=== PATIENT | male | born 1935 | race Caucasian/White ===

== ENCOUNTER 2024-02-18 15:05 | Emergency (ER) | payer MEDICARE, OTHER, SELFPAY ==
[2024-02-18 15:09] VITALS: BP 120/60
[2024-02-18 15:48] LABS: % Immature Granulocytes 0.8 % (0-0.5); % Lymphocytes 8.1 % (20.5-51.1); % Monocytes 5.3 % (1.7-9.3); % Neutrophils 85.8 % (42.2-75.2); Absolute Immature Granulocytes 0.1 10^3/uL (0-0.05); Absolute Lymphocytes 0.8 10^3/uL (1.2-3.4); Absolute Monocytes 0.6 10^3/uL (0.1-0.6); Absolute Neutrophils 8.9 10^3/uL (1.4-6.5); Hematocrit 31.7 % (39.0-52.0); Hemoglobin 9.5 g/dL (13.0-18.0); Mean Corpuscular Hgb 30.4 pg (27.0-31.0); Mean Corpuscular Volume 101.6 fL (80.0-94.0); Mean Platelet Volume 9.5 fL (7.4-10.4); Nucleated Red Blood Cells % 0 % (-); Platelet Count 214 10^3/uL (130-400); Red Blood Cell Count 3.12 10^6/uL (4.70-6.10); Red Cell Dist. Width 17.3 % (11.5-14.5); White Blood Cell Count 10.4 10^3/uL (4.8-10.8)
[2024-02-18 16:04] LABS: ALT (SGPT) 22 U/L (0-50); AST (SGOT) 26 U/L (17-59); Albumin 3.7 g/dl (3.5-5.0); Alkaline Phosphatase 70 U/L (38-126); Blood Urea Nitrogen 28 mg/dl (9-20); Carbon Dioxide 25 mmol/L (22-30); Chloride 102 mmol/L (98-107); Glucose 328 mg/dl (70-99); Potassium 4.4 mmol/L (3.5-5.1); Sodium 136 mmol/L (135-145); Total Bilirubin 0.3 mg/dl (0.2-1.3); Total Protein 6.1 g/dl (6.3-8.2); eGFR > 60.00
[2024-02-18 16:13] LABS: NT-proBNP 722 pg/ml; Troponin I 0.017 ng/ml
[2024-02-18 17:45] VITALS: BP 140/75; BMI 29.8
[2024-02-18 18:51] VITALS: BP 129/65
--- NOTE | 2024-02-18 19:00 | ED.GENMED ---
History of Present Illness
General
Chief Complaint: Breathing Problem
Source: patient
Exam Limitations: none
Time Seen by Provider: 02/18/24 17:01
Nursing documentation reviewed up to this point in time: agreed with
History of Present Illness
History of Present Illness:
Patient to ED with complaint of increasing SOB x 24 hours. Reports 2lb weight gain. Hx of CHF. Brought to ED by son for eval. Pulse ox 96% RA on arrival.
Past History
Past History
ED Past Medical History: CHF and HTN
Social History
Tobacco: Non-smoker
Alcohol: None
Drug: None
Review of Systems
Review of Systems
Allergies reviewed?: Yes
All Other Systems: ROS reviewed and negative except as documented in HPI and ROS
Constitutional: Reports no symptoms
EENT: Reports no symptoms
Respiratory: Reports trouble breathing
Cardiac: Reports no symptoms
ABD/GI: Reports no symptoms
: Reports no symptoms
Musculoskeletal: Reports no symptoms
Skin: Reports no symptoms
Neurological: Reports no symptoms
Psychiatric: Reports no symptoms
Phy Exam
General Physical Exam
General Presentation: well appearing and no apparent distress
General age: appears stated age
General Skin: warm and dry
General Habitus: normal
General Mental: alert
Cardiovascular Exam
Cardiovascular Exam: regular rate/rhythm
Pulmonary Exam
Pulmonary Exam: lungs clear, no respiratory distress and chest non tender
Musculoskeletal Exam
Musculoskeletal Exam: full ROM and neuro vasc intact
Skin Exam
Skin Exam: normal color, warm/dry and no rash
Psychiatric Exam
Psychiatric Exam: normal mood/affect
Scores
Heart Failure Risk
Heart Failure Risk Score: Yes
History of Stroke or TIA: No
History of intubation for respiratory distress: No
Heart rate on ED arrival >/= 110: No
SaO2 <90% on arrival on room air: No
HR >/=110 during 3min walk test (or too ill to perform test): No
ECG has acute ischemic changes: No
Urea >/=12mmol/L (BUN 33.6mg/dL): No
Serum CO2>/=35mmol/L: No
Troponin I or T elevated to VT Level (0.4mg/dL): No
NT-proBNP >/=5,000ng/L (5,000pg/ml): No
HF Risk Score: 0
Admission Status: LOW RISK 2.8% Consider discharge to home with f/u visit to PCP/Park Manager
Course
Orders/Labs/Results
Orders:
Orders
02/18/24 15:13
Electrocardiogram (*1) Urgent
Reason for Study: Shortness of Breath
EKG- Treatment ONCE
02/18/24 15:32
Complete Blood Count/With Diff Urgent
Comprehensive Metabolic Panel Urgent
NT-proBNP Urgent
Troponin I Urgent
02/18/24 17:12
CR Chest - 2 Views Urgent
Comment:
Reason For Exam: SOB
02/18/24 19:13
Furosemide [Lasix] 40 mg PO NOW STA
Abnormal Lab Results
02/18/24
15:32
RBC 3.12 L 10^6/uL
(4.70-6.10)
Hgb 9.5 L g/dL
(13.0-18.0)
Hct 31.7 L %
(39.0-52.0)
MCV 101.6 H fL
(80.0-94.0)
MCHC 30.0 L g/dL
(33.0-37.0)
RDW 17.3 H %
(11.5-14.5)
Abs Immat Gran (auto) 0.1 H 10^3/uL
(0-0.05)
Absolute Neuts (auto) 8.9 H 10^3/uL
(1.4-6.5)
Absolute Lymphs (auto) 0.8 L 10^3/uL
(1.2-3.4)
Immature Gran % 0.8 H %
(0-0.5)
Neutrophils % 85.8 H %
(42.2-75.2)
Lymphocytes % 8.1 L %
(20.5-51.1)
BUN 28 H mg/dl
(9-20)
Glucose 328 H mg/dl
(70-99)
Total Protein 6.1 L g/dl
(6.3-8.2)
02/18/24 15:32
02/18/24 15:32
Vital Signs
Initial and Last Documented VS:
Initial Vital Signs
Temp Pulse Resp BP Pulse Ox
97.5 F 74 20 120/60 95
02/18/24 15:09 02/18/24 15:09 02/18/24 15:09 02/18/24 15:09 02/18/24 15:09
Last Documented Vital Signs
Temp Pulse Resp BP Pulse Ox
97.5 F 64 18 133/67 100
02/18/24 15:09 02/18/24 20:00 02/18/24 20:00 02/18/24 20:00 02/18/24 20:00
*Radiology
Radiology exam reviewed: radiology read reviewed
*Pulse Oximetry
Patient hypoxic: no
*Critical Care Note
Total Time (30-74mins, 75-104mins- exclusive of procedures): Not Applicable
Update Note
Update Note:
CXR mild CHF. No hypoxemia in dept. Offered admissin but he would prefer to go home. Will double lasix x 3 days. Close follow up with PCP. Given instructions on s/s to return to ED and he is agreeable to plan.
ED Attending Note
-
Portions of this chart may have been created with voice recognition software.� Occasional wrong word or��sound alike� substitutions may have occurred due to the inherent limitations of voice recognition software.
Discharge Plan
Departure
Patient Disposition: Home (Routine Discharge)
Date of Disposition: 02/18/24
Time of Disposition: 19:14
Patient with high blood pressure during this ER visit?: No
Condition: Good
Covid-19: Not Applicable
Discharge Problem:
Mild congestive heart failure
Instructions: Heart Failure ED
Referrals:
Van John MD [Family Provider] -
Activity Restrictions/Additional Instructions:
Continue Lasix 80mg for the next 2 days. Return to the emergency department immediately for any changes in/worsening of your symptoms. Follow up with your family doctor. Your blood chemistry should be repeated in the nex 5-7 days
Interventions
Interventions:
*Risk Screen - Suicide Last Done: 02/18/24 17:45
*General Assessment Last Done: 02/18/24 17:45
*Neglect/Abuse Screening Last Done: 02/18/24 17:45
ED- Fall Risk Assessment Last Done: 02/18/24 17:45
*ED COVID-19 Vaccine History Last Done: 02/18/24 17:45
*Nursing Disposition Last Done: 02/18/24 20:07
ED- Cardiac Assessment Last Done: 02/18/24 17:45
ED- Pulmonary Assessment Last Done: 02/18/24 17:45
Discharge Date and Time
Discharge Date/Time: 02/18/24 20:07
Print Language: GEORGIAN
[2024-02-18] MEDS: LASIX 40 MG PO (19:52)
[2024-02-18 20:00] VITALS: BP 133/67
== END 2024-02-18 20:07 | disposition home or self-care (01) ==
LOC: EMR 15:05
PROVIDERS: EMERGENCY PHYSICIAN Emergency Medicine; FAMILY PHYSICIAN Family Medicine
DX: I50.9 Heart failure, unspecified (principal); I11.0 Hypertensive heart disease with heart failure
CPT/HCPCS: 99283; 71046; 80053; 83880; 84484; 85025; 93005

== ENCOUNTER 2024-02-22 15:16 | Emergency (ER) | payer MEDICARE, OTHER, SELFPAY ==
[2024-02-22 15:22] VITALS: BP 127/59
--- NOTE | 2024-02-22 16:48 | ED.GENMED ---
History of Present Illness
<Tonie London PA-C - Last Filed: 02/22/24 18:49>
General
Chief Complaint: Breathing Problem
Source: patient
Exam Limitations: none
Time Seen by Provider: 02/22/24 16:17
Nursing documentation reviewed up to this point in time: agreed with
History of Present Illness
History of Present Illness:
pt i a 88 y/o M from [facility]
h/o afib, chf, htn, hld, gerd
poor historian, hard of hearing
from [place] but has been here for about 2 month, [facility]
waiting to see cards and get established pcp
has had some shortness of breath, more than basleine the past few days
was here 02/17 and reported 2 pound weight gain so he had w.u
bnp normal
cxr showed maybe mildchf
his lasix 40 mg once a day was bumped to 80mg for 3 days
despite this, he granger still gained another 3 pounds
he feels it in his abdomen
he also has chronic GERD s ymptoms, not having them now but has had heart burn today
no cp, pleuritic pain, cough, leg swelling, vomiting, diarrhea, black stools
Past History
<Tonie London PA-C - Last Filed: 02/22/24 18:49>
Past History
ED Past Medical History: CHF and HTN
Social History
Tobacco: Non-smoker
Alcohol: None
Drug: None
Review of Systems
<Tonie London PA-C - Last Filed: 02/22/24 18:49>
Review of Systems
Allergies reviewed?: Yes
All Other Systems: Not applicable
Phy Exam
<Tonie London PA-C - Last Filed: 02/22/24 18:49>
Physical Exam
Physical Exam:
GENERAL: Alert , in no apparent distress
EYE: pupils equal and reactive
NECK: Supple
ENT: o/p clr, mmm.
CARDIAC: Regular rate and rhythm .
LUNGS: Clear breath sounds bilaterally, no acute respiratory distress, no wheezes/rales/rhonchi
ABDOMEN: Soft, obese, ? fluid wave, without focal tenderness, no r/g, no cvat, normal bowel sounds
NEUROLOGICAL: Alert and oriented, no focal neuro deficits
SKIN: Warm and dry, skin intact.
MUSCULOSKELETAL: No peripheral edema, well perfused. neg faisal's sign
PSYCH: Normal and appropriate interaction.
Course
<Tonie London PA-C - Last Filed: 02/22/24 18:49>
Orders/Labs/Results
Orders:
Orders
02/22/24 15:25
ECG [Electrocardiogram (*1)] Urgent
Reason for Study: Shortness of Breath
EKG- Treatment ONCE
02/22/24 16:40
Cardiac Monitoring- Treatment ONCE
CR Chest - 2 Views Urgent
Comment:
Reason For Exam: chf
02/22/24 17:17
Complete Blood Count/With Diff Urgent
Comprehensive Metabolic Panel Urgent
Magnesium Urgent
NT-proBNP Urgent
Troponin I Urgent
Abnormal Lab Results
02/22/24
17:17
RBC 3.20 L 10^6/uL
(4.70-6.10)
Hgb 9.8 L g/dL
(13.0-18.0)
Hct 31.7 L %
(39.0-52.0)
MCV 99.1 H fL
(80.0-94.0)
MCHC 30.9 L g/dL
(33.0-37.0)
RDW 16.9 H %
(11.5-14.5)
Abs Immat Gran (auto) 0.1 H 10^3/uL
(0-0.05)
Absolute Neuts (auto) 9.0 H 10^3/uL
(1.4-6.5)
Absolute Lymphs (auto) 0.9 L 10^3/uL
(1.2-3.4)
Immature Gran % 0.7 H %
(0-0.5)
Neutrophils % 84.5 H %
(42.2-75.2)
Lymphocytes % 8.9 L %
(20.5-51.1)
BUN 31 H mg/dl
(9-20)
Glucose 301 H mg/dl
(70-99)
Magnesium 2.4 H mg/dl
(1.6-2.3)
Total Protein 6.2 L g/dl
(6.3-8.2)
02/22/24 17:17
02/22/24 17:17
Vital Signs
Initial and Last Documented VS:
Initial Vital Signs
Temp Pulse Resp BP Pulse Ox
98.6 F 68 20 127/59 96
02/22/24 15:22 02/22/24 15:22 02/22/24 15:22 02/22/24 15:22 02/22/24 15:22
Last Documented Vital Signs
Temp Pulse Resp BP Pulse Ox
98.6 F 70 17 127/59 100
02/22/24 15:22 02/22/24 17:30 02/22/24 17:30 02/22/24 15:22 02/22/24 17:30
Libertylt;Storm Garcia, DO - Last Filed: 02/22/24 18:40>
Orders/Labs/Results
Orders:
Orders
02/22/24 15:25
ECG [Electrocardiogram (*1)] Urgent
Reason for Study: Shortness of Breath
EKG- Treatment ONCE
02/22/24 16:40
Cardiac Monitoring- Treatment ONCE
CR Chest - 2 Views Urgent
Comment:
Reason For Exam: chf
02/22/24 17:17
Complete Blood Count/With Diff Urgent
Comprehensive Metabolic Panel Urgent
Magnesium Urgent
NT-proBNP Urgent
Troponin I Urgent
Abnormal Lab Results
02/22/24
17:17
RBC 3.20 L 10^6/uL
(4.70-6.10)
Hgb 9.8 L g/dL
(13.0-18.0)
Hct 31.7 L %
(39.0-52.0)
MCV 99.1 H fL
(80.0-94.0)
MCHC 30.9 L g/dL
(33.0-37.0)
RDW 16.9 H %
(11.5-14.5)
Abs Immat Gran (auto) 0.1 H 10^3/uL
(0-0.05)
Absolute Neuts (auto) 9.0 H 10^3/uL
(1.4-6.5)
Absolute Lymphs (auto) 0.9 L 10^3/uL
(1.2-3.4)
Immature Gran % 0.7 H %
(0-0.5)
Neutrophils % 84.5 H %
(42.2-75.2)
Lymphocytes % 8.9 L %
(20.5-51.1)
BUN 31 H mg/dl
(9-20)
Glucose 301 H mg/dl
(70-99)
Magnesium 2.4 H mg/dl
(1.6-2.3)
Total Protein 6.2 L g/dl
(6.3-8.2)
02/22/24 17:17
02/22/24 17:17
Vital Signs
Initial and Last Documented VS:
Initial Vital Signs
Temp Pulse Resp BP Pulse Ox
98.6 F 68 20 127/59 96
02/22/24 15:22 02/22/24 15:22 02/22/24 15:22 02/22/24 15:22 02/22/24 15:22
Last Documented Vital Signs
Temp Pulse Resp BP Pulse Ox
98.6 F 70 17 127/59 100
02/22/24 15:22 02/22/24 17:30 02/22/24 17:30 02/22/24 15:22 02/22/24 17:30
ED Attending Note
<Tonie London PA-C - Last Filed: 02/22/24 18:49>
-
Portions of this chart may have been created with voice recognition software.� Occasional wrong word or��sound alike� substitutions may have occurred due to the inherent limitations of voice recognition software.
<Storm Garcia DO - Last Filed: 02/22/24 18:40>
ED Attending Note
Patient seen and examined by attending physician: Yes
I performed the substantive portion of visit, reviewed & personally made and approve the management plan that is documented in note by myself or NORAH.: Yes
Discharge Plan
Departure
Referrals:
Van John MD [Family Provider] -
Interventions
Interventions:
*Risk Screen - Suicide Last Done: 02/22/24 15:22
*General Assessment Last Done: 02/22/24 15:22
*Neglect/Abuse Screening Last Done: 02/22/24 15:22
ED- Fall Risk Assessment Last Done: 02/22/24 17:16
*ED COVID-19 Vaccine History Last Done: 02/22/24 17:16
ED- Cardiac Assessment Last Done: 02/22/24 17:16
ED- Pulmonary Assessment Last Done: 02/22/24 17:16
Discharge Date and Time
Print Language: ALBANIAN
[2024-02-22 17:16] VITALS: BMI 31.0
[2024-02-22 17:36] LABS: % Basophils 0.1 % (0-2); % Immature Granulocytes 0.7 % (0-0.5); % Lymphocytes 8.9 % (20.5-51.1); % Monocytes 5.8 % (1.7-9.3); % Neutrophils 84.5 % (42.2-75.2); Absolute Immature Granulocytes 0.1 10^3/uL (0-0.05); Absolute Lymphocytes 0.9 10^3/uL (1.2-3.4); Absolute Monocytes 0.6 10^3/uL (0.1-0.6); Hematocrit 31.7 % (39.0-52.0); Hemoglobin 9.8 g/dL (13.0-18.0); Mean Corp Hgb Conc. 30.9 g/dL (33.0-37.0); Mean Corpuscular Hgb 30.6 pg (27.0-31.0); Mean Corpuscular Volume 99.1 fL (80.0-94.0); Mean Platelet Volume 9.5 fL (7.4-10.4); Nucleated Red Blood Cells % 0 % (-); Platelet Count 206 10^3/uL (130-400); Red Cell Dist. Width 16.9 % (11.5-14.5); White Blood Cell Count 10.6 10^3/uL (4.8-10.8)
[2024-02-22 17:55] LABS: ALT (SGPT) 22 U/L (0-50); AST (SGOT) 32 U/L (17-59); Albumin 3.7 g/dl (3.5-5.0); Alkaline Phosphatase 61 U/L (38-126); Blood Urea Nitrogen 31 mg/dl (9-20); Calcium 9.2 mg/dl (8.4-10.2); Carbon Dioxide 27 mmol/L (22-30); Chloride 102 mmol/L (98-107); Estimated Creatinine Clearance 50 ml/min; Glucose 301 mg/dl (70-99); Magnesium 2.4 mg/dl (1.6-2.3); Potassium 4.7 mmol/L (3.5-5.1); Sodium 136 mmol/L (135-145); Total Bilirubin 0.5 mg/dl (0.2-1.3); Total Protein 6.2 g/dl (6.3-8.2); eGFR 58.89
[2024-02-22 17:59] LABS: NT-proBNP 417 pg/ml; Troponin I < 0.012 ng/ml
[2024-02-22 18:00] VITALS: BP 117/66
[2024-02-22 19:00] VITALS: BP 119/68
[2024-02-22 19:11] LABS: Glucose - Point of Care 252 mg/dl (70-99)
== END 2024-02-22 19:45 | disposition home or self-care (01) ==
LOC: EMR 15:16
PROVIDERS: Physician Assistant; EMERGENCY PHYSICIAN Emergency Medicine; FAMILY PHYSICIAN Family Medicine
DX: R06.02 Shortness of breath (principal); R12 Heartburn; I48.91 Unspecified atrial fibrillation; I11.0 Hypertensive heart disease with heart failure; I50.9 Heart failure, unspecified; E78.5 Hyperlipidemia, unspecified; K21.9 Gastro-esophageal reflux disease without esophagitis; I71.40 Abdominal aortic aneurysm, without rupture, unspecified; J84.9 Interstitial pulmonary disease, unspecified; E11.9 Type 2 diabetes mellitus without complications; F41.9 Anxiety disorder, unspecified; H91.90 Unspecified hearing loss, unspecified ear; E03.9 Hypothyroidism, unspecified; Z96.651 Presence of right artificial knee joint; Z86.73 Personal history of transient ischemic attack (TIA), and cerebral infarction without residual deficits; Z79.84 Long term (current) use of oral hypoglycemic drugs
CPT/HCPCS: 99283; 71046; 80053; 82962; 83735; 83880; 84484; 85025; 93005

== ENCOUNTER 2024-03-03 07:49 | Outpatient (RCR) | payer MEDICARE, OTHER, SELFPAY ==
[2024-03-03 08:07] VITALS: BP 126/65
[2024-03-03] MEDS: SODIUM BICARBONATE 1150 MEQ IV (08:19)
== END 2024-03-26 23:59 | disposition home or self-care (01) ==
LOC: OID 07:49
PROVIDERS: ATTENDING PHYSICIAN Surgery Vascular Surgery; FAMILY PHYSICIAN Family Medicine
DX: I71.40 Abdominal aortic aneurysm, without rupture, unspecified (principal); I65.29 Occlusion and stenosis of unspecified carotid artery; I73.9 Peripheral vascular disease, unspecified
CPT/HCPCS: 74174; 96365; 96366; Q9967

== ENCOUNTER → 2024-03-03 08:41 | Outpatient (REF) | payer MEDICARE, OTHER, SELFPAY | LOC: RAD 08:41 | PROVIDERS: ATTENDING PHYSICIAN Surgery Vascular Surgery; FAMILY PHYSICIAN Family Medicine | DX: I71.40 Abdominal aortic aneurysm, without rupture, unspecified (principal) | CPT/HCPCS: 74174; Q9967 ==

== ENCOUNTER 2024-03-04 16:10 | Inpatient (IN) | payer MEDICARE, OTHER, SELFPAY ==
[2024-03-04] VITALS (31 sets, daily range): BP systolic 76–121; BP diastolic 45–101; BMI 29.8
--- NOTE | 2024-03-04 11:50 | ED.GENMED ---
History of Present Illness
<Aimee Lechuga PA-C - Last Filed: 03/04/24 16:20>
General
Chief Complaint: Breathing Problem
Source: patient
Exam Limitations: none
Time Seen by Provider: 03/04/24 11:49
Nursing documentation reviewed up to this point in time: agreed with
History of Present Illness
History of Present Illness:
This is an 88-year-old male with a history of CVA, A-fib not anticoagulated, diabetes, interstitial lung disease on chronic antibiotics, chronic osteomyelitis, AAA, hypertension, hyperlipidemia presenting to emergency department today with concerns
of respiratory distress. When asked, patient states he is not sure why he is here. Patient denies any shortness of breath but does report that he has been coughing the past 2 weeks its gotten a lot worse. Patient also admits to an episode of
nausea and vomiting today. Patient denies any fevers or chills. Patient denies any chest pain. Patient denies any jaw pain or pain in his arm. Spoke to staff from assisted who reports that patient was grunting and moaning a lot today which
is not his baseline, he was satting 86 to 88% on 2 L at the assisted and appeared to look ashy and his respirations were increased. [facility] also reports that patient has had a decreased appetite recently. Patient is extremely hard of
hearing. Patient has no history of dementia per assisted staff. Patient denies any abdominal pain, back pain. Of note, patient had office appointment last night with Dr. Berumen to get a screening CT scan to assess the status of his AAA. EMS
reports that patient had a UTI recently and was put on antibiotic, however there is no evidence of this in our records.
Past History
<Aimee Lechuga PA-C - Last Filed: 03/04/24 16:20>
Past History
ED Past Medical History: CHF and HTN
Social History
Tobacco: Non-smoker
Alcohol: None
Drug: None
Review of Systems
<Aimee Lechuga PA-C - Last Filed: 03/04/24 16:20>
Review of Systems
All Other Systems: ROS reviewed and negative except as documented in HPI and ROS
Phy Exam
<Aimee Lechuga PA-C - Last Filed: 03/04/24 16:20>
Physical Exam
Physical Exam:
General: Patient is chronically ill appearing, but non-toxic
Skin: Warm and dry, no rashes or lesions
Head: Normocephalic, atraumatic
Eyes: Sclera non-icteric. EOMs intact. PERRLA.
Cardiac: Regular rate and rhythm, no murmurs
Peripheral Vascular: No lower extremity swelling or edema
Pulm: Patient is grunting, moaning with exhale, has increased respiratory rate; no crackles, no rhonchi
Abdomen: No abdominal tenderness to palpation
Neuro: CN II-XII intact, no focal neurologic deficits.
Psychiatric: Appropriate mood and affect.
Scores
<Aimee Lechuga PA-C - Last Filed: 03/04/24 16:20>
Heart Failure Risk
Heart Failure Risk Score: Yes
History of Stroke or TIA: Yes
History of intubation for respiratory distress: No (unknown)
Heart rate on ED arrival >/= 110: No
SaO2 <90% on arrival on room air: Yes
HR >/=110 during 3min walk test (or too ill to perform test): No
ECG has acute ischemic changes: No
Urea >/=12mmol/L (BUN 33.6mg/dL): No
Serum CO2>/=35mmol/L: No
Troponin I or T elevated to CO Level (0.4mg/dL): No
NT-proBNP >/=5,000ng/L (5,000pg/ml): No
HF Risk Score: 2
Admission Status: MEDIUM RISK 9.2% Consider observation or discharge to home with homecare & f/u visit to PCP/[facility], or SNF for treatment
PE Wells Score
Symptoms of DVT: No
No alternative diagnosis better explains the illness: No
Tachycardia with pulse > 100: Yes
Immobilization (>=3 days) or surgery within previous 4 weeks: No
Prior history of DVT or pulmonary embolism: No
Presence of hemoptysis: No
Presence of malignancy: No
Pulmonary Embolism Risk Score: 1.5
Probability of PE: Pt is low risk
Course
<Aimee Lechuga PA-C - Last Filed: 03/04/24 16:20>
Orders/Labs/Results
Orders:
Orders
03/04/24 11:55
Electrocardiogram (*1) Urgent
Reason for Study: Other
Other Reason for Exam: Respiratory Distress
Cardiac Monitoring- Treatment ONCE
EKG- Treatment ONCE
IV Insert/Care/Rem.- Treatment PRN
CR Chest - 2 Views Urgent
Comment:
Reason For Exam: respiratory distress
O2 Therapy [RESP] Urgent
Titrate/Wean O2 to maintain O2 sat greater than (%): 93
Special Instructions: TO MAINTAIN CONTINUOUS O2 SATS >/= 93%
Pulse Ox/cont/shift [RESP] Urgent
Quantity: 1
Special Instructions: continuous pulse ox
03/04/24 12:03
Complete Blood Count/With Diff Urgent
Comprehensive Metabolic Panel Urgent
NT-proBNP Urgent
Troponin I Urgent
03/04/24 12:25
Electrocardiogram (*1) Urgent
Reason for Study: Tachycardia
EKG- Treatment ONCE
03/04/24 12:29
Acetaminophen [Tylenol] 1,000 mg PO NOW STA
03/04/24 12:30
Acetaminophen [Tylenol] 1,000 mg .ROUTE .STK-MED ONE
03/04/24 12:42
0.9% Sodium Chloride 500 ml [Nss] 500 ml IV BOLUS
03/04/24 12:45
Diltiazem 125 mg/125 ml Nss [Cardizem] 125 mg in 125 ml IV NOW
Initial dose in mg/hr, then titrate:: 5
Titrate to keep:: Heart rate 80-100 bpm
Titrate by mg/hr:: 5 mg/hr
Frequency of titrations (minutes):: 15
Maximum dose in mg/hr:: 15
Diltiazem HCl [Cardizem] 10 mg IV NOW STA
03/04/24 15:11
Troponin I Q8H
03/04/24 15:28
Admit/Transfer Patient As Directed
Co-Sign Provider:
Level of Care: Inpatient admission
Assign to:: Telemetry
Physician / Group: hospitalist
Diagnosis: Shortness of breath
Reason for Telemetry: Arrhythmia
Date to Stop Telemetry: 03/07/24
Time to Stop Telemetry: 11:00
Reason for Hospitalization: Shortness of breath
Expected length of stay greater than two midnights?: Yes
ELOS- Estimated Length of Stay in days: 4
I certify the patient meets the requirements for IP care: Yes
03/04/24 15:35
Code Status As Directed
Resuscitation Status: Do not resuscitate
Reached after discussion with pt or family/Healthcare POA: Yes
DNR Bracelet Application ONCE
03/04/24 15:46
Furosemide [Lasix] 80 mg IV NOW STA
03/04/24 23:00
Troponin I Q8H
03/05/24 07:00
Troponin I Q8H
03/07/24 11:00
DC Protocol for Telemetry ONCE
Abnormal Lab Results
03/04/24
12:03
RBC 3.63 L 10^6/uL
(4.70-6.10)
Hgb 10.9 L g/dL
(13.0-18.0)
Hct 35.2 L %
(39.0-52.0)
MCV 97.0 H fL
(80.0-94.0)
MCHC 31.0 L g/dL
(33.0-37.0)
RDW 16.5 H %
(11.5-14.5)
Abs Immat Gran (auto) 0.1 H 10^3/uL
(0-0.05)
Absolute Neuts (auto) 8.9 H 10^3/uL
(1.4-6.5)
Absolute Lymphs (auto) 0.9 L 10^3/uL
(1.2-3.4)
Neutrophils % 84.4 H %
(42.2-75.2)
Lymphocytes % 8.2 L %
(20.5-51.1)
BUN 22 H mg/dl
(9-20)
Glucose 161 H mg/dl
(70-99)
Troponin I 0.037 H* ng/ml
Total Protein 5.9 L g/dl
(6.3-8.2)
03/04/24 12:03
03/04/24 12:03
Vital Signs
Initial and Last Documented VS:
Initial Vital Signs
Temp Pulse Resp BP Pulse Ox
98.9 F 84 25 110/74 94
03/04/24 11:56 03/04/24 11:56 03/04/24 11:56 03/04/24 11:56 03/04/24 11:56
Last Documented Vital Signs
Temp Pulse Resp BP Pulse Ox
100.4 F H 115 21 94/63 97
03/04/24 12:18 03/04/24 16:05 03/04/24 16:05 03/04/24 16:00 03/04/24 16:05
<Stanford Ames Erick, DO - Last Filed: 03/04/24 13:56>
Orders/Labs/Results
Orders:
Orders
03/04/24 11:55
Electrocardiogram (*1) Urgent
Reason for Study: Other
Other Reason for Exam: Respiratory Distress
Cardiac Monitoring- Treatment ONCE
EKG- Treatment ONCE
IV Insert/Care/Rem.- Treatment PRN
CR Chest - 2 Views Urgent
Comment:
Reason For Exam: respiratory distress
O2 Therapy [RESP] Urgent
Titrate/Wean O2 to maintain O2 sat greater than (%): 93
Special Instructions: TO MAINTAIN CONTINUOUS O2 SATS >/= 93%
Pulse Ox/cont/shift [RESP] Urgent
Quantity: 1
Special Instructions: continuous pulse ox
03/04/24 12:03
Complete Blood Count/With Diff Urgent
Comprehensive Metabolic Panel Urgent
NT-proBNP Urgent
Troponin I Urgent
03/04/24 12:25
Electrocardiogram (*1) Urgent
Reason for Study: Tachycardia
EKG- Treatment ONCE
03/04/24 12:29
Acetaminophen [Tylenol] 1,000 mg PO NOW STA
03/04/24 12:30
Acetaminophen [Tylenol] 1,000 mg .ROUTE .STK-MED ONE
03/04/24 12:42
0.9% Sodium Chloride 500 ml [Nss] 500 ml IV BOLUS
03/04/24 12:45
Diltiazem 125 mg/125 ml Nss [Cardizem] 125 mg in 125 ml IV NOW
Initial dose in mg/hr, then titrate:: 5
Titrate to keep:: Heart rate 80-100 bpm
Titrate by mg/hr:: 5 mg/hr
Frequency of titrations (minutes):: 15
Maximum dose in mg/hr:: 15
Diltiazem HCl [Cardizem] 10 mg IV NOW STA
03/04/24 15:11
Troponin I Q8H
03/04/24 15:28
Admit/Transfer Patient As Directed
Co-Sign Provider:
Level of Care: Inpatient admission
Assign to:: Telemetry
Physician / Group: hospitalist
Diagnosis: Shortness of breath
Reason for Telemetry: Arrhythmia
Date to Stop Telemetry: 03/07/24
Time to Stop Telemetry: 11:00
Reason for Hospitalization: Shortness of breath
Expected length of stay greater than two midnights?: Yes
ELOS- Estimated Length of Stay in days: 4
I certify the patient meets the requirements for IP care: Yes
03/04/24 15:35
Code Status As Directed
Resuscitation Status: Do not resuscitate
Reached after discussion with pt or family/Healthcare POA: Yes
DNR Bracelet Application ONCE
03/04/24 15:46
Furosemide [Lasix] 80 mg IV NOW STA
03/04/24 23:00
Troponin I Q8H
03/05/24 07:00
Troponin I Q8H
03/07/24 11:00
DC Protocol for Telemetry ONCE
Abnormal Lab Results
03/04/24
12:03
RBC 3.63 L 10^6/uL
(4.70-6.10)
Hgb 10.9 L g/dL
(13.0-18.0)
Hct 35.2 L %
(39.0-52.0)
MCV 97.0 H fL
(80.0-94.0)
MCHC 31.0 L g/dL
(33.0-37.0)
RDW 16.5 H %
(11.5-14.5)
Abs Immat Gran (auto) 0.1 H 10^3/uL
(0-0.05)
Absolute Neuts (auto) 8.9 H 10^3/uL
(1.4-6.5)
Absolute Lymphs (auto) 0.9 L 10^3/uL
(1.2-3.4)
Neutrophils % 84.4 H %
(42.2-75.2)
Lymphocytes % 8.2 L %
(20.5-51.1)
BUN 22 H mg/dl
(9-20)
Glucose 161 H mg/dl
(70-99)
Troponin I 0.037 H* ng/ml
Total Protein 5.9 L g/dl
(6.3-8.2)
03/04/24 12:03
03/04/24 12:03
Vital Signs
Initial and Last Documented VS:
Initial Vital Signs
Temp Pulse Resp BP Pulse Ox
98.9 F 84 25 110/74 94
03/04/24 11:56 03/04/24 11:56 03/04/24 11:56 03/04/24 11:56 03/04/24 11:56
Last Documented Vital Signs
Temp Pulse Resp BP Pulse Ox
100.4 F H 115 21 94/63 97
03/04/24 12:18 03/04/24 16:05 03/04/24 16:05 03/04/24 16:00 03/04/24 16:05
[facility];Aimee Lechuga PA-C - Last Filed: 03/04/24 16:20>
MDM/Problems Addressed
Differential Diagnosis Includes:
ddx include pneumonia, acute bronchitis, pleural effusion, heart failure exacerbation, ACS,
MDM/Problems Addressed:
Shortness of breath:
This is an 88-year-old male with a history of CVA, A-fib not anticoagulated, diabetes, interstitial lung disease on chronic antibiotics, chronic osteomyelitis, AAA, hypertension, hyperlipidemia presenting to emergency department today with concerns
of respiratory distress. Patient denies any shortness of breath but does report that he has been coughing the past 2 weeks its gotten a lot worse. Patient also admits to an episode of nausea and vomiting today. Patient denies any fevers or chills.
Patient denies any chest pain. Patient denies any jaw pain or pain in his arm. Spoke to staff from assisted who reports that patient was grunting and moaning a lot today which is not his baseline, he was satting 86 to 88% on 2 L at the
assisted and appeared to look ashy and his respirations were increased. While here in the emergency department, patient went into rapid A-fib with RVR, and developed a fever. Diltiazem drip was started. Chest x-ray looks like there is a
increased interstitial markings may be consistent with pulmonary edema, no clear pneumonia, etiology of fever unclear at this time. Rate did come down, case discussed with Dr. Suarez, patient referred for admission.
Chronic conditions affecting care:
AAA, HTN, CHF,
<Aimee Lechuga PA-C - Last Filed: 03/04/24 16:20>
*Pulse Oximetry
Patient hypoxic: yes
*Fuel Injection Servicer Interpretation
Rate: tachycardiac
Interpretation: abnormal
Heart Rate: 120
Rhythm: a-fib
*Critical Care Note
Total Time (30-74mins, 75-104mins- exclusive of procedures): Not Applicable (see critical care note )
comment:
Critical care statement: A total of 30 minutes of critical care time was provided for this patient. This includes management of unstable vital signs, evaluation of the patient at bedside, frequent reassessment, discussion with
consultants/hospitalist, and review of pertinent medical records. This time was separate from time utilized to perform any aforementioned documented procedures.
<Aimee Lechuga PA-C - Last Filed: 03/04/24 16:20>
Patient Management
Discussion with other providers: Hospitalist
Escalation/DeEscalation of care consider admission/obs:
Admission indicated.
<Aimee Lechuga PA-C - Last Filed: 03/04/24 16:20>
Update Note
Update Note:
12:25 pm: Patient initially satting 95 and above on room air here in the emergency department, while upon reviewing the monitor, patient sat decreased in the mid to high 80s and patient was put on 2 L. He also was noted to be tachycardic at that
time with his rate in the 120s to 130s and it appeared that he went in A-fib. EKG was repeated which demonstrated A-fib with RVR. Patient reports that he was diagnosed with A-fib years and years ago, and is not able to tell when he goes into
A-fib. He does not feel any palpitations currently. He denies chest pain. He is also noted to now have a fever of 100.4. Due to his blood pressure being soft, his tachycardia, diltiazem drip was started and a 500 ml bolus was started. My
attending Dr. Mcgarry made aware. Tylenol given to treat his fever.
ED Attending Note
<Aimee Lechuga PA-C - Last Filed: 03/04/24 16:20>
-
Portions of this chart may have been created with voice recognition software.� Occasional wrong word or��sound alike� substitutions may have occurred due to the inherent limitations of voice recognition software.
<Stanford Suarez DO - Last Filed: 03/04/24 13:56>
ED Attending Note
Patient seen and examined by attending physician: Yes
I performed the substantive portion of visit, reviewed & personally made and approve the management plan that is documented in note by myself or NORAH.: Yes
I performed a history and physical exam of patient and discussed management with resident, I reviewed resident's note and agree with documented findings and plan of care.: Yes
ED Attending Note:
I evaluated patient at bedside. The patient is chronically ill in appearance. He is borderline hypotensive and tachycardic here in rapid A-fib. He was placed on Cardizem bolus and drip we also gave an IV fluid bolus. He does have a history of
heart failure. He has a history of interstitial lung disease. Chest x-ray does show some degree of worsening but is unclear if this is related to pulmonary edema versus worsening interstitial lung disease. Troponin borderline.
Discharge Plan
Departure
Patient Disposition: Admit
Date of Disposition: 03/04/24
Time of Disposition: 14:07
Admit to: Telemetry
Presentation/result/management discussed w/ accepting MD/DO: Hospitalist
Condition: Fair
Discharge Problem:
Atrial fibrillation with rapid ventricular response, Hypoxia
Interventions
Interventions:
*Risk Screen - Suicide Last Done: 03/04/24 12:00
*General Assessment Last Done: 03/04/24 12:00
*Neglect/Abuse Screening Last Done: 03/04/24 12:00
ED- Fall Risk Assessment Last Done: 03/04/24 12:00
*ED COVID-19 Vaccine History Last Done: 03/04/24 12:00
ED- Cardiac Assessment Last Done: 03/04/24 12:00
ED- Pulmonary Assessment Last Done: 03/04/24 13:11
[2024-03-04 12:12] LABS: % Basophils 0.2 % (0-2); % Eosinophils 0.7 % (0-6); % Immature Granulocytes 0.5 % (0-0.5); % Lymphocytes 8.2 % (20.5-51.1); % Neutrophils 84.4 % (42.2-75.2); Absolute Eosinophils 0.1 10^3/uL (0-0.7); Absolute Immature Granulocytes 0.1 10^3/uL (0-0.05); Absolute Lymphocytes 0.9 10^3/uL (1.2-3.4); Absolute Monocytes 0.6 10^3/uL (0.1-0.6); Absolute Neutrophils 8.9 10^3/uL (1.4-6.5); Hematocrit 35.2 % (39.0-52.0); Hemoglobin 10.9 g/dL (13.0-18.0); Mean Platelet Volume 9.5 fL (7.4-10.4); Nucleated Red Blood Cells % 0 % (-); Platelet Count 210 10^3/uL (130-400); Red Blood Cell Count 3.63 10^6/uL (4.70-6.10); Red Cell Dist. Width 16.5 % (11.5-14.5); White Blood Cell Count 10.6 10^3/uL (4.8-10.8)
[2024-03-04 12:30] LABS: ALT (SGPT) 17 U/L (0-50); AST (SGOT) 23 U/L (17-59); Albumin 3.5 g/dl (3.5-5.0); Alkaline Phosphatase 73 U/L (38-126); Blood Urea Nitrogen 22 mg/dl (9-20); Calcium 8.7 mg/dl (8.4-10.2); Carbon Dioxide 28 mmol/L (22-30); Chloride 102 mmol/L (98-107); Estimated Creatinine Clearance 48 ml/min; Glucose 161 mg/dl (70-99); Sodium 137 mmol/L (135-145); Total Bilirubin 0.8 mg/dl (0.2-1.3); Total Protein 5.9 g/dl (6.3-8.2); eGFR > 60.00
[2024-03-04 12:42] LABS: NT-proBNP 1060 pg/ml; Troponin I 0.037 ng/ml
--- NOTE | 2024-03-04 12:55 | PHANOTE ---
med rec note- called [facility] for missing page 2 of patient medication list
[2024-03-04] MEDS: CARDIZEM 10 MG IV (13:03)
[2024-03-04] MEDS: NSS 500 IV (13:04)
[2024-03-04] MEDS: TYLENOL 1000 MG PO (13:04)
[2024-03-04] MEDS: CARDIZEM 125 IV (13:05)
--- NOTE | 2024-03-04 14:43 | HPS.HSE ---
Addendum entered and electronically signed by Pancho Lawrence MD 03/05/24 08:26:
5. AAA
-CT A/p 03/03 showing infrarenal abdominal aortic aneurysm of 6.8 cm continual thrombus.
-Initial test was ordered by Dr. Berumen as patient is known to have AAA and patient has moved locally in the area and needs follow-up with vascular surgeon
-CT abdomen pelvis images reviewed. Vascular surgeon have been consulted for further opinion.
Addendum entered and electronically signed by Pancho Lawrence MD 03/04/24 18:36:
I personally performed a history and physical exam of the patient and discussed management with the resident. I reviewed the resident's note and agree with the documented findings and plan of care HPI/CC.
Patient is 88-year-old male with past medical history of heart failure type unknown, A-fib type unknown not on anticoagulation due to history of severe epistaxis, abdominal aortic aneurysm came to ER with new onset of shortness of breath. Patient
noted to be hypoxic in ER. Patient also have A-fib with RVR. Of note patient had a CT abdomen pelvis by Dr. Berumen to evaluate known abdominal aortic aneurysm which showed a large 6.8 cm abdominal aortic aneurysm with intramural thrombus.
1. Acute hypoxic resp insuff
-Chest x-ray showing some chronic changes of known interstitial lung disease
-CT abdomen pelvis lower lung section showing some peripheral pulmonary scarring in my opinion as well
-No overt volume overload but likely pulmonary congestion with A-fib RVR/heart failure exacerbation contributing to patient hypoxia
-Treat underlying causes as mentioned below, wean off oxygen as possible
2. A-fib with RVR
-Presumed paroxysmal in nature
-Patient not been on anticoagulation due to recurrent epistaxis.
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
-Maintain patient on IV Cardizem drip
-Cardio evaluation
3. Heart failure with unknown variety
-Baseline weight of 205 to 210 pound per son
-No significant lower extremity edema. proBNP marginally elevated to 1060
-Patient on Lasix 40 g daily at home
-Maintain on Lasix 40 g twice daily while in hospital
-Follow-up weight and creatinine
-Follow-up echocardiogram
4. Fever of unknown origin
-No leukocytosis.
-Check blood cultures/UA/COVID
-If repeat fever of greater than 100.5 Fahrenheit will need to start on Zosyn versus Rocephin/Doxy
DNR/DNI
Original Note:
Family Physician
-
Family Physician: Van John
Chief Complaint
-
Hypoxia
History of Present Illness
88-year-old male with a past medical history of chronic osteomyelitis interstitial lung disease A-fib not on anticoagulation AAA and diabetes presents from [facility] for concerns of respiratory distress. Overnight patient's son said that
he started having worsening shortness of breath and increased fatigue. Today his nursing team reported that he was having some grunting and desatted to 88% on 2 L. Patient denies being short of breath, chest pain but does endorse a cough, chronic.
In the ED patient was satting well on 2 L and then went into rapid A-fib, he was asymptomatic and was also found to have a fever of 100.4. In the ED patient was given 500 L bolus of normal saline as well as started on 15 mg/h of diltiazem for his
A-fib. Chest x-ray was done in the ED.
Medical History
Past Medical History
Past Medical History: Reports Arrhythmia, CHF, GERD, HTN, Hypercholesterolemia, IDDM and Valvular Disease
Past Surgical History: Reports Other
Additional Past Surgical History:
Carotid artery endarterectomy, kyphoplasty
Social History
Tobacco: Smoker
Alcohol: None
Drug: None
Living: Assisted Living
Employment: Retired
Family History
Family History: Not pertinent
Allergies / Home Medications
Allergies reflects when Allergies were last updated in [facility].
Home Medications with original date entered in [facility]
Allergy/Medication List:
Alogliptin 25 mg p.o. alprazolam 0.5 mg p.o. daily as needed cefdinir 300 mg p.o. 3 times daily cephalexin 500 mg p.o. 3 times daily docusate sodium 200 mg p.o. twice daily furosemide 40 mg p.o. daily Osteo Bi-Flex 5 naloxone 1 tab levothyroxine 100
mcg p.o. lisinopril 2.5 mg metoprolol succinate 25 mg p.o. mycophenolate mofetil 1000 mg p.o. twice daily nitroglycerin 0.4 mg sublingual every 5 as needed prednisone 20 mg p.o. daily pregabalin 50 mg p.o. 3 times daily rosuvastatin 20 mg p.o.
sertraline 25 mg p.o. TMP-SMX 1 tab p.o. wound gel and senna
Allergies include codeine
Review of Systems
-
History Source: Family
Constitutional: Reports Fatigue
EENT: Reports No Symptoms
Respiratory: Reports Cough and Trouble Breathing
Cardiac: Reports Palpitations
Abdomen/GI: Reports No Symptoms
: Reports No Symptoms
Skin: Reports No Symptoms
Neurological: Reports No Symptoms
Physical Exam
Vital Signs
Vital Signs
Temp Pulse Resp BP Pulse Ox
100.4 F H 107 19 90/74 97
03/04/24 12:18 03/04/24 14:40 03/04/24 14:40 03/04/24 14:30 03/04/24 14:40
Physical Exam
General: Well Developed, Well Nourished, Comfortable and Obese
Cardiac: S1/S2, Irregular Rhythm and Tachycardia
GI: Soft, Normal Bowel Sounds and Distended
Genito-urinary: Deferred by me
Skin: Warm and Dry
Laboratory Results
-
03/04/24 12:03
03/04/24 12:03
Laboratory Results
Total Bilirubin 0.8 mg/dl (0.2-1.3) 03/04/24 12:03
AST 23 U/L (17-59) 03/04/24 12:03
ALT 17 U/L (0-50) 03/04/24 12:03
Alkaline Phosphatase 73 U/L (38-126) 03/04/24 12:03
Troponin I 0.037 ng/ml H* 03/04/24 12:03
Data Reviewed
-
Diagnostic Radiology: Image Personally Visualized and interpreted, Report Reviewed by me and Discussed with Physician
Medical Tests (Nuc Med, Echo, EKG etc): Image Personally Visualized and interpreted and Report Reviewed by me
Lab Data: Labs Reviewed by me and Discussed with Physician
Impression/Plan
-
IMPRESSION:
88-year-old male presents for worsening shortness of breath and hypoxia. History obtained from son as patient continuously falls asleep while trying to interview
PLAN:
#Hypoxic respiratory insufficiency
-Reported 1 day worsening of shortness of breath, as well as 1 week of chronic cough which has been worsening
-Chest x-ray in ED demonstrated no acute disease of chest, mild cardiomegaly
-Likely multifactorial
-At baseline patient uses 2 to 2-1/2 L of oxygen at night
-Currently requires 3 L and is satting 97%
-40 mg IV Lasix initiated in ED
-40 mg IV twice daily will be initiated tomorrow
#A-fib with RVR
-Past medical history of paroxysmal A-fib,
-[id number] score of 8
-Not anticoagulated due to chronic epistaxis
-Cardiology consulted
-Anticoagulation decision will be deferred to cardiology
-Patient does not have a hand rug cleaner established in [place] as he just moved here from [place]
-Patient started on diltiazem 10 mg given IV, as well as continuous 125 mg/125 mL solution
#Acute on chronic heart failure, type unknown
Reports a history of heart failure etiology, unknown
-Echocardiogram ordered
-Cardiology consulted
#Interstitial fibrosis
-Patient is a [id number] history of smoking
-Patient son reports agent orange exposure in [place], unknown if contributing factor
-CT abdomen pelvis on 03/03/2024 demonstrated mild reticular interstitial thickening at the lung bases suggestive of mild interstitial fibrosis
-Follows Dr. Elder
1800-calorie diabetic diet
DVT prophylaxis: Lovenox 40 mg subcu
DNR/DNI
[2024-03-04 15:58] LABS: Troponin I 0.031 ng/ml
[2024-03-04 17:38] LABS: INR 1.23; PT 15.3 Sec (11.4-14.6)
--- NOTE | 2024-03-04 17:57 | PTCARENOTE ---
received patient from ER, placed on monitor, Afib with a HR 89, IV Cardizem gtt. on at 10ml/hr, BP 87/60, decreased gtt. to 5ml/hr. repeated BP in 30 min. 88/59, Dr. Haile in room, turned IV Cardizem drip off. also will not give IV Lasix due to
BP, MD aware. o2 sat on 2LNC, 96%, lung aponte diminished, shallow breathing. patient able to sit and stand at bedside for a very short time to void then fell back on bed, assist x 2.patient is very [place], son at bedside. patient lives at the [facility].
patiernt oriented to room and call [place] system, demonstrated how to call nurse by pressing red button.
[2024-03-04] MEDS: LYRICA 50 MG PO ×2 (18:49→22:51)
[2024-03-04] MEDS: LOVENOX 40 MG SC (18:49)
--- NOTE | 2024-03-04 19:35 | CON.CAR ---
Consultation
Consultation Request
Date/Time Consultation Requested: March 04, 2024 5:10 PM
Date/Time Consultation Performed: March 04, 2024 7:30 PM
Requesting Provider: Hospitalist
Performing Provider: Geoff Haile
Reason for Consultation: AF RVR
Medical History
-
Chief Complaint: hypoxia
History of Present Illness:
88-year-old male with history of A-fib paroxysmal not on anticoagulation given recurrent epistaxis and fall risk, interstitial lung disease on chronic oxygen at night, multiple mini strokes, AAA 6.4 cm, chronic osteomyelitis, hyperlipidemia,
hypertension, rheumatoid arthritis? Who was brought in for concerns of respiratory distress. Majority of the interview is obtained from patient's son, Law, as patient is unable to provide accurate history. According to Law he had decreased
appetite that started on Sunday. He then progressed to having confusion on Sunday and then today was noted to be hypoxic. He was potentially being treated for a UTI after a Berumen was removed. For this he was brought to the emergency room. In the
emergency room he was found to be febrile at 100.4 degrees and in A-fib with RVR. He was started on dilt drip, however, he then developed hypotension. The dilt drip was then stopped.
Past Medical History
Past Medical History: Other ( A-fib paroxysmal not on anticoagulation given recurrent epistaxis and fall risk, AAA 6.4 cm, chronic osteomyelitis, hyperlipidemia, hypertension, rheumatoid arthritis?)
Past Surgical History: Other (Unable to obtain)
Social History
Tobacco: Smoker
Alcohol: None
Drug: None
Personal: Single
Living: Assisted Living
Employment: Retired
Family History
Family History: Reviewed & Not Pertinent
Allergies / Home Medications
Allergy/AdvReac Type Severity Reaction Status Date / Time
codeine Allergy Unknown Verified 03/03/24 08:27
�Medication �Instructions �Recorded �Confirmed �Type
alogliptin 25 mg tablet 25 mg PO DAILY 03/03/24 03/04/24 History
alprazolam 0.5 mg tablet 0.5 mg PO DAILYPRN PRN anxiety 03/03/24 03/04/24 History
cephalexin 500 mg tablet 500 mg PO TID 03/03/24 03/04/24 History
docusate sodium 100 mg tablet 200 mg PO BID 03/03/24 03/04/24 History
furosemide 40 mg tablet 40 mg PO DAILY 03/03/24 03/04/24 History
glucosamine WPr-V0-Faorxuttl 1 tab PO DAILY 03/03/24 03/04/24 History
rigoberto 1,500 mg-400 unit-100 mg
tablet (Osteo Bi-Flex (5-Loxin))
levothyroxine 100 mcg capsule 100 mcg PO DAILY 03/03/24 03/04/24 History
lisinopril 2.5 mg tablet 2.5 mg PO DAILY 03/03/24 03/04/24 History
metoprolol succinate 25 mg 25 mg PO DAILY 03/03/24 03/04/24 History
tablet,extended release 24 hr
zacimnof-ksw-vpmsg 200 mcg-lycop 1 tab PO DAILY 03/03/24 03/04/24 History
175 mcg-lutei 250 mcg-herb 178
tablet (Del Multivitamin For Men)
mycophenolate mofetil 500 mg tablet 1,000 mg PO BID 03/03/24 03/04/24 History
nitroglycerin 0.4 mg sublingual 0.4 mg sublingual Q5M PRN angina 03/03/24 03/04/24 History
tablet
prednisone 20 mg tablet 20 mg PO DAILY 03/03/24 03/04/24 History
pregabalin 50 mg capsule 50 mg PO TID 03/03/24 03/04/24 History
rosuvastatin 20 mg tablet 20 mg PO HS 03/03/24 03/04/24 History
sennosides 8.6 mg tablet (senna) 8.6 mg PO DAILY 03/03/24 03/04/24 History
sertraline 25 mg tablet 25 mg PO HS 03/03/24 03/04/24 History
sulfamethoxazole 800 1 tab PO MOWEFR 03/03/24 03/04/24 History
mg-trimethoprim 160 mg tablet
Triad Hydrophilic Wound Gel 1 applic topical BID buttock 03/04/24 03/04/24 History
Triad Hydrophilic Wound Gel 1 applic topical DAILYPRN PRN 03/04/24 03/04/24 History
buttocks
cefdinir 300 mg capsule 300 mg PO BID 03/04/24 03/04/24 History
Review of Systems
-
All other systems: Negative unless noted
Physical Exam
Vital Signs
Temp Pulse Resp BP Pulse Ox
97.9 F 100 17 86/57 100
03/04/24 19:30 03/04/24 18:37 03/04/24 19:30 03/04/24 18:37 03/04/24 19:30
Lab Results
03/04/24 12:03
03/04/24 12:03
Troponin I 0.031 ng/ml 03/04/24 15:11
Lcg-M-Jwzvrbahevu Pept 1060 pg/ml 03/04/24 12:03
Physical Exam
General: Well Developed, Well Nourished and No Apparent Distress
HEENT: Normocephalic
Respiratory: Other (Nonlabored respirations with slight crackles at the base)
Cardiac: Other (Tachycardic irregular rhythm no murmurs rubs or gallops distant heart sounds)
GI: Soft
Musculoskeletal: No Clubbing and No Cyanosis
Skin: Warm and Dry
Neuro: Other (Alert and oriented to person)
Psych: Calm
Impression / Plan
-
88-year-old male with history of A-fib paroxysmal not on anticoagulation given recurrent epistaxis and fall risk, interstitial lung disease on chronic oxygen at night, AAA 6.4 cm, chronic osteomyelitis, hyperlipidemia, hypertension, rheumatoid
arthritis? Who was brought in for concerns of respiratory distress. We are consulted for A-fib with RVR. However, his heart rates are currently controlled and I am concerned about possible sepsis given his decreased appetite, confusion, and fever.
Paroxysmal A-fib now with RVR
-Allow for some tachycardia in the setting of possible sepsis
-Given hypotension would hold metoprolol and dilt drip
-If heart rates are sustained greater than 120 would then initiate amiodarone
-Discussed anticoagulation with boone Foy and deemed not a good candidate given recurrent epistaxis and recurrent falls
Hypertension
-Hold lisinopril
Heart failure unknown ejection fraction
-Hold Lasix for now update echocardiogram
-Goal-directed medical therapy once results of echocardiogram
Fever possible sepsis
-Workup per primary
Data Reviewed
-
EKG: Tracing Personally Visualized and interpreted (af rvr)
Radiology: Report Reviewed by me
Labs: Labs Reviewed by me
[2024-03-04] MEDS: COLACE 200 MG PO (20:37)
[2024-03-04] MEDS: ZOLOFT 25 MG PO (20:37)
[2024-03-04] MEDS: CELLCEPT 1000 MG PO (20:37)
[2024-03-04] MEDS: CRESTOR 20 MG PO (20:37)
[2024-03-04 23:17] LABS: Troponin I 0.026 ng/ml
[2024-03-05] VITALS (9 sets, daily range): BP systolic 94–116; BP diastolic 54–72; PULSE 113–115; O2SAT 99; BMI 29.5
--- NOTE | 2024-03-05 01:35 | PTCARENOTE ---
Pt. remains in A-fib, rate 80's up to 120's (nonsustained); SBP 90's-102 so far this shift (Cardizem remains off, hospitalist and cardiology aware). Pt. has no complaints of chest pain or SOB, pulse ox on 2L O2 95%. Voided at beginning of shift
and has been mostly sleeping (will collect UA when able). Afebrile.
[2024-03-05 04:08] LABS: % Basophils 0.1 % (0-2); % Eosinophils 0.4 % (0-6); % Immature Granulocytes 0.4 % (0-0.5); % Monocytes 7.1 % (1.7-9.3); Absolute Monocytes 0.6 10^3/uL (0.1-0.6); Absolute Neutrophils 6.4 10^3/uL (1.4-6.5); Hematocrit 31.8 % (39.0-52.0); Hemoglobin 10.1 g/dL (13.0-18.0); Mean Corp Hgb Conc. 31.8 g/dL (33.0-37.0); Mean Corpuscular Hgb 30.9 pg (27.0-31.0); Mean Corpuscular Volume 97.2 fL (80.0-94.0); Mean Platelet Volume 9.5 fL (7.4-10.4); Nucleated Red Blood Cells % 0 % (-); Platelet Count 196 10^3/uL (130-400); Red Blood Cell Count 3.27 10^6/uL (4.70-6.10); Red Cell Dist. Width 16.2 % (11.5-14.5); White Blood Cell Count 7.9 10^3/uL (4.8-10.8)
[2024-03-05 04:22] LABS: Urine Albumin Trace (Neg - Trace); Urine Bilirubin Negative (Negative); Urine Character Clear (Clear); Urine Color Yellow; Urine Glucose Negative (Negative); Urine Ketone Negative (Negative); Urine Leukocyte 2+ (Negative); Urine Nitrite Positive (Negative); Urine Occult Blood 2+ (Negative); Urine Specific Gravity 1.015 (<1.030); Urine Urobilinogen Negative (Neg - 1+)
[2024-03-05 04:31] LABS: Blood Urea Nitrogen 26 mg/dl (9-20); Calcium 8.6 mg/dl (8.4-10.2); Carbon Dioxide 24 mmol/L (22-30); Chloride 105 mmol/L (98-107); Estimated Creatinine Clearance 41 ml/min; Glucose 117 mg/dl (70-99); Potassium 4.1 mmol/L (3.5-5.1); Sodium 137 mmol/L (135-145)
[2024-03-05 04:32] LABS: Troponin I 0.028 ng/ml
[2024-03-05] MEDS: SYNTHROID 100 MCG PO (06:23)
[2024-03-05 07:03] LABS: Urine Amorphous Seen; Urine Bacteria Many (Negative); Urine Mucus Moderate; Urine Squamous Cell >30 /LPF (Few); Urine White Cell >100 /HPF (0-5)
[2024-03-05 07:03] LABS: Glucose - Point of Care 134 mg/dl (70-99)
--- NOTE | 2024-03-05 07:41 | W.PN.UPDATE ---
Update Note
Progress Note Update
Seen and examined with COMMUNICATION ASSISTANT's. Full consultation to follow. Patient recently seen in our vascular office ([facility]) for initial office visit. He has known about this aneurysm and from what he says was initially scheduled to be fixed in [place] where
he lived prior. The surgeon had planned on fixing it, but at that time he was admitted for repair, he was noted to have some spinal or vertebral fractures which ended up getting repaired first. Now he followed up here as he moved to this area and
transition care appear. He underwent CT scan with hydration as ordered. Following that he 'crashed.' Slept heavily over the next day or so. He denies any pain or shortness of breath or chest pain or other symptoms. However due to his lethargy,
he was referred to the hospital. He is being evaluated for CHF.
Specifically he denies any abdominal pain or back pain. He feels good right now.
On exam/she is in no acute distress. He is awake and alert. Breathing is unlabored. Abdomen is soft, nondistended, nontender. No tenderness to deep palpation. Lower extremity with 2+ femoral pulses palpable bilaterally. Right side 2+ DP and PT
palpable. Left side 2+ PT palpable. Feet are both warm and pink and well-perfused.
CT scan dated 03/03/2024 reviewed. He has a saccular infrarenal abdominal aortic aneurysm with saccular protrusion posteriorly. Rather irregular morphology. Maximal transverse dimension is about 6.1 or 6.2 cm to my measurement. There are some
peripheral calcifications that can be seen in the outer posterior wall. Suggests chronicity here.
Plan/ Saccular greater than 6 cm infrarenal abdominal aortic aneurysm. Asymptomatic. Given the morphology of this aneurysm with posterior saccular outpouching and irregular sac shape, would recommend repair relatively soon. He is asymptomatic
and, and no evidence of rupture, therefore no indication for immediate repair. However, we will move up his office follow-up such that he follows up next week in the office to discuss and schedule elective repair.
--- NOTE | 2024-03-05 07:52 | CON.VAS ---
Consultation
Consultation Request
Date/Time Consultation Performed: 03/05/24 0800
Requesting Provider: Hospitalist
Performing Provider: Sara Bhatti, SALES CLERK-C for Juanito Contreras MD
Reason for Consultation: Abdominal aortic aneurysm
Medical History
-
Chief Complaint: Shortness of breath/febrile
History of Present Illness:
This is an 88-year-old male patient with significant past medical history for atrial fibrillation, heart failure, COPD, GERD, hypertension, hypothyroidism, diabetes, abdominal aortic aneurysm, hyperlipidemia, and interstitial lung disease who was
brought in by senior care for reports of confusion and shortness of breath. Currently patient offers no complaints, and feels he is at his baseline health. Patient has a known abdominal aortic aneurysm prompting vascular surgical consultation.
Patient was recently seen in our vascular office (dr. Berumen) for initial office visit. He has known about this aneurysm and from what he says was initially scheduled to be fixed in [place] where he lived prior. The surgeon had planned on fixing
it, but at that time he was admitted for repair, he was noted to have some spinal or vertebral fractures which ended up getting repaired first. Following his spinal surgery he moved to our surrounding area and began transitioning care with his
first initial evaluation in January with our vascular surgery office. He underwent CT scan with hydration as ordered, he reports following CT scan that he 'crashed,' and slept heavily over the next day or so. He then reports that senior care staff
felt he needed additional evaluation and brought him to the emergency department. He denies any pain or shortness of breath or chest pain or other symptoms. However due to his lethargy, he was referred to the hospital. He is being evaluated for
CHF. Specifically he denies any abdominal pain or back pain. He feels good right now.
Past Medical History
Past Medical History: Arrhythmias (A-fib paroxysmal not on anticoagulation given recurrent epistaxis and fall risk), CHF, COPD, GERD, HTN, Hypothyroidism, NIDDM and Other (Aortic abdominal aneurysm, chronic osteomyelitis, hyperlipidemia, rheumatoid
arthritis, interstitial lung disease, hard of hearing)
Past Surgical History: Other (Carotid artery endarterectomy, kyphoplasty)
Social History
Tobacco: Former Smoker
Alcohol: None
Drug: None
Living: Assisted Living
Employment: Retired
Allergies / Home Medications
Allergy/AdvReac Type Severity Reaction Status Date / Time
codeine Allergy Unknown Verified 03/03/24 08:27
�Medication �Instructions �Recorded �Confirmed �Type
alogliptin 25 mg tablet 25 mg PO DAILY Diabetes 03/03/24 03/04/24 History
alprazolam 0.5 mg tablet 0.5 mg PO DAILYPRN PRN anxiety 03/03/24 03/04/24 History
cephalexin 500 mg tablet 500 mg PO TID Infection 03/03/24 03/04/24 History
docusate sodium 100 mg tablet 200 mg PO BID Constipation 03/03/24 03/04/24 History
furosemide 40 mg tablet 40 mg PO DAILY Fluid 03/03/24 03/04/24 History
Retention/Swelling
glucosamine SCl-B7-Bacxvkezz 1 tab PO DAILY Supplement 03/03/24 03/04/24 History
rigoberto 1,500 mg-400 unit-100 mg
tablet (Osteo Bi-Flex (5-Loxin))
levothyroxine 100 mcg capsule 100 mcg PO DAILY Thyroid 03/03/24 03/04/24 History
lisinopril 2.5 mg tablet 2.5 mg PO DAILY Blood Pressure 03/03/24 03/04/24 History
metoprolol succinate 25 mg 25 mg PO DAILY Heart 03/03/24 03/04/24 History
tablet,extended release 24 hr Disease/Condition
nijjwgqm-oht-fqdyo 200 mcg-lycop 1 tab PO DAILY Supplement 03/03/24 03/04/24 History
175 mcg-lutei 250 mcg-herb 178
tablet (Del Multivitamin For Men)
mycophenolate mofetil 500 mg tablet 1,000 mg PO BID IMMUNOSUPRESSANT 03/03/24 03/04/24 History
nitroglycerin 0.4 mg sublingual 0.4 mg sublingual Q5M PRN angina 03/03/24 03/04/24 History
tablet
prednisone 20 mg tablet 20 mg PO DAILY Anti-Inflammatory 03/03/24 03/04/24 History
pregabalin 50 mg capsule 50 mg PO TID Neurological Condition 03/03/24 03/04/24 History
rosuvastatin 20 mg tablet 20 mg PO HS High Cholesterol 03/03/24 03/04/24 History
sennosides 8.6 mg tablet (senna) 8.6 mg PO DAILY Constipation 03/03/24 03/04/24 History
sertraline 25 mg tablet 25 mg PO HS Depression 03/03/24 03/04/24 History
sulfamethoxazole 800 1 tab PO MOWEFR Infection 03/03/24 03/04/24 History
mg-trimethoprim 160 mg tablet
Triad Hydrophilic Wound Gel 1 applic topical BID buttock 03/04/24 03/04/24 History
Triad Hydrophilic Wound Gel 1 applic topical DAILYPRN PRN 03/04/24 03/04/24 History
buttocks
cefdinir 300 mg capsule 300 mg PO BID Infection 03/04/24 03/04/24 History
Review of Systems
-
History Source: Patient
Constitutional: Reports No Symptoms
EENT: Reports No Symptoms
Respiratory: Reports No Symptoms
Cardiac: Reports No Symptoms
Abdomen/GI: Reports No Symptoms
: Reports No Symptoms
Musculoskeletal: Reports No Symptoms
Skin: Reports No Symptoms
Neurological: Reports No Symptoms
Physical Exam
Vital Signs
Temp Pulse Resp BP Pulse Ox
98.8 F 95 20 94/68 97
03/05/24 06:57 03/05/24 03:21 03/05/24 06:57 03/05/24 03:21 03/05/24 06:57
Lab Results
03/05/24 03:41
03/05/24 03:41
Troponin I 0.028 ng/ml 03/05/24 03:41
Ylk-A-Iycoulbwlsa Pept 1060 pg/ml 03/04/24 12:03
Physical Exam
General: No Apparent Distress and Comfortable
HEENT: Normocephalic, Anicteric, Atraumatic and Other (Hard of hearing)
Respiratory: Non Labored Respirations (On supplemental oxygen via nasal cannula)
Cardiac: Negative JVD
GI: Soft, Non Tender and Non Distended
Musculoskeletal: No Edema
Skin: Warm and Dry
Neuro: AO x 3
Pulses: Bilateral Femoral: +2, Bilateral Dorsalis Pedis: +2 and Left Posterior Tibial: +2
Assessment / Plan
-
Assessment: 88-year-old male admitted for acute hypoxic respiratory insufficiency and atrial fibrillation, who has known history of abdominal aortic aneurysm that was being worked up in the outpatient setting by vascular surgeon Dr. Zachariah Berumen III
Plan:
Outpatient CT scan dated 03/03/[address] Juanito Contreras. He has a saccular infrarenal abdominal aortic aneurysm with saccular protrusion posteriorly and irregular morphology. Maximal transverse dimension is about 6.1 or 6.2 cm.
Given the morphology of this aneurysm with posterior saccular outpouching and irregular sac shape, would recommend repair relatively soon. However, he is asymptomatic and, and no evidence of rupture, therefore no indication for immediate repair.
He was scheduled for follow-up in the outpatient setting on 03/17/[address] Berumen; we will move up his office follow-up such that he follows up next week in the office to discuss and schedule elective repair.
Patient also had follow-up orders to obtain carotid ultrasound and arterial duplex with [facility], we will obtain these studies in the inpatient setting so that he has a complete workup for his follow-up appointment that has been moved up to next
week.
Follow-up appointment left in discharge instructions
Please call with questions or concerns
I performed this shared service with the attending. I evaluated the patient [id number] and have entered clinical documentation as shown in the encounter note. I performed the following component(s): history and physical exam. Note that medical
decision making is not final until attested by vascular attending.
Data Reviewed
-
CT Scan: Report Reviewed by me, Discussed with Physician and Discussed with Patient
Labs: Labs Reviewed by me and Discussed with Physician
[2024-03-05] MEDS: NOVOLOG FLEXPEN-LOW RESISTANCE SC (08:41)
[2024-03-05] MEDS: DELTASONE 20 MG PO (08:45)
[2024-03-05] MEDS: COLACE 200 MG PO ×2 (08:45→20:16)
[2024-03-05] MEDS: TOPROL XL 25 MG PO ×2 (08:46→20:16)
[2024-03-05] MEDS: ZESTRIL 2.5 MG PO (08:46)
[2024-03-05] MEDS: LYRICA 50 MG PO ×3 (08:47→22:30)
[2024-03-05] MEDS: THERAGRAN 1 TABLET PO (08:47)
[2024-03-05] MEDS: CELLCEPT 1000 MG PO ×2 (08:47→20:16)
[2024-03-05] MEDS: SENOKOT 8.6 MG PO (08:47)
--- NOTE | 2024-03-05 08:49 | W.PN.CD ---
Today's Communication / Plan
-
Increase metoprolol to 25 mg bid
Plan GAYATHRI DCCV tomorrow
Impression / Plan
-
88-year-old male with history of paroxysmal AF, interstitial lung disease on chronic oxygen at night, AAA 6.4 cm, chronic osteomyelitis, hyperlipidemia, hypertension, rheumatoid arthritis? Who was brought in for concerns of respiratory distress.
We are consulted for A-fib with RVR. His HRs are better controlled now and he is less confused. We discussed AC and he is willing to take it.
Paroxysmal A-fib controlled
-Increase metop to 25 mg XL bid
- start Eliquis 5 mg bid
- GAYATHRI DCCV likely tomorrow
Hypertension
-Hold lisinopril while BP is low
Heart failure unknown ejection fraction
-GDMT when echo is done
- would recommend dose of IV lasix today
Fever possible sepsis
-Workup per primary
Physical Exam
Vital Signs/Labs
Vital Signs
Temp Pulse Resp BP Pulse Ox
98.8 F 107 20 95/70 97
03/05/24 06:57 03/05/24 08:46 03/05/24 06:57 03/05/24 08:46 03/05/24 06:57
03/04/24 03/05/24 03/06/24
06:59 06:59 06:59
Actual Weight 199 lb 4.766 oz
03/05/24 03:41
03/05/24 03:41
PT 15.3 Sec (11.4-14.6) H 03/04/24 17:08
INR 1.23 03/04/24 17:08
03/04/24
12:03
Pdb-T-Xsxewqyjfeq Pept 1060
LAB Results
03/04/24 03/04/24 03/04/24
12:03 15:11 22:44
Troponin I 0.037 H* 0.031 0.026
03/05/24
03:41
Troponin I 0.028
Physical Exam
Constitutional: No acute distress
EENT: Anicteric
Cardiovascular: Rhythm/rate is irregular
Respiratory: Respiratory effort normal and Lungs clear to auscul.
GI: Soft
Neuro/Psych: AO x 3
Data Reviewed
-
Date of Service: March 05, 2024
EKG: Tracing Personally Visualized and interpreted (af)
Labs: Labs Reviewed by me
--- NOTE | 2024-03-05 09:39 | CM ---
Reviewed chart. Met with Mr. Enriquez to review discharge plans. He states prior to admission he resides with his spouse in a one story home with five steps to enter. He states prior to admission he ambulates with a rolling walker. He states he has a
rolling walker and single point cane at home. He states he does not have any VNA services in the home. He states he has a prescription plan and uses [facility]. Medical work-up in progress. The discharge plan is to return home with his spouse
and VNA Services if indicated.
[2024-03-05] MEDS: LASIX 20 MG IV (10:13)
--- NOTE | 2024-03-05 10:43 | CM ---
Reviewed chart. Met with Mr. Enriquez and his son to review discharge plans. His son states prior to admission he resides at the [facility]. He has been there since December. He states prior to admission he ambulates with a walker.
Sometimes he can ambulate independently. He states he has a walker, single point cane and scooter at home. He states he has a prescription plan with . Will need to see his current fumctional level to see if he will have any skilled care
needs. Medical work-up in progress. The discharge plan is to return to the [facility] when medically stable.
[2024-03-05 12:03] LABS: Glucose - Point of Care 168 mg/dl (70-99)
[2024-03-05] MEDS: NOVOLOG FLEXPEN-LOW RESISTANCE 1 UNITS SC (12:33)
[2024-03-05] MEDS: ROCEPHIN 1000 MG IV (14:19)
[2024-03-05] MEDS: STERILE WATER FOR INJECTION 10 ML IV ×2 (14:19→18:29)
--- NOTE | 2024-03-05 15:12 | W.PN.HOSP.TC ---
Addendum entered and electronically signed by Pancho Lawrence MD 03/05/24 16:27:
I saw and evaluated the patient. I reviewed the resident�s note and agree with findings and plan as documented in the resident�s note.
Patient heart rate better controlled. Cardiology planning for possible DCCV. Started on Eliquis today.
Continue monitoring on telemetry
Currently on oral metoprolol
Patient hypoxia much improved with improvement of A-fib.
Got IV Lasix to be given the morning, follow weight and creatinine
Follow-up echocardiogram report
Suspected ureteric infection, UA showing significant pyuria bacteria
patient was borderline febrile in ER
Patient already was on antibiotic before coming to hospital
We will try to get records from assisted regarding any urine culture collected in assisted
Provide 3 dose of Rocephin for now.
Original Note:
Today's Communication/Plan
-
Follow cardiology recommendations, echocardiogram, start patient on Eliquis in preparation for GAYATHRI
Assessment / Plan
Assessment / Plan
Impression:
88-year-old male with history of paroxysmal AF, interstitial lung disease on chronic oxygen at night, AAA 6.6 cm, chronic osteomyelitis, hyperlipidemia, hypertension, rheumatoid arthritis? Who was brought in for concerns of respiratory distress
Plan:
1. Acute hypoxic resp insuff
-Chest x-ray showing some chronic changes of known interstitial lung disease
-CT abdomen pelvis lower lung section showing some peripheral pulmonary scarring
-Patient euvolemic on exam but likely pulmonary congestion exacerbated by his A-fib with RVR, likely contributing to hypoxia
-Treat underlying causes, wean off oxygen as possible
2. A-fib with RVR
-Presumed paroxysmal in nature
-Patient not been on anticoagulation due to recurrent epistaxis.
-[id number] score 8
-Conversation with cardiology and patient, it was decided to place the patient on Eliquis to 5 mg twice daily
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
-Cardizem drip was discontinued, per recommendation by cardiology
-Cardiology following patient
-GAYATHRI planned for tomorrow
-Cardioversion tentatively planned, after atrial appendical thrombus has been ruled out, patient has not been on anticoagulation before today
3. Heart failure with unknown variety
-Baseline weight of 205 to 210 pound per son
-No significant lower extremity edema. proBNP marginally elevated to 1060
-Patient on Lasix 40 g daily at home
-Patient was given 20 mg IV Lasix given today once per cardiology recommendation
-Follow-up weight and creatinine
-Follow-up echocardiogram
4. Fever of unknown origin
-Temperature 99.3 today
-Patient's urine had greater than 100 leukocytes, as well as positive for leukocyte esterase and nitrites
-Patient has no urinary symptoms at this time
-Patient was empirically started on 1000 mg ceftriaxone IV for UTI
-No leukocytosis.
-COVID test pending
N.p.o.
DVT: Lovenox 40 mg subcu
DNR/DNI
Anticipated Discharge: > 48 hours
Subjective/Interval History
-
Date of Service: March 05, 2024
Objective Data
-
Labs:
Laboratory Results
03/05/24
03:41
WBC 7.9
Hgb 10.1 L
Hct 31.8 L
Plt Count 196
Sodium 137
Potassium 4.1
Chloride 105
Carbon Dioxide 24
BUN 26 H
Creatinine 1.3
Glucose 117 H
Calcium 8.6
Vital Signs:
Vital Signs
Temp Pulse Resp BP Pulse Ox
99.3 F 83 20 101/54 93
03/05/24 11:49 03/05/24 11:00 03/05/24 11:49 03/05/24 09:21 03/05/24 11:49
I&O
03/04/24 03/05/24 03/06/24
06:59 06:59 06:59
Intake Total 245 / 245
Output Total 650 / 650
Balance -405 / -405
[2024-03-05 16:56] LABS: Glucose - Point of Care 229 mg/dl (70-99)
[2024-03-05 17:08] LABS: COVID-19 Antigen Negative (Negative)
[2024-03-05] MEDS: MAXIPIME 1000 MG IV (18:29)
[2024-03-05] MEDS: NOVOLOG FLEXPEN-LOW RESISTANCE 2 UNITS SC (18:40)
[2024-03-05 18:41] LABS: Glucose - Point of Care 220 mg/dl (70-99)
[2024-03-05] MEDS: ELIQUIS 5 MG PO (20:15)
[2024-03-05 22:13] LABS: Glucose - Point of Care 288 mg/dl (70-99)
[2024-03-05] MEDS: ZOLOFT 25 MG PO (22:36)
[2024-03-05] MEDS: CRESTOR 20 MG PO (22:36)
[2024-03-05] MEDS: TYLENOL 650 MG PO (23:17)
[2024-03-06] VITALS (7 sets, daily range): BP systolic 107–127; BP diastolic 56–73; BMI 29.7
[2024-03-06] MEDS: MAXIPIME 1000 MG IV (02:55)
[2024-03-06] MEDS: STERILE WATER FOR INJECTION 10 ML IV (02:56)
[2024-03-06 03:50] LABS: Blood Urea Nitrogen 37 mg/dl (9-20); Calcium 8.5 mg/dl (8.4-10.2); Carbon Dioxide 26 mmol/L (22-30); Chloride 102 mmol/L (98-107); Estimated Creatinine Clearance 44 ml/min; Glucose 168 mg/dl (70-99); Potassium 3.9 mmol/L (3.5-5.1); Sodium 134 mmol/L (135-145); eGFR 58.89
--- NOTE | 2024-03-06 05:06 | PTCARENOTE ---
Received patient at change of shift. VSS. NSR/Sinus Arrythmia on monitor. Patient remains NPO since midnight for the chance that patient still requires GAYATHRI/Cardioversion as planned in AM. Patient ambulating with x1 assist and a rolling walker to
bathroom. Patient instructed to ring call [facility] for assistance and verbalizes understanding. Plan of care discussed with patient. Call [facility] within reach.
[2024-03-06 06:52] LABS: Glucose - Point of Care 140 mg/dl (70-99)
[2024-03-06] MEDS: SYNTHROID 100 MCG PO (06:54)
[2024-03-06] MEDS: NOVOLOG FLEXPEN-LOW RESISTANCE SC (06:54)
--- NOTE | 2024-03-06 08:02 | W.PN.CD ---
Addendum entered and electronically signed by Geoff Haile MD 03/06/24 08:53:
Discussed with son we will have him NPO after midnight and proceed with coronary angiography tomorrow.
Original Note:
Today's Communication / Plan
-
Pricing of SGLT2i and Entresto
Resume home lasix 40 mg
DC likely today, he has scheduled f/u with Dr Marks next week
Likely outpt stress test for ischemic eval given EF 35-40%
Cont Metop XL 25 bid
Impression / Plan
-
88-year-old male with history of paroxysmal AF, interstitial lung disease on chronic oxygen at night, AAA 6.4 cm, chronic osteomyelitis, hyperlipidemia, hypertension, rheumatoid arthritis? Who was brought in for concerns of respiratory distress.
We are consulted for A-fib with RVR. His HRs are better controlled now and he is less confused. We discussed AC and he is willing to take it.
Paroxysmal A-fib controlled
-Cont Eliquis 25 mg bid
- spont CV to SR
- Cont metop 25 XL
Hypertension
-Hold lisinopril until Entresto and SGLT2i are priced
Chronic HFrEF
-pricing of SGLT2i and Entresto
- on Metoprolol
- holding off on MRA for now
- resume lasix 40 mg daily
Fever possible sepsis
-Workup per primary
Physical Exam
Vital Signs/Labs
Vital Signs
Temp Pulse Resp BP Pulse Ox
98.8 F 63 20 116/73 97
03/06/24 07:31 03/06/24 07:33 03/06/24 07:31 03/06/24 07:33 03/06/24 07:31
03/05/24 03/06/24 03/07/24
06:59 06:59 06:59
Actual Weight 199 lb 4.766 oz
PT 15.3 Sec (11.4-14.6) H 03/04/24 17:08
INR 1.23 03/04/24 17:08
03/04/24
12:03
Lbu-M-Mauwnoiihhc Pept 1060
LAB Results
03/04/24 03/04/24 03/04/24
12:03 15:11 22:44
Troponin I 0.037 H* 0.031 0.026
03/05/24
03:41
Troponin I 0.028
Physical Exam
Constitutional: No acute distress and Comfortable
EENT: Anicteric
Cardiovascular: Rhythm & rate is regular and Pedal edema is absent
Respiratory: Respiratory effort normal and Lungs clear to auscul.
GI: Soft
Neuro/Psych: AO x 3
Data Reviewed
-
Date of Service: March 06, 2024
EKG: Tracing Personally Visualized and interpreted (sr)
Echo: Report Reviewed by me
Labs: Labs Reviewed by me
[2024-03-06] MEDS: THERAGRAN 1 TABLET PO (08:25)
[2024-03-06] MEDS: ZESTRIL 2.5 MG PO (08:25)
[2024-03-06] MEDS: CELLCEPT 1000 MG PO ×2 (08:25→20:47)
[2024-03-06] MEDS: LASIX 40 MG PO (08:25)
[2024-03-06] MEDS: DELTASONE 20 MG PO (08:25)
[2024-03-06] MEDS: TOPROL XL 25 MG PO ×2 (08:25→20:48)
[2024-03-06] MEDS: ELIQUIS 5 MG PO ×2 (08:25→20:47)
[2024-03-06] MEDS: LYRICA 50 MG PO ×3 (08:25→22:38)
[2024-03-06] MEDS: SENOKOT 8.6 MG PO (08:25)
[2024-03-06] MEDS: COLACE 200 MG PO ×2 (08:25→20:47)
--- NOTE | 2024-03-06 08:42 | CM ---
Addendum entered by Alvina Adkins 03/06/24 09:43:
Met with Mr. Enriquez and his son to review discharge plans. Reviewed co-pays for the medications and he is agreeable to the co-pay. Telephone call to the [facility] to review returning to them. Left message. Son states he is current with
[facility] and is agreeable to continuing with their services. Telephone call to [facility] to make the referral. Sent the referral. Medical work-up in progress. The discharge plan is to return to the [facility]
with [facility] when medically stable.
Original Note:
Reviewed chart. Telephone call to [employer], ([phone]) to check on co-pays for medications. Eliquis 2.5 mg po bid has a $38.00 co-pay for 90 days. Entresto 24/26 mcg bid has a co-pay of $38.00 for a 90 day supply,Jardiance 10
mg po daily has a co-pay of $38.00 for a 90 day supply and Farxiga 10 mg po daily co-pay is $76.00 for a ninety day supply. He can use the one month free coupon for Eliquis, Entresto, and Jardiance. Placed the coupon in his red discharge folder.
[2024-03-06 09:07] LABS: Glucose - Point of Care 122 mg/dl (70-99)
[2024-03-06 10:27] LABS: % Basophils 0.1 % (0-2); % Eosinophils 0.8 % (0-6); % Immature Granulocytes 0.4 % (0-0.5); % Lymphocytes 10.1 % (20.5-51.1); % Monocytes 7.8 % (1.7-9.3); % Neutrophils 80.8 % (42.2-75.2); Absolute Eosinophils 0.1 10^3/uL (0-0.7); Absolute Lymphocytes 0.9 10^3/uL (1.2-3.4); Absolute Monocytes 0.7 10^3/uL (0.1-0.6); Absolute Neutrophils 7.4 10^3/uL (1.4-6.5); Hematocrit 30.4 % (39.0-52.0); Hemoglobin 9.5 g/dL (13.0-18.0); Mean Corp Hgb Conc. 31.3 g/dL (33.0-37.0); Mean Corpuscular Hgb 30.4 pg (27.0-31.0); Mean Corpuscular Volume 97.1 fL (80.0-94.0); Mean Platelet Volume 9.2 fL (7.4-10.4); Nucleated Red Blood Cells % 0 % (-); Platelet Count 194 10^3/uL (130-400); Red Blood Cell Count 3.13 10^6/uL (4.70-6.10); White Blood Cell Count 9.1 10^3/uL (4.8-10.8)
[2024-03-06] MEDS: STERILE WATER FOR INJECTION IV (10:41)
[2024-03-06] MEDS: MAXIPIME IV (10:41)
[2024-03-06 10:44] LABS: Blood Urea Nitrogen 33 mg/dl (9-20); Calcium 8.7 mg/dl (8.4-10.2); Carbon Dioxide 27 mmol/L (22-30); Chloride 102 mmol/L (98-107); Estimated Creatinine Clearance 44 ml/min; Glucose 161 mg/dl (70-99); Potassium 3.7 mmol/L (3.5-5.1); Sodium 135 mmol/L (135-145); eGFR 58.89
[2024-03-06] MEDS: MAXIPIME 2000 MG IV ×2 (11:02→17:18)
--- NOTE | 2024-03-06 11:02 | W.PN.HOSP.TC ---
Addendum entered and electronically signed by Pancho Lawrence MD 03/07/24 08:10:
I saw and evaluated the patient. I reviewed the resident�s note and agree with findings and plan as documented in the resident�s note.
Please see update note from today for further comments.
Original Note:
Today's Communication/Plan
-
Monitor rythm and pressures. NPO after midnight
Assessment / Plan
Assessment / Plan
Impression:
88-year-old male with history of paroxysmal AF, interstitial lung disease on chronic oxygen at night, AAA 6.6 cm, chronic osteomyelitis, hyperlipidemia, hypertension, rheumatoid arthritis? Who was brought in for concerns of respiratory distress
Plan:
1. Acute hypoxic resp insuff
-Chest x-ray showing some chronic changes of known interstitial lung disease
-CT abdomen pelvis lower lung section showing some peripheral pulmonary scarring
-Patient euvolemic on exam but likely pulmonary congestion exacerbated by his A-fib with RVR, likely contributing to hypoxia
-Treat underlying causes, wean off oxygen as possible
-Local magnesia and Afrin no spray were ordered for patient as needed
2. A-fib with RVR
-Presumed paroxysmal in nature
-Patient not been on anticoagulation due to recurrent epistaxis.
-[id number] score 8
-Conversation with cardiology and patient, it was decided to place the patient on Eliquis to 5 mg twice daily
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
-Cardizem drip was discontinued, per recommendation by cardiology
-Cardiology following patient
-Pt autoconverted out of Afib overnight
-Cardiac cath is planned for tomorrow 03/07/24 to evaluate for CAD
-N.p.o. after midnight
-Pt will follow up with cardiology outpatient regarding his heart failure, cath results and anticoagulation
3. HfrEF
-Baseline weight of 205 to 210 pound per son
-No significant lower extremity edema. proBNP marginally elevated to 1060
-Patient on Lasix 40 g daily at home
-Echo resulted with EF of 35-40%
-Follow-up weight and creatinine
-Follow-up cath tomorrow 03/07/24
4. UTI
-Temperature 98.8 today
-Urine culture resulted with pseudomonas
-urine culture results from [facility] was also collected and resulted in pseudomonas
-Patient's urine had greater than 100 leukocytes, as well as positive for leukocyte esterase and nitrites
-Patient has no urinary symptoms at this time
-Patient was empirically started on 2000 mg ceftriaxone IV q* hours for UTI
-Will consider P.O abx for pseudomonas on discharge
-No leukocytosis.
-COVID test negative
N.p.o.
DVT: Lovenox 40 mg subcu
DNR/DNI
Anticipated Discharge: 24 - 48 hours
Subjective/Interval History
-
Date of Service: March 06, 2024
Pt converted himself into sinus rhythm overnight
Objective Data
-
Labs:
Laboratory Results
03/06/24 03/06/24
03:05 10:15
WBC 9.1
Hgb 9.5 L
Hct 30.4 L
Plt Count 194
Sodium 134 L 135
Potassium 3.9 3.7
Chloride 102 102
Carbon Dioxide 26 27
BUN 37 H 33 H
Creatinine 1.2 1.2
Glucose 168 H 161 H
Calcium 8.5 8.7
Vital Signs:
Vital Signs
Temp Pulse Resp BP Pulse Ox
98.8 F 75 20 116/73 97
03/06/24 07:31 03/06/24 08:25 03/06/24 07:31 03/06/24 08:25 03/06/24 07:31
I&O
03/05/24 03/06/24 03/07/24
06:59 06:59 06:59
Intake Total 245 / 245 240 / 240
Output Total 650 / 650 700 / 700
Balance -405 / -405 -460 / -460
Review of Systems
-
History Source: Patient and Family
Constitutional: Reports No Symptoms
EENT: Reports Bloody Nose
Respiratory: Reports No Symptoms
Cardiac: Reports Orthopnea; Denies Chest Pain, Diaphoresis or Palpitations
Abdomen/GI: Reports No Symptoms; Denies Abdominal Pain, Nausea, Vomiting or Diarrhea
Genitourinary: Reports No Symptoms
Skin: Reports No Symptoms
Neuro: Reports No Symptoms
Physical Exam
-
General: Well Developed, No Apparent Distress and Comfortable
Respiratory: Clear to Auscultation; Negative Wheezes or Rales
Cardiac: Regular Rhythm, S1/S2 and JVD; Negative Irregular Rhythm, Murmur, Tachycardic or Bradycardic
GI: Soft, Nontender, Nondistended and Normal Bowel Sounds
Musculoskeletal: No Edema
Skin: Warm and Dry
Neuro: Awake, Alert, Oriented and AO x 3
Psych: Calm and Intact Judgement/Insight
Data Reviewed
-
Ultrasound: Report Reviewed by me and Discussed with Physician
Labs: Labs Reviewed by me and Discussed with Physician
[2024-03-06 12:51] LABS: Glucose - Point of Care 246 mg/dl (70-99)
[2024-03-06] MEDS: NOVOLOG FLEXPEN-LOW RESISTANCE 2 UNITS SC (12:51)
--- NOTE | 2024-03-06 13:08 | PTCARENOTE ---
Pt AOx3, no complaints of pain or discomfort. VSS, NSR on tele monitor. Blood sugars monitored. Educated on NPO status at midnight for cardiac cath tomorrow. Son at bedside. Call calhoun within reach.
--- NOTE | 2024-03-06 16:00 | W.PN.UPDATE ---
Update Note
Progress Note Update
I saw and evaluated the patient. I reviewed the resident�s note and agree with findings and plan as documented in the resident�s note.
1. Acute hypoxic resp insufficiency - resolved
-Chest x-ray showing some chronic changes of known interstitial lung disease
-CT abdomen pelvis lower lung section showing some peripheral pulmonary scarring in my opinion as well
-No overt volume overload but likely pulmonary congestion with A-fib RVR/heart failure exacerbation contributing to patient hypoxia
2. A-fib with RVR - resolved
-Presumed paroxysmal in nature
-Patient not been on anticoagulation due to recurrent epistaxis.
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
-Patient converted to normal sinus rhythm, was planned to have GAYATHRI/DCCV otherwise.
3. Acute systolic HF
-Baseline weight of 205 to 210 pound per son
-No significant lower extremity edema. proBNP marginally elevated to 1060
-TTE showing EF of 35 to 40%. Cardiology planning to do left heart catheterization tomorrow
4. Pseudomonas UTI
-urine culture growing Pseudomonas, [facility] and was on antibiotic
-Maintain on empiric cefepime until susceptibility cleared
5. AAA
-CT A/p 03/03 showing infrarenal abdominal aortic aneurysm of 6.8 cm continual thrombus.
-Initial test was ordered by Dr. Berumen as patient is known to have AAA and patient has moved locally in the area and needs follow-up with vascular surgeon
-Vascular surgery evaluated and will follow-up expeditely in office next week post discharge
--- NOTE | 2024-03-06 16:19 | PTCARENOTE ---
Assumed care of patient. Report received from [facility]. Agree with previous assessment. Call light in reach. VSS.
[2024-03-06 17:18] LABS: Glucose - Point of Care 250 mg/dl (70-99)
[2024-03-06] MEDS: NOVOLOG FLEXPEN-LOW RESISTANCE 3 UNITS SC (17:18)
[2024-03-06] MEDS: MILK OF MAGNESIA 30 ML PO (17:58)
[2024-03-06] MEDS: AFRIN NASAL SPRAY 1 SPRAYS NASAL (20:48)
[2024-03-06] MEDS: TYLENOL 650 MG PO (21:18)
[2024-03-06 21:29] LABS: Glucose - Point of Care 247 mg/dl (70-99)
[2024-03-06] MEDS: CRESTOR 20 MG PO (22:38)
[2024-03-06] MEDS: ZOLOFT 25 MG PO (22:38)
[2024-03-07] VITALS (18 sets, daily range): BP systolic 85–136; BP diastolic 52–94; PULSE 58; BMI 29.9
[2024-03-07] MEDS: MAXIPIME 2000 MG IV ×3 (02:51→18:01)
[2024-03-07] MEDS: STERILE WATER FOR INJECTION 10 ML IV ×3 (02:53→18:01)
[2024-03-07 03:59] LABS: Blood Urea Nitrogen 36 mg/dl (9-20); Calcium 8.8 mg/dl (8.4-10.2); Carbon Dioxide 25 mmol/L (22-30); Chloride 104 mmol/L (98-107); Estimated Creatinine Clearance 48 ml/min; Glucose 132 mg/dl (70-99); Sodium 138 mmol/L (135-145); eGFR > 60.00
[2024-03-07 05:45] LABS: Glucose - Point of Care 130 mg/dl (70-99)
[2024-03-07] MEDS: SYNTHROID PO ×2 (05:58→09:31)
[2024-03-07] MEDS: NOVOLOG FLEXPEN-LOW RESISTANCE SC (05:58)
--- NOTE | 2024-03-07 06:31 | PTCARENOTE ---
Patient remains NSR on monitor. VSS. Ambulates in room with rolling walker and x1 assist. Rings appropriately. Patient NPO since midnight for cardiac cath in AM. Call calhoun within reach.
[2024-03-07 07:20] LABS: Glucose - Point of Care 141 mg/dl (70-99)
--- NOTE | 2024-03-07 08:21 | PN.CDI ---
CDI
- -
CDI:
Physician Documentation Request
Admit Date: 03/04/24 16:10
Dear Doctor Howard/Dr. Guerrero,
Clinical Indicators:
Patient admitted with acute hypoxic respiratory insufficiency and AF with RVR.
03/04 Cardiology consult,'...Allow for some tachycardia in the setting of possible sepsis'
03/06, PN, 'Pseudomonas UTI -urine culture growing Pseudomonas, patient was diagnosed of Pseudomonas UTI [facility] and was on antibiotic'
Temp on admission:
03/04/24
12:18
Temp 100.4 F H
HR/RR trend on admission:
03/04/24
11:56 03/04/24
12:20 03/04/24
13:00
Pulse 126 121
Resp Rate 25 21 24
03/04/24
14:10 03/04/24
15:00 03/04/24
16:05
Pulse 118 103 115
Resp Rate 30 25 21
03/04/24
17:05
Pulse 111
Resp Rate 23
Please clarify which of the following most accurately describes the status of the patient's infection:
Sepsis, POA
- Systemic manifestations of infection, with 2 or more SIRS criteria which include:
- Fever >100.4 degrees F or hypothermia < 96.8 degrees F
- Leukocytosis - WBC > 12,000 or leukopenia - WBC < 4,000 or > 10% bands
- Tachycardia > 90 beats per minute
- Tachypnea - RR > 20 breaths per minute or PaCO2 , 32mmHg
Source: Merck Manual 2013
Pseudomonas UTI Only, Without Systemic Illness
Other, please specify
Use of terms such as suspected, likely, concern for, or probable (associated with a specific diagnosis that is being evaluated, monitored, or treated as if it exists) are acceptable and can be coded in the inpatient setting, when documented at the
time of discharge.
Thank you,
Kenisha Pickard RN BSN
CDI Specialist
available via tiger text
Please use your independent medical judgment in providing your response.
[2024-03-07 08:41] LABS: % Basophils 0.1 % (0-2); % Eosinophils 0.6 % (0-6); % Immature Granulocytes 0.6 % (0-0.5); % Lymphocytes 15.8 % (20.5-51.1); % Monocytes 10.3 % (1.7-9.3); % Neutrophils 72.6 % (42.2-75.2); Absolute Eosinophils 0.1 10^3/uL (0-0.7); Absolute Immature Granulocytes 0.1 10^3/uL (0-0.05); Absolute Lymphocytes 1.3 10^3/uL (1.2-3.4); Absolute Monocytes 0.8 10^3/uL (0.1-0.6); Hematocrit 29.2 % (39.0-52.0); Hemoglobin 9.3 g/dL (13.0-18.0); Mean Corp Hgb Conc. 31.8 g/dL (33.0-37.0); Mean Corpuscular Hgb 30.2 pg (27.0-31.0); Mean Corpuscular Volume 94.8 fL (80.0-94.0); Mean Platelet Volume 9.1 fL (7.4-10.4); Nucleated Red Blood Cells % 0 % (-); Platelet Count 183 10^3/uL (130-400); Red Blood Cell Count 3.08 10^6/uL (4.70-6.10); Red Cell Dist. Width 15.9 % (11.5-14.5); White Blood Cell Count 8.2 10^3/uL (4.8-10.8)
--- NOTE | 2024-03-07 09:12 | W.PN.HOSP.TC ---
Addendum entered and electronically signed by Pancho Lawrence MD 03/08/24 08:02:
Add on dx:
Sepsis POA - from UTI - improved
Addendum entered and electronically signed by Pancho Lawrence MD 03/07/24 19:13:
I saw and evaluated the patient. I reviewed the resident�s note and agree with findings and plan as documented in the resident�s note.
Pseudomonas UTI -follow-up urine culture susceptibility report. Maintain on cefepime
Acute systolic congestive heart failure -currently off of oxygen. Maintained on Lasix per cardiology. Heart cath showing diffuse CAD, not amenable to bypass and medical management recommended.
Possible discharge tomorrow morning
Original Note:
Today's Communication/Plan
-
Cardiac catheterization
Assessment / Plan
Assessment / Plan
Impression:
88-year-old male with history of paroxysmal AF, interstitial lung disease on chronic oxygen at night, AAA 6.6 cm, chronic osteomyelitis, hyperlipidemia, hypertension, rheumatoid arthritis? Who was brought in for concerns of respiratory distress
Plan:
1. Acute hypoxic resp insuff
-Resolved, likely secondary to A-fib causing fluid backup in the pulmonary circulation
-Chest x-ray showing some chronic changes of known interstitial lung disease
-CT abdomen pelvis lower lung section showing some peripheral pulmonary scarring
-Patient euvolemic on exam
-Treat underlying causes, wean off oxygen as possible
-Milk of magnesia and Afrin no spray were ordered for patient as needed
2. A-fib with RVR
-Presumed paroxysmal in nature
-Patient not been on anticoagulation due to recurrent epistaxis.
-[id number] score 8
-Conversation with cardiology and patient, it was decided to place the patient on Eliquis to 5 mg twice daily
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
-Cardizem drip was discontinued, per recommendation by cardiology
-Cardiology following patient
-Pt autoconverted out of Afib
-Status postcardiac catheterization, results discussed with vascular surgery
-Resume cholesterol-lowering diet
-Pt will follow up with cardiology outpatient regarding his heart failure, cath results and anticoagulation
3. HfrEF
-Baseline weight of 205 to 210 pound per son
-No significant lower extremity edema. proBNP marginally elevated to 1060
-Patient on Lasix 40 g daily at home
-Echo resulted with EF of 35-40%
-Follow-up weight and creatinine
4. Pseudomonas UTI, without systemic illness
-Temperature 98.8 today
-Urine culture resulted with pseudomonas
-urine culture results from [facility] was also collected and resulted in pseudomonas
-Patient's urine had greater than 100 leukocytes, as well as positive for leukocyte esterase and nitrites
-Patient has no urinary symptoms at this time
-Patient was empirically started on 2000 mg ceftriaxone IV q8 hours for UTI
-Will consider P.O abx for pseudomonas on discharge
-No leukocytosis.
-COVID test negative
Cholesterol-lowering diet
DVT: Lovenox 40 mg subcu
DNR/DNI
Anticipated Discharge: Within 24 hours
Subjective/Interval History
-
Date of Service: March 07, 2024
Cardiac cath planned for today, patient n.p.o. after midnight
Objective Data
-
Labs:
Laboratory Results
03/07/24 03/07/24 03/07/24
03:03 07:34 08:28
WBC 8.2
Hgb 9.3 L
Hct 29.2 L
Plt Count 183
Sodium 138 Cancelled
Potassium 4.0 Cancelled
Chloride 104 Cancelled
Carbon Dioxide 25 Cancelled
BUN 36 H Cancelled
Creatinine 1.1 Cancelled
Glucose 132 H Cancelled
Calcium 8.8 Cancelled
Vital Signs:
Vital Signs
Temp Pulse Resp BP Pulse Ox
98.8 F 57 18 116/74 94
03/07/24 07:30 03/07/24 08:00 03/07/24 07:30 03/07/24 07:11 03/07/24 07:30
I&O
03/06/24 03/07/24 03/08/24
06:59 06:59 06:59
Intake Total 240 / 240
Output Total 700 / 700 1450 / 1450
Balance -460 / -460 -1450 / -1450
Review of Systems
-
History Source: Patient
Constitutional: Reports No Symptoms
Respiratory: Reports No Symptoms
Cardiac: Reports No Symptoms
Abdomen/GI: Reports No Symptoms
Physical Exam
-
General: Well Developed, Well Nourished, No Apparent Distress and Comfortable
Respiratory: Clear to Auscultation
Cardiac: Regular Rhythm, S1/S2 and JVD; Negative Irregular Rhythm or Murmur
GI: Soft, Nontender, Nondistended and Normal Bowel Sounds
Musculoskeletal: No Edema
Skin: Warm and Dry
Neuro: Awake, Alert, Oriented and AO x 3
Psych: Calm and Intact Judgement/Insight
Data Reviewed
-
Labs: Labs Reviewed by me and Discussed with Physician
[2024-03-07] MEDS: ELIQUIS PO (09:27)
[2024-03-07] MEDS: AFRIN NASAL SPRAY 1 SPRAYS NASAL ×2 (09:27→20:01)
[2024-03-07] MEDS: LOW STRENGTH ASPIRIN 324 MG PO (09:28)
[2024-03-07] MEDS: COLACE 200 MG PO ×2 (09:28→20:00)
[2024-03-07] MEDS: CELLCEPT 1000 MG PO ×2 (09:28→20:00)
[2024-03-07] MEDS: SENOKOT 8.6 MG PO (09:30)
[2024-03-07] MEDS: LYRICA 50 MG PO ×3 (09:30→21:42)
[2024-03-07] MEDS: LASIX 40 MG PO (09:30)
[2024-03-07] MEDS: DELTASONE 20 MG PO (09:30)
[2024-03-07] MEDS: THERAGRAN 1 TABLET PO (09:30)
[2024-03-07] MEDS: TOPROL XL 25 MG PO ×2 (09:30→20:00)
[2024-03-07] MEDS: ZESTRIL 2.5 MG PO (09:30)
[2024-03-07] MEDS: FLUSH (NSS) 2 FLUSH IV ×2 (09:31→10:59)
--- NOTE | 2024-03-07 10:56 | CM ---
Addendum entered by Alvina Adkins 03/07/24 14:41:
Will also need to fax the new scripts to the [facility] -
Original Note:
Reviewed chart. Telephone call to [facility] to review the possibility of returning over the weekend. Spoke with Rizwan who is requesting physical therapy note. Faxed physical therapy notes to them. He will need new
scripts for any new medications to go with him. His son will provide transportation back to [facility]. The nurses will need to call report to ([phone]) and the fax number for discharge instructions is
([phone]). Medical work-up in progress. The discharge plan is to return to [facility] with resumption of [facility] when medically stable.
--- NOTE | 2024-03-07 11:19 | PTCARENOTE ---
Received patient this morning resting in bed. Procedure to be done this afternoon. Tt rosalio Tejada MAIL MACHINE OPERATOR and patient permitted a light breakfast, meds given with sip of water, eliquis held as ordered. NPO now, son at the bedside.
[2024-03-07 13:16] LABS: Glucose - Point of Care 285 mg/dl (70-99)
[2024-03-07] MEDS: NOVOLOG FLEXPEN-LOW RESISTANCE 3 UNITS SC (13:29)
[2024-03-07] MEDS: SYNTHROID 100 MCG PO (13:53)
--- NOTE | 2024-03-07 15:16 | PTCARENOTE ---
Patient taken to the director labor standards, his son is waiting in the room.
--- NOTE | 2024-03-07 16:09 | ITS.CL.CATH ---
[facility] [facility] - Catheterization
Cardiac Catheterization
Procedure Report:
CARDIAC CATHETERIZATION REPORT
Date of Procedure: 03/07/2024
Referring: Geoff Haile MD
Indication: A-fib/RVR with mildly elevated troponins and moderate left ventricular dysfunction
HEMODYNAMIC DATA
AO: 121/68
LV: 121/15
LEFT VENTRICULOGRAPHY: Anterolateral and inferior hypokinesis with EF 39%
CORONARY ANGIOGRAPHY
Dominance: Right
Left Main: Normal
LAD: 60-70% proximal LAD stenosis spanning the takeoff of the large D1. There is a second area of disease in the mid LAD distal to the takeoff of the second septal cigar packer and shader and spanning the origin of the moderate-sized second diagonal branch
which is totally occluded. This short diseased LAD segment is approximately 60% stenosed and is associated with a bilobar saccular aneurysm. The remainder of the mid and the distal LAD have trivial luminal disease. The occluded second diagonal
branch faintly fills retrograde via left to left collaterals.
Circumflex: The circumflex gives rise to a tiny OM1, a small OM 2, and a large OM 3 before continuing in the AV groove to supply several small posterolateral branches. There is diffuse noncritical disease of the circumflex system.
RCA: There is total proximal occlusion of the RCA. This is a 25 mm length occlusion with bridging collateral filling from a small RV branch reconstituting the mid RCA with sluggish flow to a severely diseased distal RCA territory. There is faint
[id number] filling as well of the PDA and posterolateral branch.
Closure Device: None-the procedure was performed via the right radial artery. The Delvin's test was normal prior to the procedure.
Radiation (mGy): 373
DAP (cm2.Gy): 36.6
Fluoroscopy time: 2.1 minutes
CONCLUSIONS
1: Anterolateral and inferior hypokinesis with EF 39%
2: Severe multivessel CAD as described
3. Recommend medical therapy for CAD. CABG is not a viable option given his age and comorbidities. The RCA disease is untreatable and I have a difficult time believing that PCI of the LAD disease to include treating the segment associated with a
saccular aneurysm would improve his symptoms or longevity.
4. Recommend vascular surgical follow-up as planned for treatment of 6.4 cm AAA
Copy to: Geoff Haile MD, Van John MD, Zachariah Berumen MD
Jamaal Marks MD, [facility], [facility]
--- NOTE | 2024-03-07 16:38 | PTCARENOTE ---
Received patient from the laborer [facility] [employer] after LHC via right radial artery. Reviewed post cath restrictions with the patient and his son. Radial band is dry and intact with strong radial pulse and pulse ox of 93% on the right hand. Monitoring VS as
ordered, call calhoun within reach. Dr. Marks in to speak with the patient's son earlier.
[2024-03-07 17:25] LABS: Glucose - Point of Care 196 mg/dl (70-99)
[2024-03-07] MEDS: NOVOLOG FLEXPEN-LOW RESISTANCE 1 UNITS SC (17:36)
[2024-03-07] MEDS: FLUSH (NSS) 1 FLUSH IV (18:02)
--- NOTE | 2024-03-07 18:33 | PTCARENOTE ---
Patient under the impression he was leaving tonight after cardiac cath without intervention. Spoke with Dr. Lawrence, patient to remain overnight until medical management for cardiac disease determined and plan for antibiotic for UTI determined.
Explained this to the patient and his son.
--- NOTE | 2024-03-07 19:00 | PTCARENOTE ---
report received from previous RN. pt resting in bed, AAOX3. hard of hearing, bilateral hearing aids. pt denies pain. SB/SR on telemetry heart rate 50-60s. pt on room air, sat 93% on room air. lung sounds diminished. active bowel sounds. voiding in
bathroom without difficulty. right radial cath site CDI, pulse easily palpable. pt ambulated with standby assist. pt updated on plan of care. see worklist for full nursing assessment
[2024-03-07 21:30] LABS: Glucose - Point of Care 173 mg/dl (70-99)
[2024-03-07] MEDS: CRESTOR 20 MG PO (21:42)
[2024-03-07] MEDS: TYLENOL 650 MG PO (21:42)
[2024-03-07] MEDS: ZOLOFT 25 MG PO (21:42)
[2024-03-08] MEDS: MAXIPIME 2000 MG IV ×2 (02:41→09:53)
[2024-03-08] MEDS: STERILE WATER FOR INJECTION 10 ML IV ×2 (02:41→09:53)
[2024-03-08 02:52] VITALS: BP 109/50
[2024-03-08 03:11] LABS: Hematocrit 27.2 % (39.0-52.0); Hemoglobin 8.6 g/dL (13.0-18.0); Mean Corp Hgb Conc. 31.6 g/dL (33.0-37.0); Mean Corpuscular Hgb 29.8 pg (27.0-31.0); Mean Corpuscular Volume 94.1 fL (80.0-94.0); Mean Platelet Volume 9.1 fL (7.4-10.4); Platelet Count 210 10^3/uL (130-400); Red Blood Cell Count 2.89 10^6/uL (4.70-6.10); Red Cell Dist. Width 15.9 % (11.5-14.5); White Blood Cell Count 7.6 10^3/uL (4.8-10.8)
[2024-03-08] MEDS: TUMS EX (EXTRA STRENGTH) CHEWABLE 1 TABLET PO (03:26)
[2024-03-08 03:28] LABS: Blood Urea Nitrogen 38 mg/dl (9-20); Calcium 8.2 mg/dl (8.4-10.2); Carbon Dioxide 26 mmol/L (22-30); Chloride 104 mmol/L (98-107); Estimated Creatinine Clearance 48 ml/min; Glucose 197 mg/dl (70-99); Potassium 3.8 mmol/L (3.5-5.1); Sodium 135 mmol/L (135-145); eGFR > 60.00
[2024-03-08 06:00] VITALS: BMI 29.9
[2024-03-08] MEDS: SYNTHROID 100 MCG PO (06:23)
[2024-03-08 07:45] VITALS: BP 127/62
[2024-03-08 08:17] LABS: Glucose - Point of Care 109 mg/dl (70-99)
[2024-03-08] MEDS: NOVOLOG FLEXPEN-LOW RESISTANCE SC (08:17)
--- NOTE | 2024-03-08 08:18 | PTCARENOTE ---
Pt received from outgoing RN, pt aaox4, in bed, no c/o pain, vss, oob with standby assist, NSR, RA. Pt will possibly be dced later this afternoon.
[2024-03-08] MEDS: LYRICA 50 MG PO (09:01)
[2024-03-08] MEDS: ZESTRIL 2.5 MG PO (09:01)
[2024-03-08] MEDS: SENOKOT 8.6 MG PO (09:01)
[2024-03-08] MEDS: LASIX 40 MG PO (09:01)
[2024-03-08] MEDS: TOPROL XL 25 MG PO (09:01)
[2024-03-08] MEDS: DELTASONE 20 MG PO (09:01)
[2024-03-08] MEDS: CELLCEPT 1000 MG PO (09:01)
[2024-03-08] MEDS: COLACE 200 MG PO (09:01)
[2024-03-08] MEDS: AFRIN NASAL SPRAY 2 SPRAYS NASAL (09:02)
[2024-03-08] MEDS: ELIQUIS 5 MG PO (09:02)
[2024-03-08] MEDS: THERAGRAN 1 TABLET PO (09:02)
--- NOTE | 2024-03-08 10:23 | W.PN.CD ---
Addendum entered and electronically signed by Souleymane Lema MD 03/08/24 11:49:
Patient seen and examined in collaboration with [employer]; agree with below.
-Patient with multivessel coronary disease; medical management recommended.
-Continue current cardiac medication regimen.
-Stable for discharge to home today; patient scheduled to follow-up with Cardiology on Sunday.
Original Note:
Today's Communication / Plan
-
Cardiac catheterization yesterday via right radial artery. Site is clean, dry, & intact without hematoma.
Impression / Plan
-
BACKGROUND: 88Mwith history of paroxysmal atrial fibrillation, interstitial lung disease on nocturnal oxygen, AAA 6.4 cm, chronic osteomyelitis, hyperlipidemia, hypertension, & rheumatoid arthritis who was brought in for concerns of respiratory
distress. Cardiology was consulted for atrial fibrillation with rapid ventricular response
Paroxysmal atrial fibrillation
-In sinus, continue metoprolol succinate, this was increased from daily dosing to twice daily dosing this hospitalization
-Oral Anticoagulation: Apixaban 5 mg twice daily, he was off this in the past due to epistaxis
-[id number]: Score at least 6 (Heart failure, HTN, age 75 or more, Diabetes Mellitus, Vascular disease)
CAD
-Cardiac catheterization yesterday demonstrated severe multivessel CAD
-The plan is for medical therapy for his CAD as CABG is not a viable option given his age and comorbidities and the RCA appears untreatable
-Continue beta-eugene, apixaban (for PAF), and rosuvastatin
HFrEF, ischemic cardiomyopathy (LVEF 35-40%), chronic
-Appears euvolemic on exam
-GDMT as tolerated
-ACEI/ARB: Lisinopril 2.5 mg daily
-Beta-eugene: Metoprolol succinate 25 mg twice daily
-MRA: Can consider in the outpatient setting
-SGLT2: Affordable but he has a UTI this admission
-We discussed daily weight and low-sodium diet
Hypertension, BP stable on current medical therapy
Pseudomonas UTI, per primary
Hypothyroidism on levothyroxine
AAA, 6.4 cm, following Dr. Berumen in the outpatient setting
Subjective:
He denies shortness of breath and chest pain.
Physical Exam
Vital Signs/Labs
Vital Signs
Temp Pulse Resp BP Pulse Ox
98 F 62 18 127/62 97
03/08/24 07:45 03/08/24 07:45 03/08/24 07:45 03/08/24 07:45 03/08/24 08:01
03/07/24 03/08/24 03/09/24
06:59 06:59 06:59
Actual Weight 91.9 kg 91.9 kg
03/08/24 02:48
03/08/24 02:48
PT 15.3 Sec (11.4-14.6) H 03/04/24 17:08
INR 1.23 03/04/24 17:08
03/04/24
12:03
Fmz-D-Karnhfenqya Pept 1060
Physical Exam
Constitutional: No acute distress and Comfortable
EENT: Anicteric and Moist mucous membranes
Cardiovascular: Rhythm & rate is regular and Pedal edema is absent
Respiratory: Respiratory effort normal and Lungs clear to auscul.
GI: Soft, Distention absent, Flat, Non tender and Normal bowel sounds
Neuro/Psych: AO x 3
Other: Skin (Warm and dry) and Cath Site (Right radial site C/D/I)
Data Reviewed
-
Date of Service: March 08, 2024
Medical Tests (PFT, Pathology etc): Report Reviewed by me (Cardiac catheterization)
Labs: Labs Reviewed by me
Old Records: Reviewed
--- NOTE | 2024-03-08 10:25 | W.PN.HOSP.TC ---
Today's Communication/Plan
-
d/c AL post cardio recommendation for med
Assessment / Plan
Assessment / Plan
1. Acute hypoxic resp insufficiency - resolved
-Chest x-ray showing some chronic changes of known interstitial lung disease
-CT abdomen pelvis lower lung section showing some peripheral pulmonary scarring in my opinion as well
-No overt volume overload but likely pulmonary congestion with A-fib RVR/heart failure exacerbation contributing to patient hypoxia
2. A-fib with RVR - resolved
-Presumed paroxysmal in nature
-Patient not been on anticoagulation due to recurrent epistaxis.
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
-Patient converted to normal sinus rhythm, was planned to have GAYATHRI/DCCV otherwise.
3. Acute systolic HF
Ischemic cardiomyopathy
CAD
-Baseline weight of 205 to 210 pound per son
-No significant lower extremity edema. proBNP marginally elevated to 1060
-TTE showing EF of 35 to 40%.
-LHC showing multivessel CAD not amenable to bypass. medical managment recommended by cardiology
4. Pseudomonas UTI
-urine culture growing Pseudomonas, patient was diagnosed of Pseudomonas UTI in [facility] and was on antibiotic
-susceptibility reviewed, change to Levaquin 2 more days at discharge
5. AAA
-CT A/p 03/03 showing infrarenal abdominal aortic aneurysm of 6.8 cm continual thrombus.
-Initial test was ordered by Dr. Berumen as patient is known to have AAA and patient has moved locally in the area and needs follow-up with vascular surgeon
-Vascular surgery evaluated and will follow-up expeditely in office next week post discharge
Eliquis
Full code
More than 30 minutes spent in discharge including
Final examination of the patient
Summarizing hospital stay
Instructions for continuing care to all relevant caregivers
Preparation of discharge records, prescriptions, and referral forms
Total time spent (in minutes): 40 mins
Anticipated Discharge: Today
Subjective/Interval History
-
Date of Service: March 08, 2024
denies of having any issues overnight
Objective Data
-
Labs:
Laboratory Results
03/08/24
02:48
WBC 7.6
Hgb 8.6 L
Hct 27.2 L
Plt Count 210
Sodium 135
Potassium 3.8
Chloride 104
Carbon Dioxide 26
BUN 38 H
Creatinine 1.1
Glucose 197 H
Calcium 8.2 L
Vital Signs:
Vital Signs
Temp Pulse Resp BP Pulse Ox
98 F 62 18 127/62 97
03/08/24 07:45 03/08/24 07:45 03/08/24 07:45 03/08/24 07:45 03/08/24 08:01
I&O
03/07/24 03/08/24 03/09/24
06:59 06:59 06:59
Intake Total 760 / 760
Output Total 1450 / 1450 1950 / 1950 500 / 500
Balance -1450 / -1450 -1190 / -1190 -500 / -500
Review of Systems
-
Respiratory: Reports No Symptoms
Cardiac: Reports No Symptoms
Abdomen/GI: Reports No Symptoms
Physical Exam
-
General: Well Developed, Well Nourished, No Apparent Distress and Comfortable
Respiratory: Clear to Auscultation
Cardiac: Regular Rhythm, S1/S2 and JVD; Negative Irregular Rhythm or Murmur
GI: Soft, Nontender, Nondistended and Normal Bowel Sounds
Musculoskeletal: No Edema
Skin: Warm and Dry
Neuro: Awake, Alert, Oriented and AO x 3
Psych: Calm and Intact Judgement/Insight
[2024-03-08 11:00] VITALS: BP 132/80
--- NOTE | 2024-03-09 15:03 | W.DCSUMMARY ---
Discharge Summary
Discharge Data
Date of Admission: 03/04/24
Date of Discharge: 03/08/24
-
Pending Results: No
Hospital Course
Discharging Physician : Dr Pancho Lawrence
Disposition : Assisted living
Primary care physician : Dr Van John
Principal Discharge diagnosis :
Acute hypoxic respiratory insufficiency
Multivessel coronary disease
Acute systolic heart failure
Ischemic cardiomyopathy
Pseudomonas urinary tract infection
Large Abdominal aortic aneurysm
Chronic Discharge diagnosis :
Benign prostatic hyperplasia
Anxiety
Hypothyroidism
Essential hypertension
Rheumatoid arthritis on chronic steroid therapy and associated Bactrim prophylactic therapy
Interstitial lung disease/pulmonary fibrosis
Gastroesophageal reflux disease
Hyperlipidemia
Hospital Course :
Patient is an 88-year-old male with above-mentioned past medical history came to ER with new onset of shortness of breath, patient was found to be hypoxic in ER. Patient was also noted to be having tachycardia.
Patient requiring minimal oxygen support through nasal cannula in the ER. Chest x-ray was showing chronic changes with known history of some interstitial lung disease/fibrosis. Patient had ongoing A-fib and was presumed to having mild pulmonary
congestion. Patient was provided few days of IV Lasix for suspected heart failure. An echocardiogram was done which showed patient EF of 35 to 40%. Cardiology after discussion took patient to left heart cath showing multivessel coronary disease
which was not amenable to bypass due to surgical risk. Cardiology recommended medical management of diffuse CAD.
Patient have history of paroxysmal A-fib and was not on blood thinners in the past due to history of severe epistaxis. Due to new findings of CAD/systolic heart failure this was already discussed and patient was discharged on Eliquis for
thromboembolism prevention. Patient was maintained on beta-eugene therapy. GAYATHRI/DCCV was considered although patient converted to sinus rhythm without it.
Patient also was being treated for a pseudomonal UTI in halfway although was on cefdinir therapy. Patient was started on IV cefepime and urine culture grew Pseudomonas based on susceptibility patient was discharged on a finishing course of
levofloxacin.
Patient also had history of AAA, and outpatient CT abdomen pelvis done day before ER visit was showing a large abdominal aortic aneurysm of 6.8 cm size with small thrombus in the aneurysm. Vascular surgery was involved in care who recommended an
expedited follow-up in office postdischarge.
Important imaging findings :
None
Procedure findings :
None
Discharge Plan
-
Patient Disposition: Assisted Living
Discharge Diagnosis/Procedures: CAD, systolic HF, Pseudomonas UTI
Condition: Fair
Diet: Low Cholesterol, Low Sodium and 2 Gram Sodium
Activity: With assistance
Driving Restrictions: As prior to admission
Bathing Restrictions: OK to Shower
Referrals:
[facility] [Other] (Fax number is [phone])
Zachariah Berumen III, MD [Active] - 03/13/24 9:30 am (Vascular follow up)
Jamaal Marks MD [Active] - 03/10/24 11:20 am
Van John MD [Family Provider] - in one week
Prescriptions:
New
Eliquis 5 mg tablet
5 mg PO BID Qty: 60 2RF
levofloxacin 750 mg tablet
750 mg PO DAILY Qty: 4 0RF
Continued
furosemide 40 mg Tablet
40 mg PO DAILY
sennosides [senna] 8.6 mg Tablet
8.6 mg PO DAILY
prednisone 20 mg Tablet
20 mg PO DAILY
sulfamethoxazole-trimethoprim 800-160 mg Tablet
1 tab PO MOWEFR
mycophenolate mofetil 500 mg Tablet
1,000 mg PO BID
alprazolam 0.5 mg Tablet
0.5 mg PO DAILYPRN PRN (Reason: anxiety)
nitroglycerin 0.4 mg Tablet, Sublingual
0.4 mg SUBLINGUAL Q5M PRN (Reason: angina)
sertraline 25 mg Tablet
25 mg PO HS
metoprolol succinate 25 mg Tablet Extended Release 24 Hr
25 mg PO DAILY
lisinopril 2.5 mg Tablet
2.5 mg PO DAILY
docusate sodium 100 mg Tablet
200 mg PO BID
rosuvastatin 20 mg Tablet
20 mg PO HS
pregabalin 50 mg Capsule
50 mg PO TID
levothyroxine 100 mcg Capsule
100 mcg PO DAILY
Del Multivitamin For Men 200-175-250 mcg Tablet
1 tab PO DAILY
[id number]-Rijddthvm serr [Osteo Bi-Flex (5-Loxin)] 1,500-400-100 mg-unit-mg Tablet
1 tab PO DAILY
alogliptin 25 mg Tablet
25 mg PO DAILY
Triad Hydrophilic Wound Gel gel
1 applic topical BID
Triad Hydrophilic Wound Gel gel
1 applic topical DAILYPRN PRN (Reason: buttocks)
Discontinued
cephalexin 500 mg Tablet
500 mg PO TID
cefdinir 300 mg Capsule
300 mg PO BID
Rx Instructions:
for 10 days
Discharge Orders:
Discharge Patient (As Directed); Ordered 03/08/24
Ordered By: Pancho Lawrence
Care Plan Goals
Care Plan Goals:
Problem: Readiness for enhanced knowledge related to diagnosis and treatment plan
Goal: Understand your diagnosis and treatment plan needs, including medications if applicable.
Instructions: Know your diagnosis, underlying causes and treatment plan options, including medications if applicable. Consult with your health care team to learn about your diagnosis and treatment plan, including medications if applicable.
Problem: Readiness for enhanced knowledge related to diagnosis and treatment plan
Goal: Understand your diagnosis and treatment plan needs, including medications if applicable.
Instructions: Know your diagnosis, underlying causes and treatment plan options, including medications if applicable. Consult with your health care team to learn about your diagnosis and treatment plan, including medications if applicable.
Discharge Date and Time
Discharge Date/Time: 03/08/24 12:09
Print Language: LAO
== END 2024-03-08 12:09 | disposition home health service (06) | DRG 286 ==
LOC: IVU 16:10
PROVIDERS: Internal Medicine Cardiovascular Disease; Nurse Practitioner; Physician Assistant; Student in an Organized Health Care Education/Training Program; ADMITTING PHYSICIAN Hospitalist; EMERGENCY PHYSICIAN Emergency Medicine; FAMILY PHYSICIAN Family Medicine; OTHER PHYSICIAN Internal Medicine Cardiovascular Disease
PROC: B215YZZ Fluoroscopy of Left Heart using Other Contrast (ICD-10-PCS; 2024-03-07)
PROC: B211YZZ Fluoroscopy of Multiple Coronary Arteries using Other Contrast (ICD-10-PCS; 2024-03-07)
PROC: 4A023N7 Measurement of Cardiac Sampling and Pressure, Left Heart, Percutaneous Approach (ICD-10-PCS; 2024-03-07)
DX: I11.0 Hypertensive heart disease with heart failure (principal); A41.52 Sepsis due to Pseudomonas; I50.23 Acute on chronic systolic (congestive) heart failure; N39.0 Urinary tract infection, site not specified; I48.0 Paroxysmal atrial fibrillation; E11.9 Type 2 diabetes mellitus without complications; Z66 Do not resuscitate; E78.00 Pure hypercholesterolemia, unspecified; J84.10 Pulmonary fibrosis, unspecified; F17.290 Nicotine dependence, other tobacco product, uncomplicated; I95.2 Hypotension due to drugs; T46.1X5A Adverse effect of calcium-channel blockers, initial encounter; E03.9 Hypothyroidism, unspecified; I25.5 Ischemic cardiomyopathy; I71.43 Infrarenal abdominal aortic aneurysm, without rupture; I25.10 Atherosclerotic heart disease of native coronary artery without angina pectoris; R06.89 Other abnormalities of breathing; R09.02 Hypoxemia; N40.0 Benign prostatic hyperplasia without lower urinary tract symptoms; F41.9 Anxiety disorder, unspecified; K21.9 Gastro-esophageal reflux disease without esophagitis; M06.9 Rheumatoid arthritis, unspecified; Z79.899 Other long term (current) drug therapy; Z99.81 Dependence on supplemental oxygen; Z86.73 Personal history of transient ischemic attack (TIA), and cerebral infarction without residual deficits; Z79.890 Hormone replacement therapy; Z79.52 Long term (current) use of systemic steroids
CPT/HCPCS: 71046; 74174; 80048; 80053; 81003; 81015; 82962; 83880; 84484; 85025; 85027; 85610; 87040; 87070; 87077; 87086; 87186; 87811; 93005; 93306; 93458; 93880; 93922; 93925; 96361; 96365; 96366; 96374; 96375; 97116; 97161; 97166; 99291; C1894; Q9967

== ENCOUNTER 2024-04-19 18:14 | Inpatient (IN) | payer MEDICARE, OTHER, SELFPAY ==
[2024-04-19 15:27] VITALS: BP 128/70
[2024-04-19 15:47] LABS: Urine Albumin Negative (Neg - Trace); Urine Bilirubin Negative (Negative); Urine Character Clear (Clear); Urine Color Straw; Urine Glucose Negative (Negative); Urine Ketone Negative (Negative); Urine Leukocyte 1+ (Negative); Urine Nitrite Negative (Negative); Urine Occult Blood Negative (Negative); Urine Specific Gravity 1.015 (<1.030); Urine Urobilinogen Negative (Neg - 1+)
[2024-04-19 15:56] LABS: Urine Bacteria Few (Negative); Urine Red Blood Cell 0-2 /HPF (0-2); Urine White Cell 21-25 /HPF (0-5)
[2024-04-19 15:57] LABS: Urine Mucus Moderate
[2024-04-19 16:00] VITALS: BP 124/76
[2024-04-19] MEDS: MAXIPIME 2000 MG IV (17:25)
[2024-04-19 17:27] LABS: % Basophils 0.1 % (0-2); % Immature Granulocytes 0.5 % (0-0.5); % Lymphocytes 7.6 % (20.5-51.1); % Monocytes 6.3 % (1.7-9.3); % Neutrophils 85.5 % (42.2-75.2); Absolute Lymphocytes 0.6 10^3/uL (1.2-3.4); Absolute Monocytes 0.5 10^3/uL (0.1-0.6); Absolute Neutrophils 7.2 10^3/uL (1.4-6.5); Hematocrit 31.7 % (39.0-52.0); Mean Corp Hgb Conc. 31.5 g/dL (33.0-37.0); Mean Corpuscular Hgb 29.6 pg (27.0-31.0); Mean Corpuscular Volume 93.8 fL (80.0-94.0); Mean Platelet Volume 9.5 fL (7.4-10.4); Nucleated Red Blood Cells % 0 % (-); Platelet Count 180 10^3/uL (130-400); Red Blood Cell Count 3.38 10^6/uL (4.70-6.10); Red Cell Dist. Width 16.6 % (11.5-14.5); White Blood Cell Count 8.5 10^3/uL (4.8-10.8)
[2024-04-19 17:36] LABS: INR 1.16; PT 14.7 Sec (11.4-14.6)
[2024-04-19 17:37] LABS: APTT 32.7 Sec (23.4-35.0)
--- NOTE | 2024-04-19 17:48 | ED.GENMED ---
History of Present Illness
General
Chief Complaint: Male Genito-Urinary Symptoms
Time Seen by Provider: 04/19/24 16:08
History of Present Illness
History of Present Illness:
89-year-old male with history of CAD, diabetes, hyper tension, known AAA, A-fib on Eliquis presenting for concern of urinary tract infection. Patient arrives with son, notes history of UTI in the past. Past few days has had lower abdominal
discomfort and pressure with urination. He had urine checked outpatient that was positive for UTI. He talked to his vascular surgeon, Dr. Berumen, who is to repair his AAA on 04/21. He was subsequently told to come to the hospital for IV antibiotics
and admission. He denies any fever. He denies chest pain or difficulty breathing. He denies additional acute medical complaints.
Past History
Past History
ED Past Medical History: CHF and HTN
Social History
Tobacco: Non-smoker
Alcohol: None
Drug: None
Phy Exam
Physical Exam
Physical Exam:
General: Well-appearing, no clinical signs of dehydration, nontoxic and in no acute distress
HEENT: protecting airway
Neck: appears supple
CV: Normal heart rate, regular rhythm, no evidence of cyanosis
Resp: No accessory muscle use, no increased work of breathing, lungs clear to auscultation bilaterally
Abd: Soft and non-distended, mild tenderness to the suprapubic region, no rebound or guarding
Extremities: No deformities, no swelling, no erythema
Neuro: alert, no focal neurologic deficit
: deferred
Rectal: deferred
Psych: Normal affect
Skin: Intact
Course
Orders/Labs/Results
Orders:
Orders
04/19/24 15:36
Urinalysis Reflex To Culture Urgent
Date Specimen was Collected: 04/19/24
Time Specimen was Collected: 15:30
Urine Microscopic Reflex Cult Urgent
Urine Culture Urgent
KIKA Source: U
Specimen Description:
Obtained by: Random
Date Specimen was Collected: 04/19/24
Time Specimen was Collected: 15:30
04/19/24 17:13
Cefepime HCl [Maxipime] 2,000 mg IV NOW STA
04/19/24 17:14
Complete Blood Count/With Diff Urgent
Comprehensive Metabolic Panel Urgent
PTT Urgent
Prothrombin Time Urgent
Abnormal Lab Results
04/19/24 04/19/24
15:36 17:14
RBC 3.38 L 10^6/uL
(4.70-6.10)
Hgb 10.0 L g/dL
(13.0-18.0)
Hct 31.7 L %
(39.0-52.0)
MCHC 31.5 L g/dL
(33.0-37.0)
RDW 16.6 H %
(11.5-14.5)
Absolute Neuts (auto) 7.2 H 10^3/uL
(1.4-6.5)
Absolute Lymphs (auto) 0.6 L 10^3/uL
(1.2-3.4)
Neutrophils % 85.5 H %
(42.2-75.2)
Lymphocytes % 7.6 L %
(20.5-51.1)
BUN 33 H mg/dl
(9-20)
Glucose 235 H mg/dl
(70-99)
Total Protein 6.1 L g/dl
(6.3-8.2)
Leukocyte Esterase Rfl 1+ A
(Negative)
Urine WBC (Reflex) 21-25 A /HPF
(0-5)
Urine Bacteria (Reflex) Few A
(Negative)
04/19/24 17:14
04/19/24 17:14
Vital Signs
Initial and Last Documented VS:
Initial Vital Signs
Temp Pulse Resp BP Pulse Ox
98.1 F 75 16 128/70 96
04/19/24 15:27 04/19/24 15:27 04/19/24 15:27 04/19/24 15:27 04/19/24 15:27
Last Documented Vital Signs
Temp Pulse Resp BP Pulse Ox
98.1 F 75 16 128/70 96
04/19/24 15:27 04/19/24 15:27 04/19/24 15:27 04/19/24 15:27 04/19/24 15:27
MDM/Problems Addressed
MDM/Problems Addressed:
89-year-old male with known history of AAA presenting to the emergency department with concern for urinary tract infection. Vital signs within normal limits.
On exam, patient well-appearing, no acute distress or discomfort. He is afebrile, nontoxic, alert and oriented. Patient had outpatient urinalysis, consistent with UTI. Urine sent and repeated upon arrival, also positive for UTI. Patient with no
history of UTI. Patient is scheduled for AAA repair in 2 days. In discussion with his vascular surgeon, advised to come to the hospital for IV antibiotics and admission to get control of his infection prior to surgery. Did touch base Dr. Berumen.
Will start antibiotics. On review of prior urine cultures, pansensitive. Will start on cefepime. Patient otherwise hemodynamically stable.
*Critical Care Note
Total Time (30-74mins, 75-104mins- exclusive of procedures): Not Applicable
ED Attending Note
-
Portions of this chart may have been created with voice recognition software.� Occasional wrong word or��sound alike� substitutions may have occurred due to the inherent limitations of voice recognition software.
Discharge Plan
Departure
Prescriptions:
No Action
furosemide 40 mg Tablet
40 mg PO DAILY
sennosides [senna] 8.6 mg Tablet
8.6 mg PO DAILY
prednisone 20 mg Tablet
20 mg PO DAILY
sulfamethoxazole-trimethoprim 800-160 mg Tablet
1 tab PO MOWEFR
mycophenolate mofetil 500 mg Tablet
1,000 mg PO BID
alprazolam 0.5 mg Tablet
0.5 mg PO PRN PRN (Reason: anxiety)
nitroglycerin 0.4 mg Tablet, Sublingual
0.4 mg SUBLINGUAL [id number] PRN (Reason: angina)
sertraline 25 mg Tablet
25 mg PO HS
metoprolol succinate 25 mg Tablet Extended Release 24 Hr
25 mg PO DAILY
docusate sodium 100 mg Tablet
200 mg PO BID
rosuvastatin 20 mg Tablet
20 mg PO HS
pregabalin 50 mg Capsule
50 mg PO TID
levothyroxine 100 mcg Capsule
100 mcg PO DAILY
alogliptin 25 mg Tablet
25 mg PO DAILY
cephalexin [Keflex] 500 mg Capsule
500 mg PO TID
lisinopril 5 mg Tablet
5 mg PO DAILY
[place] Protect (zinc oxide) 12 % Cream
1 applic TOPICAL BID
[place] Protect (zinc oxide) 12 % Cream
1 applic TOPICAL PRN PRN (Reason: Buttock wound)
Osteo Bi-Flex Triple Strength 750 mg-644 mg- 30 mg-1 mg Tablet
1 tab PO DAILY
Del Menstrual 50 Plus
1 tab PO DAILY
Eliquis 5 mg tablet
5 mg PO .SEE BELOW
Patient Comments:
04/19/2024: on hold due to AAA surgery scheduled for 04/21/24
Referrals:
NONE,* [Family Provider] -
Discharge Date and Time
Print Language: BRAZILIAN
[2024-04-19 17:49] LABS: ALT (SGPT) 21 U/L (0-50); AST (SGOT) 24 U/L (17-59); Albumin 3.6 g/dl (3.5-5.0); Alkaline Phosphatase 64 U/L (38-126); Blood Urea Nitrogen 33 mg/dl (9-20); Carbon Dioxide 29 mmol/L (22-30); Chloride 103 mmol/L (98-107); Glucose 235 mg/dl (70-99); Potassium 4.8 mmol/L (3.5-5.1); Sodium 142 mmol/L (135-145); Total Bilirubin 0.4 mg/dl (0.2-1.3); Total Protein 6.1 g/dl (6.3-8.2); eGFR > 60.00
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
[2024-04-19 20:29] VITALS: BP 139/70
[2024-04-19 21:02] VITALS: BP 144/66; BMI 29.1
[2024-04-19] MEDS: COLACE 200 MG PO (21:59)
[2024-04-19] MEDS: CRESTOR 20 MG PO (21:59)
[2024-04-19] MEDS: CELLCEPT 1000 MG PO (21:59)
[2024-04-19] MEDS: ZOLOFT 25 MG PO (21:59)
[2024-04-19] MEDS: LYRICA 50 MG PO (22:00)
[2024-04-19] MEDS: TYLENOL 650 MG PO (22:58)
[2024-04-19 23:04] LABS: Glucose - Point of Care 130 mg/dl (70-99)
[2024-04-19 23:23] VITALS: BP 110/68
[2024-04-20] MEDS: MAXIPIME 1000 MG IV ×3 (02:17→17:32)
[2024-04-20] MEDS: STERILE WATER FOR INJECTION 10 ML IV ×3 (02:17→17:32)
[2024-04-20 03:38] VITALS: BP 112/45
[2024-04-20] MEDS: SYNTHROID 100 MCG PO (06:11)
[2024-04-20 07:22] VITALS: BP 115/65
[2024-04-20 07:53] LABS: Glucose - Point of Care 128 mg/dl (70-99)
--- NOTE | 2024-04-20 08:10 | W.PN.VS ---
Today's Communication / Plan
-
gentle ivf today
npo post midnight
hold anticoagulation
antbx
Assessment/Plan
-
UTI and AAA
- reports he feels fine
- no complaints
- Gentle iv hydration for contrast ankit in or
- hold anticoagulation
- antbx
- hopeful to be able to proceed ankit
Subjective Data
-
Date of Service: April 20, 2024
Patient admitted with uti
on schedule for aaa repair ankit
Objective Data
-
Vital Signs
Temp Pulse Resp BP Pulse Ox
98.0 F 58 18 115/65 99
04/20/24 07:22 04/20/24 07:22 04/20/24 07:22 04/20/24 07:22 04/20/24 07:22
Lab Results
04/19/24 17:14
04/19/24 17:14
Calcium 9.0 mg/dl (8.4-10.2) 04/19/24 17:14
Total Bilirubin 0.4 mg/dl (0.2-1.3) 04/19/24 17:14
AST 24 U/L (17-59) 04/19/24 17:14
ALT 21 U/L (0-50) 04/19/24 17:14
Alkaline Phosphatase 64 U/L (38-126) 04/19/24 17:14
Total Protein 6.1 g/dl (6.3-8.2) L 04/19/24 17:14
Albumin 3.6 g/dl (3.5-5.0) 04/19/24 17:14
Physical Exam
-
rrr
ctab
nt,nd,soft
[2024-04-20] MEDS: NOVOLOG FLEXPEN-LOW RESISTANCE SC (09:53)
[2024-04-20] MEDS: LYRICA 50 MG PO ×3 (09:54→22:01)
[2024-04-20] MEDS: SENOKOT 8.6 MG PO (09:54)
[2024-04-20] MEDS: CELLCEPT 1000 MG PO ×2 (09:55→20:02)
[2024-04-20] MEDS: TOPROL XL 25 MG PO (09:55)
[2024-04-20] MEDS: DELTASONE 20 MG PO (09:55)
[2024-04-20] MEDS: LASIX 40 MG PO (09:55)
[2024-04-20] MEDS: COLACE 200 MG PO ×2 (09:55→20:02)
[2024-04-20] MEDS: ZESTRIL 5 MG PO (09:55)
--- NOTE | 2024-04-20 10:08 | W.PN.HOSP.TC ---
Today's Communication/Plan
-
Continue with IV cefepime.
Check bladder residuals.
N.p.o. past midnight. IV fluids while NPO.
Hold XOCHILT inhibitor's preop.
Switch to stress dose of IV hydrocortisone preop
Assessment / Plan
Assessment / Plan
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 Admitted to hospital for IV antibiotics. Consulted ID. Check bladder scan for any residuals.
AAA-for repair on Sunday. Vascular surgery input noted. NPO past midnight . Slow IV hydration pre procedure per Vascular . Continue to hold his Eliquis.
Multivessel JVF-kpzcekudgblc-uwbhocje with his home medication
Chronic heart failure with reduced EF and ischemic craytiuqpoldmr-fyhbaapnowa-uwumurkc with his medication. Hold ACEI preop.CW lasix.
Paroxysmal atrial fibrillation-hold Eliquis and follow on telemetry.
Interstitial lung disease-pulmonary fibrosis-not hypoxic on room air at rest. He uses oxygen at chest which we will continue.
Rheumatoid arthritis on chronic steroid and associated Bactrim prophylaxis treatments which would continue.Switch to stress dose steroids preop.
DW RN
DW ID
Total time spent on today's encounter was 52 minutes which included time spent in counseling the patient regarding diagnosis and treatment plan as listed above, goals of care, and symptom management. Case was discussed with nursing staff,
specialists . All labs and imaging personally reviewed by me. Remainder the time spent in detailed review of previous records, lab data, imaging, and other medical provider documentation.
Full code
Anticipated Discharge: > 48 hours
Subjective/Interval History
-
Date of Service: April 20, 2024
Slept ok and he didnt have to wake up to urinate which he has to do normally at home.
Denies fever or chills.
Objective Data
-
Vital Signs:
Vital Signs
Temp Pulse Resp BP Pulse Ox
98.0 F 58 18 115/65 99
08/25/24 07:22 04/20/24 07:22 04/20/24 07:22 04/20/24 07:22 04/20/24 07:22
Review of Systems
-
Constitutional: Denies Fever
Respiratory: Denies Trouble Breathing
Cardiac: Denies Chest Pain
Abdomen/GI: Denies Abdominal Pain, Nausea or Vomiting
Neuro: Denies Dizzy
Physical Exam
-
General: Comfortable and Other (hard of hearing)
Respiratory: Clear to Auscultation
Cardiac: Regular Rhythm and S1/S2
GI: Soft and Nontender
Neuro: AO x 3
Psych: Calm; Negative Confused
Data Reviewed
-
Labs: Labs Reviewed by me
[2024-04-20 10:20] VITALS: BMI 29.1
[2024-04-20 11:05] VITALS: BP 107/56
[2024-04-20 11:12] LABS: Glycohemoglobin (HgbA1c) 7.6 % (4.0-5.6)
--- NOTE | 2024-04-20 11:38 | CM ---
Patient seen at bedside, nurse present. Patient [place], CM will return to complete assessment. Per Chart review patient previously lived at [facility] and had [facility] in February. CM will call to facility to confirm level of care prior to
admission. CM will continue to follow for discharge planning needs.
Plan; return to personal care with [facility] vs SNF
--- NOTE | 2024-04-20 11:39 | CON.ID ---
Consultation
-
Date/Time Consultation Requested: 04/19/20242041
Date/Time Consultation Performed: 04/20/2024 1112
Requesting Provider: Dr. Moody
Performing Provider: Dr. Blackwood
Reason for Consultation: Urinary tract infection
Chief Complaint / Past History
History of Present Illness
Spencer Enriquez is an 89-year-old man being evaluated at the request of Dr. Moody in regards to a complicated urinary tract infection. History is obtained from chart review, along with patient interview.
The patient has a significant past medical history of (reported) rheumatoid arthritis, and is maintained on mycophenolate and steroids, along with prophylactic Bactrim. He reports he has been living in [place], although this moved up to the local
area recently to be closer to his son. He notes that approximately 5 months ago he was admitted to the hospital in [place]. Once he was discharged to rehab, he was found to have urinary retention and had a catheter for approximately 1 months time.
He reports in the interim he has been doing well, but approximately 1 week ago he began to have urinary urgency and pressure. He spoke to the assisted living where he is residing and a urinalysis was obtained. Ultimately, he was found to have
Pseudomonas, and was admitted to the hospital for further care. His case is currently complicated by the fact that he has an infrarenal AAA, and is slated to have surgery and its treatment.
At this point in time he denies any fevers or chills. He denies any hematuria and overall his dysuria is characterized as 'mild'.
Past History
Additional Past Medical History:
RA (on mycophenolate, prednisone and prophylactic Bactrim)
CAD
DM
AAA
A-fib
CHF
HTN
Additional Past Surgical History:
Left CEA
Hemorrhoidectomy
Right TKA
Allergy History:
codeine Allergy (Verified 04/19/24 15:29)
Vomiting
Medications Reviewed: Yes
Current Antibiotics:
Cefepime 1 g IV every 8 hours
Bactrim 3 times a week
Social History
Tobacco: Non-Smoker
Alcohol: None
Drug: None
Living: Assisted Living
Employment: Retired
Family History
Family History: Not Pertinent
Review of Systems
Vital Signs
Temp Pulse Resp BP Pulse Ox
97.9 F 65 18 107/56 98
04/20/24 11:05 04/20/24 11:05 04/20/24 11:05 04/20/24 11:05 04/20/24 11:05
Physical Exam
Physical Exam
Constitutional: No Acute Distress, Comfortable and Non-toxic
Eyes: No Conjunctival Hemorrhage and Sclera Anicteric
Oral: No Thrush and No Ulcers
Cardiovascular: Regular Rate and S1/S2; Negative S3/S4 or Murmur
Pulmonary: Clear; Negative Wheezes, Rales or Rhonchi
Gastrointestinal: Soft, Non Tender, Distended, Normal Bowel Sounds, No Rebound and No Guarding
Genito-Urinary: Negative Berumen
Extremities: Negative Edema, Cyanosis or Erythema
Neurological: Awake and Alert
Psychological: Calm
.
Lab / Diagnostic Study Results
04/19/24 17:14
04/19/24 17:14
Abs Immat Gran (auto) 0.0 10^3/uL (0-0.05) 04/19/24 17:14
Absolute Neuts (auto) 7.2 10^3/uL (1.4-6.5) H 04/19/24 17:14
Absolute Lymphs (auto) 0.6 10^3/uL (1.2-3.4) L 04/19/24 17:14
Absolute Monos (auto) 0.5 10^3/uL (0.1-0.6) 04/19/24 17:14
Absolute Basos (auto) 0.0 10^3/uL (0-0.2) 04/19/24 17:14
Immature Gran % 0.5 % (0-0.5) 04/19/24 17:14
Neutrophils % 85.5 % (42.2-75.2) H 04/19/24 17:14
Lymphocytes % 7.6 % (20.5-51.1) L 04/19/24 17:14
Monocytes % 6.3 % (1.7-9.3) 04/19/24 17:14
Eosinophils % 0.0 % (0-6) 04/19/24 17:14
Basophils % 0.1 % (0-2) 04/19/24 17:14
PT 14.7 Sec (11.4-14.6) H 04/19/24 17:14
INR 1.16 04/19/24 17:14
Ur Squamous Epith Cells 3-5 /LPF (Few) 04/19/24 15:36
Microbiology Results
Micro:
04/19/24 15:36 Urine Culture - Pending
Urine
Imaging:
03/03/2024 CT abdomen/pelvis: 1. 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 2. Infrarenal neck measures 2.5 cm in length. No significant angulation of the
infrarenal neck, however there is ulcerated plaque within the infrarenal neck. 3. 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 4. Mild reticular interstitial thickening at the lung bases,
suggestive of mild interstitial fibrosis. 5. Cholelithiasis without evidence of acute cholecystitis.
Assessment / Plan
Complicated urinary tract infection secondary to Pseudomonas
AAA
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
RA (on mycophenolate, prednisone and prophylactic Bactrim)
CAD
DM
A-fib
CHF
HTN
Recommendations:
Continue with cefepime for today based upon cultures from mid-February.
Urine culture is currently pending. Would also attempt to get outpatient urine culture results.
Follow urinary symptomatology.
Monitor white count and temperature curve.
Care Review
Plan reviewed with: Physician (Hospitalist)
[2024-04-20 11:45] LABS: Glucose - Point of Care 211 mg/dl (70-99)
[2024-04-20] MEDS: NOVOLOG FLEXPEN-LOW RESISTANCE 2 UNITS SC ×2 (14:00→17:32)
[2024-04-20 15:18] VITALS: BP 124/70
--- NOTE | 2024-04-20 15:32 | PTCARENOTE ---
Patient pleasant, very [place]. Patient was tearful today thinking about his 's passing. Emotional support given. Patient ambulating in room with a steady gait. Patient was c/o urinary frequency, bladder scanned patient for 117 ml. Patient made
oaware of no eating or drinking after midnight. Patient verbalized understanding. Patient's son Law at the bedside.
[2024-04-20 17:05] LABS: Glucose - Point of Care 249 mg/dl (70-99)
[2024-04-20 19:20] VITALS: BP 111/56
[2024-04-20 21:16] LABS: Glucose - Point of Care 265 mg/dl (70-99)
[2024-04-20] MEDS: ZOLOFT 25 MG PO (21:57)
[2024-04-20] MEDS: CRESTOR 20 MG PO (21:57)
[2024-04-20] MEDS: TYLENOL 650 MG PO (22:04)
[2024-04-20 23:05] VITALS: BP 127/70
[2024-04-21] VITALS (10 sets, daily range): BP systolic 100–150; BP diastolic 53–72; BMI 28.7
[2024-04-21] MEDS: 0.45%NACL 1000 IV ×2 (00:56→17:20)
[2024-04-21] MEDS: STERILE WATER FOR INJECTION 10 ML IV ×3 (01:05→17:20)
[2024-04-21] MEDS: MAXIPIME 1000 MG IV ×3 (01:05→17:19)
--- NOTE | 2024-04-21 04:36 | PTCARENOTE ---
Patient received a complete bed bath; CHG wipes; and complete linen change. Patient has been NPO since midnight.
[2024-04-21 06:12] LABS: Glucose - Point of Care 99 mg/dl (70-99)
[2024-04-21] MEDS: NOVOLOG FLEXPEN-LOW RESISTANCE SC ×2 (06:14→12:00)
[2024-04-21] MEDS: SYNTHROID 100 MCG PO (06:19)
[2024-04-21] MEDS: SOLU-CORTEF 50 MG IV ×2 (06:19→20:56)
[2024-04-21] MEDS: COLACE 200 MG PO ×2 (07:52→20:55)
[2024-04-21] MEDS: LASIX 40 MG PO (07:52)
[2024-04-21] MEDS: LYRICA 50 MG PO ×3 (07:52→20:56)
[2024-04-21] MEDS: JANUVIA 100 MG PO (07:52)
[2024-04-21] MEDS: CELLCEPT 1000 MG PO ×2 (07:52→20:55)
[2024-04-21] MEDS: SENOKOT 8.6 MG PO (07:52)
[2024-04-21] MEDS: TOPROL XL 25 MG PO (07:53)
--- NOTE | 2024-04-21 08:00 | W.PN.HOSP.TC ---
Today's Communication/Plan
-
For AAA repair today
Assessment / Plan
Assessment / Plan
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 ID following, continue cefepime.
AAA-appreciate vascular surgery input, for endovascular repair today. Slow IV hydration pre procedure per Vascular . Continue to hold Eliquis.
Multivessel [id number] with his home medication
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
Paroxysmal atrial fibrillation-hold Eliquis and follow on telemetry.
Interstitial lung disease-pulmonary fibrosis-not hypoxic on room air at rest.
Rheumatoid arthritis on chronic steroid and associated Bactrim prophylaxis treatments which would continue. Switch to stress dose steroids preop.
Hypothyroidism-continue Synthroid
DVT ppx - SCDs
Full code
Total time spent to see the patient on the floor, examine the patient, review data and lab results, discuss treatment plan with patient, nursing staff around 40 minutes.
Physical Exam
General: No acute distress
HEENT: Normocephalic, Atraumatic, EOMI, MMM
Respiratory: Clear to Auscultation bilaterally
Cardiac: Normal S1/S2, Regular Rate and Rhythm
GI: Soft, Nontender, Nondistended, Normal Bowel Sounds
Extremities: No Clubbing, Cyanosis, or Edema
Neuro: Nonfocal/Grossly Intact
Psych: Calm, Cooperative
Derm: No Visible lesions
Anticipated Discharge: 24 - 48 hours
Subjective/Interval History
-
Date of Service: April 21, 2024
Patient reports irritation with initial void. Denies dysuria. No nausea, no vomiting. No fever.
Objective Data
-
Labs:
Laboratory Results
04/21/24
07:35
WBC Pending
Hgb Pending
Hct Pending
Plt Count Pending
Sodium Pending
Potassium Pending
Chloride Pending
Carbon Dioxide Pending
BUN Pending
Creatinine Pending
Glucose Pending
Calcium Pending
Vital Signs:
Vital Signs
Temp Pulse Resp BP Pulse Ox
98.1 F 58 17 124/71 100
04/21/24 07:50 04/21/24 07:50 04/21/24 07:50 04/21/24 07:50 04/21/24 07:50
I&O
04/20/24 04/21/24 04/22/24
06:59 06:59 06:59
Intake Total 830 / 830
Balance 830 / 830
[2024-04-21] MEDS: PERIDEX 0.12% ORAL RINSE 15 ML PO (08:02)
[2024-04-21] MEDS: BACTROBAN NASAL 1 GRAM NASAL (08:02)
[2024-04-21 08:03] LABS: Hematocrit 32.1 % (39.0-52.0); Hemoglobin 10.2 g/dL (13.0-18.0); Mean Corp Hgb Conc. 31.8 g/dL (33.0-37.0); Mean Corpuscular Hgb 30.2 pg (27.0-31.0); Mean Platelet Volume 9.8 fL (7.4-10.4); Platelet Count 155 10^3/uL (130-400); Red Blood Cell Count 3.38 10^6/uL (4.70-6.10); Red Cell Dist. Width 16.5 % (11.5-14.5); White Blood Cell Count 10.1 10^3/uL (4.8-10.8)
[2024-04-21] MEDS: BACTRIM DS 800 MG/160 MG 1 TABLET PO (08:06)
[2024-04-21 08:42] LABS: Blood Urea Nitrogen 26 mg/dl (9-20); Calcium 8.8 mg/dl (8.4-10.2); Carbon Dioxide 28 mmol/L (22-30); Chloride 104 mmol/L (98-107); Estimated Creatinine Clearance 55 ml/min; Glucose 110 mg/dl (70-99); Potassium 3.5 mmol/L (3.5-5.1); Sodium 141 mmol/L (135-145); eGFR > 60.00
--- NOTE | 2024-04-21 08:46 | CON.VAS ---
Consultation
Consultation Request
Date/Time Consultation Performed: 04/21/24 0830
Requesting Provider: Hospitalist
Performing Provider: Sara Bhatti, MARKETING AND PUBLIC RELATIONS MANAGER-C for Zachariah Berumen III
Reason for Consultation: AAA
Medical History
-
Chief Complaint: Dysuria
History of Present Illness:
This is an 89 year old male patient known to our service for AAA, with planned OR for EVAR originally on 04/18/24; however, patient's intermediate facility did not hold his oral anticoagulation causing cancellation of procedure and rescheduling for
today (04/21/24). Patient presented to ED on 04/19/24 with reports of dysuria, urinary frequency, and recent history of UTI, he was admitted for medical management. Currently, he offers no complaints and denies fever, chills, nausea, vomiting, fever,
and chills.
Past Medical History
Past Medical History: Arrhythmias, CAD, CHF, COPD, GERD, HTN, Hypercholesterolemia, IDDM, Valvular Disease and Other (AAA, RA (on mycophenolate, prednisone and prophylactic Bactrim), hearing loss)
Past Surgical History: Other (Carotid artery endarterectomy, kyphoplasty, Hemorrhoidectomy, Right TKA)
Social History
Tobacco: Former Smoker
Alcohol: None
Drug: None
Living: Assisted Living
Allergies / Home Medications
Allergy/AdvReac Type Severity Reaction Status Date / Time
codeine Allergy Vomiting Verified 04/19/24 15:29
�Medication �Instructions �Recorded �Confirmed �Type
alogliptin 25 mg tablet 25 mg PO DAILY Diabetes 03/03/24 04/19/24 History
alprazolam 0.5 mg tablet 0.5 mg PO PRN PRN anxiety 03/03/24 04/19/24 History
docusate sodium 100 mg tablet 200 mg PO BID Constipation 03/03/24 04/19/24 History
furosemide 40 mg tablet 40 mg PO DAILY Fluid 03/03/24 04/19/24 History
Retention/Swelling
levothyroxine 100 mcg capsule 100 mcg PO DAILY Thyroid 03/03/24 04/19/24 History
metoprolol succinate 25 mg 25 mg PO DAILY Heart 03/03/24 04/19/24 History
tablet,extended release 24 hr Disease/Condition
mycophenolate mofetil 500 mg tablet 1,000 mg PO BID IMMUNOSUPRESSANT 03/03/24 04/19/24 History
nitroglycerin 0.4 mg sublingual 0.4 mg sublingual [id number] PRN 03/03/24 04/19/24 History
tablet angina
prednisone 20 mg tablet 20 mg PO DAILY Anti-Inflammatory 03/03/24 04/19/24 History
pregabalin 50 mg capsule 50 mg PO TID Neurological Condition 03/03/24 04/19/24 History
rosuvastatin 20 mg tablet 20 mg PO HS High Cholesterol 03/03/24 04/19/24 History
sennosides 8.6 mg tablet (senna) 8.6 mg PO DAILY Constipation 03/03/24 04/19/24 History
sertraline 25 mg tablet 25 mg PO HS Depression 03/03/24 04/19/24 History
sulfamethoxazole 800 1 tab PO MOWEFR Infection 03/03/24 04/19/24 History
mg-trimethoprim 160 mg tablet
Del Menstrual 50 Plus 1 tab PO DAILY Supplement 04/10/24 04/19/24 History
cephalexin 500 mg capsule 500 mg PO TID Infection 04/10/24 04/19/24 History
glucosamine 750 dn-zrmkxfrlzhe-tad 1 tab PO DAILY Supplement 04/10/24 04/19/24 History
no1 644 mg-C 30 mg-nissa 1 mg
tablet (Osteo Bi-Flex Triple
Strength)
lisinopril 5 mg tablet 5 mg PO DAILY Blood Pressure 04/10/24 04/19/24 History
zinc oxide 12 % topical cream 1 applic topical BID Buttock wound 04/10/24 04/19/24 History
([place] Protect (zinc oxide))
zinc oxide 12 % topical cream 1 applic topical PRN PRN Buttock 04/10/24 04/19/24 History
([place] Protect (zinc oxide)) wound
apixaban 5 mg tablet (Eliquis) 5 mg PO .SEE BELOW AFib 04/19/24 04/19/24 History
Review of Systems
-
History Source: Patient
Constitutional: Reports No Symptoms
EENT: Reports No Symptoms
Respiratory: Reports No Symptoms
Cardiac: Reports No Symptoms
Abdomen/GI: Reports No Symptoms
: Reports Dysuria, Frequency and Urgency
Musculoskeletal: Reports No Symptoms
Skin: Reports No Symptoms
Neurological: Reports No Symptoms
Endocrine: Reports No Symptoms
Physical Exam
Vital Signs
Temp Pulse Resp BP Pulse Ox
98.1 F 60 17 124/71 100
04/21/24 07:50 04/21/24 07:52 04/21/24 07:50 04/21/24 07:52 04/21/24 07:50
Lab Results
04/21/24 07:35
04/21/24 07:35
Physical Exam
General: No Apparent Distress
HEENT: Normocephalic, Anicteric and Atraumatic
Respiratory: Non Labored Respirations
Cardiac: Negative JVD
GI: Soft, Non Tender and Non Distended
Musculoskeletal: No Edema
Skin: Warm and Dry
Neuro: AO x 3
Assessment / Plan
-
Assessment: 89 year old male admitted with UTI with AAA and planned for EAVR
Plan:
Will proceed with planned EVAR today per order of Dr. Zachariah Berumen III
NPO
Continue antibiotics
--- NOTE | 2024-04-21 09:52 | W.PN.ID1 ---
Date of Service
Date of Service: April 21, 2024
Today's Communication
Continue abx.
Assessment / Plan
Complicated urinary tract infection secondary to Pseudomonas
AAA
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
RA (on mycophenolate, prednisone and prophylactic Bactrim)
CAD
DM
A-fib
CHF
HTN
Recommendations:
Continue with cefepime for today based upon cultures from mid-February.
Urine culture is currently pending. Would also attempt to get outpatient urine culture results.
Follow urinary symptomatology.
Monitor white count and temperature curve.
Chief Complaint
-: UTI
Subjective / Review of Systems
Review of Systems: No Fever, No Chills and No Dysuria
Vital Signs / Physical Exam
Vital Signs
Vital Signs
Temp Pulse Resp BP Pulse Ox
98.1 F 60 17 124/71 100
04/21/24 07:50 04/21/24 07:52 04/21/24 07:50 04/21/24 07:52 04/21/24 07:50
Physical Exam
Constitutional: No Acute Distress, Comfortable and Non-toxic
Eyes: Sclera Anicteric
Cardiovascular: S1/S2; Negative S3/S4
Pulmonary: Non Labored
Gastrointestinal: Soft, Non Tender and Non Distended
Neurological: Awake, Alert and Other (Hard of hearing)
Psychological: Calm
Objective Data
Lab Data
Lab Results
04/21/24 07:35
04/21/24 07:35
PT 14.7 Sec (11.4-14.6) H 04/19/24 17:14
INR 1.16 04/19/24 17:14
APTT 32.7 Sec (23.4-35.0) 04/19/24 17:14
Estimated Creat Clear 55 ml/min 04/21/24 07:35
Total Bilirubin 0.4 mg/dl (0.2-1.3) 04/19/24 17:14
AST 24 U/L (17-59) 04/19/24 17:14
ALT 21 U/L (0-50) 04/19/24 17:14
Alkaline Phosphatase 64 U/L (38-126) 04/19/24 17:14
Most recent labs reviewed.
Micro Results:
04/19/24 15:36 Urine Culture - Pending
Urine
Outpatient Urine culture - 04/16/2024
Pseudomonas aeruginosa
Amikacin S
Cefepime S
Ceftazidime S
Gentamicin S
Imipenem I
Levofloxacin R
Meropenem I
Piperacillin S
Imaging:
03/03/2024 CT abdomen/pelvis: 1. 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 2. Infrarenal neck measures 2.5 cm in length. No significant angulation of the
infrarenal neck, however there is ulcerated plaque within the infrarenal neck. 3. 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 4. Mild reticular interstitial thickening at the lung bases,
suggestive of mild interstitial fibrosis. 5. Cholelithiasis without evidence of acute cholecystitis.
--- NOTE | 2024-04-21 10:30 | W.SUR.PREOP ---
Pre-Operative Surgical Note
-
I have examined this patient prior to the performance of the scheduled procedure.
The patient's condition is unchanged from the time of the current History and
Physical and the patient is able to undergo the scheduled procedure.
--- NOTE | 2024-04-21 10:35 | W.PN.UPDATE ---
Update Note
Progress Note Update
Patient doing well. Receiving intravenous antibiotics. Infectious disease following.
He has no complaints this morning
Nontoxic
Afebrile
Normal white count
Will plan to proceed with endovascular aortic aneurysm repair today. He has no clinical signs of systemic illness. Will treat urinary tract infection aggressively with infectious disease input.
Patient agrees to proceed with this plan.
Zachariah Berumen III, MD
[facility] Vascular Surgery
[phone] (exya)
[2024-04-21] MEDS: SOLU-CORTEF IV (11:37)
[2024-04-21 12:03] LABS: ACT-LR - POC 327 Seconds (116-155)
[2024-04-21 12:35] LABS: ACT-LR - POC 326 Seconds (116-155)
--- NOTE | 2024-04-21 13:15 | CON.INTV ---
Consultation
Consultation Request
Date/Time Consultation Requested: 04/21/2024
Date/Time Consultation Performed: 04/21/2024
Requesting Provider: Dr. Berumen
Performing Provider: Dr. Mateus Perez
Reason for Consultation: Postoperative ICU care status post EVAR
Medical History
-
History of Present Illness:
89-year-old man with history of known abdominal aortic aneurysm, originally had planned surgery for 04/18/2024. Patient also has history of rheumatoid arthritis on prednisone, MMF and prophylactic Bactrim. He got postponed due to not holding
anticoagulation. Procedure was scheduled for 04/21/2024. In the interim, on 04/19/2024 patient developed UTI symptoms. Culture positive with Pseudomonas. Started on antibiotics per infectious disease.
Surgery underwent on 04/21/[address] Berumen.
Patient in the critical care unit. Alert and cooperative. Following commands. Appears nontoxic.
Denies any right groin pain.
Denies nausea or vomiting
Tolerated dinner
Past Medical History
Past Medical History: Other (See assessment and plan section)
Social History
Tobacco: Smoker
Alcohol: None
Drug: None
Living: Assisted Living
Employment: Retired
Family History
Family History: Reviewed & Not Pertinent
Allergies / Home Medications
Allergies
Allergy/AdvReac Type Severity Reaction Status Date / Time
codeine Allergy Vomiting Verified 04/19/24 15:29
Home Medications
�Medication �Instructions �Recorded �Confirmed �Last Taken �Type
alogliptin 25 mg tablet 25 mg PO DAILY Diabetes 03/03/24 04/19/24 04/17/24 08:20 History
alprazolam 0.5 mg tablet 0.5 mg PO PRN PRN anxiety 03/03/24 04/19/24 Unknown History
docusate sodium 100 mg tablet 200 mg PO BID Constipation 03/03/24 04/19/24 04/17/24 16:45 History
furosemide 40 mg tablet 40 mg PO DAILY Fluid 03/03/24 04/19/24 04/17/24 08:20 History
Retention/Swelling
levothyroxine 100 mcg capsule 100 mcg PO DAILY Thyroid 03/03/24 04/19/24 04/18/24 05:00 History
metoprolol succinate 25 mg 25 mg PO DAILY Heart 03/03/24 04/19/24 04/17/24 08:20 History
tablet,extended release 24 hr Disease/Condition
mycophenolate mofetil 500 mg tablet 1,000 mg PO BID IMMUNOSUPRESSANT 03/03/24 04/19/24 04/17/24 16:45 History
nitroglycerin 0.4 mg sublingual 0.4 mg sublingual [id number] PRN 03/03/24 04/19/24 Unknown History
tablet angina
prednisone 20 mg tablet 20 mg PO DAILY Anti-Inflammatory 03/03/24 04/19/24 04/17/24 08:20 History
pregabalin 50 mg capsule 50 mg PO TID Neurological Condition 03/03/24 04/19/24 04/17/24 16:45 History
rosuvastatin 20 mg tablet 20 mg PO HS High Cholesterol 03/03/24 04/19/24 04/17/24 16:45 History
sennosides 8.6 mg tablet (senna) 8.6 mg PO DAILY Constipation 03/03/24 04/19/24 04/17/24 08:20 History
sertraline 25 mg tablet 25 mg PO HS Depression 03/03/24 04/19/24 04/17/24 16:45 History
sulfamethoxazole 800 1 tab PO MOWEFR Infection 03/03/24 04/19/24 04/16/24 12:00 History
mg-trimethoprim 160 mg tablet
Del Menstrual 50 Plus 1 tab PO DAILY Supplement 04/10/24 04/19/24 04/17/24 08:20 History
cephalexin 500 mg capsule 500 mg PO TID Infection 04/10/24 04/19/24 04/17/24 16:45 History
glucosamine 750 ic-bwnlwlfbqig-iac 1 tab PO DAILY Supplement 04/10/24 04/19/24 04/17/24 08:20 History
no1 644 mg-C 30 mg-nissa 1 mg
tablet (Osteo Bi-Flex Triple
Strength)
lisinopril 5 mg tablet 5 mg PO DAILY Blood Pressure 04/10/24 04/19/24 04/17/24 08:20 History
zinc oxide 12 % topical cream 1 applic topical BID Buttock wound 04/10/24 04/19/24 Unknown History
([place] Protect (zinc oxide))
zinc oxide 12 % topical cream 1 applic topical PRN PRN Buttock 04/10/24 04/19/24 Unknown History
([place] Protect (zinc oxide)) wound
apixaban 5 mg tablet (Eliquis) 5 mg PO .SEE BELOW AFib 04/19/24 04/19/24 Unknown History
Review of Systems
-
History Source: Patient
All other systems: Negative unless noted
Vitals / Labs / Diagnostic Testing
Vital Signs
Temp Pulse Resp BP Pulse Ox
97.9 F 63 22 102/65 96
04/21/24 10:05 04/21/24 10:05 04/21/24 10:05 04/21/24 10:05 04/21/24 10:05
Microbiology
04/19/24 15:36 Urine Urine Culture - Preliminary
Pseudomonas aeruginosa
Diagnostic Testing:
Physical Exam
-
HEENT: Normocephalic
Cardiovascular: S1/S2
Respiratory: Rales and Non-Labored Respirations
GI: Soft and Non Distended
Neurology: Awake, Alert and No Motor Deficits
Skin: Warm
General: Comfortable
Assessment
-
Abdominal aortic aneurysm status post EVAR 04/21/2024
Complicated UTI-Pseudomonas urine culture
Conditions present prior admission:
Abdominal aortic aneurysm
Rheumatoid arthritis on MMF/prednisone and prophylactic Bactrim.
Coronary artery disease-multivessel
Type 2 diabetes
Atrial fibrillation-on anticoagulation
Interstitial lung disease/pulmonary fibrosis-no details available on as needed oxygen supplementation
Hypertension
Heart failure
Echocardiogram 03/05/2024: Report reviewed showed ejection fraction 35-40%. Diastolic function indeterminate. Normal right ventricular size and function. No significant valve abnormality. Mild to severe pulmonary hypertension.
History of urinary retention
Assessment and plan:
Postoperative surgical intensive care unit monitoring
Supplemental oxygen as needed
Incentive spirometry
Aspiration precautions
Chest x-ray: Bilateral increased interstitial markings lower lobe predominant.
Stress dose of steroids started, can discontinue in 24 to 48 hours if hemodynamically stable.
Restart outpatient medications.
Right groin hematoma. Soft. Monitor closely.
Analgesia with narcotics: Monitor respiratory status closely.
Neuro and vascular checks per protocol
Vascular surgery following-correspondence and operative notes reviewed
Monitor blood pressure
Follow hemoglobin
Continue IV antibiotics for Pseudomonas in urine. Complicated UTI
Infectious disease following patient
Interstitial lung disease: No details available-used to follow-up in [place]. Patient does have oxygen at home
Appears to be at baseline
Patient is on immunosuppression for rheumatoid arthritis. Cannot rule out connective tissue disease associated ILD.
Chronically on MMF/prednisone--now on stress dose of steroids hydrocortisone postoperatively.
Follow-up with Dr. Elder 01/2024. Workup is ongoing. Records were requested in the outpatient setting from [place].
Continue oxygen limitation as necessary.
Hemoglobin stable: Chronic anemia noted.
Repeat H&H in the morning.
Follow blood sugars-Target blood sugars 140-180.
Insulin supplementation as needed
DVT prophylaxis
-
Early nutrition-advance diet as tolerated. Gentle IV hydration for now.
-
Early mobilization
-
[2024-04-21] MEDS: MORPHINE SULFATE 1 MG IV (14:35)
[2024-04-21 14:51] LABS: Hematocrit 30.3 % (39.0-52.0); Hemoglobin 9.6 g/dL (13.0-18.0); Mean Corp Hgb Conc. 31.7 g/dL (33.0-37.0); Mean Corpuscular Hgb 30.2 pg (27.0-31.0); Mean Corpuscular Volume 95.3 fL (80.0-94.0); Mean Platelet Volume 10.4 fL (7.4-10.4); Platelet Count 172 10^3/uL (130-400); Red Blood Cell Count 3.18 10^6/uL (4.70-6.10); Red Cell Dist. Width 16.4 % (11.5-14.5); White Blood Cell Count 11.1 10^3/uL (4.8-10.8)
--- NOTE | 2024-04-21 14:56 | CM ---
CM following re: discharge planning.
Reviewed pt's chart, met with pt this morning.
Pt is an 89 year old male, admitted with primary dx of Abdominal aortic aneurysm, s/p EVAR today.
Pt reports, prior to admission he resides at the [facility]. He has been there since December. He states prior to admission he ambulates with a walker. Sometimes he can ambulate independently. He states he has a walker, single
point cane and scooter at home. Pt is known to [facility] and [facility] home rehab.
He states he has a prescription plan with . Medical work-up in progress.
PT and OT will evaluate the pt to determine a level of care at discharge.
D/C plan: return back to [facility] with [facility] and [facility] at home. PT/OT to confirm level of care.
CM will follow with discharge plan updates as hospitalization progresses
[2024-04-21 15:04] LABS: Blood Urea Nitrogen 24 mg/dl (9-20); Calcium 8.1 mg/dl (8.4-10.2); Carbon Dioxide 22 mmol/L (22-30); Chloride 105 mmol/L (98-107); Estimated Creatinine Clearance 50 ml/min; Glucose 208 mg/dl (70-99); Potassium 3.7 mmol/L (3.5-5.1); Sodium 138 mmol/L (135-145); eGFR > 60.00
[2024-04-21] MEDS: NSS 1000 IV (15:38)
--- NOTE | 2024-04-21 16:49 | PTCARENOTE ---
[facility] Follow up right groin site, doppler checks and Lanie dressing. Continue neurovascular checks and follow up teaching needs with patient and son. Hearing aides in and lapel padder present. Will update diet when awake.
Follow up medications via [place]. Follow up assessment trends.
[2024-04-21] MEDS: OFIRMEV 100 IV (17:20)
--- NOTE | 2024-04-21 18:08 | PTCARENOTE ---
Patient AAOx3 cooperative and pleasant. Hard of hearing. Hearing aids charged and in with some improvement. Patient josie has new ones that his son [facility] going to get [facility] on Sunday. Doppler checks unchanged.. Feet remain cool with good
sensation. Right groin site with edema, soft and with some shadowing and tenderness. Denies pain at rest in either groin. Pain in lower back improving post medication. 50ml/hrly urine output since return from PACU. Continue neurovascular follow up.
Dinner at bedside patient request to eat later tonight. Tolerates sips of clears at this assessment. Continue with teaching and hourly rounds.
[2024-04-21] MEDS: MIRALAX 17 GRAMS PO (18:20)
[2024-04-21] MEDS: NOVOLOG FLEXPEN-LOW RESISTANCE 1 UNITS SC (18:20)
--- NOTE | 2024-04-21 18:29 | PTCARENOTE ---
Update and assessment review at bedside with Ui Ux Developer team. Continue follow up groin checks, neurovascular checks. Relief with medications for meds. Patient verbalizes satisfaction of cares and understanding of teaching. Continue ongoing vital
sign trends, MAP remains inside of parameters, IVF as ordered.
[2024-04-21 18:30] LABS: Glucose - Point of Care 174 mg/dl (70-99)
[2024-04-21] MEDS: NSS (PRESERVATIVE FREE) 8 ML IV (19:28)
[2024-04-21] MEDS: PEPCID 20 MG IV (19:28)
[2024-04-21] MEDS: DILAUDID 0.25 MG IV (19:33)
--- NOTE | 2024-04-21 20:00 | PTCARENOTE ---
Patient received in bed, AAOX3, SENECA-CAYUGA, pleasant. Complains of pain in right groin, prn dilaudid given with good relief. Sinus [place] on monitor, blood pressure as documented. Bilateral PTs and DPs present by doppler. Lungs diminished, pulse ox 98%
on 2L. Abdomen round with hypoactive bowel sounds. Berumen catheter draining yellow urine. Left groin incision intact. Right groin SHREYA with scant drainage. #20 g in RFA flushed and patent. #18 g in left wrist with IVF infusing as ordered. Left
radial [place] transduced and zeroed. Plan of care discussed, call calhoun within reach
[2024-04-21] MEDS: ZOLOFT 25 MG PO (20:55)
[2024-04-21] MEDS: CRESTOR 20 MG PO (20:56)
--- NOTE | 2024-04-21 21:23 | OR.RPT ---
Operative Report
Operative Report
Date of Operation: 04/21/2024
Pre Op Diagnosis: Large infrarenal abdominal aortic aneurysm
Post Op Diagnosis: Large infrarenal abdominal aortic aneurysm
Procedure:
1.) Percutaneous endovascular aortic aneurysm repair using Endologix AFX device:
AFX 28-90/16-30
AFX 34-100 suprarenal extension
2.) Cutdown and exposure of right common femoral artery with primary repair following endovascular procedure
3.) Introduce wires/catheters into thoracic aorta BILATERALLY from femoral artery access
4.) Ultrasound-guided percutaneous access to the bilateral common femoral arteries
5.) ProGlide closure of left common femoral artery access
Surgeon: Zachariah Berumen III, MD
Order Picker/Assembler: Cameron Arriaga MD PhD PGY-6
Anesthesia: General
Complications: None
Estimated Blood Loss: 100 cc
History and Indications for Procedure: 89-year-old male with large infrarenal abdominal aortic aneurysm.
Procedure in Detail: Spencer Enriquez was correctly identified and placed supine on the operating table. After adequate induction of anesthesia the abdomen, pelvis and bilateral groins were positioned, prepped and draped in the usual sterile fashion.
Preoperative antibiotics were administered. A timeout procedure was performed with the nursing and anesthesia staff confirming the patients identity as well as the nature and laterality of the procedure.
Under ultrasound guidance, bilateral femoral artery sheath access was obtained. The arteries were patent. We attempted to perform a preclose technique using offset Pro-glide closure devices from the right femoral artery access. Despite multiple
attempts we unfortunately could not successfully fire any of the Pro-glide closure devices due to arterial calcification. We made the decision to abandon this approach and cutdown on the artery at the end of the case. Over the wire an 8 Fr sheath
was placed into the right femoral access. A 7 Fr sheath was placed into the left femoral access. The patient was systemically heparinized.
From the right femoral access a KMP catheter and Bentson wire were advanced to the proximal descending thoracic aorta. The wire was exchanged out through the KMP catheter for a Lunderquist wire. Over the Lunderquist wire in the right femoral access
I placed the AFX introducer sheath and advanced the radio-opaque sheath tip to the abdominal aorta. An En-Snare catheter was placed over a Bentson wire from the left femoral access and advanced to the aortic bifurcation. The En-Snare was then
advanced through to the catheter tip.
The contralateral limb wire of the AFX2 main body was introduced through the introducer sheath and advanced to the aortic bifurcation. The 28-90/16-30 AFX2 bifurcated main body was then loaded onto the Lunderquist wire and advanced through the
introducer sheath. The wire was snared from the contralateral side and pulled out the left femoral access and the AFX2 main body was advanced until the limbs were above the aortic bifurcation. The entire system was then pulled down onto the aortic
bifurcation. The main body was then deployed by pulling the control cord.
The contralateral limb was then deployed by pulling the yellow limb cover. Once this was completed I advanced a pigtail catheter over the contralateral limb wire until the tip was in contact with the wire lock. The contralateral limb was then pulled
as I advanced the pigtail up to release it from the wire lock. The wire was removed and the formed pigtail catheter was then advanced proximally.
The ipsilateral limb was deployed by pinning the inner core and retracting the AFX introducer sheath.
The inner dilator was then withdrawn over the Lunderquist wire and with the introducer sheath. The introducer sheath and dilator were carefully readvanced over the Lunderquist wire through the main body and into the more proximal abdominal
aorta under fluoroscopic guidance. Through the introducer sheath I advanced a 34�100 supra renal endograft extension and performed an aortogram to clearly visualize the renal arteries. The stent was positioned appropriately below the renal arteries
and deployed under roadmap guidance in the desired location.
The delivery system was removed. A Coda balloon was introduced on the right and used to profile the proximal and distal seal zones as well as all areas of overlap. A 12 mm angioplasty balloon was used to profile the left iliac limb. Following this
the Coda balloon and angioplasty balloon were advanced to the proximal ends of the aortic stent graft. Stiff wires were removed.
A completion aortogram demonstrated an excellent technical result. The aneurysm was excluded. No endoleaks were identified. There was brisk flow through the stent and iliac limbs. The renal arteries were widely patent bilaterally. The iliac
bifurcations were preserved bilaterally.
We then focused our attention on repairing the right femoral artery access. A Mobilitie wire was reinserted through the Coda balloon. The Coda balloon was removed over the wire. A vertical incision was made in the right groin centered on the skin
access site. Electrocautery and sharp dissection were used to dissect out the common femoral artery. Proximal and distal control was obtained with vessel loops on the common femoral artery. The distal common femoral artery was calcified which was
likely why the initial Pro-glide closure devices failed to capture. The 17 Icelandic introducer sheath was removed over the wire. The vessel loops were secured proximally and distally. The arteriotomy was repaired primarily using interrupted 5-0
Prolene sutures. Following the repair the proximal and distal vessel loops were released. The suture line was closely inspected and was hemostatic. There was a palpable pulse proximal and distal to the suture line repair. The groin was irrigated
with warm saline solution. The wound was closed in multiple layers. A SHREYA dressing was applied.
A single Pro-glide closure device was used to close the left femoral artery access. Protamine was administered. Additional pressure was applied to the left puncture site. Hemostasis was achieved. Skin glue was applied to the puncture site.
The patient tolerated the procedure well and was taken to the PACU in stable condition.
Attestation: I was present and responsible for the entire procedure
Signed:
Zachariah Berumen III, MD
[facility] Surgery
[phone] (cell)
[2024-04-21 22:15] LABS: Glucose - Point of Care 115 mg/dl (70-99)
[2024-04-21] MEDS: NOVOLOG FLEXPEN-MODERATE RESISTANCE SC (22:15)
[2024-04-22] VITALS (15 sets, daily range): BP systolic 104–126; BP diastolic 50–88; PULSE 62–65; O2SAT 98; BMI 28.6
--- NOTE | 2024-04-22 00:18 | PTCARENOTE ---
Patient reassessed, sleeping when not disturbed, bilateral groin sites unchanged, bilateral distal pulses remain present by doppler. No other changes in assessment
[2024-04-22] MEDS: TYLENOL 650 MG PO ×3 (01:18→16:26)
[2024-04-22] MEDS: MAXIPIME 1000 MG IV ×3 (02:50→18:23)
[2024-04-22] MEDS: STERILE WATER FOR INJECTION 10 ML IV ×3 (02:50→18:23)
[2024-04-22 04:59] LABS: Hematocrit 26.1 % (39.0-52.0); Hemoglobin 8.3 g/dL (13.0-18.0); Mean Corp Hgb Conc. 31.8 g/dL (33.0-37.0); Mean Corpuscular Hgb 29.1 pg (27.0-31.0); Mean Corpuscular Volume 91.6 fL (80.0-94.0); Mean Platelet Volume 9.8 fL (7.4-10.4); Platelet Count 141 10^3/uL (130-400); Red Blood Cell Count 2.85 10^6/uL (4.70-6.10); Red Cell Dist. Width 16.4 % (11.5-14.5); White Blood Cell Count 11.4 10^3/uL (4.8-10.8)
[2024-04-22 05:20] LABS: INR 1.22; PT 15.2 Sec (11.4-14.6)
[2024-04-22 05:21] LABS: APTT 36.4 Sec (23.4-35.0)
[2024-04-22 05:22] LABS: Blood Urea Nitrogen 27 mg/dl (9-20); Calcium 7.7 mg/dl (8.4-10.2); Carbon Dioxide 23 mmol/L (22-30); Chloride 103 mmol/L (98-107); Estimated Creatinine Clearance 46 ml/min; Glucose 148 mg/dl (70-99); Magnesium 2.2 mg/dl (1.6-2.3); Sodium 137 mmol/L (135-145); eGFR 58.53
[2024-04-22] MEDS: SYNTHROID 100 MCG PO (05:46)
[2024-04-22] MEDS: SOLU-CORTEF 50 MG IV (05:46)
[2024-04-22 07:27] LABS: Glucose - Point of Care 95 mg/dl (70-99)
[2024-04-22] MEDS: NOVOLOG FLEXPEN-MODERATE RESISTANCE SC ×2 (07:34→16:33)
[2024-04-22] MEDS: CELLCEPT 1000 MG PO ×2 (08:23→22:01)
[2024-04-22] MEDS: LASIX 40 MG PO (08:24)
[2024-04-22] MEDS: COLACE 200 MG PO ×2 (08:24→22:01)
[2024-04-22] MEDS: JANUVIA 100 MG PO (08:24)
[2024-04-22] MEDS: TOPROL XL 25 MG PO (08:25)
[2024-04-22] MEDS: FLOMAX 0.4 MG PO (08:25)
[2024-04-22] MEDS: LYRICA 50 MG PO ×3 (08:25→22:02)
[2024-04-22] MEDS: SENOKOT 8.6 MG PO (08:25)
[2024-04-22] MEDS: ROXICODONE 5 MG PO (08:25)
[2024-04-22] MEDS: PROTONIX 40 MG PO (08:25)
--- NOTE | 2024-04-22 09:14 | W.PN.HOSP.TC ---
Today's Communication/Plan
-
see bold
Assessment / Plan
Assessment / Plan
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 ID following, continue cefepime.
AAA-appreciate vascular surgery input, s/p endovascular repair 04/[address] Berumen. Resume eliquis when cleared by vascular surg.
Multivessel [id number] with his home medication
Chronic heart failure with reduced EF and ischemic cardiomyopathy-compensated- Hold ACEI. CW lasix.
Paroxysmal atrial fibrillation-hold Eliquis and follow on telemetry.
Interstitial lung disease-pulmonary fibrosis-not hypoxic on room air at rest.
Rheumatoid arthritis on chronic steroid and associated Bactrim prophylaxis treatments which would continue. On stress dose steroids.
Hypothyroidism-continue Synthroid
DVT ppx - SCDs
Full code
Total time spent to see the patient on the floor, examine the patient, review data and lab results, discuss treatment plan with patient, nursing staff around 41 minutes.
Physical Exam
General: No acute distress
HEENT: Normocephalic, Atraumatic, EOMI, MMM
Respiratory: Clear to Auscultation bilaterally
Cardiac: Normal S1/S2, Regular Rate and Rhythm
GI: Soft, Nontender, Nondistended, Normal Bowel Sounds
Extremities: No Clubbing, Cyanosis, or Edema
Neuro: Nonfocal/Grossly Intact
Psych: Calm, Cooperative
Anticipated Discharge: 24 - 48 hours
Subjective/Interval History
-
Date of Service: April 22, 2024
Reports right groin pain. No CP/SOB, no fever, no N/V.
Objective Data
-
Labs:
Laboratory Results
04/22/24
04:44
WBC 11.4 H
Hgb 8.3 L
Hct 26.1 L
Plt Count 141
PT 15.2 H
INR 1.22
APTT 36.4 H
Sodium 137
Potassium 4.0
Chloride 103
Carbon Dioxide 23
BUN 27 H
Creatinine 1.2
Glucose 148 H
Calcium 7.7 L
Vital Signs:
Vital Signs
Temp Pulse Resp BP Pulse Ox
98.7 F 61 2 115/67 98
04/22/24 08:03 04/22/24 07:42 04/22/24 07:42 04/22/24 07:42 04/22/24 07:50
I&O
04/21/24 04/22/24 04/23/24
06:59 06:59 06:59
Intake Total 830 / 830 1810 / 2110 300 / 300
Output Total 1735 / 1785 50 / 50
Balance 830 / 830 75 / 325 250 / 250
[2024-04-22] MEDS: 0.45%NACL IV (10:26)
--- NOTE | 2024-04-22 10:49 | W.PN.INTV ---
Today's Communication / Plan
Recommendations
Discontinue arterial line
Increase activity as able
Holding anticoagulation for now, until cleared by vascular
Analgesia
Discontinue IV corticosteroids
Continue prednisone 20 mg daily baseline dose
Continue usual outpatient medications
Hopefully can transfer out of the ICU later today
Assessment
-
Abdominal aortic aneurysm status post EVAR 04/21/2024
Complicated UTI-Pseudomonas urine culture
Conditions present prior admission:
Abdominal aortic aneurysm
Rheumatoid arthritis on MMF/prednisone and prophylactic Bactrim.
Coronary artery disease-multivessel
Type 2 diabetes
Atrial fibrillation-on anticoagulation
Interstitial lung disease/pulmonary fibrosis-no details available on as needed oxygen supplementation
Hypertension
Heart failure
Echocardiogram 03/05/2024: Report reviewed showed ejection fraction 35-40%. Diastolic function indeterminate. Normal right ventricular size and function. No significant valve abnormality. Mild to severe pulmonary hypertension.
History of urinary retention
Assessment and plan:
Doing well postoperative day 1
Pain is controlled
No new complaints, uneventful night.
Incentive spirometry encouraged
Physical therapy/Occupational Therapy as able
Aspiration precautions
Chest x-ray: Bilateral increased interstitial markings lower lobe predominant.
Discontinue IV corticosteroids stress doses. Transition to equivalent of 20 mg of prednisone.
Continue outpatient medication
Right groin hematoma. Soft. Monitor closely. Stable 04/22/2024. Not significantly tender.
-
Analgesia with narcotics: Monitor respiratory status closely.
Neuro and vascular checks per protocol
Vascular surgery following-correspondence and operative notes reviewed
Monitor blood pressure
Follow hemoglobin
Continue IV antibiotics for Pseudomonas in urine. Complicated UTI
Infectious disease following patient
Interstitial lung disease: No details available-used to follow-up in [place]. Patient does have oxygen at home
Appears to be at baseline
Patient is on immunosuppression for rheumatoid arthritis. Cannot rule out connective tissue disease associated ILD.
Chronically on MMF/prednisone--now on stress dose of steroids hydrocortisone postoperatively.
Follow-up with Dr. Elder 01/2024. Workup is ongoing. Records were requested in the outpatient setting from [place].
Continue oxygen supplementation PRN
Hemoglobin stable: Chronic anemia noted. Trending lower, no evidence for bleeding. Hemoglobin 8.3.
Repeat H&H in the morning.
Follow blood sugars-Target blood sugars 140-180.
Insulin supplementation as needed
Systolic cardiomyopathy/atrial fibrillation: Rate controlled.
Appears euvolemic.
Continue cardiac regimen
DVT prophylaxis-eventually to restart anticoagulation when cleared by vascular surgery. Patient is on Eliquis for atrial fibrillation.
-
Discontinue IV fluids
Diet as tolerated
-
Physical therapy/Occupational Therapy as able to
-
Subjective Dataa
Subjective Data
Date of Service:
Date of Service: April 22, 2024
Chief Complaint: Flight Coordinator Follow Up (Status post EVAR)
Subjective:
Offers no new complaints
Denies abdominal pain nausea or vomiting.
Denies shortness of breath
Review of Systems
General: Fever (n)
Cardiopulmonary: Dyspnea (n)
GI: Abdominal Pain (n), Nausea and Vomiting (n)
Neuro: Headache (n)
Objective Data
Data Reviewed
Vital Signs / I&O / Oxygen:
Vital Signs
Temp Pulse Resp BP Pulse Ox
98.7 F 64 15 122/50 98
04/22/24 08:03 04/22/24 10:15 04/22/24 10:15 04/22/24 08:00 04/22/24 07:50
Intake and Output
04/21/24 04/22/24 04/23/24
06:59 06:59 06:59
Intake Total 830 / 830 1810 / 2110 670 / 670
Output Total 1735 / 1785 200 / 200
Balance 830 / 830 75 / 325 470 / 470
SaO2 98
Nasal Cannula flow liters per 2
minute
Physical Exam
General: Comfortable
HEENT: Normocephalic
Cardiovascular: S1-S2
Respiratory: Non-Labored Respirations
GI: Soft and Non Distended
Neurology: Awake, Alert, AO x 3 and No Motor Deficits
Skin: Warm
Labs/Micro/Reports
Lab Data
04/22/24 04:44
04/22/24 04:44
Laboratory Results
04/22/24
04:44
PT 15.2 H
INR 1.22
APTT 36.4 H
Microbiology
04/19/24 15:36 Urine Urine Culture - Preliminary
Pseudomonas aeruginosa
[2024-04-22 12:17] LABS: Glucose - Point of Care 215 mg/dl (70-99)
--- NOTE | 2024-04-22 12:49 | W.PN.VS ---
Addendum entered and electronically signed by Zachariah Berumen III, MD 04/22/24 17:01:
This patient was seen and examined with TOM Jesus. I agree with the history and physical exam as well as the assessment and plan.
Signed:
Zachariah Berumen III, MD
[facility] V[facility] Surgery
[phone] (amvp)
Original Note:
Today's Communication / Plan
-
See below.
Assessment/Plan
-
Assessment: UTI and AAA, POD #1 EVAR
Plan:
OOB to chair with progression ambulation as tolerated
Will keep Berumen additional day given active UTI
Discontinued fluids
Discontinue arterial line
Subjective Data
-
Date of Service: April 22, 2024
Patient seen and examined at bedside, offers no complaints. Tolerating p.o. diet. Denies nausea, vomiting, fever, and chills.
Objective Data
-
Vital Signs
Temp Pulse Resp BP Pulse Ox
98.6 F 64 15 122/50 98
04/22/24 11:15 04/22/24 10:15 04/22/24 10:15 04/22/24 08:00 04/22/24 07:50
Intake and Output
04/21/24 04/22/24 04/23/24
06:59 06:59 06:59
Intake Total 830 / 830 1810 / 2110 670 / 670
Output Total 1735 / 1785 200 / 200
Balance 830 / 830 75 / 325 470 / 470
Intake:
Oral fluids 830 / 830 390 / 630 600 / 600
IV fluids (Total) 1320 / 1380 60 / 60
0.45%NaCl 1,000 ml @ 60 mls/hr 840 / 900 60 / 60
IV .[id number] [facility] Rx#:[id number]
NSS 400 / 400
Nss 1,000 ml @ 80 mls/hr IV . 80 / 80
[id number] [facility] Rx#:[id number]
IV piggybacks 100 / 100 10 / 10
Output:
Urine, Berumen 1035 / 1085 200 / 200
Urine, Voided 700 / 700
Other:
Number of approximated MODERATE 1
amounts of urine
Number of unmeasured liquid
stools
Rectum 1
Lab Results
04/22/24 04:44
04/22/24 04:44
Calcium 7.7 mg/dl (8.4-10.2) L 04/22/24 04:44
Magnesium 2.2 mg/dl (1.6-2.3) 04/22/24 04:44
Total Bilirubin 0.4 mg/dl (0.2-1.3) 04/19/24 17:14
AST 24 U/L (17-59) 04/19/24 17:14
ALT 21 U/L (0-50) 04/19/24 17:14
Alkaline Phosphatase 64 U/L (38-126) 04/19/24 17:14
Total Protein 6.1 g/dl (6.3-8.2) L 04/19/24 17:14
Albumin 3.6 g/dl (3.5-5.0) 04/19/24 17:14
Physical Exam
-
AAOx3, no apparent distress
No tachycardia
No dyspnea
ABD rotund, nondistended, nontender
Right groin dressing CDI, no evidence of edema or hematoma, left groin puncture site CDI Exofin glue intact
Bilateral DP pulses +1 palpable
[2024-04-22] MEDS: NOVOLOG FLEXPEN-MODERATE RESISTANCE 3 UNITS SC (12:59)
--- NOTE | 2024-04-22 13:25 | PN.CDI ---
CDI
- -
CDI:
Physician Documentation Request
Admit Date: 04/19/24 18:14
Dear TOM Clemens,
Please review the following and provide your response in the progress notes.
Clinical Indicators:
Date of Operation: 04/21/2024
#Post Op Diagnosis: Large infrarenal abdominal aortic aneurysm
#Procedure:
#...1.) Percutaneous endovascular aortic aneurysm repair using Endologix AFX device:
#Estimated Blood Loss: 100 cc
PN, 04/22
#Assessment: UTI and AAA, POD #1 EVAR
Laboratory Tests
04/19/24 04/21/24 04/21/24
17:14 07:35 14:33
Hgb 10.0 L 10.2 L 9.6 L
04/22/24
04:44
Hgb 8.3 L
Based on the above and your clinical assessment, please clarify the likely condition/diagnosis evaluated, monitored and/or treated?
Acute blood loss anemia
Acute blood loss anemia with baseline chronic anemia (Specify type)
Other(please specify)
Use of terms such as suspected, likely, concern for, or probable (associated with a specific diagnosis that is being evaluated, monitored, or treated as if it exists) are acceptable and can be coded in the inpatient setting, when documented at the
time of discharge.
Thank you,
June Navarro RN BSN CCDS
CDI Specialist
please contact via tiger text
Please use your independent medical judgment in providing your response.
--- NOTE | 2024-04-22 13:29 | W.PN.ID1 ---
Date of Service
Date of Service: April 22, 2024
Today's Communication
Continue antibiotics.
Assessment / Plan
Complicated urinary tract infection secondary to Pseudomonas
AAA
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
RA (on mycophenolate, prednisone and prophylactic Bactrim)
CAD
DM
A-fib
CHF
HTN
Recommendations:
Continue with cefepime.
Urine culture is currently pending.
Follow urinary symptomatology.
Monitor white count and temperature curve.
����������������������������������������������������������
Chief Complaint
-: UTI
Subjective / Review of Systems
Patient seen and examined. Underwent percutaneous endovascular aortic aneurysm repair yesterday. Overall feels well today. No specific complaints.
Review of Systems: No Fever and No Chills
Vital Signs / Physical Exam
Vital Signs
Vital Signs
Temp Pulse Resp BP Pulse Ox
98.6 F 61 14 110/53 98
04/22/24 11:15 04/22/24 13:00 04/22/24 13:00 04/22/24 12:00 04/22/24 07:50
Physical Exam
Constitutional: No Acute Distress, Comfortable and Non-toxic
Eyes: Sclera Anicteric
Cardiovascular: S1/S2; Negative S3/S4
Pulmonary: Non Labored
Gastrointestinal: Soft, Non Tender and Non Distended
Wound: Other (Inguinal wounds intact.)
Neurological: Awake, Alert and Other (Hard of hearing)
Psychological: Calm
Objective Data
Lab Data
Lab Results
04/22/24 04:44
04/22/24 04:44
PT 15.2 Sec (11.4-14.6) H 04/22/24 04:44
INR 1.22 04/22/24 04:44
APTT 36.4 Sec (23.4-35.0) H 04/22/24 04:44
Estimated Creat Clear 46 ml/min 04/22/24 04:44
Total Bilirubin 0.4 mg/dl (0.2-1.3) 04/19/24 17:14
AST 24 U/L (17-59) 04/19/24 17:14
ALT 21 U/L (0-50) 04/19/24 17:14
Alkaline Phosphatase 64 U/L (38-126) 04/19/24 17:14
Most recent labs reviewed.
Micro Results:
04/19/24 15:36 Urine Culture - Preliminary
Urine Pseudomonas aeruginosa
Outpatient Urine culture - 04/16/2024
Pseudomonas aeruginosa
Amikacin S
Cefepime S
Ceftazidime S
Gentamicin S
Imipenem I
Levofloxacin R
Meropenem I
Piperacillin S
Imaging:
03/03/2024 CT abdomen/pelvis: 1. 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 2. Infrarenal neck measures 2.5 cm in length. No significant angulation of the
infrarenal neck, however there is ulcerated plaque within the infrarenal neck. 3. 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 4. Mild reticular interstitial thickening at the lung bases,
suggestive of mild interstitial fibrosis. 5. Cholelithiasis without evidence of acute cholecystitis.
--- NOTE | 2024-04-22 13:48 | CM ---
CM following re: discharge planning.
Discussed in Rounds, reviewed pt's chart, met with pt.
Pt is POD #1 EVAR. pt is aware that Berumen catheter will be for one additional day and pt expressed his desire to return back to [facility]. Pt is very THREE AFFILIATED and reads lips. Pt stated he is 23 year of service , 100% 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
away in May of last year. Emotional support offered and provided.
Pt reports his son will transport back to [facility] at discharge. Pt is known to [facility]. Pt stated he was in acute rehab in [place] last year, was not able to tolerate 3 hours of PT/OT per day and
was discharged back home within 5 days.
Pt referred to [facility] at home.
D/C plan: return back to [facility] with [facility], [facility] PT/OT, staff and family support. Son to transport at discharge.
CM will follow with discharge plan updates as hospitalization progresses
[2024-04-22 16:28] LABS: Hematocrit 27.6 % (39.0-52.0); Hemoglobin 8.7 g/dL (13.0-18.0)
--- NOTE | 2024-04-22 16:33 | PTCARENOTE ---
Follow assessment thru day. Patient with ongoing improvement in mobility, appetite and vs trends. Out of bed to chair for 2.5 hours today. Ambulate room with rolling walker and one person assist. Repeat H/H as noted will follow with vascular team.
Hospitalist, Spice Room Worker, PT/OT and vascular team in several times thru day. Continue with POD#1 teaching and follow up cares. Update with patient and son thru day. Family verbalizes satisfaction of cares continue supportive cares and teaching.
[2024-04-22 16:40] LABS: Glucose - Point of Care 99 mg/dl (70-99)
[2024-04-22] MEDS: MIRALAX PO (18:23)
--- NOTE | 2024-04-22 21:30 | PTCARENOTE ---
Resumed care of pt this evening. Received pt to be A&Ox3, can make needs known, and can move all 4 extremities. Neurovascular checks unchanged from previous shift assessment. Pt is in NSR on tele monitor, has trace edema on rt lower extremity, and
DP/PT pulses are present bilaterally via doppler. Pt on RA satting at 95% pulse ox. On auscultation pt lungs sound diminished at the bases bilaterally. Pt's abdomen is round, obese, and has hypoactive BS. Berumen cath in place draining china colored
urine. Right groin surgical dressing w/ SHREYA drain C/D/I. Left groin surgical dressing also C/D/I. Pt denies pain.
[2024-04-22 21:45] LABS: Glucose - Point of Care 172 mg/dl (70-99)
[2024-04-22] MEDS: NOVOLOG FLEXPEN-MODERATE RESISTANCE 1 UNITS SC (22:02)
[2024-04-22] MEDS: CRESTOR 20 MG PO (22:02)
[2024-04-22] MEDS: ZOLOFT 25 MG PO (22:03)
[2024-04-23] VITALS (16 sets, daily range): BP systolic 101–138; BP diastolic 46–76; BMI 29.3
--- NOTE | 2024-04-23 00:25 | PTCARENOTE ---
Neurovascular checks remained unchanged. Pt resting comforably at this time.
[2024-04-23] MEDS: MAXIPIME 1000 MG IV ×2 (02:11→10:35)
[2024-04-23] MEDS: STERILE WATER FOR INJECTION 10 ML IV ×2 (02:11→10:35)
--- NOTE | 2024-04-23 04:24 | PTCARENOTE ---
Pt tolerating 2L of O2 satting at 97% pulse ox. Pt denies any pain.
[2024-04-23 05:34] LABS: Hematocrit 26.5 % (39.0-52.0); Hemoglobin 8.4 g/dL (13.0-18.0); Mean Corp Hgb Conc. 31.7 g/dL (33.0-37.0); Mean Corpuscular Hgb 29.4 pg (27.0-31.0); Mean Corpuscular Volume 92.7 fL (80.0-94.0); Mean Platelet Volume 9.6 fL (7.4-10.4); Platelet Count 128 10^3/uL (130-400); Red Blood Cell Count 2.86 10^6/uL (4.70-6.10); Red Cell Dist. Width 16.5 % (11.5-14.5); White Blood Cell Count 9.5 10^3/uL (4.8-10.8)
[2024-04-23] MEDS: SYNTHROID 100 MCG PO (06:15)
[2024-04-23 06:23] LABS: Blood Urea Nitrogen 30 mg/dl (9-20); Calcium 8.1 mg/dl (8.4-10.2); Carbon Dioxide 25 mmol/L (22-30); Chloride 105 mmol/L (98-107); Estimated Creatinine Clearance 40 ml/min; Glucose 124 mg/dl (70-99); Potassium 3.6 mmol/L (3.5-5.1); Sodium 137 mmol/L (135-145); eGFR 48.65
--- NOTE | 2024-04-23 09:18 | W.PN.HOSP.TC ---
Today's Communication/Plan
-
see bold
Assessment / Plan
Assessment / Plan
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 ID following, currently on cefepime. Patient seems lethargic, will change to Zosyn.
AAA-appreciate vascular surgery input, s/p endovascular repair 04/[address] Berumen. Eliquis resumed, continue statin
Multivessel TOG-gwxiilcqynyn-ewclwjdr Eliquis, statin, Toprol XL
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
Acute kidney injury�hold lisinopril, trend creatinine
Paroxysmal atrial fibrillation-continue Eliquis, metoprolol succinate
Interstitial lung disease-pulmonary fibrosis-not hypoxic on room air at rest.
Rheumatoid arthritis on chronic steroid and associated Bactrim prophylaxis treatments which would continue. Status post stress dose steroids, back on home prednisone dose
Hypothyroidism-continue Synthroid
Insomnia�would hold sleep medications for now due to patient's lethargy
DVT ppx - eliquis
Full code
Dispo - PT rec HH
Total time spent to see the patient on the floor, examine the patient, review data and lab results, discuss treatment plan with patient, nursing staff around 51 minutes.
Physical Exam
General: No acute distress
HEENT: Normocephalic, Atraumatic, EOMI, MMM
Respiratory: Clear to Auscultation bilaterally
Cardiac: Normal S1/S2, Regular Rate and Rhythm
GI: Soft, Nontender, Nondistended, Normal Bowel Sounds
Extremities: No Clubbing, Cyanosis, or Edema
Neuro: Nonfocal/Grossly Intact
Psych: Calm, Cooperative
Anticipated Discharge: 24 - 48 hours
Subjective/Interval History
-
Date of Service: April 22, 2024
Patient sleepy this morning. He did not sleep well the last few nights. No fever, no vomiting.
Objective Data
-
Labs:
Laboratory Results
04/22/24
04:44
WBC 11.4 H
Hgb 8.3 L
Hct 26.1 L
Plt Count 141
PT 15.2 H
INR 1.22
APTT 36.4 H
Sodium 137
Potassium 4.0
Chloride 103
Carbon Dioxide 23
BUN 27 H
Creatinine 1.2
Glucose 148 H
Calcium 7.7 L
Vital Signs:
Vital Signs
Temp Pulse Resp BP Pulse Ox
98.6 F 61 14 110/53 98
04/22/24 11:15 04/22/24 13:00 04/22/24 13:00 04/22/24 12:00 04/22/24 07:50
I&O
04/21/24 04/22/24 04/23/24
06:59 06:59 06:59
Intake Total 830 / 830 1810 / 2110 1030 / 1030
Output Total 1735 / 1785 425 / 425
Balance 830 / 830 75 / 325 605 / 605
--- NOTE | 2024-04-23 09:22 | W.PN.VS ---
Addendum entered and electronically signed by Zachariah Berumen III, MD 04/23/24 14:40:
This patient was seen and examined with TOM Armas. I agree with the history and physical exam as well as the assessment and plan. I have the following additions:
Doing well overall
Lanie dressing intact
remove Berumen
Follow-up on antibiotic plan from infectious disease
Resume anticoagulation
Physical therapy follow-up
Signed:
Zachariah Berumen III, MD
[facility] Vascular Surgery
[phone] (cell)
Original Note:
Today's Communication / Plan
-
Seen and assessed with Dr Berumen
Assessment/Plan
-
Assessment: UTI and AAA, POD #2 EVAR
Plan:
Will need aggressive antibiotic plan for UTI with new graft placement
Ambulate
DC ethan
Restart eliquis today
OK for DC from vasc standpoint
Subjective Data
-
Date of Service: April 23, 2024
Pt seen at bedside this am with Dr Berumen. Pt offers no complaints at this time. No events overnight.
Objective Data
-
Vital Signs
Temp Pulse Resp BP Pulse Ox
99.6 F 74 18 128/56 100
04/23/24 03:44 04/23/24 06:00 04/23/24 06:00 04/23/24 06:00 04/22/24 23:45
Intake and Output
04/22/24 04/23/24 04/24/24
06:59 06:59 06:59
Intake Total 1810 / 2110 1510 / 1510
Output Total 1735 / 1785 1582 / 1582
Balance 75 / 325 -72 / -72
Intake:
Oral fluids 390 / 630 1440 / 1440
IV fluids (Total) 1320 / 1380 60 / 60
0.45%NaCl 1,000 ml @ 60 mls/hr 840 / 900 60 / 60
IV .[id number] LESLEY Rx#:[id number]
NSS 400 / 400
Nss 1,000 ml @ 80 mls/hr IV . 80 / 80
[id number] LESLEY Rx#:[id number]
IV piggybacks 100 / 100 10 / 10
Output:
Urine, Berumen 1035 / 1085 1172 / 1172
Urine, Voided 700 / 700 410 / 410
Lab Results
04/23/24 05:27
04/23/24 05:27
Calcium 8.1 mg/dl (8.4-10.2) L 04/23/24 05:27
Magnesium 2.2 mg/dl (1.6-2.3) 04/22/24 04:44
Total Bilirubin 0.4 mg/dl (0.2-1.3) 04/19/24 17:14
AST 24 U/L (17-59) 04/19/24 17:14
ALT 21 U/L (0-50) 04/19/24 17:14
Alkaline Phosphatase 64 U/L (38-126) 04/19/24 17:14
Total Protein 6.1 g/dl (6.3-8.2) L 04/19/24 17:14
Albumin 3.6 g/dl (3.5-5.0) 04/19/24 17:14
Physical Exam
-
AAOx3, no apparent distress
No tachycardia
No dyspnea
ABD rotund, nondistended, nontender
Right groin dressing CDI, no evidence of edema or hematoma, left groin puncture site CDI Exofin glue intact
Bilateral DP pulses +1 palpable
[2024-04-23] MEDS: PROTONIX 40 MG PO (09:38)
[2024-04-23] MEDS: FLOMAX 0.4 MG PO (09:38)
[2024-04-23] MEDS: CELLCEPT 1000 MG PO ×2 (09:38→21:35)
[2024-04-23] MEDS: COLACE 200 MG PO (09:38)
[2024-04-23] MEDS: DELTASONE 20 MG PO (09:38)
[2024-04-23] MEDS: TOPROL XL 25 MG PO (09:39)
[2024-04-23] MEDS: JANUVIA 100 MG PO (09:39)
[2024-04-23] MEDS: LASIX PO (09:39)
[2024-04-23] MEDS: LYRICA 50 MG PO (09:39)
[2024-04-23] MEDS: SENOKOT 8.6 MG PO (09:39)
[2024-04-23] MEDS: BACTRIM DS 800 MG/160 MG PO (09:40)
[2024-04-23] MEDS: NOVOLOG FLEXPEN-MODERATE RESISTANCE SC (09:41)
[2024-04-23] MEDS: NOVOLOG FLEXPEN-MODERATE RESISTANCE 1 UNITS SC (11:35)
[2024-04-23 11:46] LABS: Glucose - Point of Care 160 mg/dl (70-99)
--- NOTE | 2024-04-23 11:54 | W.PN.INTV ---
Today's Communication / Plan
Recommendations
Continue postoperative care
Follow H&H
Analgesia with narcotics, monitor respiratory status closely
Continue prednisone and MMF
Outpatient pulmonary follow-up with Dr. Elder
Assessment
-
Abdominal aortic aneurysm status post EVAR 04/21/2024
Complicated UTI-Pseudomonas urine culture
Conditions present prior admission:
Abdominal aortic aneurysm
Rheumatoid arthritis on MMF/prednisone and prophylactic Bactrim.
Coronary artery disease-multivessel
Type 2 diabetes
Atrial fibrillation-on anticoagulation
Interstitial lung disease/pulmonary fibrosis-no details available on as needed oxygen supplementation
Hypertension
Heart failure
Echocardiogram 03/05/2024: Report reviewed showed ejection fraction 35-40%. Diastolic function indeterminate. Normal right ventricular size and function. No significant valve abnormality. Mild to severe pulmonary hypertension.
History of urinary retention
Assessment and plan:
Doing well postoperative day 2
Pain is controlled
uneventful night.
Incentive spirometry encouraged
Contimue Physical therapy/Occupational Therapy.
Aspiration precautions
Chest x-ray: Bilateral increased interstitial markings lower lobe predominant.
Continue baseline 20 mg of prednisone.
Continue outpatient medication
Right groin hematoma. Soft. Monitor closely. Stable 04/23/2024. Not significantly tender.
Hb stable.
-
Analgesia with narcotics: Monitor respiratory status closely.
Neuro and vascular checks per protocol
Vascular surgery following-correspondence and operative notes reviewed
Continue IV antibiotics for Pseudomonas in urine. Complicated UTI
Infectious disease following patient
Interstitial lung disease: No details available-used to follow-up in [place]. Patient does have oxygen at home
Appears to be at baseline
Patient is on immunosuppression for rheumatoid arthritis. Cannot rule out connective tissue disease associated ILD.
Chronically on MMF/prednisone--now on stress dose of steroids hydrocortisone postoperatively.
Follow-up with Dr. Elder 01/2024. Workup is ongoing. Records were requested in the outpatient setting from [place].
Continue oxygen supplementation PRN
Hemoglobin stable: Chronic anemia noted. Trending lower, no evidence for bleeding.
Stable hemoglobin
Follow blood sugars-Target blood sugars 140-180.
Insulin supplementation as needed
Systolic cardiomyopathy/atrial fibrillation: Rate controlled.
Appears euvolemic.
Continue cardiac regimen
DVT prophylaxis-eventually to restart anticoagulation when cleared by vascular surgery. Patient is on Eliquis for atrial fibrillation.
-
Diet as tolerated
-
Transfer to telemetry. Critical care team will sign off.
Please call pulmonary if any respiratory issues arise per
Follow up with Dr. Elder after discharge.
Subjective Dataa
Subjective Data
Date of Service:
Date of Service: April 23, 2024
Chief Complaint: Gas Pumper Follow Up (Status post EVAR)
Subjective:
No new complaints.
Stable hemodynamically overnight.
Pain is controlled.
Review of Systems
Cardiopulmonary: Dyspnea (n)
GI: Abdominal Pain (n)
Neuro: Headache (n)
Objective Data
Data Reviewed
Vital Signs / I&O / Oxygen:
Vital Signs
Temp Pulse Resp BP Pulse Ox
98.2 F 80 19 120/55 96
04/23/24 10:00 04/23/24 10:45 04/23/24 10:45 04/23/24 10:00 04/23/24 10:48
Intake and Output
04/22/24 04/23/24 04/24/24
06:59 06:59 06:59
Intake Total 1810 / 2110 1510 / 1570 180 / 180
Output Total 1735 / 1785 1582 / 1632 350 / 350
Balance 75 / 325 -72 / -62 -170 / -170
SaO2 96
Nasal Cannula flow liters per 2
minute
Physical Exam
General: Comfortable
HEENT: Normocephalic
Cardiovascular: S1-S2
Respiratory: Non-Labored Respirations
GI: Soft and Non Distended
Neurology: Awake, Alert, AO x 3 and No Motor Deficits
Skin: Warm
Labs/Micro/Reports
Lab Data
04/23/24 05:27
04/23/24 05:27
Microbiology
04/19/24 15:36 Urine Urine Culture - Final
Pseudomonas aeruginosa
--- NOTE | 2024-04-23 12:32 | PTCARENOTE ---
Continue with assessment and ongoing vital sign trends. Patient chief complaint of exhaustion. States hasn't slept well in three days. Pain well managed relief with tylenol and out of bed positional changes. Patient had coffee and muffin only for
breakfast. Accu checks ongoing with coverage as ordered. Ata tubbs. Antibiotic review with infectious disease team and hospitalist at bedside. Continue follow up assessment and checks.
--- NOTE | 2024-04-23 12:53 | CM ---
Addendum entered by Jonny Berry 04/23/24 13:39:
CM left a message to FARIBA Pineda at [facility].
Pt's clinical faxed to [facility] at [phone] for a review.
Discharge instructions need to be faxed to following:
- [facility]: - [phone]
- [facility]: - [phone]
- [facility]: - [phone].
Original Note:
CM following re: discharge planning.
Discussed in Rounds, reviewed pt's chart, met with pt.
Pt is POD #1 EVAR.
Pt expressed his desire to return back to [facility]. Pt is very [place] and reads lips. Pt stated he is 23 year of service , 100% connected with [facility], used to live with in [place], still has a house in [place] but son lives in
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 Emotional support offered and provided.
Pt reports his son will transport back to [facility] at discharge. Pt is known to [facility] and [facility].
IMM reviewed, placed on chart, pt has a copy.
PT and OT evaluations noted - home PT/OT recommended.
Pt referred to [facility] and [facility] at home.
Please fax discharge instructions to [facility] [phone] and [facility] [phone]
D/C plan: return back to [facility] with [facility], [facility], staff and family support. Son to transport at discharge.
CM will follow with discharge plan updates as hospitalization progresses
--- NOTE | 2024-04-23 13:41 | W.PN.ID1 ---
Date of Service
Date of Service: April 23, 2024
Today's Communication
Continue cefepime.
Assessment / Plan
Complicated urinary tract infection secondary to Pseudomonas
AAA
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
RA (on mycophenolate, prednisone and prophylactic Bactrim)
CAD
DM
A-fib
CHF
HTN
Recommendations:
Continue with cefepime (d#5) to complete a 10 day course.
Follow for any additional urinary symptomatology.
Monitor white count and temperature curve.
����������������������������������������������������������
Chief Complaint
-: UTI
Subjective / Review of Systems
Review of Systems: No Fever and No Chills
Vital Signs / Physical Exam
Vital Signs
Vital Signs
Temp Pulse Resp BP Pulse Ox
98.8 F 74 18 124/53 96
04/23/24 12:31 04/23/24 12:31 04/23/24 12:31 04/23/24 12:31 04/23/24 12:31
Physical Exam
Constitutional: No Acute Distress, Comfortable and Non-toxic
Eyes: Sclera Anicteric
Cardiovascular: S1/S2; Negative S3/S4
Pulmonary: Non Labored
Gastrointestinal: Soft, Non Tender and Non Distended
Extremities: Negative Edema
Wound: Other (Inguinal wounds intact.)
Neurological: Awake, Alert and Other (Hard of hearing)
Psychological: Calm
Objective Data
Lab Data
Lab Results
04/23/24 05:27
04/23/24 05:27
PT 15.2 Sec (11.4-14.6) H 04/22/24 04:44
INR 1.22 04/22/24 04:44
APTT 36.4 Sec (23.4-35.0) H 04/22/24 04:44
Estimated Creat Clear 40 ml/min 04/23/24 05:27
Total Bilirubin 0.4 mg/dl (0.2-1.3) 04/19/24 17:14
AST 24 U/L (17-59) 04/19/24 17:14
ALT 21 U/L (0-50) 04/19/24 17:14
Alkaline Phosphatase 64 U/L (38-126) 04/19/24 17:14
Most recent labs reviewed.
Micro Results:
04/19/24 15:36 Urine Culture - Final
Urine Pseudomonas aeruginosa
CC: Greater than 100,000 CFU/ML Pseudomonas aeruginosa
Organism 1 Pseudomonas aeruginosa
M.I.C. RX
--------- ---
Aztreonam 8 S
Cefepime <=2 S
Ceftazidime 4 S
Ciprofloxacin 2 R
Meropenem 4 I
Piperacillin/Tazobactam <=8 S
Tobramycin <=2 S
Outpatient Urine culture - 04/16/2024
Pseudomonas aeruginosa
Amikacin S
Cefepime S
Ceftazidime S
Gentamicin S
Imipenem I
Levofloxacin R
Meropenem I
Piperacillin S
Imaging:
03/03/2024 CT abdomen/pelvis: 1. 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 2. Infrarenal neck measures 2.5 cm in length. No significant angulation of the
infrarenal neck, however there is ulcerated plaque within the infrarenal neck. 3. 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 4. Mild reticular interstitial thickening at the lung bases,
suggestive of mild interstitial fibrosis. 5. Cholelithiasis without evidence of acute cholecystitis.
--- NOTE | 2024-04-23 13:56 | W.PN.UPDATE ---
Update Note
Progress Note Update
This afternoon, before transferring to the second floor. Patient appears to be slightly confused. He is following commands. He is protecting airway. He is afebrile.
He feels extremely weak.
Denies abdominal pain nausea or vomiting.
Hemodynamically stable
Laboratories from this morning unremarkable other than slight increase in creatinine.
Will keep a few hours in the ICU for observation, no current ICU needs.
Will repeat laboratory CBC and BMP.
Hold any sedatives for now.
[2024-04-23 14:26] LABS: % Basophils 0.2 % (0-2); % Eosinophils 0.3 % (0-6); % Immature Granulocytes 0.8 % (0-0.5); % Lymphocytes 8.8 % (20.5-51.1); % Monocytes 8.4 % (1.7-9.3); % Neutrophils 81.5 % (42.2-75.2); Absolute Immature Granulocytes 0.1 10^3/uL (0-0.05); Absolute Lymphocytes 1.1 10^3/uL (1.2-3.4); Absolute Neutrophils 9.8 10^3/uL (1.4-6.5); Hematocrit 26.7 % (39.0-52.0); Hemoglobin 8.6 g/dL (13.0-18.0); Mean Corp Hgb Conc. 32.2 g/dL (33.0-37.0); Mean Corpuscular Hgb 30.4 pg (27.0-31.0); Mean Corpuscular Volume 94.3 fL (80.0-94.0); Mean Platelet Volume 9.9 fL (7.4-10.4); Nucleated Red Blood Cells % 0 % (-); Platelet Count 129 10^3/uL (130-400); Red Blood Cell Count 2.83 10^6/uL (4.70-6.10); Red Cell Dist. Width 16.5 % (11.5-14.5)
[2024-04-23 14:47] LABS: Blood Urea Nitrogen 26 mg/dl (9-20); Carbon Dioxide 25 mmol/L (22-30); Chloride 104 mmol/L (98-107); Estimated Creatinine Clearance 46 ml/min; Glucose 140 mg/dl (70-99); Potassium 3.6 mmol/L (3.5-5.1); Sodium 138 mmol/L (135-145); eGFR 58.53
[2024-04-23] MEDS: ZOSYN 50 IV ×2 (15:48→21:37)
[2024-04-23] MEDS: LYRICA PO ×2 (15:48→21:39)
--- NOTE | 2024-04-23 17:20 | PTCARENOTE ---
Update with Hospitalist. Manager Membership at bedside with patient during assessment. Update with Vascular team and review assessment changes. Follow up bladder scans and labs. Hold in ICU. Follow up events and review with son at bedside. He reports,
patient has these emotional episodes once a month, with episodes of sleep and not wanting to open eyes and all he does is sleep, so much so that eating and drinking can become an issue. Said that they have been better since move from [place].
Continue follow up assessments. Son assisting in Meds and attempts to eat, will continue to follow and update Manager Membership team. Medication adjust as per Hospitalist team and pharmacy.
[2024-04-23 17:33] LABS: Glucose - Point of Care 168 mg/dl (70-99)
[2024-04-23] MEDS: MIRALAX PO (18:10)
[2024-04-23] MEDS: NOVOLOG FLEXPEN-MODERATE RESISTANCE 2 UNITS SC (18:22)
--- NOTE | 2024-04-23 20:00 | PTCARENOTE ---
rec`d pt at 1900. pt wanting to continue to sleep. arousable. pt can be tearful at times. SR on monitor. afebrile. doppler pulses. 2L NC 96%. pt calls to help with urinal. frequent urination of 150cc. foul smelling urine. rt leg wound site, minimal
drainage. SHREYA dressing. 16 left FA and 20Rt W. pt`s hearing aids in charging box. safe environment maintained. call [facility]houn in reach.
[2024-04-23] MEDS: CRESTOR PO (21:30)
[2024-04-23] MEDS: COLACE PO (21:30)
[2024-04-23] MEDS: ELIQUIS 5 MG PO (21:34)
[2024-04-23 22:34] LABS: Glucose - Point of Care 157 mg/dl (70-99)
[2024-04-24] VITALS (16 sets, daily range): BP systolic 94–163; BP diastolic 50–82; PULSE 77–79; O2SAT 100; BMI 28.9
--- NOTE | 2024-04-24 | PTCARENOTE ---
pt reassessed. +pulses via doppler. safe environment maintained. call calhoun in reach.
[2024-04-24] MEDS: ZOLOFT PO (00:18)
[2024-04-24] MEDS: NOVOLOG FLEXPEN-MODERATE RESISTANCE 1 UNITS SC ×2 (00:22→23:00)
[2024-04-24] MEDS: DILAUDID 0.25 MG IV ×2 (02:25→07:40)
[2024-04-24] MEDS: ZOSYN 50 IV ×4 (04:38→20:30)
[2024-04-24 05:06] LABS: Hematocrit 24.7 % (39.0-52.0); Hemoglobin 7.9 g/dL (13.0-18.0); Mean Corpuscular Hgb 29.4 pg (27.0-31.0); Mean Corpuscular Volume 91.8 fL (80.0-94.0); Mean Platelet Volume 10.6 fL (7.4-10.4); Platelet Count 133 10^3/uL (130-400); Red Blood Cell Count 2.69 10^6/uL (4.70-6.10); Red Cell Dist. Width 16.8 % (11.5-14.5); White Blood Cell Count 11.6 10^3/uL (4.8-10.8)
[2024-04-24 05:13] LABS: Blood Urea Nitrogen 25 mg/dl (9-20); Calcium 8.1 mg/dl (8.4-10.2); Carbon Dioxide 23 mmol/L (22-30); Chloride 105 mmol/L (98-107); Estimated Creatinine Clearance 46 ml/min; Glucose 135 mg/dl (70-99); Potassium 3.5 mmol/L (3.5-5.1); Sodium 137 mmol/L (135-145); eGFR 58.53
[2024-04-24] MEDS: SYNTHROID PO (05:55)
[2024-04-24] MEDS: KCL 160 MEQ IV (06:24)
[2024-04-24] MEDS: NOVOLOG FLEXPEN-MODERATE RESISTANCE SC ×2 (07:36→12:00)
[2024-04-24] MEDS: CELLCEPT 1000 MG PO ×2 (07:39→20:30)
[2024-04-24] MEDS: LYRICA 50 MG PO ×3 (07:39→20:34)
[2024-04-24] MEDS: TOPROL XL 25 MG PO (07:39)
[2024-04-24] MEDS: DELTASONE 20 MG PO (07:39)
[2024-04-24] MEDS: FLOMAX 0.4 MG PO (07:40)
[2024-04-24] MEDS: XANAX 0.5 MG PO (07:40)
[2024-04-24] MEDS: JANUVIA 100 MG PO (07:40)
--- NOTE | 2024-04-24 07:52 | W.PN.UPDATE ---
Update Note
Progress Note Update
Seen and evaluated with team. Informed by nursing about patient having some mental status type changes and discomfort. Patient slightly confused this morning. Not completely oriented to place. Notes discomfort in abdomen and feeling like he
wants to have a urinary catheter placed. His abdomen is very soft. But he does respond to deep palpation with grimacing and discomfort. There are no peritoneal signs actively. He does not feel full to the suprapubic region specifically. His
groins are flat bilaterally. Dressing/incision is clean dry and intact bilaterally. Feet are warm with palpable pedal pulses easily.
Labs reviewed.
Plan/ Postop day #2 status post EVAR.
�Unclear exactly etiology of his discomfort and if he is having true abdominal pain. His exam is much less impressive (no peritoneal signs or guarding), but he does respond with tenderness. In between pressing, he does not seem very uncomfortable.
Therefore I do not know that this is pain out of proportion specifically. Regardless given that he had an EVAR, raises some concern for colonic or bowel ischemia especially given that he is on immunosuppressive medications (CellCept and
prednisone). Therefore we will obtain urgent CT angiogram of the abdomen/pelvis to assess for any acute findings in terms of vascular occlusions, and/or bowel issues. In addition we will send lactate level. We did BladderScan at the bedside, and
no significant postvoid residuals currently (about 100 to 200 cc at most).
[2024-04-24 08:02] LABS: Lactic Acid 1.1 mmol/L (0.7-2.0)
--- NOTE | 2024-04-24 08:15 | W.PN.HOSP.TC ---
Today's Communication/Plan
-
see bold
Assessment / Plan
Assessment / Plan
AAA-appreciate vascular surgery input, s/p endovascular repair 04/[address] Berumen. Eliquis resumed, continue statin
Acute toxic metabolic encephalopathy�suspect [facility] delirium, continue supportive care
Acute blood loss anemia-from surgery, monitor hemoglobin. CTA abdomen/pelvis negative for bleed
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 ID following, status post cefepime, currently on Zosyn.
Acute urinary retention -bladder scan protocol
Multivessel ZWL-ivbpwlqkbxww-rnyijscp Eliquis, statin, Toprol XL
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
Acute kidney injury�resolved, hold lisinopril, trend creatinine
Paroxysmal atrial fibrillation-continue Eliquis, metoprolol succinate
Interstitial lung disease-pulmonary fibrosis-not hypoxic on room air at rest.
Rheumatoid arthritis on chronic steroid and associated Bactrim prophylaxis treatments which would continue. Status post stress dose steroids, back on home prednisone dose
Hypothyroidism-continue Synthroid
Insomnia�would hold sleep medications for now due to patient's lethargy
DVT ppx - eliquis
Full code
Dispo - PT rec HH
Total time spent to see the patient on the floor, examine the patient, review data and lab results, discuss treatment plan with patient, nursing staff around 55 minutes.
Physical Exam
General: No acute distress
HEENT: Normocephalic, Atraumatic, EOMI, MMM
Respiratory: Clear to Auscultation bilaterally
Cardiac: Normal S1/S2, Regular Rate and Rhythm
GI: Soft, Nontender, Nondistended, Normal Bowel Sounds
Extremities: No Clubbing, Cyanosis, or Edema
Psych: Intermittently agitated
Anticipated Discharge: > 48 hours
Subjective/Interval History
-
Date of Service: April 24, 2024
Objective Data
-
Labs:
Laboratory Results
04/24/24
04:34
WBC 11.6 H
Hgb 7.9 L
Hct 24.7 L
Plt Count 133
Sodium 137
Potassium 3.5
Chloride 105
Carbon Dioxide 23
BUN 25 H
Creatinine 1.2
Glucose 135 H
Calcium 8.1 L
Vital Signs:
Vital Signs
Temp Pulse Resp BP Pulse Ox
98.6 F 81 22 116/69 96
04/24/24 03:37 04/24/24 07:39 04/24/24 06:15 04/24/24 07:39 04/23/24 20:00
I&O
04/23/24 04/24/24 04/25/24
06:59 06:59 06:59
Intake Total 1510 / 1570 540 / 540
Output Total 1582 / 1632 800 / 800
Balance -72 / -62 -260 / -260
[2024-04-24 08:29] LABS: Glucose - Point of Care 124 mg/dl (70-99)
[2024-04-24] MEDS: SENOKOT PO (08:37)
[2024-04-24] MEDS: COLACE PO (08:37)
[2024-04-24] MEDS: PROTONIX 40 MG PO (08:38)
[2024-04-24] MEDS: ELIQUIS 5 MG PO ×2 (08:39→20:30)
[2024-04-24] MEDS: LASIX 40 MG PO (08:41)
--- NOTE | 2024-04-24 09:01 | PTCARENOTE ---
recd pt 0720 agitated, calling out, crying, complaining, yelling, and accusatory at staff. VS noted. Flatly refusing oxygen, unable to obtain good pulse ox, refusing that as well. Vascular in room, updated, reviewing plan, labs obtained per MD
order. c/o severe back pain, med with dilaudid as ordered. Groin sites as noted, soft hematoma unchanged R groin, L puncture glue intact. For CT scan, took am meds and xanax for agitation, anxiety, and CT tolerance. Images obtained, pt was
restless and crying out in department. Back to ICU 0800, slightly calmer moshe. when undisturbed. pulse ox 84-85%, agreed to wear oxygen mask 4l, placed, sats now 100% when he keeps it on. refusing breakfast. 'If I don't eat, I'll , and that's
what I want.' Support offered and encouragement but pt very determined and refusing meds.
--- NOTE | 2024-04-24 09:26 | W.PN.UPDATE ---
Update Note
Progress Note Update
CT scan images reviewed. Aortic endograft appears well-positioned. I do not see any definitive evidence of endoleak. The celiac, SMA and both renal arteries appear to opacify nicely. There does not appear to be any evidence of occlusive issues
in the visceral vessels. The SUMI does appear to fill likely retrograde. I do not see any definitive colonic thickening to suggest any acute intra-abdominal process or otherwise. However will defer to radiologist regarding the interpretation of
the bowel findings. The bladder is moderately distended. He may benefit from a long urinary cathter.
--- NOTE | 2024-04-24 10:08 | PN.CDI ---
CDI
- -
CDI:
Physician Documentation Request
Admit Date: 04/19/24 18:14
Dear Doctor Do,
Please review the following and provide your response in the progress notes.
Clinical Indicators:
Date of Operation: 04/21/2024
#Post Op Diagnosis: Large infrarenal abdominal aortic aneurysm
#Procedure:
#...1.) Percutaneous endovascular aortic aneurysm repair using Endologix AFX device:
#Estimated Blood Loss: 100 cc
PN, 04/22
#Assessment: UTI and AAA, POD #1 EVAR
Laboratory Tests
04/19/24 04/21/24 04/21/24
17:14 07:35 14:33
Hgb 10.0 L 10.2 L 9.6 L
04/22/24
04:44
Hgb 8.3 L
Laboratory Tests
04/22/24 04/23/24 04/23/24
16:17 05:27 14:13
Hgb 8.7 L 8.4 L 8.6 L
04/24/24
04:34
Hgb 7.9 L
Based on the above and your clinical assessment, please clarify the likely condition/diagnosis evaluated, monitored and/or treated?
Acute blood loss anemia
Acute blood loss anemia with baseline chronic anemia (Specify type)
Other(please specify)
Use of terms such as suspected, likely, concern for, or probable (associated with a specific diagnosis that is being evaluated, monitored, or treated as if it exists) are acceptable and can be coded in the inpatient setting, when documented at the
time of discharge.
Thank you,
June Navarro RN BSN CCDS
CDI Specialist
please contact via tiger text
Please use your independent medical judgment in providing your response.
--- NOTE | 2024-04-24 10:12 | PN.CDI ---
CDI
- -
CDI:
Physician Documentation Request
Admit Date: 04/19/24 18:14
Dear Doctor Do,
Please review the following and provide your response in the progress notes.
Clinical Indicators:
Chris HECTOR, 04/23
#This afternoon, before transferring to the second floor.
#Patient appears to be slightly confused.
#...He is following commands. He is protecting airway. He is afebrile.
#He feels extremely weak.
#Laboratories from this morning unremarkable other than slight increase in creatinine.
#Will keep a few hours in the ICU for observation, no current ICU needs.
04/24/24 09:01 - Patient Care Note
#...recd pt 0720 agitated, calling out, crying, complaining, yelling, and accusatory at staff. #...VS noted.
#Flatly refusing oxygen, unable to obtain good pulse ox, refusing that as well.
#...Vascular in room, updated, reviewing plan, labs obtained per MD order.
#...c/o severe back pain, med with dilaudid as ordered.
#...Groin sites as noted, soft hematoma unchanged R groin, L puncture glue intact.
#For CT scan, took am meds and xanax for agitation, anxiety, and CT tolerance.
#...pt was restless and crying out in department.
#Back to ICU 0800, slightly calmer moshe. when undisturbed.
#...pulse ox 84-85%, agreed to wear oxygen mask 4l, placed, sats now 100%
#...when he keeps it on.
#...refusing breakfast. 'If I don't eat, I'll , and that's what I want.'
#Support offered and encouragement but pt very determined and refusing meds.
Laboratory Tests
04/19/24 04/21/24 04/21/24
17:14 07:35 14:33
Creatinine 1.1 1.0 1.1
04/22/24 04/23/24 04/23/24
04:44 05:27 14:13
Creatinine 1.2 1.4 H 1.2
04/24/24
04:34
Creatinine 1.2
Based on the above and your clinical assessment, please clarify in the Progress Notes and Discharge Summary which, if any of the following, is the most likely etiology of the confusion/altered mental status.
Multifactorial Encephalopathy - such as metabolic derangements, toxic, septic, alcoholic, anoxic, hypertensive etc. due to a specific condition such as UTI, CVA, hyponatremia etc.
Acute Delirium - indicate known or suspected etiology such as postoperative, due to opioids or other drugs etc. Can also indicate unknown or mixed etiologies.
Baseline Dementia - indicate type, such as Alzheimer's, senile, vascular, Lewy body etc., and any associated behavioral disturbances (aggressive, combative or violent behavior) if present
Other (please specify)
Use of terms such as suspected, likely, concern for, or probable (associated with a specific diagnosis that is being evaluated, monitored, or treated as if it exists) are acceptable and can be coded in the inpatient setting, when documented at the
time of discharge.
Thank you,
June Navarro RN BSN CCDS
CDI Specialist
please contact via tiger text
Please use your independent medical judgment in providing your response.
--- NOTE | 2024-04-24 10:50 | W.PN.ID1 ---
Date of Service
Date of Service: April 24, 2024
Today's Communication
Continue antibiotics.
Assessment / Plan
Complicated urinary tract infection secondary to Pseudomonas aeruginosa
AAA
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
RA (on mycophenolate, prednisone and prophylactic Bactrim)
CAD
DM
A-fib
CHF
HTN
Recommendations:
Continue Zosyn (d#6 abx) to complete a 10 day course.
Follow for any additional urinary symptomatology. Patient previously reporting some difficulty with urination. May ultimately require a Berumen catheter, especially if residuals increase.
Monitor white count and temperature curve.
Monitor for ongoing confusion.
����������������������������������������������������������
Chief Complaint
-: UTI
Subjective / Review of Systems
Patient seen and examined. Chart reviewed and events noted. Patient with some increasing confusion yesterday p.m. cefepime discontinued, and patient transition to Zosyn. Nursing notes some ongoing confusion today.
Vital Signs / Physical Exam
Vital Signs
Vital Signs
Temp Pulse Resp BP Pulse Ox
99.8 F 80 17 100/82 77
04/24/24 08:23 04/24/24 09:00 04/24/24 09:00 04/24/24 08:41 04/24/24 08:45
Physical Exam
Constitutional: No Acute Distress, Comfortable and Non-toxic
Eyes: Sclera Anicteric
Cardiovascular: S1/S2; Negative S3/S4
Pulmonary: Non Labored
Gastrointestinal: Soft, Non Tender and Non Distended
Extremities: Negative Edema
Wound: Other (Inguinal wounds intact.)
Psychological: Calm
Objective Data
Lab Data
Lab Results
04/24/24 04:34
04/24/24 04:34
PT 15.2 Sec (11.4-14.6) H 04/22/24 04:44
INR 1.22 04/22/24 04:44
APTT 36.4 Sec (23.4-35.0) H 04/22/24 04:44
Estimated Creat Clear 46 ml/min 04/24/24 04:34
Lactic Acid 1.1 mmol/L (0.7-2.0) 04/24/24 07:37
Total Bilirubin 0.4 mg/dl (0.2-1.3) 04/19/24 17:14
AST 24 U/L (17-59) 04/19/24 17:14
ALT 21 U/L (0-50) 04/19/24 17:14
Alkaline Phosphatase 64 U/L (38-126) 04/19/24 17:14
Most recent labs reviewed.
Micro Results:
04/24/24 07:37 Blood Culture - Pending
Blood/Venous
04/19/24 15:36 Urine Culture - Final
Urine Pseudomonas aeruginosa
Outpatient Urine culture - 04/16/2024
Pseudomonas aeruginosa
Amikacin S
Cefepime S
Ceftazidime S
Gentamicin S
Imipenem I
Levofloxacin R
Meropenem I
Piperacillin S
Imaging:
03/03/2024 CT abdomen/pelvis: 1. 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 2. Infrarenal neck measures 2.5 cm in length. No significant angulation of the
infrarenal neck, however there is ulcerated plaque within the infrarenal neck. 3. 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 4. Mild reticular interstitial thickening at the lung bases,
suggestive of mild interstitial fibrosis. 5. Cholelithiasis without evidence of acute cholecystitis.
[2024-04-24] MEDS: ROXICODONE 5 MG PO (11:40)
--- NOTE | 2024-04-24 11:40 | W.PN.INTV ---
Today's Communication / Plan
Recommendations
Start Risperdal twice a day
Avoid narcotics if possible
Avoid benzodiazepine if possible
Avoid other sedative medications
Will give 1 dose of hydrocortisone 50 mg IV. Continue with prednisone 20 mg otherwise.
Fall precautions
Will continue to redirect
Will consider transfer to telemetry with one-to-one observation later today if stable.
Assessment
-
89-year-old man who came to the emergency room 04/21/2020 for post EVAR. Initially progressed well and on 04/23/2024 developed confusion and delirium. Workup so far has been negative.
Acute delirium: Toxic metabolic since 04/23/2024
Abdominal aortic aneurysm status post EVAR 04/21/2024
Complicated UTI-Pseudomonas urine culture
Conditions present prior admission:
Abdominal aortic aneurysm
Rheumatoid arthritis on MMF/prednisone and prophylactic Bactrim.
Coronary artery disease-multivessel
Type 2 diabetes
Atrial fibrillation-on anticoagulation
Interstitial lung disease/pulmonary fibrosis-no details available on as needed oxygen supplementation
Hypertension
Heart failure
Echocardiogram 03/05/2024: Report reviewed showed ejection fraction 35-40%. Diastolic function indeterminate. Normal right ventricular size and function. No significant valve abnormality. Mild to severe pulmonary hypertension.
History of urinary retention
Assessment and plan:
Doing well postoperative day 3
Unfortunately has developed delirium since 04/23/2020 4 in the afternoon.
Held in the ICU until workup finalized.
-
Laboratories unremarkable.
Renal function improved compared to yesterday.
Afebrile
CT head: Prior CVA noted. No acute abnormalities. Significant atrophy age-appropriate.
CT abdomen pelvis: Preliminarily, no issues with his graft. Official report pending. Abdominal exam is benign.
-
Suspect delirium is multifactorial: Medications(benzodiazepines/narcotics etc.)/hospital delirium/lack of sleep etc.
Will start Risperdal twice a day
Obtain EKG
Supportive care.
Try to avoid sedative and narcotics
Incentive spirometry encouraged
Contimue Physical therapy/Occupational Therapy. As able.
Aspiration precautions
-
Chest x-ray: Bilateral increased interstitial markings lower lobe predominant.Which is chronic.
Continue oxygen to maintain pulse ox above 88%. Patient is chronically on oxygen at home.
Continue baseline 20 mg of prednisone. Will give additional 50 mg of hydrocortisone as a trial.
Continue MMF
Right groin hematoma. Soft. Monitor closely. Stable 04/23/2024. Not significantly tender.
Hb stable.
-
Analgesia with narcotics: Monitor respiratory status closely. Try to minimize as able.
Vascular surgery following-correspondence and operative notes reviewed
Correspondence reviewed, CT abdomen pelvis from 04/24/2024 without acute abnormalities. Graft are patent.
Continue IV antibiotics for Pseudomonas in urine. Complicated UTI
Cefepime transition to Zosyn due to delirium.
Infectious disease following patient
Interstitial lung disease: No details available-used to follow-up in [place]. Patient does have oxygen at home
Appears to be at baseline
Patient is on immunosuppression for rheumatoid arthritis. Cannot rule out connective tissue disease associated ILD.
Chronically on MMF/prednisone
Follow-up with Dr. Elder 01/2024. Workup is ongoing. Records were requested in the outpatient setting from [place].
Continue oxygen supplementation PRN
Hemoglobin stable: Chronic anemia noted. Trending lower, no evidence for bleeding.
Stable hemoglobin
Follow blood sugars-Target blood sugars 140-180.
Insulin supplementation as needed
Systolic cardiomyopathy/atrial fibrillation: Rate controlled.
Appears euvolemic.
Continue cardiac regimen
DVT prophylaxis-eventually to restart anticoagulation when cleared by vascular surgery. Patient is on Eliquis for atrial fibrillation.
-
Diet as tolerated
-
If remains stable later, will consider transition back to telemetry status. Later today per
-
Follow up with Dr. Elder after discharge.
-
Critical care statement: A total of 31 minutes of critical care time was provided for this patient today. This includes management of unstable vital signs, evaluation of the patient at bedside, reviewing the patient's pertinent medical records
including ventilator settings, arterial blood gases, radiographs, microbiology, laboratory evaluations and discussion with primary team, critical care nursing, and respiratory therapy.
Subjective Dataa
Subjective Data
Date of Service:
Date of Service: April 24, 2024
Chief Complaint: [facility] Follow Up (Status post EVAR/delirium)
Subjective:
Unfortunately, delirious since p.m. 04/23/2024.
Confused, restless.
Occasionally following commands.
Review of Systems
General: Other (Unable to obtain due to delirium)
Objective Data
Data Reviewed
Vital Signs / I&O / Oxygen:
Vital Signs
Temp Pulse Resp BP Pulse Ox
99.2 F 80 17 100/82 77
04/24/24 11:20 04/24/24 09:00 04/24/24 09:00 04/24/24 08:41 04/24/24 08:45
Intake and Output
04/23/24 04/24/24 04/25/24
06:59 06:59 06:59
Intake Total 1510 / 1570 540 / 540 310 / 310
Output Total 1582 / 1632 800 / 800 200 / 200
Balance -72 / -62 -260 / -260 110 / 110
SaO2 77
Nasal Cannula flow liters per 2
minute
Physical Exam
General: Comfortable
HEENT: Normocephalic
Cardiovascular: S1-S2
Respiratory: Non-Labored Respirations
GI: Soft, Non Distended and Non Tender
Neurology: Awake, Alert and Other (Confused, intermittently agitated.)
Skin: Warm
Labs/Micro/Reports
Lab Data
04/24/24 04:34
04/24/24 04:34
Microbiology
04/19/24 15:36 Urine Urine Culture - Final
Pseudomonas aeruginosa
[2024-04-24 11:52] LABS: Glucose - Point of Care 142 mg/dl (70-99)
--- NOTE | 2024-04-24 11:56 | W.PN.UPDATE ---
Update Note
Progress Note Update
I personally updated the son at the bedside regarding clinical situation.
He completely understands patient's delirium. Apparently in [place] had similar situation after spinal surgery. It lasted for about 2 to 3 days.
Continue with supportive care for now.
--- NOTE | 2024-04-24 12:45 | PTCARENOTE ---
Several attempts at urinal, bladder scanned as noted, notified, when returned with straight cath, pt able to void 375. worked reluctantly with PT and son assisting, sat on side of bed with much resistance, did not weight bear or get OOB.
returned to bed, demanding urinal and pain pill. no additional void, med with oxy as ordered for back pain. son remains bedside.
--- NOTE | 2024-04-24 14:28 | CM ---
CM following re: discharge planning.
Discussed in Rounds, reviewed pt's chart, met with pt and pt's son Law at bedside.
Per Rounds meeting, pt has developed delirium yesterday in the afternoon, continue supportive care.
Pt's son stated that pt had similar episode in [place] in the past and was able to recover in a few days. pt's son feels that his father will be able to return back to [facility]. Pt's son is notified that pt will be re-evaluated by
PT and OT to confirm a level of care at discharge. Per son, pt was in an acute rehab in [place] and pt had an awful experience.
Awaiting for PT/OT re-evaluation.
D/C plan: return back to [facility] with [facility], staff and family support. PT/OT to confirm.
CM will follow with discharge plan updates as hospitalization progresses
--- NOTE | 2024-04-24 16:12 | W.PN.UPDATE ---
Update Note
Progress Note Update
Continues to be intermittently confused but redirectable.
Afebrile
Hemodynamically stable
Moving 4 extremities
Continue with close observation, fall precautions. Likely patient has hospital/drug-induced delirium.
Will transfer to intermediate care unit.
Oxygen requirements at baseline. Underlying interstitial lung disease stable.
Critical care team will sign off.
Please call pulmonary if any acute respiratory issues arise.
[2024-04-24] MEDS: RISPERDAL 0.25 MG PO (16:58)
[2024-04-24] MEDS: MIRALAX PO (16:59)
[2024-04-24 17:02] LABS: Glucose - Point of Care 233 mg/dl (70-99)
[2024-04-24] MEDS: NOVOLOG FLEXPEN-MODERATE RESISTANCE 3 UNITS SC (17:51)
--- NOTE | 2024-04-24 19:12 | PTCARENOTE ---
ate only fruit cup for dinner but did feed self. turned, repositioned.
--- NOTE | 2024-04-24 20:00 | PTCARENOTE ---
rec`d pt at 1900. pt awake talking to son. pt becomes agitated quickly but able to reorient and becomes thankful for care. SR on monitor. afebrile hr in the 70s. RA 92-94%. pt refuses 2L NC which he wears at baseline at nighttime at home. pt`s son
brought in food for pt since he is a 'picky eater'. pt still denied food. no BM. pt uses urinal- will call out or ring the [facility] for when he needs to urinate. doppler pulses. rt upper groin puncture site eccymotic, no changes from previous shift. 16
left FA and 20 rt W flushed and patent. call [facility] in reach. safe environment maintained. son at bedside.
[2024-04-24] MEDS: CRESTOR 20 MG PO (20:33)
[2024-04-24] MEDS: ZOLOFT 25 MG PO (20:34)
[2024-04-24] MEDS: COLACE 200 MG PO (20:34)
[2024-04-24 21:35] LABS: Glucose - Point of Care 199 mg/dl (70-99)
[2024-04-25] VITALS (19 sets, daily range): BP systolic 86–133; BP diastolic 49–83; PULSE 73; O2SAT 93–97; BMI 28.8
--- NOTE | 2024-04-25 | PTCARENOTE ---
pt reassessed. no changes in pt assessment. call [facility] in reach.
[2024-04-25] MEDS: ZOSYN 50 IV ×4 (03:29→21:33)
--- NOTE | 2024-04-25 04:00 | PTCARENOTE ---
pt`s hearing aids back in, requested by the pt. pt reassessed. no changes in pt assessment. call [facility] in reach.
[2024-04-25] MEDS: SYNTHROID 100 MCG PO (05:21)
[2024-04-25] MEDS: TYLENOL 650 MG PO ×2 (05:21→12:02)
[2024-04-25 05:44] LABS: Hematocrit 23.5 % (39.0-52.0); Hemoglobin 7.6 g/dL (13.0-18.0); Mean Corp Hgb Conc. 32.3 g/dL (33.0-37.0); Mean Corpuscular Hgb 30.6 pg (27.0-31.0); Mean Corpuscular Volume 94.8 fL (80.0-94.0); Mean Platelet Volume 10.1 fL (7.4-10.4); Platelet Count 134 10^3/uL (130-400); Red Blood Cell Count 2.48 10^6/uL (4.70-6.10); Red Cell Dist. Width 16.3 % (11.5-14.5); White Blood Cell Count 11.2 10^3/uL (4.8-10.8)
[2024-04-25 05:50] LABS: Blood Urea Nitrogen 29 mg/dl (9-20); Carbon Dioxide 23 mmol/L (22-30); Chloride 102 mmol/L (98-107); Estimated Creatinine Clearance 37 ml/min; Glucose 130 mg/dl (70-99); Potassium 3.3 mmol/L (3.5-5.1); Sodium 137 mmol/L (135-145); eGFR 44.78
[2024-04-25] MEDS: NOVOLOG FLEXPEN-MODERATE RESISTANCE SC (07:49)
[2024-04-25 07:55] LABS: Glucose - Point of Care 146 mg/dl (70-99)
[2024-04-25] MEDS: RISPERDAL 0.25 MG PO ×2 (08:35→21:32)
[2024-04-25] MEDS: JANUVIA 100 MG PO (08:35)
[2024-04-25] MEDS: ELIQUIS 5 MG PO ×2 (08:35→20:12)
[2024-04-25] MEDS: TOPROL XL 25 MG PO (08:35)
[2024-04-25] MEDS: SENOKOT 8.6 MG PO (08:35)
[2024-04-25] MEDS: PROTONIX 40 MG PO (08:35)
[2024-04-25] MEDS: CELLCEPT 1000 MG PO ×2 (08:36→20:12)
[2024-04-25] MEDS: COLACE 200 MG PO ×2 (08:36→20:12)
[2024-04-25] MEDS: DELTASONE 20 MG PO (08:36)
[2024-04-25] MEDS: FLOMAX 0.4 MG PO (08:36)
[2024-04-25] MEDS: LASIX 40 MG PO (08:36)
[2024-04-25] MEDS: LYRICA 50 MG PO ×3 (08:36→21:32)
[2024-04-25] MEDS: BACTRIM DS 800 MG/160 MG 1 TABLET PO (08:39)
--- NOTE | 2024-04-25 08:43 | W.PN.HOSP.TC ---
Today's Communication/Plan
-
see bold
Assessment / Plan
Assessment / Plan
AAA-appreciate vascular surgery input, s/p endovascular repair 04/[address] Berumen. Eliquis resumed, continue statin
Acute toxic metabolic encephalopathy�suspect [facility] delirium, improved, continue supportive care
Acute blood loss anemia-likely from surgery, Hgb 7.6 today. Check iron studies, B12/folate. For blood transfusion 04/15. CTA abdomen/pelvis negative for bleed
Multivessel CAD
Chest pain
-Check troponins, check EKG
-Appreciate cardiology input, recommend blood transfusion for hemoglobin 7.6 today
-Continue Eliquis, statin, Toprol XL
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 ID following, status post cefepime, currently on Zosyn to complete a 10 day course through 04/28/24.
Acute urinary retention -requiring straight cath, bladder scan protocol, started on Flomax
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
Acute kidney injury�hold lisinopril/bactrim/lasix, trend creatinine. Cr likely will improve with blood transfusion
Hypokalemia�replete
Paroxysmal atrial fibrillation-continue Eliquis, metoprolol succinate
Interstitial lung disease-pulmonary fibrosis-not hypoxic on room air at rest.
Rheumatoid arthritis on chronic steroid and associated Bactrim prophylaxis treatments which would continue. Status post stress dose steroids, back on home prednisone dose
Hypothyroidism-continue Synthroid
Insomnia�would hold sleep medications for now due to patient's lethargy
DVT ppx - eliquis
Full code
Dispo - PT rec HH
Total time spent to see the patient on the floor, examine the patient, review data and lab results, discuss treatment plan with patient, nursing staff around 59 minutes.
Physical Exam
General: No acute distress
HEENT: Normocephalic, Atraumatic, EOMI, MMM
Respiratory: Clear to Auscultation bilaterally
Cardiac: Normal S1/S2, Regular Rate and Rhythm
GI: Soft, Nontender, Nondistended, Normal Bowel Sounds
Extremities: No Clubbing, Cyanosis, or Edema
Psych: Intermittently agitated
Anticipated Discharge: 24 - 48 hours
Subjective/Interval History
-
Date of Service: April 25, 2024
Patient more alert and awake. He complains of chest pain since 4 AM. No fever, no vomiting.
Objective Data
-
Labs:
Laboratory Results
04/25/24
05:15
WBC 11.2 H
Hgb 7.6 L
Hct 23.5 L
Plt Count 134
Sodium 137
Potassium 3.3 L
Chloride 102
Carbon Dioxide 23
BUN 29 H
Creatinine 1.5 H
Glucose 130 H
Calcium 8.0 L
Vital Signs:
Vital Signs
Temp Pulse Resp BP Pulse Ox
98.6 F 74 14 130/73 91
04/25/24 03:23 04/25/24 02:00 04/25/24 02:00 04/25/24 02:00 04/25/24 02:00
I&O
04/24/24 04/25/24 04/26/24
06:59 06:59 06:59
Intake Total 540 / 540 875 / 875
Output Total 800 / 800 2625 / 2625
Balance -260 / -260 -1750 / -1750
--- NOTE | 2024-04-25 09:15 | W.PN.VS ---
Addendum entered and electronically signed by Zachariah Berumen III, MD 04/25/24 19:59:
This patient was seen and examined with TOM Armas. I agree with the history and physical exam as well as the assessment and plan.
Signed:
Zachariah Berumen III, MD
[facility] Vascular Surgery
[phone] (lgce)
Original Note:
Today's Communication / Plan
-
Seen and assessed with Dr. Berumen
Assessment/Plan
-
Assessment: UTI and AAA, POD #3 EVAR, delirium
Plan:
Will need aggressive antibiotic plan for UTI with new graft placement
Ambulate with PT
I will return to replace kaylah today
Discharge planning-will likely require SNF at this time
OK for DC from vasc standpoint
Subjective Data
-
Date of Service: April 25, 2024
Patient seen at bedside this a.m. with Dr. Berumen. No events overnight. Patient much more clear this a.m.
Objective Data
-
Vital Signs
Temp Pulse Resp BP Pulse Ox
98.5 F 73 14 108/63 91
04/25/24 07:30 04/25/24 08:36 04/25/24 02:00 04/25/24 08:36 04/25/24 02:00
Intake and Output
04/24/24 04/25/24 04/26/24
06:59 06:59 06:59
Intake Total 540 / 540 875 / 875
Output Total 800 / 800 2625 / 2625
Balance -260 / -260 -1750 / -1750
Intake:
Oral fluids 390 / 390 665 / 665
IV piggybacks 150 / 150 210 / 210
Output:
Urine, Berumen 350 / 350
Urine, Voided 450 / 450 1850 / 1850
Straight cath output 775 / 775
Lab Results
04/25/24 05:15
04/25/24 05:15
Calcium 8.0 mg/dl (8.4-10.2) L 04/25/24 05:15
Magnesium 2.2 mg/dl (1.6-2.3) 04/22/24 04:44
Total Bilirubin 0.4 mg/dl (0.2-1.3) 04/19/24 17:14
AST 24 U/L (17-59) 04/19/24 17:14
ALT 21 U/L (0-50) 04/19/24 17:14
Alkaline Phosphatase 64 U/L (38-126) 04/19/24 17:14
Total Protein 6.1 g/dl (6.3-8.2) L 04/19/24 17:14
Albumin 3.6 g/dl (3.5-5.0) 04/19/24 17:14
Physical Exam
-
AAOx3, no apparent distress
No tachycardia
No dyspnea
ABD rotund, nondistended, nontender
Right groin dressing CDI, no evidence of edema or hematoma, left groin puncture site CDI Exofin glue intact
Bilateral DP pulses +1 palpable
[2024-04-25] MEDS: KCL 20 MEQ PO (09:16)
--- NOTE | 2024-04-25 09:28 | PTCARENOTE ---
recd 0715 asleep, awakens easily, remains very [place], hearing aids in. bright and interactive. seen by vascular team, L groin site cleaned and redressed by Dr. Berumen. reviewing plan with pt. refusing oxygen at present, sats noted, took pills
easily whole with water. presently sitting upright in bed eating breakfast.
--- NOTE | 2024-04-25 09:37 | W.PN.ID1 ---
Date of Service
Date of Service: April 25, 2024
Today's Communication
Continue Zosyn.
Assessment / Plan
Complicated urinary tract infection secondary to Pseudomonas aeruginosa
AAA
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
RA (on mycophenolate, prednisone and prophylactic Bactrim)
CAD
DM
A-fib
CHF
HTN
Recommendations:
Continue Zosyn (d#7 abx) to complete a 10 day course through 04/28/24.
Urinary retention, straight cath 775 cc this am. May need long.
Monitor white count and temperature curve.
Monitor for ongoing confusion.
Hospitalist made aware of chest pain. Do evaluating pt.
����������������������������������������������������������
Chief Complaint
-: UTI
Subjective / Review of Systems
c/o mid chest pain since this am after straight cath for urine.
No radiation.
Vital Signs / Physical Exam
Vital Signs
Vital Signs
Temp Pulse Resp BP Pulse Ox
98.5 F 70 13 108/63 91
04/25/24 07:30 04/25/24 09:15 04/25/24 09:15 04/25/24 08:36 04/25/24 09:00
Physical Exam
Constitutional: No Acute Distress and Comfortable
Eyes: No Conjunctival Hemorrhage and Sclera Anicteric
Cardiovascular: Regular Rate and S1/S2
Gastrointestinal: Soft, Non Tender and Non Distended
Genito-Urinary: Negative Long
Extremities: Negative Edema
Neurological: Awake and Alert
Objective Data
Lab Data
Lab Results
04/25/24 05:15
04/25/24 05:15
PT 15.2 Sec (11.4-14.6) H 04/22/24 04:44
INR 1.22 04/22/24 04:44
APTT 36.4 Sec (23.4-35.0) H 04/22/24 04:44
Estimated Creat Clear 37 ml/min 04/25/24 05:15
Lactic Acid 1.1 mmol/L (0.7-2.0) 04/24/24 07:37
Total Bilirubin 0.4 mg/dl (0.2-1.3) 04/19/24 17:14
AST 24 U/L (17-59) 04/19/24 17:14
ALT 21 U/L (0-50) 04/19/24 17:14
Alkaline Phosphatase 64 U/L (38-126) 04/19/24 17:14
Most recent labs reviewed.
Micro Results:
04/25/24 05:15 Blood Culture - Pending
Blood/Venous
04/24/24 07:37 Blood Culture - Preliminary
Blood/Venous No Growth in 24 hours- Final report to follow
04/19/24 15:36 Urine Culture - Final
Urine Pseudomonas aeruginosa
Outpatient Urine culture - 04/16/2024
Pseudomonas aeruginosa
Amikacin S
Cefepime S
Ceftazidime S
Gentamicin S
Imipenem I
Levofloxacin R
Meropenem I
Piperacillin S
Imaging:
03/03/2024 CT abdomen/pelvis: 1. 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 2. Infrarenal neck measures 2.5 cm in length. No significant angulation of the
infrarenal neck, however there is ulcerated plaque within the infrarenal neck. 3. 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 4. Mild reticular interstitial thickening at the lung bases,
suggestive of mild interstitial fibrosis. 5. Cholelithiasis without evidence of acute cholecystitis.
Care Review
Plan reviewed with: Physician (Dr. Tereso Hodges)
[2024-04-25 12:23] LABS: Fibrinogen 704 MG/DL (199-459)
[2024-04-25 12:26] LABS: Glucose - Point of Care 242 mg/dl (70-99)
[2024-04-25 12:30] LABS: Iron 28 ug/dl (49-181); LDH 173 U/L (120-246)
[2024-04-25 12:35] LABS: Troponin I 0.032 ng/ml
[2024-04-25] MEDS: NOVOLOG FLEXPEN-MODERATE RESISTANCE 3 UNITS SC ×2 (12:51→22:24)
--- NOTE | 2024-04-25 13:06 | CON.CAR ---
Addendum entered and electronically signed by George Parker MD 04/25/24 15:12:
I saw and examined the patient.
The MEDICATION ASSISTANT's note was reviewed and I agree with the note.
89-year-old male with a history of multivessel coronary artery disease, ischemic cardiomyopathy with ejection fraction 35 to 40%, paroxysmal atrial fibrillation who underwent treatment of AAA. Status post EVAR 04/21/[address] Berumen. Consult
requested for some chest discomfort. He states he has had symptoms for hours and they started about 4 AM when I went to see him he was actually sleeping and quite comfortable he states if he takes a deep breath he has some discomfort down by the
lower portion of the sternum towards the epigastrium. Pain is clearly worse with inspiration he also has some discomfort with palpation of the epigastrium but no pain with palpation of the sternum. Symptoms worsening with respiration would be
atypical for coronary ischemia. He does have some epigastric discomfort symptoms which may contribute to some of these chest symptoms as well. However patient does have underlying CAD and does have potential for angina. Limited room for titrating
meds due to his blood pressure.
Of note patient has significant anemia with a hemoglobin of 7.6.
-Follow serial troponins
-Continue beta-eugene and aspirin
-Would recommend additional treatment of anemia which may decrease the likelihood of angina. Transfusion with PRBCs recommended. Reviewed with primary team and vascular.
-Defer to primary team and vascular regarding epigastric discomfort.
Original Note:
Consultation
Consultation Request
Date/Time Consultation Requested: 04/25/24 11:30a
Date/Time Consultation Performed: 04/25/24 12:15p
Requesting Provider: Dr. Hodges
Performing Provider: TOM Qureshi for Dr. Parker
Reason for Consultation: chest pain
Medical History
-
Chief Complaint: urinary frequency and dysuria
History of Present Illness:
Mr. Enriquez is an 89 yo male with paroxysmal atrial fibrillation on Eliquis, interstitial lung disease on nocturnal oxygen, AAA 6.4 cm s/p EVAR 04/21/[address] Berumen, chronic osteomyelitis, HLD, HTN, RA, ICM EF 35-40% and CAD (severe multivessel disease
with medical therapy), who presented to the ER 04/19/24 with dysuria. He is admitted to the hospitalist service for UTI. He underwent EVAR for AAA on 04/21/[address] Berumen. Cardiology was consulted for chest pain today. He c/o midsternal chest pain
that began today while lying in bed, it is occurs with inspiration, worse with deep inspiration. There are no associated symptoms.
Past Medical History
Past Medical History: Other (as above)
Past Surgical History: Other (as above)
Social History
Tobacco: Former Smoker
Alcohol: None
Living: Assisted Living
Employment: Retired
Family History
Family History: Reviewed & Not Pertinent
Allergies / Home Medications
Allergy/AdvReac Type Severity Reaction Status Date / Time
codeine Allergy Vomiting Verified 04/19/24 15:29
�Medication �Instructions �Recorded �Confirmed �Type
alogliptin 25 mg tablet 25 mg PO DAILY Diabetes 03/03/24 04/19/24 History
alprazolam 0.5 mg tablet 0.5 mg PO PRN PRN anxiety 03/03/24 04/19/24 History
docusate sodium 100 mg tablet 200 mg PO BID Constipation 03/03/24 04/19/24 History
furosemide 40 mg tablet 40 mg PO DAILY Fluid 03/03/24 04/19/24 History
Retention/Swelling
levothyroxine 100 mcg capsule 100 mcg PO DAILY Thyroid 03/03/24 04/19/24 History
metoprolol succinate 25 mg 25 mg PO DAILY Heart 03/03/24 04/19/24 History
tablet,extended release 24 hr Disease/Condition
mycophenolate mofetil 500 mg tablet 1,000 mg PO BID IMMUNOSUPRESSANT 03/03/24 04/19/24 History
nitroglycerin 0.4 mg sublingual 0.4 mg sublingual [id number] PRN 03/03/24 04/19/24 History
tablet angina
prednisone 20 mg tablet 20 mg PO DAILY Anti-Inflammatory 03/03/24 04/19/24 History
pregabalin 50 mg capsule 50 mg PO TID Neurological Condition 03/03/24 04/19/24 History
rosuvastatin 20 mg tablet 20 mg PO HS High Cholesterol 03/03/24 04/19/24 History
sennosides 8.6 mg tablet (senna) 8.6 mg PO DAILY Constipation 03/03/24 04/19/24 History
sertraline 25 mg tablet 25 mg PO HS Depression 03/03/24 04/19/24 History
sulfamethoxazole 800 1 tab PO MOWEFR Infection 03/03/24 04/19/24 History
mg-trimethoprim 160 mg tablet
Del Menstrual 50 Plus 1 tab PO DAILY Supplement 04/10/24 04/19/24 History
cephalexin 500 mg capsule 500 mg PO TID Infection 04/10/24 04/19/24 History
glucosamine 750 gr-icdovtplqil-ypd 1 tab PO DAILY Supplement 04/10/24 04/19/24 History
no1 644 mg-C 30 mg-nissa 1 mg
tablet (Osteo Bi-Flex Triple
Strength)
lisinopril 5 mg tablet 5 mg PO DAILY Blood Pressure 04/10/24 04/19/24 History
zinc oxide 12 % topical cream 1 applic topical BID Buttock wound 04/10/24 04/19/24 History
([place] Protect (zinc oxide))
zinc oxide 12 % topical cream 1 applic topical PRN PRN Buttock 04/10/24 04/19/24 History
([place] Protect (zinc oxide)) wound
apixaban 5 mg tablet (Eliquis) 5 mg PO .SEE BELOW AFib 04/19/24 04/19/24 History
Review of Systems
-
History Source: Patient
All other systems: Negative unless noted
Physical Exam
Vital Signs
Temp Pulse Resp BP Pulse Ox
98.5 F 75 18 103/51 77
04/25/24 11:52 04/25/24 10:00 04/25/24 10:00 04/25/24 10:00 04/25/24 09:44
Lab Results
04/25/24 05:15
04/25/24 05:15
Troponin I 0.032 ng/ml 04/25/24 11:54
Physical Exam
General: Well Developed and No Apparent Distress
HEENT: Normocephalic, Anicteric and Other (extremely hard of hearing)
Respiratory: Clear and Non Labored Respirations
Cardiac: S1/S2 and Regular Rhythm
Breast: Deferred by me
GI: Soft, Non Tender, Non Distended and Normal Bowel Sounds
Rectal: Deferred by Provider
Genito-urinary: No Costovertebral Tender
Musculoskeletal: No Clubbing and No Cyanosis
Skin: Warm and Dry
Neuro: AO x 3
Psych: Calm
Impression / Plan
-
Chest pain - likely musculoskeletal as it occurs with deep inspiration.
- troponin 0.032, EKG w/o ischemia.
- he has known severe multivessel disease on cath 03/07/24, medical management.
- titration of medical therapy is limited by baseline hypotension.
CAD - severe known CAD on cath 03/07/24.
- medical therapy for his CAD as CABG is not a viable option given his age and comorbidities and the RCA appears untreatable.
- Toprol, Eliquis for PAF and Crestor.
Anemia - acute post-op.
- hgb down to 7.6 today.
- consider transfusion.
Paroxysmal atrial fibrillation - stable in NSR.
- continue metoprolol succinate.
- oral anticoagulation: Apixaban 5 mg twice daily, but now creatinine is 1.5 and therefore dose should be 2.5mg BID.
- [id number]: Score at least 6 (Heart failure, HTN, age 75 or more, Diabetes Mellitus, Vascular disease).
HFrEF - chronic.
- ischemic cardiomyopathy (LVEF 35-40%).
- euvolemic, continue GDMT as tolerated.
- Lisinopril on hold given hypotension, consider MRA as an outpatient, SGLT2 is affordable but he has a UTI this admission so holding off.
PAD - AAA 6.4 cm.
- s/p EVAR 04/21/[address] Berumen.
Pseudomonas UTI - per primary.
Hypothyroidism - stable on levothyroxine.
Data Reviewed
-
EKG: Tracing Personally Visualized and interpreted (NSR 74 bpm)
Medical Tests (Nuc Med, Echo etc): Report Reviewed by me (cath 03/07/24 as above)
Labs: Labs Reviewed by me
Old Records: Reviewed
[2024-04-25 14:00] LABS: Folate > 20.0 ng/ml (2.76-20); Vitamin B12 723 pg/ml (239-931)
--- NOTE | 2024-04-25 15:15 | TRANSFER ---
SHREYA drain changed by vascular team. blood infusing. report given to next RN, taken by wc by RN to new room, settled. pink transfusion record in progress, handed off. pt in good spirits.
--- NOTE | 2024-04-25 15:30 | PTCARENOTE ---
Received pt to 2N telemetry, 1 unit PRBC infusing, VSS, pt ambulated from stretcher, resting comfortably in bed with call calhoun and son at bedside.
--- NOTE | 2024-04-25 15:41 | W.PN.UPDATE ---
Update Note
Progress Note Update
Lanie dressing changed at bedside patient tolerated well, educated patient on how to remove when he is discharged. Instructions added to chart. [place] well-approximated with no drainage
--- NOTE | 2024-04-25 17:24 | PTCARENOTE ---
1 unit of PRBC finished infusing. Pt transferred to during infusion so PRODUCTION MACHINE OPERATOR used pink sheet for documentation. Copy sent to lab, unit finished infusing at 1651. VSS as follows: 97.8 oral/67 HR/17 resp/124/58 right upper arm/ 94% spo2 on room
air. Second unit of PRBC ordered, see TAR.
[2024-04-25 17:32] LABS: Glucose - Point of Care 322 mg/dl (70-99)
[2024-04-25] MEDS: MIRALAX 17 GRAMS PO (17:34)
[2024-04-25] MEDS: NOVOLOG FLEXPEN-MODERATE RESISTANCE 7 UNITS SC (17:36)
--- NOTE | 2024-04-25 18:35 | PTCARENOTE ---
Pt needed to be bladder scanned per protocol at 1800, pt scanned for 514, this RN attempted to straight cath with no success, just a trickle of blood came out on the tubing when pulled out. made aware, advised to administer PRN xanax and
reattempt afterwards. No new orders at this time.
[2024-04-25] MEDS: XANAX 0.5 MG PO (18:40)
--- NOTE | 2024-04-25 19:14 | CM ---
patient is sp aaa repair pod#3,cont iv zosyn for uti,has kaylah dressing,sating 97% on ra,seen by therapy who rec snf.spoke with son westley who wants patient to return to the [facility].he is not ready to give choices for snf loc at this time.plan
return to [facility] with [facility] care vn vs snf placeement.
[2024-04-25] MEDS: CRESTOR 20 MG PO (21:32)
[2024-04-25] MEDS: ZOLOFT 25 MG PO (21:33)
[2024-04-25 22:01] LABS: Glucose - Point of Care 217 mg/dl (70-99)
--- NOTE | 2024-04-25 22:44 | PTCARENOTE ---
patient to receive another unit of PRBC. consent checked and noted to be dated 03/13/24, Lilia Hobson notified to obtain new consent
[2024-04-26 01:40] VITALS: BP 115/50
[2024-04-26] MEDS: ZOSYN 50 IV ×4 (03:09→21:20)
[2024-04-26 03:21] VITALS: BP 129/55
[2024-04-26] MEDS: SYNTHROID 100 MCG PO (05:14)
[2024-04-26 05:35] VITALS: BMI 29.4
[2024-04-26 07:10] VITALS: BP 130/56
[2024-04-26 07:58] LABS: Glucose - Point of Care 128 mg/dl (70-99)
--- NOTE | 2024-04-26 08:04 | W.PN.HOSP.TC ---
Today's Communication/Plan
-
see bold
Assessment / Plan
Assessment / Plan
AAA-appreciate vascular surgery input, s/p endovascular repair 04/[address] Berumen. Eliquis resumed, continue statin. Follow-up with Dr. Berumen in the office.
Acute toxic metabolic encephalopathy�suspect hospital delirium, improved, continue supportive care
Acute blood loss anemia-likely from surgery. Hemoglobin 9.1 status post 2 units packed red blood cells 04/25 for Hgb 7.6 today. CTA abdomen/pelvis negative for bleed
Multivessel CAD
Chest pain
-Appreciate cardiology input, recommend maintaining hemoglobin greater than 8
-Continue Eliquis, statin, Toprol XL
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 ID following, status post cefepime, currently on Zosyn to complete a 10 day course through 04/28/24.
Acute urinary retention -requiring straight cath, bladder scan protocol, started on Flomax
Chronic heart failure with reduced EF and ischemic elluzmffhvdhlk-hobalxlives-wqsn lisinopril, continue Lasix
Acute kidney injury�hold lisinopril/bactrim/lasix, trend creatinine.
Hypokalemia�replete
Paroxysmal atrial fibrillation-continue Eliquis, metoprolol succinate
Interstitial lung disease-pulmonary fibrosis-not hypoxic on room air at rest.
Rheumatoid arthritis on chronic steroid and associated Bactrim prophylaxis treatments which would continue. Status post stress dose steroids, back on home prednisone dose
Hypothyroidism-continue Synthroid
Insomnia�would hold sleep medications for now due to patient's lethargy
DVT ppx - eliquis
Full code
Dispo - PT rec SNF, pt wishes to go back to assisted living
Total time spent to see the patient on the floor, examine the patient, review data and lab results, discuss treatment plan with patient, nursing staff around 52 minutes.
Physical Exam
General: No acute distress
HEENT: Normocephalic, Atraumatic, EOMI, MMM
Respiratory: Clear to Auscultation bilaterally
Cardiac: Normal S1/S2, Regular Rate and Rhythm
GI: Soft, Nontender, Nondistended, Normal Bowel Sounds
Extremities: No Clubbing, Cyanosis, or Edema
Psych: Intermittently agitated
Anticipated Discharge: > 48 hours
Subjective/Interval History
-
Date of Service: April 26, 2024
Patient feels better today. States he was able to void. Chest pain resolved. He is more awake and alert. No fever, no vomiting.
Objective Data
-
Labs:
Laboratory Results
04/26/24
06:00
WBC Pending
Hgb Pending
Hct Pending
Plt Count Pending
Sodium Pending
Potassium Pending
Chloride Pending
Carbon Dioxide Pending
BUN Pending
Creatinine Pending
Glucose Pending
Calcium Pending
Total Bilirubin Pending
AST Pending
ALT Pending
Alkaline Phosphatase Pending
Vital Signs:
Vital Signs
Temp Pulse Resp BP Pulse Ox
97.7 F 65 16 129/55 98
04/26/24 03:21 04/26/24 03:21 04/26/24 03:21 04/26/24 03:21 04/26/24 03:21
I&O
04/25/24 04/26/24 04/27/24
06:59 06:59 06:59
Intake Total 875 / 875 1930 / 1930
Output Total 2625 / 2625 1800 / 1800
Balance -1750 / -1750 130 / 130
[2024-04-26] MEDS: NOVOLOG FLEXPEN-MODERATE RESISTANCE SC (08:38)
[2024-04-26] MEDS: CELLCEPT 1000 MG PO ×2 (08:39→19:51)
[2024-04-26] MEDS: RISPERDAL 0.25 MG PO ×2 (08:40→19:49)
[2024-04-26] MEDS: ELIQUIS 5 MG PO ×2 (08:40→19:50)
[2024-04-26] MEDS: DELTASONE 20 MG PO (08:40)
[2024-04-26] MEDS: JANUVIA 100 MG PO (08:40)
[2024-04-26] MEDS: PROTONIX 40 MG PO (08:40)
[2024-04-26] MEDS: FLOMAX 0.4 MG PO (08:41)
[2024-04-26] MEDS: SENOKOT 8.6 MG PO (08:41)
[2024-04-26] MEDS: COLACE 200 MG PO ×2 (08:41→19:50)
[2024-04-26] MEDS: TOPROL XL 25 MG PO (08:41)
[2024-04-26] MEDS: LYRICA 50 MG PO ×3 (08:41→21:19)
--- NOTE | 2024-04-26 09:02 | W.PN.VS ---
Today's Communication / Plan
-
.
Assessment/Plan
-
Assessment: POD #5 EVAR
Plan:
Bowel regimen
ABX
Cardiology f/u
D/C planning. F/U with me in the office 2 weeks post DC
Subjective Data
-
Date of Service: April 26, 2024
Sitting up in bed
Comfortable
Eating b'fast
No abd pain
No chest pain
Some urinary retention
Wants to have a BM. Asking for laxative
Objective Data
-
Vital Signs
Temp Pulse Resp BP Pulse Ox
97.8 F 66 17 130/56 97
04/26/24 07:10 04/26/24 08:41 04/26/24 07:10 04/26/24 08:41 04/26/24 07:10
Intake and Output
04/25/24 04/26/24 04/27/24
06:59 06:59 06:59
Intake Total 875 / 875 1930 / 1930
Output Total 2625 / 2625 1800 / 1800
Balance -1750 / -1750 130 / 130
Intake:
Oral fluids 665 / 665 1080 / 1080
IV piggybacks 210 / 210 100 / 100
Blood products 500 / 500
Blood Product Amount Infused ( 250 / 250
mL)
Packed Rbc Leukoreduced Unit 250 / 250
[id number]
Output:
Urine, Berumen 800 / 800
Urine, Voided 1850 / 1850 200 / 200
Straight cath output 775 / 775 800 / 800
Calcium 8.0 mg/dl (8.4-10.2) L 04/25/24 05:15
Magnesium 2.2 mg/dl (1.6-2.3) 04/22/24 04:44
Total Bilirubin 0.4 mg/dl (0.2-1.3) 04/19/24 17:14
AST 24 U/L (17-59) 04/19/24 17:14
ALT 21 U/L (0-50) 04/19/24 17:14
Alkaline Phosphatase 64 U/L (38-126) 04/19/24 17:14
Total Protein 6.1 g/dl (6.3-8.2) L 04/19/24 17:14
Albumin 3.6 g/dl (3.5-5.0) 04/19/24 17:14
Physical Exam
-
Comfortable
Alert/oriented
No distress
Non labored breathing
Abd soft
Incision clean/dry right groin
[2024-04-26] MEDS: CITROMA 300 ML PO (09:34)
[2024-04-26 09:49] LABS: ALT (SGPT) 17 U/L (0-50); AST (SGOT) 33 U/L (17-59); Alkaline Phosphatase 65 U/L (38-126); Blood Urea Nitrogen 31 mg/dl (9-20); Calcium 8.1 mg/dl (8.4-10.2); Carbon Dioxide 24 mmol/L (22-30); Chloride 102 mmol/L (98-107); Direct Bilirubin 0.3 mg/dl (0.0-0.4); Estimated Creatinine Clearance 35 ml/min; Glucose 115 mg/dl (70-99); Magnesium 2.6 mg/dl (1.6-2.3); Potassium 3.2 mmol/L (3.5-5.1); Sodium 137 mmol/L (135-145); Total Bilirubin 0.7 mg/dl (0.2-1.3); Total Protein 5.6 g/dl (6.3-8.2); eGFR 41.44
[2024-04-26 11:05] VITALS: BP 149/77
--- NOTE | 2024-04-26 11:12 | W.PN.ID1 ---
Date of Service
Date of Service: April 26, 2024
Today's Communication
Continue Zosyn through 04/28.
Assessment / Plan
Complicated urinary tract infection secondary to Pseudomonas aeruginosa
AAA
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
RA (on mycophenolate, prednisone and prophylactic Bactrim)
CAD
DM
A-fib
CHF
HTN
Recommendations:
Confusion resolved off cefepime.
Continue Zosyn (d#8 abx) to complete a 10 day course through 04/28/24.
Explained to son at bedside that there is no oral abx option. He needs to stay and complete Zosyn through 04/28/24 for complicated UTI.
No discharge until 04/29/24. Son agreed; he will persuade patient to stay in hospital until completion of abx.
Follow PVR
Monitor white count
����������������������������������������������������������
Chief Complaint
-: UTI
Subjective / Review of Systems
Pt sleeping.
Son at bedside.
Per hospitalist, pt insisting on going home.
Vital Signs / Physical Exam
Vital Signs
Vital Signs
Temp Pulse Resp BP Pulse Ox
97.8 F 66 17 130/56 97
04/26/24 07:10 04/26/24 08:41 04/26/24 07:10 04/26/24 08:41 04/26/24 07:10
Physical Exam
Constitutional: No Acute Distress
Pulmonary: Clear (anteriorly)
Genito-Urinary: Negative Berumen or CVA Tenderness
Objective Data
Lab Data
Lab Results
04/26/24 08:20
PT 15.2 Sec (11.4-14.6) H 04/22/24 04:44
INR 1.22 04/22/24 04:44
APTT 36.4 Sec (23.4-35.0) H 04/22/24 04:44
Estimated Creat Clear 35 ml/min 04/26/24 08:20
Lactic Acid 1.1 mmol/L (0.7-2.0) 04/24/24 07:37
Total Bilirubin 0.7 mg/dl (0.2-1.3) 04/26/24 08:20
AST 33 U/L (17-59) 04/26/24 08:20
ALT 17 U/L (0-50) 04/26/24 08:20
Alkaline Phosphatase 65 U/L (38-126) 04/26/24 08:20
Most recent labs reviewed.
Micro Results:
04/24/24 07:37 Blood Culture - Preliminary
Blood/Venous No Growth in 48 hours- Final report to follow
04/25/24 05:15 Blood Culture - Preliminary
Blood/Venous No Growth in 24 hours- Final report to follow
04/19/24 15:36 Urine Culture - Final
Urine Pseudomonas aeruginosa
Outpatient Urine culture - 04/16/2024
Pseudomonas aeruginosa
Amikacin S
Cefepime S
Ceftazidime S
Gentamicin S
Imipenem I
Levofloxacin R
Meropenem I
Piperacillin S
Imaging:
03/03/2024 CT abdomen/pelvis: 1. 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 2. Infrarenal neck measures 2.5 cm in length. No significant angulation of the
infrarenal neck, however there is ulcerated plaque within the infrarenal neck. 3. 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 4. Mild reticular interstitial thickening at the lung bases,
suggestive of mild interstitial fibrosis. 5. Cholelithiasis without evidence of acute cholecystitis.
Care Review
Plan reviewed with: Physician (Dr. Tereso Hodges)
[2024-04-26 12:01] LABS: Glucose - Point of Care 225 mg/dl (70-99)
[2024-04-26 12:12] LABS: Hematocrit 27.7 % (39.0-52.0); Hemoglobin 9.1 g/dL (13.0-18.0); Mean Corp Hgb Conc. 32.9 g/dL (33.0-37.0); Mean Corpuscular Hgb 28.9 pg (27.0-31.0); Mean Corpuscular Volume 87.9 fL (80.0-94.0); Mean Platelet Volume 10.1 fL (7.4-10.4); Platelet Count 145 10^3/uL (130-400); Red Blood Cell Count 3.15 10^6/uL (4.70-6.10); Red Cell Dist. Width 16.1 % (11.5-14.5); White Blood Cell Count 9.5 10^3/uL (4.8-10.8)
[2024-04-26] MEDS: NOVOLOG FLEXPEN-MODERATE RESISTANCE 3 UNITS SC (13:53)
[2024-04-26] MEDS: KCL 40 MEQ PO (13:55)
[2024-04-26 15:15] VITALS: BP 143/75
[2024-04-26 16:41] LABS: Glucose - Point of Care 191 mg/dl (70-99)
[2024-04-26] MEDS: NOVOLOG FLEXPEN-MODERATE RESISTANCE 1 UNITS SC (17:27)
[2024-04-26] MEDS: SENOKOT 17.2 MG PO (19:49)
[2024-04-26] MEDS: MIRALAX PO ×2 (19:52→20:02)
[2024-04-26] MEDS: TYLENOL 650 MG PO (21:19)
[2024-04-26] MEDS: ZOLOFT 25 MG PO (21:19)
[2024-04-26] MEDS: CRESTOR 20 MG PO (21:19)
[2024-04-26 21:26] LABS: Glucose - Point of Care 322 mg/dl (70-99)
[2024-04-26] MEDS: NOVOLOG FLEXPEN-MODERATE RESISTANCE 7 UNITS SC (21:27)
[2024-04-26 23:01] VITALS: BP 142/66
[2024-04-27] MEDS: ZOSYN 50 IV ×4 (03:18→22:04)
[2024-04-27] MEDS: SYNTHROID 100 MCG PO (05:29)
[2024-04-27 06:00] VITALS: BMI 29.6
[2024-04-27 06:39] LABS: Hematocrit 28.3 % (39.0-52.0); Hemoglobin 9.3 g/dL (13.0-18.0); Mean Corp Hgb Conc. 32.9 g/dL (33.0-37.0); Mean Corpuscular Hgb 30.1 pg (27.0-31.0); Mean Corpuscular Volume 91.6 fL (80.0-94.0); Mean Platelet Volume 9.7 fL (7.4-10.4); Platelet Count 130 10^3/uL (130-400); Red Blood Cell Count 3.09 10^6/uL (4.70-6.10); Red Cell Dist. Width 15.9 % (11.5-14.5); White Blood Cell Count 6.6 10^3/uL (4.8-10.8)
[2024-04-27 06:59] LABS: Blood Urea Nitrogen 29 mg/dl (9-20); Calcium 8.5 mg/dl (8.4-10.2); Carbon Dioxide 26 mmol/L (22-30); Chloride 104 mmol/L (98-107); Estimated Creatinine Clearance 43 ml/min; Glucose 154 mg/dl (70-99); Potassium 3.7 mmol/L (3.5-5.1); Sodium 141 mmol/L (135-145); eGFR 53.17
--- NOTE | 2024-04-27 07:07 | W.PN.HOSP.TC ---
Today's Communication/Plan
-
see bold
Assessment / Plan
Assessment / Plan
AAA-appreciate vascular surgery input, s/p endovascular repair 04/[address] Berumen. Eliquis resumed, continue statin. Follow-up with Dr. Berumen in the office
Acute toxic metabolic encephalopathy�suspect hospital delirium, improved, continue supportive care
Acute blood loss anemia-likely from surgery. Hemoglobin 9.3 today, was 9.1 status post 2 units packed red blood cells 04/25 for Hgb 7.6 today. CTA abdomen/pelvis negative for bleed
Multivessel CAD
Chest pain
-Appreciate cardiology input, recommend maintaining hemoglobin greater than 8
-Continue Eliquis, statin, Toprol XL
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 ID following, status post cefepime, currently on Zosyn to complete a 10 day course through 04/28/24.
Acute urinary retention -requiring straight cath, bladder scan protocol, started on Flomax. Now voiding
Chronic heart failure with reduced EF and ischemic voujvruivxktyu-kyzflvlebdl-zqgr lisinopril, continue Lasix
Acute kidney injury�hold lisinopril, trend creatinine.
Hypokalemia�repleted and resolved
Paroxysmal atrial fibrillation-continue Eliquis, metoprolol succinate
Interstitial lung disease-pulmonary fibrosis-not hypoxic on room air at rest.
Type 2 diabetes with hyperglycemia�continue Januvia, carb controlled diet, sliding scale insulin. Add NovoLog 3 units AC 3 times daily for hyperglycemia from steroids
Rheumatoid arthritis on chronic steroid and associated Bactrim prophylaxis treatments which would continue. Status post stress dose steroids, back on home prednisone dose
Hypothyroidism-continue Synthroid
Insomnia�would hold sleep medications for now due to patient's lethargy
DVT ppx - eliquis
Full code
Dispo - PT rec SNF, pt wishes to go back to assisted living
Total time spent to see the patient on the floor, examine the patient, review data and lab results, discuss treatment plan with patient, nursing staff around 50 minutes.
Physical Exam
General: No acute distress
HEENT: Normocephalic, Atraumatic, EOMI, MMM
Respiratory: Clear to Auscultation bilaterally
Cardiac: Normal S1/S2, Regular Rate and Rhythm
GI: Soft, Nontender, Nondistended, Normal Bowel Sounds
Extremities: No Clubbing, Cyanosis, or Edema
Psych: Intermittently agitated
Anticipated Discharge: 24 - 48 hours
Subjective/Interval History
-
Date of Service: April 27, 2024
Patient reports being able to void. No chest pain, no shortness of breath. No fever, no vomiting.
Objective Data
-
Labs:
Laboratory Results
04/27/24
06:05
WBC 6.6
Hgb 9.3 L
Hct 28.3 L
Plt Count 130
Sodium 141
Potassium 3.7
Chloride 104
Carbon Dioxide 26
BUN 29 H
Creatinine 1.3
Glucose 154 H
Calcium 8.5
Vital Signs:
Vital Signs
Temp Pulse Resp BP Pulse Ox
98.0 F 65 16 142/66 95
04/26/24 23:01 04/26/24 23:01 04/26/24 23:01 04/26/24 23:01 04/26/24 23:01
I&O
04/26/24 04/27/24 04/28/24
06:59 06:59 06:59
Intake Total 1930 / 1930 1370 / 1370
Output Total 1800 / 1800 1225 / 1225
Balance 130 / 130 145 / 145
[2024-04-27 07:10] VITALS: BP 152/73
[2024-04-27 07:26] LABS: Glucose - Point of Care 147 mg/dl (70-99)
[2024-04-27] MEDS: NOVOLOG FLEXPEN-MODERATE RESISTANCE SC (08:19)
[2024-04-27] MEDS: NOVOLOG FLEXPEN 3 UNITS SC ×3 (08:19→17:04)
[2024-04-27] MEDS: DELTASONE 20 MG PO (08:20)
[2024-04-27] MEDS: MIRALAX 17 GRAMS PO (08:20)
[2024-04-27] MEDS: CELLCEPT 1000 MG PO ×2 (08:20→20:26)
[2024-04-27] MEDS: FLOMAX 0.4 MG PO (08:20)
[2024-04-27] MEDS: COLACE 200 MG PO ×2 (08:20→20:27)
[2024-04-27] MEDS: PROTONIX 40 MG PO (08:20)
[2024-04-27] MEDS: TOPROL XL 25 MG PO (08:20)
[2024-04-27] MEDS: ELIQUIS 5 MG PO ×2 (08:20→20:26)
[2024-04-27] MEDS: RISPERDAL 0.25 MG PO ×2 (08:21→20:26)
[2024-04-27] MEDS: JANUVIA 100 MG PO (08:21)
[2024-04-27] MEDS: SENOKOT 17.2 MG PO (08:21)
[2024-04-27] MEDS: LYRICA 50 MG PO ×3 (08:21→22:03)
[2024-04-27 11:49] LABS: Glucose - Point of Care 229 mg/dl (70-99)
--- NOTE | 2024-04-27 12:12 | W.PN.CD ---
Today's Communication / Plan
-
Patient initially seen in consultation because of some atypical chest discomfort that was worse with inspiration. Not felt to be related to coronary ischemia. Patient has remained pain-free since then feels fine with no complaints of chest pain no
longer has epigastric discomfort that he had previously.
Continue with medical therapy for coronary artery disease
Continue current management of atrial fibrillation
Monitor volume status for any signs of decompensated heart failure.
Overall condition appears to be stable on current therapy.
Cardiology will sign off at this time. Call if additional assistance required
Impression / Plan
-
Chest pain - likely musculoskeletal as it occurs with deep inspiration. Now resolved without recurrence currently asymptomatic.
- troponin 0.032,. Non-UT troponin. EKG w/o ischemia.
- he has known severe multivessel disease on cath 03/07/24, medical management.
- titration of medical therapy is limited by baseline hypotension.
-No additional changes in medical therapy required unless he has a significant change in symptoms.
CAD - severe known CAD on cath 03/07/24.
- medical therapy for his CAD as CABG is not a viable option given his age and comorbidities and the RCA appears untreatable.
- Toprol, Eliquis for PAF and Crestor.
-Treat anemia.
Anemia - acute post-op.
- hgb down to 7.6 today on initial evaluation. Now improved. Management as directed by primary team.
Paroxysmal atrial fibrillation - stable in NSR.
- continue metoprolol succinate.
- oral anticoagulation: Apixaban 5 mg twice daily, but now creatinine is 1.5 and therefore dose should be 2.5mg BID.
- [id number]: Score at least 6 (Heart failure, HTN, age 75 or more, Diabetes Mellitus, Vascular disease).
HFrEF - chronic.
- ischemic cardiomyopathy (LVEF 35-40%).
- euvolemic, continue GDMT as tolerated.
- Lisinopril on hold given hypotension, consider MRA as an outpatient, SGLT2 is affordable but he has a UTI this admission so holding off.
PAD - AAA 6.4 cm.
- s/p EVAR 04/21/[address] Berumen.
Pseudomonas UTI - per primary.
Hypothyroidism - stable on levothyroxine.
Physical Exam
Vital Signs/Labs
Vital Signs
Temp Pulse Resp BP Pulse Ox
97.8 F 52 16 152/73 94
04/27/24 07:10 04/27/24 08:20 04/27/24 07:10 04/27/24 08:20 04/27/24 07:10
04/26/24 04/27/24 04/28/24
06:59 06:59 06:59
Actual Weight 95.436 kg 96.162 kg
04/27/24 06:05
04/27/24 06:05
PT 15.2 Sec (11.4-14.6) H 04/22/24 04:44
INR 1.22 04/22/24 04:44
APTT 36.4 Sec (23.4-35.0) H 04/22/24 04:44
Magnesium 2.6 mg/dl (1.6-2.3) H 04/26/24 08:20
LAB Results
04/25/24
11:54
Troponin I 0.032
Physical Exam
Constitutional: No acute distress and Other (Hard of hearing)
Cardiovascular: Rhythm & rate is regular
Respiratory: Wheeze Absent and Rhonchi Absent
GI: Soft, Non tender and Other (No reproducible epigastric pain)
Neuro/Psych: Alert
Data Reviewed
-
Date of Service: April 27, 2024
Medical Decision Making: Reviewed Test Results
Medical Tests (PFT, Pathology etc): Report Reviewed by me
Labs: Labs Reviewed by me
[2024-04-27] MEDS: NOVOLOG FLEXPEN-MODERATE RESISTANCE 3 UNITS SC (12:28)
[2024-04-27 15:10] VITALS: BP 157/70
[2024-04-27 16:55] LABS: Glucose - Point of Care 309 mg/dl (70-99)
[2024-04-27] MEDS: NOVOLOG FLEXPEN-MODERATE RESISTANCE 7 UNITS SC (17:04)
[2024-04-27] MEDS: SENOKOT PO ×2 (20:27→20:32)
[2024-04-27] MEDS: MIRALAX PO (20:31)
[2024-04-27 21:50] LABS: Glucose - Point of Care 183 mg/dl (70-99)
[2024-04-27] MEDS: CRESTOR 20 MG PO (22:03)
[2024-04-27] MEDS: ZOLOFT 25 MG PO (22:03)
[2024-04-27] MEDS: NOVOLOG FLEXPEN-MODERATE RESISTANCE 1 UNITS SC (22:04)
[2024-04-27 23:32] VITALS: BP 158/73
[2024-04-28] MEDS: ZOSYN 50 IV ×4 (03:07→21:47)
[2024-04-28] MEDS: SYNTHROID 100 MCG PO (05:22)
[2024-04-28 05:45] VITALS: BMI 29.4
[2024-04-28] MEDS: TYLENOL 650 MG PO ×2 (05:52→20:20)
[2024-04-28 06:32] LABS: Hematocrit 28.8 % (39.0-52.0); Hemoglobin 9.3 g/dL (13.0-18.0); Mean Corp Hgb Conc. 32.3 g/dL (33.0-37.0); Mean Corpuscular Hgb 29.2 pg (27.0-31.0); Mean Corpuscular Volume 90.3 fL (80.0-94.0); Mean Platelet Volume 10.4 fL (7.4-10.4); Platelet Count 147 10^3/uL (130-400); Red Blood Cell Count 3.19 10^6/uL (4.70-6.10); Red Cell Dist. Width 15.8 % (11.5-14.5); White Blood Cell Count 7.2 10^3/uL (4.8-10.8)
[2024-04-28 06:58] LABS: Blood Urea Nitrogen 27 mg/dl (9-20); Carbon Dioxide 26 mmol/L (22-30); Chloride 106 mmol/L (98-107); Estimated Creatinine Clearance 43 ml/min; Glucose 120 mg/dl (70-99); Sodium 141 mmol/L (135-145); eGFR 53.17
[2024-04-28 07:05] VITALS: BP 167/77
[2024-04-28] MEDS: ELIQUIS 5 MG PO ×2 (07:38→20:13)
[2024-04-28] MEDS: RISPERDAL 0.25 MG PO ×2 (07:38→20:12)
[2024-04-28] MEDS: LYRICA 50 MG PO ×3 (07:38→21:46)
[2024-04-28] MEDS: DELTASONE 20 MG PO (07:38)
[2024-04-28] MEDS: FLOMAX 0.4 MG PO (07:38)
[2024-04-28] MEDS: PROTONIX 40 MG PO (07:38)
[2024-04-28] MEDS: JANUVIA 100 MG PO (07:39)
[2024-04-28] MEDS: TOPROL XL 25 MG PO (07:39)
[2024-04-28] MEDS: CELLCEPT 1000 MG PO ×2 (07:40→20:13)
[2024-04-28] MEDS: BACTRIM DS 800 MG/160 MG 1 TABLET PO (07:43)
[2024-04-28] MEDS: LASIX PO (07:54)
[2024-04-28] MEDS: SENOKOT PO ×2 (07:55→20:12)
[2024-04-28] MEDS: COLACE PO ×2 (07:55→20:13)
[2024-04-28] MEDS: MIRALAX PO ×2 (07:55→20:13)
[2024-04-28 08:03] LABS: Glucose - Point of Care 108 mg/dl (70-99)
--- NOTE | 2024-04-28 08:15 | PTCARENOTE ---
This RN walked in to administer AM meds at 0750 to find pt getting dressed. Pt stated that he was put on a restrictive diet that he was not previously on and that he could not order anything good anymore and that he was going to leave AMA. Pt
raising his voice and clearly very angry at this change. This RN and second RN de-escalated, made aware. Diet adjusted to pt's desires, pt is expressing thankfulness to this RN for our help. No new orders at this time.
[2024-04-28] MEDS: NOVOLOG FLEXPEN-MODERATE RESISTANCE SC (10:09)
[2024-04-28] MEDS: NOVOLOG FLEXPEN 3 UNITS SC ×3 (10:10→18:31)
--- NOTE | 2024-04-28 10:58 | W.PN.HOSP.TC ---
Today's Communication/Plan
-
DC planning
Assessment / Plan
Assessment / Plan
AAA-appreciate vascular surgery input, s/p endovascular repair 04/[address] Berumen. Eliquis resumed, continue statin. Follow-up with Dr. Berumen in the office
Acute toxic metabolic encephalopathy�suspect hospital delirium, resolved
Acute blood loss anemia-likely from surgery. Hemoglobin 9.3 today, was 9.1 status post 2 units packed red blood cells 04/25 for Hgb 7.6 today. CTA abdomen/pelvis negative for bleed
Multivessel CAD
Chest pain
-Appreciate cardiology input, recommend maintaining hemoglobin greater than 8
-Continue Eliquis, statin, Toprol XL
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 ID following, status post cefepime, currently on Zosyn to complete a 10 day course through 04/28/24.
Acute urinary retention -requiring straight cath, bladder scan protocol, started on Flomax.
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
Acute kidney injury�hold lisinopril, trend creatinine- improved.
Hypokalemia�repleted and resolved
Paroxysmal atrial fibrillation-continue Eliquis, metoprolol succinate
Interstitial lung disease-pulmonary fibrosis-not hypoxic on room air at rest.
Type 2 diabetes with hyperglycemia�continue Januvia, sliding scale insulin. On alogliptin at home; HbA1c 7.6 on adx- will resume on his home regimen on DC
Rheumatoid arthritis on chronic steroid and associated Bactrim prophylaxis treatments which would continue. Status post stress dose steroids, back on home prednisone dose
Hypothyroidism-continue Synthroid
Insomnia�would hold sleep medications for now due to patient's lethargy
DVT ppx - eliquis
Full code
Dispo - PT rec SNF, pt wishes to go back to assisted living
DC in am if stable
Anticipated Discharge: Within 24 hours
Subjective/Interval History
-
Date of Service: April 28, 2024
Not happy with the dietary restrictions. He wants a regular diet.
He is voicing no specific complaints.
Denies any urinary frequency or dysuria.
Denies any abdominal pain.
Objective Data
-
Labs:
Laboratory Results
04/28/24
06:12
WBC 7.2
Hgb 9.3 L
Hct 28.8 L
Plt Count 147
Sodium 141
Potassium 4.0
Chloride 106
Carbon Dioxide 26
BUN 27 H
Creatinine 1.3
Glucose 120 H
Calcium 9.0
Vital Signs:
Vital Signs
Temp Pulse Resp BP Pulse Ox
97.9 F 59 16 167/77 94
04/28/24 07:05 04/28/24 07:39 04/28/24 07:05 04/28/24 07:39 04/28/24 09:57
I&O
04/27/24 04/28/24 04/29/24
06:59 06:59 06:59
Intake Total 1370 / 1370 1620 / 1620
Output Total 1225 / 1225 1550 / 1550
Balance 145 / 145 70 / 70
Review of Systems
-
Unable to obtain full review of systems at this time due to: Other (Very hard of hearing-uses lip reading)
Respiratory: Denies Trouble Breathing
Cardiac: Denies Chest Pain
Physical Exam
-
General: No Apparent Distress
HEENT: Moist Mucous Membranes
Respiratory: Clear to Auscultation
Cardiac: Regular Rhythm and S1/S2
GI: Soft and Nontender
Neuro: Awake, Alert and Oriented
Psych: Calm
Data Reviewed
-
Labs: Labs Reviewed by me
[2024-04-28 14:57] LABS: Glucose - Point of Care 228 mg/dl (70-99)
[2024-04-28] MEDS: NOVOLOG FLEXPEN-MODERATE RESISTANCE 3 UNITS SC ×3 (15:01→21:47)
[2024-04-28 15:10] VITALS: BP 122/61
--- NOTE | 2024-04-28 16:34 | W.PN.ID1 ---
Date of Service
Date of Service: April 28, 2024
Today's Communication
Completing Zosyn tomorrow am.
ID will sign off.
Assessment / Plan
Complicated urinary tract infection secondary to Pseudomonas aeruginosa
AAA
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
RA (on mycophenolate, prednisone and prophylactic Bactrim)
CAD
DM
A-fib
CHF
HTN
Recommendations:
Confusion resolved off cefepime.
To complete Zosyn tomorrow am (d#10 abx).
ID will sign off.
����������������������������������������������������������
Chief Complaint
-: UTI
Subjective / Review of Systems
Feels well.
Vital Signs / Physical Exam
Vital Signs
Vital Signs
Temp Pulse Resp BP Pulse Ox
97.6 F 67 14 122/61 96
04/28/24 15:10 04/28/24 15:10 04/28/24 15:10 04/28/24 15:10 04/28/24 15:10
Physical Exam
Constitutional: No Acute Distress
Gastrointestinal: Soft, Non Tender and Non Distended
Genito-Urinary: Negative Berumen or CVA Tenderness
Objective Data
Lab Data
Lab Results
04/28/24 06:12
04/28/24 06:12
PT 15.2 Sec (11.4-14.6) H 04/22/24 04:44
INR 1.22 04/22/24 04:44
APTT 36.4 Sec (23.4-35.0) H 04/22/24 04:44
Estimated Creat Clear 43 ml/min 04/28/24 06:12
Lactic Acid 1.1 mmol/L (0.7-2.0) 04/24/24 07:37
Total Bilirubin 0.7 mg/dl (0.2-1.3) 04/26/24 08:20
AST 33 U/L (17-59) 04/26/24 08:20
ALT 17 U/L (0-50) 04/26/24 08:20
Alkaline Phosphatase 65 U/L (38-126) 04/26/24 08:20
Most recent labs reviewed.
Micro Results:
04/24/24 07:37 Blood Culture - Preliminary
Blood/Venous No Growth in 4 days- Final report to follow
04/25/24 05:15 Blood Culture - Preliminary
Blood/Venous No Growth in 72 hours- Final report to follow
04/19/24 15:36 Urine Culture - Final
Urine Pseudomonas aeruginosa
Outpatient Urine culture - 04/16/2024
Pseudomonas aeruginosa
Amikacin S
Cefepime S
Ceftazidime S
Gentamicin S
Imipenem I
Levofloxacin R
Meropenem I
Piperacillin S
Imaging:
03/03/2024 CT abdomen/pelvis: 1. 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 2. Infrarenal neck measures 2.5 cm in length. No significant angulation of the
infrarenal neck, however there is ulcerated plaque within the infrarenal neck. 3. 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 4. Mild reticular interstitial thickening at the lung bases,
suggestive of mild interstitial fibrosis. 5. Cholelithiasis without evidence of acute cholecystitis.
[2024-04-28 17:17] LABS: Haptoglobin 422 mg/dL (30-200)
[2024-04-28 17:51] LABS: Glucose - Point of Care 235 mg/dl (70-99)
[2024-04-28 21:46] LABS: Glucose - Point of Care 245 mg/dl (70-99)
[2024-04-28] MEDS: ZOLOFT 25 MG PO (21:46)
[2024-04-28] MEDS: CRESTOR 20 MG PO (21:47)
[2024-04-28 23:09] VITALS: BP 154/64
[2024-04-29] MEDS: ZOSYN 50 IV ×2 (03:50→10:53)
[2024-04-29] MEDS: SYNTHROID 100 MCG PO (05:11)
[2024-04-29 07:15] LABS: Glucose - Point of Care 108 mg/dl (70-99)
[2024-04-29] MEDS: COLACE PO (07:26)
[2024-04-29] MEDS: NOVOLOG FLEXPEN-MODERATE RESISTANCE SC (07:26)
[2024-04-29] MEDS: MIRALAX PO (07:27)
[2024-04-29] MEDS: SENOKOT PO (07:27)
[2024-04-29] MEDS: FLOMAX 0.4 MG PO (07:53)
[2024-04-29 07:54] VITALS: BP 163/77
[2024-04-29] MEDS: JANUVIA 100 MG PO (07:54)
[2024-04-29] MEDS: LASIX 40 MG PO (07:54)
[2024-04-29] MEDS: TOPROL XL 25 MG PO (07:55)
[2024-04-29] MEDS: ELIQUIS 5 MG PO (07:55)
[2024-04-29] MEDS: RISPERDAL 0.25 MG PO (07:56)
[2024-04-29] MEDS: DELTASONE 20 MG PO (07:56)
[2024-04-29] MEDS: CELLCEPT 1000 MG PO (07:56)
[2024-04-29] MEDS: PROTONIX 40 MG PO (07:56)
[2024-04-29] MEDS: LYRICA 50 MG PO (07:56)
[2024-04-29] MEDS: NOVOLOG FLEXPEN 3 UNITS SC ×2 (07:57→13:29)
[2024-04-29 11:52] LABS: Glucose - Point of Care 176 mg/dl (70-99)
[2024-04-29] MEDS: NOVOLOG FLEXPEN-MODERATE RESISTANCE 1 UNITS SC (13:30)
--- NOTE | 2024-04-29 14:24 | W.PN.HOSP.TC ---
Today's Communication/Plan
-
DC
Assessment / Plan
Assessment / Plan
AAA-appreciate vascular surgery input, s/p endovascular repair 04/[address] Berumen. Eliquis resumed, continue statin. Follow-up with Dr. Berumen in the office
Acute toxic metabolic encephalopathy�suspect [facility] delirium, resolved
Acute blood loss anemia-likely from surgery. Hemoglobin 9.3 yesterday, was 9.1 status post 2 units packed red blood cells 04/25 for Hgb 7.6 . CTA abdomen/pelvis negative for bleed
Multivessel CAD
Chest pain
-Appreciate cardiology input, recommend maintaining hemoglobin greater than 8
-Continue Eliquis, statin, Toprol XL
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 ID following, status post cefepime, currently on Zosyn to complete a 10 day course through 04/28/24.
Acute urinary retention -requiring straight cath, bladder scan protocol, started on Flomax.
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
Acute kidney injury�resolved .resume lisinopril .
Paroxysmal atrial fibrillation-continue Eliquis, metoprolol succinate
Interstitial lung disease-pulmonary fibrosis-not hypoxic on room air at rest.
Type 2 diabetes with hyperglycemia� On alogliptin at home; HbA1c 7.6 on adx- will resume on his home regimen on DC
Rheumatoid arthritis on chronic steroid and associated Bactrim prophylaxis treatments which would continue. Status post stress dose steroids, back on home prednisone dose
Hypothyroidism-continue Synthroid
Insomnia�would hold sleep medications for now due to patient's lethargy
DVT ppx - eliquis
Full code
Dispo - PT rec SNF, pt wishes to go back to assisted living
PT to check on him today
Medically stable for DC
DW Son at bedside regarding the medical stability, medications and follow-up plans.
Total time of DC 32 MIN
Anticipated Discharge: Today
Subjective/Interval History
-
Date of Service: April 29, 2024
patient feeling good. Voices no specific complaints. Son at bedside who also sees improvement in general.
Patient hard of hearing. He uses lip reading. Denies any shortness of breath, chest pain or fevers. No abdominal pain.
Objective Data
-
Vital Signs:
Vital Signs
Temp Pulse Resp BP Pulse Ox
98 F 78 18 163/77 93
04/29/24 07:54 04/29/24 07:54 04/29/24 07:54 04/29/24 07:54 04/29/24 09:45
I&O
04/28/24 04/29/24 04/30/24
06:59 06:59 06:59
Intake Total 1620 / 1620 1300 / 1300
Output Total 1550 / 1550 1350 / 1350
Balance 70 / 70 -50 / -50
Review of Systems
-
Unable to obtain full review of systems at this time due to: Other (hard of hearing)
Physical Exam
-
General: No Apparent Distress
HEENT: Moist Mucous Membranes
Respiratory: Clear to Auscultation
Cardiac: Regular Rhythm and S1/S2
GI: Soft and Nontender
Neuro: Awake, Alert and Oriented
Psych: Calm
[2024-04-29 14:27] VITALS: BP 160/69; PULSE 66
[2024-04-29 14:31] VITALS: BP 160/69
--- NOTE | 2024-04-29 14:36 | W.DS.TRANS ---
DC Summary - [employer]
-
Discharge Instructions:
Sleep Apnea Risk Intermediate
Discharge Diagnosis/Procedures AAA- s/p endovascular repair 04/[address] Berumen;
Acute toxic metabolic encephalopathy�suspect
hospital delirium;Acute blood loss anemia-likely
from surgery S/P PRBC ;Recurrent symptomatic
UTI with Pseudomonas isolates;CAD;Chronic heart
failure with reduced EF and ischemic
cardiomyopathy
Diet 2 Gram Sodium,Diabetic, Carb Controlled
Activity As tolerated
Driving Restrictions No driving
Other Services PT
Specialty Instructions Weigh Daily
Instructions:
Stand-Alone Forms:
Changes to Home Medications: Yes
Discharge Medications:
DC Medications w/original date entered in Vetr
alogliptin 25 mg tablet 25 mg PO DAILY Diabetes 03/03/24
alprazolam 0.5 mg tablet 0.5 mg PO PRN PRN anxiety 03/03/24
docusate sodium 100 mg tablet 200 mg PO BID Constipation 03/03/24
furosemide 40 mg tablet 40 mg PO DAILY Fluid Retention/Swelling 03/03/24
levothyroxine 100 mcg capsule 100 mcg PO DAILY Thyroid 03/03/24
metoprolol succinate 25 mg tablet,extended release 24 hr 25 mg PO DAILY Heart Disease/Condition 03/03/24
mycophenolate mofetil 500 mg tablet 1,000 mg PO BID IMMUNOSUPRESSANT 03/03/24
nitroglycerin 0.4 mg sublingual tablet 0.4 mg sublingual [id number] PRN angina 03/03/24
prednisone 20 mg tablet 20 mg PO DAILY Anti-Inflammatory 03/03/24
pregabalin 50 mg capsule 50 mg PO TID Neurological Condition 03/03/24
rosuvastatin 20 mg tablet 20 mg PO HS High Cholesterol 03/03/24
sennosides 8.6 mg tablet (senna) 8.6 mg PO DAILY Constipation 03/03/24
sertraline 25 mg tablet 25 mg PO HS Depression 03/03/24
sulfamethoxazole 800 mg-trimethoprim 160 mg tablet 1 tab PO MOWEFR Infection 03/03/24
Del Menstrual 50 Plus 1 tab PO DAILY Supplement 04/10/24
glucosamine 750 ua-sgaipcjdjcv-ooa no1 644 mg-C 30 mg-nissa 1 mg tablet (Osteo Bi-Flex Triple Strength) 1 tab PO DAILY Supplement 04/10/24
lisinopril 5 mg tablet 5 mg PO DAILY Blood Pressure 04/10/24
apixaban 5 mg tablet (Eliquis) 5 mg PO .SEE BELOW AFib 04/19/24
acetaminophen 325 mg tablet 650 mg (2 x 325 mg) PO Q4HPRN PRN mild pain /fever >100.4 #1 tab 04/29/24
polyethylene glycol 3350 17 gram oral powder packet (HealthyLax) 17 g PO DAILY #30 ea 04/29/24
Home Medication Changes
New med - miralax
Pending Results: No
--- NOTE | 2024-04-29 15:11 | CM ---
Addendum entered by Akosua Gonzalez 04/29/24 15:29:
[facility] REPORT #: [phone]
[facility] Fax #: [phone]
Original Note:
Patient seen at bedside with son. IMM EXPLAINED & SIGNED. In chart
Patient discharged today back to the [facility]
Son to transport.
Spoke with Katelyn at the [facility] and notified of discharge.
PLAN: Discharge to the [facility] with [facility].
son to transport
[facility]
Report #: [phone] - ask for nursing
Fax #: [phone]
--- NOTE | 2024-04-29 15:31 | PTCARENOTE ---
Called report to Rizwan at [facility]. RN not needing report at this time, stated faxed information is good enough. Instructed with phone number and this RN's name to call back with questions if need be,.
== END 2024-04-29 16:29 | disposition home health service (06) | DRG 673 ==
LOC: 2 NORTH 18:14
PROVIDERS: Emergency Medicine; Family Medicine; Nurse Practitioner; Nurse Practitioner Acute Care; Surgery Vascular Surgery; ADMITTING PHYSICIAN Internal Medicine; CONSULT PHYSICIAN Internal Medicine Cardiovascular Disease; CONSULT PHYSICIAN Internal Medicine Critical Care Medicine; CONSULT PHYSICIAN Internal Medicine Infectious Disease; EMERGENCY PHYSICIAN Student in an Organized Health Care Education/Training Program; FAMILY PHYSICIAN Family Medicine
PROC: 04V03EZ Restriction of Abdominal Aorta with Branched or Fenestrated Intraluminal Device, One or Two Arteries, Percutaneous Approach (ICD-10-PCS; 2024-04-21)
PROC: 30233N1 Transfusion of Nonautologous Red Blood Cells into Peripheral Vein, Percutaneous Approach (ICD-10-PCS; 2024-04-25)
DX: N39.0 Urinary tract infection, site not specified (principal); G92.8 Other toxic encephalopathy; I50.22 Chronic systolic (congestive) heart failure; N17.9 Acute kidney failure, unspecified; D62 Acute posthemorrhagic anemia; L76.32 Postprocedural hematoma of skin and subcutaneous tissue following other procedure; I71.43 Infrarenal abdominal aortic aneurysm, without rupture; I11.0 Hypertensive heart disease with heart failure; I25.10 Atherosclerotic heart disease of native coronary artery without angina pectoris; J84.10 Pulmonary fibrosis, unspecified; I25.5 Ischemic cardiomyopathy; I48.0 Paroxysmal atrial fibrillation; K21.9 Gastro-esophageal reflux disease without esophagitis; J44.9 Chronic obstructive pulmonary disease, unspecified; M06.9 Rheumatoid arthritis, unspecified; B96.5 Pseudomonas (aeruginosa) (mallei) (pseudomallei) as the cause of diseases classified elsewhere; G47.00 Insomnia, unspecified; R33.9 Retention of urine, unspecified; Y83.8 Other surgical procedures as the cause of abnormal reaction of the patient, or of later complication, without mention of misadventure at the time of the procedure; E87.6 Hypokalemia; R07.89 Other chest pain; E78.00 Pure hypercholesterolemia, unspecified; K59.00 Constipation, unspecified; Z96.651 Presence of right artificial knee joint; Z87.891 Personal history of nicotine dependence; Z79.82 Long term (current) use of aspirin; Z79.01 Long term (current) use of anticoagulants; Z79.890 Hormone replacement therapy; Z88.5 Allergy status to narcotic agent; Z79.899 Other long term (current) drug therapy; Z79.624 Long term (current) use of inhibitors of nucleotide synthesis; Z79.52 Long term (current) use of systemic steroids
CPT/HCPCS: 34705; 34812; 36415; 70450; 74174; 76937; 80048; 80053; 81003; 81015; 82248; 82607; 82728; 82746; 82962; 83010; 83036; 83540; 83605; 83615; 83735; 84484; 85014; 85018; 85025; 85027; 85384; 85610; 85730; 86850; 86900; 86901; 86920; 87040; 87070; 87077; 87086; 87186; 93005; 96374; 97116; 97163; 97167; 97530; 97535; 99284; C1769; C1773; C1894; C2628; P9016; Q9967

== ENCOUNTER 2024-05-04 15:37 | Emergency (ER) | payer MEDICARE, OTHER, SELFPAY ==
[2024-05-04 15:44] VITALS: BP 126/63
[2024-05-04 16:12] LABS: Urine Albumin Trace (Neg - Trace); Urine Bilirubin Negative (Negative); Urine Character Clear (Clear); Urine Color Yellow; Urine Glucose 2+ (Negative); Urine Ketone Negative (Negative); Urine Leukocyte Negative (Negative); Urine Nitrite Negative (Negative); Urine Occult Blood Negative (Negative); Urine Urobilinogen Negative (Neg - 1+)
[2024-05-04 17:21] LABS: % Immature Granulocytes 1.2 % (0-0.5); % Lymphocytes 7.2 % (20.5-51.1); % Monocytes 6.4 % (1.7-9.3); % Neutrophils 85.2 % (42.2-75.2); Absolute Immature Granulocytes 0.1 10^3/uL (0-0.05); Absolute Lymphocytes 0.7 10^3/uL (1.2-3.4); Absolute Monocytes 0.6 10^3/uL (0.1-0.6); Absolute Neutrophils 8.4 10^3/uL (1.4-6.5); Hematocrit 27.3 % (39.0-52.0); Hemoglobin 8.7 g/dL (13.0-18.0); Mean Corp Hgb Conc. 31.9 g/dL (33.0-37.0); Mean Corpuscular Hgb 29.4 pg (27.0-31.0); Mean Corpuscular Volume 92.2 fL (80.0-94.0); Mean Platelet Volume 10.2 fL (7.4-10.4); Nucleated Red Blood Cells % 0 % (-); Platelet Count 239 10^3/uL (130-400); Red Blood Cell Count 2.96 10^6/uL (4.70-6.10); Red Cell Dist. Width 16.5 % (11.5-14.5); White Blood Cell Count 9.8 10^3/uL (4.8-10.8)
[2024-05-04 17:38] LABS: ALT (SGPT) 19 U/L (0-50); AST (SGOT) 23 U/L (17-59); Albumin 3.2 g/dl (3.5-5.0); Alkaline Phosphatase 64 U/L (38-126); Blood Urea Nitrogen 29 mg/dl (9-20); Calcium 8.5 mg/dl (8.4-10.2); Carbon Dioxide 24 mmol/L (22-30); Chloride 103 mmol/L (98-107); Glucose 261 mg/dl (70-99); Potassium 4.4 mmol/L (3.5-5.1); Sodium 139 mmol/L (135-145); Total Bilirubin 0.4 mg/dl (0.2-1.3); Total Protein 5.6 g/dl (6.3-8.2); eGFR > 60.00
--- NOTE | 2024-05-04 17:44 | ED.GENMED ---
History of Present Illness
General
Chief Complaint: Male Genito-Urinary Symptoms
Source: patient
Exam Limitations: none
Time Seen by Provider: 05/04/24 16:46
Nursing documentation reviewed up to this point in time: agreed with
History of Present Illness
History of Present Illness:
Patient to ED for eval of urinary frequency. Son states patient was recently inpatient here for UTI. Concerned for recurrence. Denies fever/chills. No other complaints.
Past History
Past History
ED Past Medical History: CHF and HTN
Social History
Tobacco: Non-smoker
Alcohol: None
Drug: None
Review of Systems
Review of Systems
Allergies reviewed?: Yes
All Other Systems: ROS reviewed and negative except as documented in HPI and ROS
Constitutional: Reports no symptoms
EENT: Reports no symptoms
Respiratory: Reports no symptoms
Cardiac: Reports no symptoms
ABD/GI: Reports no symptoms
: Reports frequency
Musculoskeletal: Reports no symptoms
Skin: Reports no symptoms
Neurological: Reports no symptoms
Psychiatric: Reports no symptoms
Phy Exam
General Physical Exam
General Presentation: well appearing and no apparent distress
General age: appears stated age
General Skin: warm and dry
General Habitus: normal
Cardiovascular Exam
Cardiovascular Exam: regular rate/rhythm and no edema
Pulmonary Exam
Pulmonary Exam: lungs clear, no respiratory distress and chest non tender
Gastrointestinal Exam
Gastrointestinal Exam: normal bowel sounds, non tender, soft and no organomegaly
Musculoskeletal Exam
Musculoskeletal Exam: full ROM and neuro vasc intact
Skin Exam
Skin Exam: normal color, warm/dry, no rash and other ([place] intact to ight groin incision, no s/s infection (AAA repair 2 weeks ago))
Psychiatric Exam
Psychiatric Exam: normal mood/affect
Course
Orders/Labs/Results
Orders:
Orders
05/04/24 16:02
Urinalysis Reflex To Culture Urgent
Date Specimen was Collected: 05/04/24
Time Specimen was Collected: 15:57
05/04/24 16:56
Bladder Scan- Treatment ONCE
05/04/24 17:15
Complete Blood Count/With Diff Urgent
Comprehensive Metabolic Panel Urgent
Abnormal Lab Results
05/04/24 05/04/24
16:02 17:15
RBC 2.96 L 10^6/uL
(4.70-6.10)
Hgb 8.7 L g/dL
(13.0-18.0)
Hct 27.3 L %
(39.0-52.0)
MCHC 31.9 L g/dL
(33.0-37.0)
RDW 16.5 H %
(11.5-14.5)
Abs Immat Gran (auto) 0.1 H 10^3/uL
(0-0.05)
Absolute Neuts (auto) 8.4 H 10^3/uL
(1.4-6.5)
Absolute Lymphs (auto) 0.7 L 10^3/uL
(1.2-3.4)
Immature Gran % 1.2 H %
(0-0.5)
Neutrophils % 85.2 H %
(42.2-75.2)
Lymphocytes % 7.2 L %
(20.5-51.1)
BUN 29 H mg/dl
(9-20)
Glucose 261 H mg/dl
(70-99)
Total Protein 5.6 L g/dl
(6.3-8.2)
Albumin 3.2 L g/dl
(3.5-5.0)
Urine Glucose 2+ A
(Negative)
05/04/24 17:15
05/04/24 17:15
Vital Signs
Initial and Last Documented VS:
Initial Vital Signs
Temp Pulse Resp BP Pulse Ox
98.1 F 71 16 126/63 92
05/04/24 15:44 05/04/24 15:44 05/04/24 15:44 05/04/24 15:44 05/04/24 15:44
Last Documented Vital Signs
Temp Pulse Resp BP Pulse Ox
98.1 F 71 16 126/63 92
05/04/24 15:44 05/04/24 15:44 05/04/24 15:44 05/04/24 15:44 05/04/24 15:44
*Pulse Oximetry
Patient hypoxic: no
*Critical Care Note
Total Time (30-74mins, 75-104mins- exclusive of procedures): Not Applicable
Update Note
Update Note:
Labs reviewed. UA without evidence of UTI. +3 glucose - hx NIDDM. WBC normal. Bladder scan without evidence of retention. Will discharge home, follow up with PCP this week. Given instructions on s/s to return to ED and he is agreeable to plan.
VSS, afebrile.
ED Attending Note
-
Portions of this chart may have been created with voice recognition software.� Occasional wrong word or��sound alike� substitutions may have occurred due to the inherent limitations of voice recognition software.
Discharge Plan
Departure
Patient Disposition: Home (Routine Discharge)
Date of Disposition: 05/04/24
Time of Disposition: 17:47
Patient with high blood pressure during this ER visit?: No
Condition: Good
Covid-19: Not Applicable
Discharge Problem:
Urinary frequency
Instructions: General
Prescriptions:
No Action
furosemide 40 mg Tablet
40 mg PO DAILY
sennosides [senna] 8.6 mg Tablet
8.6 mg PO DAILY
prednisone 20 mg Tablet
20 mg PO DAILY
sulfamethoxazole-trimethoprim 800-160 mg Tablet
1 tab PO MOWEFR
mycophenolate mofetil 500 mg Tablet
1,000 mg PO BID
alprazolam 0.5 mg Tablet
0.5 mg PO PRN PRN (Reason: anxiety)
nitroglycerin 0.4 mg Tablet, Sublingual
0.4 mg SUBLINGUAL [id number] PRN (Reason: angina)
sertraline 25 mg Tablet
25 mg PO HS
metoprolol succinate 25 mg Tablet Extended Release 24 Hr
25 mg PO DAILY
docusate sodium 100 mg Tablet
200 mg PO BID
rosuvastatin 20 mg Tablet
20 mg PO HS
pregabalin 50 mg Capsule
50 mg PO TID
levothyroxine 100 mcg Capsule
100 mcg PO DAILY
alogliptin 25 mg Tablet
25 mg PO DAILY
lisinopril 5 mg Tablet
5 mg PO DAILY
Osteo Bi-Flex Triple Strength 750 mg-644 mg- 30 mg-1 mg Tablet
1 tab PO DAILY
Del Menstrual 50 Plus
1 tab PO DAILY
Eliquis 5 mg tablet
5 mg PO .SEE BELOW
Patient Comments:
04/19/2024: on hold due to AAA surgery scheduled for 04/21/24
acetaminophen 325 mg Tablet
650 mg PO Q4HPRN PRN (Reason: mild pain /fever >100.4) Qty: 1 0RF
polyethylene glycol 3350 [HealthyLax] 17 gram Powder In Packet
17 g PO DAILY Qty: 30 0RF
Referrals:
Van John MD [Family Provider] - Tomorrow
Activity Restrictions/Additional Instructions:
Return to the emergency department immediately for any changes in/worsening of your symptoms
Interventions
Interventions:
*Risk Screen - Suicide Last Done: 05/04/24 17:30
*General Assessment Last Done: 05/04/24 17:30
*Neglect/Abuse Screening Last Done: 05/04/24 17:30
ED- Fall Risk Assessment Last Done: 05/04/24 18:14
*Nursing Disposition Last Done: 05/04/24 18:14
ED-Male Genitourinary Assessment Last Done: 05/04/24 17:30
Discharge Date and Time
Discharge Date/Time: 05/04/24 18:14
Print Language: ESTONIAN
== END 2024-05-04 18:14 | disposition home or self-care (01) ==
LOC: EMR 15:37
PROVIDERS: Nurse Practitioner; EMERGENCY PHYSICIAN Emergency Medicine; FAMILY PHYSICIAN Family Medicine
DX: R35.0 Frequency of micturition (principal); E11.9 Type 2 diabetes mellitus without complications
CPT/HCPCS: 99283; 51798; 80053; 81003; 85025

== ENCOUNTER → 2024-06-05 11:03 | Outpatient (REF) | payer MEDICARE, OTHER, SELFPAY | LOC: HWRAD 11:03 | PROVIDERS: ATTENDING PHYSICIAN Internal Medicine Critical Care Medicine; FAMILY PHYSICIAN Family Medicine | DX: J84.9 Interstitial pulmonary disease, unspecified (principal); J96.11 Chronic respiratory failure with hypoxia | CPT/HCPCS: 71250 ==

== ENCOUNTER 2024-06-08 13:11 | Inpatient (IN) | payer MEDICARE, OTHER, SELFPAY ==
[2024-06-08] VITALS (11 sets, daily range): BP systolic 113–155; BP diastolic 59–94; BMI 29.5; BMI 28.8
[2024-06-08] MEDS: MORPHINE SULFATE 4 MG IV (10:15)
--- NOTE | 2024-06-08 10:15 | ED.GENMED ---
History of Present Illness
<Scott Miller PA-C - Last Filed: 06/08/24 14:03>
General
Chief Complaint: Chest Pain
Source: patient, records and family
Time Seen by Provider: 06/08/24 10:03
History of Present Illness
History of Present Illness:
89-year-old male with past medical history of abdominal aortic aneurysm status postrepair past March, atrial fibrillation, CHF, hypertension, hyperlipidemia, interstitial lung disease, etc-[id number] diabetes presenting to the emergency
department for evaluation of midsternal chest pain that began around 4 AM, constant, gradually worsening and patient stating the pain is significantly worse with deep inspiration describing a tearing sensation as if his chest are being torn apart.
Patient notes no relief with different positions. Denies any fevers, chills, rigors. Son notes patient had a CAT scan done here 3 days ago for workup as part of his interstitial lung disease but they were unaware of these results. Family and
nursing notes that on arrival to the ER patient had 1 episode of nonbloody nonbilious emesis. Patient also does endorse little bit of epigastric abdominal pain
Past History
<Scott Miller PA-C - Last Filed: 06/08/24 14:03>
Past History
ED Past Medical History: CHF and HTN
Social History
Tobacco: Non-smoker
Alcohol: None
Drug: None
Phy Exam
<Scott Miller PA-C - Last Filed: 06/08/24 14:03>
Physical Exam
Physical Exam:
GENERAL: Alert , constantly moaning, appears in significant amount of pain
HEAD: NCAT
EYE: clear conjunctiva
NECK: Supple
ENT: o/p clr, mmm.
CARDIAC: Regular rate and rhythm, systolic murmur .
LUNGS: Clear breath sounds bilaterally, no acute respiratory distress, no wheezes/rales/rhonchi
ABDOMEN: Soft, mold ttp epigastrum, no r/g, no cvat
NEUROLOGICAL: Alert and oriented
SKIN: Warm and dry, skin intact.
MUSCULOSKELETAL: No edema, well perfused. intact and equal peripheral pulses
PSYCH: Normal and appropriate interaction.
Scores
<Scott Miller PA-C - Last Filed: 06/08/24 14:03>
Heart Failure Risk
Heart Failure Risk Score: Not Applicable
Heart Score for Chest Pain Patients
STEMI patient?: No
History: Moderately Suspicious
ECG: Normal
Age: >/= 65 years
Risk Factors: >/= 3 Risk Factors or History of CAD
Troponin: </= Normal Limit
Heart Score for Chest Pain Patients: 5
Heart Score Risk: 20.3% MACE over next 6 weeks
Withdrawal Assessment of Alcohol
Withdrawal Assessment Completed?: Not applicable
Course
<Scott Miller PA-C - Last Filed: 06/08/24 14:03>
Orders/Labs/Results
Orders:
Orders
06/08/24 09:28
Electrocardiogram (*1) Urgent
Reason for Study: Chest Pain
EKG- Treatment ONCE
06/08/24 10:07
IV Insert/Care/Rem.- Treatment PRN
06/08/24 10:08
Complete Blood Count/With Diff Urgent
Comprehensive Metabolic Panel Urgent
Lipase Urgent
Comment: LIPASE ADDED ON BY FLOOR 10:40AM 06-08-24
06/08/24 10:10
Morphine Sulfate 4 mg IV NOW STA
06/08/24 10:11
CT Chest/abd/pelvis Angio W/wo Urgent
Comment:
Reason For Exam: midsternal tearing chest pain
06/08/24 10:14
Type+Screen Urgent
NT-proBNP Urgent
PTT Urgent
Prothrombin Time Urgent
Troponin I Urgent
06/08/24 10:36
Electrocardiogram (*1) Urgent
Reason for Study: Chest Pain
EKG- Treatment ONCE
06/08/24 10:40
Add On- LAB Urgent
Tests Added?: lipase
06/08/24 10:41
HYDROmorphone [Dilaudid] 0.5 mg IV NOW STA
06/08/24 10:55
HYDROmorphone [Dilaudid] 0.5 mg IV NOW STA
Pantoprazole [Protonix IV] 40 mg IV NOW STA
06/08/24 11:10
Nitroglycerin Ointment [Nitro-Bid] 0.5 inch TOPICAL NOW STA
06/08/24 12:08
Metoprolol [Lopressor] 2.5 mg IV NOW STA
06/08/24 12:13
Bladder Scan As Directed
Follow Bladder Retention/Intermittent Cath Algorithm?: Yes
PRN if no void in __ hours: 6
Frequency: Per Retention Algorithm
If Bladder Scan Result >: 400
then:: Straight cath
06/08/24 12:14
Straight Cath As Directed
Frequency: Per Retention Algorithm
Additional Instructions: straight cath as needed per acute urinary retention algorithm for 24 hrs
Additional Instructions: for bladder scan greater than 400 mL
06/08/24 12:26
Lactic Acid Q4H
Comment: CANCEL 2nd LACTIC ACID IF 1st LACTIC ACID IS LESS THAN 2
UA Reflex to Culture [Urinalysis Reflex To Culture] Urgent
Date Specimen was Collected: 06/08/24
Time Specimen was Collected: 12:22
06/08/24 12:37
US Abdomen Complete/Upper Urgent
Reason For Exam: abdominal pain, mild gallbladder distention on CT
06/08/24 12:[address] Non Medication Order As Directed
Physician Order: notify MD when med rec done
06/08/24 12:39
Procalcitonin Urgent
PCT Algorithmm Indication: Respiratory
06/08/24 12:41
Admit/Transfer Patient As Directed
Co-Sign Provider:
Level of Care: Inpatient admission
Assign to:: IMU- Intermediate Care
Physician / Group: asuncion nichols
Diagnosis: Intractable chest pain/abdominal pain
Reason for Hospitalization: Intractable chest pain/abdominal pain
Expected length of stay greater than two midnights?: Yes
ELOS- Estimated Length of Stay in days: 3
I certify the patient meets the requirements for IP care: Yes
PRN Pain Medication Management As Directed
May give lesser potent ordered pain med per pt: Yes
preference::
Protocol:: Medication orders for pain may be administered in a
manner that supports deferring to patient preference
when the pt is:
- Requesting an ordered lesser potent pain medication.
Least to most potent pain medications are defined
as: acetaminophen < NSAID < tramadol < opioids
(morphine, oxycodone, hydromorphone).
- Requesting a lesser dose of the same medication IF
ORDERED.
- Requesting a less intrusive route of administration
if both routes are prescribed by the provider (PO <
IV).
06/08/24 12:42
Code Status As Directed
Resuscitation Status: Full Code
06/08/24 12:46
CARDIOLOGY CONSULT Urgent
Consulting Provider: George Parker
Was physician already notified: Yes
Vascular Surgery Consult Urgent
Consulting Provider: Zachariah Berumen III
Was physician already notified: Yes
06/08/24 12:48
Incentive Spirometry [Rx Incentive Spirometry] [RESP] Urgent
Frequency: q1h while awake
06/08/24 12:57
Nitroglycerin Sublingual [Nitrostat (Sublingual)] 0.4 mg SL [id number] PRN
06/08/24 13:07
Dextrose 50%-Water [Dextrose 50% Syringe] 12.5 grams IV [id number] PRN
Glucagon [GlucaGen] 1 mg IM PRN PRN
Bedside Glucose Monitoring As Directed
Frequency: AC&HS
Additional Instructions:: Change to q6h if pt on TPN, tube feeding or not eating
06/08/24 13:51
Zinc Oxide 20% [Zinc Oxide Ointment] See Dose Instructions TOPICAL DAILYPRN PRN
06/08/24 14:00
Piperacillin/Tazo 3.375 Gram [Zosyn] 3.375 gram in 50 ml IV Q6H
06/08/24 15:00
HYDROmorphone [Dilaudid] 0.5 mg IV Q4HPRN PRN
06/08/24 16:00
Lactic Acid Q4H
Comment: CANCEL 2nd LACTIC ACID IF 1st LACTIC ACID IS LESS THAN 2
06/08/24 16:30
Insulin Aspart Corrective Low [Novolog Flexpen-Low Resistance] See Protocol SC AC
06/08/24 18:00
Sennosides [Senokot] 8.6 mg PO QPM
Sertraline HCl [Zoloft] 25 mg PO QPM
06/08/24 20:00
Apixaban [Eliquis] 5 mg PO BID
Mycophenolate Mofetil 1,000 mg PO BID
06/08/24 22:00
Rosuvastatin Calcium [Crestor] 20 mg PO HS
06/09/24 06:00
Glycohemoglobin (HgbA1c) IN AM
Levothyroxine [Synthroid] 100 mcg PO DAILY @ 0600
06/09/24 08:00
0.9% Sodium Chloride [Nss (Preservative Free)] 10 ml IV DAILY
Furosemide [Lasix] 40 mg PO DAILY
Metoprolol Xl [Toprol Xl] 25 mg PO DAILY
Pantoprazole [Protonix IV] 40 mg IV DAILY
Polyethylene Glycol Powder [Miralax] 17 grams PO DAILY
Prednisone [Deltasone] 20 mg PO DAILY
azelastine 2 spray NASAL DAILY
Abnormal Lab Results
06/08/24 06/08/24 06/08/24
10:08 10:14 12:26
RBC 3.68 L 10^6/uL
(4.70-6.10)
Hgb 10.7 L g/dL
(13.0-18.0)
Hct 35.0 L %
(39.0-52.0)
MCV 95.1 H fL
(80.0-94.0)
MCHC 30.6 L g/dL
(33.0-37.0)
RDW 17.2 H %
(11.5-14.5)
Abs Immat Gran (auto) 0.1 H 10^3/uL
(0-0.05)
Absolute Neuts (auto) 7.4 H 10^3/uL
(1.4-6.5)
Immature Gran % 0.7 H %
(0-0.5)
Neutrophils % 75.8 H %
(42.2-75.2)
Lymphocytes % 16.7 L %
(20.5-51.1)
PT 16.6 H Sec
(11.4-14.6)
APTT 36.6 H Sec
(23.4-35.0)
BUN 33 H mg/dl
(9-20)
Creatinine 1.4 H mg/dL
(0.7-1.3)
Glucose 183 H mg/dl
(70-99)
Lactic Acid 3.4 H mmol/L
(0.7-2.0)
Urine Glucose Trace A
(Negative)
06/08/24 10:08
06/08/24 10:08
Vital Signs
Initial and Last Documented VS:
Initial Vital Signs
Temp Pulse Resp BP Pulse Ox
98.7 F 73 16 116/72 97
06/08/24 09:39 06/08/24 09:39 06/08/24 09:39 06/08/24 09:39 06/08/24 09:39
Last Documented Vital Signs
Temp Pulse Resp BP Pulse Ox
98.7 F 77 19 155/74 90
06/08/24 09:39 06/08/24 13:00 06/08/24 13:00 06/08/24 12:00 06/08/24 10:45
<Kylee Norton MD - Last Filed: 06/08/24 10:19>
Orders/Labs/Results
Orders:
Orders
06/08/24 09:28
Electrocardiogram (*1) Urgent
Reason for Study: Chest Pain
EKG- Treatment ONCE
06/08/24 10:07
IV Insert/Care/Rem.- Treatment PRN
06/08/24 10:08
Complete Blood Count/With Diff Urgent
Comprehensive Metabolic Panel Urgent
Lipase Urgent
Comment: LIPASE ADDED ON BY FLOOR 10:40AM 06-08-24
06/08/24 10:10
Morphine Sulfate 4 mg IV NOW STA
06/08/24 10:11
CT Chest/abd/pelvis Angio W/wo Urgent
Comment:
Reason For Exam: midsternal tearing chest pain
06/08/24 10:14
Type+Screen Urgent
NT-proBNP Urgent
PTT Urgent
Prothrombin Time Urgent
Troponin I Urgent
06/08/24 10:36
Electrocardiogram (*1) Urgent
Reason for Study: Chest Pain
EKG- Treatment ONCE
06/08/24 10:40
Add On- LAB Urgent
Tests Added?: lipase
06/08/24 10:41
HYDROmorphone [Dilaudid] 0.5 mg IV NOW STA
06/08/24 10:55
HYDROmorphone [Dilaudid] 0.5 mg IV NOW STA
Pantoprazole [Protonix IV] 40 mg IV NOW STA
06/08/24 11:10
Nitroglycerin Ointment [Nitro-Bid] 0.5 inch TOPICAL NOW STA
06/08/24 12:08
Metoprolol [Lopressor] 2.5 mg IV NOW STA
06/08/24 12:13
Bladder Scan As Directed
Follow Bladder Retention/Intermittent Cath Algorithm?: Yes
PRN if no void in __ hours: 6
Frequency: Per Retention Algorithm
If Bladder Scan Result >: 400
then:: Straight cath
06/08/24 12:14
Straight Cath As Directed
Frequency: Per Retention Algorithm
Additional Instructions: straight cath as needed per acute urinary retention algorithm for 24 hrs
Additional Instructions: for bladder scan greater than 400 mL
06/08/24 12:26
Lactic Acid Q4H
Comment: CANCEL 2nd LACTIC ACID IF 1st LACTIC ACID IS LESS THAN 2
UA Reflex to Culture [Urinalysis Reflex To Culture] Urgent
Date Specimen was Collected: 06/08/24
Time Specimen was Collected: 12:22
06/08/24 12:37
US Abdomen Complete/Upper Urgent
Reason For Exam: abdominal pain, mild gallbladder distention on CT
06/08/24 12:[address] Non Medication Order As Directed
Physician Order: notify MD when med rec done
06/08/24 12:39
Procalcitonin Urgent
PCT Algorithmm Indication: Respiratory
06/08/24 12:41
Admit/Transfer Patient As Directed
Co-Sign Provider:
Level of Care: Inpatient admission
Assign to:: IMU- Intermediate Care
Physician / Group: asuncion nichols
Diagnosis: Intractable chest pain/abdominal pain
Reason for Hospitalization: Intractable chest pain/abdominal pain
Expected length of stay greater than two midnights?: Yes
ELOS- Estimated Length of Stay in days: 3
I certify the patient meets the requirements for IP care: Yes
PRN Pain Medication Management As Directed
May give lesser potent ordered pain med per pt: Yes
preference::
Protocol:: Medication orders for pain may be administered in a
manner that supports deferring to patient preference
when the pt is:
- Requesting an ordered lesser potent pain medication.
Least to most potent pain medications are defined
as: acetaminophen < NSAID < tramadol < opioids
(morphine, oxycodone, hydromorphone).
- Requesting a lesser dose of the same medication IF
ORDERED.
- Requesting a less intrusive route of administration
if both routes are prescribed by the provider (PO <
IV).
06/08/24 12:42
Code Status As Directed
Resuscitation Status: Full Code
06/08/24 12:46
CARDIOLOGY CONSULT Urgent
Consulting Provider: George Parker
Was physician already notified: Yes
Vascular Surgery Consult Urgent
Consulting Provider: Zachariah Berumen III
Was physician already notified: Yes
06/08/24 12:48
Incentive Spirometry [Rx Incentive Spirometry] [RESP] Urgent
Frequency: q1h while awake
06/08/24 12:57
Nitroglycerin Sublingual [Nitrostat (Sublingual)] 0.4 mg SL [id number] PRN
06/08/24 13:07
Dextrose 50%-Water [Dextrose 50% Syringe] 12.5 grams IV [id number] PRN
Glucagon [GlucaGen] 1 mg IM PRN PRN
Bedside Glucose Monitoring As Directed
Frequency: AC&HS
Additional Instructions:: Change to q6h if pt on TPN, tube feeding or not eating
06/08/24 13:51
Zinc Oxide 20% [Zinc Oxide Ointment] See Dose Instructions TOPICAL DAILYPRN PRN
06/08/24 14:00
Piperacillin/Tazo 3.375 Gram [Zosyn] 3.375 gram in 50 ml IV Q6H
06/08/24 15:00
HYDROmorphone [Dilaudid] 0.5 mg IV Q4HPRN PRN
06/08/24 16:00
Lactic Acid Q4H
Comment: CANCEL 2nd LACTIC ACID IF 1st LACTIC ACID IS LESS THAN 2
06/08/24 16:30
Insulin Aspart Corrective Low [Novolog Flexpen-Low Resistance] See Protocol SC AC
06/08/24 18:00
Sennosides [Senokot] 8.6 mg PO QPM
Sertraline HCl [Zoloft] 25 mg PO QPM
06/08/24 20:00
Apixaban [Eliquis] 5 mg PO BID
Mycophenolate Mofetil 1,000 mg PO BID
06/08/24 22:00
Rosuvastatin Calcium [Crestor] 20 mg PO HS
06/09/24 06:00
Glycohemoglobin (HgbA1c) IN AM
Levothyroxine [Synthroid] 100 mcg PO DAILY @ 0600
06/09/24 08:00
0.9% Sodium Chloride [Nss (Preservative Free)] 10 ml IV DAILY
Furosemide [Lasix] 40 mg PO DAILY
Metoprolol Xl [Toprol Xl] 25 mg PO DAILY
Pantoprazole [Protonix IV] 40 mg IV DAILY
Polyethylene Glycol Powder [Miralax] 17 grams PO DAILY
Prednisone [Deltasone] 20 mg PO DAILY
azelastine 2 spray NASAL DAILY
Abnormal Lab Results
06/08/24 06/08/24 06/08/24
: 10:14 12:26
RBC 3.68 L 10^6/uL
(4.70-6.10)
Hgb 10.7 L g/dL
(13.0-18.0)
Hct 35.0 L %
(39.0-52.0)
MCV 95.1 H fL
(80.0-94.0)
MCHC 30.6 L g/dL
(33.0-37.0)
RDW 17.2 H %
(11.5-14.5)
Abs Immat Gran (auto) 0.1 H 10^3/uL
(0-0.05)
Absolute Neuts (auto) 7.4 H 10^3/uL
(1.4-6.5)
Immature Gran % 0.7 H %
(0-0.5)
Neutrophils % 75.8 H %
(42.2-75.2)
Lymphocytes % 16.7 L %
(20.5-51.1)
PT 16.6 H Sec
(11.4-14.6)
APTT 36.6 H Sec
(23.4-35.0)
BUN 33 H mg/dl
(9-20)
Creatinine 1.4 H mg/dL
(0.7-1.3)
Glucose 183 H mg/dl
(70-99)
Lactic Acid 3.4 H mmol/L
(0.7-2.0)
Urine Glucose Trace A
(Negative)
06/08/24 10:08
06/08/24 10:08
Vital Signs
Initial and Last Documented VS:
Initial Vital Signs
Temp Pulse Resp BP Pulse Ox
98.7 F 73 16 116/72 97
06/08/24 09:39 06/08/24 09:39 06/08/24 09:39 06/08/24 09:39 06/08/24 09:39
Last Documented Vital Signs
Temp Pulse Resp BP Pulse Ox
98.7 F 77 19 155/74 90
06/08/24 09:39 06/08/24 13:00 06/08/24 13:00 06/08/24 12:00 06/08/24 10:45
<Scott Miller PA-C - Last Filed: 06/08/24 14:03>
MDM/Problems Addressed
Differential Diagnosis Includes:
Aortic dissection, acute PR, complication from recent AAA surgery, PE thought to be less likely given anticoagulated on Eliquis, GERD/gastritis, cholecystitis, pancreatitis
MDM/Problems Addressed:
89-year-old male presenting the emergency department for evaluation of severe midsternal chest pain that woke him up at 4 AM described to be tearing, radiating towards his back. Known CAD and vascular complications given recent surgery. Patient is
yelling and moaning constantly, very difficult to get a history from and having a very difficult time sitting still. Given his history I have suspicion for aortic dissection or significant aortic complication. I contacted CAT scan and patient was
brought to the CT scanner immediately. Due to the nature of patient's presentation I also notified the cardiothoracic surgery and vascular surgery in case of abnormal findings. Morphine ordered for pain control. Disposition pending
Chronic conditions affecting care: CAD
Acute Exacerbation and/or Progression of Chronic Illness: CAD
<Scott Miller PA-C - Last Filed: 06/08/24 14:03>
*Radiology
Radiology exam reviewed: radiology read reviewed
*Pulse Oximetry
Patient hypoxic: no
*EKG
Interpreted by ED Provider?: Yes
Heart Rate: 77
Rate: normal
Rhythm: PAC's
[place]: normal axis
Ischemia: no ischemia
*Director Of Regional Sales Interpretation
Rate: normal
Rhythm: sinus
*Critical Care Note
Total Time (30-74mins, 75-104mins- exclusive of procedures): 30
comment:
Critical care statement: A total of 30 minutes of critical care time was provided for this patient. This includes management of unstable vital signs, evaluation of the patient at bedside, reviewing the patient's pertinent medical records, discussion
with consultants, review of old EKGs and review of pertinent medical records. This time with separate from time utilized to perform the aforementioned documented procedures
Data Reviewed
Review of Other/Old Records Reveals: Labs, Records, Radiology Studies, Operative Reports and Discharge Summary
Source: patient, records, family and physician
<Scott Miller PA-C - Last Filed: 06/08/24 14:03>
Patient Management
Discussion with other providers: Hospitalist and Flight Service Agent
Escalation/DeEscalation of care consider admission/obs:
Vascular surgery reviewed patient's CTA. There is a small NORA seen however vascular surgery does not feel that this would be the likely cause of patient's pain based off of what we are describing. Awaiting remaining labs. Patient with continued
pain despite morphine so an additional half milligram of Dilaudid ordered. Awaiting remaining labs. Patient will be admitted.
Hospitalist team is aware and accepts for continued evaluation and treatment. I also discussed case with cardiology who will consult on the patient as well. Patient was having continued pain even after the additional half milligram of Dilaudid so
an additional half milligram was ordered. We also placed Nitropaste and this did offer some relief however patient still intermittently screaming out in pain.
ED Attending Note
<Scott Miller PA-C - Last Filed: 06/08/24 14:03>
-
Portions of this chart may have been created with voice recognition software.� Occasional wrong word or��sound alike� substitutions may have occurred due to the inherent limitations of voice recognition software.
<Kylee Norton MD - Last Filed: 06/08/24 10:19>
ED Attending Note
Patient seen and examined by attending physician: Yes
I performed the substantive portion of visit, reviewed & personally made and approve the management plan that is documented in note by myself or NORAH.: Yes
ED Attending Note:
Patient is moaning in pain. Heart sounds regular. Lungs are clear. Patient complains of tearing chest pain in his center chest radiating down towards his epigastric area. He reports the pain started at 4 AM and has been constant. We are
certainly worried about aortic dissection. PE is less likely given that he is on Eliquis. Patient is emergently being sent down to CT
Discharge Plan
Departure
Patient Disposition: Admit
Date of Disposition: 06/08/24
Time of Disposition: :13
Presentation/result/management discussed w/ accepting MD/DO: Hospitalist
Discharge Problem:
Chest pain
Interventions
Interventions:
*Risk Screen - Suicide Last Done: 06/08/24 09:39
*Neglect/Abuse Screening Last Done: 06/08/24 09:39
*ED COVID-19 Vaccine History Last Done: 06/08/24 11:00
ED- Cardiac Assessment Last Done: 06/08/24 11:00
[2024-06-08 10:32] LABS: INR 1.36; PT 16.6 Sec (11.4-14.6)
[2024-06-08 10:33] LABS: APTT 36.6 Sec (23.4-35.0)
[2024-06-08 10:41] LABS: ALT (SGPT) 20 U/L (0-50); AST (SGOT) 22 U/L (17-59); Albumin 3.8 g/dl (3.5-5.0); Alkaline Phosphatase 71 U/L (38-126); Blood Urea Nitrogen 33 mg/dl (9-20); Calcium 9.7 mg/dl (8.4-10.2); Carbon Dioxide 26 mmol/L (22-30); Chloride 102 mmol/L (98-107); Glucose 183 mg/dl (70-99); Potassium 3.9 mmol/L (3.5-5.1); Sodium 143 mmol/L (135-145); Total Bilirubin 0.5 mg/dl (0.2-1.3); Total Protein 6.3 g/dl (6.3-8.2); eGFR 48.65
[2024-06-08] MEDS: DILAUDID 0.5 MG IV ×4 (10:45→18:08)
[2024-06-08 10:48] LABS: % Basophils 0.1 % (0-2); % Eosinophils 0.4 % (0-6); % Immature Granulocytes 0.7 % (0-0.5); % Lymphocytes 16.7 % (20.5-51.1); % Monocytes 6.3 % (1.7-9.3); % Neutrophils 75.8 % (42.2-75.2); Absolute Immature Granulocytes 0.1 10^3/uL (0-0.05); Absolute Lymphocytes 1.6 10^3/uL (1.2-3.4); Absolute Monocytes 0.6 10^3/uL (0.1-0.6); Absolute Neutrophils 7.4 10^3/uL (1.4-6.5); Hemoglobin 10.7 g/dL (13.0-18.0); Mean Corp Hgb Conc. 30.6 g/dL (33.0-37.0); Mean Corpuscular Hgb 29.1 pg (27.0-31.0); Mean Corpuscular Volume 95.1 fL (80.0-94.0); Nucleated Red Blood Cells % 0 % (-); Platelet Count 201 10^3/uL (130-400); Red Blood Cell Count 3.68 10^6/uL (4.70-6.10); Red Cell Dist. Width 17.2 % (11.5-14.5); White Blood Cell Count 9.8 10^3/uL (4.8-10.8)
[2024-06-08 10:53] LABS: NT-proBNP 370 pg/ml
[2024-06-08] MEDS: PROTONIX IV 40 MG IV ×2 (10:58→19:24)
[2024-06-08 11:04] LABS: Lipase 270 U/L (23-300)
[2024-06-08] MEDS: NITRO-BID 0.5 INCH TOPICAL (11:26)
--- NOTE | 2024-06-08 12:24 | PHANOTE ---
MED REC TECH NOTE- called robin at [facility] at [phone] for them to fax patient senior care med list over.
[2024-06-08] MEDS: LOPRESSOR 2.5 MG IV ×2 (12:40→19:24)
[2024-06-08 12:46] LABS: Urine Albumin Trace (Neg - Trace); Urine Bilirubin Negative (Negative); Urine Character Clear (Clear); Urine Color Yellow; Urine Glucose Trace (Negative); Urine Ketone Negative (Negative); Urine Leukocyte Negative (Negative); Urine Nitrite Negative (Negative); Urine Occult Blood Negative (Negative); Urine Urobilinogen Negative (Neg - 1+)
--- NOTE | 2024-06-08 12:49 | HPS.HSE ---
Addendum entered and electronically signed by Manas Gold MD 06/08/24 15:48:
Correction: Discussed with son, patient is DNR. Code status updated.
Original Note:
Family Physician
-
Family Physician: Van John
Chief Complaint
-
chest pain,abdominal pain
History of Present Illness
89-year-old male with past medical history of severe CAD, CHF with reduced EF, ischemic cardiomyopathy, PAD, AAA status post EVAR with Dr. Berumen, Pseudomonas UTI, hypothyroidism, paroxysmal atrial fibrillation, interstitial lung disease, type 2
diabetes mellitus, rheumatoid arthritis, insomnia came to the hospital with midsternal chest pain that began earlier this morning. Patient has been having increased amount of pain worse with deep inspiration describing as a tearing sensation. CT
scan was done in the ED which did not show any dissection. Vascular surgery and cardiology involved. Per patient denies fever/chills
Medical History
Past Medical History
Past Medical History: Reports Arrhythmia, CAD, CHF, HTN, Hypercholesterolemia, Hypothyroidism and NIDDM
Past Surgical History: Reports Other
Additional Past Surgical History:
vascular
Social History
Tobacco: Smoker
Alcohol: None
Family History
Family History: Not pertinent
Allergies / Home Medications
Allergies reflects when Allergies were last updated in [facility].
Home Medications with original date entered in [facility]
Allergy/Medication List:
Allergies
Allergy/AdvReac Type Severity Reaction Status Date / Time
codeine Allergy Vomiting Verified 04/19/24 15:29
Home Medications
alogliptin 25 mg tablet 25 mg PO DAILY Diabetes 03/03/24
docusate sodium 100 mg tablet 200 mg PO BID Constipation 03/03/24
furosemide 40 mg tablet 40 mg PO DAILY Fluid Retention/Swelling 03/03/24
levothyroxine 100 mcg capsule 100 mcg PO DAILY Thyroid 03/03/24
metoprolol succinate 25 mg tablet,extended release 24 hr 25 mg PO DAILY Heart Disease/Condition 03/03/24
mycophenolate mofetil 500 mg tablet 1,000 mg PO BID IMMUNOSUPRESSANT 03/03/24
prednisone 20 mg tablet 20 mg PO DAILY Anti-Inflammatory 03/03/24
rosuvastatin 20 mg tablet 20 mg PO HS High Cholesterol 03/03/24
sennosides 8.6 mg tablet (senna) 8.6 mg PO QPM Constipation 03/03/24
sertraline 25 mg tablet 25 mg PO QPM Depression 03/03/24
sulfamethoxazole 800 mg-trimethoprim 160 mg tablet 1 tab PO MOWEFR Infection 03/03/24
Del Menstrual 50 Plus 1 tab PO DAILY Supplement 04/10/24
glucosamine 750 [id number] no1 644 mg-C 30 mg-nissa 1 mg tablet (Osteo Bi-Flex Triple Strength) 1 tab PO BID Supplement 04/10/24
lisinopril 5 mg tablet 5 mg PO DAILY Blood Pressure 04/10/24
apixaban 5 mg tablet (Eliquis) 5 mg PO BID AFib 04/19/24
acetaminophen 325 mg tablet 650 mg (2 x 325 mg) PO Q4HPRN PRN mild pain /fever >100.4 #1 tab 04/29/24
polyethylene glycol 3350 17 gram oral powder packet (HealthyLax) 17 g PO DAILY #30 ea 04/29/24
azelastine 137 mcg (0.1 %) nasal spray 2 spray intranasal DAILY 06/08/24
gabapentin 300 mg capsule 300 mg PO BID 06/08/24
miconazole nitrate 2 % topical cream 1 applic topical BID rash 06/08/24
nitroglycerin 0.4 mg sublingual tablet (Nitrostat) 0.4 mg sublingual [id number] PRN chest pains 06/08/24
zinc oxide 12 % topical cream ([place] Protect (zinc oxide)) 1 applic topical BID buttock 06/08/24
zinc oxide 12 % topical cream ([place] Protect (zinc oxide)) 1 applic topical DAILYPRN PRN buttocks 06/08/24
Review of Systems
-
History Source: Patient and Family
A 12 point ROS was completed and negative except as noted: Yes
Cardiac: Reports Chest Pain
Abdomen/GI: Reports Abdominal Pain
Physical Exam
Vital Signs
Vital Signs
Temp Pulse Resp BP Pulse Ox
98.7 F 73 16 116/72 97
06/08/24 09:39 06/08/24 09:39 06/08/24 09:39 06/08/24 09:39 06/08/24 09:39
Physical Exam
General: No Apparent Distress and Comfortable
HEENT: Anicteric and Moist mucous membranes
Respiratory: Clear and Non Labored Respirations; No Wheezes
Cardiac: S1/S2 and Regular Rhythm
Breast: Deferred by me
GI: Soft, Non Tender and Non Distended
Genito-urinary: No Berumen
Musculoskeletal: No Edema
Neuro: Awake and Alert
Psych: Anxious
Laboratory Results
-
06/08/24 10:08
06/08/24 10:08
Laboratory Results
PT 16.6 Sec (11.4-14.6) H 06/08/24 10:14
INR 1.36 06/08/24 10:14
APTT 36.6 Sec (23.4-35.0) H 06/08/24 10:14
Total Bilirubin 0.5 mg/dl (0.2-1.3) 06/08/24 10:08
AST 22 U/L (17-59) 06/08/24 10:08
ALT 20 U/L (0-50) 06/08/24 10:08
Alkaline Phosphatase 71 U/L (38-126) 06/08/24 10:08
Troponin I 0.030 ng/ml 06/08/24 10:14
Lipase 270 U/L (23-300) 06/08/24 10:08
Data Reviewed
-
CT Scan: Report Reviewed by me, Discussed with Physician, Discussed with Patient and Discussed with Family
Impression/Plan
-
Intractable chest pain/epigastric pain, etiology unknown
Will trend troponin, has history of CAD which has been medically managed
Nitro as needed
Pain control
CT noted, cardiology already discussed with vascular surgery and does not appear to have any aortic dissection. Concern would still be high. Defer MRI to vascular. Vascular consulted
Recent AAA endovascular repair by Dr. Berumen
Will check ultrasound of the abdomen, mild gallbladder distention noted on CT however does have normal LFTs, bili
Check Pro-Berto, add Zosyn
AAA-s/p endovascular repair 04/[address] Berumen
monitor
Multivessel CAD
Cardiology following
On Eliquis, statin, Toprol
NIKO
Continue to monitor
UA
Bladder scan
Hold lisinopril
CHF with reduced EF and ischemic cardiomyopathy
Does not appear to be volume overloaded
Continue usual Lasix, hold lisinopril
Interstitial lung disease, pulmonary fibrosis
Monitor
Type 2 diabetes mellitus
A1c, sliding scale
History of rheumatoid arthritis on chronic steroid and associated Bactrim prophylaxis
Hold Bactrim
Hypothyroidism
Continue Synthroid
Insomnia
DVT prophylaxis
Eliquis
Full code
Discussed with son at bedside
I spent a total of 78 minutes with the patient or on the floor. More than 50% of this time involved counseling and coordination of care.
--- NOTE | 2024-06-08 12:56 | CON.CAR ---
Consultation
Consultation Request
Date/Time Consultation Requested: 06/08/2024
Date/Time Consultation Performed: 06/08/2024
Requesting Provider: Hospitalist
Performing Provider: Dr. Parker
Reason for Consultation: Chest pain
Medical History
-
History of Present Illness:
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
.
89-year-old male with a history of multivessel coronary artery disease, ischemic cardiomyopathy with ejection fraction 35 to 40%, paroxysmal atrial fibrillation, EVAR 04/21/[address] Berumen patient presented with chest pain. Most of the history
obtained in discussion with the son. Patient provide a limited history after pain meds
Patient apparently was in his usual state of health yesterday. He had visited the patient's son no complaints at that time including no chest pain or shortness of breath. This morning he called his son because he was having right shoulder pain
which he thought was just a shoulder problem but then developed chest discomfort in the mid chest down to the epigastrium. Patient continued have the symptoms in the ER ended. He could not get comfortable worse with deep inspiration. Pain
reportedly tends to come in waves. When I woke him up to do a physical exam he periodically would yell out because he was uncomfortable he said it was worse to take a deep breath but was able to roll over in bed without symptoms. Patient evaluated
by ER staff and had CT of the chest and abdomen. EVAR appeared to be stable. No evidence of aortic dissection. I reviewed the study with radiology and also discussed with vascular surgery. No evidence of dissection and study was felt to be good
quality.
No evidence of coronary ischemia first troponin negative.
Note patient had been seen by our group during a hospitalization for his EVAR we did did get consulted for chest discomfort which was in the lower portion of his sternum and epigastrium with inspiration which was felt to be atypical and not related
to coronary ischemia. Exact etiology at that time not determined. Symptoms today are more severe in intensity and appear to be higher up in the chest and what is previously described on last admission.
Past medical history
Paroxysmal atrial fibrillation
Multivessel coronary artery disease
Ischemic cardiomyopathy with an ejection fraction of 35 to 40%
EVAR 04/21/[address] Berumen
History of osteomyelitis
hypertension
hypercholesterolemia
rheumatoid arthritis
Interstitial lung disease
Past Medical History
Past Medical History: Other ( )
Social History
Tobacco: Former Smoker
Family History
Family History: Reviewed & Not Pertinent
Allergies / Home Medications
Allergy/AdvReac Type Severity Reaction Status Date / Time
codeine Allergy Vomiting Verified 04/19/24 15:29
�Medication �Instructions �Recorded �Confirmed �Type
alogliptin 25 mg tablet 25 mg PO DAILY Diabetes 03/03/24 06/08/24 History
docusate sodium 100 mg tablet 200 mg PO BID Constipation 03/03/24 06/08/24 History
furosemide 40 mg tablet 40 mg PO DAILY Fluid 03/03/24 06/08/24 History
Retention/Swelling
levothyroxine 100 mcg capsule 100 mcg PO DAILY Thyroid 03/03/24 06/08/24 History
metoprolol succinate 25 mg 25 mg PO DAILY Heart 03/03/24 06/08/24 History
tablet,extended release 24 hr Disease/Condition
mycophenolate mofetil 500 mg tablet 1,000 mg PO BID IMMUNOSUPRESSANT 03/03/24 06/08/24 History
nitroglycerin 0.4 mg sublingual 0.4 mg sublingual [id number] PRN 03/03/24 04/19/24 History
tablet angina
prednisone 20 mg tablet 20 mg PO DAILY Anti-Inflammatory 03/03/24 06/08/24 History
rosuvastatin 20 mg tablet 20 mg PO HS High Cholesterol 03/03/24 06/08/24 History
sennosides 8.6 mg tablet (senna) 8.6 mg PO QPM Constipation 03/03/24 06/08/24 History
sertraline 25 mg tablet 25 mg PO QPM Depression 03/03/24 06/08/24 History
sulfamethoxazole 800 1 tab PO MOWEFR Infection 03/03/24 06/08/24 History
mg-trimethoprim 160 mg tablet
Del Menstrual 50 Plus 1 tab PO DAILY Supplement 04/10/24 06/08/24 History
glucosamine 750 [id number] 1 tab PO BID Supplement 04/10/24 06/08/24 History
no1 644 mg-C 30 mg-nissa 1 mg
tablet (Osteo Bi-Flex Triple
Strength)
lisinopril 5 mg tablet 5 mg PO DAILY Blood Pressure 04/10/24 06/08/24 History
apixaban 5 mg tablet (Eliquis) 5 mg PO BID AFib 04/19/24 06/08/24 History
acetaminophen 325 mg tablet 650 mg (2 x 325 mg) PO Q4HPRN PRN 04/29/24 06/08/24 Rx
mild pain /fever >100.4 #1 tab
polyethylene glycol 3350 17 gram 17 g PO DAILY #30 ea 04/29/24 06/08/24 Rx
oral powder packet (HealthyLax)
azelastine 137 mcg (0.1 %) nasal 2 spray intranasal DAILY 06/08/24 06/08/24 History
spray
gabapentin 300 mg capsule 300 mg PO BID 06/08/24 06/08/24 History
miconazole nitrate 2 % topical 1 applic topical BID rash 06/08/24 06/08/24 History
cream
zinc oxide 12 % topical cream 1 applic topical BID buttock 06/08/24 06/08/24 History
([place] Protect (zinc oxide))
Review of Systems
-
All other systems: Negative unless noted (Negative in discussion with son. Patient providing limited information)
Physical Exam
Vital Signs
Temp Pulse Resp BP Pulse Ox
98.7 F 73 16 116/72 97
06/08/24 09:39 06/08/24 09:39 06/08/24 09:39 06/08/24 09:39 06/08/24 09:39
Lab Results
06/08/24 10:08
06/08/24 10:08
Troponin I 0.030 ng/ml 06/08/24 10:14
Pgx-B-Dyquoqsvved Pept 370 pg/ml 06/08/24 10:14
Physical Exam
General: Well Developed, Well Nourished and Other (Patient sleeping when I came in and had received pain medication but was arousable was able to answer some questions about pain.)
HEENT: Normocephalic, Anicteric and Other (External ear and oral exam unremarkable necks without adenopathy no JVD no carotid bruit)
Respiratory: Other (No wheezes rales or rhonchi. )
Cardiac: Regular Rhythm and Other (No murmur rub or gallop)
GI: Soft
Musculoskeletal: No Clubbing and No Cyanosis
Neuro: Oriented and Other (Mental status as above. Arousable but was sleepy. Had received pain meds)
Psych: Calm
Impression / Plan
-
.
Chest pain.
-Patient with significant chest pain worse with inspiration also has had shoulder pain exact etiology unclear. No clear evidence of coronary ischemia based on ECG and troponin. Also description of pain being worse with inspiration not consistent
with angina. With patient's prior vascular history as well as history of EVAR patient underwent CT scan of the chest and abdomen. Good quality study. No clear etiology noted. No dissection. Reviewed with radiology and vascular surgery.
-Pain control
-Management of blood pressure and heart rate
-Echo
-Vascular consultation
.
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
-Last catheterization 03/07/2024 left main normal, LAD 60 to 70% proximal LAD stenosis spanning takeoff of D1-D2 occluded left circumflex diffuse noncritical disease RCA total occlusion of RCA bridging collaterals with sluggish flow of disease distal
RCA faint [id number] collaterals
-ECG without ischemic changes
-Serial troponins
.
PAF. Stable. Currently in sinus
-Monitor on telemetry
.
History of EVAR 03/2024
-Followed by vascular
.
Hypercholesterolemia statin.
Data Reviewed
-
EKG: Report Reviewed by me and Discussed with Physician
Radiology: Report Reviewed by me and Discussed with Physician
Medical Tests (Nuc Med, Echo etc): Report Reviewed by me
Labs: Labs Reviewed by me
[2024-06-08 12:58] LABS: Lactic Acid 3.4 mmol/L (0.7-2.0)
[2024-06-08] MEDS: NSS 1000 IV (15:33)
[2024-06-08] MEDS: ZOSYN 50 IV ×2 (15:37→19:44)
[2024-06-08 16:11] LABS: Lactic Acid 1.9 mmol/L (0.7-2.0)
--- NOTE | 2024-06-08 16:25 | PTCARENOTE ---
Patient arrived to unit via stretcher, he is drowsy but arouses with a groan to verbal and tactile stimuli. with multiple verbal requests he will answer some questions with one or 2 word responses, he then doses off to sleep. Son westley is at bedside
and reports that pt is generally awake and active. he lives in an assisted living facility but has outings and spent the day with son yesterday, they had cheese steaks for dinner last night and pt had no complaints of abdominal or chest pain at that
time. Pt did c/o to son last evening of rt shoulder pain but nothing extreme. Pt arouses intermittently with a yell or cry out of pain. He is quite drowsy but will give verbal responses when prompted. He will follow simple commands such as lift arms
or open eyes. Bilateral dusky hand color which son reports as his normal. pulses are palpable but pulse ox moved to ear for improved readings. Abdomen is distended and slightly firm, Hypo active bowel tones. pt tells me that it is a bit more than
usual. It is reported that he had a BM in the Emergency Room this morning. No urine output upon arrival, will monitor. IVF initiated and IV abx given. Labs drawn, ECHO completed at bedside. Son reports that pt is a DNR, Dr. Gold notified.
[2024-06-08 16:31] LABS: Troponin I 0.039 ng/ml
[2024-06-08] MEDS: NOVOLOG FLEXPEN-LOW RESISTANCE SC (17:10)
[2024-06-08] MEDS: DEXTROSE 50% SYRINGE 12.5 GRAMS IV ×2 (17:13→17:37)
[2024-06-08 17:20] LABS: Glucose - Point of Care 62 mg/dl (70-99)
[2024-06-08] MEDS: NITROSTAT (SUBLINGUAL) 0.4 MG SL (17:43)
[2024-06-08 17:50] LABS: Glucose - Point of Care 63 mg/dl (70-99)
[2024-06-08 18:13] LABS: Glucose - Point of Care 204 mg/dl (70-99)
[2024-06-08] MEDS: SENOKOT PO (18:15)
[2024-06-08] MEDS: ZOLOFT PO (18:15)
[2024-06-08] MEDS: NSS (PRESERVATIVE FREE) 10 ML IV (19:25)
--- NOTE | 2024-06-08 19:30 | PTCARENOTE ---
Patient c/o severe chest pain rating it '34' and yells out with 'sharp ' pain in epigastric region. 1 nitro sublingual given, IV Dilaudid given and EKG completed. updated dr. Gold and Keith, orders obtained for Protonix and Lopressor. Dr. ruiz
to unit to review plan of care and no further changes at this time. Pt also had hypoglycemia treatment per protocol and Bladder scan with st cath per protocol. Pt appears more comfortable, dozing at intervals, resp appear more comfortable.Pt does
awaken and follow commands, he tends to keep eyes closed and needs cues to open them for assessment purposes. Son updated on current treatments and medications given.
[2024-06-08 20:01] LABS: Glucose - Point of Care 138 mg/dl (70-99)
[2024-06-08] MEDS: ELIQUIS 5 MG PO (21:30)
[2024-06-08] MEDS: CELLCEPT 1000 MG PO (21:31)
[2024-06-08] MEDS: LOPRESSOR 12.5 MG PO (21:31)
[2024-06-08] MEDS: NEURONTIN 300 MG PO (21:31)
[2024-06-08] MEDS: CRESTOR 20 MG PO (21:31)
[2024-06-08 22:09] LABS: Troponin I 0.053 ng/ml
[2024-06-08 23:56] LABS: Glucose - Point of Care 162 mg/dl (70-99)
[2024-06-09] VITALS (24 sets, daily range): BP systolic 84–150; BP diastolic 52–118; BMI 28.8
[2024-06-09] MEDS: ZOSYN 50 IV ×4 (01:41→20:40)
[2024-06-09] MEDS: DILAUDID 0.5 MG IV ×2 (04:05→08:01)
[2024-06-09] MEDS: SYNTHROID 100 MCG PO (04:19)
--- NOTE | 2024-06-09 04:29 | PTCARENOTE ---
Assumed care of Pt at shift change; Pt asleep in bed. Arouses to voice but becomes tearful and calls out when woken up or when providing care. AAO x 2; NSR with PAC's on monitor. Remains on 2L O2, SpO2 = 96%; VSS; Will continue to monitor and
assess.
[2024-06-09 04:48] LABS: % Basophils 0.1 % (0-2); % Eosinophils 0.5 % (0-6); % Immature Granulocytes 1.2 % (0-0.5); % Lymphocytes 10.3 % (20.5-51.1); % Neutrophils 81.9 % (42.2-75.2); Absolute Eosinophils 0.1 10^3/uL (0-0.7); Absolute Immature Granulocytes 0.1 10^3/uL (0-0.05); Absolute Lymphocytes 0.9 10^3/uL (1.2-3.4); Absolute Monocytes 0.6 10^3/uL (0.1-0.6); Absolute Neutrophils 7.5 10^3/uL (1.4-6.5); Hematocrit 33.4 % (39.0-52.0); Hemoglobin 10.6 g/dL (13.0-18.0); Mean Corp Hgb Conc. 31.7 g/dL (33.0-37.0); Mean Corpuscular Hgb 30.1 pg (27.0-31.0); Mean Corpuscular Volume 94.9 fL (80.0-94.0); Mean Platelet Volume 9.5 fL (7.4-10.4); Nucleated Red Blood Cells % 0 % (-); Platelet Count 176 10^3/uL (130-400); Red Blood Cell Count 3.52 10^6/uL (4.70-6.10); Red Cell Dist. Width 17.5 % (11.5-14.5); White Blood Cell Count 9.2 10^3/uL (4.8-10.8)
[2024-06-09 05:04] LABS: ALT (SGPT) 17 U/L (0-50); AST (SGOT) 19 U/L (17-59); Albumin 3.2 g/dl (3.5-5.0); Alkaline Phosphatase 61 U/L (38-126); Blood Urea Nitrogen 32 mg/dl (9-20); Calcium 8.7 mg/dl (8.4-10.2); Carbon Dioxide 24 mmol/L (22-30); Chloride 103 mmol/L (98-107); Estimated Creatinine Clearance 37 ml/min; Glucose 170 mg/dl (70-99); Potassium 4.5 mmol/L (3.5-5.1); Sodium 139 mmol/L (135-145); Total Bilirubin 0.8 mg/dl (0.2-1.3); Total Protein 5.6 g/dl (6.3-8.2); eGFR 44.78
[2024-06-09 05:15] LABS: Troponin I 0.059 ng/ml
[2024-06-09 05:50] LABS: Glucose - Point of Care 180 mg/dl (70-99)
[2024-06-09] MEDS: LOPRESSOR 2.5 MG IV (06:05)
--- NOTE | 2024-06-09 06:18 | PTCARENOTE ---
Pt became tachycardic while sleeping with rate ~ 120-140's. EKG done showing A-Fib with RVR. Pt reports mild chest pain, however states this has been constant since admission and that it has improved since yesterday. House provider notified and
received order for IV Lopressor 2.5mg. Will continue to monitor and assess.
[2024-06-09] MEDS: LOPRESSOR 12.5 MG PO ×2 (08:02→20:39)
[2024-06-09] MEDS: PROTONIX IV 40 MG IV ×2 (08:02→20:34)
[2024-06-09] MEDS: NSS (PRESERVATIVE FREE) 10 ML IV ×2 (08:02→20:35)
[2024-06-09] MEDS: LASIX 40 MG PO (08:02)
[2024-06-09] MEDS: ELIQUIS 5 MG PO (08:02)
[2024-06-09] MEDS: NEURONTIN 300 MG PO ×2 (08:03→20:39)
[2024-06-09] MEDS: MIRALAX 17 GRAMS PO (08:03)
[2024-06-09] MEDS: DELTASONE 20 MG PO (08:03)
[2024-06-09] MEDS: CELLCEPT 1000 MG PO ×2 (08:03→20:39)
--- NOTE | 2024-06-09 08:31 | PTCARENOTE ---
Received pt this am, AF 110s-140s on tele BP 146/93 crying moaning pain 8/10 non specific chest abdomen/ RR 34. Dilaudid given, am meds and bladder scanned and straight cath performed 375ml output. Still moaning and cursing at himself. Thankful
to staff. Dr. Parker present - awaiting orders.
--- NOTE | 2024-06-09 08:40 | W.PN.CD ---
Today's Communication / Plan
-
Pain improved but still with discomfort . Etiology unclear.
- in sinus on admit and converted to afib
- IV cardizme stat 06/09/24
on Eliquis but may hold as we assess what cause of symptoms are. May also changeto IV Heparin
await vascular reassessment
Continue PPI
Consider GI consult
Consider additional imaging can get vascular imput regrading timing and modality
Impression / Plan
-
.
Chest pain.
-Patient with significant chest pain worse with inspiration also has had shoulder pain exact etiology unclear. No clear evidence of coronary ischemia based on ECG and troponin. Also description of pain being worse with inspiration not consistent
with angina. With patient's prior vascular history as well as history of EVAR patient underwent CT scan of the chest and abdomen. Good quality study. No clear etiology noted. No dissection. Reviewed results with radiology and vascular surgery.
Patient still with discomfort whihc is less than yesterday.
-Pain control
-Management of blood pressure and heart rate
-Vascular consultation
.
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
-Last catheterization 03/07/2024 left main normal, LAD 60 to 70% proximal LAD stenosis spanning takeoff of D1-D2 occluded left circumflex diffuse noncritical disease RCA total occlusion of RCA bridging collaterals with sluggish flow of disease distal
RCA faint [id number]-va-qcwju collaterals
-ECG without ischemic changes
-Serial troponins
CM = previously with moderately reduce LVF. Echo yesterdayw ith EF approxiamtely 50% with no new wall motion abnormalities
- monitor volume status
.
PAF. Stable.
- in sinus on admit and converted to afib
- IV cardizme stat 06/09/24
-Monitor on telemetry
.
History of EVAR 03/2024
-Followed by vascular
.
Hypercholesterolemia statin.
Physical Exam
Vital Signs/Labs
Vital Signs
Temp Pulse Resp BP Pulse Ox
99.2 F 136 28 102/60 91
06/09/24 07:05 06/09/24 06:05 06/09/24 06:05 06/09/24 06:05 06/09/24 04:00
06/08/24 06/09/24 06/10/24
06:59 06:59 06:59
Actual Weight 93.6 kg
06/09/24 04:15
06/09/24 04:15
PT 16.6 Sec (11.4-14.6) H 06/08/24 10:14
INR 1.36 06/08/24 10:14
APTT 36.6 Sec (23.4-35.0) H 06/08/24 10:14
06/08/24
10:14
Nuc-X-Cicaunymhuf Pept 370
LAB Results
06/08/24 06/08/24 06/08/24
10:14 15:54 21:37
Troponin I 0.030 0.039 H* D 0.053 H* D
06/09/24
04:15
Troponin I 0.059 H*
Physical Exam
Constitutional: No acute distress
Cardiovascular: Rhythm/rate is irregular
Respiratory: Wheeze Absent, Rhonchi Absent and Other (few crackles at base)
GI: Soft, Non tender and Other (hsm)
Neuro/Psych: Alert, Oriented and AO x 3
Other: Skin and Cath Site
Data Reviewed
-
Date of Service: June 09, 2024
[2024-06-09 08:46] LABS: Glucose - Point of Care 112 mg/dl (70-99)
--- NOTE | 2024-06-09 09:06 | CON.VAS ---
Consultation
Consultation Request
Date/Time Consultation Performed: 06/09/24 0920
Requesting Provider: Hospitalist
Performing Provider: Sara Bhatti, VANE-C for Juanito Contreras MD
Reason for Consultation: Chest Pain
Medical History
-
Chief Complaint: Chest pain
History of Present Illness:
This is an 89-year-old male with past medical history for atrial fibrillation, CAD, CHF, GERD, hypertension, hypercholesterolemia, AAA, and rheumatoid arthritis known to our vascular surgical group as he recently underwent EVAR for repair of AAA on
04/21/[address] Zachariah Berumen III who presented to ED on 06/08/2024 with reports of mid chest/epigastrium pain with accompanying right shoulder pain. HPI attributed by patient and chart review as patient does endorse he feels confused, 'from all
the pills they have given me.'He does endorse that pain has greatly improved since receiving pain medications and would describe it as mild mid sternum pain. He does state breathing had initially made pain worse, but now he feels as though it is
mild and unchanged with breathing. Denies nausea, vomiting, fever, chills, abdominal pain, and dysuria. Does note urinary retention. Currently, he is in atrial fibrillation with a rapid heart rate in the 130s to 140s, spoke to Dr. Parker who is
already aware and medically managing.
Past Medical History
Past Medical History: Arrhythmias, CAD, CHF, GERD, HTN, Hypercholesterolemia, IDDM, Valvular Disease and Other (AAA, RA (on mycophenolate, prednisone and prophylactic Bactrim), hearing loss)
Past Surgical History: Other (Carotid artery endarterectomy, kyphoplasty, Hemorrhoidectomy, Right TKA, Percutaneous endovascular aortic aneurysm repair using Endologix AFX device (04/21/24))
Social History
Tobacco: Former Smoker
Alcohol: None
Drug: None
Living: Assisted Living
Allergies / Home Medications
Allergy/AdvReac Type Severity Reaction Status Date / Time
codeine Allergy Vomiting Verified 04/19/24 15:29
�Medication �Instructions �Recorded �Confirmed �Type
alogliptin 25 mg tablet 25 mg PO DAILY Diabetes 03/03/24 06/08/24 History
docusate sodium 100 mg tablet 200 mg PO BID Constipation 03/03/24 06/08/24 History
furosemide 40 mg tablet 40 mg PO DAILY Fluid 03/03/24 06/08/24 History
Retention/Swelling
levothyroxine 100 mcg capsule 100 mcg PO DAILY Thyroid 03/03/24 06/08/24 History
metoprolol succinate 25 mg 25 mg PO DAILY Heart 03/03/24 06/08/24 History
tablet,extended release 24 hr Disease/Condition
mycophenolate mofetil 500 mg tablet 1,000 mg PO BID IMMUNOSUPRESSANT 03/03/24 06/08/24 History
prednisone 20 mg tablet 20 mg PO DAILY Anti-Inflammatory 03/03/24 06/08/24 History
rosuvastatin 20 mg tablet 20 mg PO HS High Cholesterol 03/03/24 06/08/24 History
sennosides 8.6 mg tablet (senna) 8.6 mg PO QPM Constipation 03/03/24 06/08/24 History
sertraline 25 mg tablet 25 mg PO QPM Depression 03/03/24 06/08/24 History
sulfamethoxazole 800 1 tab PO MOWEFR Infection 03/03/24 06/08/24 History
mg-trimethoprim 160 mg tablet
Del Menstrual 50 Plus 1 tab PO DAILY Supplement 04/10/24 06/08/24 History
glucosamine 750 [id number] 1 tab PO BID Supplement 04/10/24 06/08/24 History
no1 644 mg-C 30 mg-nissa 1 mg
tablet (Osteo Bi-Flex Triple
Strength)
lisinopril 5 mg tablet 5 mg PO DAILY Blood Pressure 04/10/24 06/08/24 History
apixaban 5 mg tablet (Eliquis) 5 mg PO BID AFib 04/19/24 06/08/24 History
acetaminophen 325 mg tablet 650 mg (2 x 325 mg) PO Q4HPRN PRN 04/29/24 06/08/24 Rx
mild pain /fever >100.4 #1 tab
polyethylene glycol 3350 17 gram 17 g PO DAILY #30 ea 04/29/24 06/08/24 Rx
oral powder packet (HealthyLax)
azelastine 137 mcg (0.1 %) nasal 2 spray intranasal DAILY Congestion 06/08/24 06/08/24 History
spray
gabapentin 300 mg capsule 300 mg PO BID Pain 06/08/24 06/08/24 History
miconazole nitrate 2 % topical 1 applic topical BID rash 06/08/24 06/08/24 History
cream
nitroglycerin 0.4 mg sublingual 0.4 mg sublingual [id number] PRN 06/08/24 06/08/24 History
tablet (Nitrostat) chest pains
zinc oxide 12 % topical cream 1 applic topical BID buttock 06/08/24 06/08/24 History
(Modesot Protect (zinc oxide))
zinc oxide 12 % topical cream 1 applic topical DAILYPRN PRN 06/08/24 06/08/24 History
([place] Protect (zinc oxide)) buttocks
Review of Systems
-
History Source: Patient
Constitutional: Reports No Symptoms
EENT: Reports No Symptoms
Respiratory: Reports No Symptoms
Cardiac: Reports Chest Pain
Vascular: Denies Leg Pain / Claudication
Abdomen/GI: Reports No Symptoms
: Reports No Symptoms
Musculoskeletal: Reports No Symptoms
Skin: Reports No Symptoms
Neurological: Reports No Symptoms
Physical Exam
Vital Signs
Temp Pulse Resp BP Pulse Ox
99.2 F 136 28 102/60 91
06/09/24 07:05 06/09/24 06:05 06/09/24 06:05 06/09/24 06:05 06/09/24 04:00
Lab Results
06/09/24 04:15
06/09/24 04:15
Troponin I 0.059 ng/ml H* 06/09/24 04:15
[id number] Pept 370 pg/ml 06/08/24 10:14
Physical Exam
General: No Apparent Distress
HEENT: Normocephalic, Anicteric and Atraumatic
Respiratory: Non Labored Respirations
Cardiac: Irregular Rhythm; Negative JVD
GI: Soft, Non Tender and Non Distended
Musculoskeletal: No Edema
Skin: Warm and Dry
Neuro: Awake and Alert
Pulses: Bilateral Femoral: +2 and Bilateral Dorsalis Pedis: +2
Assessment / Plan
-
Assessment: 89-year-old male reported to [facility] on 06/08/2024 with reports of chest pain he is status post EVAR for AAA repair with Dr. Zachariah Berumen on 04/21/2024
Plan:
CT chest abdomen pelvis reviewed which demonstrates no endoleak of recent AAA repair, does note mild mixed atherosclerotic plaque of the thoracic aorta without significant stenosis may also consider small mural thrombus of arch, per review with my
attending Dr. Juanito Contreras. However, such small area would likely not drive patient's report of chest pain.
Recommend normotensive blood pressure management goals, pain management, close observation, and we can repeat scan in 24 to 48 hours to observe for worsening small mild mural thrombus along the lesser curve of the arch
Reviewed HPI, physical exam, and CT scan with attendings both Dr. Juanito Contreras and Dr. Zachariah Berumen III, who agree with above plan
[2024-06-09] MEDS: CARDIZEM 10 MG IV (09:34)
[2024-06-09] MEDS: CARDIZEM 125 IV (09:35)
[2024-06-09] MEDS: NOVOLOG FLEXPEN-LOW RESISTANCE SC ×2 (09:43→12:37)
--- NOTE | 2024-06-09 11:12 | CON.GI ---
Addendum entered and electronically signed by Bruce Earl MD 06/09/24 14:14:
I saw and examined the patient.
The PA's note was reviewed and I agree with the note.
Comment:
89 year old male with h/o pAfib on eliquis, PAD, ischemic cardiomyopathy with ejection fraction 35 to 40%, interstitial lung disease, RA on chronic prednisone and mycophenolate, CAD, HTN, DM, and AAA s/p endograft on 04/21/2024 who p/w right-sided
chest pain.
Impression / Rec:
1. Chest/abdominal pain - etiology is unclear. Sudden onset, about 7/10 in severity. Elicited by 'breathing'. Diffusely tender to palpation in abdomen, soft, no rebound. CTA was performed, no aortic dissection, no evidence of mesenteric
ischemia. Cardiology do not think this is cardiac. CT was reviewed by me, I do not see anything suggestive of fistula from endograft to bowel. Not sure if this is from GI etiology. Agree with PPI. Remains on eliquis. Agree with repeat CT if
pain worsens. Will defer endo for now.
Original Note:
Consultation
-
Date/Time Consultation Requested: 06/09/24 1043
Date/Time Consultation Performed: 06/09/24 1100
Requesting Provider: Dr. Gold
Performing Provider: Dr. Earl/TOM Lu
Reason for Consultation: abd pain
Medical History
Chief Complaint / HPI
Chief Complaint: right sided CP
History of Present Illness:
89-year-old male with past medical history of paroxysmal atrial fibrillation, PAD, ischemic cardiomyopathy with ejection fraction 35 to 40%, interstitial lung disease, rheumatoid arthritis on chronic prednisone and mycophenolate, CAD (severe
multivessel disease on medical therapy), GERD, hypertension, hypothyroidism, diabetes, abdominal aortic aneurysm status post endograft on 04/21/2024 who presents to the emergency room on Sunday morning with right-sided chest pain. Asked to evaluate
for epigastric abdominal discomfort. Patient's son is at bedside. Patient is hard of hearing. Son gives most of the history however patient is able to participate in presentation as well. The patient lives in assisted living. He went over his
son's house on Sunday evening and had dinner with his family including grandchildren. He went back home and called his son on Sunday morning complaining of right sided chest discomfort. He states that this was an 8 out of 10. He states this was
worse with taking a deep breath then. In the emergency room he had 1 episode of vomiting clear emesis. He did not have anything to eat or drink that morning. He vomited a second time in the emergency department. He did describe this pain as a
tearing sensation. He also states that he had coughing prior to this. He has had mild fevers since arrival. He also has chills. He denies any significant reflux-like symptoms. However on occasion he will have reflux. He has had none in some
time. He has never had endoscopy. Colonoscopy was many years ago. No family history of gastrointestinal malignancy or IBD. He does not utilize any NSAIDs. He is on Eliquis and continues to be on it at this time. He is on prednisone for history
of rheumatoid arthritis. He does have interstitial lung disease. He does not smoke. He does not drink any alcohol. He denies any melena, hematochezia, dysphagia or odynophagia. No early satiety or unintentional weight loss. He denies any
acholic stools or bilirubinuria. His LFTs are normal. At the present time the patient is still in discomfort. He states taking a deep breath and makes this worse. He points to his sternum. His last bowel movement was here yesterday.WBC 9.2,
hemoglobin 10.6, hematocrit 33.4, platelets 176. PT 16.6, INR 1.36, sodium 139, potassium 4.5, chloride 103, CO2 24, BUN 32, creatinine 1.5, glucose 170, hemoglobin A1c 7.0, lactic acid 1.9 down from 3.4. Total bilirubin 0.8, AST 19, ALT 17, alk
phos 61. Troponin initially 0.03 trending up to 0.039-> 0.053-> 0.05 9 repeat pending. Procalcitonin 0.30. UA negative. COVID pending.
Past Medical History
Past Medical History: Arrhythmias (Paroxysmal A-fib), CAD (PAD), CHF (Ischemic cardiomyopathy EF 35-40), COPD (Interstitial lung disease), GERD, HTN, Hypothyroidism and Other (Rheumatoid arthritis, abdominal aortic aneurysm status post endograft
(04/21/2024))
Past Surgical History: Cardiac (Endograft)
Social History
Tobacco: Non-Smoker
Alcohol: None
Drug: None
Personal: Single
Living: Assisted Living
Employment: Retired
Family History
Family History: Other (No family history of gastrointestinal malignancy or IBD)
Allergies / Home Medications
Allergy/AdvReac Type Severity Reaction Status Date / Time
codeine Allergy Vomiting Verified 04/19/24 15:29
�Medication �Instructions �Recorded
alogliptin 25 mg tablet 25 mg PO DAILY Diabetes 03/03/24
docusate sodium 100 mg tablet 200 mg PO BID Constipation 03/03/24
furosemide 40 mg tablet 40 mg PO DAILY Fluid 03/03/24
Retention/Swelling
levothyroxine 100 mcg capsule 100 mcg PO DAILY Thyroid 03/03/24
metoprolol succinate 25 mg 25 mg PO DAILY Heart 03/03/24
tablet,extended release 24 hr Disease/Condition
mycophenolate mofetil 500 mg tablet 1,000 mg PO BID IMMUNOSUPRESSANT 03/03/24
prednisone 20 mg tablet 20 mg PO DAILY Anti-Inflammatory 03/03/24
rosuvastatin 20 mg tablet 20 mg PO HS High Cholesterol 03/03/24
sennosides 8.6 mg tablet (senna) 8.6 mg PO QPM Constipation 03/03/24
sertraline 25 mg tablet 25 mg PO QPM Depression 03/03/24
sulfamethoxazole 800 1 tab PO MOWEFR Infection 03/03/24
mg-trimethoprim 160 mg tablet
Del Menstrual 50 Plus 1 tab PO DAILY Supplement 04/10/[id number] 1 tab PO BID Supplement 04/10/24
no1 644 mg-C 30 mg-nissa 1 mg
tablet (Osteo Bi-Flex Triple
Strength)
lisinopril 5 mg tablet 5 mg PO DAILY Blood Pressure 04/10/24
apixaban 5 mg tablet (Eliquis) 5 mg PO BID AFib 04/19/24
acetaminophen 325 mg tablet 650 mg (2 x 325 mg) PO Q4HPRN PRN 04/29/24
mild pain /fever >100.4 #1 tab
polyethylene glycol 3350 17 gram 17 g PO DAILY #30 ea 04/29/24
oral powder packet (HealthyLax)
azelastine 137 mcg (0.1 %) nasal 2 spray intranasal DAILY Congestion 06/08/24
spray
gabapentin 300 mg capsule 300 mg PO BID Pain 06/08/24
miconazole nitrate 2 % topical 1 applic topical BID rash 06/08/24
cream
nitroglycerin 0.4 mg sublingual 0.4 mg sublingual [id number] PRN 06/08/24
tablet (Nitrostat) chest pains
zinc oxide 12 % topical cream 1 applic topical BID buttock 06/08/24
([place] Protect (zinc oxide))
zinc oxide 12 % topical cream 1 applic topical DAILYPRN PRN 06/08/24
([place] Protect (zinc oxide)) buttocks
Review of Systems
-
All other systems: A 12 pt ROS was Negative except as stated above in HPI
Vital Signs
Temp Pulse Resp BP Pulse Ox
99.2 F 101 24 87/66 96
06/09/24 07:05 06/09/24 10:30 06/09/24 10:30 06/09/24 10:30 06/09/24 10:30
Physical Exam
Exam
General: Other (Appears uncomfortable at times, hard of hearing)
HEENT: Anicteric
Respiratory: Clear (Anterior)
Cardiac: Regular Rhythm (Tachycardic) and Murmur
GI: Soft, Non Distended, Normal Bowel Sounds and Tender (Mild diffuse tenderness)
Musculoskeletal: Edema (+1 bilateral lower extremity edema)
Skin: Warm and Dry
Neuro: AO x 3
Psych: Calm
Results
WBC 9.2 10^3/uL (4.8-10.8) 06/09/24 04:15
Hgb 10.6 g/dL (13.0-18.0) L 10 04:15
Hct 33.4 % (39.0-52.0) L 06/09/24 04:15
MCV 94.9 fL (80.0-94.0) H 06/09/24 04:15
Plt Count 176 10^3/uL (130-400) 06/09/24 04:15
Absolute Neuts (auto) 7.5 10^3/uL (1.4-6.5) H 06/09/24 04:15
PT 16.6 Sec (11.4-14.6) H 06/08/24 10:14
INR 1.36 06/08/24 10:14
APTT 36.6 Sec (23.4-35.0) H 06/08/24 10:14
Sodium 139 mmol/L (135-145) 06/09/24 04:15
Potassium 4.5 mmol/L (3.5-5.1) 06/09/24 04:15
Chloride 103 mmol/L (98-107) 06/09/24 04:15
Carbon Dioxide 24 mmol/L (22-30) 06/09/24 04:15
BUN 32 mg/dl (9-20) H 06/09/24 04:15
Creatinine 1.5 mg/dL (0.7-1.3) H 06/09/24 04:15
Calcium 8.7 mg/dl (8.4-10.2) 06/09/24 04:15
Total Bilirubin 0.8 mg/dl (0.2-1.3) 06/09/24 04:15
AST 19 U/L (17-59) 06/09/24 04:15
ALT 17 U/L (0-50) 06/09/24 04:15
Alkaline Phosphatase 61 U/L (38-126) 06/09/24 04:15
Lipase 270 U/L (23-300) 06/08/24 10:08
Diagnostic Image Results:
CT chest 06/05/2024:
1. Reticular interstitial thickening bilaterally, associated with bibasilar bronchiectasis and early honeycombing, UIP pattern.
2. Moderate coronary arterial calcification. Please correlate with symptoms of and risk factors for coronary artery disease, with further workup as clinically appropriate.
CT chest abdomen pelvis angio with and without 06/08/2024:
IMPRESSION:
1.No aortic dissection. Postoperative changes of aortobiiliac endograft with unchanged size of the excluded abdominal aortic aneurysm sac measuring 7.3 x 4.6 cm.
2. Similar appearance of the fibrotic lung changes with increased bibasilar groundglass opacities, possible atelectasis although infectious etiology could appear similar.
3. Mild distention of the gallbladder without findings suggestive of cholecystitis.
4. Prior L3 vertebroplasty with unchanged chronic compression deformity. Unchanged mild L4 compression deformity.
5. Mild colonic stool burden.
Electronically signed by De Stallworth MD, 06/08/2024 11:31 AM
Ultrasound abdomen 06/08/2024:
Normal appearance of the gallbladder with no evidence for biliary ductal dilation.
Mild hepatomegaly with no evidence for a focal hepatic lesion.
Significant shadowing from overlying bowel gas. Spleen, pancreas, upper abdominal IVC, and upper abdominal aorta are unable to be adequately visualized sonographically.
Prior GI Procedures:
EGD: Never
Colonoscopy: 'Many years ago'. Does not recall physicians.
Assessment / Plan
-
89-year-old male with past medical history of paroxysmal atrial fibrillation, PAD, ischemic cardiomyopathy with ejection fraction 35 to 40%, interstitial lung disease, rheumatoid arthritis on chronic prednisone and mycophenolate, CAD (severe
multivessel disease on medical therapy), GERD, hypertension, hypothyroidism, diabetes, abdominal aortic aneurysm status post endograft on 04/21/2024 who presents to the emergency room on Sunday morning with right-sided chest pain. Asked to evaluate
for epigastric abdominal discomfort.
Impression:
Chest pain/epigastric pain-> unknown etiology
Elevated troponin-> cardiology following
Interstitial lung disease
Rheumatoid arthritis on chronic prednisone and mycophenolate
History of endograft 04/21/2024-> vascular following
History of paroxysmal A-fib on Eliquis given this morning. Also on Cardizem with tachycardia.
CHF with reduced EF and ischemic cardiomyopathy
-- No signs of GI bleeding, no signs of gallstones, CT of the abdomen reviewed by Dr. Earl
Plan:
-Continue pantoprazole, will increase to twice daily
-Would not stop Eliquis
-If with worsening abdominal discomfort would rescan abdomen
-Further recommendations to be forthcoming
-
-
Thank you for consultation and allowing me to participate in the patient's care. Please call the sales and operations trainee GI physician during the after hours with any questions or concerns.
--- NOTE | 2024-06-09 11:39 | PTCARENOTE ---
IV Cardizem off - pt converted to NSR 85 EKG completed. Discussed with Emily Duque- will repeat Troponin. States his pain is much better.
[2024-06-09 12:35] LABS: Glucose - Point of Care 146 mg/dl (70-99)
[2024-06-09 13:18] LABS: COVID-19 Antigen Negative (Negative)
[2024-06-09 13:21] LABS: Troponin I 0.058 ng/ml
--- NOTE | 2024-06-09 13:25 | W.PN.HOSP.TC ---
Today's Communication/Plan
-
Monitor vital signs see plan
Vascular to see
Etiology of chest pain/epigastric pain unknown at this time
Continue with Cardizem drip, metoprolol
GI evaluation
Continue antibiotics for now
Monitor renal function
Assessment / Plan
Assessment / Plan
General: No Apparent Distress and Comfortable
HEENT: Anicteric and Moist mucous membranes
Respiratory: Clear and Non Labored Respirations; No Wheezes
Cardiac: S1/S2 and Regular Rhythm
GI: Soft, Non Tender and Non Distended
Genito-urinary: No Berumen
Musculoskeletal: No Edema
Neuro: Awake and Alert
Psych: Anxious
Intractable chest pain/epigastric pain, etiology unknown
Will trend troponin, has history of CAD which has been medically managed
Nitro as needed
Pain control
CT noted, cardiology already discussed with vascular surgery and does not appear to have any aortic dissection. Concern would still be high. Defer MRI to vascular. Vascular consulted
Recent AAA endovascular repair by Dr. Berumen
Ultrasound of the abdomen without cholecystitis
GI evaluation with possibility of this being GI etiology
cw Zosyn for now
CT chest with fibrotic lung with increased bibasilar groundglass opacity, could also have infectious etiology
Mild Pro-Berto elevation which could be falsely high in the setting of NIKO however given his symptoms we will treat with antibiotics for now
echo with pulm HTN; preserved EF
AAA-s/p endovascular repair 04/[address] Berumen
monitor
Elevated troponin, suspect non ischemic myocardial related injury
Multivessel CAD
Cardiology following
statin, Toprol
eliquis on hold per cardiology
Paroxysmal atrial fibrillation
Went into A-fib with RVR 06/09
Now on Cardizem drip
Metoprolol
Cardiology following
NIKO
Continue to monitor
UA
Bladder scan
Hold lisinopril
CHF with reduced EF and ischemic cardiomyopathy
Does not appear to be volume overloaded
Continue usual Lasix, hold lisinopril
Interstitial lung disease, pulmonary fibrosis
Monitor
Type 2 diabetes mellitus
A1c 7, sliding scale
History of rheumatoid arthritis on chronic steroid and associated Bactrim prophylaxis
Hold Bactrim since on zosyn
Hypothyroidism
Continue Synthroid
Insomnia
DVT prophylaxis
Eliquis
DNR
Discussed with son at bedside
I spent a total of 52 minutes with the patient or on the floor. More than 50% of this time involved counseling and coordination of care.
Anticipated Discharge: > 48 hours
Subjective/Interval History
-
Date of Service: June 09, 2024
still has pain
Objective Data
-
Labs:
Laboratory Results
06/09/24
04:15
WBC 9.2
Hgb 10.6 L
Hct 33.4 L
Plt Count 176
Sodium 139
Potassium 4.5
Chloride 103
Carbon Dioxide 24
BUN 32 H
Creatinine 1.5 H
Glucose 170 H
Calcium 8.7
Total Bilirubin 0.8
AST 19
ALT 17
Alkaline Phosphatase 61
Vital Signs:
Vital Signs
Temp Pulse Resp BP Pulse Ox
99.2 F 85 30 103/59 95
06/09/24 11:05 06/09/24 11:45 06/09/24 11:45 06/09/24 11:45 06/09/24 11:45
I&O
06/08/24 06/09/24 06/10/24
06:59 06:59 06:59
Intake Total 500 / 500
Output Total 600 / 600 375 / 375
Balance -100 / -100 -375 / -375
--- NOTE | 2024-06-09 15:42 | CM ---
Patient from [facility] with Dx Intractable chest pain/epigastric pain, Afib with RVR converted to NSR. O2 2L. Clear liquids. Receiving IV Protonix, Zosyn, IV Dilaudid prn.
Spoke with JOSE Zepeda [facility];
the patient resides alone and is A/O x3-4 and very PAIMIUT at baseline.
He has been independent in ADLs.
The patient ambulates short distances using his RW, uses his scooter for longer distances.
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
DME - RW, scooter, home O2
Current with [facility] for nurse
Pharmacy - [facility]
The son has contact with the patient & [facility].
The for report [phone], fax [phone].
CM continuing to follow.
Patient may benefit from PT Eval when closer to d/c.
CM continuing to follow for d/c needs.
Plan probable return to [facility] when medically ready.
[2024-06-09 17:32] LABS: Glucose - Point of Care 181 mg/dl (70-99)
[2024-06-09] MEDS: SENOKOT 8.6 MG PO (17:42)
[2024-06-09] MEDS: ZOLOFT 25 MG PO (17:42)
--- NOTE | 2024-06-09 18:20 | PTCARENOTE ---
Remains in NSR 70s-80, BP 90s-100s/60s. 2.5L NC LC diminished. Got up BSC this pm had +BM and voided, sat in recliner for an hour. Cherri soliman tramarcelo offered this pm. IVF capped. States pain is completely gone since he converted back to SR.
[2024-06-09] MEDS: NOVOLOG FLEXPEN-LOW RESISTANCE 1 UNITS SC (18:34)
[2024-06-09] MEDS: CRESTOR 20 MG PO (20:39)
[2024-06-09 21:45] LABS: Glucose - Point of Care 234 mg/dl (70-99)
[2024-06-10] VITALS (13 sets, daily range): BP systolic 94–147; BP diastolic 57–82; BMI 29.4
[2024-06-10] MEDS: ZOSYN 50 IV ×2 (01:37→08:56)
[2024-06-10] MEDS: SYNTHROID 100 MCG PO (04:48)
[2024-06-10 05:15] LABS: % Basophils 0.1 % (0-2); % Eosinophils 0.2 % (0-6); % Monocytes 7.1 % (1.7-9.3); % Neutrophils 82.6 % (42.2-75.2); Absolute Immature Granulocytes 0.1 10^3/uL (0-0.05); Absolute Lymphocytes 0.7 10^3/uL (1.2-3.4); Absolute Monocytes 0.6 10^3/uL (0.1-0.6); Absolute Neutrophils 6.6 10^3/uL (1.4-6.5); Hematocrit 27.3 % (39.0-52.0); Hemoglobin 8.7 g/dL (13.0-18.0); Mean Corp Hgb Conc. 31.9 g/dL (33.0-37.0); Mean Corpuscular Hgb 29.2 pg (27.0-31.0); Mean Corpuscular Volume 91.6 fL (80.0-94.0); Mean Platelet Volume 8.7 fL (7.4-10.4); Nucleated Red Blood Cells % 0 % (-); Platelet Count 161 10^3/uL (130-400); Red Blood Cell Count 2.98 10^6/uL (4.70-6.10); Red Cell Dist. Width 17.2 % (11.5-14.5)
[2024-06-10 05:35] LABS: ALT (SGPT) 14 U/L (0-50); AST (SGOT) 20 U/L (17-59); Alkaline Phosphatase 56 U/L (38-126); Blood Urea Nitrogen 35 mg/dl (9-20); Calcium 8.5 mg/dl (8.4-10.2); Carbon Dioxide 27 mmol/L (22-30); Chloride 100 mmol/L (98-107); Estimated Creatinine Clearance 29 ml/min; Glucose 144 mg/dl (70-99); Potassium 3.7 mmol/L (3.5-5.1); Sodium 137 mmol/L (135-145); Total Bilirubin 0.6 mg/dl (0.2-1.3); Total Protein 5.3 g/dl (6.3-8.2); eGFR 33.72
[2024-06-10] MEDS: NOVOLOG FLEXPEN-LOW RESISTANCE SC (08:32)
[2024-06-10 08:40] LABS: Glucose - Point of Care 121 mg/dl (70-99)
--- NOTE | 2024-06-10 08:51 | W.PN.CD ---
Today's Communication / Plan
-
hold lasix and lisinopril
reduce eliquis to 2.5mg bid
trend Cr
Impression / Plan
-
.
Chest pain.
-Patient with significant chest pain worse with inspiration also has had shoulder pain exact etiology unclear. No clear evidence of coronary ischemia based on ECG and troponin. Also description of pain being worse with inspiration not consistent
with angina. With patient's prior vascular history as well as history of EVAR patient underwent CT scan of the chest and abdomen. Good quality study. No clear etiology noted. No dissection. Reviewed results with radiology and vascular surgery.
-Pain is now gone; feels back to baseline, but weak
NIKO
-likely due to poor PO intake
-hold lasix; lisinopril also on hold
-reduce eliquis to 2.5mg bid while Cr 1.5 or higher
.
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
-Last catheterization 03/07/2024 left main normal, LAD 60 to 70% proximal LAD stenosis spanning takeoff of D1-D2 occluded left circumflex diffuse noncritical disease RCA total occlusion of RCA bridging collaterals with sluggish flow of disease distal
RCA faint mbys-rq-mamxv collaterals
-ECG without ischemic changes
-peak trop: 0.05-->acute non-ischemic myocardial injury
CM = previously with moderately reduced LVEF. Echo 06/08: EF 50%, with no new wall motion abnormalities
- monitor volume status
.
PAF. Stable.
- in sinus on admit and converted to afib; now back to sinus s/p diltiazem drip
-cont metoprolol
-Monitor on telemetry
-eliquis dose is 2.5mg bid as long as Cr 1.5 or higher
.
History of EVAR 03/2024
-Followed by vascular
.
Hypercholesterolemia: cont statin.
Physical Exam
Vital Signs/Labs
Vital Signs
Temp Pulse Resp BP Pulse Ox
98.6 F 78 17 106/64 100
06/10/24 07:50 06/10/24 02:00 06/10/24 02:00 06/10/24 02:00 06/10/24 02:00
06/09/24 06/10/24 06/11/24
06:59 06:59 06:59
Actual Weight 93.6 kg 95.6 kg
06/10/24 04:53
06/10/24 04:53
PT 16.6 Sec (11.4-14.6) H 06/08/24 10:14
INR 1.36 06/08/24 10:14
APTT 36.6 Sec (23.4-35.0) H 06/08/24 10:14
06/08/24
10:14
Gxc-K-Mlxztzswcyv Pept 370
LAB Results
06/08/24 06/08/24 06/08/24
10:14 15:54 21:37
Troponin I 0.030 0.039 H* D 0.053 H* D
06/09/24 06/09/24
04:15 12:41
Troponin I 0.059 H* 0.058 H*
Physical Exam
Constitutional: No acute distress and Comfortable
EENT: Moist mucous membranes
Cardiovascular: Rhythm & rate is regular, Pedal edema is absent, JVD pressure is normal and Systolic murmur absent
Respiratory: Respiratory effort normal and Lungs clear to auscul.
Neuro/Psych: AO x 3
Data Reviewed
-
Date of Service: June 10, 2024
EKG: Other (Tele: Afib-->NSR)
Echo: Report Reviewed by me
Labs: Labs Reviewed by me
[2024-06-10] MEDS: LOPRESSOR 12.5 MG PO (08:54)
[2024-06-10] MEDS: NEURONTIN 300 MG PO ×2 (08:54→20:18)
[2024-06-10] MEDS: LASIX PO (08:55)
[2024-06-10] MEDS: NSS (PRESERVATIVE FREE) 10 ML IV ×2 (08:55→20:20)
[2024-06-10] MEDS: DELTASONE 20 MG PO (08:55)
[2024-06-10] MEDS: PROTONIX IV 40 MG IV ×2 (08:55→20:19)
[2024-06-10] MEDS: ELIQUIS 2.5 MG PO ×2 (09:02→20:17)
[2024-06-10] MEDS: MIRALAX PO (09:02)
--- NOTE | 2024-06-10 09:24 | W.PN.GI.CBS2 ---
Today's Communication / Plan
-
Adv to regular diet
PPI daily senior care
OP GI FU with myself. At this juncture no new recs will sign off please call with questions
Assessment / Plan
-
89-year-old male with past medical history of paroxysmal atrial fibrillation, PAD, ischemic cardiomyopathy with ejection fraction 35 to 40%, interstitial lung disease, rheumatoid arthritis on chronic prednisone and mycophenolate, CAD (severe
multivessel disease on medical therapy), GERD, hypertension, hypothyroidism, diabetes, abdominal aortic aneurysm status post endograft on 04/21/2024 who presents to the emergency room on Sunday morning with right-sided chest pain. Asked to evaluate
for epigastric abdominal discomfort.
Impression:
Chest pain/epigastric pain-> unknown etiology
Elevated troponin-> cardiology following
Interstitial lung disease
Rheumatoid arthritis on chronic prednisone and mycophenolate
History of endograft 04/21/2024-> vascular following
History of paroxysmal A-fib on Eliquis given this morning. Also on Cardizem with tachycardia.
CHF with reduced EF and ischemic cardiomyopathy
Plan:
- CTA and Abd US reviewed
- Continue pantoprazole daily basis
- Given resolution of discomfort adv to regular diet
- C/w miralax and bowel regimen
At this juncture no further GI recs will sign off please call for questions
He can FU with myself outpatient basis
Subjective
Subjective
Date of Service: June 10, 2024
He reports small BM this AM. Denies any further chest or epigastric abd pain. Tolerating CLD without issues
Objective
Data Reviewed
Laboratory Data:
Laboratory Results
06/10/24 04:53
06/10/24 04:53
Laboratory Results
PT 16.6 Sec (11.4-14.6) H 06/08/24 10:14
INR 1.36 06/08/24 10:14
APTT 36.6 Sec (23.4-35.0) H 06/08/24 10:14
Total Bilirubin 0.6 mg/dl (0.2-1.3) 06/10/24 04:53
AST 20 U/L (17-59) 06/10/24 04:53
ALT 14 U/L (0-50) 06/10/24 04:53
Alkaline Phosphatase 56 U/L (38-126) 06/10/24 04:53
Lipase 270 U/L (23-300) 06/08/24 10:08
Vital Signs and I&O:
Vital Signs
Temp Pulse Resp BP Pulse Ox
98.6 F 75 17 124/60 100
06/10/24 07:50 06/10/24 08:54 06/10/24 02:00 06/10/24 08:54 06/10/24 02:00
I&O
06/09/24 06/10/24 06/11/24
06:59 06:59 06:59
Intake Total 500 / 500 700 / 700
Output Total 600 / 600 525 / 525
Balance -100 / -100 175 / 175
Physical Exam
Physical Exam
GEN: No acute distress, conversant, pleasant
HEENT: anicteric, extraocular movements intact, clear oropharynx without exudates, hard of hearing
GI: soft, mildly distended, not tender to palpation, normal active bowel sounds, no hepatosplenomegaly
EXT: warm, well perfused, trace edema bilaterally
NEURO: AAOx3, non-focal
--- NOTE | 2024-06-10 09:52 | W.PN.HOSP.TC ---
Today's Communication/Plan
-
regular diet
US renal
follow Cr
deescalate abx
Assessment / Plan
Assessment / Plan
89yo M with PMHx of AAA s/p EVAR on 04/21/24, RA on cronic steroids and Bactrim, CAD, DM, Afib on Eliquis, HFrEF, ILD on 2L home O2 (uses mostly at sleep) came with pleuritic chest pain, CTA showed no endoleak as reviewed by [facility]. GI evaluated 2/2
epigastric dyscomfort - no GI pathology suspected. Cardiology follows for Afib with RVR found on admission and later resolved. Pleuriotic chest pain resolved after admission as HR became more controlled. Developed NIKO
A/P:
#Chest pain with non-ischemic cardiac injury, most likely 2/2 Afib with RVR (paroxysmal)
#Chronic HFrEF wwithout exacerbation
#CAD, stable
Resolved
cont rate control, ELiquis (reduvced dose basd on Cr elevation)
Cardiology followed
#Small intramural thromb
#Recent EVAR of AAA
VascSx to monitor - might need repeated CT, however now with NIKO
#NIKO
follow Cr
hold diuretics and ACEi/ARB
concern for possible TONY
Urinary studies and US renal
If further worsening - nephrology consult
STart regular diet as agreed with GI, avoid IVF 2/2 Hx of CHF
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
most likely ground-glass opacities on CT 2/2 ILD
SInce patient on Prednisone and mycophenolate, so immunosuppressed -reasonable to cont Abx for 5 days total, deescalate to Ceftriaxone/DOxy
cont O2
#RA
#HLD
cont home meds
#Distended gall bladder on CT
no RUQ abd pain, no elevated ALk.phos - no concern for cholecystitis
DVT ppx on ELqiuis
DNR/DNI
I have spent at least 58min reviewing chart, test results, communication with consultants and direct patient care
Anticipated Discharge: 24 - 48 hours
Subjective/Interval History
-
Date of Service: June 10, 2024
Objective Data
-
Labs:
Laboratory Results
06/10/24
04:53
WBC 8.0
Hgb 8.7 L
Hct 27.3 L
Plt Count 161
Sodium 137
Potassium 3.7
Chloride 100
Carbon Dioxide 27
BUN 35 H
Creatinine 1.9 H
Glucose 144 H
Calcium 8.5
Total Bilirubin 0.6
AST 20
ALT 14
Alkaline Phosphatase 56
Vital Signs:
Vital Signs
Temp Pulse Resp BP Pulse Ox
98.6 F 75 17 124/60 100
06/10/24 07:50 06/10/24 08:54 06/10/24 02:00 06/10/24 08:54 06/10/24 02:00
I&O
06/09/24 06/10/24 06/11/24
06:59 06:59 06:59
Intake Total 500 / 500 700 / 700
Output Total 600 / 600 525 / 525
Balance -100 / -100 175 / 175
Review of Systems
-
History Source: Patient
All other systems: Reviewed and negative
Physical Exam
-
General: No Apparent Distress
HEENT: Normocephalic
Respiratory: Clear to Auscultation
Cardiac: Regular Rhythm
GI: Soft, Nontender and Nondistended
Musculoskeletal: No Clubbing, No Cyanosis and No Edema
Skin: Warm
Neuro: Awake, Alert, Oriented and AO x 3
Psych: Calm
[2024-06-10] MEDS: CELLCEPT 1000 MG PO ×2 (10:21→20:19)
[2024-06-10] MEDS: VIBRAMYCIN 100 MG PO ×2 (10:23→20:17)
[2024-06-10] MEDS: TYLENOL 650 MG PO ×2 (12:28→22:06)
[2024-06-10] MEDS: NOVOLOG FLEXPEN-LOW RESISTANCE 1 UNITS SC (12:29)
[2024-06-10 12:32] LABS: Glucose - Point of Care 180 mg/dl (70-99)
--- NOTE | 2024-06-10 12:34 | PTCARENOTE ---
Patient AAOx3, pleasant. C/o restless leg and chronic shoulder pain, tylenol given. VS. 2L NC, 96%. Patient expressed frequent indigestion lately. Education provided on ways to prevent heartburn and on protonix. Will closely monitor.
[2024-06-10 12:48] LABS: Urine Albumin Trace (Neg - Trace); Urine Bilirubin Negative (Negative); Urine Character Clear (Clear); Urine Color Yellow; Urine Glucose Negative (Negative); Urine Ketone Negative (Negative); Urine Leukocyte Trace (Negative); Urine Nitrite Negative (Negative); Urine Occult Blood Negative (Negative); Urine Urobilinogen Negative (Neg - 1+)
--- NOTE | 2024-06-10 12:52 | PN.CDI ---
Addendum entered and electronically signed by Fransico Verduzco MD 06/10/24 19:36:
Not describing particular episode, but general diagnosis - no change to PN to be done
Original Note:
CDI
- -
CDI:
Physician Documentation Request
Admit Date: 06/08/24 13:11
Dear Doctor Luba,
Please review the following and provide your response in the progress notes.
Clinical Indicators:
- 06/08 ER Physician 'midsternal chest pain that began around 4 AM'
- 06/10 Cardiology 'PAF. Stable...in sinus on admit and converted to afib; now back to sinus'
- 06/10 PN 'Chest pain with non-ischemic cardiac injury, most likely 2/2 Afib with RVR (paroxysmal)'
- 06/08 EKG NSR with PAC's
Please clarify the following:
_Afib with RVR__ was present on admission
_Afib with RVR__ was not present on admission
Unable to determine
Use of terms such as suspected, likely, concern for, or probable (associated with a specific diagnosis that is being evaluated, monitored, or treated as if it exists) are acceptable and can be coded in the inpatient setting, when documented at the
time of discharge.
Thank you,
Zeinab Barnes RN
CDI Specialist
Please use your independent medical judgment in providing your response.
[2024-06-10 14:06] LABS: Urine Red Blood Cell 0-2 /HPF (0-2)
[2024-06-10 14:07] LABS: Urine Bacteria Few (Negative); Urine Urothelial Cell 0-2 /LPF (FEW)
[2024-06-10 14:29] LABS: Urine Sodium 23 mmol/L (30-90)
--- NOTE | 2024-06-10 15:12 | W.PN.UPDATE ---
Update Note
Progress Note Update
Patient well-known to me following recent endovascular infrarenal aortic aneurysm repair.
I saw him in the office last week with his son and he was doing very well with no complaints
Postoperative CT angiogram from March demonstrated stent graft in good position with no endoleak
Admitted with severe chest pain over the weekend
Patient seen and examined this morning and pain has completely resolved
CT angiogram of the chest abdomen pelvis personally reviewed
No evidence of aortic dissection
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 There is no contrast extravasation, surrounding inflammation
or evidence of extravasation (see attached).
I do not get the sense that this was the etiology of his chest pain. Unfortunately there is no scan for comparison purposes.
Again on the abdominal and pelvic portion of the scan the aortic aneurysm is excluded and there is no endoleak. The stent graft is in good position.
Continue observation
Explore other etiologies for episodic chest pain
He is scheduled to follow-up with me in 1 year for surveillance aortic imaging of his infrarenal abdominal aortic aneurysm. However I would like to see him in 6 months with an updated CT angiogram of the chest to follow the new finding in his
distal arch.
Zachariah Berumen III, MD
[facility] Vascular Surgery
[phone] (utlp)
[2024-06-10] MEDS: STERILE WATER FOR INJECTION 10 ML IV (15:13)
[2024-06-10] MEDS: ROCEPHIN 1000 MG IV (15:13)
[2024-06-10] MEDS: COLCHICINE 0.3 MG PO (15:59)
[2024-06-10 18:14] LABS: Glucose - Point of Care 236 mg/dl (70-99)
[2024-06-10] MEDS: NOVOLOG FLEXPEN-LOW RESISTANCE 2 UNITS SC (18:27)
[2024-06-10] MEDS: SENOKOT 8.6 MG PO (18:28)
[2024-06-10] MEDS: ZOLOFT 25 MG PO (18:28)
--- NOTE | 2024-06-10 20:00 | PTCARENOTE ---
Received pt from previous shift; AAOx3, pleasant and making jokes with staff. VSS. SpO2 100% on 2L O2 NC, lungs diminished with crackles at the R base. Pt denies pain. Remainder of assessment as documented.
[2024-06-10] MEDS: LOPRESSOR 25 MG PO (20:18)
[2024-06-10] MEDS: CRESTOR 20 MG PO (20:19)
[2024-06-10 22:06] LABS: Glucose - Point of Care 259 mg/dl (70-99)
[2024-06-11] VITALS (16 sets, daily range): BP systolic 91–164; BP diastolic 56–112; PULSE 111–146; O2SAT 96; BMI 28.9
--- NOTE | 2024-06-11 00:44 | PTCARENOTE ---
Pt with rhythm change on the monitor NSR > Afib at a controlled rate 100's. Covering [employer] notified, order obtained for 5mg IV Lopressor PRN for a sustained HR of >120. Pt not within admin parameters at this time.
[2024-06-11] MEDS: SYNTHROID 100 MCG PO (03:57)
--- NOTE | 2024-06-11 04:10 | PTCARENOTE ---
Addendum entered by Miesha Michel RN 06/11/24 04:19:
Pt offered mouth care and refused at this time of night, 'Will brush in morning'.
Original Note:
Assumed care of Pt during down time. Pt is AAOx3 able to make needs known. Pt had no complaints at this time. Call calhoun within reach.
--- NOTE | 2024-06-11 04:11 | DOWNTIME ---
There was a [employer] Downtime on 06/11/2024 from 0100 to 06/11/2024 at 0355. Downtime documentation of patient's care, including medication administrations, has been reconciled in the electronic record per guidelines. Refer to the
patient's paper chart under the miscellaneous tab to see printed paper medication records and downtime forms.
[2024-06-11 04:21] LABS: % Eosinophils 0.3 % (0-6); % Immature Granulocytes 0.6 % (0-0.5); % Lymphocytes 10.6 % (20.5-51.1); % Monocytes 9.1 % (1.7-9.3); % Neutrophils 79.4 % (42.2-75.2); Absolute Immature Granulocytes 0.1 10^3/uL (0-0.05); Absolute Lymphocytes 0.8 10^3/uL (1.2-3.4); Absolute Monocytes 0.7 10^3/uL (0.1-0.6); Absolute Neutrophils 6.3 10^3/uL (1.4-6.5); Hematocrit 28.8 % (39.0-52.0); Hemoglobin 9.3 g/dL (13.0-18.0); Mean Corp Hgb Conc. 32.3 g/dL (33.0-37.0); Mean Corpuscular Hgb 30.5 pg (27.0-31.0); Mean Corpuscular Volume 94.4 fL (80.0-94.0); Mean Platelet Volume 8.9 fL (7.4-10.4); Nucleated Red Blood Cells % 0 % (-); Platelet Count 166 10^3/uL (130-400); Red Blood Cell Count 3.05 10^6/uL (4.70-6.10); Red Cell Dist. Width 16.7 % (11.5-14.5); White Blood Cell Count 7.9 10^3/uL (4.8-10.8)
[2024-06-11 04:29] LABS: ALT (SGPT) 22 U/L (0-50); AST (SGOT) 34 U/L (17-59); Albumin 3.2 g/dl (3.5-5.0); Alkaline Phosphatase 55 U/L (38-126); Blood Urea Nitrogen 32 mg/dl (9-20); Calcium 8.7 mg/dl (8.4-10.2); Carbon Dioxide 24 mmol/L (22-30); Chloride 103 mmol/L (98-107); Estimated Creatinine Clearance 35 ml/min; Glucose 156 mg/dl (70-99); Potassium 3.6 mmol/L (3.5-5.1); Sodium 141 mmol/L (135-145); Total Bilirubin 0.3 mg/dl (0.2-1.3); Total Protein 5.7 g/dl (6.3-8.2); eGFR 41.44
--- NOTE | 2024-06-11 07:29 | W.PN.CD ---
Today's Communication / Plan
-
continue metoprolol 25mg bid. IF rates are running high (>110 sustained) then will need to increase to 50mg bid
Eliquis 2.5mg bid (for Cr >1.5)
Impression / Plan
-
.
Chest pain.
-Patient with significant chest pain worse with inspiration also has had shoulder pain exact etiology unclear. No clear evidence of coronary ischemia- trops were slightly elevated. I again got a description of his pain- 'pressure with worsening
with deep breath in'. He does not describe having discomfort when ambulating at home. I reviewed angiogram from Mar 2024- the prox/mid LAD disease is long and very likely hemodynamically significant (no iFR done). I told him if he develops chest
pressure with ambulation we should consider PCI of LAD- this is technically feasible. Dr Berumen reviewed CT- unclear if there is penetrating aortic ulcer.
NIKO
-likely due to poor PO intake
-continue hold lasix; lisinopril also on hold
-reduce eliquis to 2.5mg bid while Cr 1.5 or higher
.
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
-Last catheterization 03/07/2024 left main normal, LAD 60 to 70% proximal LAD stenosis spanning takeoff of D1-D2 occluded left circumflex diffuse noncritical disease RCA total occlusion of RCA bridging collaterals with sluggish flow of disease distal
RCA faint ufey-ed-tzdqz collaterals
-ECG without ischemic changes
-peak trop: 0.14-->acute non-ischemic myocardial injury
CM = previously with moderately reduced LVEF. Echo 06/08: EF 50%, with no new wall motion abnormalities. Improved
- monitor volume status
.
PAF. Stable.
- in sinus on admit and converted to afib; then back in NSR and now back in AF this AM
-cont metoprolol at current dose of 25mg bid
-eliquis dose is 2.5mg bid as long as Cr 1.5 or higher
.
History of EVAR 03/2024
-Followed by vascular
.
Hypercholesterolemia: cont statin.
dispo: I think if he is able to ambulate without symptoms may be able to discharge with outpt medicine, cardiology and vascular followup. Would benefit from BMP in one week to see if Cr remains>1.5. IF it drops to <1.5 does of eliquis should be 5mg
bid
Physical Exam
Vital Signs/Labs
Vital Signs
Temp Pulse Resp BP Pulse Ox
97.8 F 92 12 109/68 95
06/11/24 03:07 06/11/24 06:00 06/11/24 06:00 06/11/24 06:00 06/11/24 06:00
06/10/24 06/11/24 06/12/24
06:59 06:59 06:59
Actual Weight 210 lb 12.191 oz 206 lb 12.697 oz
06/11/24 03:57
06/11/24 03:57
PT 16.6 Sec (11.4-14.6) H 06/08/24 10:14
INR 1.36 06/08/24 10:14
APTT 36.6 Sec (23.4-35.0) H 06/08/24 10:14
06/08/24
10:14
Mdm-L-Leyegpbpvln Pept 370
LAB Results
06/08/24 06/08/24 06/08/24
10:14 15:54 21:37
Troponin I 0.030 0.039 H* D 0.053 H* D
06/09/24 06/09/24 06/10/24
04:15 12:41 14:29
Troponin I 0.059 H* 0.058 H* 0.140 H*
06/10/24
17:03
Troponin I 0.120 H*
Physical Exam
Constitutional: No acute distress and Comfortable
Cardiovascular: Systolic murmur absent and Rhythm/rate is irregular
Respiratory: Respiratory effort normal and Wheeze Absent
GI: Non tender
Neuro/Psych: AO x 3 and Motor deficits absent
Data Reviewed
-
Date of Service: June 11, 2024
[2024-06-11] MEDS: VIBRAMYCIN 100 MG PO ×2 (08:30→21:21)
[2024-06-11] MEDS: NOVOLOG FLEXPEN-LOW RESISTANCE SC (08:30)
[2024-06-11] MEDS: DELTASONE 20 MG PO (08:30)
[2024-06-11] MEDS: MIRALAX PO (08:31)
[2024-06-11] MEDS: BACTRIM DS 800 MG/160 MG 1 TABLET PO (08:31)
[2024-06-11] MEDS: NEURONTIN 300 MG PO ×2 (08:31→21:20)
[2024-06-11] MEDS: ELIQUIS 2.5 MG PO ×2 (08:31→21:20)
[2024-06-11] MEDS: CELLCEPT 1000 MG PO ×2 (08:31→21:21)
[2024-06-11] MEDS: NSS (PRESERVATIVE FREE) 10 ML IV ×2 (08:32→21:20)
[2024-06-11] MEDS: PROTONIX IV 40 MG IV ×2 (08:32→21:20)
[2024-06-11 08:37] LABS: Glucose - Point of Care 116 mg/dl (70-99)
[2024-06-11] MEDS: MUCINEX 600 MG PO ×2 (08:45→21:20)
[2024-06-11] MEDS: LOPRESSOR PO (08:47)
--- NOTE | 2024-06-11 08:55 | W.PN.HOSP.TC ---
Today's Communication/Plan
-
Lopressor increased, follow HR
PT/OT
if remains asymptomatic - cardiology will follow as outpatient
Assessment / Plan
Assessment / Plan
89yo M with PMHx of AAA s/p EVAR on 04/21/24, RA on cronic steroids and Bactrim, CAD, DM, Afib on Eliquis, HFrEF, ILD on 2L home O2 (uses mostly at sleep) came with pleuritic chest pain, CTA showed no endoleak as reviewed by [email or web address]. GI evaluated 2/2
epigastric dyscomfort - no GI pathology suspected. Cardiology follows for Afib with poor control. Pleuritic chest pain resolved after admission as HR became more controlled. Developed NIKO
A/P:
#Chest pain with non-ischemic cardiac injury, most likely 2/2 Paroxysmal Afib with poor control
#Chronic HFrEF without exacerbation
#CAD, stable
Resolved chest discomfort
cont rate control, ELiquis (reduced dose based on Cr elevation)
Cardiology followed: increased
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
#Recent EVAR of AAA
VascSx to monitor - need repeated CTA in 6 months, will follow as outpatient
#NIKO
follow Cr
hold diuretics and ACEi/ARB
concern for possible TONY/prerenal since FeNa 0.3%
US renal without clinically significant findings
improved while withholding lisinopril and Lasix
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
most likely ground-glass opacities on CT 2/2 ILD
SInce patient on Prednisone and mycophenolate, so immunosuppressed -reasonable to cont Abx for 5 days total, deescalate to Ceftriaxone/DOxy
cont O2
#RA
#HLD
cont home meds
#Distended gall bladder on CT
no RUQ abd pain, no elevated ALk.phos - no concern for cholecystitis
DVT ppx on ELqiuis
DNR/DNI
I have spent at least 38min reviewing chart, test results, communication with consultants and direct patient care
Anticipated Discharge: Within 24 hours
Subjective/Interval History
-
Date of Service: June 11, 2024
Objective Data
-
Labs:
Laboratory Results
06/11/24
03:57
WBC 7.9
Hgb 9.3 L
Hct 28.8 L
Plt Count 166
Sodium 141
Potassium 3.6
Chloride 103
Carbon Dioxide 24
BUN 32 H
Creatinine 1.6 H
Glucose 156 H
Calcium 8.7
Total Bilirubin 0.3
AST 34
ALT 22
Alkaline Phosphatase 55
Vital Signs:
Vital Signs
Temp Pulse Resp BP Pulse Ox
98.4 F 92 12 109/68 95
06/11/24 08:16 06/11/24 06:00 06/11/24 06:00 06/11/24 06:00 06/11/24 06:00
I&O
06/10/24 06/11/24 06/12/24
06:59 06:59 06:59
Intake Total 700 / 700 180 / 180
Output Total 525 / 525 300 / 300
Balance 175 / 175 -120 / -120
Review of Systems
-
History Source: Patient
All other systems: Reviewed and negative
Physical Exam
-
General: No Apparent Distress
HEENT: Normocephalic
Respiratory: Clear to Auscultation
Cardiac: Irregular Rhythm and Tachycardic
GI: Soft, Nontender and Nondistended
[2024-06-11] MEDS: LOPRESSOR 25 MG PO ×2 (09:00→21:20)
[2024-06-11] MEDS: TYLENOL 650 MG PO ×2 (11:09→21:21)
[2024-06-11] MEDS: DILAUDID 0.5 MG IV (12:26)
--- NOTE | 2024-06-11 12:27 | CM ---
Chart reviewed. ADC: 24 hours if no changes occur
Per PT/OT, rec. HH
Pt current with [facility] for nurse. Resumption of care referral to be completed
YOLANDA TT hospitalist to enter resumption of care order prior to d/c
YOLANDA spoke w/ nurse Avelar/Aracely Gordon re anticipated d/c. Updated clinicals requested to be faxed
Valentino will inform DON of pt's ADC
Plan: Return to [facility] w/ [facility]
[2024-06-11 12:30] LABS: Glucose - Point of Care 172 mg/dl (70-99)
--- NOTE | 2024-06-11 13:05 | W.PN.UPDATE ---
Update Note
Progress Note Update
called bedside by RN for severe neck pain. On assessment - patient comfortable in the bed after pain meds, reported pain and stiffness in both sides of the neck without radiation to chest. This subsides when patient is laying down. Suspect
deconditioning and muscle strain - will montior
[2024-06-11] MEDS: NOVOLOG FLEXPEN-LOW RESISTANCE 1 UNITS SC (13:10)
--- NOTE | 2024-06-11 13:12 | PTCARENOTE ---
Addendum entered by María Jacobs RN 06/11/24 13:14:
Placecd back to bed and neck wrapped with warm blanket.
Original Note:
C/o bilateral neck pain aching 05/06 requested Tylenol- given and post assessment he is now in horrible 11.5 pain - PRN IV Dilaudid administered- relayed to Dr. Martines TT.
[2024-06-11] MEDS: STERILE WATER FOR INJECTION 10 ML IV (14:34)
[2024-06-11] MEDS: ROCEPHIN 1000 MG IV (14:34)
--- NOTE | 2024-06-11 14:42 | PTCARENOTE ---
NSR 72 has replaced AF 90s-110s on tele- strip placed on chart.
[2024-06-11] MEDS: ZOLOFT 25 MG PO (17:43)
[2024-06-11] MEDS: SENOKOT 8.6 MG PO (17:43)
[2024-06-11 18:06] LABS: Glucose - Point of Care 285 mg/dl (70-99)
[2024-06-11] MEDS: NOVOLOG FLEXPEN-LOW RESISTANCE 3 UNITS SC (19:11)
[2024-06-11] MEDS: CRESTOR 20 MG PO (21:20)
[2024-06-11 22:40] LABS: Glucose - Point of Care 242 mg/dl (70-99)
[2024-06-12] VITALS (7 sets, daily range): BP systolic 128–160; BP diastolic 68–88; BMI 29.0
[2024-06-12] MEDS: SYNTHROID 100 MCG PO (04:44)
[2024-06-12 05:01] LABS: % Eosinophils 0.2 % (0-6); % Immature Granulocytes 0.3 % (0-0.5); % Lymphocytes 11.5 % (20.5-51.1); % Monocytes 9.7 % (1.7-9.3); % Neutrophils 78.3 % (42.2-75.2); Absolute Lymphocytes 0.7 10^3/uL (1.2-3.4); Absolute Monocytes 0.6 10^3/uL (0.1-0.6); Absolute Neutrophils 4.5 10^3/uL (1.4-6.5); Hemoglobin 8.7 g/dL (13.0-18.0); Mean Corp Hgb Conc. 32.2 g/dL (33.0-37.0); Mean Corpuscular Hgb 30.3 pg (27.0-31.0); Mean Corpuscular Volume 94.1 fL (80.0-94.0); Mean Platelet Volume 9.1 fL (7.4-10.4); Nucleated Red Blood Cells % 0 % (-); Platelet Count 164 10^3/uL (130-400); Red Blood Cell Count 2.87 10^6/uL (4.70-6.10); Red Cell Dist. Width 16.4 % (11.5-14.5); White Blood Cell Count 5.8 10^3/uL (4.8-10.8)
[2024-06-12 05:26] LABS: Blood Urea Nitrogen 29 mg/dl (9-20); Calcium 8.4 mg/dl (8.4-10.2); Carbon Dioxide 24 mmol/L (22-30); Chloride 106 mmol/L (98-107); Estimated Creatinine Clearance 40 ml/min; Glucose 188 mg/dl (70-99); Sodium 142 mmol/L (135-145); eGFR 48.65
--- NOTE | 2024-06-12 06:43 | PTCARENOTE ---
No acute changes overnight pt able to sleep. Tele showing NSR. Tylenol provided per pt request for generalized pain/restless legs. Denies any pain in chest, abdomen or neck. One assist into the bathroom, steady gait. No gi/gu complaints. RA while
asleep, Sp02 WNL. Call calhoun and tray table within reach. Pt calls appropriately.
[2024-06-12 07:24] LABS: Glucose - Point of Care 185 mg/dl (70-99)
[2024-06-12] MEDS: NOVOLOG FLEXPEN-LOW RESISTANCE 1 UNITS SC ×2 (08:38→13:22)
[2024-06-12] MEDS: NEURONTIN 300 MG PO (08:38)
[2024-06-12] MEDS: DELTASONE 20 MG PO (08:39)
[2024-06-12] MEDS: PROTONIX IV 40 MG IV (08:39)
[2024-06-12] MEDS: LOPRESSOR PO ×2 (08:39→08:54)
[2024-06-12] MEDS: VIBRAMYCIN 100 MG PO (08:39)
[2024-06-12] MEDS: CELLCEPT 1000 MG PO (08:39)
[2024-06-12] MEDS: MIRALAX 17 GRAMS PO (08:39)
[2024-06-12] MEDS: MUCINEX 600 MG PO (08:39)
[2024-06-12] MEDS: NSS (PRESERVATIVE FREE) 10 ML IV (08:40)
[2024-06-12] MEDS: TOPROL XL 50 MG PO (08:48)
[2024-06-12] MEDS: ELIQUIS 5 MG PO (08:48)
--- NOTE | 2024-06-12 08:53 | W.PN.CD ---
Today's Communication / Plan
-
increase beta eugene: Toprol XL 50mg bid
Eliquis back to 5mg bid, now that Cr under 1.5
hold lasix; lisinopril also on hold
trend tele and Cr
Impression / Plan
-
Chest pain.
-Patient with significant chest pain worse with inspiration also has had shoulder pain exact etiology unclear.
-No clear evidence of coronary ischemia- trops were slightly elevated. I again got a description of his pain- 'pressure with worsening with deep breath in'.
-He does not describe having discomfort when ambulating at home.
-Interventional cards reviewed angiogram from Mar 2024- the prox/mid LAD disease is long and very likely hemodynamically significant (no iFR done). Interventional cards told him if he develops chest pressure with ambulation we should consider PCI of
LAD- this is technically feasible. Dr Berumen reviewed CT- unclear if there is penetrating aortic ulcer.
Paroyxsmal A fib
- with recurrent episodes this admission
-back in sinus
-increased beta eugene: Toprol XL 50mg bid
-CHADS2-VASC = 5. Eliquis back to 5mg bid, now that Cr under 1.5
NIKO: improving
-likely due to poor PO intake
-continue hold lasix; lisinopril also on hold
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
-Last catheterization 03/07/2024 left main normal, LAD 60 to 70% proximal LAD stenosis spanning takeoff of D1-D2 occluded left circumflex diffuse noncritical disease RCA total occlusion of RCA bridging collaterals with sluggish flow of disease distal
RCA faint ofcu-mo-vmdpi collaterals
-ECG without ischemic changes
-peak trop: 0.14-->acute non-ischemic myocardial injury
ICM. Previously with moderately reduced LVEF. Echo 06/08: EF 50%, with no new wall motion abnormalities. Improved.
- monitor volume status
-Toprol XL
History of EVAR 03/2024
-Followed by vascular
Hypercholesterolemia: cont statin.
Physical Exam
Vital Signs/Labs
Vital Signs
Temp Pulse Resp BP Pulse Ox
97.6 F 61 15 160/68 96
06/12/24 07:10 06/12/24 06:00 06/12/24 06:00 06/12/24 06:00 06/12/24 06:00
06/11/24 06/12/24 06/13/24
06:59 06:59 06:59
Actual Weight 93.8 kg 94.2 kg
06/12/24 04:43
06/12/24 04:43
PT 16.6 Sec (11.4-14.6) H 06/08/24 10:14
INR 1.36 06/08/24 10:14
APTT 36.6 Sec (23.4-35.0) H 06/08/24 10:14
06/08/24
10:14
Cmq-U-Efmftzasdlo Pept 370
LAB Results
06/09/24 06/10/24 06/10/24
12:41 14:29 17:03
Troponin I 0.058 H* 0.140 H* 0.120 H*
Physical Exam
Constitutional: No acute distress and Comfortable
EENT: Moist mucous membranes
Cardiovascular: Rhythm & rate is regular, Pedal edema is absent, JVD pressure is normal and Systolic murmur absent
Respiratory: Respiratory effort normal and Lungs clear to auscul.
Neuro/Psych: AO x 3
Data Reviewed
-
Date of Service: June 12, 2024
EKG: Other (Tele: A fib-->NSR 70s)
Labs: Labs Reviewed by me
[2024-06-12] MEDS: ELIQUIS PO (08:54)
[2024-06-12 12:23] LABS: Glucose - Point of Care 191 mg/dl (70-99)
--- NOTE | 2024-06-12 13:20 | W.PN.HOSP.TC ---
Today's Communication/Plan
-
dc
Assessment / Plan
Assessment / Plan
89yo M with PMHx of AAA s/p EVAR on 04/21/24, RA on cronic steroids and Bactrim, CAD, DM, Afib on Eliquis, HFrEF, ILD on 2L home O2 (uses mostly at sleep) came with pleuritic chest pain, CTA showed no endoleak as reviewed by Vesc[facility]. GI evaluated 2/2
epigastric dyscomfort - no GI pathology suspected. Cardiology follows for Afib with poor control. Pleuritic chest pain resolved after admission as HR became more controlled. Developed NIKO that was resolving while holding off Lasix and Lisinopril -
will cont to hold them upon d/c until seen by cardiology. Recommended to repeat BMP in 1 week upon d/c. Cardiology increased Toprol, resulted in better HR control. COmplete Abx 5 days on 06/12/24 for minimal concern for pneumonia. Medically stable
for d/c as no chest painor neck pain on the day of d/c
A/P:
#Chest pain with non-ischemic cardiac injury, most likely 2/2 Paroxysmal Afib with poor control
#Chronic HFrEF without exacerbation
#CAD, stable
Resolved chest discomfort
cont rate control, ELiquis (reduced dose based on Cr elevation)
Cardiology followed: increased
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
#Recent EVAR of AAA
VascSx to monitor - need repeated CTA in 6 months, will follow as outpatient
#NIKO
follow Cr
hold diuretics and ACEi/ARB
concern for possible TONY/prerenal since FeNa 0.3%
US renal without clinically significant findings
improved while withholding lisinopril and Lasix
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
most likely ground-glass opacities on CT 2/2 ILD
SInce patient on Prednisone and mycophenolate, so immunosuppressed -reasonable to cont Abx for 5 days total, deescalate to Ceftriaxone/DOxy
cont O2
#RA
#HLD
cont home meds
#Distended gall bladder on CT
no RUQ abd pain, no elevated ALk.phos - no concern for cholecystitis
DVT ppx on ELqiuis
DNR/DNI
I have spent at least 38min reviewing chart, test results, communication with consultants and direct patient care
Anticipated Discharge: Today
Subjective/Interval History
-
Date of Service: June 12, 2024
Objective Data
-
Labs:
Laboratory Results
06/12/24
04:43
WBC 5.8
Hgb 8.7 L
Hct 27.0 L
Plt Count 164
Sodium 142
Potassium 4.0
Chloride 106
Carbon Dioxide 24
BUN 29 H
Creatinine 1.4 H
Glucose 188 H
Calcium 8.4
Vital Signs:
Vital Signs
Temp Pulse Resp BP Pulse Ox
98.5 F 61 15 160/68 96
06/12/24 11:05 06/12/24 06:00 06/12/24 06:00 06/12/24 06:00 06/12/24 06:00
I&O
06/11/24 06/12/24 06/13/24
06:59 06:59 06:59
Intake Total 180 / 180 960 / 960
Output Total 300 / 300
Balance -120 / -120 960 / 960
Review of Systems
-
History Source: Patient and Family
All other systems: Reviewed and negative
Cardiac: Denies Chest Pain
Physical Exam
-
General: No Apparent Distress
HEENT: Normocephalic
Respiratory: Clear to Auscultation
Cardiac: Regular Rhythm
GI: Soft, Nontender and Nondistended
Skin: Warm
Neuro: Awake, Alert, Oriented and AO x 3
Psych: Calm
--- NOTE | 2024-06-12 13:25 | W.DCSUMMARY ---
Discharge Summary
Discharge Data
Date of Admission: 06/08/24
Date of Discharge: 06/12/24
-
Pending Results: No
Hospital Course
89yo M with PMHx of AAA s/p EVAR on 04/21/24, RA on cronic steroids and Bactrim, CAD, DM, Afib on Eliquis, HFrEF, ILD on 2L home O2 (uses mostly at sleep) came with pleuritic chest pain, CTA showed no endoleak as reviewed by VescSx. GI evaluated 2/2
epigastric discomfort - no GI pathology suspected. Cardiology follows for Afib with poor control. Pleuritic chest pain resolved after admission as HR became more controlled. Developed NIKO that was resolving while holding off Lasix and Lisinopril -
will cont to hold them upon d/c until seen by cardiology. Recommended to repeat BMP in 1 week upon d/c. Cardiology increased Toprol, resulted in better HR control. COmplete Abx 5 days on 06/12/24 for minimal concern for pneumonia. Medically stable
for d/c as no chest painor neck pain on the day of d/c
I have spent at least 39min preparing d/c
A/P:
#Chest pain with non-ischemic cardiac injury, most likely 2/2 Paroxysmal Afib with poor control
#Chronic HFrEF without exacerbation
#CAD, stable
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
#Recent EVAR of AAA
#NIKO
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
#RA
#HLD
#Distended gall bladder on CT
Discharge Plan
-
Patient Disposition: Assisted Living
Discharge Diagnosis/Procedures: chest pain
Diet: Low Sodium
Activity: As tolerated
Driving Restrictions: As prior to admission
Blood Work: BMP in 1 week
Others Tests: We have ordered a CT angiogram of the chest for 6 months from now, please call central scheduling at your earliest convenience to schedule this test
Other Services: PT and OT
Referrals:
Jessi Hodges MD [Active] - (6-[address] Hodges for GERD/epigastric pain)
Zachariah Berumen III, MD [Active] - 12/22/24 10:45 am
(Vascular surgery office follow-up
We have ordered a CTA of your chest to be completed before this follow-up appointment)
Jamaal Marks MD [Active] - in one to two weeks
Van John MD [Family Provider] -
Prescriptions:
New
metoprolol succinate 50 mg Tablet Extended Release 24 Hr
50 mg PO BID Qty: 60 0RF
guaifenesin 600 mg Tablet Extended Release 12hr
600 mg PO Q12 Qty: 60 0RF
Continued
sennosides [senna] 8.6 mg Tablet
8.6 mg PO QPM
prednisone 20 mg Tablet
20 mg PO DAILY
sulfamethoxazole-trimethoprim 800-160 mg Tablet
1 tab PO MOWEFR
mycophenolate mofetil 500 mg Tablet
1,000 mg PO BID
sertraline 25 mg Tablet
25 mg PO QPM
docusate sodium 100 mg Tablet
200 mg PO BID
rosuvastatin 20 mg Tablet
20 mg PO HS
levothyroxine 100 mcg Capsule
100 mcg PO DAILY
alogliptin 25 mg Tablet
25 mg PO DAILY
Osteo Bi-Flex Triple Strength 750 mg-644 mg- 30 mg-1 mg Tablet
1 tab PO BID
Eliquis 5 mg tablet
5 mg PO BID
acetaminophen 325 mg Tablet
650 mg PO Q4HPRN PRN (Reason: mild pain /fever >100.4) Qty: 1 0RF
polyethylene glycol 3350 [HealthyLax] 17 gram Powder In Packet
17 g PO DAILY Qty: 30 0RF
miconazole nitrate 2 % Cream
1 applic TOPICAL BID
gabapentin 300 mg Capsule
300 mg PO BID
azelastine 137 mcg (0.1 %) [place],Non-Aerosol
2 spray INTRANASAL DAILY
[place] Protect (zinc oxide) 12 % Cream
1 applic TOPICAL BID
nitroglycerin [Nitrostat] 0.4 mg Tablet, Sublingual
0.4 mg SUBLINGUAL [id number] PRN (Reason: chest pains)
[place] Protect (zinc oxide) 12 % Cream
1 applic TOPICAL DAILYPRN PRN (Reason: buttocks)
Held
furosemide 40 mg Tablet
40 mg PO DAILY
Hold Instructions: Physician Order: discuss with document coordinator when to restart
lisinopril 5 mg Tablet
5 mg PO DAILY
Hold Instructions: Physician Order discuss with document coordinator when to restart
Discontinued
metoprolol succinate 25 mg Tablet Extended Release 24 Hr
25 mg PO DAILY
Del Menstrual 50 Plus
1 tab PO DAILY
Discharge Orders:
Discharge Patient (As Directed); Ordered 06/12/24
Ordered By: Fransico Verduzco
Discharge Date and Time
Print Language: SAMI
[2024-06-12] MEDS: OMNICEF 300 MG PO (14:17)
--- NOTE | 2024-06-12 14:40 | PTCARENOTE ---
pt discharged to [facility]. report given to Leena. pt transported by his son. discharge packet given to son for drop off to nurse at [facility].
--- NOTE | 2024-06-12 17:17 | CM ---
Patient from [facility] with Dx Intractable chest pain/epigastric pain, Afib with RVR converted to NSR. Room air. PT & OT recommend HH.
Met with patient and son Gabriel; both agree to d/c home today to [facility] with [facility]. IMM completed. Son will provide transport home.
Spoke with Katelyn, DON [facility]; they are able to accept the patient back today. The for report [phone], fax [phone].
Message to [facility] [facility] (fax [phone]) via [facility] re; d/c today.
Plan return to [facility] today with [facility] [facility], by car.
== END 2024-06-12 14:22 | disposition home health service (06) | DRG 309 ==
LOC: IMU 13:11
PROVIDERS: Nurse Practitioner Gerontology; Physician Assistant Medical; ADMITTING PHYSICIAN Internal Medicine; ATTENDING PHYSICIAN Internal Medicine; CONSULT PHYSICIAN Internal Medicine Cardiovascular Disease; CONSULT PHYSICIAN Internal Medicine Gastroenterology; EMERGENCY PHYSICIAN Emergency Medicine; FAMILY PHYSICIAN Family Medicine; OTHER PHYSICIAN Surgery Vascular Surgery
DX: I48.0 Paroxysmal atrial fibrillation (principal); D84.9 Immunodeficiency, unspecified; I50.22 Chronic systolic (congestive) heart failure; J96.11 Chronic respiratory failure with hypoxia; N17.9 Acute kidney failure, unspecified; I5A Non-ischemic myocardial injury (non-traumatic); I11.0 Hypertensive heart disease with heart failure; F17.200 Nicotine dependence, unspecified, uncomplicated; J84.112 Idiopathic pulmonary fibrosis; E78.00 Pure hypercholesterolemia, unspecified; M06.9 Rheumatoid arthritis, unspecified; I51.3 Intracardiac thrombosis, not elsewhere classified; Z11.52 Encounter for screening for COVID-19
CPT/HCPCS: 93308; 71250; 71275; 74174; 76700; 76770; 80048; 80053; 81003; 81015; 82570; 82962; 83036; 83605; 83690; 83880; 84145; 84300; 84484; 85025; 85610; 85730; 86850; 86900; 86901; 87070; 87811; 93005; 93306; 96374; 96375; 96376; 97162; 97166; 99291; Q9967

== ENCOUNTER 2024-08-12 11:22 | Emergency (ER) | payer MEDICARE, OTHER, SELFPAY ==
[2024-08-12 11:41] VITALS: BP 104/62
[2024-08-12 12:15] LABS: % Basophils 0.2 % (0-2); % Eosinophils 0.1 % (0-6); % Immature Granulocytes 0.5 % (0-0.5); % Lymphocytes 7.4 % (20.5-51.1); % Neutrophils 87.8 % (42.2-75.2); Absolute Immature Granulocytes 0.1 10^3/uL (0-0.05); Absolute Lymphocytes 0.8 10^3/uL (1.2-3.4); Absolute Monocytes 0.4 10^3/uL (0.1-0.6); Absolute Neutrophils 9.7 10^3/uL (1.4-6.5); Hematocrit 33.1 % (39.0-52.0); Hemoglobin 10.1 g/dL (13.0-18.0); Mean Corp Hgb Conc. 30.5 g/dL (33.0-37.0); Mean Corpuscular Hgb 29.9 pg (27.0-31.0); Mean Corpuscular Volume 97.9 fL (80.0-94.0); Mean Platelet Volume 9.3 fL (7.4-10.4); Nucleated Red Blood Cells % 0 % (-); Platelet Count 178 10^3/uL (130-400); Red Blood Cell Count 3.38 10^6/uL (4.70-6.10); Red Cell Dist. Width 16.8 % (11.5-14.5); White Blood Cell Count 11.1 10^3/uL (4.8-10.8)
[2024-08-12 12:35] LABS: COVID-19 Antigen Negative (Negative)
[2024-08-12 12:42] LABS: NT-proBNP 348 pg/ml
[2024-08-12 13:40] VITALS: BP 133/62
[2024-08-12 15:17] VITALS: BP 119/87
[2024-08-12] MEDS: DUONEB 3 ML INH (15:31)
--- NOTE | 2024-08-12 15:37 | ED.GENMED ---
History of Present Illness
General
Chief Complaint: Breathing Problem
Source: patient and family (Son contributes to history)
Exam Limitations: none
Time Seen by Provider: 08/12/24 15:10
Nursing documentation reviewed up to this point in time: agreed with
History of Present Illness
History of Present Illness:
89 yo male presents to the Emergency Department c/o shortness of breath for the past 3 to 4 days. He has a history of CHF, interstitial lung disease and is on home oxygen as needed. He was seen by ANGEL, who stated he may have fluid in his lungs. He
was sent to the emergency department.
Past History
Past History
ED Past Medical History: CHF, HTN and Other (Interstitial lung disease)
ED Past Surgical History: Orthopedic (Right knee replacement, kyphoplasty) and Other (Left carotid endarterectomy, aortic aneurysm repair)
Social History
Tobacco: Non-smoker
Alcohol: None
Drug: None
Review of Systems
Review of Systems
Allergies reviewed?: Yes
All Other Systems: Not applicable
Constitutional: Reports no symptoms
EENT: Reports no symptoms
Respiratory: Reports cough and trouble breathing
Cardiac: Reports no symptoms
ABD/GI: Reports no symptoms
: Reports no symptoms
Musculoskeletal: Reports no symptoms
Skin: Reports no symptoms
Neurological: Reports no symptoms
Endocrine: Reports no symptoms
Hematologic/Lymphatic: Reports no symptoms
Psychiatric: Reports no symptoms
Phy Exam
Physical Exam
Physical Exam:
Physical Exam
General: Afebrile
Neck: supple. no meningeal signs. normal posterior pharynx
Heart: s1/s2 regular rate and rhythm, no murmur. equal radial
pulses.
HEENT: Pupils equal round reactive to light, EOMI
Lungs: mild respiratory distress. Wheezing at bases bilaterally
Abdomen: normal bowel sounds. not tender. no CVAT
Neuro: alert and oriented. no focal neurological deficits cranial nerves II through XII intact
Skin: no rash
Psychiatric: well kept. interactive and cooperative
Extremities: no edema. no calf tenderness. negative homans. good distal pulses
Scores
Heart Failure Risk
Heart Failure Risk Score: Not Applicable
Course
Orders/Labs/Results
Orders:
Orders
08/12/24 11:43
EKG [Electrocardiogram (*1)] Urgent
Reason for Study: Shortness of Breath
08/12/24 11:44
EKG- Treatment ONCE
08/12/24 11:56
NT-proBNP Urgent
08/12/24 11:57
COVID-19 Antigen Urgent
Source: Nasal Swab
Complete Blood Count/With Diff Urgent
Influenza A+B Rapid Molecular Urgent
KIKA Source: Nasal Swab
Specimen Description:
08/12/24 15:25
Ipratropium/Albuterol Sulfate [Duoneb] 3 ml INH R NOW STA
CR Chest - 2 Views Urgent
Comment:
Reason For Exam: short of breath
08/12/24 16:12
Comprehensive Metabolic Panel Urgent
Abnormal Lab Results
08/12/24 08/12/24
11:57 16:12
WBC 11.1 H 10^3/uL
(4.8-10.8)
RBC 3.38 L 10^6/uL
(4.70-6.10)
Hgb 10.1 L g/dL
(13.0-18.0)
Hct 33.1 L %
(39.0-52.0)
MCV 97.9 H fL
(80.0-94.0)
MCHC 30.5 L g/dL
(33.0-37.0)
RDW 16.8 H %
(11.5-14.5)
Abs Immat Gran (auto) 0.1 H 10^3/uL
(0-0.05)
Absolute Neuts (auto) 9.7 H 10^3/uL
(1.4-6.5)
Absolute Lymphs (auto) 0.8 L 10^3/uL
(1.2-3.4)
Neutrophils % 87.8 H %
(42.2-75.2)
Lymphocytes % 7.4 L %
(20.5-51.1)
BUN 41 H mg/dl
(9-20)
Creatinine 1.6 H mg/dL
(0.7-1.3)
Glucose 187 H mg/dl
(70-99)
08/12/24 11:57
08/12/24 16:12
Vital Signs
Initial and Last Documented VS:
Initial Vital Signs
Temp Pulse Resp BP Pulse Ox
98.2 F 72 18 104/62 94
08/12/24 11:41 08/12/24 11:41 08/12/24 11:41 08/12/24 11:41 08/12/24 11:41
Last Documented Vital Signs
Temp Pulse Resp BP Pulse Ox
98 F 69 15 121/62 94
08/12/24 13:40 08/12/24 17:00 08/12/24 17:00 08/12/24 17:05 08/12/24 17:00
MDM/Problems Addressed
Differential Diagnosis Includes:
CHF, pneumonia, interstitial lung disease exacerbation
MDM/Problems Addressed:
89-year-old male with interstitial lung disease exacerbation, no signs of pneumonia or CHF. Stable for discharge.
Chronic conditions affecting care: HTN, Cardiomyopathy, Arrhythmia and Other (Interstitial lung disease)
Acute Exacerbation and/or Progression of Chronic Illness: HTN, Cardiomyopathy, Arrhythmia and Other (Interstitial lung)
*Radiology
Radiology exam reviewed: radiology read reviewed (Chest x-ray no acute findings)
*Pulse Oximetry
Patient hypoxic: no
*EKG
Interpreted by ED Provider?: Yes
EKG Intrepretation Date: 08/12/24
EKG Intrepretation Time: 11:52
Interpretation: abnormal
Comparison EKG: no comparison EKG present
Heart Rate: 73
Rate: normal
Rhythm: sinus
[place]: normal axis
Interval: normal interval
QRS Pattern: left vent hypertrophy
Ischemia: no ischemia
*Clinical Pharmacy Technician Interpretation
Rate: normal
Interpretation: normal
Heart Rate: 75
Rhythm: sinus
*Critical Care Note
Total Time (30-74mins, 75-104mins- exclusive of procedures): Not Applicable
Data Reviewed
Review of Other/Old Records Reveals: Radiology Studies (Prior chest x-ray and CT scan with no acute findings, interstitial lung disease in the past)
Source: previous radiology exam
Further Testing Considered But Not Given:
CT chest not indicated
Patient Management
Social determinants of health affecting care: Living situation and Strong social support
Escalation/DeEscalation of care consider admission/obs:
Admit not indicated
ED Attending Note
-
Portions of this chart may have been created with voice recognition software.� Occasional wrong word or��sound alike� substitutions may have occurred due to the inherent limitations of voice recognition software.
Discharge Plan
Departure
Patient Disposition: Home (Routine Discharge)
Date of Disposition: 08/12/24
Time of Disposition: 17:41
Patient with high blood pressure during this ER visit?: Yes
Condition: Good
Discharge Problem:
Shortness of breath, Interstitial pulmonary fibrosis
Instructions: Shortness of Breath (Dyspnea) (DC), Interstitial lung disease
Prescriptions:
New
albuterol sulfate 90 mcg/actuation aerosol powdr breath activated
2 inh inhalation Q4H PRN (Reason: shortness of breath or wheezing) Qty: 1 0RF
No Action
furosemide 40 mg Tablet
40 mg PO DAILY
sennosides [senna] 8.6 mg Tablet
8.6 mg PO QPM
prednisone 20 mg Tablet
20 mg PO DAILY
sulfamethoxazole-trimethoprim 800-160 mg Tablet
1 tab PO MOWEFR
mycophenolate mofetil 500 mg Tablet
1,000 mg PO BID
sertraline 25 mg Tablet
25 mg PO QPM
rosuvastatin 20 mg Tablet
20 mg PO QPM
Osteo Bi-Flex Triple Strength 750 mg-644 mg- 30 mg-1 mg Tablet
1 tab PO BID
Eliquis 5 mg tablet
5 mg PO BID
polyethylene glycol 3350 [HealthyLax] 17 gram Powder In Packet
17 g PO DAILY Qty: 30 0RF
miconazole nitrate 2 % Cream
1 applic TOPICAL BID
gabapentin 300 mg Capsule
300 mg PO BID
nitroglycerin [Nitrostat] 0.4 mg Tablet, Sublingual
0.4 mg SUBLINGUAL [id number] PRN (Reason: chest pains)
metoprolol succinate 50 mg Tablet Extended Release 24 Hr
50 mg PO BID Qty: 60 0RF
acetaminophen 325 mg tablet
650 mg PO Q4HPRN PRN (Reason: mild pain)
guaifenesin 600 mg tablet extended release 12hr
600 mg PO Q12H
Referrals:
Valentino Elder MD [Active] - Call in 1-3 days for appt
Van John MD [Family Provider] - Call in 1-3 days for appt
Interventions
Interventions:
*Risk Screen - Suicide Last Done: 08/12/24 11:41
*General Assessment Last Done: 08/12/24 11:41
*Neglect/Abuse Screening Last Done: 08/12/24 11:41
*ED COVID-19 Vaccine History Last Done: 08/12/24 11:41
ED- Cardiac Assessment Last Done: 08/12/24 15:20
ED- Pulmonary Assessment Last Done: 08/12/24 15:20
Discharge Date and Time
Print Language: ITALIAN
[2024-08-12 16:37] LABS: ALT (SGPT) 21 U/L (0-50); AST (SGOT) 23 U/L (17-59); Albumin 4.1 g/dl (3.5-5.0); Alkaline Phosphatase 55 U/L (38-126); Blood Urea Nitrogen 41 mg/dl (9-20); Calcium 8.9 mg/dl (8.4-10.2); Carbon Dioxide 25 mmol/L (22-30); Chloride 102 mmol/L (98-107); Glucose 187 mg/dl (70-99); Potassium 4.3 mmol/L (3.5-5.1); Sodium 139 mmol/L (135-145); Total Bilirubin 0.5 mg/dl (0.2-1.3); Total Protein 6.5 g/dl (6.3-8.2); eGFR 41.44
[2024-08-12 17:05] VITALS: BP 121/62
== END 2024-08-12 17:54 | disposition home or self-care (01) ==
LOC: EMR 11:22
PROVIDERS: Emergency Medicine; EMERGENCY PHYSICIAN Emergency Medicine; FAMILY PHYSICIAN Family Medicine
DX: J84.10 Pulmonary fibrosis, unspecified (principal); R06.02 Shortness of breath; Z11.52 Encounter for screening for COVID-19; I42.9 Cardiomyopathy, unspecified; I11.0 Hypertensive heart disease with heart failure; I50.9 Heart failure, unspecified; I48.91 Unspecified atrial fibrillation; E78.5 Hyperlipidemia, unspecified; E11.9 Type 2 diabetes mellitus without complications; E03.9 Hypothyroidism, unspecified; F41.9 Anxiety disorder, unspecified; B02.9 Zoster without complications; Z99.81 Dependence on supplemental oxygen; Z96.651 Presence of right artificial knee joint; Z86.73 Personal history of transient ischemic attack (TIA), and cerebral infarction without residual deficits; Z79.01 Long term (current) use of anticoagulants; Z88.5 Allergy status to narcotic agent
CPT/HCPCS: 99283; 94640; 71046; 80053; 83880; 85025; 87502; 87811; 93005

== ENCOUNTER 2024-08-15 23:38 | Inpatient (IN) | payer MEDICARE, OTHER, SELFPAY ==
[2024-08-15] VITALS (8 sets, daily range): BP systolic 105–135; BP diastolic 57–75; BMI 29.3
[2024-08-15 17:20] LABS: COVID-19 Antigen Negative (Negative)
[2024-08-15 17:24] LABS: NT-proBNP 507 pg/ml
[2024-08-15 17:27] LABS: ALT (SGPT) 19 U/L (0-50); AST (SGOT) 35 U/L (17-59); Albumin 3.9 g/dl (3.5-5.0); Alkaline Phosphatase 48 U/L (38-126); Blood Urea Nitrogen 31 mg/dl (9-20); Carbon Dioxide 19 mmol/L (22-30); Chloride 103 mmol/L (98-107); Glucose 113 mg/dl (70-99); Potassium 4.5 mmol/L (3.5-5.1); Sodium 135 mmol/L (135-145); Total Bilirubin 0.7 mg/dl (0.2-1.3); Total Protein 6.7 g/dl (6.3-8.2); eGFR 53.17
--- NOTE | 2024-08-15 17:56 | ED.GENMED ---
History of Present Illness
General
Chief Complaint: Cold/Flu/URI Symptoms
Source: patient and family
Time Seen by Provider: 08/15/24 17:47
History of Present Illness
History of Present Illness:
89-year-old male presents to the emergency room complaining of worsening cough, shortness of breath. Patient has been feeling unwell for the past week. He was seen here in the emergency room on 121 and had a workup. No evidence of an unstable
process at that time so the patient was discharged home. However he is feeling worse today. Patient does have a history of interstitial lung disease. He uses oxygen on an as-needed basis. He has been using continuously for the past 48 hours.
Positive chills. No nausea or vomiting.
Past History
Past History
ED Past Medical History: CHF, HTN and Other (Interstitial lung disease)
ED Past Surgical History: Orthopedic (Right knee replacement, kyphoplasty) and Other (Left carotid endarterectomy, aortic aneurysm repair)
Social History
Tobacco: Non-smoker
Alcohol: None
Drug: None
Phy Exam
Physical Exam
Physical Exam:
General: Awake, Alert, Oriented X3. Appears stated age, mild increased work of breathing
Vitals: unremarkable
Head: Atraumatic
Eyes: Pupils equal, EOMI
Throat: Airway intact, no exudates
Neck: Trachea midline
Lungs: X-ray wheezing, mild increased work of breathing
Heart: Regular rate, no murmurs
Abd: Soft, Nontender, No pulsatile mass
Neuro: Cranial nerves intact, muscle strength equal bilaterally, cerebellar exam normal
Skin: Warm, dry, no rash
Extremities: pulses equal b/l, no edema
Course
Orders/Labs/Results
Orders:
Orders
08/15/24 16:30
ECG [Electrocardiogram (*1)] Urgent
Reason for Study: Shortness of Breath
Other Reason for Exam: upper back pain
EKG- Treatment ONCE
08/15/24 16:54
BNP [NT-proBNP] Urgent
COVID-19 Antigen Urgent
Source: Nasal Swab
Comprehensive Metabolic Panel Urgent
Influenza A+B Rapid Molecular Urgent
KIKA Source: Nasal Swab
Specimen Description:
08/15/24 17:54
Ipratropium/Albuterol Sulfate [Duoneb] 3 ml INH R NOW STA
08/15/24 17:55
Bladder Scan- Treatment ONCE
CR Chest - 2 Views Urgent
Comment:
Reason For Exam: cough, sob
08/15/24 18:26
Complete Blood Count/With Diff Urgent
08/15/24 20:04
Acetaminophen [Tylenol] 1,000 mg PO NOW STA
Azithromycin 500 mg/250 ml [Zithromax Infusion] 500 mg in 250 ml IV NOW
CefTRIAXone [Rocephin] 1,000 mg IV NOW STA
Ipratropium/Albuterol Sulfate [Duoneb] 3 ml INH R NOW STA
08/15/24 20:10
Cefepime HCl [Maxipime] 2,000 mg IV NOW STA
08/15/24 20:25
Sterile Water [Sterile Water For Injection] 10 ml .ROUTE .[facility]
08/15/24 20:29
Vancomycin [Vancocin] 2,000 mg 0.9% Sodium Chloride 500 ml [Nss] 500 ml IV NOW
Abnormal Lab Results
08/15/24 1224
16:54 18:26
RBC 3.31 L 10^6/uL
(4.70-6.10)
Hgb 9.9 L g/dL
(13.0-18.0)
Hct 32.1 L %
(39.0-52.0)
MCV 97.0 H fL
(80.0-94.0)
MCHC 30.8 L g/dL
(33.0-37.0)
RDW 16.5 H %
(11.5-14.5)
Abs Immat Gran (auto) 0.1 H 10^3/uL
(0-0.05)
Immature Gran % 0.7 H %
(0-0.5)
Lymphocytes % 20.3 L %
(20.5-51.1)
Carbon Dioxide 19 L mmol/L
(22-30)
BUN 31 H mg/dl
(9-20)
Glucose 113 H mg/dl
(70-99)
08/15/24 18:26
08/15/24 16:54
Vital Signs
Initial and Last Documented VS:
Initial Vital Signs
Temp Pulse Resp BP Pulse Ox
97.7 F 79 24 127/63 90
08/15/24 16:30 08/15/24 16:30 08/15/24 16:30 08/15/24 16:30 08/15/24 16:30
Last Documented Vital Signs
Temp Pulse Resp BP Pulse Ox
98.4 F 78 19 132/74 96
08/15/24 20:01 08/15/24 18:00 08/15/24 18:00 08/15/24 18:00 08/15/24 20:00
MDM/Problems Addressed
Differential Diagnosis Includes:
Pneumonia, influenza, COVID, exacerbation of interstitial lung disease
MDM/Problems Addressed:
Patient presents with very persistent cough, increased oxygen demands. He is afebrile here and his white count is normal however his chest x-ray is positive for right lower lobe infiltrate. Will cover with antibiotics. He will require broader
spectrum coverage given his interstitial lung disease and home oxygen use. DuoNebs provided to help with coughing and wheezing. Patient will require hospitalization given his comorbidities, level of illness
Chronic conditions affecting care: DM, HTN and Arrhythmia (Atrial fibrillation)
Acute Exacerbation and/or Progression of Chronic Illness: Other (Interstitial lung disease)
*Radiology
Radiology exam reviewed: preliminary read by ED provider (Noted right lower lobe infiltrate on my review of the patient's chest x-ray)
*Pulse Oximetry
Patient hypoxic: yes
*EKG
Interpreted by ED Provider?: Yes
Interpretation: normal
Heart Rate: 73
Rate: normal
Rhythm: sinus
[place]: normal axis
Interval: normal interval
QRS Pattern: normal QRS
Ischemia: no ischemia
*Head Start Teacher Interpretation
Rate: normal
Interpretation: normal
Rhythm: sinus
*Critical Care Note
Total Time (30-74mins, 75-104mins- exclusive of procedures): Not Applicable
ED Attending Note
-
Portions of this chart may have been created with voice recognition software.� Occasional wrong word or��sound alike� substitutions may have occurred due to the inherent limitations of voice recognition software.
Discharge Plan
Departure
Patient Disposition: Admit
Date of Disposition: 08/15/24
Time of Disposition: 20:07
Admit to: Med/Surg
Presentation/result/management discussed w/ accepting MD/DO: Hospitalist
Condition: Fair
Discharge Problem:
Pneumonia, Wheezing, Interstitial lung disease
Prescriptions:
No Action
furosemide 40 mg Tablet
40 mg PO DAILY
sennosides [senna] 8.6 mg Tablet
8.6 mg PO QPM
prednisone 20 mg Tablet
20 mg PO DAILY
sulfamethoxazole-trimethoprim 800-160 mg Tablet
1 tab PO MOWEFR
mycophenolate mofetil 500 mg Tablet
1,000 mg PO BID
sertraline 25 mg Tablet
25 mg PO QPM
rosuvastatin 20 mg Tablet
20 mg PO QPM
Osteo Bi-Flex Triple Strength 750 mg-644 mg- 30 mg-1 mg Tablet
1 tab PO BID
Eliquis 5 mg tablet
5 mg PO BID
polyethylene glycol 3350 [HealthyLax] 17 gram Powder In Packet
17 g PO DAILY Qty: 30 0RF
miconazole nitrate 2 % Cream
1 applic TOPICAL BID
gabapentin 300 mg Capsule
300 mg PO BID
nitroglycerin [Nitrostat] 0.4 mg Tablet, Sublingual
0.4 mg SUBLINGUAL [id number] PRN (Reason: chest pains)
metoprolol succinate 50 mg Tablet Extended Release 24 Hr
50 mg PO BID Qty: 60 0RF
acetaminophen 325 mg tablet
650 mg PO Q4HPRN PRN (Reason: mild pain)
guaifenesin 600 mg tablet extended release 12hr
600 mg PO Q12H
albuterol sulfate 90 mcg/actuation aerosol powdr breath activated
2 inh inhalation Q4H PRN (Reason: shortness of breath or wheezing) Qty: 1 0RF
Referrals:
Jaylin Holguin MD [Family Provider] -
Interventions
Interventions:
*Risk Screen - Suicide Last Done: 08/15/24 16:30
*General Assessment Last Done: 08/15/24 18:06
*Neglect/Abuse Screening Last Done: 08/15/24 16:30
ED- Fall Risk Assessment Last Done: 08/15/24 18:09
*ED COVID-19 Vaccine History Last Done: 08/15/24 18:06
ED- Pulmonary Assessment Last Done: 08/15/24 20:00
Discharge Date and Time
Print Language: [id number]
[2024-08-15] MEDS: DUONEB 3 ML INH ×2 (18:12→20:30)
[2024-08-15 18:32] LABS: % Basophils 0.1 % (0-2); % Eosinophils 0.5 % (0-6); % Immature Granulocytes 0.7 % (0-0.5); % Lymphocytes 20.3 % (20.5-51.1); % Monocytes 7.3 % (1.7-9.3); % Neutrophils 71.1 % (42.2-75.2); Absolute Immature Granulocytes 0.1 10^3/uL (0-0.05); Absolute Lymphocytes 1.8 10^3/uL (1.2-3.4); Absolute Monocytes 0.6 10^3/uL (0.1-0.6); Absolute Neutrophils 6.3 10^3/uL (1.4-6.5); Hematocrit 32.1 % (39.0-52.0); Hemoglobin 9.9 g/dL (13.0-18.0); Mean Corp Hgb Conc. 30.8 g/dL (33.0-37.0); Mean Corpuscular Hgb 29.9 pg (27.0-31.0); Mean Platelet Volume 9.3 fL (7.4-10.4); Nucleated Red Blood Cells % 0 % (-); Platelet Count 155 10^3/uL (130-400); Red Blood Cell Count 3.31 10^6/uL (4.70-6.10); Red Cell Dist. Width 16.5 % (11.5-14.5); White Blood Cell Count 8.8 10^3/uL (4.8-10.8)
[2024-08-15] MEDS: TYLENOL 1000 MG PO (20:28)
[2024-08-15] MEDS: MAXIPIME 2000 MG IV (20:30)
[2024-08-15] MEDS: VANCOCIN 540 MG IV (20:54)
--- NOTE | 2024-08-15 22:42 | HPS.HSE ---
Family Physician
-
Family Physician: Jaylin Holguin MD
Chief Complaint
-
Cough and shortness of breath
History of Present Illness
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
arthritis, CAD, proximal atrial fibrillation presenting to the emergency department with approximately 4 days of productive cough.
Patient was full seen in the emergency department about 3 days ago with cough. At the time he had negative x-ray, negative COVID and flu test. He was sent home on inhalers. Patient reported that he continued to have cough productive of mucus. He
denied fevers. He reported shortness of breath. He uses 2 L of oxygen at bedtime but he found that he had to use the 2 L throughout the day to maintain his oxygenation and improve his shortness of breath. No recent travels or sick contacts. He
denies any lower extremity edema.
In the emergency department today he was afebrile, blood blood pressure was 135/70 with pulse rate of 80. He was satting at 7% on 2 L. ECG showed normal sinus rhythm at a rate of [address] or T wave changes. Chest x-ray shows a
right lower lobe infiltrate consistent with pneumonia. He had a white count of 8.8 with a hemoglobin of 9.9. Platelet count was 155. Electrolytes BUN/creatinine were unremarkable and unchanged from prior.
Medical History
Past Medical History
Past Medical History: Reports CHF, COPD, GERD, HTN, Hypercholesterolemia and NIDDM
Additional Past Medical History:
Interstitial lung disease
Rheumatoid arthritis
Past Surgical History: Reports Other (Infrarenal aortic abdominal aneurysm s/p repair)
Social History
Tobacco: Former Smoker
Alcohol: None
Drug: None
Personal:
Living: With Family
Employment: Retired
Family History
Family History: Not pertinent
Allergies / Home Medications
Allergies reflects when Allergies were last updated in [facility].
Home Medications with original date entered in [facility]back
Allergy/Medication List:
Allergies
Allergy/AdvReac Type Severity Reaction Status Date / Time
codeine Allergy Vomiting Verified 08/15/24 16:29
Home Medications
furosemide 40 mg tablet 40 mg PO DAILY Fluid Retention/Swelling 03/03/24
mycophenolate mofetil 500 mg tablet 1,000 mg PO BID IMMUNOSUPRESSANT 03/03/24
prednisone 20 mg tablet 20 mg PO DAILY Anti-Inflammatory 03/03/24
rosuvastatin 20 mg tablet 20 mg PO QPM High Cholesterol 03/03/24
sennosides 8.6 mg tablet (senna) 8.6 mg PO QPM Constipation 03/03/24
sertraline 25 mg tablet 25 mg PO QPM Depression 03/03/24
sulfamethoxazole 800 mg-trimethoprim 160 mg tablet 1 tab PO MOWEFR Infection 03/03/24
glucosamine 750 [id number]-kus no1 644 mg-C 30 mg-nsisa 1 mg tablet (Osteo Bi-Flex Triple Strength) 1 tab PO BID Supplement 04/10/24
apixaban 5 mg tablet (Eliquis) 5 mg PO BID AFib 04/19/24
polyethylene glycol 3350 17 gram oral powder packet (HealthyLax) 17 g PO DAILY #30 ea 04/29/24
gabapentin 300 mg capsule 300 mg PO BID Pain 06/08/24
miconazole nitrate 2 % topical cream 1 applic topical BID groin rash 06/08/24
nitroglycerin 0.4 mg sublingual tablet (Nitrostat) 0.4 mg sublingual [id number] PRN chest pains 06/08/24
metoprolol succinate 50 mg tablet,extended release 24 hr 50 mg PO BID #60 tabs 06/12/24
acetaminophen 325 mg tablet 650 mg PO Q4HPRN PRN mild pain 08/12/24
guaifenesin 600 mg tablet, extended release 12 hr 600 mg PO Q12H 08/12/24
Review of Systems
-
History Source: Patient
Constitutional: Reports No Symptoms
EENT: Reports No Symptoms
Respiratory: Reports Cough and Trouble Breathing
Cardiac: Reports No Symptoms
Abdomen/GI: Reports Nausea
: Reports No Symptoms
Musculoskeletal: Reports No Symptoms
Skin: Reports No Symptoms
Neurological: Reports No Symptoms
Endocrine: Reports No Symptoms
Hematologic/Lymphatic: Reports No Symptoms
Psych: Reports No Symptoms
Physical Exam
Vital Signs
Vital Signs
Temp Pulse Resp BP Pulse Ox
98.4 F 80 22 135/72 97
08/15/24 20:01 08/15/24 20:30 08/15/24 20:30 08/15/24 20:01 08/15/24 20:15
Physical Exam
General: Well Developed, Respiratory Distress and Obese
HEENT: NormoCephalic, Anicteric, Moist mucous membranes, Atraumatic, PERRLA and Oxygen
Respiratory: Wheezes, Crackles and Non Labored Respirations
Cardiac: S1/S2 and Regular Rhythm
Breast: Deferred by me
GI: Soft, Normal Bowel Sounds and Distended
Rectal: Deferred by Provider
Genito-urinary: Deferred by me
Musculoskeletal: No Clubbing, No Cyanosis and No Edema
Skin: Warm
Neuro: AO x 3
Hematologic/Lymphatic: No Lymphadenopathy
Psych: Calm
Laboratory Results
-
08/15/24 18:26
08/15/24 16:54
Laboratory Results
Total Bilirubin 0.7 mg/dl (0.2-1.3) 08/15/24 16:54
AST 35 U/L (17-59) 08/15/24 16:54
ALT 19 U/L (0-50) 08/15/24 16:54
Alkaline Phosphatase 48 U/L (38-126) 08/15/24 16:54
Data Reviewed
-
Diagnostic Radiology: Image Personally Visualized and interpreted and Report Reviewed by me
Medical Tests (Nuc Med, Echo, EKG etc): Image Personally Visualized and interpreted
Lab Data: Labs Reviewed by me
Old Records: Reviewed
Impression/Plan
-
IMPRESSION:
89-year-old with multiple comorbidities including chronic immunosuppression in the setting of interstitial lung disease and rheumatoid arthritis who presents to the emergency department with 3 days of cough and shortness of breath found to have a
right lower lobe infiltrate consistent with pneumonia. He has slight increasing baseline oxygen requirement. Hemodynamically stable and afebrile. Negative COVID and influenza test.
PLAN:
1. Pneumonia - RLL infilftrate, cough, SOB. No fever or leukocytosis but immunocompromised.
- admit to med/surg
- sputum culture
- legionella ag
- mrsa screen
- continue vanc/ceftriaxone/azithromycin given immunosupression
- increase predisone to 40mg daily given persistent end expiratory wheeze
- NEBS prn wheezes
- ID consult
2. CHF - Does not apppear to be in volume overload at this time
- furosemide on hold, check daily weights and i/o
3. ILD - With focal infiltrate and productive cough, unlikely ILD flair
- abx as above, hold bactrim
- prednisone 40 daily and inhaled steroids
- continue cellcept
4. pAFIB
- continue metoprolol and eliquis
Code status - full code
[2024-08-15] MEDS: FLUSH (NSS) 1 FLUSH IV (23:09)
[2024-08-16 00:01] VITALS: BP 124/65
[2024-08-16 01:22] VITALS: BP 116/62; BMI 29.5
[2024-08-16] MEDS: TYLENOL 650 MG PO ×2 (02:09→06:08)
--- NOTE | 2024-08-16 03:42 | PTCARENOTE ---
Rec'd pt. into room 410-2 from ED AAOx3 but forgetful, VSS, pt. ambulates with assist x 1 - gait unsteady; fall precautions initiated. Lungs coarse with some exp. wheezing, pulse ox on 3L O2 92%, some GUADALUPE assessed as well as frequent harsh
nonproductive cough. Pt. oriented to room and plan of care, understanding verbalized. Bed alarm on as pt. states he may forget to ring to go to bathroom, says he can't void in a urinal . Currently sleeping.
[2024-08-16] MEDS: STERILE WATER FOR INJECTION 10 ML IV ×3 (05:08→20:23)
[2024-08-16] MEDS: MAXIPIME 1000 MG IV ×3 (05:08→20:23)
[2024-08-16] MEDS: TESSALON PERLES 100 MG PO (06:23)
[2024-08-16] MEDS: DUONEB 3 ML INH (06:37)
--- NOTE | 2024-08-16 06:38 | PTCARENOTE ---
Pt. whimpers/moans loudly due to chest/rib pain with coughing (cough is very harsh, non-productive, pulse ox 3L 94-95%). Tylenol only effective for 2-3 hours at a time. Hospitalist VANE Almaguer notified, orders for Tessalon & neb treatments obtained.
[2024-08-16 07:30] VITALS: BP 118/62
[2024-08-16 07:46] LABS: Hematocrit 30.3 % (39.0-52.0); Hemoglobin 9.2 g/dL (13.0-18.0); Mean Corp Hgb Conc. 30.4 g/dL (33.0-37.0); Mean Corpuscular Hgb 30.4 pg (27.0-31.0); Mean Platelet Volume 9.2 fL (7.4-10.4); Platelet Count 142 10^3/uL (130-400); Red Blood Cell Count 3.03 10^6/uL (4.70-6.10); Red Cell Dist. Width 16.7 % (11.5-14.5); White Blood Cell Count 7.4 10^3/uL (4.8-10.8)
[2024-08-16 07:57] LABS: Blood Urea Nitrogen 25 mg/dl (9-20); Calcium 8.4 mg/dl (8.4-10.2); Carbon Dioxide 24 mmol/L (22-30); Chloride 101 mmol/L (98-107); Estimated Creatinine Clearance 46 ml/min; Glucose 127 mg/dl (70-99); Potassium 4.1 mmol/L (3.5-5.1); Sodium 135 mmol/L (135-145); eGFR 58.53
--- NOTE | 2024-08-16 08:15 | PHA.VAN.IN ---
Assessment
- Assessment
Renal Function: Appears similar to baseline (baseline 1.0-1.2)
Maximum Temperature: 98.4
Concomitant Antimicrobials: cefepime, azithromycin
AUC Dosing Plan
- Dosing Variables
Dosing Weight (kg): 95.8
Dosing CrCl (ml/min): 46
Vd coefficient (L/kg): 0.7
- Empiric Dosing
Initial / Loading Dose: 2000mg 08/15 20:54 (20.9 mg/kg)
Maintenance Regimen: vanc 1500mg q24 h
Estimated AUC (mcg*h/mL): 542
Estimated Peak (mcg*h/mL): 34.9
Estimated Trough (mcg/ml): 13.4
Estimated Half Life (H): 16.3
- Monitoring
No levels ordered at this time: consider over the next few days
MRSA Screen: Ordered per protocol
Pharmacokinetics Vancomycin I
- -
Patient Age: 89
Patient Sex: Male
Vancomycin Day #: 1
Indication: Pulmonary/Respiratory
Requesting Provider: Dr Mendieta
Pertinent Antimicrobial Allergies:
no pertinent allergies
Height / Weight:
Height 5 ft 11 in
Actual Weight 95.85 kg
Pertinent Past Medical History: on prednisone and cellcept chronically - interstitial lung disease
- Vital Signs / Lab Results
Temp Pulse Resp BP Pulse Ox
98.2 F 88 16 116/62 94
08/16/24 06:14 08/16/24 06:40 08/16/24 06:40 08/16/24 01:22 08/16/24 06:40
Lab Results - Hematology
08/15/24 08/16/24
18:26 06:53
WBC 8.8 7.4
Lab Results - Chemistry
08/15/24 08/16/24
16:54 06:53
BUN 31 H 25 H
Creatinine 1.3 1.2
Estimated Creat Clear 46
Albumin 3.9
Microbiology Results
08/15/24 16:54 Influenza Types A & B (OUMAR) - Final
Nasal Swab Negative for Influenza A & B, NAAT
Negative results must be combined with clinical observations
and patient history.
Nucleic Acid Amplification test (NAAT)performed on the
[employer] platform.
[2024-08-16] MEDS: CELLCEPT 1000 MG PO (08:19)
[2024-08-16] MEDS: ZITHROMAX INFUSION 250 IV (08:19)
[2024-08-16] MEDS: MUCINEX 600 MG PO (08:23)
[2024-08-16] MEDS: NEURONTIN 300 MG PO (08:24)
[2024-08-16] MEDS: ELIQUIS 5 MG PO ×2 (08:24→20:18)
[2024-08-16] MEDS: DELTASONE 40 MG PO (08:24)
[2024-08-16] MEDS: TOPROL XL 50 MG PO ×2 (08:25→20:26)
[2024-08-16] MEDS: MIRALAX 17 GRAMS PO (08:25)
--- NOTE | 2024-08-16 08:55 | W.PN.HOSP.TC ---
Today's Communication/Plan
-
see bold
Assessment / Plan
Assessment / Plan
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
CAD, proximal atrial fibrillation presenting to the emergency department with approximately 4 days of productive cough.
Patient was full seen in the emergency department about 3 days ago with cough. At the time he had negative x-ray, negative COVID and flu test. He was sent home on inhalers. Patient reported that he continued to have cough productive of mucus. He
denied fevers. He reported shortness of breath. He uses 2 L of oxygen at bedtime but he found that he had to use the 2 L throughout the day to maintain his oxygenation and improve his shortness of breath. No recent travels or sick contacts. He
denies any lower extremity edema.
A/P:
1. Community-acquired pneumonia
Acute hypoxic respiratory insufficiency
- RLL infilftrate, cough, SOB. No fever or leukocytosis but immunocompromised.
- Flu/covid neg, f/u on urine legionella antigen, follow-up on sputum culture and Gram stain.
- Continue vanc/ceftriaxone/azithromycin given immunosupression
- Increase prednisone to 40mg daily given persistent end expiratory wheeze
- NEBS prn wheezes
- Cancel ID consult
-Currently requiring 3 L of oxygen, wean as tolerated
2. 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
- Does not apppear to be in volume overload at this time
- Furosemide on hold, check daily weights and i/o
3. ILD - With focal infiltrate and productive cough, unlikely ILD flair
- On prednisone and CellCept at home
- Holding Bactrim, resume when off of antibiotics for pneumonia
4. Paroxysmal atrial fibrillation
- continue metoprolol and eliquis
5. Rheumatoid arthritis
On prednisone and CellCept at home
Holding Bactrim, resume when off of antibiotics for pneumonia
Pain meds ordered
6. Type 2 diabetes
Carb controlled diet, sliding scale insulin, check hemoglobin A1c
7. AAA status post repair 04/21/2024
8. Hypothyroidism
Continue Synthroid
9. Depression
Continue SSRI
10. Hyperlipidemia
Continue statin
11. Severe hearing loss
DVT prophylaxis�Eliquis
Full code
Updated son at bedside 08/16
Total time spent to see the patient on the floor, examine the patient, review data and lab results, discuss treatment plan with patient, nursing staff around 51 minutes.
Physical Exam
General: No acute distress
HEENT: Normocephalic, Atraumatic, EOMI, MMM
Severe hearing loss noted
Respiratory: Bibasilar crackles with wheezing
Cardiac: Normal S1/S2, Regular Rate and Rhythm
GI: Soft, Nontender, Nondistended, Normal Bowel Sounds
Extremities: No Clubbing, Cyanosis, or Edema
Neuro: Nonfocal/Grossly Intact
Anticipated Discharge: > 48 hours
Subjective/Interval History
-
Date of Service: August 16, 2024
Patient is severely hard of hearing, and his hearing aids have run out of battery. He complains of severe pain. Continues to cough and be short of breath. No fever, no vomiting.
Objective Data
-
Labs:
Laboratory Results
08/16/24
06:53
WBC 7.4
Hgb 9.2 L
Hct 30.3 L
Plt Count 142
Sodium 135
Potassium 4.1
Chloride 101
Carbon Dioxide 24
BUN 25 H
Creatinine 1.2
Glucose 127 H
Calcium 8.4
Vital Signs:
Vital Signs
Temp Pulse Resp BP Pulse Ox
99.8 F 87 20 118/62 92
08/16/24 07:30 08/16/24 07:30 08/16/24 07:30 08/16/24 07:30 08/16/24 08:00
I&O
08/15/24 08/16/24 08/17/24
06:59 06:59 06:59
Intake Total 240 / 240
Output Total 250 / 250
Balance -10 / -10
[2024-08-16] MEDS: ULTRAM 50 MG PO (09:01)
[2024-08-16] MEDS: DILAUDID 0.5 MG IV (10:17)
--- NOTE | 2024-08-16 10:35 | PTCARENOTE ---
Patient attempted to climb out of bed setting bed alarm off. Med sitter put in place. Call calhoun within reach.
[2024-08-16] MEDS: LIDOCAINE 4% PATCH 1 PATCH TOPICAL (12:09)
[2024-08-16] MEDS: ROXICODONE 5 MG PO ×2 (13:47→20:18)
[2024-08-16 14:35] LABS: Glycohemoglobin (HgbA1c) 7.6 % (4.0-5.6)
[2024-08-16 15:30] VITALS: BP 124/61
[2024-08-16 16:39] LABS: Glucose - Point of Care 210 mg/dl (70-99)
--- NOTE | 2024-08-16 17:02 | PTCARENOTE ---
Patient with crying and moaning during shift complaining of pain to L sided rib cage. Dr. oTrrez. Pain medicine ordered see OCT. Private room pending.
[2024-08-16] MEDS: NOVOLOG FLEXPEN-MODERATE RESISTANCE 3 UNITS SC (17:07)
[2024-08-16] MEDS: SENOKOT 8.6 MG PO (17:08)
[2024-08-16] MEDS: ZOLOFT 25 MG PO (17:08)
[2024-08-16] MEDS: CRESTOR 20 MG PO (17:08)
--- NOTE | 2024-08-16 18:54 | W.PN.UPDATE ---
Update Note
Progress Note Update
Was notified by nursing her at 645pm that he wanted a suicide pill.
I evaluated him. He had no suicidal homicidal ideations. I do believe he is sundowning as he thought he was bleeding from his finger and then thought he was bleeding from his nose however this was not the case. One-to-one was present and
witnessed that he is not suicidal.
He denies being upset, depressed, tearful, changes in sleep pattern, he feels that he has self-worth.
He told me that he stepped on a landmine on his first tour in [place]. Has difficulty hearing.
Recommended to nursing to provide him with his Zoloft. He did admit that he felt nauseous. Therefore ordered Zofran, QTc 425. Zofran can interact with azithromycin and prolong QTc. EKG ordered for the morning. One-to-one ordered for tonight.
Primary team should reassess mental status in the a.m. if believed to be true intent of self-harm then at that point would consult psychiatry.
[2024-08-16] MEDS: ZOFRAN 4 MG IV (19:06)
--- NOTE | 2024-08-16 19:27 | PTCARENOTE ---
Pt arrived to unit as a transfer from [facility]. Pt crying and moaning and was the reason for the transfer as he was disruptive to roommate. When asked how I can help him he stated he wanted a 'suicide pill'. Pt says he is having nausea but seems to be
just coughing up yellow mucous. TT to cross coverage, Dr Jerardo Lawrence. He came to beside and patient denied suicidal thoughts. Pt on medsitter already. One to one ordered for the night. IV zofran given.
[2024-08-16] MEDS: MUCINEX PO ×2 (20:25→21:00)
[2024-08-16] MEDS: NEURONTIN PO ×2 (20:25→21:00)
[2024-08-16] MEDS: CELLCEPT PO ×2 (20:35→21:00)
--- NOTE | 2024-08-16 20:41 | PTCARENOTE ---
Pt still very upset even with one to one in room. Pt taking some medication then refusing others. Pt states his whole body hurts with no specifics. Oxy given. He spoke with EMIGDIO Bellamy and she will come to see him now. She told me that he has not
been 'well' mentally for awhile.
[2024-08-16 21:14] LABS: Glucose - Point of Care 183 mg/dl (70-99)
--- NOTE | 2024-08-16 23:30 | PTCARENOTE ---
Assumed care of patient at 2330.
[2024-08-16 23:46] VITALS: BP 136/68
[2024-08-17] MEDS: MAXIPIME 1000 MG IV ×3 (03:53→20:31)
[2024-08-17] MEDS: STERILE WATER FOR INJECTION 10 ML IV ×3 (03:54→20:32)
[2024-08-17] MEDS: VANCOCIN 530 MG IV (05:31)
[2024-08-17 06:00] VITALS: BMI 29.5
[2024-08-17 07:16] VITALS: BP 141/72
[2024-08-17 07:43] LABS: Hematocrit 28.9 % (39.0-52.0); Hemoglobin 9.1 g/dL (13.0-18.0); Mean Corp Hgb Conc. 31.5 g/dL (33.0-37.0); Mean Corpuscular Hgb 30.3 pg (27.0-31.0); Mean Corpuscular Volume 96.3 fL (80.0-94.0); Mean Platelet Volume 9.6 fL (7.4-10.4); Platelet Count 164 10^3/uL (130-400); Red Cell Dist. Width 16.4 % (11.5-14.5); White Blood Cell Count 6.9 10^3/uL (4.8-10.8)
[2024-08-17 08:02] LABS: Blood Urea Nitrogen 25 mg/dl (9-20); Calcium 8.4 mg/dl (8.4-10.2); Carbon Dioxide 23 mmol/L (22-30); Chloride 104 mmol/L (98-107); Estimated Creatinine Clearance 46 ml/min; Glucose 113 mg/dl (70-99); Magnesium 2.4 mg/dl (1.6-2.3); Potassium 4.3 mmol/L (3.5-5.1); Sodium 136 mmol/L (135-145); eGFR 58.53
[2024-08-17] MEDS: ROXICODONE 5 MG PO ×2 (08:10→18:01)
--- NOTE | 2024-08-17 08:26 | W.PN.HOSP.TC ---
Today's Communication/Plan
-
see bold
Assessment / Plan
Assessment / Plan
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
CAD, proximal atrial fibrillation presenting to the emergency department with approximately 4 days of productive cough.
Patient was full seen in the emergency department about 3 days ago with cough. At the time he had negative x-ray, negative COVID and flu test. He was sent home on inhalers. Patient reported that he continued to have cough productive of mucus. He
denied fevers. He reported shortness of breath. He uses 2 L of oxygen at bedtime but he found that he had to use the 2 L throughout the day to maintain his oxygenation and improve his shortness of breath. No recent travels or sick contacts. He
denies any lower extremity edema.
A/P:
1. Community-acquired pneumonia
Acute hypoxic respiratory insufficiency
- RLL infilftrate, cough, SOB. No fever or leukocytosis but immunocompromised.
- Flu/covid neg, f/u on urine legionella antigen, follow-up on sputum culture and Gram stain.
- Continue ceftriaxone/azithromycin D3 given immunosuppression, discontinue vancomycin as MRSA PCR is negative
- Increased prednisone to 40mg daily given persistent end expiratory wheeze (on prednisone 20 mg daily at home)
- NEBS prn wheezes. Canceled ID consult
- Currently requiring 2 L, down from 3 L of oxygen, wean as tolerated. Usually only wears 2 L at night at home.
- Consult PT, no matter what their recommendations are patient wishes to go home with home PT
2. 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
- Does not apppear to be in volume overload at this time
- Furosemide on hold, check daily weights and i/o
3. ILD - With focal infiltrate and productive cough, unlikely ILD flair
- On prednisone and CellCept at home
- Holding Bactrim, resume when off of antibiotics for pneumonia
4. Paroxysmal atrial fibrillation
- continue metoprolol and eliquis
5. Rheumatoid arthritis
On prednisone and CellCept at home
Holding Bactrim, resume when off of antibiotics for pneumonia
Pain meds ordered, add laxatives
6. Type 2 diabetes
Carb controlled diet, sliding scale insulin, hemoglobin A1c 7.6
7. AAA status post repair 04/21/2024
8. Hypothyroidism
Continue Synthroid
9. Depression
Patient reports that he was joking with the nurse on 08/16 about asking for a suicide pill
He is not suicidal, has no plans to harm himself, discontinue 1-1
Continue sertraline
10. Hyperlipidemia
Continue statin
11. Severe hearing loss
DVT prophylaxis�Eliquis
DNR confirmed by son/Law on phone 08/17
Updated son on phone 08/17
Total time spent to see the patient on the floor, examine the patient, review data and lab results, discuss treatment plan with patient, nursing staff around 50 minutes.
Physical Exam
General: No acute distress
HEENT: Normocephalic, Atraumatic, EOMI, MMM
Severe hearing loss noted
Respiratory: Bibasilar crackles, wheezing improved
Cardiac: Normal S1/S2, Regular Rate and Rhythm
GI: Soft, Nontender, Nondistended, Normal Bowel Sounds
Extremities: No Clubbing, Cyanosis, or Edema
Neuro: Nonfocal/Grossly Intact
Anticipated Discharge: 24 - 48 hours
Subjective/Interval History
-
Date of Service: August 17, 2024
Patient continues to cough, and is short of breath. No fever, no vomiting. He denies suicidal ideation. No chest pain.
Objective Data
-
Labs:
Laboratory Results
08/17/24
06:42
WBC 6.9
Hgb 9.1 L
Hct 28.9 L
Plt Count 164
Sodium 136
Potassium 4.3
Chloride 104
Carbon Dioxide 23
BUN 25 H
Creatinine 1.2
Glucose 113 H
Calcium 8.4
Vital Signs:
Vital Signs
Temp Pulse Resp BP Pulse Ox
97.8 F 72 16 141/72 98
08/17/24 07:16 08/17/24 07:16 08/17/24 07:16 08/17/24 07:16 08/17/24 07:16
I&O
08/16/24 08/17/24 08/18/24
06:59 06:59 06:59
Intake Total 240 / 240 360 / 360
Output Total 250 / 250 350 / 350
Balance -10 / -10 10 / 10
[2024-08-17 08:41] LABS: Glucose - Point of Care 100 mg/dl (70-99)
[2024-08-17] MEDS: LIDOCAINE 4% PATCH 1 PATCH TOPICAL (09:03)
[2024-08-17] MEDS: NEURONTIN 300 MG PO ×2 (09:04→20:30)
[2024-08-17] MEDS: MUCINEX 600 MG PO ×2 (09:05→20:30)
[2024-08-17] MEDS: TOPROL XL 50 MG PO ×2 (09:05→20:33)
[2024-08-17] MEDS: DELTASONE 40 MG PO (09:05)
[2024-08-17] MEDS: ELIQUIS 5 MG PO ×2 (09:05→20:30)
[2024-08-17] MEDS: CELLCEPT 1000 MG PO ×2 (09:07→20:30)
[2024-08-17] MEDS: MIRALAX 17 GRAMS PO (09:11)
[2024-08-17] MEDS: NOVOLOG FLEXPEN-MODERATE RESISTANCE SC ×2 (09:16→14:59)
[2024-08-17] MEDS: ZITHROMAX INFUSION 250 IV (09:17)
--- NOTE | 2024-08-17 09:27 | PHA.VAN.FU ---
Vancomycin Assessment / Plan
- Assessment
Renal Function: Stable
WBC's are: WNL
In the past 24 hrs, patient has been: Afebrile
Concomitant Antimicrobials: cefepime, azithromycin
- Dosing Plan
Continue: vanc 1500mg q24hr
- Monitoring Plan
No level(s) ordered at this time: consider in the upcoming days
- Follow Up
Pharmacy will continue to follow.
Vancomycin Follow UP
- -
Patient Age: 89
Patient Sex: Male
Vancomycin Day #: 2
Indication: Pulmonary/Respiratory
Requesting Provider: Dr Mendieta
Pertinent Antimicrobial Allergies:
no pertinent allergies
Height / Weight:
Height 5 ft 11 in
Actual Weight 95.85 kg
Pertinent Past Medical History: on prednisone and cellcept chronically - interstitial lung disease
- Vital Signs / Lab Results
Temp Pulse Resp BP Pulse Ox
97.8 F 72 16 141/72 98
08/17/24 07:16 08/17/24 07:16 08/17/24 07:16 08/17/24 07:16 08/17/24 07:16
Lab Results - Hematology
08/15/24 08/16/24 08/17/24
18:26 06:53 06:42
WBC 8.8 7.4 6.9
Lab Results - Chemistry
08/15/24 08/16/24 08/17/24
16:54 06:53 06:42
BUN 31 H 25 H 25 H
Creatinine 1.3 1.2 1.2
Estimated Creat Clear 46 46
Albumin 3.9
Microbiology Results
08/16/24 01:47 Nasal Screen MRSA (PCR) - Final
Nose MRSA not detected - performed by PCR methodology.
08/15/24 16:54 Influenza Types A & B (OUMAR) - Final
Nasal Swab Negative for Influenza A & B, NAAT
Negative results must be combined with clinical observations
and patient history.
Nucleic Acid Amplification test (NAAT)performed on the
[employer] platform.
--- NOTE | 2024-08-17 11:03 | W.PN.UPDATE ---
Update Note
Progress Note Update
Patient is not suicidal. Will discontinue one-to-one observation.
[2024-08-17] MEDS: FLUSH (NSS) 2 FLUSH IV (11:31)
[2024-08-17 12:16] LABS: Glucose - Point of Care 155 mg/dl (70-99)
[2024-08-17 12:30] VITALS: BP 137/61; PULSE 77; O2SAT 98
[2024-08-17 15:10] VITALS: BP 134/71
[2024-08-17 17:15] LABS: Glucose - Point of Care 177 mg/dl (70-99)
--- NOTE | 2024-08-17 17:27 | CARDSERVLU ---
Addendum entered by Maryam Levy 08/17/24 17:28:
This note was completed in error
Original Note:
Echocardiogram with Lumason completed after protocol screening completed. Allergies verified.
Patent IV site:
IV site flushed with 0.9% NaCl pre and post administration.
Diluted bolus method utilized to enhance visualization of ventricular smith.
Total volume given: ____ mL
Patient tolerated all procedures well without complications.
--- NOTE | 2024-08-17 17:28 | CM ---
Case managment reviewed chart. Patient is here for CAP. He is currently still utilizing 02. He lives at [facility]. He is independent with a scooter. Hw owns two walkers. He shared that he is independent to walk short distances, like the BR in his
hospital room, alone. He has a son who provides transportation for his appointments. He does not drive himself. 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 He lost his of cancer within the year. He said
he does struggle from depression because of this. Has an active PCP and pharmacy. No +SDOHs.
ANTICIPATED DISCHARGE PLAN: Discharge to home, when medically stable. Wean off 02.
[2024-08-17] MEDS: CRESTOR 20 MG PO (17:58)
[2024-08-17] MEDS: ZOLOFT 25 MG PO (17:58)
[2024-08-17] MEDS: TESSALON PERLES 100 MG PO (18:00)
[2024-08-17] MEDS: SENOKOT 8.6 MG PO (18:00)
[2024-08-17] MEDS: NOVOLOG FLEXPEN-MODERATE RESISTANCE 1 UNITS SC (18:01)
[2024-08-17] MEDS: SENOKOT-S 2 TABLET PO (20:30)
[2024-08-17 20:55] VITALS: BP 141/69
[2024-08-17 21:34] LABS: Glucose - Point of Care 128 mg/dl (70-99)
[2024-08-17 23:33] VITALS: BP 112/59
[2024-08-18] MEDS: STERILE WATER FOR INJECTION 10 ML IV ×2 (04:57→11:31)
[2024-08-18] MEDS: MAXIPIME 1000 MG IV ×2 (04:57→11:31)
[2024-08-18] MEDS: VANCOCIN 530 MG IV (05:15)
[2024-08-18 06:00] VITALS: BMI 29.2
[2024-08-18 07:44] LABS: Hematocrit 26.9 % (39.0-52.0); Hemoglobin 8.4 g/dL (13.0-18.0); Mean Corp Hgb Conc. 31.2 g/dL (33.0-37.0); Mean Corpuscular Hgb 29.8 pg (27.0-31.0); Mean Corpuscular Volume 95.4 fL (80.0-94.0); Mean Platelet Volume 9.2 fL (7.4-10.4); Platelet Count 140 10^3/uL (130-400); Red Blood Cell Count 2.82 10^6/uL (4.70-6.10); Red Cell Dist. Width 16.3 % (11.5-14.5); White Blood Cell Count 6.8 10^3/uL (4.8-10.8)
[2024-08-18 08:03] VITALS: BP 115/51
[2024-08-18 08:08] VITALS: BMI 29.2
[2024-08-18 08:11] LABS: Blood Urea Nitrogen 26 mg/dl (9-20); Calcium 7.9 mg/dl (8.4-10.2); Carbon Dioxide 24 mmol/L (22-30); Chloride 107 mmol/L (98-107); Estimated Creatinine Clearance 46 ml/min; Glucose 103 mg/dl (70-99); Potassium 4.2 mmol/L (3.5-5.1); Sodium 136 mmol/L (135-145); eGFR 58.53
[2024-08-18 08:45] LABS: Glucose - Point of Care 113 mg/dl (70-99)
[2024-08-18] MEDS: BACITRACIN OINTMENT 1 APPLIC TOPICAL ×3 (08:50→20:55)
[2024-08-18] MEDS: NOVOLOG FLEXPEN-MODERATE RESISTANCE SC (08:50)
[2024-08-18] MEDS: CELLCEPT 1000 MG PO ×2 (08:50→19:51)
[2024-08-18] MEDS: SENOKOT-S 2 TABLET PO ×2 (08:50→19:51)
[2024-08-18] MEDS: MUCINEX 600 MG PO ×2 (08:50→19:51)
[2024-08-18] MEDS: ELIQUIS 5 MG PO ×2 (08:51→19:51)
[2024-08-18] MEDS: NEURONTIN 300 MG PO ×2 (08:51→19:51)
[2024-08-18] MEDS: TOPROL XL 50 MG PO ×2 (08:51→19:54)
[2024-08-18] MEDS: DELTASONE 40 MG PO (08:51)
[2024-08-18] MEDS: MIRALAX 17 GRAMS PO (08:51)
[2024-08-18] MEDS: LIDOCAINE 4% PATCH 1 PATCH TOPICAL (08:52)
[2024-08-18] MEDS: ZITHROMAX INFUSION 250 IV (08:54)
--- NOTE | 2024-08-18 09:01 | W.PN.HOSP.TC ---
Addendum entered and electronically signed by Kim Crum MD 08/18/24 14:12:
confirmed with son, patient is now taking Lasix again at home
Addendum entered and electronically signed by Kim Crum MD 08/18/24 10:12:
*patient is on IV Cefepime, not Ceftriaxone
Original Note:
Today's Communication/Plan
-
home O2 testing- possible DC today based on results
Assessment / Plan
Assessment / Plan
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
CAD, proximal atrial fibrillation presenting to the emergency department with approximately 4 days of productive cough admitted for treatment of CAP and hypoxic resp insufficiency .
A/P:
1. Community-acquired pneumonia
Acute hypoxic respiratory insufficiency
- RLL infilftrate, cough, SOB. No fever or leukocytosis but immunocompromised.
- Flu/covid neg, f/u on urine legionella antigen, follow-up on sputum culture and Gram stain.
- Continue ceftriaxone/azithromycin D4; Vanc d/c'd
- Increased prednisone to 40mg daily given persistent end expiratory wheeze (on prednisone 20 mg daily at home)
- NEBS prn wheezes. Canceled ID consult
- Currently requiring 2 L, down from 3 L of oxygen, wean as tolerated. Usually only wears 2 L at night at home - home O2 testing today
- home PT ordered
2. 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
- Does not apppear to be in volume overload at this time
- Furosemide on hold, check daily weights and i/o
3. ILD - With focal infiltrate and productive cough, unlikely ILD flair
- On prednisone and CellCept at home
- resume Bactrim for PJP PPx
4. Paroxysmal atrial fibrillation
- continue metoprolol and eliquis
5. Rheumatoid arthritis
On prednisone and CellCept at home
Pain meds ordered, add laxatives
6. Type 2 diabetes
Carb controlled diet, sliding scale insulin, hemoglobin A1c 7.6
7. AAA status post repair 04/21/2024
8. Hypothyroidism
Continue Synthroid
9. Depression
Patient reports that he was joking with the nurse on 08/16 about asking for a suicide pill
He is not suicidal, has no plans to harm himself, discontinue 1-1
Continue sertraline
10. Hyperlipidemia
Continue statin
11. Severe hearing loss
DVT prophylaxis�Eliquis
DNR confirmed by son/Law on phone 08/17
Updated son on phone 08/17
Total time spent to see the patient on the floor, examine the patient, review data and lab results, discuss treatment plan with patient, nursing staff around 50 minutes.
Physical Exam
General: No acute distress
HEENT: Normocephalic, Atraumatic, EOMI, MMM
Severe hearing loss noted
Respiratory: Bibasilar crackles, wheezing improved
Cardiac: Normal S1/S2, Regular Rate and Rhythm
GI: Soft, Nontender, Nondistended, Normal Bowel Sounds
Extremities: No Clubbing, Cyanosis, or Edema
Neuro: Nonfocal/Grossly Intact
Anticipated Discharge: Within 24 hours
Subjective/Interval History
-
Date of Service: August 18, 2024
feeling better
has been up and walking around
Objective Data
-
Labs:
Laboratory Results
08/18/24
07:30
WBC 6.8
Hgb 8.4 L
Hct 26.9 L
Plt Count 140
Sodium 136
Potassium 4.2
Chloride 107
Carbon Dioxide 24
BUN 26 H
Creatinine 1.2
Glucose 103 H
Calcium 7.9 L
Vital Signs:
Vital Signs
Temp Pulse Resp BP Pulse Ox
98.2 F 55 18 115/51 98
08/18/24 08:03 08/18/24 08:03 08/18/24 08:03 08/18/24 08:03 08/18/24 08:03
I&O
08/17/24 08/18/24 08/19/24
06:59 06:59 06:59
Intake Total 360 / 360 1392.6 / 1392.6
Output Total 350 / 350
Balance 1392.6 / 1392.6
Review of Systems
-
History Source: Patient
All other systems: Reviewed and negative
Physical Exam
-
General: No Apparent Distress
HEENT: Normocephalic
Respiratory: Negative Wheezes
Cardiac: Regular Rhythm
GI: Soft, Nontender and Nondistended
Skin: Warm
Neuro: Awake, Alert, Oriented and AO x 3
Psych: Calm
Data Reviewed
-
Diagnostic Radiology: Report Reviewed by me
Labs: Labs Reviewed by me
[2024-08-18] MEDS: BACTRIM DS 800 MG/160 MG 1 TABLET PO (10:21)
[2024-08-18] MEDS: TESSALON PERLES 100 MG PO (11:31)
[2024-08-18 13:06] LABS: Glucose - Point of Care 177 mg/dl (70-99)
[2024-08-18] MEDS: NOVOLOG FLEXPEN-MODERATE RESISTANCE 1 UNITS SC ×2 (13:20→16:39)
--- NOTE | 2024-08-18 13:51 | CM ---
Received consult for VN. Met with patient who denied wanting them and stated that he does have access to nurses at his community.
Plan: Case management will continue to follow and assist with discharge planning. Home when stable.
[2024-08-18] MEDS: LASIX 40 MG IV (14:24)
[2024-08-18 16:37] LABS: Glucose - Point of Care 179 mg/dl (70-99)
[2024-08-18] MEDS: CRESTOR 20 MG PO (16:39)
[2024-08-18] MEDS: ZOLOFT 25 MG PO (16:39)
[2024-08-18] MEDS: SENOKOT 8.6 MG PO (16:39)
[2024-08-18 17:00] VITALS: BP 138/68
[2024-08-18] MEDS: AUGMENTIN 875 MG/125 MG 1 TABLET PO (19:54)
[2024-08-18 20:00] VITALS: BP 166/87
[2024-08-18 21:06] LABS: Glucose - Point of Care 235 mg/dl (70-99)
[2024-08-18] MEDS: ROXICODONE 5 MG PO (21:52)
[2024-08-18 23:43] VITALS: BP 155/78
[2024-08-19 06:00] VITALS: BMI 29.2
[2024-08-19 07:22] LABS: Blood Urea Nitrogen 27 mg/dl (9-20); Calcium 8.3 mg/dl (8.4-10.2); Carbon Dioxide 27 mmol/L (22-30); Chloride 104 mmol/L (98-107); Estimated Creatinine Clearance 37 ml/min; Glucose 132 mg/dl (70-99); Magnesium 2.5 mg/dl (1.6-2.3); Sodium 137 mmol/L (135-145); eGFR 44.78
[2024-08-19 07:51] LABS: Glucose - Point of Care 131 mg/dl (70-99)
[2024-08-19 08:11] VITALS: BP 162/72
--- NOTE | 2024-08-19 09:17 | W.PN.HOSP.TC ---
Addendum entered and electronically signed by Kim Crum MD 08/20/24 07:32:
creatinine up to 1.5 but more likely Bactrim effect than NIKO; prior lab values have been similar - repeat labs in one week
Original Note:
Today's Communication/Plan
-
OK for DC after home O2 testing
Assessment / Plan
Assessment / Plan
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
CAD, proximal atrial fibrillation presenting to the emergency department with approximately 4 days of productive cough admitted for treatment of CAP and hypoxic resp insufficiency .
A/P:
1. Community-acquired pneumonia
Acute hypoxic respiratory insufficiency
- RLL infilftrate, cough, SOB. No fever or leukocytosis but immunocompromised.
- Flu/covid neg, legionella and strep negative; sputum culture without growth
-day 5 abx - s/p Azithromycin course and Cefepime - transitioned to Augmentin on 08/18 - would DC to continue 2.5 more days (7 days total)
- Increased prednisone to 40mg daily given persistent end expiratory wheeze (on prednisone 20 mg daily at home) - continue with taper back to 20, decreasing by 10mg every 5 days
- NEBS prn wheezes. Canceled ID consult
- repeat home O2 testing prior to DC
- home PT ordered - patient refused
2. 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
- patient and son state Lasix was resumed - OK to resume tomorrow (hold today post IV dose with small creatinine bump this morning)
3. ILD - With focal infiltrate and productive cough, unlikely ILD flair
- On prednisone and CellCept at home
- resume Bactrim for PJP PPx
4. Paroxysmal atrial fibrillation
- continue metoprolol and eliquis
5. Rheumatoid arthritis
On prednisone and CellCept at home
Pain meds ordered, add laxatives
6. Type 2 diabetes
Carb controlled diet, sliding scale insulin, hemoglobin A1c 7.6
7. AAA status post repair 04/21/2024
8. Hypothyroidism
Continue Synthroid
9. Depression
Patient reports that he was joking with the nurse on 08/16 about asking for a suicide pill
He is not suicidal, has no plans to harm himself, discontinue 1-1
Continue sertraline
10. Hyperlipidemia
Continue statin
11. Severe hearing loss
DVT prophylaxis�Eliquis
DNR confirmed by son/Law on phone 08/17
Updated son on phone 08/17
Total time spent to see the patient on the floor, examine the patient, review data and lab results, discuss treatment plan with patient, nursing staff around 50 minutes.
Physical Exam
General: No acute distress
HEENT: Normocephalic, Atraumatic, EOMI, MMM
Severe hearing loss noted
Respiratory: Bibasilar crackles, wheezing improved
Cardiac: Normal S1/S2, Regular Rate and Rhythm
GI: Soft, Nontender, Nondistended, Normal Bowel Sounds
Extremities: No Clubbing, Cyanosis, or Edema
Neuro: Nonfocal/Grossly Intact
Anticipated Discharge: Today
Subjective/Interval History
-
Date of Service: August 19, 2024
feeling better
wants to leave
urinated a lot yesterday
Objective Data
-
Labs:
Laboratory Results
08/19/24
06:22
Sodium 137
Potassium 4.0
Chloride 104
Carbon Dioxide 27
BUN 27 H
Creatinine 1.5 H
Glucose 132 H
Calcium 8.3 L
Vital Signs:
Vital Signs
Temp Pulse Resp BP Pulse Ox
97.9 F 54 16 162/72 99
08/19/24 08:11 08/19/24 08:11 08/19/24 08:11 08/19/24 08:11 08/19/24 08:11
I&O
08/18/24 08/19/24 08/20/24
06:59 06:59 06:59
Intake Total 1392.6 / 1392.6 480 / 480
Balance 1392.6 / 1392.6 480 / 480
Review of Systems
-
History Source: Patient
All other systems: Reviewed and negative
Physical Exam
-
General: No Apparent Distress
HEENT: Normocephalic
Respiratory: Negative Wheezes
Cardiac: Regular Rhythm
GI: Soft, Nontender and Nondistended
Skin: Warm
Neuro: Awake, Alert, Oriented and AO x 3
Psych: Calm
Data Reviewed
-
Diagnostic Radiology: Report Reviewed by me
Labs: Labs Reviewed by me
--- NOTE | 2024-08-19 09:50 | W.DS.TRANS ---
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
-
Discharge Instructions:
Discharge Diagnosis/Procedures community acquired pneumonia
Diet Low Sodium
Activity As tolerated
Driving Restrictions As prior to admission
Bathing Restrictions None
Blood Work BMP on Sunday08/25/24
Specialty Instructions Weigh Daily
Instructions:
Stand-Alone Forms:
Changes to Home Medications: Yes
Discharge Medications:
DC Medications w/original date entered in [employer]
furosemide 40 mg tablet 40 mg PO DAILY Fluid Retention/Swelling 03/03/24
mycophenolate mofetil 500 mg tablet 1,000 mg PO BID interstitial lung disease 03/03/24
prednisone 20 mg tablet 20 mg PO DAILY Anti-Inflammatory 03/03/24
rosuvastatin 20 mg tablet 20 mg PO QPM High Cholesterol 03/03/24
sennosides 8.6 mg tablet (senna) 8.6 mg PO QPM Constipation 03/03/24
sertraline 25 mg tablet 25 mg PO QPM Depression 03/03/24
sulfamethoxazole 800 mg-trimethoprim 160 mg tablet 1 tab PO MOWEFR Infection prophylaxis 03/03/24
glucosamine 750 [id number] no1 644 mg-C 30 mg-nissa 1 mg tablet (Osteo Bi-Flex Triple Strength) 1 tab PO BID Supplement 04/10/24
apixaban 5 mg tablet (Eliquis) 5 mg PO BID AFib 04/19/24
polyethylene glycol 3350 17 gram oral powder packet (HealthyLax) 17 g PO DAILY #30 ea 04/29/24
gabapentin 300 mg capsule 300 mg PO BID Pain 06/08/24
miconazole nitrate 2 % topical cream 1 applic topical BID groin rash 06/08/24
nitroglycerin 0.4 mg sublingual tablet (Nitrostat) 0.4 mg sublingual [id number] PRN chest pain 06/08/24
metoprolol succinate 50 mg tablet,extended release 24 hr 50 mg PO BID #60 tabs 06/12/24
acetaminophen 325 mg tablet 650 mg PO Q4HPRN PRN mild pain 08/12/24
guaifenesin 600 mg tablet, extended release 12 hr 600 mg PO Q12H Cough 08/12/24
amoxicillin 875 mg-potassium clavulanate 125 mg tablet 1 tab PO Q12 #6 tabs 08/19/24
benzonatate 100 mg capsule 100 mg PO TIDPRN PRN cough #30 caps 08/19/24
famotidine 20 mg tablet (Pepcid) 20 mg PO HS #14 tabs 08/19/24
guaifenesin 600 mg tablet, extended release 12 hr (Mucinex) 600 mg PO BID #28 tabs 08/19/24
lidocaine 4 % topical patch 1 patch topical DAILY #10 ea 08/19/24
prednisone 10 mg tablet 10 mg PO DAILY #20 tabs 08/19/24
Home Medication Changes
You have 3 more days of antibiotics to complete a 7 day course.
You are prescribed Mucinex and Tessalon Pearles to help with cough.
Prednisone: Take 1 more day of 40mg (on 08/20) then 5 days of 30mg (08/21-08/25) then resume 20mg daily on 08/26/24.
You are prescribed 14 days of Pepcid to help protect GI system when taking higher dose steroids (and Eliquis)
You may resume Lasix tomorrow. Repeat labs will be obtained on Sunday08/25/24.
Follow up with your Aircraft Instrument Mechanic and Shuttle Bus Driver as planned.
Pending Results: No
[2024-08-19] MEDS: NOVOLOG FLEXPEN-MODERATE RESISTANCE SC ×2 (10:26→10:59)
[2024-08-19] MEDS: NEURONTIN 300 MG PO (10:37)
[2024-08-19] MEDS: BACITRACIN OINTMENT 1 APPLIC TOPICAL (10:37)
[2024-08-19] MEDS: DELTASONE 40 MG PO (10:37)
[2024-08-19] MEDS: MIRALAX 17 GRAMS PO (10:37)
[2024-08-19] MEDS: SENOKOT-S 2 TABLET PO (10:38)
[2024-08-19] MEDS: ZITHROMAX 500 MG PO (10:38)
[2024-08-19] MEDS: ELIQUIS 5 MG PO (10:38)
[2024-08-19] MEDS: MUCINEX 600 MG PO (10:41)
[2024-08-19] MEDS: LIDOCAINE 4% PATCH 1 PATCH TOPICAL (10:42)
[2024-08-19] MEDS: AUGMENTIN 875 MG/125 MG 1 TABLET PO (10:43)
[2024-08-19] MEDS: CELLCEPT 1000 MG PO (10:43)
[2024-08-19] MEDS: TOPROL XL 50 MG PO (10:44)
[2024-08-19 10:52] VITALS: BP 168/77
[2024-08-19 10:59] LABS: Glucose - Point of Care 107 mg/dl (70-99)
--- NOTE | 2024-08-19 11:44 | PN.CDI ---
CDI
- -
CDI:
Physician Documentation Request
Admit Date: 08/15/24 23:38
Dear Doctor Skyla,
Patient admitted for management of pneumonia
Most recent creatinine:
Laboratory Tests
08/17/24 08/18/24 08/19/24
06:42 07:30 06:22
Creatinine 1.2 1.2 1.5 H
Could you please provide a diagnosis that supports the above lab abnormalities and additional evaluation/ monitoring:
NIKO
Abnormal lab value clinically insignificant
Other
Criteria for NIKO*
1 Increase in serum creatinine by > or = to 0.3 mg/dL (> or = to 26.5 micromol/L) within 48 hours, OR
2 Increase in serum creatinine to > or = to 1.5 times baseline, which is known or presumed to have occurred within 7 days, OR
3 Urine volume < 0.5 nL/kg/hour for six hours
Use of terms such as suspected, likely, concern for, or probable (associated with a specific diagnosis that is being evaluated, monitored, or treated as if it exists) are acceptable and can be coded in the inpatient setting, when documented at the
time of discharge.
Thank you,
Izabel Lopez RN, BSN
CDI Specialist
tiger text
Please use your independent medical judgment in providing your response.
--- NOTE | 2024-08-19 11:45 | CM ---
Addendum entered by Teresita Crockett 08/19/24 14:32:
sterile processing manager spoke with Daxa at [facility] [phone] and she is aware of discharge plan, patient is on steroid taper and ABX, scripts sent to [facility], patient's son to pickers material handlers prescriptions for patient and transport patient to [facility]
today. Son brought portable concentrator for patient
Addendum entered by Teresita Crockett 08/19/24 13:00:
[facility]
[phone]
[phone]
Original Note:
Patient was admitted from [facility], message left for Daxa at [facility] to review discharge plan, patient has home oxygen at [facility] and is current with [facility] briefcase sewer will reach out and send
referral to [facility].
Plan: Patient to return to [facility] today, son to transport.
--- NOTE | 2024-08-19 14:03 | PTCARENOTE ---
Attempted to call nursing at [facility] to provide report/update on patient. Facility nursing did not answer pphone, voicemail left by RN to call back [facility] for report/update. Pt is leaving with son in car.
--- NOTE | 2024-08-19 14:55 | W.DCSUMMARY ---
Discharge Summary
Discharge Data
Date of Admission: 08/15/24
Date of Discharge: 08/19/24
-
Pending Results: No
Hospital Course
Discharging Physician : Dr. Kim Crum
Disposition : Home with Home Care
Primary care physician : Dr. Jaylin Holguin
Principal Discharge diagnosis : Community Acquired Pneumonia
Chronic Discharge diagnosis :
Mr. Spencer Enriquez is a 89-year-old male with past medical history significant for interstitial lung disease on chronic prednisone and CellCept, CHF with both diastolic and systolic dysfunction, abdominal aortic aneurysm status post recent repair
rheumatoid arthritis, CAD, proximal atrial fibrillation presenting to the emergency department with approximately 4 days of productive cough. Patient was full seen in the emergency department about 3 days ago with cough. At the time he had
negative x-ray, negative COVID and flu test. He was sent home on inhalers.
In the emergency department today he was afebrile, blood blood pressure was 135/70 with pulse rate of 80. He was satting at 97% on 2 L. ECG showed normal sinus rhythm at a rate of [address] or T wave changes. Chest x-ray shows a
right lower lobe infiltrate consistent with pneumonia.
He was admitted to medicine and started on treatment for pneumonia with Cefepime and Azithromycin. His HEAD IRRIGATOR Prednisone for ILD was increased from 20mg daily to 40mg daily. Patient's symptoms improved on this regimen. Sputum culture negative and he
was transitioned to Augmentin with continued improvement in symptoms. He is discharged with 3 more days of antibiotics to complete a 7 day course. He is told to complete 5 days of Prednisone 40mg then decreased to 30mg x 5 days then resume his
20mg daily.
Patient's Lasix was initially held, he received one dose of IV lasix with good response. Creatinine 1.5 on day of discharge which is near his baseline. He is told to resume his oral Lasix tomorrow and will get close follow up labs next week.
Given patient is on higher dose steroids with HEAD IRRIGATOR Eliquis he is prescribed 2 weeks of Pepcid for GI PPx.
Patient requires 2L O2 with ambulation.
Time spent on discharge was 40 minutes.
Hospital Course :
Important imaging findings :
Procedure findings :
Discharge Plan
-
Patient Disposition: Home (Routine Discharge)
Discharge Diagnosis/Procedures: community acquired pneumonia
Diet: Low Sodium
Activity: As tolerated
Driving Restrictions: As prior to admission
Bathing Restrictions: None
Blood Work: BMP on Sunday08/25/24
Specialty Instructions: Weigh Daily- Call MD for wt gain/loss 3 lbs overnight/5 lbs in 1 week
Activity Restrictions/Additional Instructions:
Please use 2L O2 when ambulating.
Referrals:
Jaylin Holguin MD [Family Provider] - in less than 1 week
Additional Discharge Medication Instructions: You have 3 more days of antibiotics to complete a 7 day course.
You are prescribed Mucinex and Tessalon Pearles to help with cough.
Prednisone: Take 1 more day of 40mg (on 08/20) then 5 days of 30mg (08/21-08/25) then resume 20mg daily on 08/26/24.
You are prescribed 14 days of Pepcid to help protect GI system when taking higher dose steroids (and Eliquis)
You may resume Lasix tomorrow. Repeat labs will be obtained on Sunday08/25/24.
Follow up with your Senior Solutions Workflow Consultant and Director Of Capital Giving as planned.
Prescriptions:
New
amoxicillin-pot clavulanate 875-125 mg Tablet
1 tab PO Q12 Qty: 6 0RF
lidocaine 4 % Adhesive Patch,Medicated
1 patch topical DAILY Qty: 10 0RF
benzonatate 100 mg Capsule
100 mg PO TIDPRN PRN (Reason: cough) Qty: 30 0RF
guaifenesin [Mucinex] 600 mg tablet extended release 12hr
600 mg PO BID Qty: 28 0RF
prednisone 10 mg tablet
10 mg PO DAILY Qty: 20 0RF
Rx Instructions:
Take 40mg on 08/20; 30mg (3 tabs) 08/21-08/25 then resume 20mg daily on 08/26
famotidine [Pepcid] 20 mg tablet
20 mg PO HS Qty: 14 0RF
Continued
furosemide 40 mg Tablet
40 mg PO DAILY
sennosides [senna] 8.6 mg Tablet
8.6 mg PO QPM
sulfamethoxazole-trimethoprim 800-160 mg Tablet
1 tab PO MOWEFR
mycophenolate mofetil 500 mg Tablet
1,000 mg PO BID
sertraline 25 mg Tablet
25 mg PO QPM
rosuvastatin 20 mg Tablet
20 mg PO QPM
Osteo Bi-Flex Triple Strength 750 mg-644 mg- 30 mg-1 mg Tablet
1 tab PO BID
Eliquis 5 mg tablet
5 mg PO BID
polyethylene glycol 3350 [HealthyLax] 17 gram Powder In Packet
17 g PO DAILY Qty: 30 0RF
miconazole nitrate 2 % Cream
1 applic TOPICAL BID
gabapentin 300 mg Capsule
300 mg PO BID
nitroglycerin [Nitrostat] 0.4 mg Tablet, Sublingual
0.4 mg SUBLINGUAL [id number] PRN (Reason: chest pain)
metoprolol succinate 50 mg Tablet Extended Release 24 Hr
50 mg PO BID Qty: 60 0RF
acetaminophen 325 mg tablet
650 mg PO Q4HPRN PRN (Reason: mild pain)
guaifenesin 600 mg tablet extended release 12hr
600 mg PO Q12H
Held
prednisone 20 mg Tablet
20 mg PO DAILY
Hold Instructions: Resume on 08/26/24. RESUME 20MG AFTER TAPER
Discharge Orders:
Discharge Patient (As Directed); Ordered 08/19/24
Ordered By: Kim Crum
Discharge Date and Time
Discharge Date/Time: 08/19/24 14:31
Print Language: LITHUANIAN
== END 2024-08-19 14:31 | disposition home or self-care (01) | DRG 194 ==
LOC: 3 WEST ACU 23:38
PROVIDERS: Family Medicine; ADMITTING PHYSICIAN Internal Medicine; ATTENDING PHYSICIAN Student in an Organized Health Care Education/Training Program; EMERGENCY PHYSICIAN Emergency Medicine; FAMILY PHYSICIAN Internal Medicine
DX: J18.9 Pneumonia, unspecified organism (principal); D84.9 Immunodeficiency, unspecified; J84.9 Interstitial pulmonary disease, unspecified; I50.42 Chronic combined systolic (congestive) and diastolic (congestive) heart failure; I48.0 Paroxysmal atrial fibrillation; I25.10 Atherosclerotic heart disease of native coronary artery without angina pectoris; I11.0 Hypertensive heart disease with heart failure; K21.9 Gastro-esophageal reflux disease without esophagitis; E11.9 Type 2 diabetes mellitus without complications; M06.9 Rheumatoid arthritis, unspecified; E78.00 Pure hypercholesterolemia, unspecified; R09.02 Hypoxemia; R06.89 Other abnormalities of breathing; Z11.52 Encounter for screening for COVID-19; Z86.79 Personal history of other diseases of the circulatory system; Z96.651 Presence of right artificial knee joint; Z87.891 Personal history of nicotine dependence; Z79.84 Long term (current) use of oral hypoglycemic drugs; Z79.52 Long term (current) use of systemic steroids; Z79.01 Long term (current) use of anticoagulants; Z88.5 Allergy status to narcotic agent
CPT/HCPCS: 51798; 71046; 80048; 80053; 82962; 83036; 83735; 83880; 85025; 85027; 87070; 87205; 87449; 87502; 87641; 87811; 87899; 93005; 94640; 94761; 96365; 96366; 96375; 97163; 99285

== ENCOUNTER → 2024-08-25 09:17 | Outpatient (REF) | payer MEDICARE, OTHER, SELFPAY ==
[2024-08-25 12:04] LABS: Blood Urea Nitrogen 25 mg/dl (9-20); Calcium 8.8 mg/dl (8.4-10.2); Carbon Dioxide 26 mmol/L (22-30); Chloride 98 mmol/L (98-107); Glucose 150 mg/dl (70-99); Potassium 3.8 mmol/L (3.5-5.1); Sodium 137 mmol/L (135-145); eGFR 48.65
== END ==
LOC: HWRAD 09:17
PROVIDERS: ATTENDING PHYSICIAN Student in an Organized Health Care Education/Training Program; FAMILY PHYSICIAN Family Medicine
DX: M19.049 Primary osteoarthritis, unspecified hand (principal); M19.019 Primary osteoarthritis, unspecified shoulder; J84.9 Interstitial pulmonary disease, unspecified; S32.030S Wedge compression fracture of third lumbar vertebra, sequela; Z79.52 Long term (current) use of systemic steroids; I50.30 Unspecified diastolic (congestive) heart failure
CPT/HCPCS: 36415; 73030; 73130; 77080; 77081; 80048

== ENCOUNTER → 2024-09-04 12:09 | Outpatient (REF) | payer MEDICARE, OTHER, SELFPAY ==
[2024-09-04 12:56] LABS: Blood Urea Nitrogen 31 mg/dl (9-20); Calcium 8.9 mg/dl (8.4-10.2); Carbon Dioxide 29 mmol/L (22-30); Chloride 102 mmol/L (98-107); Glucose 134 mg/dl (70-99); Potassium 3.9 mmol/L (3.5-5.1); Sodium 138 mmol/L (135-145); eGFR 53.17
== END ==
LOC: OLABMERCHI 12:09
PROVIDERS: ATTENDING PHYSICIAN Hospitalist
DX: J18.9 Pneumonia, unspecified organism (principal)
CPT/HCPCS: 36415; 80048

== ENCOUNTER 2024-09-21 09:44 | Emergency (ER) | payer MEDICARE, OTHER, SELFPAY ==
[2024-09-21 10:01] VITALS: BP 160/74
[2024-09-21 10:15] LABS: % Basophils 0.1 % (0-2); % Eosinophils 0.3 % (0-6); % Immature Granulocytes 0.7 % (0-0.5); % Lymphocytes 7.3 % (20.5-51.1); % Monocytes 6.2 % (1.7-9.3); % Neutrophils 85.4 % (42.2-75.2); Absolute Immature Granulocytes 0.1 10^3/uL (0-0.05); Absolute Lymphocytes 0.8 10^3/uL (1.2-3.4); Absolute Monocytes 0.7 10^3/uL (0.1-0.6); Absolute Neutrophils 8.9 10^3/uL (1.4-6.5); Hematocrit 32.9 % (39.0-52.0); Hemoglobin 10.1 g/dL (13.0-18.0); Mean Corp Hgb Conc. 30.7 g/dL (33.0-37.0); Mean Corpuscular Hgb 30.4 pg (27.0-31.0); Mean Corpuscular Volume 99.1 fL (80.0-94.0); Mean Platelet Volume 9.5 fL (7.4-10.4); Nucleated Red Blood Cells % 0 % (-); Platelet Count 201 10^3/uL (130-400); Red Blood Cell Count 3.32 10^6/uL (4.70-6.10); Red Cell Dist. Width 16.5 % (11.5-14.5); White Blood Cell Count 10.4 10^3/uL (4.8-10.8)
[2024-09-21 10:28] LABS: ALT (SGPT) 19 U/L (0-50); AST (SGOT) 25 U/L (17-59); Alkaline Phosphatase 55 U/L (38-126); Blood Urea Nitrogen 23 mg/dl (9-20); Calcium 8.8 mg/dl (8.4-10.2); Carbon Dioxide 26 mmol/L (22-30); Chloride 103 mmol/L (98-107); Glucose 187 mg/dl (70-99); Potassium 3.9 mmol/L (3.5-5.1); Sodium 139 mmol/L (135-145); Total Bilirubin 0.5 mg/dl (0.2-1.3); Total Protein 6.4 g/dl (6.3-8.2); eGFR > 60.00
[2024-09-21 10:30] VITALS: BMI 31.9
[2024-09-21 10:34] VITALS: BP 151/70
[2024-09-21 10:40] LABS: NT-proBNP 1460 pg/ml; Troponin I 0.034 ng/ml
--- NOTE | 2024-09-21 10:41 | ED.GENMED ---
History of Present Illness
General
Chief Complaint: Breathing Problem
Source: patient
Time Seen by Provider: 09/21/24 10:27
History of Present Illness
History of Present Illness:
89-year-old male presents to the emergency room complaining of shortness of breath. Patient began feeling short of breath last evening. Began rather suddenly. Symptoms are much worse with any exertion. Patient has a history of interstitial lung
disease. He has chronic steroid and CellCept use for this. Patient was most recently hospitalized about 1 month ago for pneumonia. He finished his course of antibiotics and was feeling better. Patient has a history of heart failure but feels his
weight has been stable. He has not noticed any increase in edema. He denies chest pain.
Past History
Past History
ED Past Medical History: CHF, HTN and Other (Interstitial lung disease)
ED Past Surgical History: Orthopedic (Right knee replacement, kyphoplasty) and Other (Left carotid endarterectomy, aortic aneurysm repair)
Social History
Tobacco: Non-smoker
Alcohol: None
Drug: None
Phy Exam
Physical Exam
Physical Exam:
General: Awake, Alert, Oriented X3. Mild increased work of breathing
Vitals: Tachypneic
Head: Atraumatic
Eyes: Pupils equal, EOMI
Throat: Airway intact, no exudates
Neck: Trachea midline
Lungs: Decreased breath sounds bilaterally, some x-ray wheezing or crackles
Heart: Regular rate, no murmurs
Abd: Soft, Nontender, No pulsatile mass
Neuro: Nonfocal
Skin: Warm, dry, no rash
Extremities: pulses equal b/l, no edema
Scores
Heart Failure Risk
Heart Failure Risk Score: Yes
History of Stroke or TIA: No
History of intubation for respiratory distress: No
Heart rate on ED arrival >/= 110: No
SaO2 <90% on arrival on room air: Yes
HR >/=110 during 3min walk test (or too ill to perform test): No
ECG has acute ischemic changes: No
Urea >/=12mmol/L (BUN 33.6mg/dL): No
Serum CO2>/=35mmol/L: No
Troponin I or T elevated to NM Level (0.4mg/dL): No
NT-proBNP >/=5,000ng/L (5,000pg/ml): No
HF Risk Score: 1
Admission Status: MEDIUM RISK 5.1% Consider observation or discharge to home with homecare & f/u visit to PCP/[facility], or SNF for treatment
Course
Orders/Labs/Results
Orders:
Orders
09/21/24 09:46
EKG [Electrocardiogram (*1)] Urgent
Reason for Study: Shortness of Breath
EKG- Treatment ONCE
09/21/24 10:05
CXR2 [CR Chest - 2 Views ] Urgent
Comment:
Reason For Exam: sob
09/21/24 10:09
Complete Blood Count/With Diff Urgent
Comprehensive Metabolic Panel Urgent
NT-proBNP Urgent
Troponin I Urgent
09/21/24 10:50
Furosemide [Lasix] 40 mg IV NOW STA
Abnormal Lab Results
09/21/24
10:09
RBC 3.32 L 10^6/uL
(4.70-6.10)
Hgb 10.1 L g/dL
(13.0-18.0)
Hct 32.9 L %
(39.0-52.0)
MCV 99.1 H fL
(80.0-94.0)
MCHC 30.7 L g/dL
(33.0-37.0)
RDW 16.5 H %
(11.5-14.5)
Abs Immat Gran (auto) 0.1 H 10^3/uL
(0-0.05)
Absolute Neuts (auto) 8.9 H 10^3/uL
(1.4-6.5)
Absolute Lymphs (auto) 0.8 L 10^3/uL
(1.2-3.4)
Absolute Monos (auto) 0.7 H 10^3/uL
(0.1-0.6)
Immature Gran % 0.7 H %
(0-0.5)
Neutrophils % 85.4 H %
(42.2-75.2)
Lymphocytes % 7.3 L %
(20.5-51.1)
BUN 23 H mg/dl
(9-20)
Glucose 187 H mg/dl
(70-99)
09/21/24 10:09
09/21/24 10:09
Vital Signs
Initial and Last Documented VS:
Initial Vital Signs
Temp Pulse Resp BP Pulse Ox
98.0 F 66 18 160/74 98
09/21/24 10:01 09/21/24 10:01 09/21/24 10:01 09/21/24 10:01 09/21/24 10:01
Last Documented Vital Signs
Temp Pulse Resp BP Pulse Ox
98.0 F 63 16 138/76 98
09/21/24 10:01 09/21/24 14:00 09/21/24 14:00 09/21/24 14:00 09/21/24 14:00
MDM/Problems Addressed
Differential Diagnosis Includes:
Exacerbation of interstitial lung disease, exacerbation of CHF, anemia, pneumonia
MDM/Problems Addressed:
Patient presents with increased shortness of breath. Hemodynamically stable. He is afebrile. He denies any significant cough. Chest x-ray shows what is likely remnants from his recent pneumonia. Patient's BNP is elevated. Patient treated with
IV Lasix. He did feel better after IV Lasix. He states he feels back to his baseline. Discussed admission but he would prefer to go home. Patient placed on the cardiology CHF hotline
*Radiology
Radiology exam reviewed: radiology read reviewed
*Pulse Oximetry
Patient hypoxic: no
*EKG
Interpreted by ED Provider?: Yes
Interpretation: normal
Comparison EKG: no changes
Heart Rate: 65
Rate: normal
Rhythm: sinus
[place]: normal axis
Interval: normal interval
QRS Pattern: normal QRS
Ischemia: no ischemia
*[employer] Interpretation
Rate: normal
Interpretation: normal
Heart Rate: 65
Rhythm: sinus
*Critical Care Note
Total Time (30-74mins, 75-104mins- exclusive of procedures): Not Applicable
ED Attending Note
-
Portions of this chart may have been created with voice recognition software.� Occasional wrong word or��sound alike� substitutions may have occurred due to the inherent limitations of voice recognition software.
Discharge Plan
Departure
Patient Disposition: Home (Routine Discharge)
Date of Disposition: 09/21/24
Time of Disposition: 14:31
Patient with high blood pressure during this ER visit?: No
Condition: Good
Discharge Problem:
CHF (congestive heart failure), Interstitial lung disease
Instructions: *CBC Heart Failure Instructions, BLOOD PRESSURE
Prescriptions:
No Action
furosemide 40 mg Tablet
40 mg PO DAILY
sennosides [senna] 8.6 mg Tablet
8.6 mg PO QPM
prednisone 20 mg Tablet
20 mg PO DAILY
sulfamethoxazole-trimethoprim 800-160 mg Tablet
1 tab PO MOWEFR
mycophenolate mofetil 500 mg Tablet
1,000 mg PO BID
sertraline 25 mg Tablet
25 mg PO QPM
rosuvastatin 20 mg Tablet
20 mg PO QPM
Osteo Bi-Flex Triple Strength 750 mg-644 mg- 30 mg-1 mg Tablet
1 tab PO BID
Eliquis 5 mg tablet
5 mg PO BID
polyethylene glycol 3350 [HealthyLax] 17 gram Powder In Packet
17 g PO DAILY Qty: 30 0RF
miconazole nitrate 2 % Cream
1 applic TOPICAL BID
gabapentin 300 mg Capsule
300 mg PO BID
nitroglycerin [Nitrostat] 0.4 mg Tablet, Sublingual
0.4 mg SUBLINGUAL [id number] PRN (Reason: chest pain)
metoprolol succinate 50 mg Tablet Extended Release 24 Hr
50 mg PO BID Qty: 60 0RF
acetaminophen 325 mg tablet
650 mg PO Q4HPRN PRN (Reason: mild pain)
guaifenesin 600 mg tablet extended release 12hr
600 mg PO Q12H
amoxicillin-pot clavulanate 875-125 mg Tablet
1 tab PO Q12 Qty: 6 0RF
lidocaine 4 % Adhesive Patch,Medicated
1 patch topical DAILY Qty: 10 0RF
benzonatate 100 mg Capsule
100 mg PO TIDPRN PRN (Reason: cough) Qty: 30 0RF
guaifenesin [Mucinex] 600 mg tablet extended release 12hr
600 mg PO BID Qty: 28 0RF
prednisone 10 mg tablet
10 mg PO DAILY Qty: 20 0RF
Rx Instructions:
Take 40mg on 08/20; 30mg (3 tabs) 08/21-08/25 then resume 20mg daily on 08/26
famotidine [Pepcid] 20 mg tablet
20 mg PO HS Qty: 14 0RF
Referrals:
Jaylin Holguin MD [Family Provider] -
Activity Restrictions/Additional Instructions:
Take 60mg of lasix a day for the next 2 days. Return to the ER if you feel you are getting worse
Interventions
Interventions:
*Risk Screen - Suicide Last Done: 09/21/24 10:01
*General Assessment Last Done: 09/21/24 10:33
*Neglect/Abuse Screening Last Done: 09/21/24 10:01
ED- Fall Risk Assessment Last Done: 09/21/24 10:33
*ED COVID-19 Vaccine History Last Done: 09/21/24 10:33
*Nursing Disposition Last Done: 09/21/24 14:49
ED- Cardiac Assessment Last Done: 09/21/24 10:33
ED- Pulmonary Assessment Last Done: 09/21/24 10:33
Discharge Date and Time
Discharge Date/Time: 09/21/24 14:50
Print Language: UZBEK
[2024-09-21 11:00] VITALS: BP 142/72
[2024-09-21] MEDS: LASIX 40 MG IV (11:02)
[2024-09-21 12:00] VITALS: BP 145/78
[2024-09-21 13:00] VITALS: BP 137/71
[2024-09-21 14:00] VITALS: BP 138/76
== END 2024-09-21 14:50 | disposition home or self-care (01) ==
LOC: EMR 09:44
PROVIDERS: Emergency Medicine; EMERGENCY PHYSICIAN Emergency Medicine; FAMILY PHYSICIAN Internal Medicine
DX: R06.02 Shortness of breath (principal); I11.0 Hypertensive heart disease with heart failure; I50.9 Heart failure, unspecified; J84.9 Interstitial pulmonary disease, unspecified; Z87.01 Personal history of pneumonia (recurrent); Z96.651 Presence of right artificial knee joint; Z79.52 Long term (current) use of systemic steroids; Z79.01 Long term (current) use of anticoagulants; Z88.5 Allergy status to narcotic agent
CPT/HCPCS: 99285; 96374; 71046; 80053; 83880; 84484; 85025; 93005

== ENCOUNTER → 2024-09-25 09:17 | Outpatient (REF) | payer MEDICARE, OTHER, SELFPAY ==
[2024-09-25 13:02] LABS: Erythrocyte Sed Rate 29 mm/hour (0-20)
[2024-09-25 14:18] LABS: Protein/creatinine Ratio 0.6; Urine Protein 20 mg/dl
[2024-09-28 08:25] LABS: Myeloperoxidase Antibody 0 AU/mL (0-19); Serine Protease-3, IgG 0 AU/mL (0-19)
[2024-09-28 08:48] LABS: Scleroderma Antibody (Scl-70) 2 AU/mL (0-40)
== END ==
LOC: HWRAD 09:17
PROVIDERS: ATTENDING PHYSICIAN Student in an Organized Health Care Education/Training Program; FAMILY PHYSICIAN Internal Medicine; REFERRING PHYSICIAN Internal Medicine Critical Care Medicine
DX: J18.9 Pneumonia, unspecified organism (principal); E11.69 Type 2 diabetes mellitus with other specified complication; J84.9 Interstitial pulmonary disease, unspecified; M19.019 Primary osteoarthritis, unspecified shoulder; M19.049 Primary osteoarthritis, unspecified hand; N17.9 Acute kidney failure, unspecified
CPT/HCPCS: 36415; 71046; 82570; 83516; 84156; 85652; 86140; 86235

== ENCOUNTER 2024-10-30 10:03 | Emergency (ER) | payer MEDICARE, OTHER, SELFPAY ==
[2024-10-30 10:13] VITALS: BP 112/56
--- NOTE | 2024-10-30 10:32 | ED.GENMED ---
History of Present Illness
General
Chief Complaint: Weakness
Source: patient and family
Exam Limitations: none
Time Seen by Provider: 10/30/24 10:26
History of Present Illness
History of Present Illness:
See MDM
Past History
Past History
ED Past Medical History: CHF, HTN and Other (Interstitial lung disease)
ED Past Surgical History: Orthopedic (Right knee replacement, kyphoplasty) and Other (Left carotid endarterectomy, aortic aneurysm repair)
Social History
Tobacco: Non-smoker
Alcohol: None
Drug: None
Phy Exam
Physical Exam
Physical Exam:
See MDM
Course
Orders/Labs/Results
Orders:
Orders
10/30/24 10:04
Electrocardiogram (*1) Urgent
Reason for Study: Shortness of Breath
EKG- Treatment ONCE
10/30/24 10:31
CR Chest Portable - 1 View Urgent
Comment:
Reason For Exam: SOB
Reason Study Needs to be Portable: Patient Unstable
10/30/24 10:41
COVID-19 Antigen Urgent
Source: Nasal Swab
Complete Blood Count/With Diff Urgent
Influenza A+B Rapid Molecular Urgent
KIKA Source: Nasal Swab
Specimen Description:
10/30/24 12:00
Comprehensive Metabolic Panel Urgent
Troponin I Urgent
10/30/24 13:04
Furosemide [Lasix] 40 mg IV NOW STA
Abnormal Lab Results
10/30/24 10/30/24
10:41 12:00
WBC 11.4 H 10^3/uL
(4.8-10.8)
RBC 3.51 L 10^6/uL
(4.70-6.10)
Hgb 10.6 L g/dL
(13.0-18.0)
Hct 35.3 L %
(39.0-52.0)
MCV 100.6 H fL
(80.0-94.0)
MCHC 30.0 L g/dL
(33.0-37.0)
RDW 16.2 H %
(11.5-14.5)
Abs Immat Gran (auto) 0.1 H 10^3/uL
(0-0.05)
Absolute Neuts (auto) 9.5 H 10^3/uL
(1.4-6.5)
Absolute Lymphs (auto) 1.1 L 10^3/uL
(1.2-3.4)
Absolute Monos (auto) 0.7 H 10^3/uL
(0.1-0.6)
Neutrophils % 83.9 H %
(42.2-75.2)
Lymphocytes % 9.3 L %
(20.5-51.1)
BUN 27 H mg/dl
(9-20)
Creatinine 1.4 H mg/dL
(0.7-1.3)
Glucose 238 H mg/dl
(70-99)
10/30/24 10:41
10/30/24 12:00
Vital Signs
Initial and Last Documented VS:
Initial Vital Signs
Temp Pulse BP Pulse Ox
98.2 F 78 112/56 98
10/30/24 10:13 10/30/24 10:13 10/30/24 10:13 10/30/24 10:13
Last Documented Vital Signs
Temp Pulse BP Pulse Ox
98.2 F 78 112/56 96
10/30/24 10:13 10/30/24 10:13 10/30/24 10:13 10/30/24 10:31
MDM/Problems Addressed
Differential Diagnosis Includes:
HPI and MDM Narrative:
89-year-old male presenting with shortness of breath. This has been ongoing for the past 3 days. Patient and son at bedside believe this could be related to interstitial lung disease or potentially congestive heart failure. Son at bedside states
similar presentation in the past was found to be pulmonary edema where they doubled the Lasix. He states it helped at that time. Initially, patient states that nursing staff usually has a hard time pulse oximetry. However, we are able to get 98%
on room air
Given his history, will obtain chest x-ray and basic blood work. Will obtain COVID and flu
Physical exam
General: Well appearing and non-toxic
HEENT: protecting airway
Neck: appears supple
CV: No evidence of cyanosis. Regular rate and rhythm
Resp: No accessory muscle use. Shallow breath sounds noted to bases
Abd: Non-distended
Extremities: No deformities. No pitting edema
Neuro: alert
Psych: Normal affect
Skin: Intact
Problems Addressed including Acute and Chronic Conditions affecting care:
1. Shortness of breath
Acuity: acute
Prognosis: stable
Details: Given his history, will obtain chest x-ray and will obtain troponin and BNP
Updates
Chest x-ray is more likely related to interstitial lung disease rather than CHF. Since they are actively trying to wean down steroids, will avoid increasing daily steroids. However, patient states his lung capacity is at 40%. Given the concern
for mild CHF, will give dose of IV Lasix. He is not hypoxic and does want to go home. We discussed potentially doubling up Lasix tomorrow.
Differential Diagnosis (but not limited to): Pulmonary edema, interstitial lung disease, pneumonia, viral syndrome
Testing considered: D-dimer
Drug therapy (if applicable): OTC meds, please see d/c instruction regarding Rx drugs
Amount and/or Complexity of Data Reviewed
Clinical info obtained from: Patient
External data reviewed: N/A
Labs I independently reviewed (but not limited to): Troponin normal
Radiology: X-ray independently reviewed: Chest x-ray without pulmonary edema
Pulse Ox: not hypoxic
EKG independently reviewed: Sinus rhythm, leftward axis, no STEMI
Housekeeper Nanny: Sinus rhythm
Critical Care: N/A
Risk of Complication:
Social Determinants of health: Good social support
Discussed with other providers: N/A
Escalation of Care includes Admit/Obs: After being observed in the Emergency Department, pt stable for discharge.
Occasional wrong word or 'sound a like' substitutions may have occurred due to the inherent limitations of voice recognition software. Read the chart carefully and recognize, using context, where substitutions have occurred.
*Critical Care Note
Total Time (30-74mins, 75-104mins- exclusive of procedures): Not Applicable
ED Attending Note
-
Portions of this chart may have been created with voice recognition software.� Occasional wrong word or��sound alike� substitutions may have occurred due to the inherent limitations of voice recognition software.
Discharge Plan
Departure
Patient Disposition: Home (Routine Discharge)
Date of Disposition: 10/30/24
Time of Disposition: 13:10
Patient with high blood pressure during this ER visit?: No
Discharge Problem:
Interstitial lung disease
Prescriptions:
No Action
furosemide 40 mg Tablet
40 mg PO DAILY
sennosides [senna] 8.6 mg Tablet
8.6 mg PO QPM
prednisone 20 mg Tablet
20 mg PO DAILY
sulfamethoxazole-trimethoprim 800-160 mg Tablet
1 tab PO MOWEFR
mycophenolate mofetil 500 mg Tablet
1,000 mg PO BID
sertraline 25 mg Tablet
25 mg PO QPM
rosuvastatin 20 mg Tablet
20 mg PO QPM
Osteo Bi-Flex Triple Strength 750 mg-644 mg- 30 mg-1 mg Tablet
1 tab PO BID
Eliquis 5 mg tablet
5 mg PO BID
polyethylene glycol 3350 [HealthyLax] 17 gram Powder In Packet
17 g PO DAILY Qty: 30 0RF
miconazole nitrate 2 % Cream
1 applic TOPICAL BID
gabapentin 300 mg Capsule
300 mg PO BID
nitroglycerin [Nitrostat] 0.4 mg Tablet, Sublingual
0.4 mg SUBLINGUAL [id number] PRN (Reason: chest pain)
metoprolol succinate 50 mg Tablet Extended Release 24 Hr
50 mg PO BID Qty: 60 0RF
acetaminophen 325 mg tablet
650 mg PO Q4HPRN PRN (Reason: mild pain)
guaifenesin 600 mg tablet extended release 12hr
600 mg PO Q12H
amoxicillin-pot clavulanate 875-125 mg Tablet
1 tab PO Q12 Qty: 6 0RF
lidocaine 4 % Adhesive Patch,Medicated
1 patch topical DAILY Qty: 10 0RF
benzonatate 100 mg Capsule
100 mg PO TIDPRN PRN (Reason: cough) Qty: 30 0RF
guaifenesin [Mucinex] 600 mg tablet extended release 12hr
600 mg PO BID Qty: 28 0RF
prednisone 10 mg tablet
10 mg PO DAILY Qty: 20 0RF
Rx Instructions:
Take 40mg on 08/20; 30mg (3 tabs) 08/21-08/25 then resume 20mg daily on 08/26
famotidine [Pepcid] 20 mg tablet
20 mg PO HS Qty: 14 0RF
Referrals:
Jaylin Holguin MD [Family Provider] -
Activity Restrictions/Additional Instructions:
Please return for any worsening symptoms.
You may return at any time if you have further concerns.
Please follow up with your doctor at the first available appointment, preferably this week.
Please consider doubling her Lasix tomorrow if you think it is helping.
Thank you for choosing [facility].
Interventions
Interventions:
*Risk Screen - Suicide Last Done: 10/30/24 10:13
*Neglect/Abuse Screening Last Done: 10/30/24 10:13
Discharge Date and Time
Print Language: SCOTTISH
[2024-10-30 10:56] LABS: % Basophils 0.2 % (0-2); % Eosinophils 0.3 % (0-6); % Immature Granulocytes 0.5 % (0-0.5); % Lymphocytes 9.3 % (20.5-51.1); % Monocytes 5.8 % (1.7-9.3); % Neutrophils 83.9 % (42.2-75.2); Absolute Immature Granulocytes 0.1 10^3/uL (0-0.05); Absolute Lymphocytes 1.1 10^3/uL (1.2-3.4); Absolute Monocytes 0.7 10^3/uL (0.1-0.6); Absolute Neutrophils 9.5 10^3/uL (1.4-6.5); Hematocrit 35.3 % (39.0-52.0); Hemoglobin 10.6 g/dL (13.0-18.0); Mean Corpuscular Hgb 30.2 pg (27.0-31.0); Mean Corpuscular Volume 100.6 fL (80.0-94.0); Mean Platelet Volume 9.2 fL (7.4-10.4); Nucleated Red Blood Cells % 0 % (-); Platelet Count 143 10^3/uL (130-400); Red Blood Cell Count 3.51 10^6/uL (4.70-6.10); Red Cell Dist. Width 16.2 % (11.5-14.5); White Blood Cell Count 11.4 10^3/uL (4.8-10.8)
[2024-10-30 11:00] VITALS: BP 110/58
[2024-10-30 11:02] LABS: COVID-19 Antigen Negative (Negative)
[2024-10-30 12:02] VITALS: BP 111/55
[2024-10-30 12:28] LABS: ALT (SGPT) 21 U/L (0-50); AST (SGOT) 22 U/L (17-59); Albumin 4.1 g/dl (3.5-5.0); Alkaline Phosphatase 67 U/L (38-126); Blood Urea Nitrogen 27 mg/dl (9-20); Calcium 9.6 mg/dl (8.4-10.2); Carbon Dioxide 27 mmol/L (22-30); Chloride 98 mmol/L (98-107); Glucose 238 mg/dl (70-99); Potassium 4.1 mmol/L (3.5-5.1); Sodium 136 mmol/L (135-145); Total Protein 6.3 g/dl (6.3-8.2); eGFR 48.65
[2024-10-30 12:37] LABS: Troponin I 0.016 ng/ml
[2024-10-30 13:00] VITALS: BP 107/58
[2024-10-30] MEDS: LASIX 40 MG IV (13:41)
== END 2024-10-30 13:45 | disposition home or self-care (01) ==
LOC: EMR 10:03
PROVIDERS: EMERGENCY PHYSICIAN Student in an Organized Health Care Education/Training Program; FAMILY PHYSICIAN Internal Medicine
DX: J84.9 Interstitial pulmonary disease, unspecified (principal); I11.0 Hypertensive heart disease with heart failure; I50.9 Heart failure, unspecified; Z11.52 Encounter for screening for COVID-19
CPT/HCPCS: 96374; 99284; 71045; 80053; 84484; 85025; 87502; 87811; 93005

== ENCOUNTER 2024-11-03 09:40 | Observation (INO) | payer MEDICARE, OTHER, SELFPAY ==
[2024-11-03] VITALS (14 sets, daily range): BP systolic 89–150; BP diastolic 40–71; BMI 33.2; BMI 32.6
--- NOTE | 2024-11-03 02:36 | ED.GENMED ---
History of Present Illness
General
Chief Complaint: Weakness
Source: patient and [facility]
Time Seen by Provider: 11/03/24 02:22
History of Present Illness
History of Present Illness:
89-year-old male brought to the emergency room from [facility] where he has been experiencing nausea vomiting and diarrhea for the past couple days. Today he attempted to get out of bed to go to the bathroom and was too weak to stand. He slumped
to the floor. He denies striking his head or any injuries. Patient does not believe he has had a fever. Currently denies any abdominal pain. He states he has vomited too many times to count.
Past History
Past History
ED Past Medical History: CHF, HTN and Other (Interstitial lung disease)
ED Past Surgical History: Orthopedic (Right knee replacement, kyphoplasty) and Other (Left carotid endarterectomy, aortic aneurysm repair)
Social History
Tobacco: Non-smoker
Alcohol: None
Drug: None
Phy Exam
Physical Exam
Physical Exam:
General: Awake, Alert, Oriented X3. No acute distress.
Vitals: unremarkable
Head: Atraumatic
Eyes: Pupils equal, EOMI
Throat: Airway intact, no exudates dry mucosa
Neck: Trachea midline
Lungs: Clear and equal b/l
Heart: Regular rate, no murmurs
Abd: Soft, Nontender, No pulsatile mass
Neuro: Nonfocal
Skin: Warm, dry, no rash
Extremities: pulses equal b/l, no edema
Course
Orders/Labs/Results
Orders:
Orders
11/03/24 02:19
Complete Blood Count/With Diff Urgent
Comprehensive Metabolic Panel Urgent
UA [Urinalysis] Urgent
Date Specimen was Collected: 11/03/24
Time Specimen was Collected: 02:18
Urine Microscopic Urgent
Date Specimen was Collected: 11/03/24
Time Specimen was Collected: 02:18
11/03/24 02:36
0.9% Sodium Chloride 1000 ml [Nss] 1,000 ml IV BOLUS
Abnormal Lab Results
11/03/24
02:19
RBC 3.54 L 10^6/uL
(4.70-6.10)
Hgb 10.7 L g/dL
(13.0-18.0)
Hct 34.6 L %
(39.0-52.0)
MCV 97.7 H fL
(80.0-94.0)
MCHC 30.9 L g/dL
(33.0-37.0)
RDW 15.9 H %
(11.5-14.5)
Absolute Neuts (auto) 6.9 H 10^3/uL
(1.4-6.5)
Absolute Lymphs (auto) 0.9 L 10^3/uL
(1.2-3.4)
Absolute Monos (auto) 0.8 H 10^3/uL
(0.1-0.6)
Neutrophils % 79.5 H %
(42.2-75.2)
Lymphocytes % 10.5 L %
(20.5-51.1)
BUN 31 H mg/dl
(9-20)
Creatinine 1.5 H mg/dL
(0.7-1.3)
Glucose 152 H mg/dl
(70-99)
Total Protein 6.1 L g/dl
(6.3-8.2)
Urine Occult Blood 1+ A
(Negative)
Urine RBC 3-6 A /HPF
(0-2)
Urine Bacteria Few A
(Negative)
Urine Glucose 1+ A
(Negative)
Urine Albumin 2+ A
(Neg - Trace)
11/03/24 02:19
11/03/24 02:19
Vital Signs
Initial and Last Documented VS:
Initial Vital Signs
BP
131/63
11/03/24 02:02
Last Documented Vital Signs
Temp Pulse Resp BP Pulse Ox
99.4 F 84 20 145/69 97
11/03/24 02:07 11/03/24 06:30 11/03/24 06:30 11/03/24 06:00 11/03/24 06:30
ED Attending Note
-
Portions of this chart may have been created with voice recognition software.� Occasional wrong word or��sound alike� substitutions may have occurred due to the inherent limitations of voice recognition software.
Discharge Plan
Departure
Patient Disposition: Admit
Date of Disposition: 11/03/24
Time of Disposition: 05:50
Admit to: Med/Surg
Presentation/result/management discussed w/ accepting MD/DO: Hospitalist
Condition: Fair
Discharge Problem:
Nausea and vomiting, Diarrhea
Instructions: Viral gastroenteritis in adults
Prescriptions:
New
ondansetron 4 mg tablet,disintegrating
4 mg PO TID PRN (Reason: nausea and vomiting) Qty: 12 0RF
No Action
furosemide 40 mg Tablet
40 mg PO DAILY
sennosides [senna] 8.6 mg Tablet
8.6 mg PO QPM
prednisone 20 mg Tablet
20 mg PO DAILY
sulfamethoxazole-trimethoprim 800-160 mg Tablet
1 tab PO MOWEFR
mycophenolate mofetil 500 mg Tablet
1,000 mg PO BID
sertraline 25 mg Tablet
25 mg PO QPM
rosuvastatin 20 mg Tablet
20 mg PO QPM
Osteo Bi-Flex Triple Strength 750 mg-644 mg- 30 mg-1 mg Tablet
1 tab PO BID
Eliquis 5 mg tablet
5 mg PO BID
polyethylene glycol 3350 [HealthyLax] 17 gram Powder In Packet
17 g PO DAILY Qty: 30 0RF
miconazole nitrate 2 % Cream
1 applic TOPICAL BID
gabapentin 300 mg Capsule
300 mg PO BID
nitroglycerin [Nitrostat] 0.4 mg Tablet, Sublingual
0.4 mg SUBLINGUAL [id number] PRN (Reason: chest pain)
metoprolol succinate 50 mg Tablet Extended Release 24 Hr
50 mg PO BID Qty: 60 0RF
acetaminophen 325 mg tablet
650 mg PO Q4HPRN PRN (Reason: mild pain)
guaifenesin 600 mg tablet extended release 12hr
600 mg PO Q12H
amoxicillin-pot clavulanate 875-125 mg Tablet
1 tab PO Q12 Qty: 6 0RF
lidocaine 4 % Adhesive Patch,Medicated
1 patch topical DAILY Qty: 10 0RF
benzonatate 100 mg Capsule
100 mg PO TIDPRN PRN (Reason: cough) Qty: 30 0RF
guaifenesin [Mucinex] 600 mg tablet extended release 12hr
600 mg PO BID Qty: 28 0RF
prednisone 10 mg tablet
10 mg PO DAILY Qty: 20 0RF
Rx Instructions:
Take 40mg on 08/20; 30mg (3 tabs) 08/21-08/25 then resume 20mg daily on 08/26
famotidine [Pepcid] 20 mg tablet
20 mg PO HS Qty: 14 0RF
Referrals:
Jaylin Holguin MD [Family Provider] -
Interventions
Interventions:
*Risk Screen - Suicide Last Done: 11/03/24 02:07
*General Assessment Last Done: 11/03/24 02:07
*Neglect/Abuse Screening Last Done: 11/03/24 02:07
*ED- Fall Risk Assessment Last Done: 11/03/24 02:07
*ED COVID-19 Vaccine History Last Done: 11/03/24 02:07
ED- Cardiac Assessment Last Done: 11/03/24 02:01
ED- Neurological Assessment Last Done: 11/03/24 02:01
ED- Pulmonary Assessment Last Done: 11/03/24 02:01
Discharge Date and Time
Print Language: LATVIAN
[2024-11-03 02:40] LABS: Urine Albumin 2+ (Neg - Trace); Urine Bilirubin Negative (Negative); Urine Character Clear (Clear); Urine Color Yellow; Urine Glucose 1+ (Negative); Urine Ketone Negative (Negative); Urine Leukocyte Negative (Negative); Urine Nitrite Negative (Negative); Urine Occult Blood 1+ (Negative); Urine Urobilinogen Negative (Neg - 1+); Urine pH 6.5 (5.0-9.0)
[2024-11-03 02:46] LABS: % Basophils 0.1 % (0-2); % Eosinophils 0.3 % (0-6); % Immature Granulocytes 0.5 % (0-0.5); % Lymphocytes 10.5 % (20.5-51.1); % Monocytes 9.1 % (1.7-9.3); % Neutrophils 79.5 % (42.2-75.2); Absolute Lymphocytes 0.9 10^3/uL (1.2-3.4); Absolute Monocytes 0.8 10^3/uL (0.1-0.6); Absolute Neutrophils 6.9 10^3/uL (1.4-6.5); Hematocrit 34.6 % (39.0-52.0); Hemoglobin 10.7 g/dL (13.0-18.0); Mean Corp Hgb Conc. 30.9 g/dL (33.0-37.0); Mean Corpuscular Hgb 30.2 pg (27.0-31.0); Mean Corpuscular Volume 97.7 fL (80.0-94.0); Mean Platelet Volume 9.8 fL (7.4-10.4); Nucleated Red Blood Cells % 0 % (-); Platelet Count 157 10^3/uL (130-400); Red Blood Cell Count 3.54 10^6/uL (4.70-6.10); Red Cell Dist. Width 15.9 % (11.5-14.5); White Blood Cell Count 8.7 10^3/uL (4.8-10.8)
[2024-11-03] MEDS: NSS 1000 IV ×2 (02:46→15:58)
[2024-11-03 02:51] LABS: Urine Squamous Cell 0-2 /LPF (Few)
[2024-11-03 02:52] LABS: Urine Amorphous Seen; Urine Bacteria Few (Negative); Urine White Cell 0-2 /HPF (0-5)
[2024-11-03 02:53] LABS: ALT (SGPT) 19 U/L (0-50); AST (SGOT) 20 U/L (17-59); Albumin 3.8 g/dl (3.5-5.0); Alkaline Phosphatase 64 U/L (38-126); Blood Urea Nitrogen 31 mg/dl (9-20); Calcium 8.6 mg/dl (8.4-10.2); Carbon Dioxide 27 mmol/L (22-30); Chloride 99 mmol/L (98-107); Estimated Creatinine Clearance 42 ml/min; Glucose 152 mg/dl (70-99); Potassium 3.8 mmol/L (3.5-5.1); Sodium 137 mmol/L (135-145); Total Protein 6.1 g/dl (6.3-8.2); eGFR 44.78
[2024-11-03] MEDS: TYLENOL 650 MG PO ×3 (07:46→19:29)
--- NOTE | 2024-11-03 09:01 | HPS.HSE ---
Family Physician
-
Family Physician: Jaylin Holguin MD
Chief Complaint
-
Diarrhea, weakness
History of Present Illness
89-year-old male with a past medical history of interstitial lung disease on chronic prednisone and CellCept, CHF, abdominal aortic aneurysm status post recent repair, rheumatoid arthritis, CAD, and atrial fibrillation on eliquis presents with
nausea, vomiting, abdominal pain, and diarrhea. Patient states he has been having the symptoms for 3 days. He continues to have large-volume diarrhea. Denies bloody stools. Associated symptoms include left-sided abdominal cramping, nausea,
vomiting, and weakness. He denies chest pain, denies shortness of breath. No fever.
Medical History
Past Medical History
Past Medical History: Reports CHF, COPD, GERD, HTN, Hypercholesterolemia and NIDDM
Additional Past Medical History:
Interstitial lung disease
Rheumatoid arthritis
Hearing loss
Paroxysmal atrial fibrillation
Hypothyroidism
Past Surgical History: Reports Other (Infrarenal aortic abdominal aneurysm s/p repair)
Social History
Tobacco: Former Smoker
Alcohol: None
Drug: None
Personal:
Living: With Family
Employment: Retired
Family History
Family History: Not pertinent
Allergies / Home Medications
Allergies reflects when Allergies were last updated in [employer].
Home Medications with original date entered in [employer]
Allergy/Medication List:
Allergies
Allergy/AdvReac Type Severity Reaction Status Date / Time
codeine Allergy Vomiting Verified 10/30/24 10:16
Home Medications Table - record
�Medication �Instructions �Recorded �Confirmed
furosemide 40 mg tablet 40 mg PO DAILY Fluid 03/03/24 11/03/24
Retention/Swelling
mycophenolate mofetil 500 mg tablet 1,000 mg PO BID interstitial lung 03/03/24 11/03/24
disease
rosuvastatin 20 mg tablet 20 mg PO QPM High Cholesterol 03/03/24 11/03/24
sennosides 8.6 mg tablet (senna) 8.6 mg PO QPM Constipation 03/03/24 11/03/24
sertraline 25 mg tablet 50 mg PO QPM Depression 03/03/24 11/03/24
sulfamethoxazole 800 1 tab PO MOWEFR Infection 03/03/24 11/03/24
mg-trimethoprim 160 mg tablet prophylaxis
glucosamine 750 [id number] 1 tab PO DAILY Supplement 04/10/24 11/03/24
no1 644 mg-C 30 mg-nissa 1 mg
tablet (Osteo Bi-Flex Triple
Strength)
apixaban 5 mg tablet (Eliquis) 5 mg PO BID AFib 04/19/24 11/03/24
polyethylene glycol 3350 17 gram 17 g PO DAILY #30 ea 04/29/24 11/03/24
oral powder packet (HealthyLax)
gabapentin 300 mg capsule 300 mg PO BID Pain 06/08/24 11/03/24
nitroglycerin 0.4 mg sublingual 0.4 mg sublingual [id number] PRN 06/08/24 11/03/24
tablet (Nitrostat) chest pain
acetaminophen 325 mg tablet 650 mg PO Q4HPRN PRN mild pain 08/12/24 11/03/24
guaifenesin 600 mg tablet, 600 mg PO Q12H Cough 08/12/24 11/03/24
extended release 12 hr
benzonatate 100 mg capsule 100 mg PO TIDPRN PRN cough #30 caps 08/19/24 11/03/24
alogliptin 25 mg tablet 25 mg PO DAILY 11/03/24 11/03/24
docusate sodium 100 mg capsule 200 mg PO BID 11/03/24 11/03/24
(Colace)
levothyroxine 100 mcg tablet 100 mcg PO HS 11/03/24 11/03/24
(Synthroid)
lidocaine 4 % topical patch 1 patch topical DAILY rib area 11/03/24 11/03/24
lisinopril 5 mg tablet 5 mg PO DAILY 11/03/24 11/03/24
metoprolol succinate 50 mg 50 mg PO DAILY 11/03/24 11/03/24
tablet,extended release 24 hr
miconazole nitrate 2 % topical 1 applic topical BIDPRN PRN groin 11/03/24 11/03/24
cream (Antifungal (miconazole))
prednisone 10 mg tablet 15 mg PO DAILY 11/03/24 11/03/24
zinc oxide 12 % topical cream 1 applic topical BIDPRN PRN buttock 11/03/24 11/03/24
([place] Protect (zinc oxide))
Review of Systems
-
A 12 point ROS was completed and negative except as noted: Yes
Physical Exam
Vital Signs
Vital Signs
Temp Pulse Resp BP Pulse Ox
98.8 F 79 17 118/71 94
11/03/24 08:00 11/03/24 08:45 11/03/24 08:45 11/03/24 08:00 11/03/24 08:45
Physical Exam
General: No Apparent Distress and Obese
HEENT: NormoCephalic, Anicteric and Moist mucous membranes
Respiratory: Crackles
Cardiac: S1/S2 and Regular Rhythm
GI: Soft, Non Distended, Normal Bowel Sounds and Tender
Musculoskeletal: No Clubbing, No Cyanosis and No Edema
Skin: Warm and Dry
Neuro: Awake, Alert and Oriented
Laboratory Results
-
11/03/24 02:19
11/03/24 02:19
Laboratory Results
Total Bilirubin 1.0 mg/dl (0.2-1.3) 11/03/24 02:19
AST 20 U/L (17-59) 11/03/24 02:19
ALT 19 U/L (0-50) 11/03/24 02:19
Alkaline Phosphatase 64 U/L (38-126) 11/03/24 02:19
Impression/Plan
-
HPI: 89-year-old male with a past medical history of interstitial lung disease on chronic prednisone and CellCept, CHF, abdominal aortic aneurysm status post recent repair, rheumatoid arthritis, CAD, and atrial fibrillation on eliquis presents with
nausea, vomiting, abdominal pain, and diarrhea. Patient states he has been having the symptoms for 3 days. He continues to have large-volume diarrhea. Denies bloody stools. Associated symptoms include left-sided abdominal cramping, nausea,
vomiting, and weakness. He denies chest pain, denies shortness of breath. No fever.
#Acute norovirus gastroenteritis
Trial of full liquids
Hold home lasix, give gentle IV fluids, supportive care
#Acute kidney injury superimposed on stage III chronic kidney disease
Gentle IV fluids as above, hold Lasix/lisinopril
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
-Hold Lasix due to diarrhea, check daily weights
Weakness
-Consult PT/OT
ILD
-Continue prednisone, CellCept, Bactrim
-Wears 2 L of oxygen at bedtime
Chronic anemia
-Trend hemoglobin
Paroxysmal atrial fibrillation
-Continue metoprolol and eliquis
Rheumatoid arthritis
-Continue prednisone, CellCept, Bactrim
Type 2 diabetes
Carb controlled diet, sliding scale insulin, recent hemoglobin A1c 7.6
AAA status post repair 04/21/2024
Hypothyroidism
Continue Synthroid
Depression
Continue sertraline
Hyperlipidemia
Continue statin
Severe hearing loss
DVT prophylaxis�Eliquis
DNR confirmed by son/Law on phone 11/03
Total time spent to see the patient on the floor, examine the patient, review data and lab results, discuss treatment plan with patient, nursing staff around 77 minutes.
[2024-11-03 10:11] LABS: Phosphorus 3.1 mg/dl (2.5-4.5)
[2024-11-03] MEDS: TOPROL XL 50 MG PO (13:32)
[2024-11-03] MEDS: ELIQUIS 2.5 MG PO ×2 (13:32→19:29)
[2024-11-03] MEDS: DELTASONE 15 MG PO (13:34)
[2024-11-03] MEDS: CELLCEPT 1000 MG PO ×2 (13:35→19:29)
[2024-11-03] MEDS: JANUVIA 50 MG PO (13:35)
[2024-11-03] MEDS: LIDOCAINE 4% PATCH 1 PATCH TOPICAL (13:35)
[2024-11-03] MEDS: BACTRIM DS 800 MG/160 MG 1 TABLET PO (13:45)
[2024-11-03] MEDS: ROXICODONE 5 MG PO ×2 (15:56→19:28)
[2024-11-03 18:18] LABS: Glucose - Point of Care 178 mg/dl (70-99)
--- NOTE | 2024-11-03 18:55 | EDRN ---
Patient taken to room 322-1 with NSS infusing by electrical design technologist.
[2024-11-03] MEDS: NOVOLOG FLEXPEN-MODERATE RESISTANCE SC (19:24)
[2024-11-03] MEDS: NEURONTIN 300 MG PO (19:28)
[2024-11-03] MEDS: ZOLOFT 50 MG PO (19:33)
[2024-11-03] MEDS: CRESTOR 20 MG PO (19:33)
--- NOTE | 2024-11-03 19:44 | W.PN.UPDATE ---
Update Note
Progress Note Update
pt upset that his code status is listed as a DNR. He wished to be a full code. PT [email or web address]. Will change to reflect HIS wishes
[2024-11-03 21:30] LABS: Glucose - Point of Care 172 mg/dl (70-99)
[2024-11-03] MEDS: SYNTHROID 100 MCG PO (21:53)
[2024-11-04] VITALS (7 sets, daily range): BP systolic 96–131; BP diastolic 45–59; BMI 29.7
[2024-11-04 06:44] LABS: Hematocrit 27.7 % (39.0-52.0); Hemoglobin 8.7 g/dL (13.0-18.0); Mean Corp Hgb Conc. 31.4 g/dL (33.0-37.0); Mean Corpuscular Hgb 30.5 pg (27.0-31.0); Mean Corpuscular Volume 97.2 fL (80.0-94.0); Mean Platelet Volume 10.1 fL (7.4-10.4); Platelet Count 126 10^3/uL (130-400); Red Blood Cell Count 2.85 10^6/uL (4.70-6.10); Red Cell Dist. Width 15.9 % (11.5-14.5); White Blood Cell Count 5.8 10^3/uL (4.8-10.8)
[2024-11-04 07:41] LABS: Blood Urea Nitrogen 22 mg/dl (9-20); Calcium 7.4 mg/dl (8.4-10.2); Carbon Dioxide 25 mmol/L (22-30); Chloride 106 mmol/L (98-107); Estimated Creatinine Clearance 41 ml/min; Glucose 124 mg/dl (70-99); Magnesium 2.1 mg/dl (1.6-2.3); Potassium 3.7 mmol/L (3.5-5.1); Sodium 137 mmol/L (135-145); eGFR 53.17
[2024-11-04] MEDS: NSS 1000 IV (08:58)
[2024-11-04] MEDS: NOVOLOG FLEXPEN-MODERATE RESISTANCE 1 UNITS SC ×2 (08:59→17:47)
[2024-11-04] MEDS: ELIQUIS 2.5 MG PO (09:00)
[2024-11-04] MEDS: DELTASONE 15 MG PO (09:00)
[2024-11-04] MEDS: JANUVIA 50 MG PO (09:00)
[2024-11-04] MEDS: NEURONTIN 300 MG PO ×2 (09:00→20:49)
[2024-11-04] MEDS: CELLCEPT 1000 MG PO ×2 (09:01→20:49)
[2024-11-04] MEDS: LIDOCAINE 4% PATCH 1 PATCH TOPICAL (09:02)
[2024-11-04] MEDS: TOPROL XL PO (09:02)
--- NOTE | 2024-11-04 09:03 | W.PN.HOSP.TC ---
Today's Communication/Plan
-
Continue supportive care
Assessment / Plan
Assessment / Plan
HPI: 89-year-old male with a past medical history of interstitial lung disease on chronic prednisone and CellCept, CHF, abdominal aortic aneurysm status post recent repair, rheumatoid arthritis, CAD, and atrial fibrillation on eliquis presents with
nausea, vomiting, abdominal pain, and diarrhea. Patient states he has been having the symptoms for 3 days. He continues to have large-volume diarrhea. Denies bloody stools. Associated symptoms include left-sided abdominal cramping, nausea,
vomiting, and weakness. He denies chest pain, denies shortness of breath. No fever.
#Acute norovirus gastroenteritis
Tolerating full liquids, advance to low residue
Hold home lasix, cap IV fluids, continue supportive care
PT recommends home care
#Acute kidney injury superimposed on stage III chronic kidney disease
Resolved
IV fluids as above, hold Lasix/lisinopril
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
-Hold Lasix due to diarrhea, check daily weights
Weakness
-PT/OT - rec HH
ILD
-Continue prednisone, CellCept, Bactrim
-Wears 2 L of oxygen at bedtime
Chronic anemia
-Trend hemoglobin
Paroxysmal atrial fibrillation
-Continue metoprolol and eliquis
Rheumatoid arthritis
-Continue prednisone, CellCept, Bactrim
Type 2 diabetes
Carb controlled diet, sliding scale insulin, recent hemoglobin A1c 7.6
AAA status post repair 04/21/2024
Hypothyroidism
Continue Synthroid
Depression
Continue sertraline
Hyperlipidemia
Continue statin
Severe hearing loss
DVT prophylaxis�Eliquis
Updated son Law 11/03
Total time spent to see the patient on the floor, examine the patient, review data and lab results, discuss treatment plan with patient, nursing staff around 51 minutes.
Physical Exam
General: No acute distress
HEENT: Normocephalic, Atraumatic, EOMI, MMM
Hard of hearing
Respiratory: Bibasilar crackles
Cardiac: Normal S1/S2, Regular Rate and Rhythm
GI: Soft, Nontender, Nondistended, Normal Bowel Sounds
Extremities: No Clubbing, Cyanosis
Neuro: Nonfocal/Grossly Intact
Anticipated Discharge: Within 24 hours
Subjective/Interval History
-
Date of Service: November 04, 2024
No more diarrhea or vomiting since admission. Patient continues to feel weak. He was lightheaded while going to the bathroom. No fever, no vomiting.
Objective Data
-
Labs:
Laboratory Results
11/04/24
06:07
WBC 5.8
Hgb 8.7 L
Hct 27.7 L
Plt Count 126 L
Sodium 137
Potassium 3.7
Chloride 106
Carbon Dioxide 25
BUN 22 H
Creatinine 1.3
Glucose 124 H
Calcium 7.4 L
Vital Signs:
Vital Signs
Temp Pulse Resp BP Pulse Ox
97.6 F 56 17 98/56 97
11/04/24 07:35 11/04/24 07:35 11/04/24 07:35 11/04/24 07:35 11/04/24 07:35
I&O
11/03/24 11/04/24 11/05/24
06:59 06:59 06:59
Intake Total 840 / 840
Output Total 920 / 920
Balance -920 / -920 840 / 840
[2024-11-04] MEDS: NOVOLOG FLEXPEN-MODERATE RESISTANCE SC (14:00)
--- NOTE | 2024-11-04 14:18 | CM ---
Met with patient to obtain information for assessment. Patient MEREDITH, he stated that he lives at [facility]. He confirmed that he can independently do all of his ADLs, personal care, dressing and bathing. Staff helps with med management
but he stated that is all that they do for him. He uses a walker and a scooter for long distances.
Patient stated that he would like to return there. Medically stable for d/c today. Son to transport.
Plan: Case management will continue to follow and assist with discharge planning. Home back to [facility].
[2024-11-04] MEDS: ROXICODONE 5 MG PO ×2 (14:39→22:24)
--- NOTE | 2024-11-04 14:45 | PTCARENOTE ---
Patient OOb to bathroom with assist and walker. Patient became dizzy and nauseous. Patient assisted back to bed. BP 120/49. Patient refusing to eat lunch due to nausea and bloating. Patient tolerating sips of elizabeth jeniffer and crackers. Physician made
aware, discharge is cancelled for today.
[2024-11-04 14:51] LABS: Glucose - Point of Care 159 mg/dl (70-99)
[2024-11-04 16:29] LABS: Glucose - Point of Care 164 mg/dl (70-99)
[2024-11-04] MEDS: CRESTOR 20 MG PO (17:47)
[2024-11-04] MEDS: ZOLOFT 50 MG PO (17:47)
[2024-11-04] MEDS: MAALOX 30 ML PO (18:47)
[2024-11-04] MEDS: ELIQUIS 5 MG PO (20:49)
[2024-11-04 21:50] LABS: Glucose - Point of Care 160 mg/dl (70-99)
[2024-11-04] MEDS: SYNTHROID 100 MCG PO (22:11)
[2024-11-05] MEDS: MELATONIN 5 MG PO (00:25)
[2024-11-05] MEDS: ZOFRAN 4 MG IV (01:32)
[2024-11-05] MEDS: ROXICODONE 5 MG PO (02:00)
[2024-11-05 03:09] VITALS: BP 139/66
[2024-11-05 05:30] VITALS: BMI 30.2
[2024-11-05 07:17] LABS: Hematocrit 26.6 % (39.0-52.0); Hemoglobin 8.4 g/dL (13.0-18.0); Mean Corp Hgb Conc. 31.6 g/dL (33.0-37.0); Mean Corpuscular Hgb 30.5 pg (27.0-31.0); Mean Corpuscular Volume 96.7 fL (80.0-94.0); Mean Platelet Volume 9.6 fL (7.4-10.4); Platelet Count 139 10^3/uL (130-400); Red Blood Cell Count 2.75 10^6/uL (4.70-6.10); Red Cell Dist. Width 15.9 % (11.5-14.5); White Blood Cell Count 5.9 10^3/uL (4.8-10.8)
[2024-11-05 07:18] VITALS: BP 108/54
[2024-11-05 07:31] LABS: Blood Urea Nitrogen 19 mg/dl (9-20); Calcium 7.4 mg/dl (8.4-10.2); Carbon Dioxide 25 mmol/L (22-30); Chloride 104 mmol/L (98-107); Estimated Creatinine Clearance 50 ml/min; Glucose 124 mg/dl (70-99); Magnesium 2.4 mg/dl (1.6-2.3); Phosphorus 2.2 mg/dl (2.5-4.5); Potassium 3.3 mmol/L (3.5-5.1); Sodium 136 mmol/L (135-145); eGFR 58.53
[2024-11-05 07:41] LABS: Glucose - Point of Care 110 mg/dl (70-99)
[2024-11-05] MEDS: NOVOLOG FLEXPEN-MODERATE RESISTANCE SC ×2 (09:15→13:10)
[2024-11-05] MEDS: MAALOX 30 ML PO (09:20)
[2024-11-05] MEDS: ELIQUIS 5 MG PO (09:20)
[2024-11-05] MEDS: TOPROL XL 50 MG PO (09:21)
[2024-11-05] MEDS: NEURONTIN 300 MG PO (09:21)
[2024-11-05] MEDS: DELTASONE 15 MG PO (09:21)
[2024-11-05] MEDS: JANUVIA 50 MG PO (09:24)
[2024-11-05] MEDS: LIDOCAINE 4% PATCH 1 PATCH TOPICAL (09:26)
[2024-11-05] MEDS: CELLCEPT 1000 MG PO (09:27)
--- NOTE | 2024-11-05 09:31 | W.PN.HOSP.TC ---
Today's Communication/Plan
-
Discharge today
Assessment / Plan
Assessment / Plan
HPI: 89-year-old male with a past medical history of interstitial lung disease on chronic prednisone and CellCept, CHF, abdominal aortic aneurysm status post recent repair, rheumatoid arthritis, CAD, and atrial fibrillation on eliquis presents with
nausea, vomiting, abdominal pain, and diarrhea. Patient states he has been having the symptoms for 3 days. He continues to have large-volume diarrhea. Denies bloody stools. Associated symptoms include left-sided abdominal cramping, nausea,
vomiting, and weakness. He denies chest pain, denies shortness of breath. No fever.
#Acute norovirus gastroenteritis
Tolerating solids
Medically stable for discharge
Counseled patient to hold Lasix until diarrhea has resolved
PT recommends home care
#Acute kidney injury superimposed on stage III chronic kidney disease
Resolved
IV fluids as above, hold Lasix
Resume lisinopril upon discharge
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
-Hold Lasix due to diarrhea, check daily weights
Weakness
-PT/OT - rec HH
ILD
-Continue prednisone, CellCept, Bactrim
-Wears 2 L of oxygen at bedtime
Chronic anemia
-Trend hemoglobin
Paroxysmal atrial fibrillation
-Continue metoprolol and eliquis
Rheumatoid arthritis
-Continue prednisone, CellCept, Bactrim
Type 2 diabetes
Carb controlled diet, sliding scale insulin, recent hemoglobin A1c 7.6
AAA status post repair 04/21/2024
Hypothyroidism
Continue Synthroid
Depression
Continue sertraline
Hyperlipidemia
Continue statin
Severe hearing loss
DVT prophylaxis�Eliquis
Updated son Law 11/03, 11/05
Physical Exam
General: No acute distress
HEENT: Normocephalic, Atraumatic, EOMI, MMM
Hard of hearing
Respiratory: Bibasilar crackles
Cardiac: Normal S1/S2, Regular Rate and Rhythm
GI: Soft, Nontender, Nondistended, Normal Bowel Sounds
Extremities: No Clubbing, Cyanosis
Neuro: Nonfocal/Grossly Intact
Anticipated Discharge: Today
Subjective/Interval History
-
Date of Service: November 05, 2024
Patient had diarrhea this morning. Reports vomiting last night, however nurse states he spit up. He ate 50% of breakfast. He did not sleep well. No fever.
Objective Data
-
Labs:
Laboratory Results
11/05/24
06:33
WBC 5.9
Hgb 8.4 L
Hct 26.6 L
Plt Count 139
Sodium 136
Potassium 3.3 L
Chloride 104
Carbon Dioxide 25
BUN 19
Creatinine 1.2
Glucose 124 H
Calcium 7.4 L
Vital Signs:
Vital Signs
Temp Pulse Resp BP Pulse Ox
97.5 F 70 17 108/54 97
11/05/24 07:18 11/05/24 07:18 11/05/24 07:18 11/05/24 07:18 11/05/24 07:18
I&O
11/04/24 11/05/24 11/06/24
06:59 06:59 06:59
Intake Total 840 / 840 1400 / 1400
Balance 840 / 840 1400 / 1400
[2024-11-05] MEDS: NEUTRA-PHOS POWDER PACKET 250 MG PO ×2 (10:56→13:15)
[2024-11-05] MEDS: KCL 20 MEQ PO (10:57)
[2024-11-05] MEDS: POTASSIUM PHOSPHATE 259.0909 MEQ IV (10:57)
[2024-11-05 11:00] VITALS: BP 135/64
[2024-11-05 11:50] LABS: Glucose - Point of Care 179 mg/dl (70-99)
[2024-11-05] MEDS: BACTRIM DS 800 MG/160 MG 1 TABLET PO (13:10)
--- NOTE | 2024-11-05 14:30 | W.DCSUMMARY ---
Discharge Summary
Discharge Data
Date of Admission: 11/03/24
Date of Discharge: 11/05/24
-
Pending Results: No
Hospital Course
Discharge diagnosis:
Acute norovirus gastroenteritis
Acute kidney injury superimposed on stage III chronic kidney disease
Hypokalemia
Hypophosphatemia
Chronic heart failure with a mildly reduced ejection fraction
Weakness
Interstitial lung disease
Chronic anemia
Paroxysmal atrial fibrillation on Eliquis
Rheumatoid arthritis
Type 2 diabetes
Abdominal aortic aneurysm status post repair March 2024
Hypothyroidism
Depression
Hyperlipidemia
Severe hearing loss
Obesity due to excess calories
Hospital course:
89-year-old male with a past medical history of atrial fibrillation on Eliquis, rheumatoid arthritis on prednisone, diabetes, interstitial lung disease, CHF, and severe hearing loss was admitted for acute norovirus gastroenteritis and acute kidney
injury superimposed on stage III chronic kidney disease. Patient's Lasix was held. He received supportive care and gentle IV fluids. His creatinine normalized.
Patient had hypokalemia, and hypophosphatemia. This was repleted.
Patient did have weakness. He was seen in conjunction with PT, who recommended home care.
Patient did not have any vomiting while in the hospital. He tolerated a diet. He is medically stable for discharge. He has been counseled to hold his Lasix while having diarrhea. He needs to follow-up with his primary care doctor in 1 week.
Disposition: Home with home care
Discharge planning: Required 39 minutes
Discharge Plan
-
Patient Disposition: Home with Home Care
Discharge Diagnosis/Procedures: Acute norovirus gastroenteritis, weakness, dehydration
Condition: Good
Diet: Low Fat, Low Cholesterol, 2 Gram Sodium and Diabetic, Carb Controlled
Activity: As tolerated
Activity Restrictions/Additional Instructions:
Hold Lasix until diarrhea resolves.
Follow-up with your family doctor in 1 week.
Referrals:
Jaylin Holguin MD [Family Provider] - in one week
Prescriptions:
Continued
sennosides [senna] 8.6 mg Tablet
8.6 mg PO QPM
sulfamethoxazole-trimethoprim 800-160 mg Tablet
1 tab PO MOWEFR
mycophenolate mofetil 500 mg Tablet
1,000 mg PO BID
sertraline 25 mg Tablet
50 mg PO QPM
rosuvastatin 20 mg Tablet
20 mg PO QPM
Osteo Bi-Flex Triple Strength 750 mg-644 mg- 30 mg-1 mg Tablet
1 tab PO DAILY
Eliquis 5 mg tablet
5 mg PO BID
gabapentin 300 mg Capsule
300 mg PO BID
nitroglycerin [Nitrostat] 0.4 mg Tablet, Sublingual
0.4 mg SUBLINGUAL [id number] PRN (Reason: chest pain)
acetaminophen 325 mg tablet
650 mg PO Q4HPRN PRN (Reason: mild pain)
guaifenesin 600 mg tablet extended release 12hr
600 mg PO Q12H
benzonatate 100 mg Capsule
100 mg PO TIDPRN PRN (Reason: cough) Qty: 30 0RF
miconazole nitrate [Antifungal (miconazole)] 2 % Cream
1 applic TOPICAL BIDPRN PRN (Reason: groin)
levothyroxine [Synthroid] 100 mcg Tablet
100 mcg PO HS
docusate sodium [Colace] 100 mg Capsule
200 mg PO BID
lisinopril 5 mg Tablet
5 mg PO DAILY
[place] Protect (zinc oxide) 12 % Cream
1 applic TOPICAL BIDPRN PRN (Reason: buttock)
alogliptin 25 mg Tablet
25 mg PO DAILY
prednisone 10 mg tablet
15 mg PO DAILY
lidocaine 4 % adhesive patch,medicated
1 patch topical DAILY
metoprolol succinate 50 mg tablet extended release 24 hr
50 mg PO DAILY
polyethylene glycol 3350 [HealthyLax] 17 gram powder in packet
17 g PO DAILY
Held
furosemide 40 mg Tablet
40 mg PO DAILY
Hold Instructions: Resume on 11/08/24.
Discharge Orders:
Discharge Patient (As Directed); Ordered 11/05/24
Ordered By: Reji Hodges
Discharge Date and Time
Discharge Date/Time: 11/05/24 16:15
Print Language: UKRAINIAN
[2024-11-05 15:05] VITALS: BP 128/67
== END 2024-11-05 16:15 | disposition home health service (06) ==
LOC: 3 WEST ACU 09:40
PROVIDERS: Emergency Medicine; ADMITTING PHYSICIAN Family Medicine; EMERGENCY PHYSICIAN Emergency Medicine; FAMILY PHYSICIAN Internal Medicine
DX: A08.11 Acute gastroenteropathy due to Norwalk agent (principal); R53.1 Weakness; R11.2 Nausea with vomiting, unspecified; R19.7 Diarrhea, unspecified; Z96.651 Presence of right artificial knee joint; Z87.891 Personal history of nicotine dependence; Z79.899 Other long term (current) drug therapy; I13.0 Hypertensive heart and chronic kidney disease with heart failure and stage 1 through stage 4 chronic kidney disease, or unspecified chronic kidney disease; E11.22 Type 2 diabetes mellitus with diabetic chronic kidney disease; N18.30 Chronic kidney disease, stage 3 unspecified; N17.9 Acute kidney failure, unspecified; J84.9 Interstitial pulmonary disease, unspecified; D64.9 Anemia, unspecified; I48.0 Paroxysmal atrial fibrillation; M06.9 Rheumatoid arthritis, unspecified; E03.9 Hypothyroidism, unspecified; F32.A Depression, unspecified; E78.00 Pure hypercholesterolemia, unspecified; Z66 Do not resuscitate; I25.10 Atherosclerotic heart disease of native coronary artery without angina pectoris; J44.9 Chronic obstructive pulmonary disease, unspecified; Z79.01 Long term (current) use of anticoagulants; Z86.79 Personal history of other diseases of the circulatory system; Z99.81 Dependence on supplemental oxygen
CPT/HCPCS: 80048; 80053; 81003; 81015; 82962; 83735; 84100; 85025; 85027; 87045; 87046; 87070; 87324; 87427; 87449; 87798; 96360; 97162; 97167; 99285; G0378

== ENCOUNTER 2024-12-08 15:10 | Emergency (ER) | payer MEDICARE, OTHER, SELFPAY ==
[2024-12-08 15:13] VITALS: BP 105/58
[2024-12-08 15:40] LABS: % Basophils 0.1 % (0-2); % Immature Granulocytes 0.5 % (0-0.5); % Lymphocytes 6.8 % (20.5-51.1); % Monocytes 3.9 % (1.7-9.3); % Neutrophils 88.7 % (42.2-75.2); Absolute Immature Granulocytes 0.1 10^3/uL (0-0.05); Absolute Lymphocytes 0.7 10^3/uL (1.2-3.4); Absolute Monocytes 0.4 10^3/uL (0.1-0.6); Absolute Neutrophils 9.4 10^3/uL (1.4-6.5); Hematocrit 34.6 % (39.0-52.0); Hemoglobin 10.5 g/dL (13.0-18.0); Mean Corp Hgb Conc. 30.3 g/dL (33.0-37.0); Mean Corpuscular Hgb 29.4 pg (27.0-31.0); Mean Corpuscular Volume 96.9 fL (80.0-94.0); Mean Platelet Volume 9.2 fL (7.4-10.4); Nucleated Red Blood Cells % 0 % (-); Platelet Count 212 10^3/uL (130-400); Red Blood Cell Count 3.57 10^6/uL (4.70-6.10); Red Cell Dist. Width 16.6 % (11.5-14.5); White Blood Cell Count 10.6 10^3/uL (4.8-10.8)
[2024-12-08 15:58] LABS: ALT (SGPT) 18 U/L (0-50); AST (SGOT) 23 U/L (17-59); Albumin 4.4 g/dl (3.5-5.0); Alkaline Phosphatase 67 U/L (38-126); Blood Urea Nitrogen 33 mg/dl (9-20); Calcium 9.4 mg/dl (8.4-10.2); Carbon Dioxide 24 mmol/L (22-30); Chloride 101 mmol/L (98-107); Glucose 169 mg/dl (70-99); Potassium 4.5 mmol/L (3.5-5.1); Sodium 139 mmol/L (135-145); Total Bilirubin 0.7 mg/dl (0.2-1.3); Total Protein 6.9 g/dl (6.3-8.2); eGFR 44.78
[2024-12-08 16:01] LABS: Troponin I < 0.012 ng/ml
--- NOTE | 2024-12-08 17:01 | ED.GENMED ---
History of Present Illness
General
Chief Complaint: Weakness
Source: patient, records and family
Exam Limitations: none
Time Seen by Provider: 12/08/24 16:48
Nursing documentation reviewed up to this point in time: agreed with
History of Present Illness
History of Present Illness:
89-year-old male with a past medical history of interstitial lung disease on as needed home oxygen, atrial fibrillation, CHF, hypertension, hyperlipidemia, diabetes who presents to the emergency room accompanied by his son for evaluation of
weakness, shortness of breath. Patient reports symptoms have been ongoing for about 3 to 4 days. He reports that he feels generally weak and fatigued with no energy. He reports shortness of breath when he exerts himself�he says that even walking
a few steps to the refrigerator causes him to feel short of breath and mildly dizzy. He reports some mild weight loss. He says he has had a hacking cough productive of clear sputum. He has not noted any swelling in the legs. He has not had any
chest pain. He has not had any abdominal pain, nausea, vomiting, diarrhea. He denies any urinary symptoms. Denies fever or chills. Denies any other complaints.
Past History
Past History
ED Past Medical History: CHF, HTN and Other (Interstitial lung disease)
ED Past Surgical History: Orthopedic (Right knee replacement, kyphoplasty) and Other (Left carotid endarterectomy, aortic aneurysm repair)
Social History
Tobacco: Non-smoker
Alcohol: None
Drug: None
Review of Systems
Review of Systems
All Other Systems: ROS reviewed and negative except as documented in HPI and ROS
Constitutional: Reports fatigue; Denies fever or chills
Respiratory: Reports cough and trouble breathing
Cardiac: Denies chest pain or palpitations
ABD/GI: Denies abdominal pain, nausea, vomiting or diarrhea
: Denies dysuria, frequency or flank pain
Musculoskeletal: Denies neck pain or back pain
Neurological: Reports dizzy and weakness (Generalized); Denies headache or numbness
Phy Exam
Physical Exam
Physical Exam:
General: Awake, alert, oriented x3 but very hard of hearing; no acute distress
Head: Normocephalic, atraumatic
Eyes: Conjunctiva normal, sclera anicteric
Throat: Airway intact, handling secretions
Neck: Trachea midline, no JVD
Lungs: Patient has faint crackles at the right lung base compared to the left; no tachypnea or increased work of breathing, oxygenation acceptable on room air
Heart: Regular rate and rhythm, systolic murmur
Abd: Soft, non distended, nontender
Neuro: Cranial nerves grossly intact, speech fluid, motor and sensory intact and symmetric in the extremities
Extremities: No edema in extremities, warm well-perfused
Scores
Heart Failure Risk
Heart Failure Risk Score: Not Applicable
Heart Score for Chest Pain Patients
STEMI patient?: Not applicable
Withdrawal Assessment of Alcohol
Withdrawal Assessment Completed?: Not applicable
Course
Orders/Labs/Results
Orders:
Orders
12/08/24 15:16
Electrocardiogram (*1) Urgent
Reason for Study: Fatigue / Weakness
EKG- Treatment ONCE
12/08/24 15:27
Complete Blood Count/With Diff Urgent
Comprehensive Metabolic Panel Urgent
NT-proBNP Urgent
Comment: ADD ON
Troponin I Urgent
12/08/24 17:00
Bladder Scan- Treatment ONCE
CR Chest - 2 Views Urgent
Comment:
Reason For Exam: cough, weakness, sob
12/08/24 17:05
Add On- LAB Urgent
Tests Added?: pro BNP
12/08/24 17:16
COVID-19 Antigen Urgent
Source: Nasal Swab
Urinalysis Reflex To Culture Urgent
Date Specimen was Collected: 12/08/24
Time Specimen was Collected: 17:15
Influenza A+B Rapid Molecular Urgent
KIKA Source: Nasal Swab
Specimen Description:
04/14/25 18:12
Azithromycin 500 mg/250 ml [Zithromax Infusion] 500 mg in 250 ml IV NOW
CefTRIAXone [Rocephin] 1,000 mg IV NOW STA
Abnormal Lab Results
12/08/24 12/08/24
15:27 17:16
RBC 3.57 L 10^6/uL
(4.70-6.10)
Hgb 10.5 L g/dL
(13.0-18.0)
Hct 34.6 L %
(39.0-52.0)
MCV 96.9 H fL
(80.0-94.0)
MCHC 30.3 L g/dL
(33.0-37.0)
RDW 16.6 H %
(11.5-14.5)
Abs Immat Gran (auto) 0.1 H 10^3/uL
(0-0.05)
Absolute Neuts (auto) 9.4 H 10^3/uL
(1.4-6.5)
Absolute Lymphs (auto) 0.7 L 10^3/uL
(1.2-3.4)
Neutrophils % 88.7 H %
(42.2-75.2)
Lymphocytes % 6.8 L %
(20.5-51.1)
BUN 33 H mg/dl
(9-20)
Creatinine 1.5 H mg/dL
(0.7-1.3)
Glucose 169 H mg/dl
(70-99)
Urine Glucose 4+ A
(Negative)
12/08/24 15:27
12/08/24 15:27
Vital Signs
Initial and Last Documented VS:
Initial Vital Signs
Temp Pulse Resp BP Pulse Ox
36.7 C 85 20 105/58 95
12/08/24 15:13 12/08/24 15:13 12/08/24 15:13 12/08/24 15:13 12/08/24 15:13
Last Documented Vital Signs
Temp Pulse Resp BP Pulse Ox
36.7 C 61 20 129/64 95
12/08/24 15:13 12/08/24 18:00 12/08/24 18:00 12/08/24 18:00 12/08/24 15:13
MDM/Problems Addressed
Differential Diagnosis Includes:
Shortness of breath: Anemia, pneumonia, CHF, symptomatic A-fib
Weakness: Dehydration, electrolyte derangement, infection
MDM/Problems Addressed:
89-year-old male presents with increased generalized weakness and shortness of breath, coughing for the past few days. Vitals and exam as above. While he does have a history of heart failure he has not noticed any swelling in the legs and actually
reports weight loss rather than weight gain. EKG shows sinus rhythm with no STEMI. Plan to place an IV check labs including a CBC and a CMP, proBNP. Check chest x-ray. Check bladder scan and urinalysis. Swab for COVID and flu. Monitor closely
reassess after the above.
Labs reviewed: CBC shows stable anemia, CMP shows mild NIKO with a creatinine of 5 from baseline of 1.2. Troponin undetectable, proBNP not significantly elevated and no signs of CHF on exam. His urinalysis is negative for infection. COVID and flu
negative. Chest x-ray shows bibasilar opacities more pronounced on the right�read as suspected to be chronic/interstitial lung disease but given his full clinical picture concern for superimposed pneumonia. Plan to treat with antibiotics. Treat
with IV fluids. Admit for continued monitoring. Discussed with hospitalist.
After initial plan for admission I had a long discussion with patient and son. Patient says that he does not feel he needs to stay in the hospital he wishes to go home. His vital signs are stable including blood pressure 129/64, heart rate in 60s,
pulse ox of 95% on room air and respiratory rate of 18-20. I think this is not an unreasonable plan�his son showed me that they will follow-up with primary doctor in the office this week. Using shared decision making we will plan to discharge will
start on oral antibiotic and patient will follow-up closely with PCP. Return with worsening symptoms or if symptoms not improving. All questions answered.
*Radiology
Radiology exam reviewed: preliminary read by ED provider and radiology read reviewed
*Pulse Oximetry
Patient hypoxic: no
*EKG
Interpreted by ED Provider?: Yes
Comparison EKG: no changes
Heart Rate: 72
Rate: normal
Rhythm: sinus
[place]: left axis deviation
Interval: normal interval
QRS Pattern: left vent hypertrophy
Ischemia: no ischemia
*Critical Care Note
Total Time (30-74mins, 75-104mins- exclusive of procedures): Not Applicable
Data Reviewed
Review of Other/Old Records Reveals: Labs and Records
Source: patient, records and family
Patient Management
Social determinants of health affecting care: Strong social support
Escalation/DeEscalation of care consider admission/obs:
Recommended admission but using shared decision making with the patient and son we will plan for discharge with strict return precautions and close follow-up
ED Attending Note
-
Portions of this chart may have been created with voice recognition software.� Occasional wrong word or��sound alike� substitutions may have occurred due to the inherent limitations of voice recognition software.
Discharge Plan
Departure
Patient Disposition: Home (Routine Discharge)
Date of Disposition: 12/08/24
Time of Disposition: 18:14
Patient with high blood pressure during this ER visit?: No
Discharge Problem:
Pneumonia, NIKO (acute kidney injury)
Instructions: Pneumonia in adults
Prescriptions:
New
amoxicillin-pot clavulanate 875-125 mg tablet
1 tab PO BID Qty: 14 0RF
azithromycin [Zithromax] 250 mg tablet
250 mg PO DAILY Qty: 4 0RF
No Action
furosemide 40 mg Tablet
40 mg PO DAILY
sulfamethoxazole-trimethoprim 800-160 mg Tablet
1 tab PO MOWEFR
mycophenolate mofetil 500 mg Tablet
1,000 mg PO BID
rosuvastatin 20 mg Tablet
20 mg PO QPM
Osteo Bi-Flex Triple Strength 750 mg-644 mg- 30 mg-1 mg Tablet
1 tab PO DAILY
Eliquis 5 mg tablet
5 mg PO BID
gabapentin 300 mg Capsule
300 mg PO BID
acetaminophen 325 mg tablet
650 mg PO Q4HPRN PRN (Reason: mild pain/fever)
guaifenesin 600 mg tablet extended release 12hr
600 mg PO Q12H
benzonatate 100 mg Capsule
100 mg PO TIDPRN PRN (Reason: cough) Qty: 30 0RF
levothyroxine [Synthroid] 100 mcg Tablet
100 mcg PO HS
docusate sodium [Colace] 100 mg Capsule
200 mg PO BID
lisinopril 5 mg Tablet
5 mg PO DAILY
metoprolol succinate 50 mg tablet extended release 24 hr
50 mg PO DAILY
sertraline 100 mg Tablet
50 mg PO HS
prednisone 2.5 mg Tablet
17.5 mg PO DAILY
Jardiance 25 mg Tablet
12.5 mg PO DAILY
sitagliptin 100 mg Tablet
100 mg PO DAILY
Referrals:
Jaylin Holguin MD [Family Provider] - Follow up in 2-3 days
Activity Restrictions/Additional Instructions:
Thank you for visiting the Emergency Department at [facility].
1. Please schedule a follow up appointment as directed. Call first thing tomorrow morning to make an appointment.
2. If indicated, please take your medications as instructed and indicated on discharge paperwork.
3. If any of your symptoms do not improve, or persist, or become more severe within 6-12 hours, please return to the emergency department for further care.
4. Please return to the emergency department if you develop a headache, neck pain/stiffness, fever greater than 100.4F, chest pain, shortness of breath, persistent nausea, vomiting, slurred speech, difficulty walking, numbness/tingling, weakness,
signs of infection or any other symptoms that are worrisome to you.
Please call [phone] if you have any questions.
Interventions
Interventions:
*Risk Screen - Suicide Last Done: 12/08/24 15:13
*General Assessment Last Done: 12/08/24 17:18
*Neglect/Abuse Screening Last Done: 12/08/24 15:13
*ED- Fall Risk Assessment Last Done: 12/08/24 17:18
*ED COVID-19 Vaccine History Last Done: 12/08/24 17:18
ED- Cardiac Assessment Last Done: 12/08/24 17:46
ED- Neurological Assessment Last Done: 12/08/24 17:46
ED- Pulmonary Assessment Last Done: 12/08/24 17:46
Discharge Date and Time
Print Language: PANAMANIAN
[2024-12-08 17:18] VITALS: BMI 30.4
[2024-12-08 17:20] VITALS: BP 131/67
[2024-12-08 17:33] LABS: Urine Albumin Negative (Neg - Trace); Urine Bilirubin Negative (Negative); Urine Character Clear (Clear); Urine Color Yellow; Urine Glucose 4+ (Negative); Urine Ketone Negative (Negative); Urine Leukocyte Negative (Negative); Urine Nitrite Negative (Negative); Urine Occult Blood Negative (Negative); Urine Urobilinogen Negative (Neg - 1+)
[2024-12-08 17:54] LABS: NT-proBNP 361 pg/ml
[2024-12-08 17:55] LABS: COVID-19 Antigen Negative (Negative)
[2024-12-08 18:00] VITALS: BP 129/64
[2024-12-08] MEDS: ZITHROMAX 500 MG PO (18:35)
[2024-12-08] MEDS: ROCEPHIN 2.8571 MG IM (18:36)
== END 2024-12-08 18:55 | disposition home or self-care (01) ==
LOC: EMR 15:10
PROVIDERS: EMERGENCY PHYSICIAN Emergency Medicine; FAMILY PHYSICIAN Internal Medicine
DX: J18.9 Pneumonia, unspecified organism (principal); N17.9 Acute kidney failure, unspecified; I11.0 Hypertensive heart disease with heart failure; I50.9 Heart failure, unspecified; Z11.52 Encounter for screening for COVID-19
CPT/HCPCS: 96374; 99285; 71046; 80053; 81003; 83880; 84484; 85025; 87502; 87811; 93005

== ENCOUNTER 2025-01-10 15:58 | Emergency (ER) | payer MEDICARE, OTHER, SELFPAY ==
[2025-01-10 16:07] VITALS: BP 110/57
[2025-01-10 16:30] LABS: % Basophils 0.1 % (0-2); % Immature Granulocytes 0.6 % (0-0.5); % Lymphocytes 5.6 % (20.5-51.1); % Monocytes 5.4 % (1.7-9.3); % Neutrophils 88.3 % (42.2-75.2); Absolute Immature Granulocytes 0.1 10^3/uL (0-0.05); Absolute Lymphocytes 0.6 10^3/uL (1.2-3.4); Absolute Monocytes 0.6 10^3/uL (0.1-0.6); Absolute Neutrophils 9.6 10^3/uL (1.4-6.5); Hematocrit 34.5 % (39.0-52.0); Hemoglobin 10.5 g/dL (13.0-18.0); Mean Corp Hgb Conc. 30.4 g/dL (33.0-37.0); Mean Corpuscular Hgb 30.3 pg (27.0-31.0); Mean Corpuscular Volume 99.4 fL (80.0-94.0); Mean Platelet Volume 9.5 fL (7.4-10.4); Nucleated Red Blood Cells % 0 % (-); Platelet Count 198 10^3/uL (130-400); Red Blood Cell Count 3.47 10^6/uL (4.70-6.10); Red Cell Dist. Width 17.3 % (11.5-14.5); White Blood Cell Count 10.9 10^3/uL (4.8-10.8)
[2025-01-10 16:45] LABS: INR 1.48; PT 18.1 Sec (11.4-14.6)
[2025-01-10 16:53] LABS: ALT (SGPT) 18 U/L (0-50); AST (SGOT) 21 U/L (17-59); Albumin 4.2 g/dl (3.5-5.0); Alkaline Phosphatase 45 U/L (38-126); Blood Urea Nitrogen 32 mg/dl (9-20); Calcium 9.1 mg/dl (8.4-10.2); Carbon Dioxide 25 mmol/L (22-30); Chloride 103 mmol/L (98-107); Glucose 193 mg/dl (70-99); Potassium 4.1 mmol/L (3.5-5.1); Sodium 139 mmol/L (135-145); Total Bilirubin 0.6 mg/dl (0.2-1.3); Total Protein 6.7 g/dl (6.3-8.2); eGFR 41.44
[2025-01-10 16:55] LABS: Troponin I < 0.012 ng/ml
[2025-01-10 19:35] LABS: NT-proBNP 665 pg/ml
[2025-01-10 19:44] VITALS: BP 108/64
[2025-01-10 19:46] VITALS: BMI 28.8
--- NOTE | 2025-01-10 19:54 | ED.GENMED ---
History of Present Illness
<Aimee Lechuga PA-C - Last Filed: 01/11/25 06:38>
General
Chief Complaint: Fall
Source: patient
Exam Limitations: none
Time Seen by Provider: 01/10/25 19:50
Nursing documentation reviewed up to this point in time: agreed with
History of Present Illness
History of Present Illness:
This is a 89-year-old male with a past medical history of abdominal aortic aneurysm, A-fib on Eliquis, CHF, diabetes, interstitial lung disease, presents emergency department today with concerns of low back pain radiating into the front of the
abdomen starting yesterday. Patient reports that this started while he was sitting on the couch. He has been eating without any difficulties. He denies any fevers or chills. He denies any inciting injury to the back pain, he denies any falls.
Contrary to triage note, patient reports that he had an episode of dizziness earlier today and he lowered himself to the ground but did not ever fall. Currently he denies any dizziness or lightheadedness. He denies any genital paresthesias or
urinary fecal incontinence. Patient does have a history of abdominal aortic aneurysm repaired by Dr. Contreras in March 2024. Contrary to triage note, he denies any increased edema, he denies any lower extremity edema or new shortness of breath. He
reports he has a history of interstitial lung disease and does wear oxygen with sleep and occasionally with exertion.
Past History
<Aimee Lechuga PA-C - Last Filed: 01/11/25 06:38>
Past History
ED Past Medical History: CHF, HTN and Other (Interstitial lung disease)
ED Past Surgical History: Orthopedic (Right knee replacement, kyphoplasty) and Other (Left carotid endarterectomy, aortic aneurysm repair)
Social History
Tobacco: Non-smoker
Alcohol: None
Drug: None
Review of Systems
<Aimee Lechuga PA-C - Last Filed: 01/11/25 06:38>
Review of Systems
All Other Systems: ROS reviewed and negative except as documented in HPI and ROS
Phy Exam
<Aimee Lechuga PA-C - Last Filed: 01/11/25 06:38>
Physical Exam
Physical Exam:
General: Patient is well appearing and in no acute distress; non-toxic
Skin: Warm and dry, no rashes or lesions
Head: Normocephalic, atraumatic
Eyes: Sclera non-icteric. EOMs intact.
Cardiac: Regular rate and rhythm, no murmurs
Peripheral Vascular: No lower extremity swelling or edema
Pulm: Normal respiratory effort, no wheezes, rales, rhonchi
Abdomen: Mild tenderness to palpation in the front of the abdomen with some guarding, no rebound tenderness
Musculoskeletal: Midline lower lumbar tenderness to palpation
Neuro: CN II-XII intact, no focal neurologic deficits. 5/5 strength in bilateral lower extremities. Sensation intact.
Psychiatric: Appropriate mood and affect.
Course
<Aimee Lechuga PA-C - Last Filed: 01/11/25 06:38>
Orders/Labs/Results
Orders:
Orders
01/10/25 16:06
Electrocardiogram (*1) Urgent
Reason for Study: Chest Pain
EKG- Treatment ONCE
01/10/25 16:23
Complete Blood Count/With Diff Urgent
Comprehensive Metabolic Panel Urgent
NT-proBNP Urgent
Comment: ADD ON
Prothrombin Time Urgent
Troponin I Urgent
01/10/25 18:45
Add On- LAB Urgent
Tests Added?: bnp
01/10/25 20:09
CT Abd/pelvis W Iv Cont Urgent
Comment:
Reason For Exam: low back pain radiating to abdomen, hx of AAA
01/10/25 22:21
Acetaminophen [Tylenol] 1,000 mg PO NOW STA
01/10/25 22:48
Lidocaine [Lidocaine 4% Patch] 1 patch TOPICAL DAILY ONE
Apply Lidocaine patch(s) to:: low back
01/10/25 22:55
Urinalysis Reflex To Culture Urgent
Date Specimen was Collected: 01/10/25
Time Specimen was Collected: 22:49
Urine Microscopic Reflex Cult Urgent
01/10/25 23:36
Straight Cath As Directed
Frequency: One time now
Patient may straight cath themselves: No
Abnormal Lab Results
01/10/25 01/10/25
16:23 22:55
WBC 10.9 H 10^3/uL
(4.8-10.8)
RBC 3.47 L 10^6/uL
(4.70-6.10)
Hgb 10.5 L g/dL
(13.0-18.0)
Hct 34.5 L %
(39.0-52.0)
MCV 99.4 H fL
(80.0-94.0)
MCHC 30.4 L g/dL
(33.0-37.0)
RDW 17.3 H %
(11.5-14.5)
Abs Immat Gran (auto) 0.1 H 10^3/uL
(0-0.05)
Absolute Neuts (auto) 9.6 H 10^3/uL
(1.4-6.5)
Absolute Lymphs (auto) 0.6 L 10^3/uL
(1.2-3.4)
Immature Gran % 0.6 H %
(0-0.5)
Neutrophils % 88.3 H %
(42.2-75.2)
Lymphocytes % 5.6 L %
(20.5-51.1)
PT 18.1 H Sec
(11.4-14.6)
BUN 32 H mg/dl
(9-20)
Creatinine 1.6 H mg/dL
(0.7-1.3)
Glucose 193 H mg/dl
(70-99)
Urine Bacteria (Reflex) Few A
(Negative)
Urine Glucose 4+ A
(Negative)
Urine Albumin (Reflex) 1+ A
(Neg - Trace)
01/10/25 16:23
01/10/25 16:23
Vital Signs
Initial and Last Documented VS:
Initial Vital Signs
Temp Pulse Resp BP Pulse Ox
98.5 F 67 18 110/57 98
01/10/25 16:07 01/10/25 16:07 01/10/25 16:07 01/10/25 16:07 01/10/25 16:07
Last Documented Vital Signs
Temp Pulse Resp BP Pulse Ox
98.5 F 55 14 116/58 95
01/10/25 16:07 01/10/25 20:15 01/10/25 20:15 01/10/25 20:00 01/10/25 20:15
<Marla Bobby MD - Last Filed: 01/10/25 23:00>
Orders/Labs/Results
Orders:
Orders
01/10/25 16:06
Electrocardiogram (*1) Urgent
Reason for Study: Chest Pain
EKG- Treatment ONCE
01/10/25 16:23
Complete Blood Count/With Diff Urgent
Comprehensive Metabolic Panel Urgent
NT-proBNP Urgent
Comment: ADD ON
Prothrombin Time Urgent
Troponin I Urgent
01/10/25 18:45
Add On- LAB Urgent
Tests Added?: bnp
01/10/25 20:09
CT Abd/pelvis W Iv Cont Urgent
Comment:
Reason For Exam: low back pain radiating to abdomen, hx of AAA
01/10/25 22:21
Acetaminophen [Tylenol] 1,000 mg PO NOW STA
01/10/25 22:48
Lidocaine [Lidocaine 4% Patch] 1 patch TOPICAL DAILY ONE
Apply Lidocaine patch(s) to:: low back
01/10/25 22:55
Urinalysis Reflex To Culture Urgent
Date Specimen was Collected: 01/10/25
Time Specimen was Collected: 22:49
Urine Microscopic Reflex Cult Urgent
01/10/25 23:36
Straight Cath As Directed
Frequency: One time now
Patient may straight cath themselves: No
Abnormal Lab Results
01/10/25 01/10/25
16:23 22:55
WBC 10.9 H 10^3/uL
(4.8-10.8)
RBC 3.47 L 10^6/uL
(4.70-6.10)
Hgb 10.5 L g/dL
(13.0-18.0)
Hct 34.5 L %
(39.0-52.0)
MCV 99.4 H fL
(80.0-94.0)
MCHC 30.4 L g/dL
(33.0-37.0)
RDW 17.3 H %
(11.5-14.5)
Abs Immat Gran (auto) 0.1 H 10^3/uL
(0-0.05)
Absolute Neuts (auto) 9.6 H 10^3/uL
(1.4-6.5)
Absolute Lymphs (auto) 0.6 L 10^3/uL
(1.2-3.4)
Immature Gran % 0.6 H %
(0-0.5)
Neutrophils % 88.3 H %
(42.2-75.2)
Lymphocytes % 5.6 L %
(20.5-51.1)
PT 18.1 H Sec
(11.4-14.6)
BUN 32 H mg/dl
(9-20)
Creatinine 1.6 H mg/dL
(0.7-1.3)
Glucose 193 H mg/dl
(70-99)
Urine Bacteria (Reflex) Few A
(Negative)
Urine Glucose 4+ A
(Negative)
Urine Albumin (Reflex) 1+ A
(Neg - Trace)
01/10/25 16:23
01/10/25 16:23
Vital Signs
Initial and Last Documented VS:
Initial Vital Signs
Temp Pulse Resp BP Pulse Ox
98.5 F 67 18 110/57 98
01/10/25 16:07 01/10/25 16:07 01/10/25 16:07 01/10/25 16:07 01/10/25 16:07
Last Documented Vital Signs
Temp Pulse Resp BP Pulse Ox
98.5 F 55 14 116/58 95
01/10/25 16:07 01/10/25 20:15 01/10/25 20:15 01/10/25 20:00 01/10/25 20:15
<Aimee Lechuga PA-C - Last Filed: 01/11/25 06:38>
MDM/Problems Addressed
Differential Diagnosis Includes:
ddx include endoleak, lumbar sprain, UTI, vertebral compression fracture
MDM/Problems Addressed:
This is a 89-year-old male with a past medical history of abdominal aortic aneurysm s/p repair, A-fib on Eliquis, CHF, diabetes, interstitial lung disease, presents emergency department today with concerns of low back pain radiating into the front
of the abdomen starting yesterday. Patient reports that this started while he was sitting on the couch. He also notes an episode where he almost fell, falling into the wall and lowering himself onto the ground. The back pain seemed to get worse
after this instance. He denies genital or fecal incontinence, genital paresthesias. On physical exam, he is well appearing, in no acute distress, he does have a normal neurologic exam. He is able to ambulate without difficulty. His CT scan of the
abdomen showed unchanged aortic aneursym repair with no evidence of endovascular leak. There was also no evidence for acute vertebral fracture.
Labs reviewed. Renal function at baseline. Hemoglobin at baseline. Urinalysis not suggestive of infection. Patient requests a bladder scan as patient states that when he has had similar back pain in the past, it relieved with bladder emptying.
Patient denies pelvic pain and reports that he has been urinating frequently and does not feel that he is retaining. On post void bladder scan, patient does appear to be retaining 240 ml. He is requesting to be straight cathed. Patient feels like he
emptied his bladder and is unable to urinate further. Son and patient do note a history of urinary retention and he reports that he has required a long catheter in the past but states that he currently will straight cath as needed with the help of
nursing staff. After straight cath procedure, patient notes a significant improvement in his back pain and abdominal pain, currently pain free. Back pain in the setting of urinary retention does raise suspicion of cauda equina syndrome. I did
suggest and discuss admission for MRI. Son reports that patient does not do well in the hospital. Patient is requesting to go home. I think this is reasonable as patient has a long history of urinary retention, has a normal non-focal neurologic
exam, is currently pain free, and is able to ambulate without difficulty. I did discuss strict return precautions with patient and family. Discussed close follow up with urologist and PCP Reviewed with ED attending. Patient stable for discharge.
Chronic conditions affecting care:
AAA, htn, afib
<Aimee Lechuga PA-C - Last Filed: 01/11/25 06:38>
*Pulse Oximetry
Patient hypoxic: no
*Critical Care Note
Total Time (30-74mins, 75-104mins- exclusive of procedures): Not Applicable
Data Reviewed
Review of Other/Old Records Reveals: Records (reviewed prior ER physician documentation, reviewed discharge summary from 11/05/24 patient seen for neurovirus)
Source: patient and records
ED Attending Note
<Aimee Lechuga PA-C - Last Filed: 01/11/25 06:38>
-
Portions of this chart may have been created with voice recognition software.� Occasional wrong word or��sound alike� substitutions may have occurred due to the inherent limitations of voice recognition software.
<Marla Bobby MD - Last Filed: 01/10/25 23:00>
ED Attending Note
Patient seen and examined by attending physician: Yes
I performed the substantive portion of visit, reviewed & personally made and approve the management plan that is documented in note by myself or NORAH.: Yes
ED Attending Note:
I have seen and evaluated the patient with a [id number] encounter. I have spoken to the [PA] and involved in the medical history, the physical exam, medical decision making.
Evaluation and management service: agree unless noted differently below.
Results interpretation: agree unless noted differently below.
Patient is a 89-year-old man with history of CHF, ILD, presented to the emergency room with back pain. Patient states for the past few days has been having low back pain. No inciting event. No numbness tingling. No weakness. No saddle
anesthesia. He states that today he did have a fall after he got a little lightheaded as he did not eat. He did not hit his head or pass out. Since the fall he does state that the back pain has been more noticeable. He did take Tylenol at home
with no relief so he came in for further evaluation. During my evaluation patient is resting comfortably. He does have reproducible lower back pain tenderness to palpation. No neurodeficits in the upper or lower extremities. Likely
musculoskeletal pain versus compression fracture though less likely. However given patient's history of AAA we will obtain CT scan to make sure there is not any changes. Anticipate pain control and discharge home if patient is ambulatory with
adequate pain control
Discharge Plan
Departure
Patient Disposition: Home (Routine Discharge)
Date of Disposition: 01/11/25
Time of Disposition: 00:16
Patient with high blood pressure during this ER visit?: No
Condition: Good
Discharge Problem:
Abdominal pain, Back pain
Instructions: Back Pain, Abdominal Pain
Prescriptions:
No Action
furosemide 40 mg Tablet
40 mg PO DAILY
sulfamethoxazole-trimethoprim 800-160 mg Tablet
1 tab PO MOWEFR
mycophenolate mofetil 500 mg Tablet
1,000 mg PO BID
rosuvastatin 20 mg Tablet
20 mg PO QPM
Osteo Bi-Flex Triple Strength 750 mg-644 mg- 30 mg-1 mg Tablet
1 tab PO DAILY
Eliquis 5 mg tablet
5 mg PO BID
gabapentin 300 mg Capsule
300 mg PO BID
acetaminophen 325 mg tablet
650 mg PO Q4HPRN PRN (Reason: mild pain/fever)
guaifenesin 600 mg tablet extended release 12hr
600 mg PO Q12H
benzonatate 100 mg Capsule
100 mg PO TIDPRN PRN (Reason: cough) Qty: 30 0RF
levothyroxine [Synthroid] 100 mcg Tablet
100 mcg PO HS
docusate sodium [Colace] 100 mg Capsule
200 mg PO BID
lisinopril 5 mg Tablet
5 mg PO DAILY
metoprolol succinate 50 mg tablet extended release 24 hr
50 mg PO DAILY
sertraline 100 mg Tablet
50 mg PO HS
prednisone 2.5 mg Tablet
17.5 mg PO DAILY
Jardiance 25 mg Tablet
12.5 mg PO DAILY
sitagliptin 100 mg Tablet
100 mg PO DAILY
amoxicillin-pot clavulanate 875-125 mg tablet
1 tab PO BID Qty: 14 0RF
azithromycin [Zithromax] 250 mg tablet
250 mg PO DAILY Qty: 4 0RF
Referrals:
Jaylin Holguin MD [Family Provider] -
Activity Restrictions/Additional Instructions:
Your CT scan shows no new lumbar compression fractures. Your CT scan shows that your abdominal aortic aneurysm with graft is unchanged with no evidence of endoleak.
Please follow-up with your primary care provider in 1 week. You may need an MRI of your lumbar spine for further evaluation of your symptoms
PLEASE RETURN EMERGENCY DEPARTMENT IMMEDIATELY SHOULD YOU DEVELOP URINARY OR FECAL INCONTINENCE, GENITAL NUMBNESS OR TINGLING, INABILITY TO AMBULATE, NUMBNESS OR TINGLING IN HER LOWER EXTREMITIES, LIGHTHEADEDNESS, DIZZINESS, CHEST PAIN, SHORTNESS OF
BREATH, OR OTHER SIGNS OR SYMPTOMS WORRISOME TO YOU.
Interventions
Interventions:
*Risk Screen - Suicide Last Done: 01/10/25 16:07
*General Assessment Last Done: 01/10/25 19:46
*Neglect/Abuse Screening Last Done: 01/10/25 16:07
*ED- Fall Risk Assessment Last Done: 01/10/25 19:46
*ED COVID-19 Vaccine History Last Done: 01/10/25 19:46
*Nursing Disposition Last Done: 01/11/25 00:41
ED-Musculoskeletal Assessment Last Done: 01/10/25 19:46
ED- Neurological Assessment Last Done: 01/10/25 19:46
ED-Skin Assessment Last Done: 01/10/25 19:46
Discharge Date and Time
Print Language: FAROESE
[2025-01-10 20:00] VITALS: BP 116/58
[2025-01-10] MEDS: TYLENOL 1000 MG PO (22:38)
[2025-01-10] MEDS: LIDOCAINE 4% PATCH 1 PATCH TOPICAL (22:55)
[2025-01-10 23:05] LABS: Urine Albumin 1+ (Neg - Trace); Urine Bilirubin Negative (Negative); Urine Character Clear (Clear); Urine Color Yellow; Urine Glucose 4+ (Negative); Urine Ketone Negative (Negative); Urine Leukocyte Negative (Negative); Urine Nitrite Negative (Negative); Urine Occult Blood Negative (Negative); Urine Urobilinogen Negative (Neg - 1+)
[2025-01-10 23:19] LABS: Urine Bacteria Few (Negative); Urine Hyaline Cast >15 /LPF (0-2); Urine Mucus Few; Urine Red Blood Cell 0-2 /HPF (0-2); Urine Squamous Cell 0-2 /LPF (Few); Urine White Cell 0-2 /HPF (0-5)
== END 2025-01-11 00:41 | disposition home or self-care (01) ==
LOC: EMR 15:58
PROVIDERS: Physician Assistant; Student in an Organized Health Care Education/Training Program; EMERGENCY PHYSICIAN Student in an Organized Health Care Education/Training Program; FAMILY PHYSICIAN Internal Medicine
DX: R10.9 Unspecified abdominal pain (principal); M54.50 Low back pain, unspecified; R33.9 Retention of urine, unspecified; I48.91 Unspecified atrial fibrillation; I50.9 Heart failure, unspecified; E11.9 Type 2 diabetes mellitus without complications; Z79.01 Long term (current) use of anticoagulants; I11.0 Hypertensive heart disease with heart failure; I71.40 Abdominal aortic aneurysm, without rupture, unspecified
CPT/HCPCS: 99285; 51701; 74177; 80053; 81003; 81015; 83880; 84484; 85025; 85610; 93005; Q9967

== ENCOUNTER → 2025-01-13 14:56 | Outpatient (REF) | payer MEDICARE, OTHER, SELFPAY | LOC: HWRAD 14:56 | PROVIDERS: ATTENDING PHYSICIAN Radiology Diagnostic Radiology; FAMILY PHYSICIAN Internal Medicine; REFERRING PHYSICIAN Student in an Organized Health Care Education/Training Program | DX: Z01.818 Encounter for other preprocedural examination (principal) | CPT/HCPCS: 70030 ==

== ENCOUNTER 2025-01-15 21:08 | Observation (INO) | payer MEDICARE, OTHER, SELFPAY ==
[2025-01-15 16:46] VITALS: BP 144/57
[2025-01-15 17:00] VITALS: BP 111/64
[2025-01-15] MEDS: DILAUDID 0.5 MG IV (17:39)
[2025-01-15 18:00] VITALS: BP 131/65
[2025-01-15 18:51] LABS: Hematocrit 35.1 % (39.0-52.0); Hemoglobin 10.6 g/dL (13.0-18.0); Mean Corp Hgb Conc. 30.2 g/dL (33.0-37.0); Mean Corpuscular Volume 99.4 fL (80.0-94.0); Mean Platelet Volume 9.9 fL (7.4-10.4); Platelet Count 206 10^3/uL (130-400); Red Blood Cell Count 3.53 10^6/uL (4.70-6.10); Red Cell Dist. Width 17.2 % (11.5-14.5)
[2025-01-15 18:55] LABS: ALT (SGPT) 15 U/L (0-50); AST (SGOT) 20 U/L (17-59); Albumin 4.2 g/dl (3.5-5.0); Alkaline Phosphatase 51 U/L (38-126); Blood Urea Nitrogen 38 mg/dl (9-20); Calcium 8.8 mg/dl (8.4-10.2); Carbon Dioxide 24 mmol/L (22-30); Chloride 106 mmol/L (98-107); Glucose 139 mg/dl (70-99); Potassium 4.5 mmol/L (3.5-5.1); Sodium 142 mmol/L (135-145); Total Bilirubin 0.6 mg/dl (0.2-1.3); Total Protein 6.7 g/dl (6.3-8.2); eGFR 38.53
[2025-01-15 19:00] VITALS: BP 124/58
--- NOTE | 2025-01-15 20:12 | ED.GENMED ---
History of Present Illness
General
Chief Complaint: Musculo-Skeletal Complaint
Time Seen by Provider: 01/15/25 17:27
History of Present Illness
History of Present Illness:
89-year-old male presents the emergency department for evaluation of intractable back pain. He is having difficulty walking secondary to pain. He reports severe spasms. He was seen in this emergency department last week for the symptoms and had a
CT scan that showed a new L2 compression deformity. He reports chronic urinary retention that seems to be worsening but denies any new lower extremity radiculopathy. Has chronic paresthesias below the knees bilaterally but no new symptoms.
Past History
Past History
ED Past Medical History: CHF, HTN and Other (Interstitial lung disease)
ED Past Surgical History: Orthopedic (Right knee replacement, kyphoplasty) and Other (Left carotid endarterectomy, aortic aneurysm repair)
Social History
Tobacco: Non-smoker
Alcohol: None
Drug: None
Review of Systems
Review of Systems
Allergies reviewed?: Yes
All Other Systems: ROS reviewed and negative except as documented in HPI and ROS
Phy Exam
Physical Exam
Physical Exam:
GEN: Well appearing, NAD, WDWN
HEENT: Oral mucosa moist, no scleral icterus
Cardiac: Regular rate
Lung: No respiratory distress, no tachypnea
MSK: No gross deformity or injuries. Diffuse tenderness to the lumbar spine on palpation, no palpable deformities. Lumbar spine range of motion is difficult to assess due to frequent muscle spasms.
Skin: Good color, no pallor or jaundice, no rashes
Neuro: AO x3, moves all extremities freely. Strength of the lower extremities intact in all aponte however pain is elicited with hip flexion
Psych: Calm, cooperative
Course
Orders/Labs/Results
Orders:
Orders
01/15/25 17:37
HYDROmorphone [Dilaudid] 0.5 mg IV NOW STA
01/15/25 18:36
Complete Blood Count/No Diff Urgent
Comprehensive Metabolic Panel Urgent
Abnormal Lab Results
01/15/25
18:36
WBC 11.0 H 10^3/uL
(4.8-10.8)
RBC 3.53 L 10^6/uL
(4.70-6.10)
Hgb 10.6 L g/dL
(13.0-18.0)
Hct 35.1 L %
(39.0-52.0)
MCV 99.4 H fL
(80.0-94.0)
MCHC 30.2 L g/dL
(33.0-37.0)
RDW 17.2 H %
(11.5-14.5)
BUN 38 H mg/dl
(9-20)
Creatinine 1.7 H mg/dL
(0.7-1.3)
Glucose 139 H mg/dl
(70-99)
01/15/25 18:36
01/15/25 18:36
Vital Signs
Initial and Last Documented VS:
Initial Vital Signs
Temp Pulse Resp BP Pulse Ox
97.5 F 54 16 144/57 99
01/15/25 16:46 01/15/25 16:46 01/15/25 16:46 01/15/25 16:46 01/15/25 16:46
Last Documented Vital Signs
Temp Pulse Resp BP Pulse Ox
97.5 F 50 19 124/58 96
01/15/25 16:46 01/15/25 19:00 01/15/25 17:30 01/15/25 19:00 01/15/25 17:45
MDM/Problems Addressed
MDM/Problems Addressed:
Patient with intractable pain secondary to L2 compression fracture, will admit for further workup and management as well as pain control
*Critical Care Note
Total Time (30-74mins, 75-104mins- exclusive of procedures): Not Applicable
ED Attending Note
-
Portions of this chart may have been created with voice recognition software.� Occasional wrong word or��sound alike� substitutions may have occurred due to the inherent limitations of voice recognition software.
Discharge Plan
Departure
Patient Disposition: Admit
Date of Disposition: 01/15/25
Time of Disposition: 20:14
Admit to: Med/Surg
Presentation/result/management discussed w/ accepting MD/DO: Hospitalist
Discharge Problem:
Compression fracture of L2, Ambulatory dysfunction
Prescriptions:
No Action
furosemide 40 mg Tablet
40 mg PO DAILY
sulfamethoxazole-trimethoprim 800-160 mg Tablet
1 tab PO MOWEFR
mycophenolate mofetil 500 mg Tablet
1,000 mg PO BID
rosuvastatin 20 mg Tablet
20 mg PO QPM
Osteo Bi-Flex Triple Strength 750 mg-644 mg- 30 mg-1 mg Tablet
1 tab PO DAILY
Eliquis 5 mg tablet
5 mg PO BID
gabapentin 300 mg Capsule
300 mg PO BID
acetaminophen 325 mg tablet
650 mg PO Q4HPRN PRN (Reason: mild pain/fever)
guaifenesin 600 mg tablet extended release 12hr
600 mg PO Q12H
benzonatate 100 mg Capsule
100 mg PO TIDPRN PRN (Reason: cough) Qty: 30 0RF
levothyroxine [Synthroid] 100 mcg Tablet
100 mcg PO HS
docusate sodium [Colace] 100 mg Capsule
200 mg PO BID
lisinopril 5 mg Tablet
5 mg PO DAILY
metoprolol succinate 50 mg tablet extended release 24 hr
50 mg PO DAILY
sertraline 100 mg Tablet
50 mg PO HS
prednisone 2.5 mg Tablet
17.5 mg PO DAILY
Jardiance 25 mg Tablet
12.5 mg PO DAILY
sitagliptin 100 mg Tablet
100 mg PO DAILY
amoxicillin-pot clavulanate 875-125 mg tablet
1 tab PO BID Qty: 14 0RF
azithromycin [Zithromax] 250 mg tablet
250 mg PO DAILY Qty: 4 0RF
Referrals:
Jaylin Holguin MD [Family Provider] -
Interventions
Interventions:
*Risk Screen - Suicide Last Done: 01/15/25 16:46
*General Assessment Last Done: 01/15/25 16:46
*Neglect/Abuse Screening Last Done: 01/15/25 16:46
*ED- Fall Risk Assessment Last Done: 01/15/25 16:46
*ED COVID-19 Vaccine History Last Done: 01/15/25 16:46
ED-Musculoskeletal Assessment Last Done: 01/15/25 17:23
Discharge Date and Time
Print Language: BURKIN[place]
--- NOTE | 2025-01-15 20:18 | HPS.HSE ---
Family Physician
-
Family Physician: Jaylin Holguin MD
Chief Complaint
-
right lower back to mid back pain.
History of Present Illness
89-year-old male with past medical history of hypothyroidism, peripheral artery disease, AAA, hypothyroidism, A-fib, coronary artery disease, heart failure, pulmonary hypertension, interstitial lung disease presents the emergency department for
evaluation of intractable back pain. Patient stated chronic back pain for 3 years. The pain flared on Sunday. Patient complained of right lower back to the mid back. It does not radiate to his legs. He was prescribed tramadol but never took
it. on Sunday he felt very weak and dizzy and he lowered himself to the floor. Patient denied any headache or syncope. Patient denied any fever, chills, chest pain, short of breath. Patient denied abdominal pain, nausea, vomiting, diarrhea.
Patient has chronic urinary retention. Patient has chronic numbness to his bilateral hands and lower extremities.
Recent CT with impression of new trace superior endplate irregularity of the L2 vertebral body which may represent a developing compression fracture.
Patient received Dilaudid in the ER. Admitted for further management
Medical History
Past Medical History
Past Medical History: Reports Other
Additional Past Medical History:
Hypothyroidism, peripheral artery disease, AAA,, coronary artery disease, A-fib, CHF, pulmonary hypertension, interstitial lung disease
Past Surgical History: Reports Other
Additional Past Surgical History:
Kyphoplasty, left cataract removed, eyelid surgery
Social History
Tobacco: Former Smoker
Alcohol: None
Drug: None
Personal: Single
Living: Assisted Living
Family History
Family History: Not pertinent
Allergies / Home Medications
Allergies reflects when Allergies were last updated in [facility].
Home Medications with original date entered in [facility]
Allergy/Medication List:
Allergies
Allergy/AdvReac Type Severity Reaction Status Date / Time
codeine Allergy Vomiting Verified 05/17/25 16:06
Home Medications
mycophenolate mofetil 500 mg tablet 1,000 mg PO BID interstitial lung disease 03/03/24
rosuvastatin 20 mg tablet 20 mg PO QPM High Cholesterol 03/03/24
sulfamethoxazole 800 mg-trimethoprim 160 mg tablet 1 tab PO MOWEFR Infection prophylaxis 03/03/24
glucosamine 750 [id number] no1 644 mg-C 30 mg-nissa 1 mg tablet (Osteo Bi-Flex Triple Strength) 1 tab PO DAILY Supplement 04/10/24
apixaban 5 mg tablet (Eliquis) 5 mg PO BID AFib 04/19/24
gabapentin 300 mg capsule 300 mg PO BID Pain 06/08/24
acetaminophen 325 mg tablet 650 mg PO Q4HPRN PRN mild pain/fever 08/12/24
guaifenesin 600 mg tablet, extended release 12 hr 600 mg PO Q12H Cough 08/12/24
benzonatate 100 mg capsule 100 mg PO TIDPRN PRN cough #30 caps 08/19/24
docusate sodium 100 mg capsule (Colace) 200 mg PO BID Constipation 11/03/24
levothyroxine 100 mcg tablet (Synthroid) 100 mcg PO HS Thyroid 11/03/24
lisinopril 5 mg tablet 5 mg PO DAILY Blood Pressure 11/03/24
metoprolol succinate 50 mg tablet,extended release 24 hr 50 mg PO DAILY Blood Pressure 11/03/24
empagliflozin 25 mg tablet (Jardiance) 12.5 mg PO DAILY 12/08/24
prednisone 2.5 mg tablet 17.5 mg PO DAILY 12/08/24
sertraline 100 mg tablet 50 mg PO HS 12/08/24
sitagliptin 100 mg tablet 100 mg PO DAILY 12/08/24
furosemide 40 mg tablet (Lasix) 40 mg PO DAILY 01/15/25
Review of Systems
-
Constitutional: Reports No Symptoms
EENT: Reports No Symptoms
Respiratory: Reports No Symptoms
Cardiac: Reports No Symptoms
Abdomen/GI: Reports No Symptoms
: Reports No Symptoms
Musculoskeletal: Reports Other (Lower back pain)
Skin: Reports No Symptoms
Neurological: Reports No Symptoms
Endocrine: Reports No Symptoms
Hematologic/Lymphatic: Reports No Symptoms
Psych: Reports No Symptoms
Physical Exam
Vital Signs
Vital Signs
Temp Pulse Resp BP Pulse Ox
97.5 F 50 19 124/58 96
01/15/25 16:46 01/15/25 19:00 01/15/25 17:30 01/15/25 19:00 01/15/25 17:45
Physical Exam
General: Well Developed, Well Nourished and No Apparent Distress
HEENT: NormoCephalic, Moist mucous membranes and Atraumatic
Respiratory: Clear
Cardiac: S1/S2 and Regular Rhythm; No Murmur or Rub
GI: Soft, Non Tender, Non Distended and Normal Bowel Sounds; No Organomegaly
Rectal: Deferred by Provider
Musculoskeletal: No Clubbing, No Cyanosis and No Edema
Skin: No Rash
Neuro: AO x 3 and Nonfocal/grossly intact
Psych: Calm
Laboratory Results
-
01/15/25 18:36
01/15/25 18:36
Laboratory Results
Total Bilirubin 0.6 mg/dl (0.2-1.3) 01/15/25 18:36
AST 20 U/L (17-59) 01/15/25 18:36
ALT 15 U/L (0-50) 01/15/25 18:36
Alkaline Phosphatase 51 U/L (38-126) 01/15/25 18:36
Data Reviewed
-
CT Scan: Report Reviewed by me
Lab Data: Labs Reviewed by me
Impression/Plan
-
# Intractable pain/ambulatory dysfunction due to L2 compression fracture
- PT/OT consulted
-Tylenol, lidocaine continued, Oxy and tramadol
-abdominal pelvis CT with There is a new trace superior endplate irregularity of the L2 vertebral body which may represent a developing compression fracture
# Leukocytosis likely stress reaction
- WBC 11.0, patient is afebrile
- Continue to monitor
-obtain UA
# Anemia of chronic disease
- Hemoglobin stable at 10.6
- No active bleeding history-continue to monitor
# CKD stage IIIb creatinine 1.7
- Continue to monitor
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
-Patient not in acute exacerbation
- Lasix continued
- Strict CARLITO, daily weight
#ILD
-Continue prednisone, CellCept, Bactrim
# Essential hypertension
- Lisinopril continue with hold parameters
#Paroxysmal atrial fibrillation
-Continue metoprolol and eliquis
- Obtain EKG
#Rheumatoid arthritis
-Continue prednisone, CellCept, Bactrim
#Type 2 diabetes with neuropathy
- sliding scale insulin
- Jardiance, sitagliptin continued
-Gabapentin continued
#AAA status post repair 04/21/2024
#Hypothyroidism
-Continue Synthroid
#Hyperlipidemia
-Continue statin
# Anxiety
- Sertraline continued
#urinary retention
-bladder scan
#Severe hearing loss
#DVT prophylaxis�Eliquis
#CODE status
-DNR
--- NOTE | 2025-01-15 21:05 | W.PN.UPDATE ---
Update Note
Progress Note Update
Patient seen in conjunction with [facility]. I agree with the physician physical. According to the primary service medicine
Briefly, this 89-year-old with past medical history significant for chronic back pain with known chronic vertebral compression fracture, A-fib on anticoagulation with Eliquis, diabetes, rheumatoid arthritis on CellCept, prednisone prophylactic
Bactrim who presents to the emergency department with exacerbation of his low back pain.
Patient reports that he is approximately 5 days of worsening chronic low back pain. He denies any radiation. He reports that the pain is mostly right-sided. He had some weakness that he came to the emergency department yesterday due to lowered
himself to the floor without falling. Evaluation with a CT scan shows progression of his vertebral compression fracture. He has no radicular findings on history and physical exam. He was discharged. Patient returns today due to ongoing back pain
and weakness. Apparently been prescribed some tramadol for his back pain about 4 days ago but did not receive it yet. Has no fevers or chills. Has no urinary symptoms. There is no bladder or bowel incontinence.
In the emergency department the patient was afebrile, blood pressure was 124/55 with a pulse of 50 and satting 96% on room air.
He has a white count of 11 see hemoglobin and platelets are normal. His electrolytes were all normal. BUN and creatinine were stable with a creatinine of 1.7 similar to prior of 1 around 1.6 although seems to be steadily rising.
Assessment and plan
89-year-old with history of vertebral compression fractures and associated chronic back pain comes in with exacerbation of his lumbago. No radicular findings.
Back pain
- Admit to MedSurg observation
- Pain control with Tylenol, tramadol, lidocaine patch
-Continue gabapentin
- PT OT evaluation
Atrial fibrillation -well rate controlled in the 50s
- Continue anticoagulation with Eliquis
- Continue metoprolol succinate 50 daily
Rheumatoid arthritis
- Continue CellCept and prednisone
- Continue Bactrim prophylaxis
HTN
- Continue with lisinopril 5 mg, Lasix 40 mg daily.
DVT PPX - on apixaban
code status DNR
[2025-01-15 22:00] VITALS: BMI 29.0
[2025-01-15 22:03] VITALS: BP 149/70; BMI 29.0
[2025-01-15 22:31] LABS: Glucose - Point of Care 84 mg/dl (70-99)
[2025-01-15] MEDS: ZOLOFT 50 MG PO (22:43)
[2025-01-15] MEDS: MUCINEX 600 MG PO (22:43)
[2025-01-15] MEDS: AFRIN NASAL SPRAY 2 SPRAYS NASAL (22:43)
[2025-01-15] MEDS: LIDOCAINE 4% PATCH 1 PATCH TOPICAL (22:43)
[2025-01-15] MEDS: SYNTHROID 100 MCG PO (22:43)
[2025-01-15] MEDS: COLACE PO (22:44)
[2025-01-15] MEDS: ELIQUIS PO (22:44)
[2025-01-16] VITALS (8 sets, daily range): BP systolic 108–141; BP diastolic 49–67; BMI 29.0
[2025-01-16] MEDS: ROXICODONE 5 MG PO ×4 (00:24→20:00)
[2025-01-16] MEDS: TUMS CHEWABLE TABLET 200 MG PO (04:26)
--- NOTE | 2025-01-16 06:15 | W.PN.UPDATE ---
Update Note
Progress Note Update
-Pt reported to be coughing up clots and very bloody mucus. Pt felt blood running down back of throat from nose. Hx of previous cauterization of both nostrils. Eliquis dose held for tonight.�Ordered Afrin nasal spray, with good results.�
[2025-01-16 07:39] LABS: Hematocrit 31.7 % (39.0-52.0); Hemoglobin 9.6 g/dL (13.0-18.0); Mean Corp Hgb Conc. 30.3 g/dL (33.0-37.0); Mean Corpuscular Hgb 29.5 pg (27.0-31.0); Mean Corpuscular Volume 97.5 fL (80.0-94.0); Mean Platelet Volume 8.9 fL (7.4-10.4); Platelet Count 156 10^3/uL (130-400); Red Blood Cell Count 3.25 10^6/uL (4.70-6.10); Red Cell Dist. Width 17.2 % (11.5-14.5); White Blood Cell Count 8.7 10^3/uL (4.8-10.8)
[2025-01-16 08:03] LABS: Glucose - Point of Care 92 mg/dl (70-99)
[2025-01-16 08:32] LABS: Blood Urea Nitrogen 38 mg/dl (9-20); Calcium 8.6 mg/dl (8.4-10.2); Carbon Dioxide 26 mmol/L (22-30); Chloride 110 mmol/L (98-107); Estimated Creatinine Clearance 36 ml/min; Glucose 92 mg/dl (70-99); Potassium 4.2 mmol/L (3.5-5.1); Sodium 141 mmol/L (135-145); eGFR 44.78
[2025-01-16] MEDS: NOVOLOG FLEXPEN-LOW RESISTANCE SC (08:35)
[2025-01-16] MEDS: ZESTRIL 5 MG PO (08:59)
[2025-01-16] MEDS: MUCINEX 600 MG PO ×2 (08:59→20:00)
[2025-01-16] MEDS: NEURONTIN 300 MG PO ×2 (08:59→20:00)
[2025-01-16] MEDS: JANUVIA 100 MG PO (09:00)
[2025-01-16] MEDS: FARXIGA 5 MG PO (09:00)
[2025-01-16] MEDS: LASIX 40 MG PO (09:00)
[2025-01-16] MEDS: ELIQUIS 5 MG PO ×2 (09:01→20:00)
[2025-01-16] MEDS: DELTASONE 17.5 MG PO (09:02)
[2025-01-16] MEDS: CELLCEPT 1000 MG PO ×2 (09:03→20:00)
[2025-01-16] MEDS: BACTRIM DS 800 MG/160 MG 1 TABLET PO (09:05)
[2025-01-16] MEDS: NON-FORMULARY ITEM 1 DROP BOTH EYES ×3 (09:07→17:29)
--- NOTE | 2025-01-16 09:13 | W.PN.HOSP.TC ---
Today's Communication/Plan
-
see bold
Assessment / Plan
Assessment / Plan
HPI: 89-year-old with past medical history significant for chronic back pain with known chronic vertebral compression fracture, A-fib on anticoagulation with Eliquis, diabetes, rheumatoid arthritis on CellCept, prednisone prophylactic Bactrim who
presents to the emergency department with exacerbation of his low back pain.
Patient reports that he is approximately 5 days of worsening chronic low back pain. He denies any radiation. He reports that the pain is mostly right-sided. He had some weakness that he came to the emergency department yesterday due to lowered
himself to the floor without falling. Evaluation with a CT scan shows progression of his vertebral compression fracture. He has no radicular findings on history and physical exam. He was discharged. Patient returns today due to ongoing back pain
and weakness. Apparently been prescribed some tramadol for his back pain about 4 days ago but did not receive it yet. Has no fevers or chills. Has no urinary symptoms. There is no bladder or bowel incontinence.
# Intractable pain/ambulatory dysfunction due to L2 compression fracture
Qbdominal pelvis CT with There is a new trace superior endplate irregularity of the L2 vertebral body which may represent a developing compression fracture
Appreciate PT/OT input, recommending short-term rehab, son declines
Continue Tylenol, tramadol, oxycodone as needed, lidocaine patch as scheduled
Recommend following up with orthopedic surgery outpatient for kyphoplasty
Possible discharge tomorrow with improvement in pain
#Epistaxis exacerbated by Eliquis use
01/15 evening dose of Eliquis held
Resolved, continue Afrin
#Leukocytosis likely stress reaction
Resolved without antibiotics, monitor
#Anemia of chronic disease
Hemoglobin near baseline, monitor
#CKD stage IIIb creatinine
Monitor
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
Stable, continue home Lasix, monitor
#ILD
Continue prednisone, CellCept, Bactrim
# Essential hypertension
Continue lisinopril with hold parameters
#Paroxysmal atrial fibrillation
Continue metoprolol and eliquis
Obtain EKG
#Rheumatoid arthritis
Continue prednisone, CellCept, Bactrim
#Type 2 diabetes with neuropathy
Continue Jardiance, sitagliptin, sliding scale insulin
Patient requesting regular diet�ordered
#AAA status post repair 04/21/2024
#Hypothyroidism
Continue Synthroid
#Hyperlipidemia
Continue statin
#Anxiety
Sertraline continued
#Urinary retention
Bladder scan protocol
#Severe hearing loss
#DVT prophylaxis�Eliquis
CODE status -DNR
Updated son on phone 01/16
Total time spent to see the patient on the floor, examine the patient, review data and lab results, discuss treatment plan with patient, nursing staff around 50 minutes.
Physical Exam
General: No acute distress
HEENT: Normocephalic, Atraumatic, EOMI, MMM
Severe hearing loss noted
Respiratory: Clear to auscultation bilaterally
Cardiac: Normal S1/S2, Regular Rate and Rhythm
GI: Soft, Nontender, Nondistended, Normal Bowel Sounds
Extremities: No Clubbing, Cyanosis, or Edema
Neuro: Nonfocal/Grossly Intact
Anticipated Discharge: Within 24 hours
Subjective/Interval History
-
Date of Service: January 16, 2025
Patient's epistaxis has resolved. His back pain is tolerable currently at rest, worse with movement. Denies chest pain, denies shortness of breath. No fever, no vomiting.
Objective Data
-
Labs:
Laboratory Results
01/16/25
07:02
WBC 8.7
Hgb 9.6 L
Hct 31.7 L
Plt Count 156 D
Sodium 141
Potassium 4.2
Chloride 110 H
Carbon Dioxide 26
BUN 38 H
Creatinine 1.5 H
Glucose 92
Calcium 8.6
Vital Signs:
Vital Signs
Temp Pulse Resp BP Pulse Ox
97.9 F 57 18 112/62 95
01/16/25 07:00 01/16/25 07:00 01/16/25 07:00 01/16/25 07:00 01/16/25 07:00
I&O
01/15/25 01/16/25 01/17/25
06:59 06:59 06:59
Intake Total 220 / 220
Balance 220 / 220
[2025-01-16] MEDS: COLACE 200 MG PO ×2 (09:17→19:59)
[2025-01-16 10:06] LABS: Glycohemoglobin (HgbA1c) 6.5 % (4.0-5.6)
[2025-01-16] MEDS: ULTRAM 50 MG PO (11:08)
[2025-01-16 13:01] LABS: Glucose - Point of Care 176 mg/dl (70-99)
[2025-01-16] MEDS: TYLENOL 650 MG PO (13:16)
[2025-01-16] MEDS: NOVOLOG FLEXPEN-LOW RESISTANCE 1 UNITS SC (13:36)
[2025-01-16] MEDS: SENOKOT PO (15:53)
[2025-01-16 17:08] LABS: Glucose - Point of Care 225 mg/dl (70-99)
[2025-01-16] MEDS: CRESTOR 20 MG PO (17:26)
[2025-01-16] MEDS: NOVOLOG FLEXPEN-LOW RESISTANCE 2 UNITS SC (17:27)
--- NOTE | 2025-01-16 17:32 | CM ---
Met with patient to obtain information for assessment. Patient stated that he lives at [facility]. He described himself as independent with his ADLs, personal care, dressing and bathing. He can do things around his apartment
independently. He has a cane, walker, w/c and a scooter. He has had VN in the past. He has also been to a SNF.
OBS letter signed and reviewed, now on chart.
Plan: Case management will continue to follow and assist with discharge planning. Back to [facility].
[2025-01-16] MEDS: SENOKOT 17.2 MG PO (20:00)
[2025-01-16 20:59] LABS: Glucose - Point of Care 169 mg/dl (70-99)
[2025-01-16] MEDS: NON-FORMULARY ITEM 2 DROP BOTH EYES (22:09)
[2025-01-16] MEDS: ZOLOFT 50 MG PO (22:09)
[2025-01-16] MEDS: SYNTHROID 100 MCG PO (22:09)
[2025-01-16] MEDS: LIDOCAINE 4% PATCH TOPICAL (22:14)
[2025-01-17 03:07] VITALS: BP 126/66
[2025-01-17 06:00] VITALS: BMI 28.6
[2025-01-17 07:21] VITALS: BP 119/55
[2025-01-17 07:29] LABS: Glucose - Point of Care 74 mg/dl (70-99)
[2025-01-17] MEDS: NOVOLOG FLEXPEN-LOW RESISTANCE SC ×2 (07:54→13:23)
[2025-01-17] MEDS: SENOKOT 17.2 MG PO (07:59)
[2025-01-17] MEDS: ZESTRIL 5 MG PO (08:00)
[2025-01-17] MEDS: FARXIGA 5 MG PO (08:00)
[2025-01-17] MEDS: COLACE 200 MG PO (08:00)
[2025-01-17] MEDS: MUCINEX 600 MG PO (08:00)
[2025-01-17] MEDS: NEURONTIN 300 MG PO (08:00)
[2025-01-17] MEDS: LASIX 40 MG PO (08:00)
[2025-01-17] MEDS: ELIQUIS 5 MG PO (08:00)
[2025-01-17] MEDS: CELLCEPT 1000 MG PO (08:00)
[2025-01-17] MEDS: DELTASONE 17.5 MG PO (08:00)
[2025-01-17] MEDS: JANUVIA 100 MG PO (08:01)
[2025-01-17] MEDS: NON-FORMULARY ITEM 1 DROP BOTH EYES ×2 (08:01→12:44)
[2025-01-17] MEDS: ROXICODONE 5 MG PO ×2 (08:05→12:43)
--- NOTE | 2025-01-17 08:21 | W.PN.HOSP.TC ---
Today's Communication/Plan
-
Discharge back to assisted living today
Assessment / Plan
Assessment / Plan
HPI: 89-year-old with past medical history significant for chronic back pain with known chronic vertebral compression fracture, A-fib on anticoagulation with Eliquis, diabetes, rheumatoid arthritis on CellCept, prednisone prophylactic Bactrim who
presents to the emergency department with exacerbation of his low back pain.
Patient reports that he is approximately 5 days of worsening chronic low back pain. He denies any radiation. He reports that the pain is mostly right-sided. He had some weakness that he came to the emergency department yesterday due to lowered
himself to the floor without falling. Evaluation with a CT scan shows progression of his vertebral compression fracture. He has no radicular findings on history and physical exam. He was discharged. Patient returns today due to ongoing back pain
and weakness. Apparently been prescribed some tramadol for his back pain about 4 days ago but did not receive it yet. Has no fevers or chills. Has no urinary symptoms. There is no bladder or bowel incontinence.
# Intractable pain/ambulatory dysfunction due to L2 compression fracture
Qbdominal pelvis CT with There is a new trace superior endplate irregularity of the L2 vertebral body which may represent a developing compression fracture
Appreciate PT/OT input, recommending short-term rehab, son declines
Continue Tylenol, tramadol, oxycodone as needed, lidocaine patch as scheduled, laxatives
Recommend following up with orthopedic surgery outpatient for kyphoplasty -has an appointment 01/26/2025
Medically stable for discharge back to assisted living today
#Epistaxis exacerbated by Eliquis use
01/15 evening dose of Eliquis held
Resolved, continue Afrin
#Leukocytosis likely stress reaction
Resolved without antibiotics, monitor
#Anemia of chronic disease
Hemoglobin near baseline, monitor
#CKD stage IIIb creatinine
Monitor
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
Stable, continue home Lasix, monitor
#ILD
Continue prednisone, CellCept, Bactrim
# Essential hypertension
Continue lisinopril with hold parameters
#Paroxysmal atrial fibrillation
Continue metoprolol and eliquis
Obtain EKG
#Rheumatoid arthritis
Continue prednisone, CellCept, Bactrim
#Type 2 diabetes with neuropathy
Continue Jardiance, sitagliptin, sliding scale insulin
Patient requesting regular diet�ordered
#AAA status post repair 04/21/2024
#Hypothyroidism
Continue Synthroid
#Hyperlipidemia
Continue statin
#Anxiety
Sertraline continued
#Urinary retention
Bladder scan protocol
#Severe hearing loss
#DVT prophylaxis�Eliquis
CODE status -DNR
Updated son on phone 01/17
Physical Exam
General: No acute distress
HEENT: Normocephalic, Atraumatic, EOMI, MMM
Severe hearing loss noted
Respiratory: Clear to auscultation bilaterally
Cardiac: Normal S1/S2, Regular Rate and Rhythm
GI: Soft, Nontender, Nondistended, Normal Bowel Sounds
Extremities: No Clubbing, Cyanosis, or Edema
Neuro: Nonfocal/Grossly Intact
Anticipated Discharge: Today
Subjective/Interval History
-
Date of Service: January 17, 2025
Patient reports his pain is tolerable at rest. His pain is severe with movement, and excruciating when getting up from the toilet. No chest pain, no shortness of breath. No fever, no vomiting.
Objective Data
-
Vital Signs:
Vital Signs
Temp Pulse Resp BP Pulse Ox
98.3 F 57 20 119/55 95
01/17/25 07:21 01/17/25 07:59 01/17/25 07:21 01/17/25 07:59 01/17/25 07:21
I&O
01/16/25 01/17/25 01/18/25
06:59 06:59 06:59
Intake Total 220 / 220 700 / 700
Balance 220 / 220 700 / 700
[2025-01-17] MEDS: DELTASONE 20 MG PO (10:23)
--- NOTE | 2025-01-17 10:34 | CM ---
Chart reviewed and patient to return to [facility] today, physical therapy are recommending skilled, however patient has declined skilled placement case preparer and liner offered patent home care and patient has declined home care. Patient's son to transport
patient to home today.
Plan; Home today no needs.
[2025-01-17 12:25] LABS: Glucose - Point of Care 157 mg/dl (70-99)
[2025-01-17 12:28] VITALS: BP 112/61
--- NOTE | 2025-01-17 12:56 | W.DCSUMMARY ---
Discharge Summary
Discharge Data
Date of Admission: 01/15/25
Date of Discharge: 01/17/25
-
Pending Results: No
Hospital Course
Discharge diagnosis:
Acute on chronic intractable back pain secondary to developing lumbar 2 compression fracture
Epistaxis exacerbated by Eliquis use
Stage III chronic kidney disease
Chronic heart failure with mildly reduced ejection fraction
Interstitial lung disease
Paroxysmal atrial fibrillation on Eliquis
Rheumatoid arthritis on prednisone
Type 2 diabetes with neuropathy
Abdominal aortic aneurysm status post repair
CT abdomen and pelvis:
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
Moderate colonic stool burden.
There is a new trace superior endplate irregularity of the L2 vertebral body which may represent a developing compression fracture. Recommend correlation with tenderness and possible MRI for further evaluation.
Similar appearance of the fibrotic changes in the bilateral lower lobes.
Hospital course:
89-year-old male with a past medical history of atrial fibrillation on Eliquis, CKD, CHF, ILD, RA, and diabetes was admitted for acute on chronic intractable back pain secondary to a developing lumbar 2 compression fracture. Patient was treated
with Tylenol, lidocaine patches, tramadol, oxycodone, and laxatives. He was seen in conjunction with PT, who recommended short-term rehab. Patient and son declined. They also declined home visiting nurses/ home PT.
Patient also had mild epistaxis, that was exacerbated by Eliquis use. He was treated with Afrin. His Eliquis dose was held on the evening of 01/15/2025. His epistaxis resolved. He did not have any recurrence of epistaxis.
Patient's pain was tolerable with the above pain regimen. He has been referred to [facility] for outpatient kyphoplasty. He is medically stable for discharge. He needs to follow-up with his primary care doctor in 1 week,
as well as orthopedic surgery in the office.
Disposition: Assisted living, Home self-care, patient/family declined visiting nurses
Discharge planning: Required 39 minutes
Discharge Plan
-
Patient Disposition: Home (Routine Discharge)
Discharge Diagnosis/Procedures: Intractable back pain, developing lumbar vertebral compression fracture
Condition: Fair
Diet: Regular
Activity: As tolerated
Other Services: VN and PT
Activity Restrictions/Additional Instructions:
Follow-up with your primary care doctor in 1 week.
Follow-up with [facility] for possible kyphoplasty.
Referrals:
Jaylin Holguin MD [Family Provider] - in one week
Prescriptions:
New
sennosides [Rosa Maria-tanya] 8.6 mg Tablet
17.2 mg PO BID 30 Days Qty: 120 0RF
lidocaine 4 % Adhesive Patch,Medicated
1 patch topical HS 30 Days Qty: 30 0RF
oxycodone 5 mg Tablet
5 mg PO Q4HPRN PRN (Reason: severe pain) Qty: 60 0RF
Continued
sulfamethoxazole-trimethoprim 800-160 mg Tablet
1 tab PO MOWEFR
mycophenolate mofetil 500 mg Tablet
1,000 mg PO BID
rosuvastatin 20 mg Tablet
20 mg PO QPM
Osteo Bi-Flex Triple Strength 750 mg-644 mg- 30 mg-1 mg Tablet
1 tab PO DAILY
Eliquis 5 mg tablet
5 mg PO BID
gabapentin 300 mg Capsule
300 mg PO BID
acetaminophen 325 mg tablet
650 mg PO Q4HPRN PRN (Reason: mild pain/fever)
guaifenesin 600 mg tablet extended release 12hr
600 mg PO Q12H
benzonatate 100 mg Capsule
100 mg PO TIDPRN PRN (Reason: cough) Qty: 30 0RF
levothyroxine [Synthroid] 100 mcg Tablet
100 mcg PO HS
docusate sodium [Colace] 100 mg Capsule
200 mg PO BID
lisinopril 5 mg Tablet
5 mg PO DAILY
metoprolol succinate 50 mg tablet extended release 24 hr
50 mg PO DAILY
sertraline 100 mg Tablet
50 mg PO HS
prednisone 2.5 mg Tablet
17.5 mg PO DAILY
Jardiance 25 mg Tablet
12.5 mg PO DAILY
sitagliptin 100 mg Tablet
100 mg PO DAILY
furosemide [Lasix] 40 mg Tablet
40 mg PO DAILY
Difuprednate Ophthalmic Emulsion
BOTH EYES 4XD
Rx Instructions:
0.05% solution
Discharge Orders:
Discharge Patient (As Directed); Ordered 01/17/25
Ordered By: Reji Hodges
Discharge Date and Time
Print Language: DANISH
== END 2025-01-17 13:48 | disposition home or self-care (01) ==
LOC: 4 WEST ACU 21:08
PROVIDERS: Physician Assistant; Registered Nurse; ADMITTING PHYSICIAN Internal Medicine; ATTENDING PHYSICIAN Family Medicine; EMERGENCY PHYSICIAN Emergency Medicine; FAMILY PHYSICIAN Internal Medicine
DX: M48.56XA Collapsed vertebra, not elsewhere classified, lumbar region, initial encounter for fracture (principal); R26.2 Difficulty in walking, not elsewhere classified; M54.50 Low back pain, unspecified; R33.9 Retention of urine, unspecified; R20.2 Paresthesia of skin; N18.32 Chronic kidney disease, stage 3b; J84.9 Interstitial pulmonary disease, unspecified; G89.29 Other chronic pain; E11.22 Type 2 diabetes mellitus with diabetic chronic kidney disease; E11.40 Type 2 diabetes mellitus with diabetic neuropathy, unspecified; E11.51 Type 2 diabetes mellitus with diabetic peripheral angiopathy without gangrene; R53.1 Weakness; I13.0 Hypertensive heart and chronic kidney disease with heart failure and stage 1 through stage 4 chronic kidney disease, or unspecified chronic kidney disease; D72.829 Elevated white blood cell count, unspecified; D63.8 Anemia in other chronic diseases classified elsewhere; I50.22 Chronic systolic (congestive) heart failure; E03.9 Hypothyroidism, unspecified; E78.5 Hyperlipidemia, unspecified; I48.0 Paroxysmal atrial fibrillation; H91.90 Unspecified hearing loss, unspecified ear; F41.9 Anxiety disorder, unspecified; R04.0 Epistaxis; D68.32 Hemorrhagic disorder due to extrinsic circulating anticoagulants; M06.9 Rheumatoid arthritis, unspecified; I25.10 Atherosclerotic heart disease of native coronary artery without angina pectoris; I27.20 Pulmonary hypertension, unspecified; Z96.651 Presence of right artificial knee joint; Z79.01 Long term (current) use of anticoagulants; Z79.890 Hormone replacement therapy; Z79.52 Long term (current) use of systemic steroids; Z79.84 Long term (current) use of oral hypoglycemic drugs; Z79.2 Long term (current) use of antibiotics; Z87.891 Personal history of nicotine dependence; Z88.5 Allergy status to narcotic agent; Z79.899 Other long term (current) drug therapy; Z79.624 Long term (current) use of inhibitors of nucleotide synthesis; Z86.79 Personal history of other diseases of the circulatory system; Z66 Do not resuscitate; Z60.2 Problems related to living alone
CPT/HCPCS: 80048; 80053; 82962; 83036; 85027; 87070; 96374; 97163; 97167; 99284; G0378

== ENCOUNTER 2025-01-20 10:04 | Inpatient (IN) | payer MEDICARE, OTHER, SELFPAY ==
[2025-01-19 10:01] VITALS: BP 86/41
--- NOTE | 2025-01-19 10:18 | ED.GENMED ---
History of Present Illness
General
Chief Complaint: Back Pain
Source: patient
Exam Limitations: none
Time Seen by Provider: 01/19/25 10:09
History of Present Illness
History of Present Illness:
See MDM
Past History
Past History
ED Past Medical History: CHF, HTN and Other (Interstitial lung disease)
ED Past Surgical History: Orthopedic (Right knee replacement, kyphoplasty) and Other (Left carotid endarterectomy, aortic aneurysm repair)
Social History
Tobacco: Non-smoker
Alcohol: None
Drug: None
Phy Exam
Physical Exam
Physical Exam:
See MDM
Course
Orders/Labs/Results
Orders:
Orders
01/19/25 10:16
Case Management Consult ONCE
Case Management Consult: Discharge Planning
Diazepam [Valium] 2 mg PO NOW STA
Pt Eval And Treat Urgent
Activity Level: Ambulate
01/19/25 13:19
Complete Blood Count/With Diff Urgent
Comprehensive Metabolic Panel Urgent
Vital Signs
Initial and Last Documented VS:
Initial Vital Signs
Temp Pulse Resp BP Pulse Ox
97.8 F 70 16 86/41 92
01/19/25 10:01 01/19/25 10:01 01/19/25 10:01 01/19/25 10:01 01/19/25 10:01
Last Documented Vital Signs
Temp Pulse Resp BP Pulse Ox
97.8 F 62 20 107/56 97
01/19/25 10:01 01/19/25 12:45 01/19/25 12:45 01/19/25 12:00 01/19/25 12:45
MDM/Problems Addressed
Differential Diagnosis Includes:
HPI and MDM Narrative:
89-year-old male presenting with worsening back pain. He was recently admitted for the same thing. At that time, he declined short-term rehab. Patient was prescribed lidocaine patches and oxycodone. Patient states the pain is uncontrolled. He
denies trouble urinating or rectal numbness. On exam, patient is uncomfortable. He points to the pain which appears to be right posterior pelvic pain. Recent CT shows concern for an L2 fracture.
Given that oxycodone is not helping, we will try Valium with concern for spasms
Will have case management PT reevaluate
Triage note indicated that the blood pressure was low. However, blood pressure has normalized without intervention
Physical exam
General: Mildly uncomfortable
HEENT: protecting airway
Neck: appears supple
CV: No evidence of cyanosis
Resp: No accessory muscle use
Abd: Non-distended
Extremities: No deformities. Bilateral distal legs neurovascular intact
Back: Muscle spasm noted to right posterior pelvis
Neuro: alert
Psych: Normal affect
Skin: Intact
Problems Addressed including Acute and Chronic Conditions affecting care:
1. Back pain
Acuity: acute
Prognosis: stable
Details: Will give dose of Valium
Updates
Patient feeling somewhat better after Valium but pain is still uncontrolled. Will give shot of Dilaudid. Case discussed with case management who suggesting admission. Patient unable to be placed from rehab from the emergency department today
Son at bedside who agrees with plan. Patient has been unable to change the close he was discharged in due to pain. He has been in the same close for 3 days
Differential Diagnosis (but not limited to): Back spasm, pelvic pain, lumbar fracture
Testing considered: Pelvic x-ray
Drug therapy (if applicable): OTC meds, please see d/c instruction regarding Rx drugs
Amount and/or Complexity of Data Reviewed
Clinical info obtained from: Patient
External data reviewed: Recent admission for intractable back pain. Patient declined rehab at that time
Labs I independently reviewed (but not limited to): [ ]
Radiology: N/A
Pulse Ox: not hypoxic
EKG independently reviewed: N/A
Contracts Law Professor: N/A
Critical Care: N/A
Risk of Complication:
Social Determinants of health: Good social support
Discussed with other providers: Case management, hospitalist
Escalation of Care includes Admit/Obs: Given the intractable pain, will admit for pain control
Occasional wrong word or 'sound a like' substitutions may have occurred due to the inherent limitations of voice recognition software. Read the chart carefully and recognize, using context, where substitutions have occurred.
*Critical Care Note
Total Time (30-74mins, 75-104mins- exclusive of procedures): Not Applicable
ED Attending Note
-
Portions of this chart may have been created with voice recognition software.� Occasional wrong word or��sound alike� substitutions may have occurred due to the inherent limitations of voice recognition software.
Discharge Plan
Departure
Patient Disposition: Admit
Date of Disposition: 01/19/25
Time of Disposition: 14:01
Admit to: Med/Surg
Presentation/result/management discussed w/ accepting MD/DO: Hospitalist
Discharge Problem:
Back pain
Prescriptions:
No Action
sulfamethoxazole-trimethoprim 800-160 mg Tablet
1 tab PO MOWEFR
mycophenolate mofetil 500 mg Tablet
1,000 mg PO BID
rosuvastatin 20 mg Tablet
20 mg PO QPM
Osteo Bi-Flex Triple Strength 750 mg-644 mg- 30 mg-1 mg Tablet
1 tab PO DAILY
Eliquis 5 mg tablet
5 mg PO BID
gabapentin 300 mg Capsule
300 mg PO BID
acetaminophen 325 mg tablet
650 mg PO Q4HPRN PRN (Reason: mild pain/fever)
guaifenesin 600 mg tablet extended release 12hr
600 mg PO Q12H
levothyroxine [Synthroid] 100 mcg Tablet
100 mcg PO HS
docusate sodium [Colace] 100 mg Capsule
200 mg PO BID
lisinopril 5 mg Tablet
5 mg PO DAILY
metoprolol succinate 50 mg tablet extended release 24 hr
50 mg PO DAILY
sertraline 100 mg Tablet
50 mg PO HS
prednisone 2.5 mg Tablet
17.5 mg PO DAILY
Jardiance 25 mg Tablet
12.5 mg PO DAILY
sitagliptin 100 mg Tablet
100 mg PO DAILY
furosemide [Lasix] 40 mg Tablet
40 mg PO DAILY
lidocaine 4 % Adhesive Patch,Medicated
1 patch topical HS 30 Days Qty: 30 0RF
oxycodone 5 mg Tablet
5 mg PO Q4HPRN PRN (Reason: severe pain) Qty: 60 0RF
benzonatate 100 mg Capsule
100 mg PO TIDPRN PRN (Reason: cough)
Referrals:
Jaylin Holguin MD [Family Provider] -
Interventions
Interventions:
*Risk Screen - Suicide Last Done: 01/19/25 10:00
*General Assessment Last Done: 01/19/25 10:00
*Neglect/Abuse Screening Last Done: 01/19/25 10:00
*ED- Fall Risk Assessment Last Done: 01/19/25 10:00
ED-Musculoskeletal Assessment Last Done: 01/19/25 10:00
Discharge Date and Time
Print Language: BAHRAINI
[2025-01-19 11:00] VITALS: BP 120/49
[2025-01-19] MEDS: VALIUM 2 MG PO ×2 (11:07)
[2025-01-19 12:00] VITALS: BP 107/56
[2025-01-19 13:04] VITALS: BP 98/58
--- NOTE | 2025-01-19 13:39 | CM ---
Addendum entered by Daria Sauer 01/19/25 16:34:
PT recommends SNF when stable for discharge
Original Note:
Met with his patient and sonLaw at the bedside in the ED; initial assessment and Case Management consult completed
Pharmacy verified: [facility] @ [address] [place] [address]
Family Physician verified, chart updated by Admissions: Dr. Jaylin Holguin MD
Patient resides @ [facility] apartment; bathroom has stall shower, shower chair, grab bar; son, lives nearby
PLOF: at baseline patient reported he was independent with personal care; meals in dining room; powered Scooter used for long distance; Rolling Walker for short distance
Transporation via ambulance
Short stay @ Rehab in [place] last year; [facility] 4 months ago
DME: Glucometer; Oxygen 2.5 liters @ HS; concentrator in the apartment; has portable O2 tank uses PRN
Discharge plan to be determined pending hospital course; CM will monitor and support discharge needs when disposition determined
--- NOTE | 2025-01-19 14:04 | HPS.HSE ---
Family Physician
-
Family Physician: Jaylin Holguin MD
Chief Complaint
-
intractable back pain
History of Present Illness
Patient is 89-year-old male with past medical history significant for hypothyroidism, hypertension, peripheral artery disease, AAA, CKD III, coronary artery disease, paroxysmal a-fib, DM II, HFrEF, pulmonary hypertension, depression/anxiety and
interstitial lung disease who presented to [facility] ED for evaluation of intractable back pain. Patient with recent admission for same complaint. He was found to have a L2 compression fracture and patient refused discharge to rehab, he went home with
oxycodone and has not been controlling the pain. Patients son states that he has been unable to complete some ADLs without assistance related to pain and has been completely independent up to this point. Patient reports that pain has gotten worse
and he did notice yesterday pain radiating down left leg.
Medical History
Past Medical History
Past Medical History: Reports Other
Additional Past Medical History:
hypothyroidism
hypertension
peripheral artery disease
AAA
coronary artery disease
paroxysmal a-fib
HFrEF
rheumatoid arthritis
type 2 diabetes with neuropathy
pulmonary hypertension
interstitial lung disease
depression/anxiety
Past Surgical History: Reports Other
Additional Past Surgical History:
kyphoplasty
left cataract removed
eyelid surgery
cardica cath
Social History
Tobacco: Former Smoker
Alcohol: None
Drug: None
Personal: Single
Living: Assisted Living ([facility] )
Family History
Family History: Not pertinent
Allergies / Home Medications
Allergies reflects when Allergies were last updated in [facility].
Home Medications with original date entered in [facility]
Allergy/Medication List:
Allergies
Allergy/AdvReac Type Severity Reaction Status Date / Time
codeine Allergy Vomiting Verified 01/19/25 10:01
Home Medications
mycophenolate mofetil 500 mg tablet 1,000 mg PO BID interstitial lung disease 03/03/24
rosuvastatin 20 mg tablet 20 mg PO QPM High Cholesterol 03/03/24
sulfamethoxazole 800 mg-trimethoprim 160 mg tablet 1 tab PO MOWEFR Infection prophylaxis 03/03/24
glucosamine 750 [id number] no1 644 mg-C 30 mg-nissa 1 mg tablet (Osteo Bi-Flex Triple Strength) 1 tab PO DAILY Supplement 04/10/24
apixaban 5 mg tablet (Eliquis) 5 mg PO BID AFib 04/19/24
gabapentin 300 mg capsule 300 mg PO BID Pain 06/08/24
acetaminophen 325 mg tablet 650 mg PO Q4HPRN PRN mild pain/fever 08/12/24
guaifenesin 600 mg tablet, extended release 12 hr 600 mg PO Q12H Cough 08/12/24
docusate sodium 100 mg capsule (Colace) 200 mg PO BID Constipation 11/03/24
levothyroxine 100 mcg tablet (Synthroid) 100 mcg PO HS Thyroid 11/03/24
lisinopril 5 mg tablet 5 mg PO DAILY Blood Pressure 11/03/24
metoprolol succinate 50 mg tablet,extended release 24 hr 50 mg PO DAILY Blood Pressure 11/03/24
empagliflozin 25 mg tablet (Jardiance) 12.5 mg PO DAILY Diabetes 12/08/24
prednisone 2.5 mg tablet 17.5 mg PO DAILY Anti-Inflammatory 12/08/24
sertraline 100 mg tablet 50 mg PO HS Depression 12/08/24
sitagliptin 100 mg tablet 100 mg PO DAILY Diabetes 12/08/24
furosemide 40 mg tablet (Lasix) 40 mg PO DAILY Fluid Retention/Swelling 01/15/25
lidocaine 4 % topical patch 1 patch topical HS 30 days #30 ea 01/17/25
oxycodone 5 mg tablet 5 mg PO Q4HPRN PRN severe pain #60 tabs 01/17/25
benzonatate 100 mg capsule 100 mg PO TIDPRN PRN cough 01/19/25
Review of Systems
-
History Source: Patient
Musculoskeletal: Reports Other (right lower back pain that intermittently is radiating down left leg)
Physical Exam
Vital Signs
Vital Signs
Temp Pulse Resp BP Pulse Ox
97.8 F 62 20 107/56 97
01/19/25 10:01 01/19/25 12:45 01/19/25 12:45 01/19/25 12:00 01/19/25 12:45
Physical Exam
General: Well Developed, Well Nourished, No Apparent Distress, Comfortable, Conversant and Obese
HEENT: NormoCephalic, Moist mucous membranes, Atraumatic, [place] Conjunctivae, Nose Appears Normal, Ears Appear Normal and Hearing Impaired
Respiratory: Clear
Cardiac: S1/S2 and Regular Rhythm
Breast: Deferred by me
GI: Soft, Non Tender and Normal Bowel Sounds
Rectal: Deferred by Provider
Genito-urinary: Deferred by me
Musculoskeletal: No Clubbing, No Cyanosis and No Edema
Skin: Warm and IV/Catheter Site
Neuro: Awake, Alert, AO x 3 and Nonfocal/grossly intact
Psych: Calm and Intact Judgment/Insight
Data Reviewed
-
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 Moderate colonic stool burden. There is a new trace superior endplate
irregularity of the L2 vertebral body which may represent a developing compression fracture)
Lab Data: Labs Reviewed by me
Impression/Plan
-
IMPRESSION/PLAN:
#intractable back pain likely 2/2 L2 compression fracture
Abd/Pel CT (01/10/2025): Aortobiiliac endograft with stable size of the excluded aneurysm sac measuring up to 7.1 cm, previously 7.3 cm.
Moderate colonic stool burden.
There is a new trace superior endplate irregularity of the L2 vertebral body which may represent a developing compression fracture. Recommend correlation with tenderness and
possible MRI for further evaluation.
Similar appearance of the fibrotic changes in the bilateral lower lobes.
- Admit to med/surg
- Consult Case management
- Consult PT
- pain regimen
- MRI in AM
#hypothyroidism
- continue levothyroxine
#hypertension
- continue lisinopril and metoprolol
#hyperlipidemia
#coronary artery disease
- continue rosuvastatin
#a-fib
EKG (01/10/2025) : NORMAL SINUS RHYTHM
MINIMAL VOLTAGE CRITERIA FOR LVH, MAY BE NORMAL VARIANT ( R in aVL )
BORDERLINE ECG
- continue Eliquis and metoprolol
#HFrEF
ECHO (06/11/2024): Mildly reduced left ventricle systolic function with an EF of 50%.
Hypokinesis of basal to mid inferior wall.
Mildly enlarged right ventricular size. Normal right ventricular systolic function.
Severe pulmonary hypertension.
Compared to previous echo on 06/08/2024, the findings are similar.
- daily weights
- I & Os
- continue furosemide
#rheumatoid arthritis
- continue prednisone and Bactrim prophylaxis
#type 2 diabetes with neuropathy
A1c (01/16/2025): 6.5
- AccuCheck AC & HS
- SSI
- continue Jardiance and sitagliptin
#interstitial lung disease
- continue mycophenolate
#depression/anxiety
- continue sertraline
#AAA
s/p repair
#pulmonary hypertension
#peripheral artery disease
Code status: DNR
DVT prophylaxis: Eliquis
--- NOTE | 2025-01-19 14:59 | W.PN.UPDATE ---
Update Note
Progress Note Update
HPI: 89-year-old male with past medical history significant for hypothyroidism, hypertension, peripheral artery disease, AAA, CKD III, coronary artery disease, paroxysmal a-fib, DM II, HFrEF, pulmonary hypertension, depression/anxiety, interstitial
lung disease; who presented to ED for evaluation of intractable lower back pain.
Patient with recent admission for same complaint. He was found to have a L2 compression fracture and patient refused discharge to rehab; he went home with oxycodone which has not been controlling the pain. He now c/o radiation down his left leg.
He is also now unable to complete some ADLs without assistance related to pain.
A/P:
# Intractable lower back pain likely 2/2 L2 compression fracture
Check MRI lumbar spine for vertebroplasty eval
PT OPT eval
Cont pain control, will use IV morphine PRN while in the hospital, cover with bowel regimen Senokot-S and Miralax for constipation
# hypothyroidism
Continue levothyroxine
Check TSH reflex FT4
# hypertension
Continue lisinopril and metoprolol
# Hyperlipidemia
# Coronary artery disease
continue rosuvastatin
# Paroxysmal a-fib
continue metoprolol
Holding Eliquis for now in case needing vertebroplasty
# HFrEF
continue MARKETING MGR furosemide, lisinopril, Toprol, Jardiance
# rheumatoid arthritis
Continue MARKETING MGR prednisone and Bactrim prophylaxis
# type 2 diabetes with neuropathy
A1c (01/16/2025): 6.5
AccuCheck AC & HS
SSI
continue Jardiance and sitagliptin
# interstitial lung disease
continue mycophenolate
# depression/anxiety
continue sertraline
# AAA s/p repair
# pulmonary hypertension
# peripheral artery disease
Code status: DNR
DVT prophylaxis: Holding MARKETING M[employer] Eliquis for now in case needing vertebroplasty, cover with HSQ
[2025-01-19 15:31] LABS: % Basophils 0.1 % (0-2); % Eosinophils 0.1 % (0-6); % Immature Granulocytes 0.7 % (0-0.5); % Lymphocytes 5.6 % (20.5-51.1); % Monocytes 5.3 % (1.7-9.3); % Neutrophils 88.2 % (42.2-75.2); Absolute Immature Granulocytes 0.1 10^3/uL (0-0.05); Absolute Lymphocytes 0.5 10^3/uL (1.2-3.4); Absolute Monocytes 0.5 10^3/uL (0.1-0.6); Absolute Neutrophils 8.5 10^3/uL (1.4-6.5); Hematocrit 33.7 % (39.0-52.0); Hemoglobin 10.1 g/dL (13.0-18.0); Mean Corpuscular Hgb 29.6 pg (27.0-31.0); Mean Corpuscular Volume 98.8 fL (80.0-94.0); Nucleated Red Blood Cells % 0 % (-); Platelet Count 177 10^3/uL (130-400); Red Blood Cell Count 3.41 10^6/uL (4.70-6.10); Red Cell Dist. Width 17.2 % (11.5-14.5); White Blood Cell Count 9.7 10^3/uL (4.8-10.8)
[2025-01-19] MEDS: MORPHINE SULFATE 2 MG IV ×2 (15:41→21:08)
[2025-01-19 15:42] LABS: ALT (SGPT) 13 U/L (0-50); AST (SGOT) 19 U/L (17-59); Albumin 3.9 g/dl (3.5-5.0); Alkaline Phosphatase 52 U/L (38-126); Blood Urea Nitrogen 35 mg/dl (9-20); Carbon Dioxide 29 mmol/L (22-30); Chloride 106 mmol/L (98-107); Glucose 145 mg/dl (70-99); Potassium 4.9 mmol/L (3.5-5.1); Sodium 138 mmol/L (135-145); Total Bilirubin 0.6 mg/dl (0.2-1.3); Total Protein 6.3 g/dl (6.3-8.2); eGFR 44.78
[2025-01-19 16:14] LABS: TSH Reflex To Free T4 3.05 uIU/ml (0.47-4.68)
[2025-01-19 17:44] VITALS: BMI 28.8
[2025-01-19 17:45] VITALS: BP 125/83
--- NOTE | 2025-01-19 19:19 | PTCARENOTE ---
Pt received from ED. Walked to bed from ED stretcher with assistance. Pt moaning and groaning in pain. States pain in lower back 04/05. Received IV morphine in ED before transfer to floor. AAOx3, VSS. Pt being inappropriate with this RN during
admission questions, making repeated sexual comments. Call calhoun within reach.
[2025-01-19] MEDS: MIRALAX PO (20:20)
[2025-01-19] MEDS: CRESTOR PO (20:20)
[2025-01-19] MEDS: COLACE 200 MG PO (20:30)
[2025-01-19] MEDS: HEPARIN 5000 UNITS SC (20:30)
[2025-01-19] MEDS: SENOKOT-S 1 TABLET PO (20:30)
[2025-01-19] MEDS: CELLCEPT 1000 MG PO (20:31)
[2025-01-19] MEDS: MUCINEX 600 MG PO (20:31)
[2025-01-19] MEDS: NEURONTIN 300 MG PO (20:31)
[2025-01-19] MEDS: SYNTHROID 100 MCG PO (21:08)
[2025-01-19] MEDS: ZOLOFT 50 MG PO (21:08)
[2025-01-19] MEDS: LIDOCAINE 4% PATCH 1 PATCH TOPICAL (21:10)
[2025-01-19 23:31] VITALS: BP 92/45
[2025-01-20] MEDS: ROXICODONE 5 MG PO ×3 (01:33→11:34)
[2025-01-20 05:49] VITALS: BMI 28.6
[2025-01-20 07:16] VITALS: BP 124/111
[2025-01-20] MEDS: TOPROL XL 50 MG PO (08:32)
[2025-01-20] MEDS: MIRALAX 17 GRAMS PO (08:32)
[2025-01-20] MEDS: NEURONTIN 300 MG PO ×2 (08:32→21:30)
[2025-01-20] MEDS: COLACE 200 MG PO ×2 (08:33→21:30)
[2025-01-20] MEDS: CELLCEPT 1000 MG PO ×2 (08:33→21:30)
[2025-01-20] MEDS: FARXIGA 10 MG PO (08:33)
[2025-01-20] MEDS: MUCINEX 600 MG PO ×2 (08:33→21:29)
[2025-01-20] MEDS: JANUVIA 100 MG PO (08:33)
[2025-01-20] MEDS: SENOKOT-S 1 TABLET PO ×2 (08:34→21:30)
[2025-01-20] MEDS: DELTASONE 10 MG PO (08:34)
[2025-01-20] MEDS: ZESTRIL 5 MG PO (08:34)
[2025-01-20] MEDS: LASIX 40 MG PO (08:34)
[2025-01-20] MEDS: DELTASONE 7.5 MG PO (08:35)
[2025-01-20] MEDS: HEPARIN 5000 UNITS SC ×2 (08:35→21:30)
--- NOTE | 2025-01-20 09:30 | CM ---
Addendum entered by Katiuska Blank RN 01/21/25 08:51:
UR RN notified pt changed to inpatient . IMM explained signed on chart.
Original Note:
Pt living at assisted living [facility].
Pt has home oxygen prn.
PT recommends SNF.
Requested OT order form .
Pt is under observation HARMON letter given and explained.
PLAN: Discharge planning on going
--- NOTE | 2025-01-20 09:54 | W.PN.HOSP.TC ---
Today's Communication/Plan
-
see A/P
Assessment / Plan
Assessment / Plan
HPI: 89-year-old male with past medical history significant for hypothyroidism, hypertension, peripheral artery disease, AAA, CKD III, coronary artery disease, paroxysmal a-fib, DM II, HFrEF, pulmonary hypertension, depression/anxiety, interstitial
lung disease; who presented to ED for evaluation of intractable lower back pain.
Patient with recent admission for same complaint. He was found to have a L2 compression fracture and patient refused discharge to rehab; he went home with oxycodone which has not been controlling the pain. He now c/o radiation down his left leg.
He is also now unable to complete some ADLs without assistance related to pain.
A/P:
# Intractable lower back pain likely 2/2 L2 compression fracture
Check MRI lumbar spine for vertebroplasty eval
PT OT eval
Cont pain control, IV morphine PRN while in the hospital, cover with bowel regimen Senokot-S and Miralax for constipation
# hypothyroidism
Continue levothyroxine
TSH 3.05
# hypertension
Continue lisinopril and metoprolol
BP stable
# Hyperlipidemia
# Coronary artery disease
continue rosuvastatin
# Paroxysmal a-fib
continue metoprolol
Holding Eliquis for now in case needing vertebroplasty
# HFrEF
continue [employer] OFFICE ASSOCIATE furosemide, lisinopril, Toprol, Jardiance
# rheumatoid arthritis
Continue FR[employer] OFFICE ASSOCIATE prednisone and Bactrim prophylaxis
# type 2 diabetes with neuropathy
A1c (01/16/2025): 6.5
AccuCheck AC & HS
SSI
continue Jardiance and sitagliptin
# interstitial lung disease
continue mycophenolate
# depression/anxiety
continue sertraline
# AAA s/p repair
# pulmonary hypertension
# peripheral artery disease
Code status: DNR
DVT prophylaxis: Holding [employer] OFFICE ASSOCIATE Eliquis for now in case needing vertebroplasty, cover with HSQ
DW CM
Anticipated Discharge: 24 - 48 hours
Subjective/Interval History
-
Date of Service: January 20, 2025
Objective Data
-
Vital Signs:
Vital Signs
Temp Pulse Resp BP Pulse Ox
36.7 C 60 17 124/111 92
01/20/25 07:16 01/20/25 08:32 01/20/25 07:16 01/20/25 08:32 01/20/25 07:16
I&O
01/19/25 01/20/25 01/21/25
06:59 06:59 06:59
Intake Total 1080 / 1080
Balance 1080 / 1080
Review of Systems
-
Musculoskeletal: Reports Other (lower back pain)
Physical Exam
-
General: Well Developed, Well Nourished, No Apparent Distress and Conversant
HEENT: Normocephalic
Respiratory: Clear to Auscultation and Non Labored Respirations; Negative Accessory Resp Muscle Use
Cardiac: Regular Rhythm and S1/S2
GI: Soft, Nontender and Nondistended
Skin: Warm
Neuro: Awake and Alert
Psych: Calm and Intact Judgement/Insight
Data Reviewed
-
Labs: Labs Reviewed by me
[2025-01-20 12:33] VITALS: BP 124/54; PULSE 55; O2SAT 96
[2025-01-20 12:37] VITALS: BP 124/54; PULSE 61; O2SAT 96
[2025-01-20 14:59] VITALS: BP 113/57
[2025-01-20] MEDS: CRESTOR 20 MG PO (18:28)
[2025-01-20] MEDS: MORPHINE SULFATE 2 MG IV (21:24)
[2025-01-20] MEDS: ZOLOFT 50 MG PO (21:30)
[2025-01-20] MEDS: SYNTHROID 100 MCG PO (21:30)
[2025-01-20] MEDS: LIDOCAINE 4% PATCH 1 PATCH TOPICAL (21:31)
[2025-01-20 23:00] VITALS: BP 112/61
[2025-01-21] MEDS: ROXICODONE 5 MG PO ×2 (00:58→11:24)
[2025-01-21 01:02] LABS: Glucose - Point of Care 209 mg/dl (70-99)
[2025-01-21 05:16] VITALS: BMI 28.7
[2025-01-21 05:28] LABS: Hematocrit 32.5 % (39.0-52.0); Hemoglobin 9.9 g/dL (13.0-18.0); Mean Corp Hgb Conc. 30.5 g/dL (33.0-37.0); Mean Corpuscular Hgb 30.2 pg (27.0-31.0); Mean Corpuscular Volume 99.1 fL (80.0-94.0); Mean Platelet Volume 9.6 fL (7.4-10.4); Platelet Count 203 10^3/uL (130-400); Red Blood Cell Count 3.28 10^6/uL (4.70-6.10); Red Cell Dist. Width 17.2 % (11.5-14.5); White Blood Cell Count 8.4 10^3/uL (4.8-10.8)
[2025-01-21 05:59] LABS: Calcium 8.8 mg/dl (8.4-10.2); Carbon Dioxide 28 mmol/L (22-30); Estimated Creatinine Clearance 34 ml/min; Glucose 141 mg/dl (70-99); Magnesium 3.2 mg/dl (1.6-2.3); eGFR 41.44
[2025-01-21 06:07] LABS: Blood Urea Nitrogen 41 mg/dl (9-20); Chloride 107 mmol/L (98-107); Potassium 4.8 mmol/L (3.5-5.1); Sodium 140 mmol/L (135-145)
[2025-01-21 07:28] LABS: Glucose - Point of Care 120 mg/dl (70-99)
[2025-01-21] MEDS: NOVOLOG FLEXPEN-LOW RESISTANCE SC ×3 (07:34→17:12)
[2025-01-21 07:36] VITALS: BP 133/61
[2025-01-21 07:49] VITALS: BMI 29.3
[2025-01-21] MEDS: CELLCEPT 1000 MG PO ×2 (09:07→20:49)
[2025-01-21] MEDS: BACTRIM DS 800 MG/160 MG 1 TABLET PO (09:07)
[2025-01-21] MEDS: DELTASONE 10 MG PO (09:07)
[2025-01-21] MEDS: MIRALAX 17 GRAMS PO (09:07)
[2025-01-21] MEDS: NEURONTIN 300 MG PO ×2 (09:07→20:50)
[2025-01-21] MEDS: COLACE 200 MG PO ×2 (09:09→20:47)
[2025-01-21] MEDS: DELTASONE 7.5 MG PO (09:09)
[2025-01-21] MEDS: LASIX 40 MG PO (09:10)
[2025-01-21] MEDS: ZESTRIL 5 MG PO (09:10)
[2025-01-21] MEDS: FARXIGA 10 MG PO (09:10)
[2025-01-21] MEDS: SENOKOT-S 1 TABLET PO ×2 (09:10→20:47)
[2025-01-21] MEDS: JANUVIA 100 MG PO (09:10)
[2025-01-21] MEDS: MUCINEX 600 MG PO ×2 (09:11→20:51)
[2025-01-21] MEDS: HEPARIN 5000 UNITS SC ×2 (09:11→20:51)
[2025-01-21] MEDS: TOPROL XL 50 MG PO (09:21)
[2025-01-21] MEDS: DULCOLAX 10 MG RECTAL (10:01)
--- NOTE | 2025-01-21 10:33 | W.PN.HOSP.TC ---
Today's Communication/Plan
-
see AP
Assessment / Plan
Assessment / Plan
HPI: 89-year-old male with past medical history significant for hypothyroidism, hypertension, peripheral artery disease, AAA, CKD III, coronary artery disease, paroxysmal a-fib, DM II, HFrEF, pulmonary hypertension, depression/anxiety, interstitial
lung disease; who presented to ED for evaluation of intractable lower back pain.
Patient with recent admission for same complaint. He was found to have a L2 compression fracture and patient refused discharge to rehab; he went home with oxycodone which has not been controlling the pain. He now c/o radiation down his left leg.
He is also now unable to complete some ADLs without assistance related to pain.
A/P:
# Intractable lower back pain likely 2/2 L2 compression fracture
MRI lumbar spine showed mild acute superior plate compression deformity of L2. Findings suspicious for incomplete/partial insufficiency fracture at S2-3. Stable chronic compression deformity of L3, status post vertebroplasty. Mild chronic superior
endplate compression deformity of L4.
IRAD CS for vertebroplasty eval in setting of severe intractable lower back pain
PT OT eval
Cont pain control, IV morphine PRN while in the hospital, cover with bowel regimen Senokot-S and Miralax for constipation
# hypothyroidism
Continue levothyroxine
TSH 3.05
# hypertension
Continue lisinopril and metoprolol
BP stable
# Hyperlipidemia
# Coronary artery disease
continue rosuvastatin
# Paroxysmal a-fib
continue metoprolol
Holding Eliquis for now in case needing vertebroplasty
# HFrEF
continue [employer] furosemide, lisinopril, Toprol, Jardiance
# rheumatoid arthritis
Continue [employer] prednisone and Bactrim prophylaxis
# type 2 diabetes with neuropathy
A1c (01/16/2025): 6.5
AccuCheck AC & HS
SSI
continue Jardiance and sitagliptin
# interstitial lung disease
continue mycophenolate
# depression/anxiety
continue sertraline
# AAA s/p repair
# pulmonary hypertension
# peripheral artery disease
Code status: DNR
DVT prophylaxis: Holding [employer] Eliquis anticipating vertebroplasty, cover with HSQ for now
DW RN
Anticipated Discharge: 24 - 48 hours
Subjective/Interval History
-
Date of Service: January 21, 2025
Objective Data
-
Labs:
Laboratory Results
01/21/25
05:06
WBC 8.4
Hgb 9.9 L
Hct 32.5 L
Plt Count 203
Sodium 140
Potassium 4.8
Chloride 107
Carbon Dioxide 28
BUN 41 H
Creatinine 1.6 H
Glucose 141 H
Calcium 8.8
Vital Signs:
Vital Signs
Temp Pulse Resp BP Pulse Ox
36.6 C 65 18 133/61 94
01/21/25 07:36 01/21/25 09:10 01/21/25 07:36 01/21/25 09:10 01/21/25 07:36
I&O
01/20/25 01/21/25 01/22/25
06:59 06:59 06:59
Intake Total 1080 / 1080 1140 / 1140
Balance 1080 / 1080 1140 / 1140
Review of Systems
-
History Source: Patient
Musculoskeletal: Reports Other (lower back pain)
Physical Exam
-
General: Well Developed, Well Nourished, No Apparent Distress, Comfortable and Conversant
HEENT: Normocephalic
Respiratory: Clear to Auscultation and Non Labored Respirations; Negative Accessory Resp Muscle Use
Cardiac: Regular Rhythm and S1/S2
GI: Soft, Nontender and Nondistended
Skin: Warm
Neuro: Awake and Alert
Psych: Calm and Intact Judgement/Insight
Data Reviewed
-
MRI: Report Reviewed by me and Discussed with Patient
Labs: Labs Reviewed by me
--- NOTE | 2025-01-21 10:55 | W.PN.GENERIC ---
Assessment / Plan
-
This is a pleasant 89-year-old male with symptomatic compression fractures. The symptoms are interfering with his activities of daily living. We discussed treatment options including conservative management with brace and pain medication, ALEXIA
injection and vertebral augmentation. He has no comorbidities that would interfere with planned treatment. I believe he should be a good candidate for vertebral augmentation.
I discussed the technique of vertebral body augmentation including the logistics, risks and benefits, success and failure rates as well as alternatives. Risks include but are not limited to: incomplete treatment, need for surgery, infection, abscess
formation, spinal cord injury and paralysis.� We discussed the probability of outcomes and the length of convalescence post procedure.� The procedure will be performed with anesthesia support.
The procedure can be performed early next week. He will need to hold his Eliquis before the procedure
I spent over one hour in counseling and coordination of care with the patient, reviewing previous medical records, laboratory studies and all relevant imaging, including history taking, physical exam and documentation as well as discussing the
procedure and expected outcome with the patient and his son Law, via telephone.
Physician Progress Note
Subjective
Interventional Radiology Consult
DX: Intractable Back Pain/L2 compression fracture
Requesting: Dr. Carla Reynoso
This is an 89-year-old male with past medical history significant for hypothyroidism, hypertension, peripheral artery disease, AAA, CKD III, coronary artery disease, paroxysmal a-fib, DM II, HFrEF, pulmonary hypertension, depression/anxiety and
interstitial lung disease who was admitted for iintractable back pain. He was recently admitted for te same complaint and was found to have an L2 compression fracture. He was offered admission to a rehab facility but wanted to go home with pain
medication. He was discharged on oxycodone which is not controlling the pain. According to his son, he is unable to complete some ADLs without assistance related to pain. Prior to this he has been completely independent. The patient reports that
the pain has gotten worse and is now radiating around the right hip/flank area. He denies worsening paresthesias or weakness. No loss of bowel or bladder control
Medical History
Past Medical History
hypothyroidism
hypertension
peripheral artery disease
AAA
coronary artery disease
paroxysmal a-fib
HFrEF
rheumatoid arthritis
type 2 diabetes with neuropathy
pulmonary hypertension
interstitial lung disease
depression/anxiety
Past Surgical History:
kyphoplasty
left cataract removed
eyelid surgery
cardicac cath
Social History
Tobacco: Former Smoker
Alcohol: None
Drug: None
Personal: Single
Living: Assisted Living ([facility] )
Allergies
Allergy/AdvReac Type Severity Reaction Status Date / Time
codeine Allergy Vomiting Verified 01/19/25 10:01
Home Medications:
The patients medicatiosn were documented and reveiwed at the time of this consult including medication name, dosage, frequency and route of administration
mycophenolate mofetil 500 mg tablet 1,000 mg PO BID interstitial lung disease 03/03/24, rosuvastatin 20 mg tablet 20 mg PO QPM High Cholesterol 03/03/24, sulfamethoxazole 800 mg-trimethoprim 160 mg tablet 1 tab PO MOWEFR Infection prophylaxis
03/03/24, glucosamine 750 in-fowacrwslyn-jcy no1 644 mg-C 30 mg-nissa 1 mg tablet (Osteo Bi-Flex Triple Strength) 1 tab PO DAILY Supplement 04/10/24, apixaban 5 mg tablet (Eliquis) 5 mg PO BID AFib 04/19/24, gabapentin 300 mg capsule 300 mg PO BID
Pain 06/08/24, acetaminophen 325 mg tablet 650 mg PO Q4HPRN PRN mild pain/fever 08/12/24, guaifenesin 600 mg tablet, extended release 12 hr 600 mg PO Q12H Cough 08/12/24, docusate sodium 100 mg capsule (Colace) 200 mg PO BID Constipation 11/03/24,
levothyroxine 100 mcg tablet (Synthroid) 100 mcg PO HS Thyroid 11/03/24, lisinopril 5 mg tablet 5 mg PO DAILY Blood Pressure 11/03/24, metoprolol succinate 50 mg tablet,extended release 24 hr 50 mg PO DAILY Blood Pressure 11/03/24, empagliflozin 25
mg tablet (Jardiance) 12.5 mg PO DAILY Diabetes 12/08/24, prednisone 2.5 mg tablet 17.5 mg PO DAILY Anti-Inflammatory 12/08/24, sertraline 100 mg tablet 50 mg PO HS Depression 12/08/24, sitagliptin 100 mg tablet 100 mg PO DAILY Diabetes 12/08/24,
furosemide 40 mg tablet (Lasix) 40 mg PO DAILY Fluid Retention/Swelling 01/15/25, lidocaine 4 % topical patch 1 patch topical HS 30 days #30 ea 01/17/25, oxycodone 5 mg tablet 5 mg PO Q4HPRN PRN severe pain #60 tabs 01/17/25, benzonatate 100 mg
capsule 100 mg PO TIDPRN PRN cough 01/19/25
Objective
Vital Signs
Temp Pulse Resp BP Pulse Ox
97.9 F 65 18 133/61 94
01/21/25 07:36 01/21/25 09:10 01/21/25 07:36 01/21/25 09:10 01/21/25 07:36
Lab Results
01/21/25 05:06
01/21/25 05:06
This is a WNWD hearing impaired 89 yo male in [facility]. Color is good. Skin is warm and dry. Neck is supple. Heart is regular. Lungs are CTA. Abdomen is soft, round and notender with bowel sounds. TTP over the upper lumbar spine and right paralumbar
muscle.
[2025-01-21 11:59] LABS: Glucose - Point of Care 130 mg/dl (70-99)
[2025-01-21 16:01] VITALS: BP 136/65
[2025-01-21 16:24] LABS: Glucose - Point of Care 112 mg/dl (70-99)
--- NOTE | 2025-01-21 16:42 | DOWNTIME ---
There was a [employer] Downtime on 01/21/2025 from 1230 to 01/21/2025 at 1550. Downtime documentation of patient's care, including medication administrations, has been reconciled in the electronic record per guidelines. Refer to the
patient's paper chart under the miscellaneous tab to see printed paper medication records and downtime forms.
[2025-01-21] MEDS: CRESTOR 20 MG PO (17:12)
--- NOTE | 2025-01-21 17:21 | CM ---
Spoke with son Law reviewed PT . He requested pt return to [facility].
Called [facility] spoke with Alanis but was disconnected and LM no call back .
Contact [facility] and confirm return .
Will offer VN .
PLAN Return to [facility]
[2025-01-21] MEDS: CITROMA 300 ML PO (18:29)
[2025-01-21] MEDS: TUMS CHEWABLE TABLET 200 MG PO (20:09)
[2025-01-21] MEDS: SYNTHROID 100 MCG PO (20:48)
[2025-01-21] MEDS: LIDOCAINE 4% PATCH 1 PATCH TOPICAL (20:48)
[2025-01-21] MEDS: ZOLOFT 50 MG PO (20:50)
[2025-01-21 21:29] LABS: Glucose - Point of Care 181 mg/dl (70-99)
[2025-01-21 23:00] VITALS: BP 131/66
[2025-01-21] MEDS: MORPHINE SULFATE 2 MG IV (23:10)
--- NOTE | 2025-01-21 23:30 | PTCARENOTE ---
Patient c/o nausea from Mag Citrate. Patient advised to stop drinking Mag Citrate as it has given him heart burn and now c/o nausea. Order for Leticiafran obtained from TOM Roblero. Medication effective. Patient continues to pass flatus and has
normoactive bowel sounds in all 4 quadrants. No BM. Will continue to monitor.
[2025-01-22] MEDS: ZOFRAN 4 MG IV (00:13)
[2025-01-22] MEDS: ROXICODONE 5 MG PO ×3 (00:58→22:00)
[2025-01-22 05:37] LABS: Hematocrit 32.1 % (39.0-52.0); Hemoglobin 9.4 g/dL (13.0-18.0); Mean Corp Hgb Conc. 29.3 g/dL (33.0-37.0); Mean Corpuscular Hgb 29.5 pg (27.0-31.0); Mean Corpuscular Volume 100.6 fL (80.0-94.0); Mean Platelet Volume 9.3 fL (7.4-10.4); Platelet Count 200 10^3/uL (130-400); Red Blood Cell Count 3.19 10^6/uL (4.70-6.10); White Blood Cell Count 8.8 10^3/uL (4.8-10.8)
[2025-01-22 05:40] VITALS: BMI 29.3
[2025-01-22 06:17] LABS: Blood Urea Nitrogen 38 mg/dl (9-20); Calcium 8.7 mg/dl (8.4-10.2); Carbon Dioxide 29 mmol/L (22-30); Chloride 106 mmol/L (98-107); Estimated Creatinine Clearance 34 ml/min; Glucose 135 mg/dl (70-99); Potassium 3.8 mmol/L (3.5-5.1); Sodium 142 mmol/L (135-145); eGFR 41.44
[2025-01-22 07:22] VITALS: BP 129/60
[2025-01-22 07:32] LABS: Glucose - Point of Care 115 mg/dl (70-99)
[2025-01-22] MEDS: NOVOLOG FLEXPEN-LOW RESISTANCE SC ×2 (07:42→12:04)
[2025-01-22] MEDS: MIRALAX 17 GRAMS PO (08:38)
[2025-01-22] MEDS: COLACE 200 MG PO ×2 (08:39→21:28)
[2025-01-22] MEDS: CELLCEPT 1000 MG PO ×2 (08:39→21:28)
[2025-01-22] MEDS: NEURONTIN 300 MG PO ×2 (08:39→21:40)
[2025-01-22] MEDS: MUCINEX 600 MG PO ×2 (08:40→21:40)
[2025-01-22] MEDS: SENOKOT-S 1 TABLET PO ×2 (08:40→21:41)
[2025-01-22] MEDS: ZESTRIL 5 MG PO (08:40)
[2025-01-22] MEDS: DELTASONE 7.5 MG PO (08:40)
[2025-01-22] MEDS: FARXIGA 10 MG PO (08:40)
[2025-01-22] MEDS: JANUVIA 100 MG PO (08:41)
[2025-01-22] MEDS: LASIX 40 MG PO (08:41)
[2025-01-22] MEDS: TOPROL XL 50 MG PO (08:41)
[2025-01-22] MEDS: HEPARIN 5000 UNITS SC ×2 (08:42→21:29)
[2025-01-22] MEDS: DELTASONE 10 MG PO (08:43)
--- NOTE | 2025-01-22 10:45 | W.PN.HOSP.TC ---
Today's Communication/Plan
-
see A/P
Assessment / Plan
Assessment / Plan
HPI: 89-year-old male with past medical history significant for hypothyroidism, hypertension, peripheral artery disease, AAA, CKD III, coronary artery disease, paroxysmal a-fib, DM II, HFrEF, pulmonary hypertension, depression/anxiety, interstitial
lung disease; who presented to ED for evaluation of intractable lower back pain.
Patient with recent admission for same complaint. He was found to have a L2 compression fracture and patient refused discharge to rehab; he went home with oxycodone which has not been controlling the pain. He now c/o radiation down his left leg.
He is also now unable to complete some ADLs without assistance related to pain.
A/P:
# Intractable lower back pain likely 2/2 L2 compression fracture
MRI lumbar spine showed mild acute superior plate compression deformity of L2. Findings suspicious for incomplete/partial insufficiency fracture at S2-3. Stable chronic compression deformity of L3, status post vertebroplasty. Mild chronic superior
endplate compression deformity of L4.
appreciate IRAD input, agree with vertebroplasty for severe intractable lower back pain, plan for Friday 01/26
PT OT eval
Cont pain control, IV morphine PRN while in the hospital, cover with bowel regimen Senokot-S and Miralax for constipation
# ?Acute urinary retention
MRI r/o spinal cord involvement
monitor with bladder scan and straight cath PRN
Start Flomax
# hypothyroidism
Continue levothyroxine
TSH 3.05
# hypertension
Continue lisinopril and metoprolol
BP stable
# Hyperlipidemia
# Coronary artery disease
continue rosuvastatin
# Paroxysmal a-fib
continue metoprolol
Holding Eliquis for now in case needing vertebroplasty
# HFrEF
continue LAMINATING PRESS OPERATOR furosemide, lisinopril, Toprol, Jardiance
# rheumatoid arthritis
Continue LAMINATING PRESS OPERATOR prednisone and Bactrim prophylaxis
# type 2 diabetes with neuropathy
A1c (01/16/2025): 6.5
AccuCheck AC & HS
SSI
continue Jardiance and sitagliptin
# interstitial lung disease
continue mycophenolate
# depression/anxiety
continue sertraline
# AAA s/p repair
# pulmonary hypertension
# peripheral artery disease
Code status: DNR
DVT prophylaxis: Holding LAMINATING PRESS OPERATOR Eliquis prior to vertebroplasty, cover with HSQ for now
DW IR team
XIAO RN
Updated son on the phone
total time 51 min
Anticipated Discharge: > 48 hours
Subjective/Interval History
-
Date of Service: January 22, 2025
Objective Data
-
Labs:
Laboratory Results
01/22/25
05:00
WBC 8.8
Hgb 9.4 L
Hct 32.1 L
Plt Count 200
Sodium 142
Potassium 3.8
Chloride 106
Carbon Dioxide 29
BUN 38 H
Creatinine 1.6 H
Glucose 135 H
Calcium 8.7
Vital Signs:
Vital Signs
Temp Pulse Resp BP Pulse Ox
36.7 C 52 17 129/60 96
01/22/25 07:22 01/22/25 08:40 01/22/25 07:22 01/22/25 08:40 01/22/25 07:22
I&O
01/21/25 01/22/25 01/23/25
06:59 06:59 06:59
Intake Total 1140 / 1140 1920 / 1920
Output Total 650 / 650
Balance 1140 / 1140 1270 / 1270
Review of Systems
-
History Source: Patient
Genitourinary: Reports Other (urinary retension )
Musculoskeletal: Reports Other (lower back pain)
Physical Exam
-
General: Well Developed, Well Nourished, No Apparent Distress, Comfortable and Conversant
HEENT: Normocephalic and Atraumatic
Respiratory: Clear to Auscultation and Non Labored Respirations; Negative Accessory Resp Muscle Use
Cardiac: Regular Rhythm and S1/S2
GI: Soft, Nontender and Nondistended
Skin: Warm
Neuro: Awake and Alert
Psych: Calm and Intact Judgement/Insight
Data Reviewed
-
MRI: Report Reviewed by me and Discussed with Patient
Labs: Labs Reviewed by me
[2025-01-22 11:55] LABS: Glucose - Point of Care 137 mg/dl (70-99)
[2025-01-22] MEDS: FLOMAX 0.4 MG PO (12:04)
[2025-01-22 15:03] VITALS: BP 112/62
[2025-01-22 16:42] LABS: Glucose - Point of Care 158 mg/dl (70-99)
[2025-01-22] MEDS: CRESTOR 20 MG PO (18:03)
[2025-01-22] MEDS: NOVOLOG FLEXPEN-LOW RESISTANCE 1 UNITS SC (18:03)
[2025-01-22 20:27] LABS: Glucose - Point of Care 185 mg/dl (70-99)
[2025-01-22] MEDS: ZOLOFT 50 MG PO (21:41)
[2025-01-22] MEDS: SYNTHROID 100 MCG PO (21:42)
[2025-01-22] MEDS: LIDOCAINE 4% PATCH 1 PATCH TOPICAL (21:42)
[2025-01-22 21:55] VITALS: BP 129/57
[2025-01-22] MEDS: TUMS CHEWABLE TABLET 200 MG PO (22:03)
[2025-01-23] VITALS (8 sets, daily range): BP systolic 95–119; BP diastolic 46–75; PULSE 56–64; O2SAT 94; BMI 28.6
[2025-01-23] MEDS: ROXICODONE 5 MG PO ×3 (03:24→16:52)
[2025-01-23] MEDS: TUMS CHEWABLE TABLET 200 MG PO (03:25)
[2025-01-23 05:39] LABS: Hematocrit 31.7 % (39.0-52.0); Hemoglobin 9.4 g/dL (13.0-18.0); Mean Corp Hgb Conc. 29.7 g/dL (33.0-37.0); Mean Corpuscular Hgb 29.6 pg (27.0-31.0); Mean Corpuscular Volume 99.7 fL (80.0-94.0); Mean Platelet Volume 9.8 fL (7.4-10.4); Platelet Count 196 10^3/uL (130-400); Red Blood Cell Count 3.18 10^6/uL (4.70-6.10); Red Cell Dist. Width 17.2 % (11.5-14.5); White Blood Cell Count 9.8 10^3/uL (4.8-10.8)
[2025-01-23 06:11] LABS: Blood Urea Nitrogen 39 mg/dl (9-20); Calcium 8.8 mg/dl (8.4-10.2); Carbon Dioxide 27 mmol/L (22-30); Chloride 108 mmol/L (98-107); Estimated Creatinine Clearance 36 ml/min; Glucose 98 mg/dl (70-99); Potassium 4.3 mmol/L (3.5-5.1); Sodium 141 mmol/L (135-145); eGFR 44.78
[2025-01-23 07:46] LABS: Glucose - Point of Care 84 mg/dl (70-99)
[2025-01-23] MEDS: TOPROL XL 50 MG PO (08:02)
[2025-01-23] MEDS: FLOMAX 0.4 MG PO (08:02)
[2025-01-23] MEDS: MUCINEX 600 MG PO ×2 (08:02→20:08)
[2025-01-23] MEDS: DELTASONE 10 MG PO (08:03)
[2025-01-23] MEDS: LASIX 40 MG PO (08:03)
[2025-01-23] MEDS: JANUVIA 100 MG PO (08:03)
[2025-01-23] MEDS: FARXIGA 10 MG PO (08:03)
[2025-01-23] MEDS: HEPARIN 5000 UNITS SC ×2 (08:03→20:09)
[2025-01-23] MEDS: SENOKOT-S 1 TABLET PO ×2 (08:04→20:08)
[2025-01-23] MEDS: NEURONTIN 300 MG PO ×2 (08:04→20:08)
[2025-01-23] MEDS: DELTASONE 7.5 MG PO (08:04)
[2025-01-23] MEDS: CELLCEPT 1000 MG PO ×2 (08:04→20:08)
[2025-01-23] MEDS: COLACE 200 MG PO ×2 (08:05→20:07)
[2025-01-23] MEDS: ZESTRIL 5 MG PO (08:05)
[2025-01-23] MEDS: BACTRIM DS 800 MG/160 MG 1 TABLET PO (08:05)
--- NOTE | 2025-01-23 09:15 | CM ---
Pt scheduled for vertebroplasty 01/26/25.
Continue with pain meds prn.
Encourage pt to continue with PT OT evals
Son Law reviewed PT . He requested pt return to [facility] under personal care.
Will need to review PT OT post procedure with [facility] for dc planning.
PLAN Probable return to [facility] personal care
[2025-01-23] MEDS: MIRALAX 17 GRAMS PO (09:47)
[2025-01-23] MEDS: NOVOLOG FLEXPEN-LOW RESISTANCE SC ×2 (09:47→18:40)
--- NOTE | 2025-01-23 10:58 | W.PN.HOSP.TC ---
Today's Communication/Plan
-
see A/P
Assessment / Plan
Assessment / Plan
HPI: 89-year-old male with past medical history significant for hypothyroidism, hypertension, peripheral artery disease, AAA, CKD III, coronary artery disease, paroxysmal a-fib, DM II, HFrEF, pulmonary hypertension, depression/anxiety, interstitial
lung disease; who presented to ED for evaluation of intractable lower back pain.
Patient with recent admission for same complaint. He was found to have a L2 compression fracture and patient refused discharge to rehab; he went home with oxycodone which has not been controlling the pain. He now c/o radiation down his left leg.
He is also now unable to complete some ADLs without assistance related to pain.
A/P:
# Intractable lower back pain likely 2/2 L2 compression fracture
MRI lumbar spine showed mild acute superior plate compression deformity of L2. Findings suspicious for incomplete/partial insufficiency fracture at S2-3. Stable chronic compression deformity of L3, status post vertebroplasty. Mild chronic superior
endplate compression deformity of L4.
appreciate IRAD input, agree with vertebroplasty for severe intractable lower back pain, plan for Friday 01/26
PT OT eval
Cont pain control, IV morphine PRN while in the hospital, cover with bowel regimen Senokot-S and Miralax for constipation
# ?Acute urinary retention, appears to have resolved
MRI r/o spinal cord involvement
monitor with bladder scan and straight cath PRN
Started Flomax
# hypothyroidism
Continue levothyroxine
TSH 3.05
# hypertension
Continue lisinopril and metoprolol
BP stable
# Hyperlipidemia
# Coronary artery disease
continue rosuvastatin
# Paroxysmal a-fib
continue metoprolol
Holding Eliquis for now in case needing vertebroplasty
# HFrEF
continue RACKING MACHINE OPERATOR furosemide, lisinopril, Toprol, Jardiance
# rheumatoid arthritis
Continue RACKING MACHINE OPERATOR prednisone and Bactrim prophylaxis
# type 2 diabetes with neuropathy
A1c (01/16/2025): 6.5
AccuCheck AC & HS
SSI
continue Jardiance and sitagliptin
# interstitial lung disease
continue mycophenolate
# depression/anxiety
continue sertraline
# AAA s/p repair
# pulmonary hypertension
# peripheral artery disease
Code status: DNR
DVT prophylaxis: Holding RACKING MACHINE OPERATOR Eliquis prior to vertebroplasty, cover with HSQ for now
DW RN
Anticipated Discharge: 24 - 48 hours
Subjective/Interval History
-
Date of Service: January 23, 2025
Objective Data
-
Labs:
Laboratory Results
01/23/25
05:03
WBC 9.8
Hgb 9.4 L
Hct 31.7 L
Plt Count 196
Sodium 141
Potassium 4.3
Chloride 108 H
Carbon Dioxide 27
BUN 39 H
Creatinine 1.5 H
Glucose 98
Calcium 8.8
Vital Signs:
Vital Signs
Temp Pulse Resp BP Pulse Ox
36.7 C 53 16 117/59 97
01/23/25 07:10 01/23/25 07:10 01/23/25 07:10 01/23/25 07:10 01/23/25 07:10
I&O
01/22/25 01/23/25 01/24/25
06:59 06:59 06:59
Intake Total 1920 / 1920 660 / 660
Output Total 650 / 650
Balance 1270 / 1270 660 / 660
Review of Systems
-
History Source: Patient
Genitourinary: Reports Other (urinary retention has resolved )
Musculoskeletal: Reports Other (lower back pain)
Physical Exam
-
General: Well Developed, Well Nourished, No Apparent Distress, Comfortable and Conversant
HEENT: Normocephalic and Atraumatic
Respiratory: Clear to Auscultation and Non Labored Respirations; Negative Accessory Resp Muscle Use
Cardiac: Regular Rhythm and S1/S2
GI: Soft, Nontender and Nondistended
Skin: Warm
Neuro: Awake and Alert
Psych: Calm and Intact Judgement/Insight
Data Reviewed
-
MRI: Report Reviewed by me and Discussed with Patient
Labs: Labs Reviewed by me
[2025-01-23 12:13] LABS: Glucose - Point of Care 184 mg/dl (70-99)
[2025-01-23] MEDS: NOVOLOG FLEXPEN-LOW RESISTANCE 1 UNITS SC (12:47)
[2025-01-23] MEDS: MORPHINE SULFATE 2 MG IV (12:48)
[2025-01-23 17:12] LABS: Glucose - Point of Care 168 mg/dl (70-99)
[2025-01-23] MEDS: CRESTOR 20 MG PO (17:44)
--- NOTE | 2025-01-23 20:00 | PTCARENOTE ---
While rounding on patient, patient was screaming in pain and stated his lower back pain has gotten worse after falling in the bathroom today during day shift. This RN offered to reposition patient in a more comfortable position. Patient refused.
This RN offered PRN pain medications that are ordered. Patient stated, 'Nothing you give me helps. Give me something stronger.' TOM Mcarthur notified. One time order for Valium placed and administered. Plan of care ongoing.
[2025-01-23] MEDS: VALIUM 2 MG PO (20:01)
[2025-01-23] MEDS: ZOLOFT 50 MG PO (22:16)
[2025-01-23] MEDS: SYNTHROID 100 MCG PO (22:16)
[2025-01-23] MEDS: LIDOCAINE 4% PATCH 1 PATCH TOPICAL (22:17)
[2025-01-23 22:19] LABS: Glucose - Point of Care 91 mg/dl (70-99)
[2025-01-24] VITALS (7 sets, daily range): BP systolic 72–111; BP diastolic 43–64; PULSE 63–80; O2SAT 92
[2025-01-24] MEDS: TUMS CHEWABLE TABLET 200 MG PO ×2 (00:46→21:18)
[2025-01-24] MEDS: ROXICODONE 5 MG PO ×4 (00:46→21:18)
[2025-01-24] MEDS: MORPHINE SULFATE 2 MG IV (02:31)
--- NOTE | 2025-01-24 02:52 | PTCARENOTE ---
Patient being inappropriate with this RN throughout shift, making sexual comments, and attempted to touch this RN's waist while being bladder scanned early in shift. Patient asked to not behave in this manner by this RN. Plan of care ongoing.
[2025-01-24] MEDS: ZOFRAN 4 MG IV (04:03)
--- NOTE | 2025-01-24 05:58 | PTCARENOTE ---
Patient refusing to stand up for daily weight due to back pain and refusing to have HOB moved down to obtain weight via bed scale. Plan of care ongoing.
--- NOTE | 2025-01-24 07:31 | FALL ---
Description of Fall: 01/23/2025 12:05 pm
Patient found by PCT in restroom on floor with upper body in shower space lying on left side. Patient stated that he was attempting to sit on toilet and collapsed forward to floor. Denies striking head but endorses dizziness prior to fall. VS
obtained and noted to be hypoxic at 89% placed on 2L O@ and sat improved to 94%. Assisted to toilet and subsequently to bed.
Injuries Noted:
No injuries noted on head of face. ROM assessed in left shoulder, intact. Bleeding noted from left foot, small laceration below left fifth toe cleaned and dressed with gauze. Patient denied pain.
Action Taken:
Bed alarm placed. notified.
Name of Provider Notified: Jori Reynoso No new orders
[2025-01-24 08:11] LABS: Glucose - Point of Care 110 mg/dl (70-99)
[2025-01-24] MEDS: DELTASONE 10 MG PO (08:13)
[2025-01-24] MEDS: TOPROL XL 50 MG PO (08:14)
[2025-01-24] MEDS: COLACE 200 MG PO ×2 (08:14→21:17)
[2025-01-24] MEDS: FLOMAX 0.4 MG PO (08:14)
[2025-01-24] MEDS: JANUVIA 100 MG PO (08:15)
[2025-01-24] MEDS: ZESTRIL 5 MG PO (08:15)
[2025-01-24] MEDS: FARXIGA 10 MG PO (08:16)
[2025-01-24] MEDS: DELTASONE 7.5 MG PO (08:16)
[2025-01-24] MEDS: SENOKOT-S 1 TABLET PO ×2 (08:16→21:18)
[2025-01-24] MEDS: LASIX 40 MG PO (08:17)
[2025-01-24] MEDS: NEURONTIN 300 MG PO ×2 (08:17→21:17)
[2025-01-24] MEDS: MUCINEX 600 MG PO ×2 (08:17→21:18)
[2025-01-24] MEDS: CELLCEPT 1000 MG PO ×2 (08:18→21:17)
[2025-01-24] MEDS: HEPARIN 5000 UNITS SC ×2 (08:18→21:16)
[2025-01-24] MEDS: NOVOLOG FLEXPEN-LOW RESISTANCE SC (08:19)
[2025-01-24] MEDS: MIRALAX 17 GRAMS PO (08:19)
[2025-01-24 08:21] LABS: INR 1.04; PT 13.9 Sec (11.4-14.6)
--- NOTE | 2025-01-24 10:08 | W.PN.HOSP.TC ---
Today's Communication/Plan
-
Continue pain management, vertebroplasty on Sunday
Assessment / Plan
Assessment / Plan
HPI: 89-year-old male with past medical history significant for hypothyroidism, hypertension, peripheral artery disease, AAA, CKD III, coronary artery disease, paroxysmal a-fib, DM II, HFrEF, pulmonary hypertension, depression/anxiety, interstitial
lung disease; who presented to ED for evaluation of intractable lower back pain.
Patient with recent admission for same complaint. He was found to have a L2 compression fracture and patient refused discharge to rehab; he went home with oxycodone which has not been controlling the pain. He now c/o radiation down his left leg.
He is also now unable to complete some ADLs without assistance related to pain.
A/P:
1. Intractable lower back pain likely 2/2 L2 compression fracture
MRI lumbar spine showed:
mild acute superior plate compression deformity of L2.
Findings suspicious for incomplete/partial insufficiency fracture at S2-3.
Stable chronic compression deformity of L3, status post vertebroplasty.
Mild chronic superior endplate compression deformity of L4.
appreciate IRAD input, agree with vertebroplasty for severe intractable lower back pain,
plan for Friday 01/26
PT OT eval
Cont pain control:
IV morphine PRN while in the hospital,
cover with bowel regimen Senokot-S and Miralax for constipation
2. Acute urinary retention, appears to have resolved
MRI r/o spinal cord involvement
monitor with bladder scan and straight cath PRN
Started Flomax
3. hypothyroidism - chronic
Continue levothyroxine
TSH 3.05
4. hypertension - benign, chronic
Continue lisinopril and metoprolol
BP stable
5. Hyperlipidemia - chronic
complicated by Coronary artery disease
continue rosuvastatin
6. Paroxysmal a-fib - chronic
continue metoprolol
Holding Eliquis for now in case needing vertebroplasty
7. HFrEF - chronic
continue HAND COKE DRAWER furosemide, lisinopril, Toprol, Jardiance
8. rheumatoid arthritis - chronic
Continue HAND COKE DRAWER prednisone and Bactrim prophylaxis
9. 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
AccuCheck AC & HS
SSI
continue Jardiance and sitagliptin
10. interstitial lung disease - chronic
continue mycophenolate
11. depression/anxiety - chronic
continue sertraline
12. AAA s/p repair
13. pulmonary hypertension
14. peripheral artery disease
Code status: DNR
DVT prophylaxis: Holding HAND COKE DRAWER Eliquis prior to vertebroplasty, cover with HSQ for now
Anticipated Discharge: 24 - 48 hours
Subjective/Interval History
-
Date of Service: January 24, 2025
Pain continues
Objective Data
-
Labs:
Laboratory Results
01/24/25
07:14
PT 13.9
INR 1.04
Vital Signs:
Vital Signs
Temp Pulse Resp BP Pulse Ox
98.2 F 61 18 111/62 91
01/24/25 07:05 01/24/25 08:15 01/24/25 07:05 01/24/25 08:15 01/24/25 07:05
I&O
01/23/25 01/24/25 01/25/25
06:59 06:59 06:59
Intake Total 660 / 660 1200 / 1200
Output Total 150 / 150
Balance 660 / 660 1050 / 1050
Review of Systems
-
History Source: Patient
Musculoskeletal: Reports Other (back pain)
Physical Exam
-
General: Well Developed, Well Nourished and Pain
HEENT: Nose Appears Normal and Ears Appear Normal
Respiratory: Clear to Auscultation
Cardiac: Regular Rhythm and S1/S2
GI: Soft, Nontender and Nondistended
Musculoskeletal: No Clubbing, No Cyanosis and No Edema
Skin: Warm and Dry
Neuro: Awake and Alert
Psych: Calm
Data Reviewed
-
Labs: Labs Reviewed by me
[2025-01-24 11:45] LABS: Glucose - Point of Care 177 mg/dl (70-99)
[2025-01-24] MEDS: NOVOLOG FLEXPEN-LOW RESISTANCE 1 UNITS SC ×2 (12:21→18:12)
[2025-01-24 16:58] LABS: Glucose - Point of Care 179 mg/dl (70-99)
[2025-01-24] MEDS: CRESTOR 20 MG PO (17:54)
--- NOTE | 2025-01-24 19:30 | FALL ---
Description of Fall:
About 1720hrs pt requested assistance to ambulate to bathroom with walker. Denied dizziness or weakness upon rising from bed. But about 15 ft from bed collapsed abruptly and fell to knees rolling onto his left side into linen cart. PCT assisted
this RN to raise patient to feet at his insistence 'I'm ok, get me up now!' Only seconds after standing, while supported by this RN and PCT, patient collapsed to knees again. A third staff member brought a wheelchair as patient assisted to chair.
Injuries Noted:
On assessment laceration of left fifth toe reopened and was bleeding. also suffered skin tear to left elbox, small laceration on right great toe and abrasion of left knee. ROM intact in all joints. Patient endorsed some pain in left elbow but
otherwise no complaints. Pt. states he 'tripped over walker' when attempting to turn right into restroom.
Action Taken:
VS obtained. Wounds cleansed and dressed. Physician notified. X-ray left foot ordered.
Name of Provider Notified: MD Domenic
[2025-01-24] MEDS: LIDOCAINE 4% PATCH 1 PATCH TOPICAL (21:17)
[2025-01-24] MEDS: ZOLOFT 50 MG PO (21:18)
[2025-01-24] MEDS: SYNTHROID 100 MCG PO (21:18)
[2025-01-24 21:38] LABS: Glucose - Point of Care 46 mg/dl (70-99)
--- NOTE | 2025-01-24 21:45 | PTCARENOTE ---
pt's night time blood sugar was 46, PCT gave OJ and will recheck.
[2025-01-24 22:24] LABS: Glucose - Point of Care 139 mg/dl (70-99)
[2025-01-25] MEDS: TUMS CHEWABLE TABLET 200 MG PO ×4 (01:15→22:16)
[2025-01-25] MEDS: ROXICODONE 5 MG PO ×4 (01:15→22:16)
[2025-01-25] MEDS: TYLENOL 650 MG PO (03:52)
[2025-01-25 05:32] VITALS: BMI 29.7
[2025-01-25 07:05] VITALS: BP 101/55
[2025-01-25 08:14] LABS: Glucose - Point of Care 119 mg/dl (70-99)
[2025-01-25] MEDS: NOVOLOG FLEXPEN-LOW RESISTANCE SC ×2 (08:16→17:00)
[2025-01-25] MEDS: HEPARIN 5000 UNITS SC ×2 (08:21→20:36)
[2025-01-25] MEDS: TOPROL XL PO (08:21)
[2025-01-25] MEDS: FLOMAX 0.4 MG PO (08:22)
[2025-01-25] MEDS: NEURONTIN 300 MG PO ×2 (08:22→20:38)
[2025-01-25] MEDS: ZESTRIL PO (08:22)
[2025-01-25] MEDS: DELTASONE 7.5 MG PO (08:22)
[2025-01-25] MEDS: DELTASONE 10 MG PO (08:22)
[2025-01-25] MEDS: FARXIGA 10 MG PO (08:22)
[2025-01-25] MEDS: SENOKOT-S 1 TABLET PO ×2 (08:22→20:38)
[2025-01-25] MEDS: MUCINEX 600 MG PO ×2 (08:22→20:38)
[2025-01-25] MEDS: JANUVIA 100 MG PO (08:22)
[2025-01-25] MEDS: CELLCEPT 1000 MG PO ×2 (08:22→20:36)
[2025-01-25] MEDS: LASIX PO (08:23)
[2025-01-25] MEDS: COLACE 200 MG PO ×2 (08:23→20:38)
[2025-01-25] MEDS: MIRALAX PO (08:25)
--- NOTE | 2025-01-25 10:09 | W.PN.HOSP.TC ---
Today's Communication/Plan
-
New broken toe on left foot. Bedrest until seen by ortho. NPO after midnight.
Assessment / Plan
Assessment / Plan
HPI: 89-year-old male with past medical history significant for hypothyroidism, hypertension, peripheral artery disease, AAA, CKD III, coronary artery disease, paroxysmal a-fib, DM II, HFrEF, pulmonary hypertension, depression/anxiety, interstitial
lung disease; who presented to ED for evaluation of intractable lower back pain.
Patient with recent admission for same complaint. He was found to have a L2 compression fracture and patient refused discharge to rehab; he went home with oxycodone which has not been controlling the pain. He now c/o radiation down his left leg.
He is also now unable to complete some ADLs without assistance related to pain.
A/P:
0. Foot pain - new issue after stumble yesterday. Xray showed the following:
1. Acute intra-articular fracture of the head of the proximal phalanx of the left 5th toe.
2. 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
3. Moderate to large calcaneal enthesophytes.
4. Chronic erosion of the tuft of the distal phalanx of the great toe.
Will consult ortho for recs.
Bed rest until seen by ortho.
1. Intractable lower back pain likely 2/2 L2 compression fracture
MRI lumbar spine showed:
mild acute superior plate compression deformity of L2.
Findings suspicious for incomplete/partial insufficiency fracture at S2-3.
Stable chronic compression deformity of L3, status post vertebroplasty.
Mild chronic superior endplate compression deformity of L4.
appreciate IRAD input, agree with vertebroplasty for severe intractable lower back pain,
plan for Friday 01/26
PT OT eval
Cont pain control:
IV morphine PRN while in the hospital,
cover with bowel regimen Senokot-S and Miralax for constipation
2. Acute urinary retention, appears to have resolved
MRI r/o spinal cord involvement
monitor with bladder scan and straight cath PRN
Started Flomax
3. hypothyroidism - chronic
Continue levothyroxine
TSH 3.05
4. hypertension - benign, chronic
Continue lisinopril and metoprolol
BP stable
5. Hyperlipidemia - chronic
complicated by Coronary artery disease
continue rosuvastatin
6. Paroxysmal a-fib - chronic
continue metoprolol
Holding Eliquis for now in case needing vertebroplasty
7. HFrEF - chronic
continue S[employer]LE [employer]ARNESS [employer]KER furosemide, lisinopril, Toprol, Jardiance
8. rheumatoid arthritis - chronic
Continue SADD[employer]KER prednisone and Bactrim prophylaxis
9. 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
AccuCheck AC & HS
SSI
continue Jardiance and sitagliptin
10. interstitial lung disease - chronic
continue mycophenolate
11. depression/anxiety - chronic
continue sertraline
12. AAA s/p repair
13. pulmonary hypertension
14. peripheral artery disease
Code status: DNR
DVT prophylaxis: Holding SADDLE [employer] HARNESS MAKER Eliquis prior to vertebroplasty, cover with HSQ for now
Anticipated Discharge: 24 - 48 hours
Subjective/Interval History
-
Date of Service: January 25, 2025
Patient stumbled while walking (assisted) with walker. he complained of foot pain. Foot was x-rayed and shows acute fracture.
Objective Data
-
Vital Signs:
Vital Signs
Temp Pulse Resp BP Pulse Ox
98.1 F 57 18 101/55 92
01/25/25 07:05 01/25/25 08:21 01/25/25 07:05 01/25/25 08:21 01/25/25 07:05
I&O
01/24/25 01/25/25 01/26/25
06:59 06:59 06:59
Intake Total 1200 / 1200 960 / 960
Output Total 150 / 150 400 / 400 400 / 400
Balance 1050 / 1050 560 / 560 -400 / -400
Review of Systems
-
History Source: Patient
All other systems: Reviewed and negative
Musculoskeletal: Reports Joint Pain
Physical Exam
-
General: Well Developed, Well Nourished, No Apparent Distress, Comfortable and Conversant
HEENT: Normocephalic, Atraumatic, Nose Appears Normal and Ears Appear Normal
Respiratory: Clear to Auscultation
Cardiac: Regular Rhythm and S1/S2
GI: Soft, Nontender and Nondistended
Musculoskeletal: No Clubbing, No Cyanosis and No Edema
Skin: Warm and Dry
Neuro: Awake, Alert and Oriented
Psych: Calm
Data Reviewed
-
Diagnostic Radiology: Report Reviewed by me (foot xray)
Labs: Labs Reviewed by me
[2025-01-25 11:38] LABS: Glucose - Point of Care 163 mg/dl (70-99)
[2025-01-25] MEDS: NOVOLOG FLEXPEN-LOW RESISTANCE 1 UNITS SC (12:08)
[2025-01-25 15:05] VITALS: BP 141/55
[2025-01-25 16:53] LABS: Glucose - Point of Care 134 mg/dl (70-99)
[2025-01-25] MEDS: CRESTOR 20 MG PO (17:24)
[2025-01-25 21:45] LABS: Glucose - Point of Care 206 mg/dl (70-99)
[2025-01-25] MEDS: LIDOCAINE 4% PATCH 1 PATCH TOPICAL (22:15)
[2025-01-25] MEDS: SYNTHROID 100 MCG PO (22:16)
[2025-01-25] MEDS: ZOLOFT 50 MG PO (22:16)
[2025-01-26] VITALS (9 sets, daily range): BP systolic 58–144; BP diastolic 64–85
[2025-01-26 05:31] LABS: Hematocrit 32.4 % (39.0-52.0); Hemoglobin 9.9 g/dL (13.0-18.0); Mean Corp Hgb Conc. 30.6 g/dL (33.0-37.0); Mean Corpuscular Volume 98.2 fL (80.0-94.0); Mean Platelet Volume 9.4 fL (7.4-10.4); Platelet Count 218 10^3/uL (130-400); Red Cell Dist. Width 17.2 % (11.5-14.5); White Blood Cell Count 10.5 10^3/uL (4.8-10.8)
[2025-01-26 05:52] LABS: Blood Urea Nitrogen 35 mg/dl (9-20); Calcium 9.2 mg/dl (8.4-10.2); Carbon Dioxide 26 mmol/L (22-30); Chloride 109 mmol/L (98-107); Estimated Creatinine Clearance 38 ml/min; Glucose 117 mg/dl (70-99); Potassium 4.1 mmol/L (3.5-5.1); Sodium 140 mmol/L (135-145); eGFR 48.65
[2025-01-26 07:43] LABS: Glucose - Point of Care 107 mg/dl (70-99)
[2025-01-26] MEDS: NOVOLOG FLEXPEN-LOW RESISTANCE SC ×2 (08:48→12:13)
[2025-01-26] MEDS: LASIX 40 MG PO (08:59)
[2025-01-26] MEDS: CELLCEPT 1000 MG PO ×2 (08:59→21:40)
[2025-01-26] MEDS: DELTASONE 7.5 MG PO (09:00)
[2025-01-26] MEDS: MIRALAX 17 GRAMS PO ×2 (09:00→21:40)
[2025-01-26] MEDS: FARXIGA 10 MG PO (09:01)
[2025-01-26] MEDS: SENOKOT-S 1 TABLET PO ×2 (09:01→21:41)
[2025-01-26] MEDS: FLOMAX 0.4 MG PO (09:01)
[2025-01-26] MEDS: BACTRIM DS 800 MG/160 MG 1 TABLET PO (09:01)
[2025-01-26] MEDS: DELTASONE 10 MG PO (09:02)
[2025-01-26] MEDS: COLACE 200 MG PO (09:02)
[2025-01-26] MEDS: NEURONTIN 300 MG PO ×2 (09:02→21:37)
[2025-01-26] MEDS: MUCINEX 600 MG PO ×2 (09:03→21:37)
[2025-01-26] MEDS: TOPROL XL 50 MG PO (09:03)
[2025-01-26] MEDS: HEPARIN 5000 UNITS SC ×2 (09:03→21:39)
[2025-01-26] MEDS: ZESTRIL 5 MG PO (09:04)
[2025-01-26] MEDS: JANUVIA 100 MG PO (09:06)
[2025-01-26] MEDS: MORPHINE SULFATE 2 MG IV ×2 (09:45→16:53)
[2025-01-26] MEDS: ZOFRAN 4 MG IV (09:58)
--- NOTE | 2025-01-26 10:17 | CM ---
NPO ,Pt scheduled for vertebroplasty today 01/26/25.
Will need PT OT evals ordered postop
Son Law aware PT . He requested pt return to [facility] under personal care.
Will need to review PT OT post procedure with [facility] for dc planning.
Pt had fell and has broken left toe.
PLAN Return to [facility] personal care VS SNF
[2025-01-26 11:59] LABS: Glucose - Point of Care 149 mg/dl (70-99)
--- NOTE | 2025-01-26 12:12 | W.PN.HOSP.TC ---
Today's Communication/Plan
-
irad for vertebroplasty
npo
bowel regimen
pain control
Assessment / Plan
Assessment / Plan
General: Well Developed, Well Nourished, pain in distress,
HEENT: Normocephalic, Atraumatic, Nose Appears Normal and Ears Appear Normal
Respiratory: Clear to Auscultation
Cardiac: Regular Rhythm and S1/S2
GI: Soft, Nontender and Nondistended
Musculoskeletal: No Clubbing, No Cyanosis and No Edema
Skin: Warm and Dry
Neuro: Awake, Alert and Oriented
Psych: Calm
HPI: 89-year-old male with past medical history significant for hypothyroidism, hypertension, peripheral artery disease, AAA, CKD III, coronary artery disease, paroxysmal a-fib, DM II, HFrEF, pulmonary hypertension, depression/anxiety, interstitial
lung disease; who presented to ED for evaluation of intractable lower back pain.
Patient with recent admission for same complaint. He was found to have a L2 compression fracture and patient refused discharge to rehab; he went home with oxycodone which has not been controlling the pain. He now c/o radiation down his left leg.
He is also now unable to complete some ADLs without assistance related to pain.
A/P:
# Acute intra-articular fracture of the head of the proximal phalanx of the left 5th toe.
#Intractable lower back pain likely 2/2 L2 compression fracture
MRI lumbar spine showed: mild acute superior plate compression deformity of L2. Findings suspicious for incomplete/partial insufficiency fracture at S2-3. Stable chronic compression deformity of L3, status post vertebroplasty. Mild chronic
superior endplate compression deformity of L4.
appreciate IRAD input, agree with vertebroplasty for severe intractable lower back pain,
plan for Friday 01/26
PT OT eval
Cont pain control:
IV morphine PRN while in the hospital,
cover with bowel regimen Senokot-S and Miralax for constipation
#Acute urinary retention, appears to have resolved
MRI r/o spinal cord involvement
monitor with bladder scan and straight cath PRN
Started Flomax
#hypothyroidism - chronic
Continue levothyroxine
TSH 3.05
#hypertension - benign, chronic
Continue lisinopril and metoprolol
BP stable
#Hyperlipidemia - chronic
complicated by Coronary artery disease
continue rosuvastatin
# Paroxysmal a-fib - chronic
continue metoprolol
Holding Eliquis for now in case needing vertebroplasty
# HFrEF - chronic
continue H[employer] DIE PRESS FEEDER furosemide, lisinopril, Toprol, Jardiance
# rheumatoid arthritis - chronic
Continue HOT D[employer] PRESS FEEDER prednisone and Bactrim prophylaxis
#type 2 diabetes with neuropathy, A1c (01/16/2025): 6.5
AccuCheck AC & HS
SSI
continue Jardiance and sitagliptin
# interstitial lung disease - chronic
continue mycophenolate
#depression/anxiety - chronic
continue sertraline
AAA s/p repair
pulmonary hypertension
peripheral artery disease
Code status: DNR
DVT prophylaxis: Holding HOT DIE PRESS FEEDER Eliquis prior to vertebroplasty, cover with HSQ for now
Anticipated Discharge: > 48 hours
Subjective/Interval History
-
Date of Service: January 26, 2025
states of back pain
states of nausea
states of not much bowel movements
Objective Data
-
Labs:
Laboratory Results
01/26/25
05:12
WBC 10.5
Hgb 9.9 L
Hct 32.4 L
Plt Count 218
Sodium 140
Potassium 4.1
Chloride 109 H
Carbon Dioxide 26
BUN 35 H
Creatinine 1.4 H
Glucose 117 H
Calcium 9.2
Vital Signs:
Vital Signs
Temp Pulse Resp BP Pulse Ox
98.5 F 87 18 125/68 91
01/26/25 08:57 01/26/25 08:57 01/26/25 08:57 01/26/25 08:57 01/26/25 08:57
I&O
01/25/25 01/26/25 01/27/25
06:59 06:59 06:59
Intake Total 960 / 960 900 / 900
Output Total 400 / 400 1575 / 1575
Balance 560 / 560 -675 / -675
Data Reviewed
-
Total Time Spent with Patient (in minutes): 55
[2025-01-26 13:44] LABS: Glucose - Point of Care 152 mg/dl (70-99)
[2025-01-26] MEDS: ANCEF 10 IV (14:01)
[2025-01-26 16:35] LABS: Glucose - Point of Care 157 mg/dl (70-99)
--- NOTE | 2025-01-26 17:54 | PTCARENOTE ---
Report given to FARIBA Morrison. Pt transferred to 2115 post procedure. Family took all belongings downstairs.
[2025-01-26 18:05] LABS: Glucose - Point of Care 164 mg/dl (70-99)
--- NOTE | 2025-01-26 18:16 | PTCARENOTE ---
Pt arrived to [facility] on a stretcher from IR. Pt pulled over into the bed. Pt on 2L of O2 at 95%. Pt has left arm foam from abrasion, left knee skin tear, and both left and right toes wrapped in kerlix. Pt oriented to room and call [place]. Bed locked
and in lowest position. Bed alarm placed on pt bed. Care ongoing.
[2025-01-26] MEDS: NOVOLOG FLEXPEN-LOW RESISTANCE 1 UNITS SC (18:24)
[2025-01-26] MEDS: CRESTOR 20 MG PO (18:26)
[2025-01-26 21:26] LABS: Glucose - Point of Care 148 mg/dl (70-99)
[2025-01-26] MEDS: LIDOCAINE 4% PATCH 1 PATCH TOPICAL (21:41)
[2025-01-26] MEDS: SYNTHROID 100 MCG PO (21:42)
[2025-01-26] MEDS: ZOLOFT 50 MG PO (21:45)
[2025-01-26] MEDS: DULCOLAX 10 MG PO (21:45)
[2025-01-27] VITALS (7 sets, daily range): BP systolic 85–121; BP diastolic 44–64; PULSE 67–78; BMI 28.7; BMI 28.8
[2025-01-27] MEDS: MORPHINE SULFATE 2 MG IV (06:09)
[2025-01-27] MEDS: FLUSH (NSS) 2 FLUSH IV (06:10)
[2025-01-27 07:00] LABS: Glucose - Point of Care 90 mg/dl (70-99)
[2025-01-27] MEDS: NOVOLOG FLEXPEN-LOW RESISTANCE SC (08:14)
[2025-01-27] MEDS: CELLCEPT 1000 MG PO ×2 (09:00→20:59)
[2025-01-27] MEDS: DELTASONE 7.5 MG PO (09:00)
[2025-01-27] MEDS: TOPROL XL 50 MG PO (09:01)
[2025-01-27] MEDS: JANUVIA 100 MG PO (09:01)
[2025-01-27] MEDS: NEURONTIN 300 MG PO ×2 (09:01→20:48)
[2025-01-27] MEDS: MUCINEX 600 MG PO ×2 (09:01→20:59)
[2025-01-27] MEDS: FARXIGA 10 MG PO (09:01)
[2025-01-27] MEDS: ZESTRIL 5 MG PO (09:02)
[2025-01-27] MEDS: HEPARIN 5000 UNITS SC (09:02)
[2025-01-27] MEDS: LASIX 40 MG PO (09:02)
[2025-01-27] MEDS: FLOMAX 0.4 MG PO (09:02)
[2025-01-27] MEDS: DELTASONE 10 MG PO (09:02)
[2025-01-27] MEDS: SENOKOT-S 1 TABLET PO ×2 (09:02→20:48)
[2025-01-27] MEDS: MIRALAX 17 GRAMS PO ×2 (09:03→20:59)
--- NOTE | 2025-01-27 09:30 | PTCARENOTE ---
Per dietary services pt with verbal aggression towards staff upon reciving breakfast tray. Pt reportedly agitated and shouting at dietary staff. RN to see pt. Pt yelling 'I am not eating breakfast until it is changed to my regular diet.' Dr. Gorman
notified. Regular diet ordered. Care ongoing.
[2025-01-27] MEDS: FLEXERIL 5 MG PO ×2 (10:20→20:59)
--- NOTE | 2025-01-27 11:56 | CM ---
Addendum entered by Wen Canada RN 01/27/25 15:11:
PT recommending SNF. Spoke with the patient's son via telephone. Patient had been [place]. Discussed SNFs in area. Permission received to sent referrals out. Referrals sent with [facility].
Original Note:
Reviewed the chart notes and spoke with the patient at the bedside. Patient had L2 percutaneous vertebroplasty yesterday. TT to attending regarding needing new PT/OT orders for assessment for discharge planning purposes. CM continues to be
available to patient/family and is monitoring medical plan for needs at discharge.
Plan: Discharge plans will depend on the patient's progress.
[2025-01-27 12:27] LABS: Glucose - Point of Care 208 mg/dl (70-99)
[2025-01-27] MEDS: NOVOLOG FLEXPEN-LOW RESISTANCE 2 UNITS SC (13:07)
--- NOTE | 2025-01-27 13:15 | W.PN.HOSP.TC ---
Today's Communication/Plan
-
restart Eliquis
PT/OT
leland tape left 5th toe
bowel regimen
Assessment / Plan
Assessment / Plan
General: Well Developed, Well Nourished, pain in distress,
HEENT: Normocephalic, Atraumatic, Nose Appears Normal and Ears Appear Normal
Respiratory: Clear to Auscultation
Cardiac: Regular Rhythm and S1/S2
GI: Soft, Nontender and Nondistended
Musculoskeletal: No Clubbing, No Cyanosis and No Edema
Skin: Warm and Dry
Neuro: Awake, Alert and Oriented
Psych: Calm
HPI: 89-year-old male with past medical history significant for hypothyroidism, hypertension, peripheral artery disease, AAA, CKD III, coronary artery disease, paroxysmal a-fib, DM II, HFrEF, pulmonary hypertension, depression/anxiety, interstitial
lung disease; who presented to ED for evaluation of intractable lower back pain.
Patient with recent admission for same complaint. He was found to have a L2 compression fracture and patient refused discharge to rehab; he went home with oxycodone which has not been controlling the pain. He now c/o radiation down his left leg.
He is also now unable to complete some ADLs without assistance related to pain.
A/P:
# Acute intra-articular fracture of the head of the proximal phalanx of the left 5th toe.
leland tape
denies left foot pain currently
#Intractable lower back pain likely 2/2 L2 compression fracture
MRI lumbar spine showed: mild acute superior plate compression deformity of L2. Findings suspicious for incomplete/partial insufficiency fracture at S2-3. Stable chronic compression deformity of L3, status post vertebroplasty. Mild chronic
superior endplate compression deformity of L4.
appreciate IRAD input, agree with vertebroplasty for severe intractable lower back pain,
Status post vertebroplasty L2 region by interventional radiology-pain has improved.
PT OT eval
Cont pain control:
IV morphine PRN while in the hospital,
muscle relaxant prn if needed while here
Continue with aggressive bowel regimen
#Acute urinary retention, appears to have resolved
MRI r/o spinal cord involvement
monitor with bladder scan and straight cath PRN
Started Flomax
#hypothyroidism - chronic
Continue levothyroxine
TSH 3.05
#hypertension - benign, chronic
Continue lisinopril and metoprolol
BP stable
#Hyperlipidemia - chronic
complicated by Coronary artery disease
continue rosuvastatin
# Paroxysmal a-fib - chronic
continue metoprolol
d/w with IRAD okay to restart Eliquis for now
# HFrEF - chronic
continue [employer] OFFICER furosemide, lisinopril, Toprol, Jardiance
# rheumatoid arthritis - chronic
Continue [employer] OFFICER prednisone and Bactrim prophylaxis
#type 2 diabetes with neuropathy, A1c (01/16/2025): 6.5
AccuCheck AC & HS
SSI
continue Jardiance and sitagliptin
# interstitial lung disease - chronic
continue mycophenolate
#depression/anxiety - chronic
continue sertraline
AAA s/p repair
pulmonary hypertension
peripheral artery disease
Code status: DNR
DVT prophylaxis: [employer] OFFICER Eliquis
Anticipated Discharge: 24 - 48 hours
Subjective/Interval History
-
Date of Service: January 27, 2025
states back pain has improved
states of muscle spasms
Objective Data
-
Vital Signs:
Vital Signs
Temp Pulse Resp BP Pulse Ox
98.1 F 66 16 110/48 93
01/27/25 11:25 01/27/25 11:25 01/27/25 11:25 01/27/25 11:25 01/27/25 11:25
I&O
01/26/25 01/27/25 01/28/25
06:59 06:59 06:59
Intake Total 900 / 900 90 / 90
Output Total 1575 / 1575 50 / 50 150 / 150
Balance -675 / -675 -50 / -50 -60 / -60
--- NOTE | 2025-01-27 15:27 | PTCARENOTE ---
Pt assisted OOB into the chair wit PT/OT. After 30 minutes, pt rang for assistance back into bed. This RN educated pt on importance of getting OOB. Pt agitated and yelling at nurse 'I am more educated than you.' Continuing to monitor. Care ongoing.
--- NOTE | 2025-01-27 17:21 | CON.SURG ---
Surgical Consultation
-
Chief Complaint
-
Left 5th toe fracture
History of Present Illness
Patient is 89-year-old male with past medical history significant for hypothyroidism, hypertension, peripheral artery disease, AAA, CKD III, coronary artery disease, paroxysmal a-fib, DM II, HFrEF, pulmonary hypertension, depression/anxiety and
interstitial lung disease who presented to [facility] ED for evaluation of intractable back pain. Podiatry has been consulted for a 5th toe fracture that occurred during a fall. Since then, his 5th toe has only given him mild discomfort. He has been
taping and tolerating ambulation well.
Medical History
Past Medical History
Past Medical History: Reports Other
Additional Past Medical History:
hypothyroidism
hypertension
peripheral artery disease
AAA
coronary artery disease
paroxysmal a-fib
HFrEF
rheumatoid arthritis
type 2 diabetes with neuropathy
pulmonary hypertension
interstitial lung disease
depression/anxiety
Past Surgical History: Reports Other
Additional Past Surgical History:
kyphoplasty
left cataract removed
eyelid surgery
cardica cath
Social History
Tobacco: Former Smoker
Alcohol: None
Drug: None
Personal: Single
Living: Assisted Living ([facility] )
Family History
Family History: Not pertinent
Allergies / Home Medications
Allergies reflects when Allergies were last updated in [facility].
Home Medications with original date entered in [facility]
Allergy/Medication List:
Allergies
Allergy/AdvReac Type Severity Reaction Status Date / Time
codeine Allergy Vomiting Verified 01/19/25 10:01
Home Medications
mycophenolate mofetil 500 mg tablet 1,000 mg PO BID interstitial lung disease 03/03/24
rosuvastatin 20 mg tablet 20 mg PO QPM High Cholesterol 03/03/24
sulfamethoxazole 800 mg-trimethoprim 160 mg tablet 1 tab PO MOWEFR Infection prophylaxis 03/03/24
glucosamine 750 [id number] no1 644 mg-C 30 mg-nissa 1 mg tablet (Osteo Bi-Flex Triple Strength) 1 tab PO DAILY Supplement 04/10/24
apixaban 5 mg tablet (Eliquis) 5 mg PO BID AFib 04/19/24
gabapentin 300 mg capsule 300 mg PO BID Pain 06/08/24
acetaminophen 325 mg tablet 650 mg PO Q4HPRN PRN mild pain/fever 08/12/24
guaifenesin 600 mg tablet, extended release 12 hr 600 mg PO Q12H Cough 08/12/24
docusate sodium 100 mg capsule (Colace) 200 mg PO BID Constipation 11/03/24
levothyroxine 100 mcg tablet (Synthroid) 100 mcg PO HS Thyroid 11/03/24
lisinopril 5 mg tablet 5 mg PO DAILY Blood Pressure 11/03/24
metoprolol succinate 50 mg tablet,extended release 24 hr 50 mg PO DAILY Blood Pressure 11/03/24
empagliflozin 25 mg tablet (Jardiance) 12.5 mg PO DAILY Diabetes 12/08/24
prednisone 2.5 mg tablet 17.5 mg PO DAILY Anti-Inflammatory 12/08/24
sertraline 100 mg tablet 50 mg PO HS Depression 12/08/24
sitagliptin 100 mg tablet 100 mg PO DAILY Diabetes 12/08/24
furosemide 40 mg tablet (Lasix) 40 mg PO DAILY Fluid Retention/Swelling 01/15/25
lidocaine 4 % topical patch 1 patch topical HS 30 days #30 ea 01/17/25
oxycodone 5 mg tablet 5 mg PO Q4HPRN PRN severe pain #60 tabs 01/17/25
benzonatate 100 mg capsule 100 mg PO TIDPRN PRN cough 01/19/25
Review of Systems
-
History Source: Patient
Musculoskeletal: Reports Other (right lower back pain that intermittently is radiating down left leg)
Physical Exam
Vital Signs
Vital Signs
Temp Pulse Resp BP Pulse Ox
97.8 F 62 20 107/56 97
01/19/25 10:01 01/19/25 12:45 01/19/25 12:45 01/19/25 12:00 01/19/25 12:45
Physical Exam
General: Well Developed, Well Nourished, No Apparent Distress, Comfortable, Conversant and Obese
HEENT: NormoCephalic, Moist mucous membranes, Atraumatic, [place] Conjunctivae, Nose Appears Normal, Ears Appear Normal and Hearing Impaired
Respiratory: Clear
Cardiac: S1/S2 and Regular Rhythm
Breast: Deferred by me
GI: Soft, Non Tender and Normal Bowel Sounds
Rectal: Deferred by Provider
Genito-urinary: Deferred by me
Musculoskeletal: No Clubbing, No Cyanosis and No Edema
Skin: Warm and IV/Catheter Site
Neuro: Awake, Alert, AO x 3 and Nonfocal/grossly intact
Psych: Calm and Intact Judgment/Insight
Left lower extremity exam
-Dp/PT pulses 2/4, capillary refill < 3 seconds
-Left 5th toe pain on palpation, no deformity noted, no open wounds
Data Reviewed
-
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 Moderate colonic stool burden. There is a new trace superior endplate
irregularity of the L2 vertebral body which may represent a developing compression fracture)
Lab Data: Labs Reviewed by me
Impression/Plan
-
89 yo M with nondisplaced left 5th proximal phalanx fracture
-Patient seen and evaluated at bedside
-Can continue leland taping
-To consider surgical shoe for ambulation
-No intervention required
-Will sign off, please call with any questions or concerns
[2025-01-27 17:26] LABS: Glucose - Point of Care 161 mg/dl (70-99)
[2025-01-27] MEDS: NOVOLOG FLEXPEN-LOW RESISTANCE 1 UNITS SC (17:51)
[2025-01-27] MEDS: CRESTOR 20 MG PO (17:51)
[2025-01-27] MEDS: ELIQUIS 5 MG PO (20:48)
[2025-01-27] MEDS: SYNTHROID 100 MCG PO (21:09)
[2025-01-27] MEDS: LIDOCAINE 4% PATCH TOPICAL (21:09)
[2025-01-27] MEDS: DULCOLAX PO (21:09)
[2025-01-27] MEDS: ZOLOFT 50 MG PO (21:09)
[2025-01-27 22:12] LABS: Glucose - Point of Care 156 mg/dl (70-99)
[2025-01-27] MEDS: TESSALON PERLES 100 MG PO (23:41)
[2025-01-27] MEDS: ROXICODONE 5 MG PO (23:41)
[2025-01-28 06:00] VITALS: BMI 29.1
[2025-01-28 06:55] LABS: Glucose - Point of Care 109 mg/dl (70-99)
[2025-01-28 07:30] VITALS: BP 143/66
[2025-01-28] MEDS: NOVOLOG FLEXPEN-LOW RESISTANCE SC (08:38)
[2025-01-28 09:07] LABS: Blood Urea Nitrogen 38 mg/dl (9-20); Calcium 8.4 mg/dl (8.4-10.2); Carbon Dioxide 23 mmol/L (22-30); Chloride 110 mmol/L (98-107); Estimated Creatinine Clearance 36 ml/min; Glucose 110 mg/dl (70-99); Potassium 4.3 mmol/L (3.5-5.1); Sodium 139 mmol/L (135-145); eGFR 44.78
[2025-01-28] MEDS: ROXICODONE 5 MG PO (09:29)
[2025-01-28] MEDS: MIRALAX 17 GRAMS PO (09:40)
[2025-01-28] MEDS: DELTASONE 7.5 MG PO (09:41)
[2025-01-28] MEDS: SENOKOT-S 1 TABLET PO (09:41)
[2025-01-28] MEDS: BACTRIM DS 800 MG/160 MG 1 TABLET PO (09:41)
[2025-01-28] MEDS: TOPROL XL 50 MG PO (09:42)
[2025-01-28] MEDS: FARXIGA 10 MG PO (09:42)
[2025-01-28] MEDS: DELTASONE 10 MG PO (09:42)
[2025-01-28] MEDS: MUCINEX 600 MG PO (09:42)
[2025-01-28] MEDS: CELLCEPT 1000 MG PO (09:43)
[2025-01-28] MEDS: ELIQUIS 5 MG PO (09:44)
[2025-01-28] MEDS: NEURONTIN 300 MG PO (09:45)
[2025-01-28] MEDS: FLOMAX 0.4 MG PO (09:45)
[2025-01-28] MEDS: JANUVIA 100 MG PO (09:45)
[2025-01-28] MEDS: LASIX 40 MG PO (09:45)
[2025-01-28] MEDS: ZESTRIL 5 MG PO (09:45)
--- NOTE | 2025-01-28 11:10 | W.PN.HOSP.TC ---
Today's Communication/Plan
-
Await placement
Continue with pain control
Continue aggressive bowel regimen
Out of bed
Assessment / Plan
Assessment / Plan
General: Well Developed, Well Nourished, pain in distress,
HEENT: Normocephalic, Atraumatic, Nose Appears Normal and Ears Appear Normal
Respiratory: Clear to Auscultation
Cardiac: Regular Rhythm and S1/S2
GI: Soft, Nontender and Nondistended
Musculoskeletal: No Clubbing, No Cyanosis and No Edema
Skin: Warm and Dry
Neuro: Awake, Alert and Oriented
Psych: Calm
HPI: 89-year-old male with past medical history significant for hypothyroidism, hypertension, peripheral artery disease, AAA, CKD III, coronary artery disease, paroxysmal a-fib, DM II, HFrEF, pulmonary hypertension, depression/anxiety, interstitial
lung disease; who presented to ED for evaluation of intractable lower back pain.
Patient with recent admission for same complaint. He was found to have a L2 compression fracture and patient refused discharge to rehab; he went home with oxycodone which has not been controlling the pain. He now c/o radiation down his left leg.
He is also now unable to complete some ADLs without assistance related to pain.
A/P:
# Acute intra-articular fracture of the head of the proximal phalanx of the left 5th toe.
leland tape
denies left foot pain currently
#Intractable lower back pain likely 2/2 L2 compression fracture
MRI lumbar spine showed: mild acute superior plate compression deformity of L2. Findings suspicious for incomplete/partial insufficiency fracture at S2-3. Stable chronic compression deformity of L3, status post vertebroplasty. Mild chronic
superior endplate compression deformity of L4.
appreciate IRAD input, agree with vertebroplasty for severe intractable lower back pain,
Status post vertebroplasty L2 region by interventional radiology-pain has improved.
PT OT eval
Cont pain control:
IV morphine PRN while in the hospital,
muscle relaxant prn if needed while here
Continue with aggressive bowel regimen
#Acute urinary retention, appears to have resolved
MRI r/o spinal cord involvement
monitor with bladder scan and straight cath PRN
Started Flomax
#hypothyroidism - chronic
Continue levothyroxine
TSH 3.05
#hypertension - benign, chronic
Continue lisinopril and metoprolol
BP stable
#Hyperlipidemia - chronic
complicated by Coronary artery disease
continue rosuvastatin
# Paroxysmal a-fib - chronic
continue metoprolol
d/w with IRAD okay to restart Eliquis
# HFrEF - chronic
continue GENER[employer] BOOKKEEPER furosemide, lisinopril, Toprol, Jardiance
# rheumatoid arthritis - chronic
Continue [employer] BOOKKEEPER prednisone and Bactrim prophylaxis
#type 2 diabetes with neuropathy, A1c (01/16/2025): 6.5
AccuCheck AC & HS
SSI
continue Jardiance and sitagliptin
# interstitial lung disease - chronic
continue mycophenolate
#depression/anxiety - chronic
continue sertraline
AAA s/p repair
pulmonary hypertension
peripheral artery disease
Code status: DNR
DVT prophylaxis: [employer] BOOKKEEPER Eliquis
PT/OT started. Case management aware.
Anticipated Discharge: Today
Subjective/Interval History
-
Date of Service: January 28, 2025
States of alleviation of back pain with pain medication
Objective Data
-
Labs:
Laboratory Results
01/28/25
08:22
Sodium 139
Potassium 4.3
Chloride 110 H
Carbon Dioxide 23
BUN 38 H
Creatinine 1.5 H
Glucose 110 H
Calcium 8.4
Vital Signs:
Vital Signs
Temp Pulse Resp BP Pulse Ox
98.2 F 63 15 143/66 92
01/28/25 07:30 01/28/25 07:30 01/28/25 07:30 01/28/25 09:42 01/28/25 07:30
I&O
01/27/25 01/28/25 01/29/25
06:59 06:59 06:59
Intake Total 1702 / 1702
Output Total 50 / 50 850 / 850
Balance -50 / -50 852 / 852
[2025-01-28 11:47] LABS: Glucose - Point of Care 164 mg/dl (70-99)
--- NOTE | 2025-01-28 12:29 | CM ---
Patient seen at bedside
Chart reviewed - referrals for SNF in [facility]
Spoke with Teresita liu [facility] has bed available today
spoke with patient & son - agreeable
IMM explained & signed.
PLAN: [facility]
Report #: [phone]
Fax #: [phone]
--- NOTE | 2025-01-28 12:53 | W.DCSUMMARY ---
Discharge Summary
Discharge Data
Date of Admission: 01/20/25
Date of Discharge: 01/28/25
-
Pending Results: No
Hospital Course
89-year-old male with past medical history significant for hypothyroidism, hypertension, peripheral artery disease, AAA, CKD III, coronary artery disease, paroxysmal a-fib, DM II, HFrEF, pulmonary hypertension, depression/anxiety, interstitial lung
disease; who presented to ED for evaluation of intractable lower back pain. Patient with recent admission for same complaint. He was found to have a L2 compression fracture and patient refused discharge to rehab; he went home with oxycodone which
has not been controlling the pain. Patient was started on IV pain medication. Patient MRI lumbar spine showed: mild acute superior plate compression deformity of L2. Findings suspicious for incomplete/partial insufficiency fracture at S2-3.
Stable chronic compression deformity of L3, status post vertebroplasty. Mild chronic superior endplate compression deformity of L4. Due to persistent and severe uncontrollable pain interventional radiology was consulted. Patient underwent
vertebroplasty. Postprocedure patient pain was well-controlled. Patient was eval by physical and Occupational Therapy with plan for nursing home facility. Patient also with acute urinary retention which is seem secondary to pain.
Discharge Plan
-
Patient Disposition: Longterm/SNF
Discharge Diagnosis/Procedures: Acute intra-articular fracture of the head of the proximal phalanx of the left 5th toe.
Intractable back pain secondary to L2 compression fracture status post vertebroplasty
Acute urinary retention
Condition: Fair
Diet: 2 Gram Sodium and Diabetic, Carb Controlled
Activity: As tolerated
Driving Restrictions: As prior to admission
Referrals:
Jaylin Holguin MD [Family Provider, Internal Medicine] - in less than 1 week
Prescriptions:
New
tamsulosin 0.4 mg Capsule
0.4 mg PO DAILY 30 Days Qty: 30 0RF
lidocaine 4 % Adhesive Patch,Medicated
1 patch topical HS Qty: 10 0RF
Rx Instructions:
lower back
Continued
sulfamethoxazole-trimethoprim 800-160 mg Tablet
1 tab PO MOWEFR
mycophenolate mofetil 500 mg Tablet
1,000 mg PO BID
rosuvastatin 20 mg Tablet
20 mg PO QPM
Osteo Bi-Flex Triple Strength 750 mg-644 mg- 30 mg-1 mg Tablet
1 tab PO DAILY
Eliquis 5 mg tablet
5 mg PO BID
gabapentin 300 mg Capsule
300 mg PO BID
acetaminophen 325 mg tablet
650 mg PO Q4HPRN PRN (Reason: mild pain/fever)
guaifenesin 600 mg tablet extended release 12hr
600 mg PO Q12H
levothyroxine [Synthroid] 100 mcg Tablet
100 mcg PO HS
lisinopril 5 mg Tablet
5 mg PO DAILY
metoprolol succinate 50 mg tablet extended release 24 hr
50 mg PO DAILY
sertraline 100 mg Tablet
50 mg PO HS
prednisone 2.5 mg Tablet
17.5 mg PO DAILY
Jardiance 25 mg Tablet
12.5 mg PO DAILY
sitagliptin 100 mg Tablet
100 mg PO DAILY
furosemide [Lasix] 40 mg Tablet
40 mg PO DAILY
benzonatate 100 mg Capsule
100 mg PO TIDPRN PRN (Reason: cough)
lidocaine 4 % adhesive patch,medicated
1 patch topical HS
difluprednate 0.05 % Drops
1 drp LEFT EYE 4XD
Changed
docusate sodium [Colace] 100 mg Capsule
100 mg PO BID Qty: 0 0RF
oxycodone 5 mg Tablet
5 mg PO Q6HPRN PRN (Reason: severe pain) 3 Days Qty: 12 0RF
Discharge Orders:
Discharge Patient (As Directed); Ordered 01/28/25
Ordered By: Abdon Gorman
Discharge Date and Time
Print Language: FIJIAN
[2025-01-28] MEDS: NOVOLOG FLEXPEN-LOW RESISTANCE 1 UNITS SC (14:04)
[2025-01-28 15:25] VITALS: BP 123/58
== END 2025-01-28 16:20 | DRG 516 ==
LOC: 2 SOUTH 10:04
PROVIDERS: Internal Medicine; Radiology Vascular & Interventional Radiology; ADMITTING PHYSICIAN Internal Medicine; ATTENDING PHYSICIAN Hospitalist; EMERGENCY PHYSICIAN Student in an Organized Health Care Education/Training Program; FAMILY PHYSICIAN Internal Medicine; OTHER PHYSICIAN Student in an Organized Health Care Education/Training Program
PROC: 0QU03JZ Supplement Lumbar Vertebra with Synthetic Substitute, Percutaneous Approach (ICD-10-PCS; 2025-01-26)
DX: M48.56XG Collapsed vertebra, not elsewhere classified, lumbar region, subsequent encounter for fracture with delayed healing (principal); I13.0 Hypertensive heart and chronic kidney disease with heart failure and stage 1 through stage 4 chronic kidney disease, or unspecified chronic kidney disease; I50.22 Chronic systolic (congestive) heart failure; J84.9 Interstitial pulmonary disease, unspecified; S92.512A Displaced fracture of proximal phalanx of left lesser toe(s), initial encounter for closed fracture; Z79.01 Long term (current) use of anticoagulants; Z79.890 Hormone replacement therapy; Z79.84 Long term (current) use of oral hypoglycemic drugs; E03.9 Hypothyroidism, unspecified; N18.30 Chronic kidney disease, stage 3 unspecified; E11.22 Type 2 diabetes mellitus with diabetic chronic kidney disease; E11.51 Type 2 diabetes mellitus with diabetic peripheral angiopathy without gangrene; E11.40 Type 2 diabetes mellitus with diabetic neuropathy, unspecified; I25.10 Atherosclerotic heart disease of native coronary artery without angina pectoris; I48.0 Paroxysmal atrial fibrillation; F41.9 Anxiety disorder, unspecified; F32.A Depression, unspecified; I27.20 Pulmonary hypertension, unspecified; M06.9 Rheumatoid arthritis, unspecified; Z87.891 Personal history of nicotine dependence; Z88.5 Allergy status to narcotic agent; Z96.651 Presence of right artificial knee joint; Z86.79 Personal history of other diseases of the circulatory system; Z66 Do not resuscitate; E78.5 Hyperlipidemia, unspecified
CPT/HCPCS: 22514; 72148; 73620; 80048; 80053; 82962; 83735; 84443; 85025; 85027; 85610; 93005; 97116; 97166; 97530; 97535; 99285

== ENCOUNTER 2025-02-13 15:58 | Inpatient (IN) | payer MEDICARE, OTHER, SELFPAY ==
[2025-02-13] VITALS (49 sets, daily range): BP systolic 75–147; BP diastolic 36–105; BMI 28.7
[2025-02-13 12:00] LABS: Glucose - Point of Care < 10 mg/dl (70-99)
[2025-02-13 12:03] LABS: Glucose - Point of Care 237 mg/dl (70-99)
[2025-02-13 12:22] LABS: % Basophils 0.2 % (0-2); % Eosinophils 0.2 % (0-6); % Immature Granulocytes 0.8 % (0-0.5); % Lymphocytes 13.9 % (20.5-51.1); % Monocytes 9.1 % (1.7-9.3); % Neutrophils 75.8 % (42.2-75.2); Absolute Immature Granulocytes 0.1 10^3/uL (0-0.05); Absolute Lymphocytes 1.3 10^3/uL (1.2-3.4); Absolute Monocytes 0.9 10^3/uL (0.1-0.6); Absolute Neutrophils 7.1 10^3/uL (1.4-6.5); Hemoglobin 9.3 g/dL (13.0-18.0); Mean Corpuscular Hgb 29.5 pg (27.0-31.0); Mean Corpuscular Volume 95.2 fL (80.0-94.0); Mean Platelet Volume 9.7 fL (7.4-10.4); Nucleated Red Blood Cells % 0.3 % (-); Platelet Count 214 10^3/uL (130-400); Red Blood Cell Count 3.15 10^6/uL (4.70-6.10); White Blood Cell Count 9.4 10^3/uL (4.8-10.8)
--- NOTE | 2025-02-13 12:29 | ED.GENMED ---
History of Present Illness
General
Chief Complaint: Blood Sugar Problem
Time Seen by Provider: 02/13/25 12:29
History of Present Illness
History of Present Illness:
TIME OF INITIAL EVALUATION
- 12:30pm
REVIEW OF OLD RECORDS
- Patient came in from [facility] with confusion and initial blood sugar was 55 and was given D10 250 mL prior to arrival. The patient was admitted here 2 weeks ago with intractable low back pain
Note:
CHIEF COMPLAINT(S)
Confusion and low blood pressure.
HISTORY OF PRESENT ILLNESS
The patient, an 89-year-old male, with a history of being self-sufficient until recently, presents with confusion. The patient has been residing at [facility] since June. Three weeks ago, the patient underwent a kyphoplasty for an L2
compression fracture at this facility. Post-operatively, he was transferred to [place] for rehabilitation and returned to [facility] three days ago. Since his return, his condition has deteriorated, with blood pressure readings fluctuating and
reported as low. He expresses an inability to get up due to weakness in the back and lower extremities. Currently, the patient is receiving management for pain, which he describes as persisting despite the absence of physical touch. A recent
evaluation at [place] cleared him for return to assisted living, where he was placed for medication management.
ADDITIONAL HISTORY OBTAINED FROM SOURCES OTHER THAN THE PATIENT
According to a family member, the patient generally has good cognitive function and shows no history of dementia. However, confusion has been noted recently, which prompted the current visit.
PHYSICAL EXAM
- Cardiovascular: Blood pressure readings fluctuating, primarily low. Easily palpable pulse despite low readings, I took a manual blood pressure which was 60/30 in the right AC region.
- Neurological: The patient appears to be somewhat confused but knows he is at [facility] and knows it is January, moves all extremities equally but weakly
- General: The patient appears chronically ill
- HEENT: Markedly hard of hearing
- Pulmonary: No respiratory distress, breath sounds are clear and equal
- Abdomen: Soft but with diffuse abdominal tenderness
- Psychiatric: Appropriate mental status, normal insight and judgement
- Extremities: Nontender, no edema, moves all extremities equally
- Skin: No rash, no lesions
PLAN
- Administer intravenous fluids aggressively to address hypotension.
- Order additional blood tests to investigate underlying causes of hypotension and confusion.
- Obtain a urine catheter specimen for analysis.
- Consult external records for recent medical interventions and evaluations.
- Monitor blood pressure closely and adjust interventions as needed.
DIFFERENTIAL DIAGNOSIS
The differential diagnosis includes, in no particular order and is not limited to:
- Hypotension secondary to dehydration
- Urinary tract infection
- Post-operative complications
- Medication side effects
- Electrolyte imbalances
- Acute kidney injury
- Heart failure
- Stroke or transient ischemic attack
- Adverse reaction to anticoagulation therapy (e.g., apixaban)
- Infection leading to sepsis
- Contrast-induced nephropathy
RADIOLOGY
- Extensive CT imaging obtained
EKG
- Sinus 83, left axis deviation, nonspecific ST
LABS
- White count 9.4, hemoglobin 9.3 which is just slightly lower than recent baseline, glucose upon arrival here 237, creatinine 3.1, glucose 243, bicarb 18
UPDATE
- Pain persist while in the ED�gave Dilaudid at low-dose
ASSESSMENT
Confusion and low blood pressure with a suspected urinary tract infection, potential past pseudomonas infection
EMERGENCY TREATMENTS ADMINISTERED
Administered dilaudid for pain management. IV fluids, Levophed.
PLAN
Admit to the hospital for management of low blood pressure and antibiotics to cover for potential pseudomonas urinary tract infection.
INDEPENDENT REVIEW OF LABS AND INTERPRETATION OF TESTS
- My independent review of the urine analysis suggests infection due to white cells present.
- My independent interpretation of the CT scan of the brain, chest, abdomen, and pelvis no definite acute abnormality, endograft again seen
ADDITIONAL TESTING AND IMAGING CONSIDERED
Consider use of Levophed if blood pressures remain low to maintain blood pressure artificially.
MEDICATION RECONCILIATION
Dilaudid administered for pain. Consideration of initiation of antibiotherapy covering pseudomonas.
MEDICAL DECISION MAKING
1. Number & Complexity of Problems: Chronic conditions affecting care include potential recurrent infection by pseudomonas and fluctuating blood pressures.
2. Data Reviewed: Reviewed urine analysis and CT scan.
3. Risk: Admission to the hospital due to complexity and risk of hypotension and potential infections.
PATHOLOGIES TO CONSIDER
- Sepsis due to hypotension and suspected infection.
- Urinary Tract Infection considering urine lab results and pseudomonas history.
Dr. Zamarripa accepts to his service for further management
Past History
Past History
ED Past Medical History: CHF, HTN and Other (Interstitial lung disease)
ED Past Surgical History: Orthopedic (Right knee replacement, kyphoplasty) and Other (Left carotid endarterectomy, aortic aneurysm repair)
Social History
Tobacco: Non-smoker
Alcohol: None
Drug: None
Phy Exam
Physical Exam
Physical Exam:
See HPI
Course
Orders/Labs/Results
Orders:
Orders
02/13/25
Electrocardiogram (*1) Stat
Comment: ALREADY DONE
02/13/25 12:11
Basic Metabolic Panel Urgent
Complete Blood Count/With Diff Urgent
02/13/25 12:42
Straight cath- Treatment ONCE
0.9% Sodium Chloride 1000 ml [Nss] 1,000 ml IV BOLUS
02/13/25 12:44
CT Chest/abd/pel Wo Iv Cont Urgent
Reason For Exam: severe hypotension and pain
02/13/25 12:45
CT Head W/o Iv Contrast Urgent
Comment:
Reason For Exam: alt ms
02/13/25 12:51
Lactic Acid Q4H
Comment: CANCEL 2nd LACTIC ACID IF 1st LACTIC ACID IS LESS THAN 2
Blood Culture Q30M
KIKA Source: Blood/Venous
Specimen Description:
02/13/25 12:52
Urinalysis Reflex To Culture Urgent
Date Specimen was Collected: 02/13/25
Time Specimen was Collected: 12:44
Urine Microscopic Reflex Cult Urgent
Blood Culture Q30M
KIKA Source: Blood/Venous
Specimen Description:
Urine Culture Urgent
KIKA Source: U
Specimen Description:
Date Specimen was Collected: 02/13/25
Time Specimen was Collected: 12:44
02/13/25 13:56
0.9% Sodium Chloride 1000 ml [Nss] 1,000 ml IV BOLUS
02/13/25 14:29
Cefepime HCl [Maxipime] 1,000 mg IV NOW STA
HYDROmorphone [Dilaudid] 0.5 mg IV NOW STA
02/13/25 14:31
0.9% Sodium Chloride 1000 ml [Nss] 1,000 ml IV BOLUS
02/13/25 14:33
Sterile Water [Sterile Water For Injection] 10 ml .ROUTE .STK-MED ONE
02/13/25 16:45
Lactic Acid Q4H
Comment: CANCEL 2nd LACTIC ACID IF 1st LACTIC ACID IS LESS THAN 2
Abnormal Lab Results
02/13/25 02/13/25 02/13/25
11:58 12:01 12:11
RBC 3.15 L 10^6/uL
(4.70-6.10)
Hgb 9.3 L g/dL
(13.0-18.0)
Hct 30.0 L %
(39.0-52.0)
MCV 95.2 H fL
(80.0-94.0)
MCHC 31.0 L g/dL
(33.0-37.0)
RDW 16.0 H %
(11.5-14.5)
Abs Immat Gran (auto) 0.1 H 10^3/uL
(0-0.05)
Absolute Neuts (auto) 7.1 H 10^3/uL
(1.4-6.5)
Absolute Monos (auto) 0.9 H 10^3/uL
(0.1-0.6)
Immature Gran % 0.8 H %
(0-0.5)
Neutrophils % 75.8 H %
(42.2-75.2)
Lymphocytes % 13.9 L %
(20.5-51.1)
Sodium 131 L mmol/L
(135-145)
Carbon Dioxide 18 L mmol/L
(22-30)
BUN 52 H mg/dl
(9-20)
Creatinine 3.1 H mg/dL
(0.7-1.3)
Glucose 243 H mg/dl
(70-99)
Lactic Acid
Calcium 8.0 L mg/dl
(8.4-10.2)
Ur Occult Blood Reflex
Leukocyte Esterase Rfl
Urine WBC (Reflex)
Urine Bacteria (Reflex)
Urine Albumin (Reflex)
POC Glucose < 10 L* mg/dl 237 H mg/dl
(70-99) (70-99)
02/13/25 02/13/25
12:51 12:52
RBC
Hgb
Hct
MCV
MCHC
RDW
Abs Immat Gran (auto)
Absolute Neuts (auto)
Absolute Monos (auto)
Immature Gran %
Neutrophils %
Lymphocytes %
Sodium
Carbon Dioxide
BUN
Creatinine
Glucose
Lactic Acid 3.5 H mmol/L
(0.7-2.0)
Calcium
Ur Occult Blood Reflex 3+ A
(Negative)
Leukocyte Esterase Rfl 3+ A
(Negative)
Urine WBC (Reflex) 21-25 A /HPF
(0-5)
Urine Bacteria (Reflex) Moderate A
(Negative)
Urine Albumin (Reflex) 3+ A
(Neg - Trace)
POC Glucose
02/13/25 12:11
02/13/25 12:11
Vital Signs
Initial and Last Documented VS:
Initial Vital Signs
Temp Pulse Resp Pulse Ox
36.7 C 87 16 96
02/13/25 11:55 02/13/25 11:55 02/13/25 11:55 02/13/25 11:55
Last Documented Vital Signs
Temp Pulse Resp BP Pulse Ox
36.7 C 85 17 78/51 91
02/13/25 11:55 02/13/25 14:58 02/13/25 13:20 02/13/25 14:58 02/13/25 14:58
*Pulse Oximetry
SaO2: 91
Oxygen Mode of Delivery: Room air
Patient hypoxic: yes
*[employer] Hearing Officer Interpretation
Rate: normal
Interpretation: normal
Heart Rate: 80
Rhythm: sinus
*Critical Care Note
Total Time (30-74mins, 75-104mins- exclusive of procedures): 55min
comment:
Patient remains hypotensive despite fluids. Pressors started.
ED Attending Note
-
Portions of this chart may have been created with voice recognition software.� Occasional wrong word or��sound alike� substitutions may have occurred due to the inherent limitations of voice recognition software.
Discharge Plan
Departure
Patient Disposition: Admit
Date of Disposition: 02/13/25
Time of Disposition: 15:01
Presentation/result/management discussed w/ accepting MD/DO: Hospitalist
Discharge Problem:
Severe sepsis
Prescriptions:
No Action
sulfamethoxazole-trimethoprim 800-160 mg Tablet
1 tab PO MOWEFR
mycophenolate mofetil 500 mg Tablet
1,000 mg PO BID
Eliquis 5 mg tablet
5 mg PO BID
gabapentin 300 mg Capsule
300 mg PO BID
acetaminophen 325 mg tablet
650 mg PO Q4HPRN PRN (Reason: mild pain/fever)
guaifenesin 600 mg tablet extended release 12hr
600 mg PO Q12H
levothyroxine [Synthroid] 100 mcg Tablet
100 mcg PO HS
lisinopril 5 mg Tablet
5 mg PO DAILY
metoprolol succinate 50 mg tablet extended release 24 hr
50 mg PO DAILY
prednisone 2.5 mg Tablet
17.5 mg PO DAILY
Jardiance 25 mg Tablet
12.5 mg PO DAILY
sitagliptin 100 mg Tablet
100 mg PO DAILY
furosemide [Lasix] 40 mg Tablet
40 mg PO DAILY
benzonatate 100 mg Capsule
100 mg PO Q8HPRN PRN (Reason: cough)
difluprednate 0.05 % Drops
1 drp LEFT EYE QID
docusate sodium [Colace] 100 mg Capsule
100 mg PO BID Qty: 0 0RF
atorvastatin 40 mg Tablet
40 mg PO HS
methocarbamol 500 mg Tablet
500 mg PO Q6HPRN PRN (Reason: muscle spasms)
ondansetron HCl 4 mg Tablet
4 mg PO Q6HPRN PRN (Reason: nausea/vomiting)
sertraline 50 mg Tablet
50 mg PO HS
saxagliptin 5 mg Tablet
5 mg PO DAILY
Desitin Rapid Relief 13 % Cream
1 applic TOPICAL BID
Patient Comments:
apply to sacrum
Zwctxyqwqpw-[id number]-MGC Complex 548-603-44-0.5 mg Tablet
1 tab PO DAILY
lidocaine 4 % adhesive patch,medicated
1 patch topical DAILY
Rx Instructions:
lower back
oxycodone 5 mg tablet
5 mg PO Q6HPRN PRN (Reason: moderate pain)
tamsulosin 0.4 mg capsule
0.4 mg PO DAILY
Referrals:
UNKNOWN - PT NOT,INTERVIEWE [Family Provider]
Interventions
Interventions:
*Risk Screen - Suicide Last Done: 02/13/25 12:05
*General Assessment Last Done: 02/13/25 12:05
*Neglect/Abuse Screening Last Done: 02/13/25 12:05
*ED- Fall Risk Assessment Last Done: 02/13/25 12:05
*ED COVID-19 Vaccine History Last Done: 02/13/25 12:05
ED- Neurological Assessment Last Done: 02/13/25 12:09
Discharge Date and Time
Print Language: TURKMEN
[2025-02-13 12:52] LABS: Blood Urea Nitrogen 52 mg/dl (9-20); Carbon Dioxide 18 mmol/L (22-30); Chloride 102 mmol/L (98-107); Glucose 243 mg/dl (70-99); Sodium 131 mmol/L (135-145); eGFR 18.74
[2025-02-13] MEDS: NSS 1000 IV ×4 (12:54→18:25)
[2025-02-13 13:09] LABS: Urine Albumin 3+ (Neg - Trace); Urine Bilirubin Negative (Negative); Urine Character Slightly Cloudy (Clear); Urine Color Yellow; Urine Glucose Negative (Negative); Urine Ketone Negative (Negative); Urine Leukocyte 3+ (Negative); Urine Nitrite Negative (Negative); Urine Occult Blood 3+ (Negative); Urine Specific Gravity 1.015 (<1.030); Urine Urobilinogen Negative (Neg - 1+)
[2025-02-13 13:18] LABS: Lactic Acid 3.5 mmol/L (0.7-2.0)
[2025-02-13 13:54] LABS: Urine Bacteria Moderate (Negative); Urine Red Blood Cell 0-2 /HPF (0-2); Urine White Cell 21-25 /HPF (0-5)
[2025-02-13] MEDS: DILAUDID 0.5 MG IV (14:31)
[2025-02-13] MEDS: MAXIPIME 1000 MG IV (14:34)
[2025-02-13] MEDS: LEVOPHED 250 IV (15:13)
--- NOTE | 2025-02-13 15:38 | PHA.VAN.IN ---
Assessment
- Assessment
Renal Function: SCR Appears Elevated from baseline (SCr 3.1 today, up from baseline of 1.2-1.7)
Concomitant Antimicrobials: Cefepime x1
AUC Dosing Plan
- Dosing Variables
Dosing Weight (kg): 91.8
Dosing CrCl (ml/min): 17
Vd coefficient (L/kg): 0.7
Plan
- Plan
Initial / Loading Dose: 2000mg
Maintenance Regimen: Dosing by level
Monitoring: Random level 02/14/25 with AM labs
Pharmacokinetics Vancomycin I
- -
Patient Age: 89
Patient Sex: Male
Vancomycin Day #: 1
Indication: Other
Requesting Provider: Dr. Lawrence
Pertinent Antimicrobial Allergies:
No pertinent allergies to ABX
Height / Weight:
Height 5 ft 10 in
Actual Weight 91.8 kg
Pertinent Past Medical History: L2 compression fracture s/p kyphoplasty December 2024
- Vital Signs / Lab Results
Temp Pulse Resp BP Pulse Ox
98.1 F 88 17 75/40 94
02/13/25 11:55 02/13/25 15:25 02/13/25 13:20 02/13/25 15:25 02/13/25 15:29
Lab Results - Hematology
02/13/25
12:11
WBC 9.4
Lab Results - Chemistry
02/13/25
12:11
BUN 52 H
Creatinine 3.1 H
02/13/25
12:51
Lactic Acid 3.5 H
Lab Results - Urine
02/13/25
12:52
Urine Nitrite (Reflex) Negative
Leukocyte Esterase Rfl 3+ A
Urine WBC (Reflex) 21-25 A
Ur Squamous Epith Cells 6-10
Urine Bacteria (Reflex) Moderate A
[2025-02-13] MEDS: DECADRON 4 MG IV (15:40)
[2025-02-13] MEDS: VANCOCIN 540 MG IV (15:40)
--- NOTE | 2025-02-13 15:42 | CON.INTV ---
Consultation
Consultation Request
Date/Time Consultation Requested: 02/13/2025
Date/Time Consultation Performed: 02/13/2025
Requesting Provider: Dr. Lawrence
Performing Provider: Dr. Mateus Perez
Reason for Consultation: Septic shock
Medical History
-
History of Present Illness:
89-year-old man with history of known abdominal aortic aneurysm, originally had planned surgery for 04/18/2024. Patient also has history of rheumatoid arthritis on prednisone, MMF and prophylactic Bactrim. He got postponed due to not holding
anticoagulation. Procedure was scheduled for 04/21/2024. In the interim, on 04/19/2024 patient developed UTI symptoms. Culture positive with Pseudomonas-poorly treated at that time.
Surgery underwent on 04/21/[address] Berumen.
Patient was self-sufficient until recently.
-
Patient also had an admission from December 2024 in January 2025. For intractable lower back pain. He was found to have L2 compression fracture. Patient initially discharged home with narcotics.
During that admission he underwent vertebroplasty by interventional radiology.
He also developed urinary retention at that time due to back pain. Discharged on 01/28/2025.
-
Readmitted 02/13/2025: Transferred to the emergency room from [facility] with confusion, hypoglycemia. After his vertebroplasty he was discharged to [facility] and subsequently transferred back to [facility] which he has been living there
since June 2024.
Inability to walk or stand up properly due to back and lower extremity weakness.
Per family reports patient usually with no signs of dementia. He was noted to be more confused what prompted hospitalization.
Patient found to be hypotensive. Required aggressive fluid resuscitation in the emergency room. Urinalysis consistent with possible UTI.
Past Medical History
Past Medical History: Other (See assessment and plan section)
Social History
Tobacco: Smoker
Alcohol: None
Drug: None
Living: Assisted Living
Employment: Retired
Family History
Family History: Reviewed & Not Pertinent
Allergies / Home Medications
Allergies
Allergy/AdvReac Type Severity Reaction Status Date / Time
codeine Allergy Vomiting Verified 01/21/25 18:18
Per
Facility
Home Medications
�Medication �Instructions �Recorded �Confirmed �Last Taken �Type
mycophenolate mofetil 500 mg tablet 1,000 mg PO BID interstitial lung 03/03/24 02/13/25 04/17/24 16:45 History
disease
sulfamethoxazole 800 1 tab PO MOWEFR Infection 03/03/24 02/13/25 04/16/24 12:00 History
mg-trimethoprim 160 mg tablet prophylaxis
apixaban 5 mg tablet (Eliquis) 5 mg PO BID AFib 04/19/24 02/13/25 Unknown History
gabapentin 300 mg capsule 300 mg PO BID Pain 06/08/24 02/13/25 Unknown History
acetaminophen 325 mg tablet 650 mg PO Q4HPRN PRN mild 08/12/24 02/13/25 Unknown History
pain/fever
guaifenesin 600 mg tablet, 600 mg PO Q12H Cough 08/12/24 02/13/25 Unknown History
extended release 12 hr
levothyroxine 100 mcg tablet 100 mcg PO HS Thyroid 11/03/24 02/13/25 Unknown History
(Synthroid)
lisinopril 5 mg tablet 5 mg PO DAILY Blood Pressure 11/03/24 02/13/25 Unknown History
metoprolol succinate 50 mg 50 mg PO DAILY Blood Pressure 11/03/24 02/13/25 Unknown History
tablet,extended release 24 hr
empagliflozin 25 mg tablet 12.5 mg PO DAILY Diabetes 12/08/24 02/13/25 Unknown History
(Jardiance)
prednisone 2.5 mg tablet 17.5 mg PO DAILY Anti-Inflammatory 12/08/24 02/13/25 Unknown History
sitagliptin 100 mg tablet 100 mg PO DAILY Diabetes 12/08/24 02/13/25 Unknown History
furosemide 40 mg tablet (Lasix) 40 mg PO DAILY Fluid 01/15/25 02/13/25 Unknown History
Retention/Swelling
benzonatate 100 mg capsule 100 mg PO Q8HPRN PRN cough 01/19/25 02/13/25 Unknown History
difluprednate 0.05 % eye drops 1 drp LEFT EYE QID Eye Condition 01/21/25 02/13/25 01/21/25 History
docusate sodium 100 mg capsule 100 mg PO BID Constipation #0 caps 01/28/25 02/13/25 Unknown Rx
(Colace)
atorvastatin 40 mg tablet 40 mg PO HS High Cholesterol 02/13/25 02/13/25 Unknown History
glucosamine 375 ie-rbnorskzl-xgq 1 tab PO DAILY Supplement 02/13/25 02/13/25 Unknown History
no1 500 mg-C 15 mg-nissa 0.5 mg
tablet
(Vwlalycevkr-Kxexwaqtfpi-ZHU
Complex)
lidocaine 4 % topical patch 1 patch topical DAILY Pain 02/13/25 02/13/25 Unknown History
methocarbamol 500 mg tablet 500 mg PO Q6HPRN PRN muscle spasms 02/13/25 02/13/25 Unknown History
ondansetron HCl 4 mg tablet 4 mg PO Q6HPRN PRN nausea/vomiting 02/13/25 02/13/25 Unknown History
oxycodone 5 mg tablet 5 mg PO Q6HPRN PRN moderate pain 02/13/25 02/13/25 Unknown History
saxagliptin 5 mg tablet 5 mg PO DAILY Diabetes 02/13/25 02/13/25 Unknown History
sertraline 50 mg tablet 50 mg PO HS Mental Health 02/13/25 02/13/25 Unknown History
tamsulosin 0.4 mg capsule 0.4 mg PO DAILY Urinary Issue 02/13/25 02/13/25 Unknown History
zinc oxide 13 % topical cream 1 applic topical BID Skin Issues 02/13/25 02/13/25 Unknown History
Review of Systems
Vitals / Labs / Diagnostic Testing
Vital Signs
Temp Pulse Resp BP Pulse Ox
98.1 F 88 17 75/40 94
02/13/25 11:55 02/13/25 15:25 02/13/25 13:20 02/13/25 15:25 02/13/25 15:29
Lab Data
02/13/25 12:11
Diagnostic Testing:
Assessment
-
89-year-old man with past medical history noted. Multiple admissions to the hospital the last year. More recently status post vertebroplasty due to severe pain. Discharged to [facility] and subsequently to [facility].
Condition has been declining over the last year.
Admitted with confusion, found to be hypotensive with acute kidney injury. Abnormal UA suggestive of UTI and sepsis.
Septic shock
Suspected urinary source
Urinalysis: 3+ leukocyte esterase/20-25 WBCs/moderate bacteria.
CT chest abdomen pelvis: Cholelithiasis. No evidence for cholecystitis. Diffuse wall thickening of urinary bladder. Stable pulmonary fibrosis. Advanced coronary and aortic atherosclerosis.
Toxic metabolic encephalopathy
CT head 02/13/2025: Reviewed, no acute abnormalities. Small chronic left frontal infarct. Sphenoid sinusitis
Chronic immunosuppression on CellCept/prednisone
Ambulatory dysfunction due to chronic back pain since lumbar compression fracture status post vertebroplasty 01/2025
acute on chronic back pain.
Acute on chronic kidney disease
Hyperglycemia-received some D10 due to low blood sugars. Follow
Conditions present prior admission:
Compression fracture status post vertebroplasty 01/2025
Ambulatory dysfunction
Rheumatoid arthritis on CellCept and 7.5 mg of prednisone
Chronic back pain on narcotics
Abdominal aortic aneurysm status post EVAR 04/21/2024
Rheumatoid arthritis on MMF/prednisone and prophylactic Bactrim.
Coronary artery disease-multivessel
Type 2 diabetes
Atrial fibrillation-on anticoagulation
Interstitial lung disease/pulmonary fibrosis-he moved recently from [place]. Only uses oxygen at night.
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
Follows up with Dr. Elder.
Hypertension
Heart failure with reduced ejection fraction.
Echocardiogram 06/11/2024: Mildly reduced LVEF. 50%. Hypokinesis basal to mid inferior wall. Mild enlarged right ventricle. Normal biventricular systolic function. Severe pulmonary hypertension.
History of urinary retention
BPH
-
Assessment and plan:
Critically ill septic shock with toxic metabolic encephalopathy.
Urinary source suspected based on urinalysis
Agree with broad-spectrum antibiotics for now
Follow cultures
-
Septic shock:
Continue vasopressors to target mean arterial blood pressure 65 mmHg
Currently on Levophed at 6 mics.
Patient does have acute on chronic kidney disease-follow renal function electrolytes
Initial lactic acid 3.5-follow
Status post IV fluid resuscitation-no further aggressive fluid resuscitation given underlying pulmonary hypertension, chronic kidney disease and heart failure.
Watch for volume overload.
Hold antihypertensive for now.
Agree with the stress dose of the steroids
No evidence for pulmonary vascular congestion on CAT scan.
-
-
Acute on chronic kidney disease
Maintain systolic blood pressure per 65 mmHg
Avoid nephrotoxins
Nephrology consulted-Case discussed with nephrology. Supportive care for now.
May need Berumen catheter if patient unable to void.
-
Rheumatoid arthritis/pulmonary fibrosis-on CellCept and prednisone.
Pulmonary hypertension on echocardiogram: Likely multiple mechanisms.
Provide oxygen therapy to maintain pulse ox above 90%.
With septic shock hold CellCept.
Hold TMP sulfa for now uses for prophylaxis.
Agree with the stress dose of the steroids.
-
Toxic metabolic encephalopathy secondary to above
Hold gabapentin for today due to mental status change.
Hold any other sedatives or narcotics.
May use antipsychotics as necessary.
Fall precautions
Restraints as necessary
-
Type 2 diabetes:
Usually on oral hypoglycemics.
Patient was hypoglycemic earlier. Did receive D10. Monitor closely.
Watch hyperglycemia closely particularly on steroids
If becomes hypoglycemic may need insulin drip.
-
Back pain due to compression fractures status post kyphoplasty 01/2025
Ambulatory dysfunction
Unfortunately, patient very uncomfortable with backs spasms, complaining of significant back pain, very uncomfortable.
Son at the bedside, discussed with son he would like father to be as comfortable as possible while we treat his infection.
Okay with morphine and Ativan if necessary.
Patient currently n.p.o. due to poor mental status unable to take oral pain medications.
Will add IV Tylenol.
IV morphine as needed
IV Ativan as needed
Son understands that this may impair his breathing and subsequently can even lead to . He understands and he rather patient be comfortable as he is quality of life has significant decline over the last month or longer.
-
N.p.o.
DVT prophylaxis maintain anticoagulation
-
DNR status noted
-
Extensive discussion with son at the bedside regarding clinical situation. Unfortunately prognosis is guarded if we will going to use narcotics for pain. Will try to limit as possible the patient currently is very uncomfortable and son would like
some relief for his father.
-
Follow-up with Dr. Elder after discharge
-
Critical care statement: A total of 90 minutes of critical care time was provided for this patient today. This includes management of unstable vital signs, evaluation of the patient at bedside, reviewing the patient's pertinent medical records
including ventilator settings, arterial blood gases, radiographs, microbiology, laboratory evaluations and discussion with primary team, critical care nursing, and respiratory therapy.
[2025-02-13 15:50] LABS: Glucose - Point of Care 93 mg/dl (70-99)
--- NOTE | 2025-02-13 16:03 | HPS.HSE ---
Family Physician
-
Family Physician: INTERVIEWE UNKNOWN - PT NOT
Chief Complaint
-
altered mental state
History of Present Illness
89 male history of hypothyroidism, hypertension, peripheral artery disease, AAA, CKD stage III, CAD, paroxysmal atrial fibrillation on Eliquis, diabetes type 2, HFrEF, pulmonary hypertension, ILD/RA, depression presented from assisted living
facility after being found with altered mental state and an his stool. At this time history is limited as he is extremely hard of hearing, hearing aids were charging and presented encephalopathic. Son at bedside who states that this is not his
normal state.
Per son has diffuse pain, has been in significant back pain for a long time with no change from recent kyphoplasty with IR at within the last 1 month.
In the ED found to have a BG of <10, wbc 9.4, hgb 9.3, plt count 214. Na 131, Hco3 18. Cr of 3.1. Lactate 3.5. CT Head no acute abnormalities. CTChest Abd Pelvis ?cystitis, dilation of gallbladder and prob cholelithiasis. Recieved 30cc/kg, cefepime,
diladid along with Levophed.
Medical History
Past Medical History
Past Medical History: Reports CAD, CHF, GERD, HTN, Hypercholesterolemia, Hypothyroidism, NIDDM and Renal Failure
Past Surgical History: Reports Other
Social History
Unable to obtain full social history at this time due to: Acuity
Family History
Family History: Not pertinent
Allergies / Home Medications
Allergies reflects when Allergies were last updated in [facility].
Home Medications with original date entered in [facility]
Allergy/Medication List:
Allergies
Allergy/AdvReac Type Severity Reaction Status Date / Time
codeine Allergy Vomiting Verified 01/21/25 18:18
Per
Facility
Home Medications
mycophenolate mofetil 500 mg tablet 1,000 mg PO BID interstitial lung disease 03/03/24
sulfamethoxazole 800 mg-trimethoprim 160 mg tablet 1 tab PO MOWEFR Infection prophylaxis 03/03/24
apixaban 5 mg tablet (Eliquis) 5 mg PO BID AFib 04/19/24
gabapentin 300 mg capsule 300 mg PO BID Pain 06/08/24
acetaminophen 325 mg tablet 650 mg PO Q4HPRN PRN mild pain/fever 08/12/24
guaifenesin 600 mg tablet, extended release 12 hr 600 mg PO Q12H Cough 08/12/24
levothyroxine 100 mcg tablet (Synthroid) 100 mcg PO HS Thyroid 11/03/24
lisinopril 5 mg tablet 5 mg PO DAILY Blood Pressure 11/03/24
metoprolol succinate 50 mg tablet,extended release 24 hr 50 mg PO DAILY Blood Pressure 11/03/24
empagliflozin 25 mg tablet (Jardiance) 12.5 mg PO DAILY Diabetes 12/08/24
prednisone 2.5 mg tablet 17.5 mg PO DAILY Anti-Inflammatory 12/08/24
sitagliptin 100 mg tablet 100 mg PO DAILY Diabetes 12/08/24
furosemide 40 mg tablet (Lasix) 40 mg PO DAILY Fluid Retention/Swelling 01/15/25
benzonatate 100 mg capsule 100 mg PO Q8HPRN PRN cough 01/19/25
difluprednate 0.05 % eye drops 1 drp LEFT EYE QID Eye Condition 01/21/25
docusate sodium 100 mg capsule (Colace) 100 mg PO BID Constipation #0 caps 01/28/25
atorvastatin 40 mg tablet 40 mg PO HS High Cholesterol 02/13/25
glucosamine 375 en-adbdsvxuk-xpy no1 500 mg-C 15 mg-nissa 0.5 mg tablet (Juagienimwa-Zqptxtztopg-PTO Complex) 1 tab PO DAILY Supplement 02/13/25
lidocaine 4 % topical patch 1 patch topical DAILY Pain 02/13/25
methocarbamol 500 mg tablet 500 mg PO Q6HPRN PRN muscle spasms 02/13/25
ondansetron HCl 4 mg tablet 4 mg PO Q6HPRN PRN nausea/vomiting 02/13/25
oxycodone 5 mg tablet 5 mg PO Q6HPRN PRN moderate pain 02/13/25
saxagliptin 5 mg tablet 5 mg PO DAILY Diabetes 02/13/25
sertraline 50 mg tablet 50 mg PO HS Mental Health 02/13/25
tamsulosin 0.4 mg capsule 0.4 mg PO DAILY Urinary Issue 02/13/25
zinc oxide 13 % topical cream 1 applic topical BID Skin Issues 02/13/25
Review of Systems
-
Unable to obtain full review of systems at this time due to: Acuity
Physical Exam
Vital Signs
Vital Signs
Temp Pulse Resp BP Pulse Ox
98.1 F 90 17 100/50 94
02/13/25 11:55 02/13/25 15:50 02/13/25 13:20 02/13/25 15:50 02/13/25 15:29
Physical Exam
General: Well Developed, Well Nourished, Appears in Distress, Pain, Obese and Other (diffuse pain, jumping out of bed)
HEENT: NormoCephalic, Anicteric and Hearing Impaired; No Moist mucous membranes (dry)
Respiratory: Clear
Cardiac: S1/S2 and Regular Rhythm
GI: Soft, Non Tender, Non Distended and Other (suprapubic tenderness)
Musculoskeletal: No Clubbing and Other (poor cap flow - slow >3seconds. right great hallux with blister)
Neuro: Awake
Psych: Other
Laboratory Results
-
02/13/25 12:11
Laboratory Results
Lactic Acid 3.5 mmol/L (0.7-2.0) H 02/13/25 12:51
Impression/Plan
-
Septic shock likely source urinary tract.. Nurse has not urinated. Had a straight cath for sample.
- Cefepime
- Urine culture along with blood culture
--If culture data positive for gram-positive then would likely require back imaging as recent kyphoplasty and would add vancomycin at that time
- S/p 30 cc/kg ED complete sepsis bundle
- Levophed
- Maintain MAP greater than 65
- Stress dose steroids
Hypoglycemia
- On BMP in the 200s but this was after dextrose and being on a dextrose drip
- Poor blood flow distally in fingertips therefore not sure how accurate fingersticks or
�Repeat BMP now
- If truly hypoglycemic continue D10 drip at low rate
NIKO on CKD stage III with a baseline creat of around 1.5
-Potentially postobstructive versus intrinsic renal versus prerenal/ATN
- Obtain urine studies
- Obtain bladder scan
--If Noted Retention then will need to place Berumen. Per son has a history of chronic Berumen that was removed sometime ago
- Avoid nephrotoxins hypotension
- IV fluids
ILD
Not requiring supplemental oxygen
On Plaquenil and methotrexate
On 17.5 mg prednisone daily
-Will convert oral prednisone to stress dose steroids
-Hold Plaquenil and methotrexate as immunosuppressed
Hypothyroidism
Continue Synthroid
P A-fib currently in sinus rhythm
Monitor on telemetry
Continue Eliquis
Hold beta-eugene
HFrEF, chronic
Hold Lasix in the setting of NIKO septic
Hold lisinopril in the setting of septic shock/NIKO
Hold Toprol in the setting of septic shock
Hold Jardiance in the setting of likely cystitis
Type 2 diabetes
Accu-Cheks
Sliding scale
Hold Jardiance sitagliptin.
Interested late looking at med rec from [facility] also on a second DPP 4. On discharge this will need to be rectified as he should only be 1 the DPP 4 is do not typically cause hypoglycemia
Depression anxiety chronic
Continue sertraline
AAA s/p repair
Pulmonary hypertension and PAD
DNR
[2025-02-13 16:22] LABS: Blood Urea Nitrogen 47 mg/dl (9-20); Calcium 7.1 mg/dl (8.4-10.2); Carbon Dioxide 16 mmol/L (22-30); Chloride 111 mmol/L (98-107); Estimated Creatinine Clearance 19 ml/min; Glucose 89 mg/dl (70-99); Potassium 3.9 mmol/L (3.5-5.1); Sodium 134 mmol/L (135-145)
[2025-02-13 16:42] LABS: Direct Bilirubin 0.3 mg/dl (0.0-0.4)
--- NOTE | 2025-02-13 16:54 | W.CON.NEPH ---
Consultation
-
Date/Time Consultation Requested: 02/13/25 1539
Date/Time Consultation Performed: 02/13/25 1615
Requesting Provider: Jerardo Shelton
Performing Provider: Hilaria Jaeger
Reason for Consultation: NIKO
Medical History
-
Chief Complaint: AMS
History of Present Illness:
89 male history of hypothyroidism, hypertension on lisinopril, metoprolol, peripheral artery disease, AAA s/p repair 03/2024, CKD stage III, CAD, paroxysmal atrial fibrillation on Eliquis, diabetes type 2 on Jardiance and sitagliptin, HFrEF on lasix,
pulmonary hypertension, ILD/RA on prednisone, MMF, depression presented from assisted living facility after being found with altered mental state. At this time history is limited as he is extremely hard of hearing, Son at bedside who states that
this is not his normal state.
Per son has diffuse pain, has been in significant back pain for a long time with no change from recent kyphoplasty with IR at within the last 1 month.
He has been not eating well for days and today he was found altered.
In the ED found to have BG of <10, hypotension requiring pressors, Hco3 18. Cr of 3.1. Lactate 3.5. CT Head no acute abnormalities. CTChest Abd Pelvis ?cystitis, no hydro, dilation of gallbladder and prob cholelithiasis. Received NS 3lit.
Ne[hrology asked to eval for NIKO.
Past Medical History
hypothyroidism
hypertension
peripheral artery disease
AAA
coronary artery disease
paroxysmal a-fib
HFrEF
CKD3
rheumatoid arthritis
type 2 diabetes with neuropathy
pulmonary hypertension
interstitial lung disease
depression/anxiety
GERD
kyphoplasty
left cataract removed
eyelid surgery
cardica cath
Social History
Tobacco: Smoker
Alcohol: None
Living: Alf
Family History
Family History: Unable to Obtain
Allergies / Home Medications
Allergy/AdvReac Type Severity Reaction Status Date / Time
codeine Allergy Vomiting Verified 01/21/25 18:18
Per
Facility
�Medication �Instructions �Recorded �Confirmed �Type
mycophenolate mofetil 500 mg tablet 1,000 mg PO BID interstitial lung 03/03/24 02/13/25 History
disease
sulfamethoxazole 800 1 tab PO MOWEFR Infection 03/03/24 02/13/25 History
mg-trimethoprim 160 mg tablet prophylaxis
apixaban 5 mg tablet (Eliquis) 5 mg PO BID AFib 04/19/24 02/13/25 History
gabapentin 300 mg capsule 300 mg PO BID Pain 06/08/24 02/13/25 History
acetaminophen 325 mg tablet 650 mg PO Q4HPRN PRN mild 08/12/24 02/13/25 History
pain/fever
guaifenesin 600 mg tablet, 600 mg PO Q12H Cough 08/12/24 02/13/25 History
extended release 12 hr
levothyroxine 100 mcg tablet 100 mcg PO HS Thyroid 11/03/24 02/13/25 History
(Synthroid)
lisinopril 5 mg tablet 5 mg PO DAILY Blood Pressure 11/03/24 02/13/25 History
metoprolol succinate 50 mg 50 mg PO DAILY Blood Pressure 11/03/24 02/13/25 History
tablet,extended release 24 hr
empagliflozin 25 mg tablet 12.5 mg PO DAILY Diabetes 12/08/24 02/13/25 History
(Jardiance)
prednisone 2.5 mg tablet 17.5 mg PO DAILY Anti-Inflammatory 12/08/24 02/13/25 History
sitagliptin 100 mg tablet 100 mg PO DAILY Diabetes 12/08/24 02/13/25 History
furosemide 40 mg tablet (Lasix) 40 mg PO DAILY Fluid 01/15/25 02/13/25 History
Retention/Swelling
benzonatate 100 mg capsule 100 mg PO Q8HPRN PRN cough 01/19/25 02/13/25 History
difluprednate 0.05 % eye drops 1 drp LEFT EYE QID Eye Condition 01/21/25 02/13/25 History
docusate sodium 100 mg capsule 100 mg PO BID Constipation #0 caps 01/28/25 02/13/25 Rx
(Colace)
atorvastatin 40 mg tablet 40 mg PO HS High Cholesterol 02/13/25 02/13/25 History
glucosamine 375 ni-jkncntlay-eto 1 tab PO DAILY Supplement 02/13/25 02/13/25 History
no1 500 mg-C 15 mg-nissa 0.5 mg
tablet
(Kfobftanaos-Ljblhuncklg-KMK
Complex)
lidocaine 4 % topical patch 1 patch topical DAILY Pain 02/13/25 02/13/25 History
methocarbamol 500 mg tablet 500 mg PO Q6HPRN PRN muscle spasms 02/13/25 02/13/25 History
ondansetron HCl 4 mg tablet 4 mg PO Q6HPRN PRN nausea/vomiting 02/13/25 02/13/25 History
oxycodone 5 mg tablet 5 mg PO Q6HPRN PRN moderate pain 02/13/25 02/13/25 History
saxagliptin 5 mg tablet 5 mg PO DAILY Diabetes 02/13/25 02/13/25 History
sertraline 50 mg tablet 50 mg PO HS Mental Health 02/13/25 02/13/25 History
tamsulosin 0.4 mg capsule 0.4 mg PO DAILY Urinary Issue 02/13/25 02/13/25 History
zinc oxide 13 % topical cream 1 applic topical BID Skin Issues 02/13/25 02/13/25 History
Review of Systems
-
unable to obtain, [id number] and AMS
Physical Exam
Vital Signs
Vital Signs
Temp Pulse Resp BP Pulse Ox
98.1 F 85 17 107/50 94
02/13/25 11:55 02/13/25 16:24 02/13/25 13:20 02/13/25 16:20 02/13/25 16:24
Lab Results
WBC 9.4 10^3/uL (4.8-10.8) 02/13/25 12:11
RBC 3.15 10^6/uL (4.70-6.10) L 02/13/25 12:11
Hgb 9.3 g/dL (13.0-18.0) L 02/13/25 12:11
Hct 30.0 % (39.0-52.0) L 02/13/25 12:11
Plt Count 214 10^3/uL (130-400) 02/13/25 12:11
Sodium 134 mmol/L (135-145) L 02/13/25 15:50
Potassium 3.9 mmol/L (3.5-5.1) 02/13/25 15:50
Chloride 111 mmol/L (98-107) H 02/13/25 15:50
Carbon Dioxide 16 mmol/L (22-30) L 02/13/25 15:50
BUN 47 mg/dl (9-20) H 02/13/25 15:50
Creatinine 2.9 mg/dL (0.7-1.3) H 02/13/25 15:50
eGFR 20.30 02/13/25 15:50
Glucose 89 mg/dl (70-99) 02/13/25 15:50
Calcium 7.1 mg/dl (8.4-10.2) L 02/13/25 15:50
Albumin Cancelled 02/13/25 12:11
Physical Exam
General: Awake and Alert
HEENT: Anicteric, Neck Supple and No JVD
Respiratory: Normal Excursion, Nonlabored Respirations and Other (coarse)
Cardiac: S1/S2 and Regular Rate/Rhythm
Breast: Deferred by me
Abdomen: Soft and Other (TTP gen from back pain)
Musculoskeletal: No Cyanosis and No Edema
Neuro: Nonfocal/Grossly Intact
Psych: Appropriate
Assessment/Plan
-
IMP:
Septic shock
hypoglycemia
acute on chronic back pain.
Acute on chronic kidney disease
met acidosis
Compression fracture status post vertebroplasty 01/2025
Ambulatory dysfunction
Abdominal aortic aneurysm status post EVAR 04/21/2024
Rheumatoid arthritis on MMF/prednisone and prophylactic Bactrim.
Coronary artery disease-multivessel
Type 2 diabetes
Atrial fibrillation-on anticoagulation
Interstitial lung disease/pulmonary fibrosis
Hypertension
Heart failure with reduced ejection fraction.
Echocardiogram 06/11/2024: Mildly reduced LVEF. 50%. Hypokinesis basal to mid inferior wall. Mild enlarged right ventricle. Normal biventricular systolic function. Severe pulmonary hypertension.
History of urinary retention
BPH
Hypothyroidism
Plan:
A/w septic shock and AMS
NIKO with CKD -possible baseline cr mid 1
suspect prerenal from shock, UA ?UTI, no hydro on CT
cotn fluid resuscitation
monitor UOP -long if possible
met acidosis, mild L Acid
likely change to bicarb IVF if needed
abx per primary
dose renally
titrate pressors to keep MAP>65
Hyponatremia -hypovolemic
follow labs
no emergent need of HD however son would not want either
case d/w son at bedside
d/w iCU
[2025-02-13] MEDS: MORPHINE SULFATE 1 MG IV (17:47)
[2025-02-13 17:48] LABS: Hemoglobin 8.6 g/dL (13.0-18.0); Mean Corp Hgb Conc. 30.7 g/dL (33.0-37.0); Mean Corpuscular Hgb 29.9 pg (27.0-31.0); Mean Corpuscular Volume 97.2 fL (80.0-94.0); Platelet Count 187 10^3/uL (130-400); Red Blood Cell Count 2.88 10^6/uL (4.70-6.10); Red Cell Dist. Width 16.3 % (11.5-14.5)
[2025-02-13 17:51] LABS: Lactic Acid 1.7 mmol/L (0.7-2.0)
[2025-02-13 17:59] LABS: INR 1.71; PT 20.3 Sec (11.4-14.6)
[2025-02-13 18:00] LABS: APTT 50.9 Sec (23.4-35.0)
[2025-02-13 18:06] LABS: Glucose - Point of Care 142 mg/dl (70-99)
[2025-02-13 18:11] LABS: Magnesium 2.2 mg/dl (1.6-2.3)
--- NOTE | 2025-02-13 18:11 | CON.ID ---
Consultation
-
Date/Time Consultation Requested: February 13, 2025 1539
Date/Time Consultation Performed: February 13, 2025 1810
Requesting Provider: Dr. Jerardo Lawrence
Performing Provider: Dr. Sara Sethi
Reason for Consultation: UTI, hypotensive
Chief Complaint / Past History
Chief Complaint
Change in mental status
History of Present Illness
89-year-old male with diabetes, rheumatoid arthritis, interstitial lung disease on mycophenolate, high-dose prednisone, prophylactic Bactrim Fridays, history of abdominal aortic aneurysm endograft repair, heart failure with reduced
EF, CAD who presented to the hospital today due to change in mental status. Patient has history of chronic back pain for about 3 years which became acutely severe and was recently hospitalized from January 15 to January 17, 2025. He was rehospitalized
from January 19 to January 28with intractable back pain despite oxycodone. MRI of lumbar spine showed mild acute superior endplate compression deformity of L2 and suspicious for incomplete fracture of S2-3. January 26 he underwent L2 vertebroplasty. He was
then discharged to rehab where he fell and then eventually back to the assisted living [facility]. Patient was found confused at the assisted living and therefore sent back to the hospital today. Glucose noted to be less than 10. Patient was
hypotensive with systolic blood pressure in the low 70s. Patient with decreased urine output. Patient with history of urinary retention. Bladder scan in the ER [address] of the chest abdomen pelvis diffuse wall thickening of the urinary
bladder could partially be related to underdistention. He is currently on cefepime and vancomycin. Patient continues to have severe back pain despite vertebroplasty. Currently more comfortable with pain med.
Past History
Additional Past Medical History:
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
Neuropathy
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
Hypothyroidism
Hypertension
Paroxysmal atrial fibrillation
Heart failure with reduced EF
CAD
Depression/anxiety
Rheumatoid arthritis on chronic plaquenil, prednisone 17.5 mg/d and Bactrim prophylaxis
CKD 3
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
L2 percutaneous vertebroplasty 01/26/25
Hard of hearing
Allergy History:
codeine Adverse Reaction (Verified 02/13/25 17:11)
Vomiting
Medications Reviewed: Yes
Current Antibiotics:
Vancomycin
Cefepime
Social History
Tobacco: Former Smoker
Alcohol: None
Drug: None
Living: Assisted Living ([facility])
Family History
Family History: Not Pertinent
Review of Systems
Review of Systems
General: Chills and Change in Appetite; Negative Fever
HEENT: Negative Sinus Problems or Headache
Cardiovascular: Negative Chest Pain
Respiratory: Dyspnea (Chronic); Negative Cough or Sputum Production
Gasteroenterology: Negative Nausea, Vomiting or Diarrhea
Genital / Urological: Negative Dysuria or Flank Pain
Endocrine: Weakness
Neurological: Negative Dizziness
All systems: All other systems were reviewed and were negative
Vital Signs
Temp Pulse Resp BP Pulse Ox
98.1 F 85 17 107/50 94
02/13/25 11:55 02/13/25 16:24 02/13/25 13:20 02/13/25 16:20 02/13/25 16:24
Physical Exam
Physical Exam
Constitutional: Chronically Ill
Head: Other (No frontal or max or sinus tenderness)
Eyes: No Conjunctival Hemorrhage and Sclera Anicteric
Cardiovascular: Regular Rate and S1/S2
Pulmonary: Rales (Coarse crackles bilaterally)
Gastrointestinal: Soft, Non Tender, Non Distended and Normal Bowel Sounds
Genito-Urinary: Negative CVA Tenderness
Extremities: Negative Edema
Neurological: Awake and Alert
Lab / Diagnostic Study Results
02/13/25 17:25
02/13/25 15:50
Abs Immat Gran (auto) 0.1 10^3/uL (0-0.05) H 02/13/25 12:11
Absolute Neuts (auto) 7.1 10^3/uL (1.4-6.5) H 02/13/25 12:11
Absolute Lymphs (auto) 1.3 10^3/uL (1.2-3.4) 02/13/25 12:11
Absolute Monos (auto) 0.9 10^3/uL (0.1-0.6) H 02/13/25 12:11
Absolute Basos (auto) 0.0 10^3/uL (0-0.2) 02/13/25 12:11
Immature Gran % 0.8 % (0-0.5) H 02/13/25 12:11
Neutrophils % 75.8 % (42.2-75.2) H 02/13/25 12:11
Lymphocytes % 13.9 % (20.5-51.1) L 02/13/25 12:11
Monocytes % 9.1 % (1.7-9.3) 02/13/25 12:11
Eosinophils % 0.2 % (0-6) 02/13/25 12:11
Basophils % 0.2 % (0-2) 02/13/25 12:11
PT 20.3 Sec (11.4-14.6) H 02/13/25 17:25
INR 1.71 02/13/25 17:25
Lactic Acid 1.7 mmol/L (0.7-2.0) 02/13/25 17:25
Ur Squamous Epith Cells 6-10 /LPF (Few) 02/13/25 12:52
Microbiology Results
Micro:
02/13/25 12:52 Urine Culture - Pending
Urine
02/13/25 12:52 Blood Culture - Pending
Blood/Venous
02/13/25 12:51 Blood Culture - Pending
Blood/Venous
02/13/25 CT C/A/P: Dilation of the gallbladder and probable cholelithiasis. No clear abnormal gallbladder wall thickening or pericholecystic fluid identified at noncontrast CT. If there is clinical concern for cholecystitis, could be further
evaluated with follow-up ultrasound examination.
2. Diffuse wall thickening of the urinary bladder. This could partially be related to underdistention. Cystitis is also a consideration.
3. Pulmonary fibrosis as seen previously.
4. Advanced coronary and aortic atherosclerosis. Post endovascular repair of abdominal aortic aneurysm. Excluded aneurysm sac size either unchanged or minimally smaller.
02/13/25 CXR: MODERATE CHRONIC INFLAMMATORY INTERSTITIAL PNEUMONITIS in the peripheral aspect of both lower lungs (right greater than left) which appears unchanged.
Assessment / Plan
#Septic shock on 1 pressor.
# Acute mental status change most likely due to hypoglycemic episode
#NIKO on CKD 3
# Intractable back pain status post L2 percutaneous vertebroplasty January 26 without improvement of back pain.
. January 20 lumbar MRI showed mild acute L2 compression fracture
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
- Await bcx's and ucx.
- ICU support
- Continue Vanco and cefepime pending culture data
- Follow clinical status.
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
Neuropathy
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
Hypothyroidism
Hypertension
Paroxysmal atrial fibrillation
Heart failure with reduced EF
CAD
Depression/anxiety
Rheumatoid arthritis on chronic prednisone 17.5 mg/d and Bactrim prophylaxis
CKD 3
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
L2 percutaneous vertebroplasty 01/26/25
Hard of hearing
--- NOTE | 2025-02-13 18:45 | PTCARENOTE ---
Pt arrived to unit from ED via stretcher and transferred over to unit bed by staff. AAOx3, but forgetful. Hard of hearing. Hearing aids in place. Pt stating 10/10 lower back pain. PRN Morphine 1mg IV administered. Pt stated successful relief of
pain, 'now 7 or 8 out of 10.' SaO2 83-88% on room air. Pt states they where 3L NC at home for sleep. 3L NC applied; SaO2 98%. Fine crackles auscultated at bases. Levophed gtt infusing @ 6 mcg/min with goal MAP > 65. Trace anasarca. Round obese
abdomen. Poor appetite. Son at bedside reports 5 - 10 pound weight loss in past 3 weeks. Last bowel movement observed 3 days ago. Condom catheter #[address], pt urinated cloudy yellow urine. Accucheck obtained, resulted 142.
[2025-02-13 19:00] LABS: Glucose - Point of Care 165 mg/dl (70-99)
[2025-02-13] MEDS: ELIQUIS 2.5 MG PO (19:22)
[2025-02-13] MEDS: DESITIN MAXIMUM STRENGTH PASTE 1 APPLIC TOPICAL (19:23)
[2025-02-13] MEDS: COLACE 100 MG PO (19:23)
[2025-02-13] MEDS: MYCOSTATIN CREAM 1 APPLIC TOPICAL (20:03)
[2025-02-13 20:08] LABS: Glucose - Point of Care 191 mg/dl (70-99)
--- NOTE | 2025-02-13 20:46 | PTCARENOTE ---
Pt received start of shift, HR SR w/ occasional PVCs. Pt BP maintaining goal, weaning levophed as charted. Afebrile. AAOx3, but forgetful. Occasional confused conversation. Hard of hearing. 3L NC POX 97-99%. Condom catheter in place, draining cloudy
yellow urine. Blood sugar check changed to q6.
[2025-02-13] MEDS: LIPITOR 40 MG PO (21:20)
[2025-02-13] MEDS: SYNTHROID 100 MCG PO (21:20)
[2025-02-13] MEDS: ZOLOFT 50 MG PO (21:21)
[2025-02-13] MEDS: CALCIUM GLUCONATE 130 MG IV (21:26)
[2025-02-13] MEDS: SODIUM BICARBONATE 1075 MEQ IV (23:31)
[2025-02-13] MEDS: DECADRON 2 MG IV (23:31)
[2025-02-13 23:42] LABS: Glucose - Point of Care 151 mg/dl (70-99)
[2025-02-13] MEDS: NOVOLOG FLEXPEN-MODERATE RESISTANCE 1 UNITS SC (23:42)
[2025-02-14] VITALS (32 sets, daily range): BP systolic 86–152; BP diastolic 39–73; BMI 28.6
--- NOTE | 2025-02-14 | PTCARENOTE ---
Levo off. Pt turning self in bed. CC #25 continuing to drain cloudy yellow urine. No further changes in assessment
[2025-02-14 04:38] LABS: Hematocrit 26.8 % (39.0-52.0); Hemoglobin 8.3 g/dL (13.0-18.0); Mean Corpuscular Hgb 29.6 pg (27.0-31.0); Mean Corpuscular Volume 95.7 fL (80.0-94.0); Mean Platelet Volume 9.5 fL (7.4-10.4); Platelet Count 187 10^3/uL (130-400); Red Cell Dist. Width 16.3 % (11.5-14.5); White Blood Cell Count 5.7 10^3/uL (4.8-10.8)
[2025-02-14 04:52] LABS: Vancomycin Random 15.5 ug/ml
[2025-02-14 04:59] LABS: ALT (SGPT) 13 U/L (0-50); AST (SGOT) 29 U/L (17-59); Albumin 2.8 g/dl (3.5-5.0); Alkaline Phosphatase 119 U/L (38-126); Blood Urea Nitrogen 42 mg/dl (9-20); Calcium 8.4 mg/dl (8.4-10.2); Carbon Dioxide 19 mmol/L (22-30); Chloride 113 mmol/L (98-107); Estimated Creatinine Clearance 27 ml/min; Glucose 125 mg/dl (70-99); Potassium 4.8 mmol/L (3.5-5.1); Sodium 137 mmol/L (135-145); Total Bilirubin 0.5 mg/dl (0.2-1.3); eGFR 31.71
[2025-02-14 05:49] LABS: Vitamin B12 606 pg/ml (239-931)
[2025-02-14 05:56] LABS: Glucose - Point of Care 130 mg/dl (70-99)
[2025-02-14] MEDS: NOVOLOG FLEXPEN-MODERATE RESISTANCE SC (06:04)
[2025-02-14] MEDS: DECADRON 2 MG IV ×3 (06:17→17:04)
--- NOTE | 2025-02-14 06:34 | PTCARENOTE ---
Pt reassessed. Pt on RA 94-99%. Bicarb 0.45NS infusing as ordered. Warm blankets provided.
[2025-02-14] MEDS: LIDOCAINE 4% PATCH 1 PATCH TOPICAL (08:14)
[2025-02-14] MEDS: FLOMAX 0.4 MG PO (08:25)
[2025-02-14] MEDS: COLACE 100 MG PO ×2 (08:25→19:58)
[2025-02-14] MEDS: MYCOSTATIN CREAM 1 APPLIC TOPICAL ×2 (08:26→19:59)
[2025-02-14] MEDS: ELIQUIS 2.5 MG PO ×2 (08:26→19:58)
[2025-02-14] MEDS: MORPHINE SULFATE 1 MG IV ×2 (08:35→20:06)
[2025-02-14] MEDS: DESITIN MAXIMUM STRENGTH PASTE 1 APPLIC TOPICAL ×2 (08:35→19:59)
[2025-02-14] MEDS: TYLENOL 650 MG PO ×3 (08:35→21:59)
[2025-02-14] MEDS: ATIVAN 1 MG SL ×2 (08:36→21:59)
--- NOTE | 2025-02-14 09:23 | PTCARENOTE ---
report received, assessments per work list. patient angry that he was ordered NPO status. reviewed plan of care with optical engineering manager, order received for 200 epi diet, when this race and sports book writer informed patient of diet order, he became verbally abusive. yelling
expletives at this race and sports book writer. patient calmed after limit setting by this race and sports book writer. reviewed with optical engineering manager, new orders received. patient with increased back pain and muscles spasms with movement. see MAR. tearful and crying, 'I'm miserable'. c/o
constipation. refused miralax. requesting milk of magnesia, per optical engineering manager, unable to order for patient due to renal dysfunction. lungs with diminished breath sounds, crackles at baseleine. blood pressure trends per work list. aware. call [facility]
in reach. bed alarm activated
--- NOTE | 2025-02-14 10:31 | PHA.VAN.FU ---
Vancomycin Assessment / Plan
- Assessment
Renal Function: SCR Decreasing
WBC's are: Trending Down
In the past 24 hrs, patient has been: Hypothermic (Tmin = 96.8)
Concomitant Antimicrobials: Cefepime
- Assessment - Therapeutic Drug Monitoring
Random Level: R = 15.5 ~ 13hrs post Vanc 2gm
- Dosing Plan
Continue: Dose by level
Dosing by Level: Re-dose today (Vanc 1gm--11mg/kg)
- Monitoring Plan
Random Level: 02/15 AM
- Follow Up
Pharmacy will continue to follow.
Vancomycin Follow UP
- -
Patient Age: 89
Patient Sex: Male
Vancomycin Day #: 2
Indication: Other
Requesting Provider: Dr. Lawrence
Pertinent Antimicrobial Allergies:
No pertinent allergies to ABX
Height / Weight:
Height 5 ft 10 in
Actual Weight 90.31 kg
Pertinent Past Medical History: L2 compression fracture s/p kyphoplasty December 2024
- Vital Signs / Lab Results
Temp Pulse Resp BP Pulse Ox
97.9 F 66 17 101/45 94
02/14/25 07:19 02/14/25 09:30 02/14/25 09:30 02/14/25 09:00 02/14/25 09:30
Lab Results - Hematology
02/13/25 02/13/25 02/14/25
12:11 17:25 04:17
WBC 9.4 9.0 5.7
Lab Results - Chemistry
02/13/25 02/13/25 02/14/25
12:11 15:50 04:17
BUN 52 H 47 H 42 H
Creatinine 3.1 H 2.9 H 2.0 H
Estimated Creat Clear
Albumin Cancelled 2.8 L
02/13/25 02/13/25
12:51 17:25
Lactic Acid 3.5 H 1.7
Lab Results - Urine
02/13/25
12:52
Urine Nitrite (Reflex) Negative
Leukocyte Esterase Rfl 3+ A
Ur Squamous Epith Cells 6-10
Therapeutic Drug Monitoring
Random Vancomycin 15.5 ug/ml 02/14/25 04:17
--- NOTE | 2025-02-14 10:38 | W.PN.NEPH.PH ---
Today's Communication / Plan
-
change to LR IVF
Assessment/Plan
-
IMP:
Septic shock
hypoglycemia
acute on chronic back pain.
Acute on chronic kidney disease
met acidosis
Compression fracture status post vertebroplasty 01/2025
Ambulatory dysfunction
Abdominal aortic aneurysm status post EVAR 04/21/2024
Rheumatoid arthritis on MMF/prednisone and prophylactic Bactrim.
Coronary artery disease-multivessel
Type 2 diabetes
Atrial fibrillation-on anticoagulation
Interstitial lung disease/pulmonary fibrosis
Hypertension
Heart failure with reduced ejection fraction.
Echocardiogram 06/11/2024: Mildly reduced LVEF. 50%. Hypokinesis basal to mid inferior wall. Mild enlarged right ventricle. Normal biventricular systolic function. Severe pulmonary hypertension.
History of urinary retention
BPH
Hypothyroidism
Plan:
A/w septic shock and AMS
MICHELLE with CKD -possible baseline cr mid 1
suspect prerenal from shock, UA ?UTI, no hydro on CT
cr improving and non oliguric
met acidosis imprpving, change IVF to LR
he isoff pressors this am
abx per primary, pending cx
dose meds renally
Hyponatremia -hypovolemic-improved
monitor h/h
d/w nursing
-
-
Date of Service: February 14, 2025
CC / HPI / ROS
-
Chief Complaint:
Michelle, CKD
History of Present Illness:
cr impoving to 2.
k and na normal
off pressors this am
non oliguric
no fever
Review of Systems:
MANZANITA
offers no cp or sob
feels well
still pain but better
Labs
-
Labs:
WBC 5.7 10^3/uL (4.8-10.8) 02/14/25 04:17
RBC 2.80 10^6/uL (4.70-6.10) L 02/14/25 04:17
Hgb 8.3 g/dL (13.0-18.0) L 02/14/25 04:17
Hct 26.8 % (39.0-52.0) L 02/14/25 04:17
Plt Count 187 10^3/uL (130-400) 02/14/25 04:17
Sodium 137 mmol/L (135-145) 02/14/25 04:17
Potassium 4.8 mmol/L (3.5-5.1) 02/14/25 04:17
Chloride 113 mmol/L (98-107) H 02/14/25 04:17
Carbon Dioxide 19 mmol/L (22-30) L 02/14/25 04:17
BUN 42 mg/dl (9-20) H 02/14/25 04:17
Creatinine 2.0 mg/dL (0.7-1.3) H 02/14/25 04:17
eGFR 31.71 02/14/25 04:17
Glucose 125 mg/dl (70-99) H 02/14/25 04:17
Calcium 8.4 mg/dl (8.4-10.2) 02/14/25 04:17
Phosphorus 4.0 mg/dl (2.5-4.5) 02/13/25 17:25
Albumin 2.8 g/dl (3.5-5.0) L 02/14/25 04:17
Physical Exam
-
Vital Signs:
Vital Signs
Temp Pulse Resp BP Pulse Ox
97.9 F 66 17 101/45 94
02/14/25 07:19 02/14/25 09:30 02/14/25 09:30 02/14/25 09:00 02/14/25 09:30
Cardiovascular:: Regular rate and rhythm
Lung Excursion:: Normal (decreased)
Abdomen:: Nontender and Soft
Extremity Edema:: None: Bilateral:
Berumen Catheter: No
--- NOTE | 2025-02-14 11:25 | CM ---
Addendum entered by Teresita Crockett 02/14/25 11:42:
[facility]
[phone]
[phone]
Addendum entered by Teresita Crockett 02/14/25 11:33:
PCP: Dr. Jaylin Holguin
Pharmacy: [facility] in [place]
Original Note:
shopper marketing manager reviewed patient's chart and met with patient and patient lives alone at [facility], patient is independent with adl's and uses a power scooter, walker with ambulation, patient has nocturnal oxygen in home and
patient was followed by [facility] care, patient was recently at [facility] rehab but patient does not want to return to rehab, plan back to [facility] with [facility] visiting nurses when stable, patient would benefit from PT/OT
evaluations.
Plan; Await PT/OT evaluations.
[2025-02-14] MEDS: VANCOCIN 200 IV (11:38)
[2025-02-14] MEDS: SENOKOT-S 1 TABLET PO ×2 (11:38→19:58)
[2025-02-14 11:49] LABS: Glucose - Point of Care 176 mg/dl (70-99)
[2025-02-14] MEDS: SODIUM BICARBONATE IV ×2 (11:50→21:23)
[2025-02-14] MEDS: NOVOLOG FLEXPEN-MODERATE RESISTANCE 1 UNITS SC ×2 (11:51→17:04)
[2025-02-14] MEDS: LR 1000 IV (12:00)
--- NOTE | 2025-02-14 13:11 | W.PN.ID1 ---
Date of Service
Date of Service: February 14, 2025
Today's Communication
- DC Vancomycin
- Continue cefepime pending culture data
Assessment / Plan
# s/p Septic shock
# UTI
# Acute mental status change most likely due to hypoglycemic episode
#NIKO on CKD 3
# Intractable back pain status post L2 percutaneous vertebroplasty January 26 without improvement of back pain.
. January 20 lumbar MRI showed mild acute L2 compression fracture
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
- Bcx's neg to date.
- Ucx GNR
- DC Vancomycin
- Continue cefepime pending culture data
- Follow clinical status.
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
Neuropathy
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
Hypothyroidism
Hypertension
Paroxysmal atrial fibrillation
Heart failure with reduced EF
CAD
Depression/anxiety
Rheumatoid arthritis on chronic prednisone 17.5 mg/d and Bactrim prophylaxis
CKD 3
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
L2 percutaneous vertebroplasty 01/26/25
Hard of hearing
Subjective / Review of Systems
No complaints except hungry.
Vital Signs / Physical Exam
Vital Signs
Vital Signs
Temp Pulse Resp BP Pulse Ox
98.1 F 78 15 99/47 97
02/14/25 11:19 02/14/25 12:30 02/14/25 12:30 02/14/25 12:00 02/14/25 12:00
Physical Exam
Constitutional: No Acute Distress
Cardiovascular: Regular Rate and S1/S2
Pulmonary: Rales (coarse crackles)
Gastrointestinal: Soft, Non Tender, Non Distended and Normal Bowel Sounds
Genito-Urinary: Berumen and Clear Urine
Extremities: Negative Edema
Neurological: Awake and Alert
Objective Data
Lab Data
Lab Results
02/14/25 04:17
02/14/25 04:17
PT 20.3 Sec (11.4-14.6) H 02/13/25 17:25
INR 1.71 02/13/25 17:25
APTT 50.9 Sec (23.4-35.0) H 02/13/25 17:25
Estimated Creat Clear 27 ml/min 02/14/25 04:17
Lactic Acid 1.7 mmol/L (0.7-2.0) 02/13/25 17:25
Total Bilirubin 0.5 mg/dl (0.2-1.3) 02/14/25 04:17
AST 29 U/L (17-59) 02/14/25 04:17
ALT 13 U/L (0-50) 02/14/25 04:17
Alkaline Phosphatase 119 U/L (38-126) 02/14/25 04:17
Most recent labs reviewed.
Micro Results:
02/13/25 12:52 Blood Culture - Preliminary
Blood/Venous No Growth in 24 hours- Final report to follow
02/13/25 12:51 Blood Culture - Preliminary
Blood/Venous No Growth in 24 hours- Final report to follow
02/13/25 12:52 Urine Culture - Preliminary
Urine Gram negative bacilli
02/13/25 18:21 MRSA Screen - Pending
Nose
02/13/25 CT C/A/P: Dilation of the gallbladder and probable cholelithiasis. No clear abnormal gallbladder wall thickening or pericholecystic fluid identified at noncontrast CT. If there is clinical concern for cholecystitis, could be further
evaluated with follow-up ultrasound examination.
2. Diffuse wall thickening of the urinary bladder. This could partially be related to underdistention. Cystitis is also a consideration.
3. Pulmonary fibrosis as seen previously.
4. Advanced coronary and aortic atherosclerosis. Post endovascular repair of abdominal aortic aneurysm. Excluded aneurysm sac size either unchanged or minimally smaller.
02/13/25 CXR: MODERATE CHRONIC INFLAMMATORY INTERSTITIAL PNEUMONITIS in the peripheral aspect of both lower lungs (right greater than left) which appears unchanged.
Care Review
Plan reviewed with: Nurse
[2025-02-14] MEDS: ProAmatine 5 MG PO ×2 (13:37→17:04)
--- NOTE | 2025-02-14 13:39 | W.PN.HOSP.TC ---
Today's Communication/Plan
-
Assessment / Plan
Assessment / Plan
NAD
Scleral Anicteric
MMM
No JVD
CTABL
RRR, S1/S2
Soft, NT, ND, BS+
Warm, Dry
AAOx3
Calm
Septic shock likely source urinary tract. Nurse has not urinated. Had a straight cath for sample.
- Cefepime, Ucx GNR, BCx NGTD
- Levophed wean
- Maintain MAP greater than 65
- Stress dose steroids
TME likely related to sepsis and neuroglycopenia, resolved
Hypoglycemia, resolved
NIKO on CKD stage III with a baseline creat of around 1.5, improving
-Potentially postobstructive versus intrinsic renal (UTI) versus prerenal/ATN - ischemic
- Avoid nephrotoxins hypotension
- IV fluids
- Nephrology following
ILD
Not requiring supplemental oxygen
On Plaquenil and mmf
On 17.5 mg prednisone daily
-Will convert oral prednisone to stress dose steroids
-Hold Plaquenil and mmf as immunosuppressed
Hypothyroidism
Continue Synthroid
P A-fib currently in sinus rhythm
Monitor on telemetry
Continue Eliquis
Hold beta-eugene
HFrEF, chronic
Hold Lasix in the setting of NIKO septic
Hold lisinopril in the setting of septic shock/NIKO
Hold Toprol in the setting of septic shock
Hold Jardiance in the setting of likely cystitis
Type 2 diabetes
Accu-Cheks
Sliding scale
Hold Jardiance sitagliptin.
Interested late looking at med rec from [facility] also on a second DPP 4. On discharge this will need to be rectified as he should only be 1 the DPP 4 is do not typically cause hypoglycemia
Depression anxiety chronic
Continue sertraline
AAA s/p repair
Pulmonary hypertension and PAD
DNR
Anticipated Discharge: > 48 hours
Subjective/Interval History
-
Date of Service: February 14, 2025
seen and examined. no new complaints. no acutge overnight evetns
[place].
mental status improved
Objective Data
-
Labs:
Laboratory Results
02/14/25
04:17
WBC 5.7
Hgb 8.3 L
Hct 26.8 L
Plt Count 187
Sodium 137
Potassium 4.8
Chloride 113 H
Carbon Dioxide 19 L
BUN 42 H
Creatinine 2.0 H
Glucose 125 H
Calcium 8.4
Total Bilirubin 0.5
AST 29
ALT 13
Alkaline Phosphatase 119
Vital Signs:
Vital Signs
Temp Pulse Resp BP Pulse Ox
98.1 F 79 15 99/46 97
02/14/25 11:19 02/14/25 13:37 02/14/25 12:30 02/14/25 13:37 02/14/25 12:00
I&O
02/13/25 02/14/25 02/15/25
06:59 06:59 06:59
Intake Total 1080 / 1080
Output Total 1200 / 1200
Balance -1200 / -1200 1080 / 1080
--- NOTE | 2025-02-14 13:55 | PTCARENOTE ---
reassessed, mood improved, conversant and cooperative. blood pressure trends reported to Colors Custodian, orders received. midodrine administered
--- NOTE | 2025-02-14 15:19 | PTCARENOTE ---
assisted out of bedX2 to bedside commode. small amount hard stool. refusing suppository. + pain but patient refusing any prn medication, 'It's managable'. remains cooperative.safe environment maintained
[2025-02-14] MEDS: STERILE WATER FOR INJECTION 10 ML IV (16:14)
[2025-02-14] MEDS: MAXIPIME 1000 MG IV (16:14)
[2025-02-14] MEDS: NEURONTIN 100 MG PO ×2 (16:14→21:59)
--- NOTE | 2025-02-14 16:25 | W.PN.INTV ---
Today's Communication / Plan
Recommendations
- Add midodrine 5 mg p.o. 3 times daily
- Levophed weaned off
- Start p.o. feeding
- Follow-up chest x-ray in a.m.
Assessment
-
89-year-old man with past medical history noted. Multiple admissions to the hospital the last year. More recently status post vertebroplasty due to severe pain. Discharged to [facility] and subsequently to [facility].
Condition has been declining over the last year.
Admitted with confusion, found to be hypotensive with acute kidney injury. Abnormal UA suggestive of UTI and sepsis.
02/14 overview: Patient saturating 94% on room air. MAP 65, off Levophed now. Current infusions normal saline with bicarb at 100 mL/h.
#1. Septic shock due to UTI
-Urine cultures showing gram-negative bacilli
-Clinically improving, weaned off Levophed now. WBC count normal, afebrile now.
-Continue IV fluids
-Add midodrine
-Continue cefepime and follow-up on urine cultures
-Continue stress dose steroids for today
-No obstructive uropathy noted
- Serial lactate improving, most recent 1.7 from on admission lactate of 3.5
#2. Chronic immunosuppression on CellCept/prednisone (h/o Rheumatoid Arthritis)
-Currently receiving stress dose steroids
-CellCept has been on hold
#3. Acute on chronic kidney disease
-No obstructive uropathy noted
-Continue IV fluids, nephrology service on case, avoid hypotension
-Creatinine gradually improving, good urine output
#4. Toxic metabolic encephalopathy
- Suspect related to septic shock, uremia, gabapentin etc.
- Significantly improved, now awake and alert. Asking for food.
- Resume general diet per patient preference
#5. History of rheumatoid arthritis/pulmonary fibrosis,? RA-ILD
- Chronically on CellCept and prednisone
- CellCept on hold in view of septic shock
- Continue stress dose steroid for now
#6. Heart failure with reduced ejection fraction, chronic
- Does not appear to be in volume overload
- Hold off diuretics in view of shock and NIKO
- Follow-up chest x-ray in a.m.
#7. Paroxysmal atrial fibrillation
- Continue Eliquis
- Not on any kaye blocking agents currently due to hypotension, shock and being on pressors
Conditions present prior admission:
Compression fracture status post vertebroplasty 01/2025
Ambulatory dysfunction
Rheumatoid arthritis on CellCept and 7.5 mg of prednisone
Chronic back pain on narcotics
Abdominal aortic aneurysm status post EVAR 04/21/2024
Rheumatoid arthritis on MMF/prednisone and prophylactic Bactrim.
Coronary artery disease-multivessel
Type 2 diabetes
Atrial fibrillation-on anticoagulation
Interstitial lung disease/pulmonary fibrosis-he moved recently from [place]. Only uses oxygen at night.
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
Follows up with Dr. Elder.
Hypertension
Heart failure with reduced ejection fraction.
Echocardiogram 06/11/2024: Mildly reduced LVEF. 50%. Hypokinesis basal to mid inferior wall. Mild enlarged right ventricle. Normal biventricular systolic function. Severe pulmonary hypertension.
History of urinary retention
BPH
DVT prophylaxis currently on Eliquis
Follow-up with Dr. Elder after discharge
-
Critical care statement: A total of 48 minutes of critical care time was provided for this patient today. This includes management of unstable vital signs, evaluation of the patient at bedside, reviewing the patient's pertinent medical records
including ventilator settings, arterial blood gases, radiographs, microbiology, laboratory evaluations and discussion with primary team, critical care nursing, and respiratory therapy.
Data:
CT chest abdomen pelvis: Cholelithiasis. No evidence for cholecystitis. Diffuse wall thickening of urinary bladder. Stable pulmonary fibrosis. Advanced coronary and aortic atherosclerosis.
Toxic metabolic encephalopathy
CT head 02/13/2025: Reviewed, no acute abnormalities. Small chronic left frontal infarct. Sphenoid sinusitis
Subjective Dataa
Subjective Data
Date of Service:
Date of Service: February 14, 2025
Subjective:
Patient comfortably sitting in bed, was reporting that he is very hungry. No other new symptoms reported
Review of Systems
Genitourinary: Other (All 14 systems reviewed and negative except as stated above in the history of present illness.)
Objective Data
Data Reviewed
Vital Signs / I&O / Oxygen:
Vital Signs
Temp Pulse Resp BP Pulse Ox
98.4 F 80 18 99/41 93
02/14/25 15:00 02/14/25 14:00 02/14/25 14:00 02/14/25 14:00 02/14/25 14:00
Intake and Output
02/13/25 02/14/25 02/15/25
06:59 06:59 06:59
Intake Total 1800 / 1800
Output Total 1200 / 1200 600 / 600
Balance -1200 / -1200 1200 / 1200
SaO2 93
Nasal Cannula flow liters per 3
minute
Physical Exam
General: Comfortable
HEENT: Normocephalic
Cardiovascular: S1-S2
Respiratory: Clear and Non-Labored Respirations
GI: Soft and Non Distended
Neurology: Awake and Alert
Skin: Warm
Labs/Micro/Reports
Lab Data
02/14/25 04:17
02/14/25 04:17
Laboratory Results
02/13/25
17:25
PT 20.3 H
INR 1.71
APTT 50.9 H
Microbiology
02/13/25 12:52 Blood/Venous Blood Culture - Preliminary
No Growth in 24 hours- Final report to follow
02/13/25 12:51 Blood/Venous Blood Culture - Preliminary
No Growth in 24 hours- Final report to follow
06/20/25 12:52 Urine Urine Culture - Preliminary
Gram negative bacilli
--- NOTE | 2025-02-14 16:47 | PTCARENOTE ---
assisted out of bed, had another hard round stool.medicated with tylenol for discomfort. requesting oxycodone for pain to take at bedtime. refuses morphine. tiger text to MD to update orders received
[2025-02-14 16:59] LABS: Glucose - Point of Care 171 mg/dl (70-99)
--- NOTE | 2025-02-14 19:45 | PTCARENOTE ---
Patient received lying in bed, awake, alert and oriented. He is very anxious and feels the need to defecate. Assisted to BSC with walker, transfers unsteadily. Patient passed flatus but no BM, positive void. Patient crying out in pain while on BSC.
Skin care given and assisted back to bed. Prn Morphine sulfate given for pain, 10/10 with activity, 8/10 while in bed. Takes po meds without difficulty. See aircraft captain charted on worklist flowsheet. BBS clear UL, bilateral bases with fine
crackles and diminished. S1S2 regular, distant with positive murmur. SR with 1st degree AVB on CM. Positive pulses x 4 extremities. Bilateral pedal edema 1+. Left upper arm with dressing in place, old drainage. Right elbow with dressing. IVF
infusing right hand, Right AC flushes well. Left hand SL flushes but is leaking, dc'd, catheter intact. Abdomen soft and obese, nontender, hypoactive bowel sounds. Patient requesting MOM, discussed different stool softeners and laxatives. Colace,
Senokot and Miralax given. Bed in low and locked position, call calhoun within reach.
[2025-02-14] MEDS: MIRALAX 17 GRAMS PO (20:10)
[2025-02-14 21:57] LABS: Glucose - Point of Care 207 mg/dl (70-99)
[2025-02-14] MEDS: ROXICODONE 5 MG PO (21:59)
[2025-02-14] MEDS: ZOLOFT 50 MG PO (22:00)
[2025-02-14] MEDS: SYNTHROID 100 MCG PO (22:00)
[2025-02-14] MEDS: LIPITOR 40 MG PO (22:00)
--- NOTE | 2025-02-14 22:00 | PTCARENOTE ---
Patient c/o ongoing severe lower back pain. Prn Ativan given for muscle tightness/spasm, prn Roxicodone and Tylenol for pain rated 8-9/10. Oxygen at 3L/nc placed for sleep, humdity added.
[2025-02-15] VITALS (18 sets, daily range): BP systolic 110–155; BP diastolic 50–84; BMI 29.6
--- NOTE | 2025-02-15 | PTCARENOTE ---
Appears to be sleeping comfortably when undisturbed with eyes closed, lying still, respirations nonlabored. VSS. Rouses easily. Voids per urinal. Pain improved to 5/10. Otherwise, no change in patient's physical assessment.
[2025-02-15] MEDS: LR 1000 IV (00:02)
[2025-02-15] MEDS: DECADRON 2 MG IV ×2 (00:02→05:15)
--- NOTE | 2025-02-15 05:00 | PTCARENOTE ---
Patient appears to be sleeping comfortably t/o night. No complaints offered. Am labs drawn. Removed oxygen on his own this am. Maintaining sats. BBS with worsening crackles of the bases. Denies SOB, CP. CXR performed at 0600 and reviewed. IVF
discontinued at 0600 per Evelio RED M[employer] THICKENER OPERATOR order. Patient is not in respiratory distress.
[2025-02-15 05:44] LABS: Hematocrit 23.7 % (39.0-52.0); Hemoglobin 7.5 g/dL (13.0-18.0); Mean Corp Hgb Conc. 31.6 g/dL (33.0-37.0); Mean Corpuscular Hgb 29.5 pg (27.0-31.0); Mean Corpuscular Volume 93.3 fL (80.0-94.0); Mean Platelet Volume 9.6 fL (7.4-10.4); Platelet Count 184 10^3/uL (130-400); Red Blood Cell Count 2.54 10^6/uL (4.70-6.10); Red Cell Dist. Width 16.2 % (11.5-14.5); White Blood Cell Count 7.8 10^3/uL (4.8-10.8)
[2025-02-15 06:09] LABS: Blood Urea Nitrogen 38 mg/dl (9-20); Calcium 8.1 mg/dl (8.4-10.2); Carbon Dioxide 21 mmol/L (22-30); Chloride 110 mmol/L (98-107); Estimated Creatinine Clearance 45 ml/min; Glucose 147 mg/dl (70-99); Magnesium 2.4 mg/dl (1.6-2.3); Potassium 4.2 mmol/L (3.5-5.1); Sodium 136 mmol/L (135-145); eGFR 58.53
--- NOTE | 2025-02-15 07:13 | PTCARENOTE ---
Report given verbally to onclouise canales, Roxanne LINK. Questions answered.
--- NOTE | 2025-02-15 07:26 | W.PN.INTV ---
Today's Communication / Plan
Recommendations
- Discontinue IV fluids
- Patient can transfer out of ICU
- Pulmonary service will follow the patient
Assessment
-
89-year-old man with past medical history noted. Multiple admissions to the hospital the last year. More recently status post vertebroplasty due to severe pain. Discharged to [facility] and subsequently to [facility].
Condition has been declining over the last year.
Admitted with confusion, found to be hypotensive with acute kidney injury. Abnormal UA suggestive of UTI and sepsis.
02/14 overview: Patient saturating 94% on room air. MAP 65, off Levophed now. Current infusions normal saline with bicarb at 100 mL/h.
Assessment and plan:
#1. Septic shock due to UTI
-Urine cultures showing gram-negative bacilli
-Clinically improving, weaned off Levophed now. WBC count normal, afebrile now.
-DC IV fluids
-Added midodrine, blood pressure improved, likely can discontinue over next 24 hours
-Continue cefepime and follow-up on urine cultures
-Continue stress dose steroids for another day
-No obstructive uropathy noted
-Serial lactate improving, most recent 1.7 from on admission lactate of 3.5
#2. Chronic immunosuppression on CellCept/prednisone (h/o Rheumatoid Arthritis)
- Currently receiving stress dose steroids
- CellCept has been on hold
#3. Acute on chronic kidney disease
-No obstructive uropathy noted
-Nephrology service on case, avoid hypotension
-Creatinine gradually improving, good urine output
- Discontinue IV fluids
#4. Toxic metabolic encephalopathy
- Suspect related to septic shock, uremia, gabapentin etc.
- Significantly improved, now awake and alert. Asking for food.
- Resumed general diet per patient preference
#5. 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
- Honeycombing as well as lower lobe traction bronchiectasis noted on imaging 05/2024
- Chronically on CellCept and prednisone
- CellCept on hold in view of septic shock
- Continue stress dose steroid for now
- Will discuss with ID service regarding resumption of CellCept
- Chest x-ray is more suggestive of ILD changes rather than heart failure
#6. Heart failure with reduced ejection fraction, chronic
- Does not appear to be in volume overload
- Hold off diuretics in view of shock and NIKO
- Chest x-ray more suggestive of ILD rather than congestive heart failure, discontinue IV fluids, saline lock
- Patient without orthopnea, lying flat in the bed on room air saturating well
#7. Paroxysmal atrial fibrillation
- Continue Eliquis
- Not on any kaye blocking agents currently due to hypotension, shock and being on pressors
#8. Pulmonary HTN
- PASP on ECHO in 05/2024 63 mm, mildly enlarged RV with normal systolic function
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
- No indication for pulmonary vasodilators
Conditions present prior admission:
Compression fracture status post vertebroplasty 01/2025
Ambulatory dysfunction
Rheumatoid arthritis on CellCept and 7.5 mg of prednisone
Chronic back pain on narcotics
Abdominal aortic aneurysm status post EVAR 04/21/2024
Rheumatoid arthritis on MMF/prednisone and prophylactic Bactrim.
Coronary artery disease-multivessel
Type 2 diabetes
Atrial fibrillation-on anticoagulation
Interstitial lung disease/pulmonary fibrosis-he moved recently from [place]. Only uses oxygen at night.
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
Follows up with Dr. Elder.
Hypertension
Heart failure with reduced ejection fraction.
Echocardiogram 06/11/2024: Mildly reduced LVEF. 50%. Hypokinesis basal to mid inferior wall. Mild enlarged right ventricle. Normal biventricular systolic function. Severe pulmonary hypertension.
History of urinary retention
BPH
DVT prophylaxis currently on Eliquis
Follow-up with Dr. Elder after discharge
-
Critical care statement: A total of 48 minutes of critical care time was provided for this patient today. This includes management of unstable vital signs, evaluation of the patient at bedside, reviewing the patient's pertinent medical records
including ventilator settings, arterial blood gases, radiographs, microbiology, laboratory evaluations and discussion with primary team, critical care nursing, and respiratory therapy.
Data:
CT chest abdomen pelvis: Cholelithiasis. No evidence for cholecystitis. Diffuse wall thickening of urinary bladder. Stable pulmonary fibrosis. Advanced coronary and aortic atherosclerosis.
ECHO 05/2024: Mildly reduced left ventricle systolic function with an EF of 50%.
Hypokinesis of basal to mid inferior wall.
Mildly enlarged right ventricular size. Normal right ventricular systolic
function.
Severe pulmonary hypertension.
Compared to previous echo on 06/08/2024, the findings are similar.
CT Chest 05/2024:
1. Reticular interstitial thickening bilaterally, associated with bibasilar bronchiectasis and early honeycombing, UIP pattern.
2. Moderate coronary arterial calcification. Please correlate with symptoms of and risk factors for coronary artery disease, with further workup as clinically appropriate.
Subjective Dataa
Subjective Data
Date of Service:
Date of Service: February 15, 2025
Subjective:
Patient currently lying in bed, no orthopnea lying flat on room air.
Review of Systems
Genitourinary: Other (All 14 systems reviewed and negative except as stated above in the history of present illness.)
Objective Data
Data Reviewed
Vital Signs / I&O / Oxygen:
Vital Signs
Temp Pulse Resp BP Pulse Ox
97.2 F 61 13 152/84 94
02/15/25 05:00 02/15/25 07:00 02/15/25 07:00 02/15/25 07:00 02/15/25 07:00
Intake and Output
02/14/25 02/15/25 02/16/25
06:59 06:59 06:59
Intake Total 3800 / 3800
Output Total 1200 / 1200 1125 / 1125
Balance -1200 / -1200 2675 / 2675
SaO2 94
Nasal Cannula flow liters per 3
minute
Physical Exam
General: Comfortable
HEENT: Normocephalic
Cardiovascular: S1-S2
Respiratory: Clear and Non-Labored Respirations
GI: Soft and Non Distended
Neurology: Awake and Alert
Skin: Warm
Labs/Micro/Reports
Lab Data
02/15/25 05:21
02/15/25 05:21
Microbiology
02/13/25 12:52 Blood/Venous Blood Culture - Preliminary
No Growth in 24 hours- Final report to follow
02/13/25 12:51 Blood/Venous Blood Culture - Preliminary
No Growth in 24 hours- Final report to follow
02/13/25 12:52 Urine Urine Culture - Preliminary
Gram negative bacilli
[2025-02-15 08:44] LABS: Glucose - Point of Care 131 mg/dl (70-99)
[2025-02-15] MEDS: NOVOLOG FLEXPEN-MODERATE RESISTANCE SC ×2 (08:47→17:30)
[2025-02-15] MEDS: DESITIN MAXIMUM STRENGTH PASTE 1 APPLIC TOPICAL ×2 (08:47→20:44)
[2025-02-15] MEDS: MYCOSTATIN CREAM 1 APPLIC TOPICAL ×2 (08:48→20:48)
[2025-02-15] MEDS: COLACE 100 MG PO ×2 (08:51→20:44)
[2025-02-15] MEDS: ELIQUIS 2.5 MG PO ×2 (08:51→20:45)
[2025-02-15] MEDS: LIDOCAINE 4% PATCH 1 PATCH TOPICAL (08:52)
[2025-02-15] MEDS: FLOMAX 0.4 MG PO (08:52)
[2025-02-15] MEDS: ProAmatine 5 MG PO (08:53)
[2025-02-15] MEDS: NEURONTIN 100 MG PO ×3 (08:53→20:46)
--- NOTE | 2025-02-15 10:37 | W.PN.NEPH.PH ---
Today's Communication / Plan
-
wean off IVF
follow labs
Assessment/Plan
-
IMP:
Septic shock
hypoglycemia
acute on chronic back pain.
Acute on chronic kidney disease
met acidosis
Compression fracture status post vertebroplasty 01/2025
Ambulatory dysfunction
Abdominal aortic aneurysm status post EVAR 04/21/2024
Rheumatoid arthritis on MMF/prednisone and prophylactic Bactrim.
Coronary artery disease-multivessel
Type 2 diabetes
Atrial fibrillation-on anticoagulation
Interstitial lung disease/pulmonary fibrosis
Hypertension
Heart failure with reduced ejection fraction.
Echocardiogram 06/11/2024: Mildly reduced LVEF. 50%. Hypokinesis basal to mid inferior wall. Mild enlarged right ventricle. Normal biventricular systolic function. Severe pulmonary hypertension.
History of urinary retention
BPH
Hypothyroidism
Plan:
A/w septic shock and AMS
MICHELLE with CKD -cr now at baseline
suspect prerenal from shock, UA ?UTI, no hydro on CT
met acidosis improving on LR, wean off IVF as po intake is appropriate
bp stable on stress dose steroids
abx per primary
no Jardiance with UTI, ok to resume lasix in 1-2days
dose meds renally
monitor h/h
-
-
Date of Service: February 15, 2025
CC / HPI / ROS
-
Chief Complaint:
Michelle, CKD
History of Present Illness:
cr impoving to 1.2
k and na normal
bp stable
non oliguric
no fever
Review of Systems:
RESIGHINI
sleeping and does not want to talk
feels well
non oliguric with out long
Labs
-
Labs:
WBC 7.8 10^3/uL (4.8-10.8) 02/15/25 05:21
RBC 2.54 10^6/uL (4.70-6.10) L 02/15/25 05:21
Hgb 7.5 g/dL (13.0-18.0) L 02/15/25 05:21
Hct 23.7 % (39.0-52.0) L 02/15/25 05:21
Plt Count 184 10^3/uL (130-400) 02/15/25 05:21
Sodium 136 mmol/L (135-145) 02/15/25 05:21
Potassium 4.2 mmol/L (3.5-5.1) 02/15/25 05:21
Chloride 110 mmol/L (98-107) H 02/15/25 05:21
Carbon Dioxide 21 mmol/L (22-30) L 02/15/25 05:21
BUN 38 mg/dl (9-20) H 02/15/25 05:21
Creatinine 1.2 mg/dL (0.7-1.3) 02/15/25 05:21
eGFR 58.53 02/15/25 05:21
Glucose 147 mg/dl (70-99) H 02/15/25 05:21
Calcium 8.1 mg/dl (8.4-10.2) L 02/15/25 05:21
Phosphorus 4.0 mg/dl (2.5-4.5) 02/13/25 17:25
Albumin 2.8 g/dl (3.5-5.0) L 02/14/25 04:17
Physical Exam
-
Vital Signs:
Vital Signs
Temp Pulse Resp BP Pulse Ox
98 F 74 19 147/64 99
02/15/25 11:32 02/15/25 12:00 02/15/25 12:00 02/15/25 11:11 02/15/25 11:28
Lung Excursion:: Normal (decreased)
Abdomen:: Nontender and Soft
Extremity Edema:: None: Bilateral:
Long Catheter: No
--- NOTE | 2025-02-15 11:33 | W.PN.ID1 ---
Date of Service
Date of Service: February 15, 2025
Today's Communication
Continue cefepime.
Assessment / Plan
# s/p Septic shock
# UTI
# Acute mental status change most likely due to hypoglycemic episode
#NIKO on CKD 3
# Intractable back pain status post L2 percutaneous vertebroplasty January 26 without improvement of back pain.
. January 20 lumbar MRI showed mild acute L2 compression fracture
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
- Bcx's neg to date.
- Ucx GNR
- Continue cefepime pending culture data
- Follow clinical status.
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
Neuropathy
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
Hypothyroidism
Hypertension
Paroxysmal atrial fibrillation
Heart failure with reduced EF
CAD
Depression/anxiety
Rheumatoid arthritis on chronic prednisone 17.5 mg/d and Bactrim prophylaxis
CKD 3
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
L2 percutaneous vertebroplasty 01/26/25
Hard of hearing
Chief Complaint
-: UTI
Vital Signs / Physical Exam
Vital Signs
Vital Signs
Temp Pulse Resp BP Pulse Ox
98 F 90 28 147/64 99
02/15/25 11:32 02/15/25 11:11 02/15/25 11:11 02/15/25 11:11 02/15/25 11:28
Physical Exam
Constitutional: No Acute Distress and Comfortable
Cardiovascular: Regular Rate and S1/S2
Pulmonary: Coarse (coarse crackles b/l)
Gastrointestinal: Soft, Non Tender, Non Distended and Normal Bowel Sounds
Genito-Urinary: Negative [place]
Objective Data
Lab Data
Lab Results
02/15/25 05:21
06/22/25 05:21
PT 20.3 Sec (11.4-14.6) H 02/13/25 17:25
INR 1.71 02/13/25 17:25
APTT 50.9 Sec (23.4-35.0) H 02/13/25 17:25
Estimated Creat Clear 45 ml/min 02/15/25 05:21
Lactic Acid 1.7 mmol/L (0.7-2.0) 02/13/25 17:25
Total Bilirubin 0.5 mg/dl (0.2-1.3) 02/14/25 04:17
AST 29 U/L (17-59) 02/14/25 04:17
ALT 13 U/L (0-50) 02/14/25 04:17
Alkaline Phosphatase 119 U/L (38-126) 02/14/25 04:17
Most recent labs reviewed.
Micro Results:
02/13/25 12:52 Urine Culture - Preliminary
Urine Gram negative bacilli
02/13/25 18:21 MRSA Screen - Final
Nose No Methicillin Resistant Staphylococcus aureus isolated.
02/13/25 12:52 Blood Culture - Preliminary
Blood/Venous No Growth in 24 hours- Final report to follow
02/13/25 12:51 Blood Culture - Preliminary
Blood/Venous No Growth in 24 hours- Final report to follow
02/13/25 CT C/A/P: Dilation of the gallbladder and probable cholelithiasis. No clear abnormal gallbladder wall thickening or pericholecystic fluid identified at noncontrast CT. If there is clinical concern for cholecystitis, could be further
evaluated with follow-up ultrasound examination.
2. Diffuse wall thickening of the urinary bladder. This could partially be related to underdistention. Cystitis is also a consideration.
3. Pulmonary fibrosis as seen previously.
4. Advanced coronary and aortic atherosclerosis. Post endovascular repair of abdominal aortic aneurysm. Excluded aneurysm sac size either unchanged or minimally smaller.
6/20/25 CXR: MODERATE CHRONIC INFLAMMATORY INTERSTITIAL PNEUMONITIS in the peripheral aspect of both lower lungs (right greater than left) which appears unchanged.
--- NOTE | 2025-02-15 11:48 | PTCARENOTE ---
Complete assessment done this am and documented. PT [facility] [place], assisted to put hearing aids in. HR SB-SR with 1st degree heart block. BP 147/64. Wound care consult was placed this am at change of shift for L upper arm skin tear, drsg in place, some blood
tinged/serous drainage noted. Pt on R/A, 97% sat, Pt does get GUADALUPE. Abd large, +BSs. Pt 2 person and walker assisted to bathroom. Pt had mod amt of form soft brown BM. PT encouraged to stay OOB in chair, but he refused and wanted to lay back in bed.
CHG bath given, gown and linen changed. Pt eating his breakfast. Seen by Dr Velma Lawrence.
--- NOTE | 2025-02-15 11:50 | W.PN.HOSP.TC ---
Today's Communication/Plan
-
Assessment / Plan
Assessment / Plan
NAD
Scleral Anicteric
MMM
No JVD
CTABL
RRR, S1/S2
Soft, NT, ND, BS+
Warm, Dry
AAOx3
Calm
Septic shock likely urinary tract. Nurse has not urinated. Had a straight cath for sample. Septic shock resolved.
- Cefepime, Ucx GNR, BCx NGTD
- Levophed off, started on midodrine, unlikely to need as bp >140.
----if bp >160 will need to start reinstating home antihypertensives slowly
- Maintain MAP greater than 65
- Stress dose steroids, begin tapering will start PO pred 30mg x2days follow by 20mg two days then back to home dose of 17.5mg daily
TME likely related to sepsis and neuroglycopenia, resolved
Hypoglycemia, resolved
NIKO on CKD stage III with a baseline creat of around 1.5, improving
-Potentially postobstructive versus intrinsic renal (UTI) versus prerenal/ATN - ischemic
- Avoid nephrotoxins hypotension
- IV fluids
- Nephrology following
ILD
Not requiring supplemental oxygen
On Plaquenil and mmf
On 17.5 mg prednisone daily
-Will convert oral prednisone to stress dose steroids, begin tapering/transition to orals
-Hold Plaquenil and mmf as immunosuppressed. once completes atb can resume or can resume when recommened by ID
Hypothyroidism
Continue Synthroid
P A-fib currently in sinus rhythm
Monitor on telemetry
Continue Eliquis
Hold beta-eugene
HTN
Hold antihypertensives
if bp >160 will need to start reinstating home antihypertensives slowly
HFrEF, chronic
Hold Lasix in the setting of NIKO septic
Hold lisinopril in the setting of septic shock/NIKO
Hold Toprol in the setting of septic shock
Hold Jardiance in the setting of likely cystitis
-May not be a candidate for future SGLT2i use do to UTI. Review of EMR culture data would suggest that he has a hx of recurrent UTI. Therefore, should not be on an SGLT2i at all going forward
Type 2 diabetes
Accu-Cheks
Sliding scale
Hold Jardiance sitagliptin.
-May not be a candidate for future SGLT2i use do to UTI. Review of EMR culture data would suggest that he has a hx of recurrent UTI. Therefore, should not be on an SGLT2i at all going forward
Interestingly looking at med rec from [facility] also on a second DPP 4. On discharge this will need to be rectified as he should only be 1 the DPP 4 is do not typically cause hypoglycemia
Depression anxiety chronic
Continue sertraline
AAA s/p repair
Pulmonary hypertension and PAD
DNR
Anticipated Discharge: > 48 hours
Subjective/Interval History
-
Date of Service: February 15, 2025
seen and [place].d no new complaints. no acute overngiht evengts
Objective Data
-
Labs:
Laboratory Results
02/15/25
05:21
WBC 7.8
Hgb 7.5 L
Hct 23.7 L
Plt Count 184
Sodium 136
Potassium 4.2
Chloride 110 H
Carbon Dioxide 21 L
BUN 38 H
Creatinine 1.2
Glucose 147 H
Calcium 8.1 L
Vital Signs:
Vital Signs
Temp Pulse Resp BP Pulse Ox
98 F 90 28 147/64 99
02/15/25 11:32 02/15/25 11:11 02/15/25 11:11 02/15/25 11:11 02/15/25 11:28
I&O
02/14/25 02/15/25 02/16/25
06:59 06:59 06:59
Intake Total 3800 / 3800 300 / 300
Output Total 1200 / 1200 1125 / 1125 500 / 500
Balance -1200 / -1200 2675 / 2675 -200 / -200
[2025-02-15 13:45] LABS: Glucose - Point of Care 171 mg/dl (70-99)
--- NOTE | 2025-02-15 13:45 | PTCARENOTE ---
Pt assisted again to BR with 2 person/walker, and had soft brown BM. Pt back to bed. Pt may go to tele room when available as per Dr Lawrence and Dr Horta.
[2025-02-15] MEDS: NOVOLOG FLEXPEN-MODERATE RESISTANCE 1 UNITS SC (14:01)
--- NOTE | 2025-02-15 14:46 | PTCARENOTE ---
Report given to FARIBA Anaya, who will be assuming care of pt in room 339-1. All belongings packed, and pt being transferred now via wheelchair with tele monitor.
[2025-02-15] MEDS: ROXICODONE 5 MG PO ×2 (14:54→20:48)
[2025-02-15] MEDS: MAXIPIME 1000 MG IV (16:20)
[2025-02-15] MEDS: STERILE WATER FOR INJECTION 10 ML IV (16:20)
[2025-02-15 16:58] LABS: Glucose - Point of Care 116 mg/dl (70-99)
--- NOTE | 2025-02-15 17:16 | PTCARENOTE ---
Report received from ICU. HG 7.5. i questioned the hg no blood orders. nurse stated Md was aware
--- NOTE | 2025-02-15 17:18 | PTCARENOTE ---
Pt received from ICU at 1530. PT assisted with one assist to chair. VSS afebrile. pt denied any pain at this time. ICU nurse medicated pt prior to transfer. Lungs Dec clear but very dyspnic with ambulating short distance with a five minute recovery.
pulse ox 98% on room air, DHS HRR +PP with +1 pedal edema telemetry with 1av block. No cp, abd large distended hypoactive bs Pt stated he moved his bowels twice today. PT currently resting in bed.
--- NOTE | 2025-02-15 19:04 | PTCARENOTE ---
made aware of hg, no new orders needed at this time
[2025-02-15] MEDS: LIPITOR 40 MG PO (20:44)
[2025-02-15] MEDS: SYNTHROID 100 MCG PO (20:46)
[2025-02-15] MEDS: ZOLOFT 50 MG PO (20:46)
[2025-02-15] MEDS: TYLENOL 650 MG PO (20:47)
[2025-02-15 21:25] LABS: Glucose - Point of Care 116 mg/dl (70-99)
[2025-02-16 03:35] VITALS: BP 100/50
[2025-02-16 05:43] LABS: Hemoglobin 7.1 g/dL (13.0-18.0); Mean Corp Hgb Conc. 30.9 g/dL (33.0-37.0); Mean Corpuscular Hgb 29.8 pg (27.0-31.0); Mean Corpuscular Volume 96.6 fL (80.0-94.0); Mean Platelet Volume 9.5 fL (7.4-10.4); Platelet Count 176 10^3/uL (130-400); Red Blood Cell Count 2.38 10^6/uL (4.70-6.10); Red Cell Dist. Width 16.2 % (11.5-14.5); White Blood Cell Count 5.9 10^3/uL (4.8-10.8)
[2025-02-16 05:58] LABS: Blood Urea Nitrogen 26 mg/dl (9-20); Calcium 8.1 mg/dl (8.4-10.2); Carbon Dioxide 21 mmol/L (22-30); Chloride 113 mmol/L (98-107); Estimated Creatinine Clearance 54 ml/min; Glucose 95 mg/dl (70-99); Potassium 3.6 mmol/L (3.5-5.1); Sodium 138 mmol/L (135-145); eGFR > 60.00
[2025-02-16 06:00] VITALS: BMI 29.4
[2025-02-16 07:26] VITALS: BP 91/63
[2025-02-16 08:24] LABS: Glucose - Point of Care 91 mg/dl (70-99)
[2025-02-16] MEDS: NOVOLOG FLEXPEN-MODERATE RESISTANCE SC ×2 (09:15→13:35)
[2025-02-16] MEDS: DELTASONE 30 MG PO (09:16)
[2025-02-16] MEDS: NEURONTIN 100 MG PO ×3 (09:16→20:48)
[2025-02-16] MEDS: COLACE 100 MG PO ×2 (09:17→20:45)
[2025-02-16] MEDS: FLOMAX 0.4 MG PO (09:17)
[2025-02-16] MEDS: DESITIN MAXIMUM STRENGTH PASTE 1 APPLIC TOPICAL (09:18)
[2025-02-16] MEDS: MYCOSTATIN CREAM 1 APPLIC TOPICAL (09:21)
[2025-02-16] MEDS: LIDOCAINE 4% PATCH 1 PATCH TOPICAL (09:21)
[2025-02-16] MEDS: ROXICODONE 5 MG PO (09:33)
--- NOTE | 2025-02-16 11:09 | W.PN.HOSP.TC ---
Today's Communication/Plan
-
Merrem
follow H&H
Assessment / Plan
Assessment / Plan
NAD
Scleral Anicteric
MMM
No JVD
CTABL
RRR, S1/S2
Soft, NT, ND, BS+
Warm, Dry
AAOx3
Calm
Septic shock 2/2 UTI with MDRO. Had a straight cath for sample. Septic shock resolved.
- Cefepime switched to Merrem on 02/16/25, Ucx Enterobacter cloacae MDR, BCx NGTD
- Levophed off, started on midodrine, unlikely to need as bp >140.
----if bp >160 will need to start reinstating home antihypertensives slowly
- Maintain MAP greater than 65
- Stress dose steroids, begin tapering will start PO pred 30mg x2days follow by 20mg two days then back to home dose of 17.5mg daily
Anemia
Acute on chronic, can be exacerbated by hydration during shock mgmt
hold Eliquis
follow stool for occult blood - RN informed
follow serial H&H
anemia w/u in AM
TME likely related to sepsis and neuroglycopenia, resolved
Hypoglycemia, resolved
NIKO on CKD stage III with a baseline creat of around 1.5, improving
-Potentially postobstructive versus intrinsic renal (UTI) versus prerenal/ATN - ischemic
- Avoid nephrotoxins hypotension
- IV fluids
- Nephrology following
ILD
Not requiring supplemental oxygen
On Plaquenil and mmf
On 17.5 mg prednisone daily
-Will convert oral prednisone to stress dose steroids, begin tapering/transition to orals
-Hold Plaquenil and mmf as immunosuppressed. once completes atb can resume or can resume when recommened by ID
Hypothyroidism
Continue Synthroid
P A-fib currently in sinus rhythm
Monitor on telemetry
Continue Eliquis
Hold beta-eugene
HTN
Hold antihypertensives
if bp >160 will need to start reinstating home antihypertensives slowly
HFrEF, chronic
Hold Lasix in the setting of NIKO septic
Hold lisinopril in the setting of septic shock/NIKO
Hold Toprol in the setting of septic shock
Hold Jardiance in the setting of likely cystitis
-May not be a candidate for future SGLT2i use do to UTI. Review of EMR culture data would suggest that he has a hx of recurrent UTI. Therefore, should not be on an SGLT2i at all going forward
Type 2 diabetes
Accu-Cheks
Sliding scale
Hold Jardiance sitagliptin.
-May not be a candidate for future SGLT2i use do to UTI. Review of EMR culture data would suggest that he has a hx of recurrent UTI. Therefore, should not be on an SGLT2i at all going forward
Interestingly looking at med rec from [facility] also on a second DPP 4. On discharge this will need to be rectified as he should only be 1 the DPP 4 is do not typically cause hypoglycemia
Depression anxiety chronic
Continue sertraline
AAA s/p repair
Pulmonary hypertension and PAD
DNR
Anticipated Discharge: > 48 hours
Subjective/Interval History
-
Date of Service: February 16, 2025
Objective Data
-
Labs:
Laboratory Results
02/16/25
05:14
WBC 5.9
Hgb 7.1 L
Hct 23.0 L
Plt Count 176
Sodium 138
Potassium 3.6
Chloride 113 H
Carbon Dioxide 21 L
BUN 26 H
Creatinine 1.0
Glucose 95
Calcium 8.1 L
Vital Signs:
Vital Signs
Temp Pulse Resp BP Pulse Ox
97.5 F 75 17 91/63 92
02/16/25 07:26 02/16/25 07:26 02/16/25 07:26 02/16/25 07:26 02/16/25 07:26
I&O
02/15/25 02/16/25 02/17/25
06:59 06:59 06:59
Intake Total 3800 / 3800 1160 / 1160
Output Total 1125 / 1125 2074 / 2074
Balance 2675 / 2675 -915 / -915
Review of Systems
-
History Source: Patient
All other systems: Reviewed and negative
Physical Exam
-
General: Comfortable
HEENT: Normocephalic
Respiratory: Clear to Auscultation
Cardiac: Regular Rhythm
GI: Soft, Nontender and Nondistended
Genito-urinary: No Costovertebral Tender
Musculoskeletal: No Clubbing, No Cyanosis and No Edema
Neuro: Awake, Alert, Oriented and AO x 3
Psych: Calm
[2025-02-16 11:11] VITALS: BP 127/60
--- NOTE | 2025-02-16 11:18 | W.PN.ID1 ---
Date of Service
Date of Service: February 16, 2025
Today's Communication
- Start Ertapenem 1g IV q24
- Contact isolation
Assessment / Plan
# s/p Septic shock
# UTI with multi-drug resistant Enterobacter
# Acute mental status change most likely due to hypoglycemic episode
#NIKO on CKD 3
# Intractable back pain status post L2 percutaneous vertebroplasty January 26 without improvement of back pain.
. January 20 lumbar MRI showed mild acute L2 compression fracture
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
- Bcx's neg to date.
- Ucx MDR-Enterobacter cloaecae
-DC cefepime
- Start Ertapenem 1g IV q24
- Contact isolation
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
Neuropathy
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
Hypothyroidism
Hypertension
Paroxysmal atrial fibrillation
Heart failure with reduced EF
CAD
Depression/anxiety
Rheumatoid arthritis on chronic prednisone 17.5 mg/d and Bactrim prophylaxis
CKD 3
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
L2 percutaneous vertebroplasty 01/26/25
Hard of hearing
Chief Complaint
-: UTI
Subjective / Review of Systems
No complaints.
Vital Signs / Physical Exam
Vital Signs
Vital Signs
Temp Pulse Resp BP Pulse Ox
98.7 F 67 17 127/60 90
02/16/25 11:11 02/16/25 11:11 02/16/25 11:11 02/16/25 11:11 02/16/25 11:11
Physical Exam
Constitutional: No Acute Distress and Comfortable
Cardiovascular: Regular Rate and S1/S2
Pulmonary: Coarse (crackles)
Gastrointestinal: Soft, Non Tender, Non Distended and Normal Bowel Sounds
Extremities: Negative Edema
Objective Data
Lab Data
Lab Results
02/16/25 05:14
PT 20.3 Sec (11.4-14.6) H 02/13/25 17:25
INR 1.71 02/13/25 17:25
APTT 50.9 Sec (23.4-35.0) H 02/13/25 17:25
Estimated Creat Clear 54 ml/min 02/16/25 05:14
Lactic Acid 1.7 mmol/L (0.7-2.0) 02/13/25 17:25
Total Bilirubin 0.5 mg/dl (0.2-1.3) 02/14/25 04:17
AST 29 U/L (17-59) 02/14/25 04:17
ALT 13 U/L (0-50) 02/14/25 04:17
Alkaline Phosphatase 119 U/L (38-126) 02/14/25 04:17
Most recent labs reviewed.
Micro Results:
02/13/25 12:52 Urine Culture - Final
Urine Enterobacter cloacae
02/13/25 12:51 Blood Culture - Preliminary
Blood/Venous No Growth in 48 hours- Final report to follow
02/13/25 12:52 Blood Culture - Preliminary
Blood/Venous No Growth in 48 hours- Final report to follow
02/13/25 18:21 MRSA Screen - Final
Nose No Methicillin Resistant Staphylococcus aureus isolated.
02/13/25 CT C/A/P: Dilation of the gallbladder and probable cholelithiasis. No clear abnormal gallbladder wall thickening or pericholecystic fluid identified at noncontrast CT. If there is clinical concern for cholecystitis, could be further
evaluated with follow-up ultrasound examination.
2. Diffuse wall thickening of the urinary bladder. This could partially be related to underdistention. Cystitis is also a consideration.
3. Pulmonary fibrosis as seen previously.
4. Advanced coronary and aortic atherosclerosis. Post endovascular repair of abdominal aortic aneurysm. Excluded aneurysm sac size either unchanged or minimally smaller.
02/13/25 CXR: MODERATE CHRONIC INFLAMMATORY INTERSTITIAL PNEUMONITIS in the peripheral aspect of both lower lungs (right greater than left) which appears unchanged.
--- NOTE | 2025-02-16 12:49 | W.PN.NEPH.PH ---
Today's Communication / Plan
-
Renal sign off
Assessment/Plan
-
IMP:
Septic shock
hypoglycemia
acute on chronic back pain.
Acute on chronic kidney disease
met acidosis
Compression fracture status post vertebroplasty 01/2025
Ambulatory dysfunction
Abdominal aortic aneurysm status post EVAR 04/21/2024
Rheumatoid arthritis on MMF/prednisone and prophylactic Bactrim.
Coronary artery disease-multivessel
Type 2 diabetes
Atrial fibrillation-on anticoagulation
Interstitial lung disease/pulmonary fibrosis
Hypertension
Heart failure with reduced ejection fraction.
Echocardiogram 06/11/2024: Mildly reduced LVEF. 50%. Hypokinesis basal to mid inferior wall. Mild enlarged right ventricle. Normal biventricular systolic function. Severe pulmonary hypertension.
History of urinary retention
BPH
Hypothyroidism
Plan:
A/w septic shock and AMS
MICHELLE with CKD -cr now at baseline
suspect prerenal from shock, UA ?UTI, no hydro on CT
met acidosis improving on LR, wean off IVF as po intake is appropriate
bp stable on stress dose steroids
abx per primary
no Jardiance with UTI, ok to resume lasix
I will sign off
-
-
Date of Service: February 16, 2025
CC / HPI / ROS
-
Chief Complaint:
Michelle, CKD
History of Present Illness:
cr impoving to 1.2
k and na normal
bp stable
non oliguric
no fever
Review of Systems:
STILLAGUAMISH
non oliguric with out long
Labs
-
Labs:
WBC 5.9 10^3/uL (4.8-10.8) 02/16/25 05:14
RBC 2.38 10^6/uL (4.70-6.10) L 02/16/25 05:14
Plt Count 176 10^3/uL (130-400) 02/16/25 05:14
Sodium 138 mmol/L (135-145) 02/16/25 05:14
Potassium 3.6 mmol/L (3.5-5.1) 02/16/25 05:14
Chloride 113 mmol/L (98-107) H 02/16/25 05:14
Carbon Dioxide 21 mmol/L (22-30) L 02/16/25 05:14
BUN 26 mg/dl (9-20) H 02/16/25 05:14
Creatinine 1.0 mg/dL (0.7-1.3) 02/16/25 05:14
eGFR > 60.00 02/16/25 05:14
Glucose 95 mg/dl (70-99) 02/16/25 05:14
Calcium 8.1 mg/dl (8.4-10.2) L 02/16/25 05:14
Phosphorus 4.0 mg/dl (2.5-4.5) 02/13/25 17:25
Albumin 2.8 g/dl (3.5-5.0) L 02/14/25 04:17
Physical Exam
-
Vital Signs:
Vital Signs
Temp Pulse Resp BP Pulse Ox
98.7 F 67 17 127/60 90
02/16/25 11:11 02/16/25 11:11 02/16/25 11:11 02/16/25 11:11 02/16/25 11:11
Lung Excursion:: Normal (decreased)
Abdomen:: Nontender and Soft
Extremity Edema:: None: Bilateral:
Long Catheter: No
[2025-02-16 13:24] LABS: Hematocrit 25.4 % (39.0-52.0); Hemoglobin 7.9 g/dL (13.0-18.0)
[2025-02-16 13:28] LABS: Glucose - Point of Care 151 mg/dl (70-99)
[2025-02-16] MEDS: INVANZ 60 MG IV (13:30)
--- NOTE | 2025-02-16 13:45 | W.PN.PUL3 ---
Today's Communication / Plan
-
-Switch prednisone to 17.5 mg daily, this is his chronic home dose
-Resume CellCept at discharge
-Resume PJP prophylaxis with Bactrim at discharge
-Outpatient follow-up with Dr. Elder in 4 to 6 weeks time
-Patient saturating well on room air, asymptomatic from pulmonary standpoint, pulmonary team will sign off, please call as needed
Assessment
-
89-year-old man with past medical history noted. Multiple admissions to the hospital the last year. More recently status post vertebroplasty due to severe pain. [facility] and subsequently to [facility].
Condition has been declining over the last year.
Admitted with confusion, found to be hypotensive with acute kidney injury. Abnormal UA suggestive of UTI and sepsis.
#1. 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
- Honeycombing as well as lower lobe traction bronchiectasis noted on imaging 05/2024
- Chronically on CellCept and prednisone
- CellCept on hold in view of septic shock, discussed with infectious disease service, okay to resume on 02/17
- Stress dose steroids switch to prednisone 30 mg daily, will drop to his usual chronic home dose of 17.5 mg daily, along with PJP prophylaxis
- Chest x-ray is more suggestive of ILD changes rather than heart failure
- Patient will resume outpatient follow-up with Dr. Elder in about 4 to 6 weeks time
- Pulmonary team will sign off, please call as needed
Other medical diagnoses:
Septic shock due to UTI
Chronic immunosuppression on CellCept/prednisone (h/o Rheumatoid Arthritis)
Acute on chronic kidney disease
Toxic metabolic encephalopathy
Heart failure with reduced ejection fraction, chronic
Paroxysmal atrial fibrillation
Pulmonary HTN
Conditions present prior admission:
Compression fracture status post vertebroplasty 01/2025
Ambulatory dysfunction
Rheumatoid arthritis on CellCept and 7.5 mg of prednisone
Chronic back pain on narcotics
Abdominal aortic aneurysm status post EVAR 04/21/2024
Rheumatoid arthritis on MMF/prednisone and prophylactic Bactrim.
Coronary artery disease-multivessel
Type 2 diabetes
Atrial fibrillation-on anticoagulation
Interstitial lung disease/pulmonary fibrosis-he moved recently from [place]. Only uses oxygen at night.
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
Follows up with Dr. Elder.
Hypertension
Heart failure with reduced ejection fraction.
Echocardiogram 06/11/2024: Mildly reduced LVEF. 50%. Hypokinesis basal to mid inferior wall. Mild enlarged right ventricle. Normal biventricular systolic function. Severe pulmonary hypertension.
History of urinary retention
BPH
DVT prophylaxis currently on Eliquis
Follow-up with Dr. Elder after discharge
-
Critical care statement: A total of 48 minutes of critical care time was provided for this patient today. This includes management of unstable vital signs, evaluation of the patient at bedside, reviewing the patient's pertinent medical records
including ventilator settings, arterial blood gases, radiographs, microbiology, laboratory evaluations and discussion with primary team, critical care nursing, and respiratory therapy.
Data:
CT chest abdomen pelvis: Cholelithiasis. No evidence for cholecystitis. Diffuse wall thickening of urinary bladder. Stable pulmonary fibrosis. Advanced coronary and aortic atherosclerosis.
ECHO 05/2024: Mildly reduced left ventricle systolic function with an EF of 50%.
Hypokinesis of basal to mid inferior wall.
Mildly enlarged right ventricular size. Normal right ventricular systolic
function.
Severe pulmonary hypertension.
Compared to previous echo on 06/08/2024, the findings are similar.
CT Chest 05/2024:
1. Reticular interstitial thickening bilaterally, associated with bibasilar bronchiectasis and early honeycombing, UIP pattern.
2. Moderate coronary arterial calcification. Please correlate with symptoms of and risk factors for coronary artery disease, with further workup as clinically appropriate.
Subjective Data
-
Date of Service:
Date of Service: February 16, 2025
Subjective:
Patient comfortably lying in bed, saturating well on room air
Review of Systems
Genitourinary: Other (No new symptoms reported.)
Objective Data
Data Reviewed
Vital Signs / I&O / Oxygen:
Vital Signs
Temp Pulse Resp BP Pulse Ox
98.7 F 67 17 127/60 90
02/16/25 11:11 02/16/25 11:11 02/16/25 11:11 02/16/25 11:11 02/16/25 11:11
Intake and Output
02/15/25 02/16/25 02/17/25
06:59 06:59 06:59
Intake Total 3800 / 3800 1160 / 1160
Output Total 1125 / 1125 2074 / 5
Balance 2675 / 2675 -915 / -915
SaO2 90
Nasal Cannula flow liters per 3
minute
Physical Exam
General: Comfortable
HEENT: Normocephalic
Cardiovascular: S1-S2
Respiratory: Clear
GI: Soft and Non Distended
Neurology: Awake and Alert
Skin: Warm
Labs/Micro/Reports
Lab Data
02/16/25 13:15
02/16/25 05:14
Microbiology
02/13/25 12:51 Blood/Venous Blood Culture - Preliminary
No Growth in 72 hours- Final report to follow
02/13/25 12:52 Blood/Venous Blood Culture - Preliminary
No Growth in 72 hours- Final report to follow
02/13/25 12:52 Urine Urine Culture - Final
Enterobacter cloacae
02/13/25 18:21 Nose MRSA Screen - Final
No Methicillin Resistant Staphylococcus aureus isolated.
--- NOTE | 2025-02-16 14:25 | WOUNDNOTE ---
LEFT UPPER ARM
--- NOTE | 2025-02-16 14:25 | WOUNDNOTE ---
[facility] RN note: Patient admitted with sepsis.
See H&P for complete history. Lives at [facility].
PMH: 89 male history of hypothyroidism, hypertension, peripheral artery disease, AAA, CKD stage III, CAD, paroxysmal atrial fibrillation on Eliquis, diabetes type 2, HFrEF, pulmonary hypertension, ILD/RA, depression presented from assisted living
facility after being found with altered mental state and an his stool.
Wound Location and type/assessment: Patient admitted with: R plantar toe blister, open pink base with residual blister/ skin covering. + pedal pulse no edema. Heels are intact. R arm skin tear now dry, small intact scab. L arm with skin tear,
attempted to place skin flap in place, skin friable and flaking off. Patient states he fell in the [place] and that is how he got his wounds. Scattered bruising and scars on arms. Patient turned with assistance, sacrum intact.
Appetite: Good.
Pressure redistribution devices in place: On Accumax, turned and repositioned, pressure ulcer prevention measures reviewed with patient. Pillow placed under calves.
Plan: Vaseline gauze and dry dressing applied to L arm and R great toe.
Will confirm orders with hospitalist and update nurse.
Updated care plan and will follow as needed.
Note to case management of equipment requested for discharge: TBD
Recommend follow up at wound care center upon discharge.
--- NOTE | 2025-02-16 14:26 | WOUNDNOTE ---
LEFT UPPER ARM
--- NOTE | 2025-02-16 14:26 | WOUNDNOTE ---
RIGHT GREAT TOE
[2025-02-16 16:34] VITALS: BP 130/64
--- NOTE | 2025-02-16 17:29 | CM ---
Pt to return to [facility] at discharge.
Will need to clarify with family if pt wants [facility] .
Pt has nocturnal oxygen at home.
PLAN Return to [facility] with VN
[2025-02-16 17:38] LABS: Glucose - Point of Care 173 mg/dl (70-99)
[2025-02-16] MEDS: NOVOLOG FLEXPEN-MODERATE RESISTANCE 1 UNITS SC (18:19)
[2025-02-16 19:17] VITALS: BP 129/56
[2025-02-16] MEDS: LIPITOR 40 MG PO (20:47)
[2025-02-16] MEDS: ZOLOFT 50 MG PO (20:48)
[2025-02-16] MEDS: SYNTHROID 100 MCG PO (20:48)
[2025-02-16] MEDS: MYCOSTATIN CREAM TOPICAL (20:50)
[2025-02-16] MEDS: DESITIN MAXIMUM STRENGTH PASTE TOPICAL (20:50)
[2025-02-16 21:28] LABS: Glucose - Point of Care 184 mg/dl (70-99)
[2025-02-16 23:28] VITALS: BP 127/66
[2025-02-17] VITALS (7 sets, daily range): BP systolic 127–159; BP diastolic 51–73; PULSE 67; O2SAT 98; BMI 29.3
[2025-02-17 06:48] LABS: % Eosinophils 0.2 % (0-6); % Immature Granulocytes 0.9 % (0-0.5); % Lymphocytes 11.6 % (20.5-51.1); % Monocytes 9.8 % (1.7-9.3); % Neutrophils 77.5 % (42.2-75.2); Absolute Immature Granulocytes 0.1 10^3/uL (0-0.05); Absolute Lymphocytes 0.6 10^3/uL (1.2-3.4); Absolute Monocytes 0.5 10^3/uL (0.1-0.6); Absolute Neutrophils 4.3 10^3/uL (1.4-6.5); Hematocrit 22.8 % (39.0-52.0); Hemoglobin 7.1 g/dL (13.0-18.0); Mean Corp Hgb Conc. 31.1 g/dL (33.0-37.0); Mean Corpuscular Hgb 29.3 pg (27.0-31.0); Mean Corpuscular Volume 94.2 fL (80.0-94.0); Mean Platelet Volume 9.8 fL (7.4-10.4); Nucleated Red Blood Cells % 0 % (-); Platelet Count 177 10^3/uL (130-400); Red Blood Cell Count 2.42 10^6/uL (4.70-6.10); Red Cell Dist. Width 15.9 % (11.5-14.5); Reticulocyte Count 0.8 % (0.4-2.8); White Blood Cell Count 5.5 10^3/uL (4.8-10.8)
[2025-02-17 06:52] LABS: ALT (SGPT) 15 U/L (0-50); AST (SGOT) 18 U/L (17-59); Albumin 2.7 g/dl (3.5-5.0); Alkaline Phosphatase 97 U/L (38-126); Blood Urea Nitrogen 21 mg/dl (9-20); Calcium 8.3 mg/dl (8.4-10.2); Carbon Dioxide 24 mmol/L (22-30); Chloride 113 mmol/L (98-107); Estimated Creatinine Clearance 67 ml/min; Glucose 101 mg/dl (70-99); Iron 35 ug/dl (49-181); LDH 162 U/L (120-246); Potassium 3.6 mmol/L (3.5-5.1); Sodium 139 mmol/L (135-145); Total Bilirubin 0.4 mg/dl (0.2-1.3); Total Protein 4.8 g/dl (6.3-8.2); eGFR > 60.00
[2025-02-17 07:01] LABS: Percent Saturation 17 % (20-50); Total Iron Binding Capacity 203 ug/dl (261-462)
[2025-02-17 07:40] LABS: Glucose - Point of Care 100 mg/dl (70-99)
[2025-02-17 07:57] LABS: Folate 9.4 ng/ml (2.76-20); Vitamin B12 410 pg/ml (239-931)
[2025-02-17] MEDS: NOVOLOG FLEXPEN-MODERATE RESISTANCE SC ×3 (08:37→17:35)
[2025-02-17] MEDS: NEURONTIN 100 MG PO ×3 (08:38→21:17)
[2025-02-17] MEDS: DELTASONE 2.5 MG PO (08:38)
[2025-02-17] MEDS: COLACE 100 MG PO ×2 (08:38→21:16)
[2025-02-17] MEDS: FLOMAX 0.4 MG PO (08:38)
[2025-02-17] MEDS: DELTASONE 10 MG PO (08:38)
[2025-02-17] MEDS: DELTASONE 5 MG PO (08:38)
[2025-02-17] MEDS: MYCOSTATIN CREAM 1 APPLIC TOPICAL ×2 (08:39→21:21)
[2025-02-17] MEDS: DESITIN MAXIMUM STRENGTH PASTE 1 APPLIC TOPICAL ×2 (08:39→21:21)
[2025-02-17] MEDS: LIDOCAINE 4% PATCH 1 PATCH TOPICAL (08:39)
[2025-02-17] MEDS: SENOKOT-S 1 TABLET PO (08:59)
[2025-02-17] MEDS: FLUSH (NSS) 2 FLUSH IV ×2 (09:35→18:39)
[2025-02-17] MEDS: MORPHINE SULFATE 1 MG IV ×2 (09:35→18:39)
--- NOTE | 2025-02-17 11:25 | W.PN.ID1 ---
Date of Service
Date of Service: February 17, 2025
Today's Communication
- At time of dc, transition to doxycycline 100mg po bid through 03/01/25
Assessment / Plan
# s/p Septic shock
# UTI with multi-drug resistant Enterobacter
# Acute mental status change most likely due to hypoglycemic episode
#NIKO on CKD 3
# Intractable back pain status post L2 percutaneous vertebroplasty January 26 without improvement of back pain.
. January 20 lumbar MRI showed mild acute L2 compression fracture
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
- Bcx's neg to date.
- Ucx MDR-Enterobacter cloacae
- Continue Ertapenem 1g IV q24 (d2)
- At time of dc, transition to doxycycline 100mg po bid through 03/01/25
- Continue Contact isolation
- Can resume MMF, high dose steroid and prophylactic Bactrim DS 1 MWF
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
Neuropathy
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
Hypothyroidism
Hypertension
Paroxysmal atrial fibrillation
Heart failure with reduced EF
CAD
Depression/anxiety
Rheumatoid arthritis on chronic prednisone 17.5 mg/d and Bactrim prophylaxis
CKD 3
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
L2 percutaneous vertebroplasty 01/26/25
Hard of hearing
Chief Complaint
-: UTI
Vital Signs / Physical Exam
Vital Signs
Vital Signs
Temp Pulse Resp BP Pulse Ox
98.1 F 72 18 127/60 97
02/17/25 11:11 02/17/25 11:11 02/17/25 11:11 02/17/25 11:11 02/17/25 11:20
Physical Exam
Constitutional: No Acute Distress and Comfortable
Cardiovascular: Regular Rate and S1/S2
Pulmonary: Coarse (crackles)
Gastrointestinal: Soft, Non Tender, Non Distended and Normal Bowel Sounds
Extremities: Negative Edema
Objective Data
Lab Data
Lab Results
02/17/25 05:43
02/17/25 05:43
PT 20.3 Sec (11.4-14.6) H 02/13/25 17:25
INR 1.71 02/13/25 17:25
APTT 50.9 Sec (23.4-35.0) H 02/13/25 17:25
Estimated Creat Clear 67 ml/min 02/17/25 05:43
Lactic Acid 1.7 mmol/L (0.7-2.0) 02/13/25 17:25
Total Bilirubin 0.4 mg/dl (0.2-1.3) 02/17/25 05:43
AST 18 U/L (17-59) 02/17/25 05:43
ALT 15 U/L (0-50) 02/17/25 05:43
Alkaline Phosphatase 97 U/L (38-126) 02/17/25 05:43
Most recent labs reviewed.
Micro Results:
02/13/25 12:51 Blood Culture - Preliminary
Blood/Venous No Growth in 72 hours- Final report to follow
02/13/25 12:52 Blood Culture - Preliminary
Blood/Venous No Growth in 72 hours- Final report to follow
02/13/25 12:52 Urine Culture - Final
Urine Enterobacter cloacae
02/13/25 18:21 MRSA Screen - Final
Nose No Methicillin Resistant Staphylococcus aureus isolated.
02/13/25 CT C/A/P: Dilation of the gallbladder and probable cholelithiasis. No clear abnormal gallbladder wall thickening or pericholecystic fluid identified at noncontrast CT. If there is clinical concern for cholecystitis, could be further
evaluated with follow-up ultrasound examination.
2. Diffuse wall thickening of the urinary bladder. This could partially be related to underdistention. Cystitis is also a consideration.
3. Pulmonary fibrosis as seen previously.
4. Advanced coronary and aortic atherosclerosis. Post endovascular repair of abdominal aortic aneurysm. Excluded aneurysm sac size either unchanged or minimally smaller.
02/13/25 CXR: MODERATE CHRONIC INFLAMMATORY INTERSTITIAL PNEUMONITIS in the peripheral aspect of both lower lungs (right greater than left) which appears unchanged.
[2025-02-17 11:35] LABS: Glucose - Point of Care 127 mg/dl (70-99)
[2025-02-17] MEDS: INVANZ 60 MG IV (12:28)
[2025-02-17] MEDS: ATIVAN 1 MG SL (12:44)
--- NOTE | 2025-02-17 13:12 | W.PN.HOSP.TC ---
Today's Communication/Plan
-
Follow-up repeat CBC in the a.m.
If no evidence of further downtrend
Then likely able to discharge home with home health
Assessment / Plan
Assessment / Plan
NAD
Scleral Anicteric
MMM
No JVD
CTABL
RRR, S1/S2
Soft, NT, ND, BS+
Warm, Dry
AAOx3
Calm
Septic shock 2/2 UTI with MDRO. Had a straight cath for sample. Septic shock resolved.
- Cefepime switched to ertapenem on 02/16/25, Ucx Enterobacter cloacae MDR, BCx NGTD
--Per ID on discharge can discharge on Doxy 100 mg p.o. twice daily to 03/01
- Levophed off, started on midodrine, unlikely to need as bp >140.
----if bp >160 will need to start reinstating home antihypertensives slowly
- Maintain MAP greater than 65
- Stress dose steroids converted to chronic home dose steroid
Anemia
Acute on chronic, can be exacerbated by hydration during shock mgmt and even sepsis
Continues downtrending
Transfuse for hemoglobin less than 7
hold Eliquis
TME likely related to sepsis and neuroglycopenia, resolved
Hypoglycemia, resolved
NIKO on CKD stage III, baseline 1.5 however creatinine now better and baseline
-Potentially postobstructive versus intrinsic renal (UTI) versus prerenal/ATN - ischemic
- Avoid nephrotoxins hypotension
- Nephrology following
ILD
Not requiring supplemental oxygen
On Plaquenil and mmf
On 17.5 mg prednisone daily and PJP prophylaxis
-Hold Plaquenil and mmf resume on discharge
- Hold PJP prophylaxis resume
Hypothyroidism
Continue Synthroid
P A-fib currently in sinus rhythm
Monitor on telemetry
Continue Eliquis
Hold beta-eugene
HTN
Hold antihypertensives
if bp >160 will need to start reinstating home antihypertensives slowly
HFrEF, chronic
Hold Lasix in the setting of NIKO septic
Hold lisinopril in the setting of septic shock/NIKO
Hold Toprol in the setting of septic shock
Hold Jardiance in the setting of likely cystitis
-May not be a candidate for future SGLT2i use do to UTI. Review of EMR culture data would suggest that he has a hx of recurrent UTI. Therefore, should not be on an SGLT2i at all going forward
Type 2 diabetes
Accu-Cheks
Sliding scale
Hold Jardiance sitagliptin.
-May not be a candidate for future SGLT2i use do to UTI. Review of EMR culture data would suggest that he has a hx of recurrent UTI. Therefore, should not be on an SGLT2i at all going forward
Interestingly looking at med rec from [facility] also on a second DPP 4. On discharge this will need to be rectified as he should only be 1 the DPP 4 is do not typically cause hypoglycemia
Depression anxiety chronic
Continue sertraline
AAA s/p repair
Pulmonary hypertension and PAD
DNR
Anticipated Discharge: 24 - 48 hours
Subjective/Interval History
-
Date of Service: February 17, 2025
Seen and examined. No new complaints. No acute overnight events.
Hemoglobin trending down 7.1.
Objective Data
-
Labs:
Laboratory Results
02/17/25
05:43
WBC 5.5
Hgb 7.1 L
Hct 22.8 L
Plt Count 177
Sodium 139
Potassium 3.6
Chloride 113 H
Carbon Dioxide 24
BUN 21 H
Creatinine 0.8
Glucose 101 H
Calcium 8.3 L
Total Bilirubin 0.4
AST 18
ALT 15
Alkaline Phosphatase 97
Vital Signs:
Vital Signs
Temp Pulse Resp BP Pulse Ox
98.1 F 72 18 127/60 97
02/17/25 11:11 02/17/25 11:11 02/17/25 11:11 02/17/25 11:11 02/17/25 11:20
I&O
02/16/25 02/17/25 02/18/25
06:59 06:59 06:59
Intake Total 1160 / 1160 720 / 720
Output Total 2074 / 2074 900 / 900
Balance -915 / -915 -180 / -180
--- NOTE | 2025-02-17 16:21 | PTCARENOTE ---
pt refused to eat today. pt offered food several times. this nurse provided pt with orange juice, milk, eggs which pt requested. once food was at the bedside pt refused to eat. pt was very tearful this morning related to current health problems. pt
states that he wants pain Meds to take away melani pain and to just sleep. pt was OOB to the chair for 10 minutes while the bed was being changed, he brushed his teeth. pt refused to stay in the chair any longer and set off chair alarm and got himself
back in bed.
[2025-02-17 17:18] LABS: Glucose - Point of Care 97 mg/dl (70-99)
--- NOTE | 2025-02-17 18:49 | PTCARENOTE ---
pt son arrived at bedside at 1814, this nurse pulled son into the hallway and updated him about pt day (sleeping, pain, refusing to sit un chair, refusing to eat, tearful/depressive thoughts). pt son tried to get pt to eat but notified this nurse
that the pt refused and that pt son would be heading out for the night. prior to leaving pt son noted that pt goes through depressive episodes and will sleep for 2 days at a time. discussed busch of care with pt son as described in hospitalist (Dr. Rider
Howard) report today.
[2025-02-17] MEDS: LIPITOR 40 MG PO (21:17)
[2025-02-17] MEDS: SYNTHROID 100 MCG PO (21:17)
[2025-02-17] MEDS: ZOLOFT 50 MG PO (21:18)
[2025-02-17] MEDS: ROXICODONE 5 MG PO (21:29)
[2025-02-17] MEDS: TYLENOL 650 MG PO (21:30)
[2025-02-17 21:52] LABS: Glucose - Point of Care 127 mg/dl (70-99)
[2025-02-18 05:17] VITALS: BMI 29.0
[2025-02-18 05:50] LABS: Hematocrit 24.9 % (39.0-52.0); Hemoglobin 7.7 g/dL (13.0-18.0); Mean Corp Hgb Conc. 30.9 g/dL (33.0-37.0); Mean Corpuscular Hgb 29.8 pg (27.0-31.0); Mean Corpuscular Volume 96.5 fL (80.0-94.0); Mean Platelet Volume 9.5 fL (7.4-10.4); Platelet Count 182 10^3/uL (130-400); Red Blood Cell Count 2.58 10^6/uL (4.70-6.10); Red Cell Dist. Width 15.9 % (11.5-14.5); White Blood Cell Count 7.3 10^3/uL (4.8-10.8)
[2025-02-18 06:12] LABS: Blood Urea Nitrogen 19 mg/dl (9-20); Calcium 8.2 mg/dl (8.4-10.2); Carbon Dioxide 24 mmol/L (22-30); Chloride 112 mmol/L (98-107); Estimated Creatinine Clearance 67 ml/min; Glucose 91 mg/dl (70-99); Potassium 3.6 mmol/L (3.5-5.1); Sodium 140 mmol/L (135-145); eGFR > 60.00
[2025-02-18 07:00] VITALS: BP 135/72
[2025-02-18 07:55] LABS: Glucose - Point of Care 94 mg/dl (70-99)
[2025-02-18] MEDS: NOVOLOG FLEXPEN-MODERATE RESISTANCE SC ×3 (08:38→17:55)
[2025-02-18] MEDS: NEURONTIN 100 MG PO ×3 (08:38→22:27)
[2025-02-18] MEDS: FLOMAX 0.4 MG PO (08:38)
[2025-02-18] MEDS: DELTASONE 2.5 MG PO (08:38)
[2025-02-18] MEDS: COLACE 100 MG PO ×2 (08:38→22:26)
[2025-02-18] MEDS: DELTASONE 5 MG PO (08:38)
[2025-02-18] MEDS: DELTASONE 10 MG PO (08:38)
[2025-02-18] MEDS: DESITIN MAXIMUM STRENGTH PASTE 1 APPLIC TOPICAL ×2 (08:39→22:27)
[2025-02-18] MEDS: MYCOSTATIN CREAM 1 APPLIC TOPICAL ×2 (08:39→22:28)
[2025-02-18] MEDS: LIDOCAINE 4% PATCH 1 PATCH TOPICAL (08:39)
[2025-02-18] MEDS: MIRALAX 17 GRAMS PO (08:40)
[2025-02-18] MEDS: SENOKOT-S 1 TABLET PO (08:40)
[2025-02-18] MEDS: MORPHINE SULFATE 1 MG IV (08:51)
[2025-02-18] MEDS: FLUSH (NSS) 2 FLUSH IV (08:52)
--- NOTE | 2025-02-18 11:35 | W.PN.HOSP.TC ---
Addendum entered and electronically signed by Abdon Gorman MD 02/18/25 13:42:
update son over the phone in details
Original Note:
Today's Communication/Plan
-
trend hgb
IV abx
restart toprol
oob/pt
Assessment / Plan
Assessment / Plan
NAD
Scleral Anicteric
MMM
No JVD
CTABL
RRR, S1/S2
Soft, NT, ND, BS+
Warm, Dry
AAOx3
Calm
Septic shock 2/2 UTI with MDRO. Had a straight cath for sample. Septic shock resolved.
- Cefepime switched to ertapenem on 02/16/25, Ucx Enterobacter cloacae MDR, BCx NGTD
--Per ID on discharge can discharge on Doxy 100 mg p.o. twice daily to 03/01
- Levophed off, started on midodrine, unlikely to need as bp >140.
----if bp >160 will need to start reinstating home antihypertensives slowly
- Maintain MAP greater than 65
- Stress dose steroids converted to chronic home dose steroid
- started on bactrim per ID
Anemia
Acute on chronic, can be exacerbated by hydration during shock mgmt and even sepsis
Cont to trend for now
Transfuse for hemoglobin less than 7
hold Eliquis for additional 24h.
TME likely related to sepsis and neuroglycopenia, resolved
Hypoglycemia, resolved
NIKO on CKD stage III, baseline 1.5 however creatinine now better and baseline
-Potentially postobstructive versus intrinsic renal (UTI) versus prerenal/ATN - ischemic
- Avoid nephrotoxins hypotension
- Nephrology following
ILD
Not requiring supplemental oxygen
On Plaquenil and mmf
On 17.5 mg prednisone daily and PJP prophylaxis
-Hold Plaquenil and mmf resume on discharge
- Hold PJP prophylaxis resume
Hypothyroidism
Continue Synthroid
P A-fib currently in sinus rhythm
Monitor on telemetry
Continue Eliquis
Hold beta-eugene
HTN
Hold antihypertensives
if bp >160 will need to start reinstating home antihypertensives slowly
HFrEF, chronic
restart Lasix in the setting of NIKO septic
Hold lisinopril in the setting of septic shock/NIKO
restart Toprol in the setting of septic shock
Hold Jardiance in the setting of likely cystitis
-May not be a candidate for future SGLT2i use do to UTI. Review of EMR culture data would suggest that he has a hx of recurrent UTI. Therefore, should not be on an SGLT2i at all going forward
Type 2 diabetes
Accu-Cheks
Sliding scale
Hold Jardiance sitagliptin.
-May not be a candidate for future SGLT2i use do to UTI. Review of EMR culture data would suggest that he has a hx of recurrent UTI. Therefore, should not be on an SGLT2i at all going forward
Interestingly looking at med rec from [facility] also on a second DPP 4. On discharge this will need to be rectified as he should only be 1 the DPP 4 is do not typically cause hypoglycemia
Depression anxiety chronic
Continue sertraline
AAA s/p repair
Pulmonary hypertension and PAD
DNR
Anticipated Discharge: Within 24 hours
Subjective/Interval History
-
Date of Service: February 18, 2025
denies any blood stools
unable to elaborate further
Objective Data
-
Labs:
Laboratory Results
02/18/25
05:16
WBC 7.3
Hgb 7.7 L
Hct 24.9 L
Plt Count 182
Sodium 140
Potassium 3.6
Chloride 112 H
Carbon Dioxide 24
BUN 19
Creatinine 0.8
Glucose 91
Calcium 8.2 L
Vital Signs:
Vital Signs
Temp Pulse Resp BP Pulse Ox
98.8 F 77 18 135/72 92
02/18/25 07:00 02/18/25 07:00 02/18/25 07:00 02/18/25 07:00 02/18/25 07:00
I&O
02/17/25 02/18/25 02/19/25
06:59 06:59 06:59
Intake Total 720 / 720 480 / 480
Output Total 900 / 900 875 / 875
Balance -180 / -180 -395 / -395
[2025-02-18 11:51] LABS: Glucose - Point of Care 114 mg/dl (70-99)
[2025-02-18] MEDS: INVANZ 60 MG IV (12:54)
[2025-02-18] MEDS: BACTRIM DS 800 MG/160 MG 1 TABLET PO (12:55)
[2025-02-18 15:46] VITALS: BP 127/69
[2025-02-18] MEDS: ROXICODONE 10 MG PO (17:08)
[2025-02-18] MEDS: TYLENOL 650 MG PO ×2 (17:11→22:26)
--- NOTE | 2025-02-18 17:46 | PTCARENOTE ---
Addendum entered by Radha Sotelo RN 02/18/25 17:47:
pt refused to get OOB to the chair today. pt spent the day in bed, found sleeping most of the time.
Original Note:
pt refused to eat again today. pt had 1 cup of water throughout the shift. pt given pain meds PRN, see MAR. pt son updated at the bedside. Pt did not have tearful or angry episodes today.
[2025-02-18 17:54] LABS: Glucose - Point of Care 150 mg/dl (70-99)
[2025-02-18 21:38] LABS: Glucose - Point of Care 175 mg/dl (70-99)
[2025-02-18] MEDS: LIPITOR 40 MG PO (22:26)
[2025-02-18] MEDS: ZOLOFT 50 MG PO (22:26)
[2025-02-18] MEDS: ROXICODONE 7.5 MG PO (22:27)
[2025-02-18] MEDS: SYNTHROID 100 MCG PO (22:27)
[2025-02-18 23:47] VITALS: BP 121/56
[2025-02-19 05:49] LABS: % Eosinophils 0.2 % (0-6); % Immature Granulocytes 0.7 % (0-0.5); % Lymphocytes 14.1 % (20.5-51.1); Absolute Lymphocytes 0.8 10^3/uL (1.2-3.4); Absolute Monocytes 0.5 10^3/uL (0.1-0.6); Absolute Neutrophils 4.5 10^3/uL (1.4-6.5); Hematocrit 25.4 % (39.0-52.0); Hemoglobin 7.7 g/dL (13.0-18.0); Mean Corp Hgb Conc. 30.3 g/dL (33.0-37.0); Mean Corpuscular Hgb 29.1 pg (27.0-31.0); Mean Corpuscular Volume 95.8 fL (80.0-94.0); Mean Platelet Volume 9.6 fL (7.4-10.4); Nucleated Red Blood Cells % 0.3 % (-); Platelet Count 180 10^3/uL (130-400); Red Blood Cell Count 2.65 10^6/uL (4.70-6.10); Red Cell Dist. Width 16.1 % (11.5-14.5); White Blood Cell Count 5.9 10^3/uL (4.8-10.8)
[2025-02-19 06:00] VITALS: BMI 29.2
[2025-02-19 06:12] LABS: Blood Urea Nitrogen 16 mg/dl (9-20); Calcium 7.8 mg/dl (8.4-10.2); Carbon Dioxide 23 mmol/L (22-30); Chloride 113 mmol/L (98-107); Estimated Creatinine Clearance 60 ml/min; Glucose 92 mg/dl (70-99); Sodium 139 mmol/L (135-145); eGFR > 60.00
[2025-02-19 07:54] VITALS: BP 146/66
[2025-02-19 08:22] LABS: Glucose - Point of Care 89 mg/dl (70-99)
[2025-02-19] MEDS: NOVOLOG FLEXPEN-MODERATE RESISTANCE SC ×2 (08:35→11:37)
[2025-02-19] MEDS: ROXICODONE 10 MG PO ×2 (08:38→16:29)
[2025-02-19] MEDS: LIDOCAINE 4% PATCH 1 PATCH TOPICAL (08:38)
[2025-02-19] MEDS: TOPROL XL 50 MG PO (08:39)
[2025-02-19] MEDS: NEURONTIN 100 MG PO (08:39)
[2025-02-19] MEDS: DELTASONE 5 MG PO (08:39)
[2025-02-19] MEDS: DELTASONE 2.5 MG PO (08:39)
[2025-02-19] MEDS: FLOMAX 0.4 MG PO (08:39)
[2025-02-19] MEDS: DELTASONE 10 MG PO (08:39)
[2025-02-19] MEDS: COLACE 100 MG PO (08:39)
[2025-02-19] MEDS: MYCOSTATIN CREAM 1 APPLIC TOPICAL (08:40)
[2025-02-19] MEDS: DESITIN MAXIMUM STRENGTH PASTE 1 APPLIC TOPICAL (08:40)
[2025-02-19 09:29] VITALS: BP 128/68; BP 133/61; PULSE 63; O2SAT 94
--- NOTE | 2025-02-19 10:29 | W.PN.ID1 ---
Date of Service
Date of Service: February 19, 2025
Today's Communication
- Tomorrow transition to doxycycline 100mg po bid through 03/01/25
-ID will sign off.
Assessment / Plan
# s/p Septic shock
# UTI with multi-drug resistant Enterobacter
#NIKO on CKD 3
# Intractable back pain status post L2 percutaneous vertebroplasty January 26 without improvement of back pain.
. January 20 lumbar MRI showed mild acute L2 compression fracture
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
- Bcx's neg to date.
- Ucx MDR-Enterobacter cloacae
- Continue Ertapenem 1g IV q24 (d4)
- Tomorrow transition to doxycycline 100mg po bid through 03/01/25
- Continue Contact isolation
# Conditions [employer]
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
Neuropathy
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
Hypothyroidism
Hypertension
Paroxysmal atrial fibrillation
Heart failure with reduced EF
CAD
Depression/anxiety
Rheumatoid arthritis on chronic prednisone 17.5 mg/d and Bactrim prophylaxis
CKD 3
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
L2 percutaneous vertebroplasty 01/26/25
Hard of hearing
Chief Complaint
-: UTI
Subjective / Review of Systems
Feels OK.
Vital Signs / Physical Exam
Vital Signs
Vital Signs
Temp Pulse Resp BP Pulse Ox
98 F 67 14 146/66 91
02/19/25 07:54 02/19/25 07:54 02/19/25 07:54 02/19/25 07:54 02/19/25 07:54
Physical Exam
Constitutional: No Acute Distress
Cardiovascular: Regular Rate and S1/S2
Gastrointestinal: Soft, Non Tender, Non Distended and Normal Bowel Sounds
Extremities: Negative Edema
Objective Data
Lab Data
Lab Results
02/19/25 05:27
02/19/25 05:27
PT 20.3 Sec (11.4-14.6) H 02/13/25 17:25
INR 1.71 02/13/25 17:25
APTT 50.9 Sec (23.4-35.0) H 02/13/25 17:25
Estimated Creat Clear 60 ml/min 02/19/25 05:27
Lactic Acid 1.7 mmol/L (0.7-2.0) 02/13/25 17:25
Total Bilirubin 0.4 mg/dl (0.2-1.3) 02/17/25 05:43
AST 18 U/L (17-59) 02/17/25 05:43
ALT 15 U/L (0-50) 02/17/25 05:43
Alkaline Phosphatase 97 U/L (38-126) 02/17/25 05:43
Most recent labs reviewed.
Micro Results:
02/13/25 12:51 Blood Culture - Final
Blood/Venous No Growth - Final Report
02/13/25 12:52 Blood Culture - Final
Blood/Venous No Growth - Final Report
02/13/25 12:52 Urine Culture - Final
Urine Enterobacter cloacae
02/13/25 18:21 MRSA Screen - Final
Nose No Methicillin Resistant Staphylococcus aureus isolated.
02/13/25 CT C/A/P: Dilation of the gallbladder and probable cholelithiasis. No clear abnormal gallbladder wall thickening or pericholecystic fluid identified at noncontrast CT. If there is clinical concern for cholecystitis, could be further
evaluated with follow-up ultrasound examination.
2. Diffuse wall thickening of the urinary bladder. This could partially be related to underdistention. Cystitis is also a consideration.
3. Pulmonary fibrosis as seen previously.
4. Advanced coronary and aortic atherosclerosis. Post endovascular repair of abdominal aortic aneurysm. Excluded aneurysm sac size either unchanged or minimally smaller.
02/13/25 CXR: MODERATE CHRONIC INFLAMMATORY INTERSTITIAL PNEUMONITIS in the peripheral aspect of both lower lungs (right greater than left) which appears unchanged.
--- NOTE | 2025-02-19 10:51 | W.PN.HOSP.TC ---
Today's Communication/Plan
-
dc to [facility]
Assessment / Plan
Assessment / Plan
NAD
Scleral Anicteric
MMM
No JVD
CTABL
RRR, S1/S2
Soft, NT, ND, BS+
Warm, Dry
AAOx3
Calm
Septic shock 2/2 UTI with MDRO. Had a straight cath for sample. Septic shock resolved.
- Cefepime switched to ertapenem on 02/16/25, Ucx Enterobacter cloacae MDR, BCx NGTD
-Per ID on discharge can discharge on Doxy 100 mg p.o. twice daily to 03/01
- Levophed off, started on midodrine, unlikely to need as bp >140.
-if bp >160 will need to start reinstating home antihypertensives slowly
- Maintain MAP greater than 65
- Stress dose steroids converted to chronic home dose steroid
Anemia
Acute on chronic, can be exacerbated by hydration during shock mgmt and even sepsis
Cont to trend for now
Transfuse for hemoglobin less than 7
Hgb stable. No luminal bleeding noted
TME likely related to sepsis and neuroglycopenia, resolved
Hypoglycemia, resolved
NIKO on CKD stage III, baseline 1.5 however creatinine now better and baseline
-Potentially postobstructive versus intrinsic renal (UTI) versus prerenal/ATN - ischemic
- Avoid nephrotoxins hypotension
- Nephrology following-Cr stabilized.
ILD
Not requiring supplemental oxygen
On Plaquenil and mmf
On 17.5 mg prednisone daily and PJP prophylaxis
-Hold Plaquenil and mmf resume on discharge
-restarted bactrim
Hypothyroidism
Continue Synthroid
P A-fib currently in sinus rhythm
Monitor on telemetry
Continue Eliquis
HTN
Restarted toprol
HFrEF, chronic
restart Lasix
restart lisinopril low dose
restart Toprol in the setting of septic shock
Hold Jardiance in the setting of likely cystitis
-May not be a candidate for future SGLT2i use do to UTI. Review of EMR culture data would suggest that he has a hx of recurrent UTI. Therefore, should not be on an SGLT2i at all going forward
Type 2 diabetes
Accu-Cheks
Sliding scale
Hold Jardiance sitagliptin.
-May not be a candidate for future SGLT2i use do to UTI. Review of EMR culture data would suggest that he has a hx of recurrent UTI. Therefore, should not be on an SGLT2i at all going forward
Interestingly looking at [facility] rec from [facility] also on a second DPP 4. On discharge this will need to be rectified as he should only be 1 the DPP 4 is do not typically cause hypoglycemia
Depression anxiety chronic
Continue sertraline
AAA s/p repair
Pulmonary hypertension and PAD
Chronic low back pain with lumbar fracture status post vertebroplasty
Oxycodone dose adjusted
DNR
d/w with ID-okay to dc after IV abx today
More than 30 minutes spent in discharge including
Final examination of the patient
Summarizing hospital stay
Instructions for continuing care to all relevant caregivers
Preparation of discharge records, prescriptions, and referral forms
Total time spent (in minutes): 52
Anticipated Discharge: Today
Subjective/Interval History
-
Date of Service: February 19, 2025
States of chronic low back pain
Drinking juices
States appetite is slowly improving
Send had bowel movement earlier today
Objective Data
-
Labs:
Laboratory Results
02/19/25
05:27
WBC 5.9
Hgb 7.7 L
Hct 25.4 L
Plt Count 180
Sodium 139
Potassium 4.0
Chloride 113 H
Carbon Dioxide 23
BUN 16
Creatinine 0.9
Glucose 92
Calcium 7.8 L
Vital Signs:
Vital Signs
Temp Pulse Resp BP Pulse Ox
98 F 67 14 146/66 91
02/19/25 07:54 02/19/25 07:54 02/19/25 07:54 02/19/25 07:54 02/19/25 07:54
I&O
02/18/25 02/19/25 02/20/25
06:59 06:59 06:59
Intake Total 480 / 480
Output Total 875 / 875 300 / 300
Balance -395 / -395 -300 / -300
--- NOTE | 2025-02-19 11:04 | W.DCSUMMARY ---
Discharge Summary
Discharge Data
Date of Admission: 02/13/25
Date of Discharge: 02/19/25
-
Pending Results: No
Hospital Course
89-year-old male with past medical history significant for hypothyroidism, hypertension, peripheral artery disease, AAA, CKD III, coronary artery disease, paroxysmal a-fib, DM II, HFrEF, pulmonary hypertension, depression/anxiety, interstitial lung
disease; who presented to ED for evaluation with altered mental state. Patient was found to be in septic shock. Patient urine culture with MDRO's. Straight cath was used to obtain sample. Patient was started on ertapenem. Infectious disease
was consulted. Patient blood pressure stabilized. Patient also had NIKO on CKD. Patient creatinine stabilized. Patient also had anemia which was expected secondary to exacerbated by hydration during shock management and sepsis. Patient was also
eval by critical care. Patient was transferred to medical floor. Patient blood pressure was stable and started to uptrend. Patient was restarted on metoprolol. Patient was complaining of severe back pain which was not relieved with oxycodone 5
mg as the dose was increased. Patient was having bowel movement. No luminal bleeding was noted. Hemoglobin remained stable at 7.7. Creatinine stabilized. Nephrology will also eval the patient recommend okay to restart Lasix. Lisinopril low-dose
was also restarted. Patient completed course of IV antibiotics in the hospital with plan to transition to p.o. doxycycline on discharge. SGLT2 inhibitor was stopped due to history of multiple UTI.
Discharge Plan
-
Patient Disposition: [facility]NF
Discharge Diagnosis/Procedures: Septic shock 2/2 UTI with MDRO.
Acute on chronic, can be exacerbated by hydration during shock mgmt and even sepsis
TME likely related to sepsis and neuroglycopenia, resolved
Hypoglycemia, resolved
NIKO on CKD stage III
Condition: Fair
Diet: 2 Gram Sodium, Diabetic, Carb Controlled and Restrict fluids to 48 oz
Activity: With assistance and As tolerated
Driving Restrictions: Not until seen by your Dr
Activity Restrictions/Additional Instructions:
Wound Care Instructions
R plantar tawana toe and L arm: clean with soap and water, Vaseline gauze and dry dressing daily and prn drainage. Once drainage less can do every 2 days.
Follow up at wound care center, *if wounds not healing, call for an appointment.
Doxycycline Precautions
�� Take with at least 6 oz H2O
�� Take with food but no calcium containing products like milk or cheese
�� Ideally you would not take any multivitamins, calcium, magnesium or zinc containing products.
�� If you must take one of these products make sure that the pills are by at least 3 hours.
�� Sit up for at least 30 minutes after each dose to prevent heartburn.
�� Your skin will be more sensitive to the sun while you are on doxycycline - it will be very easy for you to get a sunburn.
Referrals:
Valentino Elder MD [Active, Pulmonary Medicine] - in four to six weeks
UNKNOWN - PT NOT,INTERVIEWE [Family Provider, Internal Medicine] - in less than 1 week
Prescriptions:
New
doxycycline hyclate 100 mg Capsule
100 mg PO Q12 Qty: 20 0RF
oxycodone 10 mg tablet
10 mg PO TID PRN (Reason: severe pain) Qty: 10 0RF
Continued
sulfamethoxazole-trimethoprim 800-160 mg Tablet
1 tab PO MOWEFR
mycophenolate mofetil 500 mg Tablet
1,000 mg PO BID
Eliquis 5 mg tablet
5 mg PO BID
gabapentin 300 mg Capsule
300 mg PO BID
acetaminophen 325 mg tablet
650 mg PO Q4HPRN PRN (Reason: mild pain/fever)
guaifenesin 600 mg tablet extended release 12hr
600 mg PO Q12H
levothyroxine [Synthroid] 100 mcg Tablet
100 mcg PO HS
lisinopril 5 mg Tablet
5 mg PO DAILY
metoprolol succinate 50 mg tablet extended release 24 hr
50 mg PO DAILY
prednisone 2.5 mg Tablet
17.5 mg PO DAILY
sitagliptin 100 mg Tablet
100 mg PO DAILY
furosemide [Lasix] 40 mg Tablet
40 mg PO DAILY
benzonatate 100 mg Capsule
100 mg PO Q8HPRN PRN (Reason: cough)
difluprednate 0.05 % Drops
1 drp LEFT EYE QID
docusate sodium [Colace] 100 mg Capsule
100 mg PO BID Qty: 0 0RF
atorvastatin 40 mg Tablet
40 mg PO HS
methocarbamol 500 mg Tablet
500 mg PO Q6HPRN PRN (Reason: muscle spasms)
ondansetron HCl 4 mg Tablet
4 mg PO Q6HPRN PRN (Reason: nausea/vomiting)
sertraline 50 mg Tablet
50 mg PO HS
zinc oxide 13 % Cream
1 applic TOPICAL BID
Patient Comments:
apply to sacrum
Uhrgcqvjpbn-Hoziq-NAW Complex [id number] mg Tablet
1 tab PO DAILY
lidocaine 4 % adhesive patch,medicated
1 patch topical DAILY
Rx Instructions:
lower back
tamsulosin 0.4 mg capsule
0.4 mg PO DAILY
Discontinued
Jardiance 25 mg Tablet
12.5 mg PO DAILY
saxagliptin 5 mg Tablet
5 mg PO DAILY
oxycodone 5 mg tablet
5 mg PO Q6HPRN PRN (Reason: moderate pain)
Discharge Orders:
Discharge Patient (As Directed); Ordered 02/19/25
Ordered By: Abdon Gorman
Discharge Date and Time
Print Language: SYRIAC
[2025-02-19 11:32] LABS: Glucose - Point of Care 130 mg/dl (70-99)
[2025-02-19] MEDS: INVANZ 60 MG IV (11:37)
[2025-02-19 15:24] VITALS: BP 129/61
--- NOTE | 2025-02-19 15:27 | CM ---
Addendum entered by Nena Thompson 02/19/25 15:38:
[place]
Original Note:
CM met with pt at bedside to discuss discharge today. He lives at [facility] and receives VN services there. Pt has had [facility] and [facility] in the past. He requests referral to [facility].
Referral sent to [facility] per pt request.
Pt's family will provide transport to [facility] later today.
[2025-02-19] MEDS: TYLENOL 650 MG PO (16:29)
== END 2025-02-19 17:11 | disposition home health service (06) | DRG 871 ==
LOC: 3 WEST ACU 15:58
PROVIDERS: Internal Medicine; ADMITTING PHYSICIAN Hospitalist; ATTENDING PHYSICIAN Hospitalist; CONSULT PHYSICIAN Internal Medicine; CONSULT PHYSICIAN Internal Medicine Critical Care Medicine; CONSULT PHYSICIAN Internal Medicine Infectious Disease; EMERGENCY PHYSICIAN Emergency Medicine
DX: A41.9 Sepsis, unspecified organism (principal); G92.8 Other toxic encephalopathy; R65.21 Severe sepsis with septic shock; S32.000A Wedge compression fracture of unspecified lumbar vertebra, initial encounter for closed fracture; Z16.24 Resistance to multiple antibiotics; N39.0 Urinary tract infection, site not specified; I13.0 Hypertensive heart and chronic kidney disease with heart failure and stage 1 through stage 4 chronic kidney disease, or unspecified chronic kidney disease; I50.22 Chronic systolic (congestive) heart failure; N17.9 Acute kidney failure, unspecified; D84.821 Immunodeficiency due to drugs; E87.1 Hypo-osmolality and hyponatremia; E87.20 Acidosis, unspecified; N18.30 Chronic kidney disease, stage 3 unspecified; E11.22 Type 2 diabetes mellitus with diabetic chronic kidney disease; E11.40 Type 2 diabetes mellitus with diabetic neuropathy, unspecified; E11.649 Type 2 diabetes mellitus with hypoglycemia without coma; J84.10 Pulmonary fibrosis, unspecified; E03.9 Hypothyroidism, unspecified; D63.1 Anemia in chronic kidney disease; I48.0 Paroxysmal atrial fibrillation; Z79.01 Long term (current) use of anticoagulants; Z79.890 Hormone replacement therapy; F41.9 Anxiety disorder, unspecified; F32.A Depression, unspecified; H91.90 Unspecified hearing loss, unspecified ear; Z88.5 Allergy status to narcotic agent; E78.00 Pure hypercholesterolemia, unspecified; I27.20 Pulmonary hypertension, unspecified; Z66 Do not resuscitate; I25.10 Atherosclerotic heart disease of native coronary artery without angina pectoris; M06.9 Rheumatoid arthritis, unspecified; E11.51 Type 2 diabetes mellitus with diabetic peripheral angiopathy without gangrene; F17.200 Nicotine dependence, unspecified, uncomplicated; G89.29 Other chronic pain; I70.0 Atherosclerosis of aorta; J32.3 Chronic sphenoidal sinusitis; K21.9 Gastro-esophageal reflux disease without esophagitis; N40.0 Benign prostatic hyperplasia without lower urinary tract symptoms; Z79.624 Long term (current) use of inhibitors of nucleotide synthesis; Z79.84 Long term (current) use of oral hypoglycemic drugs; Z79.899 Other long term (current) drug therapy; Z86.79 Personal history of other diseases of the circulatory system; Z96.651 Presence of right artificial knee joint
CPT/HCPCS: 70450; 71045; 71250; 74176; 80048; 80053; 80202; 81003; 81015; 82248; 82607; 82728; 82746; 82962; 83540; 83550; 83605; 83615; 83735; 84100; 85014; 85018; 85025; 85027; 85045; 85610; 85730; 86850; 86900; 86901; 87040; 87070; 87077; 87086; 87186; 93005; 96361; 96374; 96375; 97116; 97163; 97167; 97530; 99291; J1335; J7030

== ENCOUNTER 2025-02-21 14:30 | Inpatient (IN) | payer MEDICARE, OTHER, SELFPAY ==
[2025-02-21] VITALS (32 sets, daily range): BP systolic 76–151; BP diastolic 36–81
[2025-02-21] MEDS: NSS 3000 ML IV (12:17)
[2025-02-21 12:29] LABS: Urine Character Clear (Clear)
[2025-02-21 12:31] LABS: Hematocrit 27.1 % (39.0-52.0); Hemoglobin 8.1 g/dL (13.0-18.0); Mean Corp Hgb Conc. 29.9 g/dL (33.0-37.0); Mean Corpuscular Volume 98.5 fL (80.0-94.0); Nucleated Red Blood Cells % 0 % (-); Platelet Count 180 10^3/uL (130-400); Red Cell Dist. Width 16.3 % (11.5-14.5)
[2025-02-21 12:38] LABS: Urine Red Blood Cell 0-2 /HPF (0-2); Urine Squamous Cell 0-2 /LPF (Few)
--- NOTE | 2025-02-21 12:39 | PHANOTE ---
med rec note-no paperwork with patient. patient just recently here, but only have medical records to as a source for medication. called nurse home at [phone] spoke to vangie who faxing meds list over
[2025-02-21 12:40] LABS: INR 1.75; PT 20.6 Sec (11.4-14.6)
[2025-02-21 12:41] LABS: APTT 44.9 Sec (23.4-35.0)
[2025-02-21 12:45] LABS: ALT (SGPT) 13 U/L (0-50); AST (SGOT) 19 U/L (17-59); Albumin 2.9 g/dl (3.5-5.0); Alkaline Phosphatase 111 U/L (38-126); Blood Urea Nitrogen 14 mg/dl (9-20); Calcium 8.1 mg/dl (8.4-10.2); Carbon Dioxide 24 mmol/L (22-30); Chloride 110 mmol/L (98-107); Estimated Creatinine Clearance 62 ml/min; Glucose 88 mg/dl (70-99); Magnesium 2.0 mg/dl (1.6-2.3); Potassium 3.6 mmol/L (3.5-5.1); Sodium 140 mmol/L (135-145); Total Protein 5.2 g/dl (6.3-8.2); eGFR > 60.00
--- NOTE | 2025-02-21 12:52 | ED.GENMED ---
History of Present Illness
General
Chief Complaint: Back Pain
Source: patient, records and family
Time Seen by Provider: 02/21/25 11:45
History of Present Illness
History of Present Illness:
89-year-old male with past medical history of CVA, interstitial lung disease, previous AAA, atrial fibrillation, peripheral vascular and arterial disease, CKD, vcb-lyemytx-vkhghluuw diabetes, recently admitted at this facility for severe sepsis
secondary to suspected multidrug-resistant urinary tract infection presenting back to the emergency department via EMS from his independent living facility, [facility], after patient was discharged in family stating patient has not vomited, no p.o.
intake to solids or liquids with continued fevers. Patient himself is not in any pain past his baseline although son does note that patient is on both oxycodone and a muscle relaxant due to his chronic pain.
Past History
Past History
ED Past Medical History: Arrthythmia, CHF, COPD, CVA, HTN, Hypercholesterolemia, NIDDM, Other (Interstitial lung disease) and Other (AAA)
ED Past Surgical History: Orthopedic (Right knee replacement, kyphoplasty) and Other (Left carotid endarterectomy, aortic aneurysm repair)
Social History
Tobacco: Non-smoker
Alcohol: None
Drug: None
Personal:
Living: assisted living
Review of Systems
Review of Systems
All Other Systems: ROS reviewed and negative except as documented in HPI and ROS
Phy Exam
Physical Exam
Physical Exam:
GENERAL: Alert , in no apparent distress, very hard of hearing
EYE: clear conjunctiva b/l
HEAD: NCAT
ENT: o/p clr, mmm.
CARDIAC: Regular rate and rhythm .
LUNGS: Clear breath sounds bilaterally, no acute respiratory distress, no wheezes/rales/rhonchi
ABDOMEN: Soft, without focal tenderness, no r/g, no cvat
NEUROLOGICAL: Alert and oriented to self and place but not time
SKIN: hot to the touch and dry, skin intact.
MUSCULOSKELETAL: No edema, well perfused.
PSYCH: Normal and appropriate interaction.
Scores
Heart Failure Risk
Heart Failure Risk Score: Not Applicable
Heart Score for Chest Pain Patients
STEMI patient?: Not applicable
Withdrawal Assessment of Alcohol
Withdrawal Assessment Completed?: Not applicable
Course
Orders/Labs/Results
Orders:
Orders
02/21/25 11:53
Electrocardiogram (*1) Urgent
Reason for Study: Fatigue / Weakness
EKG- Treatment ONCE
02/21/25 12:13
0.9% Sodium Chloride 1000 ml [Nss] 3,000 ml IV NOW STA
02/21/25 12:14
CR Chest Portable - 1 View Urgent
Comment:
Reason For Exam: fever, AMS
Reason Study Needs to be Portable: Patient Unstable
02/21/25 12:20
CPK [Creatine Phosphokinase] Urgent
Comprehensive Metabolic Panel Urgent
Magnesium Urgent
PTT Urgent
Prothrombin Time Urgent
TSH Urgent
02/21/25 12:21
Complete Blood Count/With Diff Urgent
Lactic Acid Q4H
Comment: CANCEL 2nd LACTIC ACID IF 1st LACTIC ACID IS LESS THAN 2
Urinalysis Reflex To Culture Urgent
Date Specimen was Collected: 02/21/25
Time Specimen was Collected: 12:18
Urine Microscopic Reflex Cult Urgent
Urine Culture Urgent
KIKA Source: U
Specimen Description:
Date Specimen was Collected: 02/21/25
Time Specimen was Collected: 12:18
02/21/25 12:36
Ertapenem [Invanz] 1,000 mg 0.9% Sodium Chloride [Nss] 50 ml IV NOW
02/21/25 13:00
Blood Culture Q30M
KIKA Source: Blood/Venous
Specimen Description:
02/21/25 13:56
Admit/Transfer Patient As Directed
Co-Sign Provider:
Level of Care: Inpatient admission
Assign to:: IMU- Intermediate Care
Physician / Group: levy
Diagnosis: sepsis uti
Reason for Hospitalization: sepsis uti
Expected length of stay greater than two midnights?: Yes
ELOS- Estimated Length of Stay in days: 2
I certify the patient meets the requirements for IP care: Yes
PRN Pain Medication Management As Directed
May give lesser potent ordered pain med per pt: Yes
preference::
Protocol:: Medication orders for pain may be administered in a
manner that supports deferring to patient preference
when the pt is:
- Requesting an ordered lesser potent pain medication.
Least to most potent pain medications are defined
as: acetaminophen < NSAID < tramadol < opioids
(morphine, oxycodone, hydromorphone).
- Requesting a lesser dose of the same medication IF
ORDERED.
- Requesting a less intrusive route of administration
if both routes are prescribed by the provider (PO <
IV).
02/21/25 13:58
Code Status As Directed
Resuscitation Status: Do not resuscitate
Reached after discussion with pt or family/Healthcare POA: Yes
02/21/25 13:59
DNR Bracelet Application ONCE
02/21/25 14:20
PRN Pain Medication Management As Directed
May give lesser potent ordered pain med per pt: Yes
preference::
Protocol:: Medication orders for pain may be administered in a
manner that supports deferring to patient preference
when the pt is:
- Requesting an ordered lesser potent pain medication.
Least to most potent pain medications are defined
as: acetaminophen < NSAID < tramadol < opioids
(morphine, oxycodone, hydromorphone).
- Requesting a lesser dose of the same medication IF
ORDERED.
- Requesting a less intrusive route of administration
if both routes are prescribed by the provider (PO <
IV).
02/21/25 14:38
Blood Culture Q30M
KIKA Source: Blood/Venous
Specimen Description:
02/24/25 11:00
DC Protocol for Telemetry ONCE
Abnormal Lab Results
02/21/25 02/21/25
12:20 12:21
RBC 2.75 L 10^6/uL
(4.70-6.10)
Hgb 8.1 L g/dL
(13.0-18.0)
Hct 27.1 L %
(39.0-52.0)
MCV 98.5 H fL
(80.0-94.0)
MCHC 29.9 L g/dL
(33.0-37.0)
RDW 16.3 H %
(11.5-14.5)
Absolute Lymphs (auto) 0.7 L 10^3/uL
(1.2-3.4)
Immature Gran % 0.6 H %
(0-0.5)
Neutrophils % 80.8 H %
(42.2-75.2)
Lymphocytes % 10.9 L %
(20.5-51.1)
PT 20.6 H Sec
(11.4-14.6)
APTT 44.9 H Sec
(23.4-35.0)
Chloride 110 H mmol/L
(98-107)
Calcium 8.1 L mg/dl
(8.4-10.2)
Creatine Kinase 49 L U/L
(55-170)
Total Protein 5.2 L g/dl
(6.3-8.2)
Albumin 2.9 L g/dl
(3.5-5.0)
TSH 9.82 H uIU/ml
(0.47-4.68)
Urine WBC (Reflex) 11-15 A /HPF
(0-5)
Urine Bacteria (Reflex) Few A
(Negative)
Urine Albumin (Reflex) 2+ A
(Neg - Trace)
02/21/25 12:21
02/21/25 12:20
Vital Signs
Initial and Last Documented VS:
Initial Vital Signs
Temp Pulse Resp BP
100.8 F H 74 16 106/36
02/21/25 11:50 02/21/25 11:50 02/21/25 11:50 02/21/25 11:50
Last Documented Vital Signs
Temp Pulse Resp BP Pulse Ox
100.8 F H 55 13 96/48 93
02/21/25 11:50 02/21/25 15:45 02/21/25 15:45 02/21/25 15:30 02/21/25 15:45
MDM/Problems Addressed
Differential Diagnosis Includes:
- Sepsis/bacteremia
- Continued urinary tract infection
- Pneumonia or other lung pathology
-Anemia
- Electrolyte imbalance
- Deconditioning
MDM/Problems Addressed:
89-year-old male presenting to the ER for evaluation of generalized weakness, not eating or drinking and continued fevers. Recent admission here and discharged 2 days ago, diagnosed with severe sepsis secondary to a multidrug-resistant urinary
tract infection. Temperature of 100.8 here. Otherwise per son appears to be around his baseline other than the fact that patient is not able to get up and eat. Mentally, son states patient is at his baseline. Sepsis workup initiated. Patient
was treated with Invanz while he was admitted so we will reinitiate this. Patient will be admitted for further treatment and monitoring.
Chronic conditions affecting care: Other (Urinary tract infection/drug-resistant organisms)
*Radiology
Radiology exam reviewed: radiology read reviewed
*Pulse Oximetry
SaO2: 96
Nasal Cannula flow liters per minute: 3
Patient hypoxic: yes
*EKG
Interpreted by ED Provider?: Yes
Heart Rate: 73
Rate: normal
Rhythm: sinus
G[place]: normal axis
Ischemia: no ischemia
*Design Manager Interpretation
Rate: normal
Heart Rate: 75
Rhythm: sinus
*Critical Care Note
Total Time (30-74mins, 75-104mins- exclusive of procedures): Not Applicable
Data Reviewed
Review of Other/Old Records Reveals: Labs, Records, Radiology Studies and Discharge Summary
Patient Management
Social determinants of health affecting care: Living situation
Discussion with other providers: Hospitalist
Escalation/DeEscalation of care consider admission/obs:
Patient's labs reassuring and are mostly improved from when he was discharged however given he is still febrile, unable to ambulate and not eating or drinking will plan for admission for continued IV antibiotics and supportive care. Hospitalist
team notified and accepts for continued evaluation and treatment.
ED Attending Note
-
Portions of this chart may have been created with voice recognition software.� Occasional wrong word or��sound alike� substitutions may have occurred due to the inherent limitations of voice recognition software.
Discharge Plan
Departure
Patient Disposition: Admit
Date of Disposition: 02/21/25
Time of Disposition: 13:28
Presentation/result/management discussed w/ accepting MD/DO: Hospitalist
Discharge Problem:
Fever, Weakness
Interventions
Interventions:
*Risk Screen - Suicide Last Done: 02/21/25 12:10
*Neglect/Abuse Screening Last Done: 02/21/25 12:10
*ED- Fall Risk Assessment Last Done: 02/21/25 12:09
*ED COVID-19 Vaccine History Last Done: 02/21/25 12:09
ED-Musculoskeletal Assessment Last Done: 02/21/25 12:11
[2025-02-21] MEDS: INVANZ 60 MG IV (12:57)
[2025-02-21 13:16] LABS: TSH 9.82 uIU/ml (0.47-4.68)
--- NOTE | 2025-02-21 14:03 | HPS.HSE ---
Addendum entered and electronically signed by Gabriel Coy MD 02/21/25 17:30:
Patient requiring levophed. Added stress dose steroids because takes 17.5 mg prednisone daily.
Original Note:
Family Physician
-
Family Physician: TOM Schneider
Chief Complaint
-
fever
History of Present Illness
89-year-old male past medical history of CAD, paroxysmal atrial fibrillation, pulmonary hypertension, interstitial lung disease, rheumatoid arthritis, chronic HFrEF, hypothyroidism, hypertension, PAD, abdominal aortic aneurysm status post endograft
repair,, CKD 3, diabetes, anxiety/depression, chronic back pain, neuropathy, rheumatoid arthritis, hearing loss, presenting for persistent urinary incontinence, altered mental status, weakness, decreased appetite and ongoing fever since recent
discharge. No cough or shortness of breath. No vomiting or diarrhea. Ongoing back pain from recent back surgery on 01/26.
He was recently admitted from 02/13 to 02/19 for septic shock secondary to multidrug-resistant Enterobacter urinary tract infection. Patient was treated with ertapenem. Patient also had severe back pain not relieved with oxycodone and dose was
increased.
He had continued fever since discharge. No nausea or vomiting. No pain.
Medical History
Past Medical History
Past Medical History: Reports Other (CAD, paroxysmal atrial fibrillation, pulmonary hypertension, interstitial lung disease, rheumatoid arthritis, chronic HFrEF, hypothyroidism, hypertension, PAD, abdominal aortic aneurysm status post endograft
repair,, CKD 3, diabetes, anxiety/depression, chronic back pain, neuropathy, rheumatoid arth)
Past Surgical History: Reports Other (Orthopedic (Right knee replacement, kyphoplasty) and Other (Left carotid endarterectomy, aortic aneurysm repair))
Social History
Tobacco: Non-smoker
Alcohol: None
Drug: None
Family History
Family History: Not pertinent
Allergies / Home Medications
Allergies reflects when Allergies were last updated in [facility].
Home Medications with original date entered in [facility]
Allergy/Medication List:
Allergies
Allergy/AdvReac Type Severity Reaction Status Date / Time
codeine AdvReac Vomiting Verified 02/13/25 17:11
Home Medications
mycophenolate mofetil 500 mg tablet 1,000 mg PO BID interstitial lung disease 03/03/24
sulfamethoxazole 800 mg-trimethoprim 160 mg tablet 1 tab PO MOWEFR Infection prophylaxis 03/03/24
apixaban 5 mg tablet (Eliquis) 5 mg PO BID AFib 04/19/24
gabapentin 300 mg capsule 300 mg PO BID Pain 06/08/24
acetaminophen 325 mg tablet 650 mg PO Q4HPRN PRN mild pain/fever 08/12/24
guaifenesin 600 mg tablet, extended release 12 hr 600 mg PO Q12H Cough 08/12/24
levothyroxine 100 mcg tablet (Synthroid) 100 mcg PO DAILY Thyroid 11/03/24
metoprolol succinate 50 mg tablet,extended release 24 hr 50 mg PO DAILY Blood Pressure 11/03/24
sitagliptin 100 mg tablet 100 mg PO DAILY Diabetes 12/08/24
furosemide 40 mg tablet (Lasix) 40 mg PO DAILY Fluid Retention/Swelling 01/15/25
benzonatate 100 mg capsule 100 mg PO Q8HPRN PRN cough 01/19/25
difluprednate 0.05 % eye drops 1 drp LEFT EYE QID Eye Condition 01/21/25
docusate sodium 100 mg capsule (Colace) 100 mg PO BID Constipation #0 caps 01/28/25
atorvastatin 40 mg tablet 40 mg PO HS High Cholesterol 02/13/25
glucosamine 375 ym-kljgtkfvd-ogr no1 500 mg-C 15 mg-nissa 0.5 mg tablet (Clhrctqiwjt-Nrlfjinnryl-ZCZ Complex) 1 tab PO DAILY Supplement 02/13/25
lidocaine 4 % topical patch 1 patch topical DAILY lower back 02/13/25
methocarbamol 500 mg tablet 500 mg PO Q6HPRN PRN muscle spasms 02/13/25
ondansetron HCl 4 mg tablet 4 mg PO Q6HPRN PRN nausea/vomiting 02/13/25
sertraline 50 mg tablet 50 mg PO HS Mental Health 02/13/25
tamsulosin 0.4 mg capsule 0.4 mg PO DAILY Urinary Issue 02/13/25
zinc oxide 13 % topical cream 1 applic topical BID sacrum 02/13/25
doxycycline hyclate 100 mg capsule 100 mg PO Q12 #20 caps 02/19/25
empagliflozin 25 mg tablet 12.5 mg PO DAILY 02/21/25
oxycodone 10 mg tablet 10 mg PO TIDPRN PRN severe pain 02/21/25
oxycodone 5 mg tablet 5 mg PO Q6HPRN PRN moderate pains 02/21/25
saxagliptin 5 mg tablet 5 mg PO DAILY 02/21/25
Review of Systems
-
History Source: Patient
A 12 point ROS was completed and negative except as noted: Yes
Constitutional: Reports No Symptoms
EENT: Reports No Symptoms
Respiratory: Reports No Symptoms
Cardiac: Reports No Symptoms
Abdomen/GI: Reports No Symptoms
: Reports See HPI
Musculoskeletal: Reports No Symptoms
Skin: Reports No Symptoms
Neurological: Reports No Symptoms
Endocrine: Reports No Symptoms
Hematologic/Lymphatic: Reports No Symptoms
Psych: Reports No Symptoms
Physical Exam
Vital Signs
Vital Signs
Temp Pulse Resp BP Pulse Ox
100.8 F H 62 12 98/45 96
02/21/25 11:50 02/21/25 13:00 02/21/25 13:00 02/21/25 13:00 02/21/25 12:56
Physical Exam
General: Well Developed, Well Nourished and No Apparent Distress
HEENT: NormoCephalic, Moist mucous membranes and Atraumatic
Respiratory: Clear
Cardiac: S1/S2 and Regular Rhythm; No Murmur or Rub
GI: Soft, Non Tender, Non Distended and Normal Bowel Sounds; No Organomegaly
Rectal: Deferred by Provider
Musculoskeletal: No Clubbing, No Cyanosis and No Edema
Skin: No Rash
Neuro: Nonfocal/grossly intact
Laboratory Results
-
02/21/25 12:21
02/21/25 12:20
Laboratory Results
PT 20.6 Sec (11.4-14.6) H 02/21/25 12:20
INR 1.75 02/21/25 12:20
APTT 44.9 Sec (23.4-35.0) H 02/21/25 12:20
Lactic Acid Cancelled 02/21/25 16:15
Total Bilirubin 0.7 mg/dl (0.2-1.3) 02/21/25 12:20
AST 19 U/L (17-59) 02/21/25 12:20
ALT 13 U/L (0-50) 02/21/25 12:20
Alkaline Phosphatase 111 U/L (38-126) 02/21/25 12:20
Data Reviewed
-
Lab Data: Labs Reviewed by me
Old Records: Reviewed
Impression/Plan
-
IMPRESSION:
PLAN:
# Sepsis (fever, hypotension) secondary to persistent UTI
# Recent UTI with multidrug-resistant Enterobacter
-Urinalysis not particularly impressive for UTI although currently on doxycycline
- Chest x-ray shows slightly more prominent asymmetric opacities suggestive the left lung base may be related to atelectasis/subtle/early pneumonia
-Clinically doubt pneumonia
-IV fluids
-Check blood cultures
- Resume ertapenem
- Discharge on doxycycline until 03/01
-May possibly need to consider MRI lumbar spine to evaluate for osteomyelitis/spinal abscess after recent vertebroplasty
- ID consulted
CAD
- Continue statin
Paroxysmal atrial fibrillation
- Continue Eliquis
Pulmonary hypertension
Interstitial lung disease
- Continue mycophenolate
- Immunocompromised on chronic prophylactic Bactrim, prednisone
- Uses 2.5 L of oxygen at night at baseline
Rheumatoid arthritis
- On chronic prednisone
Chronic HFrEF
- Jardiance stopped due to frequent UTI
- Hold Lasix
Hypothyroidism
- Continue levothyroxine
Essential hypertension
-Continue metoprolol
PAD
Abdominal aortic aneurysm status post endograft repair
CKD 3
- Renal function at baseline
Chronic anemia
- Hemoglobin stable 8.1
Type 2 diabetes
- Hold saxagliptin, Jardiance
- Insulin sliding scale
Diabetic neuropathy
- Continue gabapentin
Anxiety/depression
Chronic back pain status post L2 percutaneous vertebroplasty on January 26
- Continue oxycodone
Hearing loss
DNR/DNI
DVT prophylaxis�heparin
Regular diet
[2025-02-21] MEDS: LEVOPHED 250 IV (15:24)
--- NOTE | 2025-02-21 15:33 | CON.ID ---
Consultation
-
Date/Time Consultation Requested: 02/21/2025 1353
Date/Time Consultation Performed: 02/21/2025 1500
Requesting Provider: Dr. Coy
Performing Provider: Dr. Blackwood
Reason for Consultation: Fever
Chief Complaint / Past History
History of Present Illness
Spencer Enriquez is an 89-year-old man being evaluated at the request of Dr. Coy regarding fever. History is obtained from chart review, along with patient interview. Additional history was obtained from the patient's son who was at the bedside.
The patient is known to the Infectious Diseases service, having been seen on a recent admission dated 02/13/2025. In review, the patient has a significant past medical history of diabetes, rheumatoid arthritis, interstitial lung disease maintained
on mycophenolate and high-dose prednisone, and also on prophylactic Bactrim 3 times a week who presented with change in mental status. He had a history of chronic back pain for the past 3 years became acutely worse and he has had several
hospitalizations due to the pain. On 01/26/2025 he underwent L2 vertebroplasty in the treatment of an L2 compression fracture. He was subsequently transferred back to his assisted living facility, but found to be confused and sent back to the ""hospital. At that point in time his glucose was noted to be low. The patient was also hypotensive and with decreased urinary output. During his hospitalization he was found to have a urinary tract infection with a multidrug-resistant
Enterobacter. He received a course of ertapenem, and at discharge on 02/19, subsequently was transitioned to oral doxycycline, to continue through 03/01/2025.
He presents back to the hospital today secondary to decreased mentation. The son reports that he has had difficulty with pain control, and overall mobility secondary to his low back discomfort. He reports a poor appetite, and intermittent
incontinence of urine.
In the ER, the patient was not found to have a leukocytosis, but triage temperature was found to be 100.8 rectally.
Past History
Additional Past Medical History:
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
Neuropathy
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
Hypothyroidism
Hypertension
Paroxysmal atrial fibrillation
Heart failure with reduced EF
CAD
Depression/anxiety
Rheumatoid arthritis on chronic plaquenil, prednisone 17.5 mg/d and Bactrim prophylaxis
CKD 3
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
L2 percutaneous vertebroplasty 01/26/25
Hard of hearing
Allergy History:
codeine Adverse Reaction (Verified 02/13/25 17:11)
Vomiting
Medications Reviewed: Yes
Current Antibiotics:
Ertapenem
Social History
Tobacco: Former Smoker
Alcohol: None
Drug: None
Living: Assisted Living ([facility])
Family History
Family History: Not Pertinent
Review of Systems
Vital Signs
Temp Pulse Resp BP Pulse Ox
100.8 F H (rectal) 59 11 89/46 96
02/21/25 11:50 02/21/25 15:00 02/21/25 15:00 02/21/25 15:00 02/21/25 12:56
Physical Exam
Physical Exam
Constitutional: Comfortable, Chronically Ill and Non-toxic
Eyes: No Conjunctival Hemorrhage and Sclera Anicteric
Oral: No Thrush
Cardiovascular: S1/S2; Negative S3/S4
Pulmonary: Negative Wheezes, Rales or Rhonchi
Gastrointestinal: Non Tender, Non Distended and Normal Bowel Sounds
Musculoskeletal: Other (Tenderness in the right posterior iliac spine area); Negative Spinal Tenderness
Skin: Warm and Dry; Negative Rash or Jaundice
Neurological: Awake and Other (Hard of hearing)
Psychological: Calm
Lab / Diagnostic Study Results
02/21/25 12:21
02/21/25 12:20
Abs Immat Gran (auto) 0.0 10^3/uL (0-0.05) 02/21/25 12:21
Absolute Neuts (auto) 5.5 10^3/uL (1.4-6.5) 02/21/25 12:21
Absolute Lymphs (auto) 0.7 10^3/uL (1.2-3.4) L 02/21/25 12:21
Absolute Monos (auto) 0.5 10^3/uL (0.1-0.6) 02/21/25 12:21
Absolute Basos (auto) 0.0 10^3/uL (0-0.2) 02/21/25 12:21
Immature Gran % 0.6 % (0-0.5) H 02/21/25 12:21
Neutrophils % 80.8 % (42.2-75.2) H 02/21/25 12:21
Lymphocytes % 10.9 % (20.5-51.1) L 02/21/25 12:21
Monocytes % 7.2 % (1.7-9.3) 02/21/25 12:21
Eosinophils % 0.4 % (0-6) 02/21/25 12:21
Basophils % 0.1 % (0-2) 02/21/25 12:21
PT 20.6 Sec (11.4-14.6) H 02/21/25 12:20
INR 1.75 02/21/25 12:20
Lactic Acid Cancelled 02/21/25 16:15
Ur Squamous Epith Cells 0-2 /LPF (Few) 02/21/25 12:21
Microbiology Results
Micro:
02/21/25 14:38 Blood Culture - Pending
Blood/Venous
02/21/25 13:00 Blood Culture - Pending
Blood/Venous
02/21/25 12:21 Urine Culture - Pending
Urine
Imaging:
02/21/2025 CXR (portable):Slightly prominent markings, as described, felt to be related to technical factors. Mild pulmonary edema would be difficult to exclude with certainty. Slightly more prominent asymmetric opacity suggested at the left lung
base resulting in slight obscuration of left diaphragm. This may be related atelectasis or subtle/early pneumonia.
Assessment / Plan
Ongoing/intractable low back pain
Recent Hx MDRO UTI (Enterobacter cloacae)
Low-grade fever
Normal white count with left shift
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
Neuropathy
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
Hypothyroidism
Hypertension
Paroxysmal atrial fibrillation
Heart failure with reduced EF
CAD
Depression/anxiety
Rheumatoid arthritis on chronic plaquenil, prednisone 17.5 mg/d and Bactrim prophylaxis
CKD 3
Recommendations:
At present, not clear whether symptomatology is secondary to ongoing infection. The patient recently was treated for a multidrug-resistant urinary tract infection and was still on doxycycline therapy.
Will placed back on ertapenem.
Follow pending cultures.
Further recommendations as additional data is returned.
[2025-02-21 15:52] LABS: Glucose - Point of Care 76 mg/dl (70-99)
--- NOTE | 2025-02-21 17:20 | PTCARENOTE ---
Patient arrived to unit, very [place]. Son westley here and provided hearing aides which assisted communication. Pt drowsy but arousable. Sensitive to touch and yells out when startled. SB with 1st degree and prolonged QT. Oxygen at 2L, pulse ox dropping
to 85%, oxygen increased to 3L NC, pulse ox 99%. Lungs diminished but clear. Pt requests urinal and passes clear yellow urine. LEVOPHED infusing @2mcg. son assisted with admission questions and confirms his contact info before leaving bedside.
[2025-02-21] MEDS: NSS 1000 IV (17:38)
[2025-02-21 18:04] LABS: Glucose - Point of Care 55 mg/dl (70-99)
[2025-02-21] MEDS: DEXTROSE 50% SYRINGE 12.5 GRAMS IV (18:25)
[2025-02-21] MEDS: SOLU-CORTEF 100 MG IV (18:25)
[2025-02-21] MEDS: FLUSH (NSS) 3 FLUSH IV (18:27)
[2025-02-21 18:34] LABS: Glucose - Point of Care 53 mg/dl (70-99)
[2025-02-21] MEDS: D5/0.9% SODIUM CHLORIDE 1000 IV (18:49)
[2025-02-21] MEDS: NOVOLOG FLEXPEN-LOW RESISTANCE SC (18:50)
[2025-02-21 19:09] LABS: Glucose - Point of Care 106 mg/dl (70-99)
--- NOTE | 2025-02-21 19:34 | GLUCOSE ---
SITUATION:
CBS 55 drank 4 oz OJ, repeat CBS 53 and then pt refuses to drink any more juice. D50 given per MD order and CBS 106
BACKGROUND:
admitted with fever and given 3L NSS in ER
ASSESSMENT:
alert and talking, no signs of distress
RECOMMENDATION:
Continue hypoglycemic protocol, report given to night RN
--- NOTE | 2025-02-21 20:00 | PTCARENOTE ---
Pt received from [facility]. Pt is AAOx3, very [place] b/l hearing aides being worn by Pt. nsr on monitor. Pt recieved on 2mcg/ min of levo per order to keep >65 MAP. current map 87. NSR on monitor. satting 95% on 4L 02. Pt using urinal to void.
assessment as documented. call light in reach.
[2025-02-21] MEDS: NEURONTIN 300 MG PO (21:10)
[2025-02-21] MEDS: MUCINEX 600 MG PO (21:10)
[2025-02-21] MEDS: ELIQUIS 5 MG PO (21:11)
[2025-02-21] MEDS: CELLCEPT 1000 MG PO (21:11)
[2025-02-21] MEDS: COLACE 100 MG PO (21:11)
[2025-02-21] MEDS: TYLENOL 650 MG PO (21:13)
[2025-02-21] MEDS: ROXICODONE 5 MG PO (21:14)
[2025-02-21 21:17] LABS: Glucose - Point of Care 139 mg/dl (70-99)
[2025-02-21] MEDS: LIPITOR 40 MG PO (22:23)
[2025-02-21] MEDS: ZOLOFT 50 MG PO (22:23)
[2025-02-21 23:08] LABS: Glucose - Point of Care 187 mg/dl (70-99)
[2025-02-22] VITALS (20 sets, daily range): BP systolic 90–153; BP diastolic 44–73
[2025-02-22 03:15] LABS: Glucose - Point of Care 192 mg/dl (70-99)
--- NOTE | 2025-02-22 03:37 | GLUCOSE ---
SITUATION:
follow up of hypoglycemia protocol
BACKGROUND:
pt with BG of 55 @ 17:51 for dayshift RN. report received from dayshift RN reporting to this RN Pts BG was 106 @ 18:57 after following hypoglycemia protocol.
ASSESSMENT:
following the protocol, the Q2 hr glucose checks X2 resulted as:
139 @ 21:06
187 @ 22:57
and 192 @ the 3am check
RECOMMENDATION:
cont with ACHS glucose checks per order
[2025-02-22] MEDS: D5/0.9% SODIUM CHLORIDE 1000 IV ×2 (04:05→17:19)
[2025-02-22 04:43] LABS: Hematocrit 24.7 % (39.0-52.0); Hemoglobin 7.3 g/dL (13.0-18.0); Mean Corp Hgb Conc. 29.6 g/dL (33.0-37.0); Mean Corpuscular Volume 98.8 fL (80.0-94.0); Nucleated Red Blood Cells % 0 % (-); Platelet Count 178 10^3/uL (130-400); Red Cell Dist. Width 16.3 % (11.5-14.5)
[2025-02-22 05:11] LABS: ALT (SGPT) 11 U/L (0-50); AST (SGOT) 15 U/L (17-59); Albumin 2.5 g/dl (3.5-5.0); Alkaline Phosphatase 94 U/L (38-126); Blood Urea Nitrogen 12 mg/dl (9-20); Calcium 7.2 mg/dl (8.4-10.2); Carbon Dioxide 23 mmol/L (22-30); Chloride 114 mmol/L (98-107); Estimated Creatinine Clearance 68 ml/min; Glucose 181 mg/dl (70-99); Potassium 4.3 mmol/L (3.5-5.1); Sodium 140 mmol/L (135-145); Total Protein 4.6 g/dl (6.3-8.2); eGFR > 60.00
[2025-02-22] MEDS: SYNTHROID 100 MCG PO (05:29)
[2025-02-22] MEDS: SOLU-CORTEF 100 MG IV ×2 (05:29→17:19)
--- NOTE | 2025-02-22 07:57 | W.PN.HOSP.TC ---
Today's Communication/Plan
-
see plan
Assessment / Plan
Assessment / Plan
Gen: NAD, Awake and alert
Eyes: EOMI, PERRLA, no scleral icterus.
Neck: supple.
CV: RRR, +S1/S2, no m/r/g.
Resp: CTAB, no rales, wheezes, or rhonchi.
Abd: +BS, soft, NT, ND
Skin: No rashes.
MSK: no tenderness to palpation in lumbar spine. No bony deformities.
Neuro: CN 2-12 intact, non-focal.
Psych: Normal mood and affect.
Septic shock due to persistent UTI:
-Recent UTI with multidrug-resistant Enterobacter
-with acute metabolic encephalopathy
-Immunocompromised due to treatment for interstitial lung disease and rheumatoid arthritis with CellCept/Prednisone
-U/A not particularly impressive for UTI although currently on doxycycline
-CXR with slightly more prominent asymmetric opacities suggestive the left lung base may be related to atelectasis/subtle/early pneumonia. Clinically doubt PNA.
-was on Invanz, now switched back to Doxy by ID
-cont IVFs
-was on Levophed, now off as of 299
-cont stress dose steroids
-follow BCxs/UCx
Other problems:
CAD: cont statin/BB (with holding parameters)
PAF: cont Eliquis
Pulmonary HTN
ILD: remains on Cellcept (will stop with fever and concern for persistent infection), stress dose steroids. 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
Interstitial lung disease
RA: on chronic prednisone
Chronic HFrEF: Jardiance previously stopped due to frequent UTI, home Lasix on hold
Hypothyroidism: cont levothyroxine
Essential HTN: currently hypotensive requiring vasopressors. BB continued with CAD (will place holding parameters).
PAD: cont statin
AAA s/p endograft repair
Chronic anemia: trend Hb (check again this evening with AM Hb 7.3)
DM2 with diabetic neuropathy: SSI/accuchecks, cont neurontin
Anxiety/depression: cont Zoloft
Chronic back pain status post L2 percutaneous vertebroplasty on 01/29/25: cont oxycodone PRN
DNR/DNI/Heparin
Total critical care time spent = 37 min
Anticipated Discharge: 24 - 48 hours
Subjective/Interval History
-
Date of Service: February 22, 2025
No new complaints.
Objective Data
-
Labs:
Laboratory Results
02/22/25
04:16
WBC 4.8
Hgb 7.3 L
Hct 24.7 L
Plt Count 178
Sodium 140
Potassium 4.3
Chloride 114 H
Carbon Dioxide 23
BUN 12
Creatinine 0.9
Glucose 181 H
Calcium 7.2 L
Total Bilirubin 0.4
AST 15 L
ALT 11
Alkaline Phosphatase 94
Vital Signs:
Vital Signs
Temp Pulse Resp BP Pulse Ox
97.5 F 52 10 123/54 99
02/22/25 04:00 02/22/25 07:15 02/22/25 07:15 02/22/25 07:00 02/22/25 07:15
I&O
02/21/25 02/22/25 02/23/25
06:59 06:59 06:59
Intake Total 3450 / 3450
Output Total 1620 / 1620
Balance 1830 / 1830
[2025-02-22 08:00] LABS: Glucose - Point of Care 212 mg/dl (70-99)
--- NOTE | 2025-02-22 08:02 | W.PN.ID1 ---
Date of Service
Date of Service: February 22, 2025
Today's Communication
Transition to doxycycline. See below�
Assessment / Plan
Ongoing/intractable low back pain
- Seems improved today.
Recent Hx MDRO UTI (Enterobacter cloacae)
- On course of antibiotics
Low-grade fever
Normal white count with left shift
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
Neuropathy
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
Hypothyroidism
Hypertension
Paroxysmal atrial fibrillation
Heart failure with reduced EF
CAD
Depression/anxiety
Rheumatoid arthritis on chronic plaquenil, prednisone 17.5 mg/d and Bactrim prophylaxis
CKD 3
Recommendations:
At present, not clear whether symptomatology is secondary to ongoing infection. The patient recently was treated for a multidrug-resistant urinary tract infection and was still on doxycycline therapy.
Patient appears overall improved today. Will place back on prior course of doxycycline with close observation.
Will continue to follow pending cultures.
Further recommendations as additional data is returned.
Chief Complaint
-: UTI and Other (Weakness)
Subjective / Review of Systems
Patient seen and examined. Reports feeling improved today.
Vital Signs / Physical Exam
Vital Signs
Vital Signs
Temp Pulse Resp BP Pulse Ox
97.5 F 52 10 123/54 99
02/22/25 04:00 02/22/25 07:15 02/22/25 07:15 02/22/25 07:00 02/22/25 07:15
Physical Exam
Constitutional: No Acute Distress, Comfortable, Chronically Ill and Non-toxic
Eyes: Sclera Anicteric
Cardiovascular: S1/S2; Negative S3/S4
Pulmonary: Non Labored
Gastrointestinal: Soft, Non Tender and Non Distended
Neurological: Awake and Alert
Psychological: Calm
Objective Data
Lab Data
Lab Results
02/22/25 04:16
02/22/25 04:16
PT 20.6 Sec (11.4-14.6) H 02/21/25 12:20
INR 1.75 02/21/25 12:20
APTT 44.9 Sec (23.4-35.0) H 02/21/25 12:20
Estimated Creat Clear 68 ml/min 02/22/25 04:16
Lactic Acid Cancelled 02/21/25 16:15
Total Bilirubin 0.4 mg/dl (0.2-1.3) 02/22/25 04:16
AST 15 U/L (17-59) L 02/22/25 04:16
ALT 11 U/L (0-50) 02/22/25 04:16
Alkaline Phosphatase 94 U/L (38-126) 02/22/25 04:16
Most recent labs reviewed.
Micro Results:
02/21/25 17:31 MRSA Screen - Pending
Nose
02/21/25 14:38 Blood Culture - Pending
Blood/Venous
02/21/25 13:00 Blood Culture - Pending
Blood/Venous
02/21/25 12:21 Urine Culture - Pending
Urine
Imaging:
02/21/2025 CXR (portable): Slightly prominent markings, as described, felt to be related to technical factors. Mild pulmonary edema would be difficult to exclude with certainty. Slightly more prominent asymmetric opacity suggested at the left lung
base resulting in slight obscuration of left diaphragm. This may be related atelectasis or subtle/early pneumonia.
Chest X-Ray: Image Reviewed and Report Reviewed
[2025-02-22 08:28] LABS: Glycohemoglobin (HgbA1c) 6.3 % (4.0-5.6)
[2025-02-22] MEDS: FLOMAX 0.4 MG PO (08:56)
[2025-02-22] MEDS: ELIQUIS 5 MG PO ×2 (08:58→21:25)
[2025-02-22] MEDS: LIDOCAINE 4% PATCH 1 PATCH TOPICAL (08:59)
[2025-02-22] MEDS: COLACE 100 MG PO ×2 (08:59→21:15)
[2025-02-22] MEDS: MUCINEX 600 MG PO ×2 (09:00→21:16)
[2025-02-22] MEDS: TOPROL XL PO (09:00)
[2025-02-22] MEDS: NEURONTIN 300 MG PO ×2 (09:00→21:16)
[2025-02-22] MEDS: CELLCEPT PO (09:02)
[2025-02-22] MEDS: NOVOLOG FLEXPEN-LOW RESISTANCE 2 UNITS SC (09:08)
[2025-02-22] MEDS: TYLENOL 650 MG PO ×2 (10:13→22:11)
[2025-02-22] MEDS: MIRALAX 17 GRAMS PO (10:13)
[2025-02-22] MEDS: ROXICODONE 5 MG PO ×2 (11:42→22:11)
[2025-02-22] MEDS: METHOCARBAMOL 500 MG PO (11:43)
[2025-02-22 11:50] LABS: Glucose - Point of Care 185 mg/dl (70-99)
--- NOTE | 2025-02-22 12:39 | PTCARENOTE ---
Declined pain meds this am- accepted Tylenol before activity- attempted up to side of bed and unable to stay upright d/t intense 05/06 pain low back. PRN Roxicodone and Methocarbamol given. Currently dozing comfortably.
[2025-02-22] MEDS: NOVOLOG FLEXPEN-LOW RESISTANCE 1 UNITS SC (14:17)
[2025-02-22 16:29] LABS: Glucose - Point of Care 128 mg/dl (70-99)
--- NOTE | 2025-02-22 16:57 | PTCARENOTE ---
AAOx3, OHKAY OWINGEH with hearing aids intact. Weaned off o2 remains 93% on RAIR, home dependant 2L HS noted. Occasional harsh npc. Appetite good, IVF infusing. Accuchecks required coverage. Voiding adequate clear light tea colored. No stool despite
colace and miralax. Denies nausea, discomfort.
[2025-02-22] MEDS: NOVOLOG FLEXPEN-LOW RESISTANCE SC (17:19)
--- NOTE | 2025-02-22 18:02 | PTCARENOTE ---
Requested to get to side of bed for a few minutes- min assist much better than earlier. Sat on side for about 5 min then started having some diff. breathing. POx 92% on RAIR- placed on 1 L for recovery. Stood to readjust sheets and back in bed
min assist. Educated on pain meds- needs prior to therapy.
[2025-02-22 20:19] LABS: Hemoglobin 6.8 g/dL (13.0-18.0)
[2025-02-22] MEDS: LIPITOR 40 MG PO (21:15)
[2025-02-22] MEDS: VIBRAMYCIN 100 MG PO (21:15)
[2025-02-22] MEDS: ZOLOFT 50 MG PO (21:15)
--- NOTE | 2025-02-22 21:30 | PTCARENOTE ---
Report received from previous shift RN [id number]. Pt in bed, AAO3. Pt is NIKOLAI b/l, wearing b/l hearing aids. Pt reports chronic back pain, PRN medications. Shallow respirations, oc moist productive cough (pt reports yellow/green sputum), lung sounds are
decreased throughout with fine crackles in R base, pox 93% on room air (wears 2L O2 HS). Telemetry rhythm reveals SB-SR w prolonged QT, HR 50-60's, no edema, palpable peripheral pulses present. +BS, abdomen soft round obese nontender, tolerating PO
diet, denies N/V/abdominal pain. Voids into urinal at bedside, china urine. Skin as documented. R FA int with IVF per order.
Pt's 1999 Hbg lab results reviewed with [facility] CHUCKING MACHINE SET UP OPERATORRosemarie. CHUCKING MACHINE SET UP OPERATOR to unit, entered additional HH and type & screen. Results reviewed w CHUCKING MACHINE SET UP OPERATOR, will follow.
Call calhoun within reach, safe environment maintained. Will monitor closely.
[2025-02-22 21:51] LABS: Glucose - Point of Care 265 mg/dl (70-99)
[2025-02-22 22:25] LABS: Hematocrit 23.3 % (39.0-52.0); Hemoglobin 7.2 g/dL (13.0-18.0)
[2025-02-23] VITALS (31 sets, daily range): BP systolic 129–193; BP diastolic 57–142; BMI 29.8
[2025-02-23] MEDS: D5/0.9% SODIUM CHLORIDE 1000 IV ×2 (03:28→15:22)
[2025-02-23] MEDS: SOLU-CORTEF 100 MG IV ×2 (05:39→18:06)
[2025-02-23] MEDS: SYNTHROID 100 MCG PO (05:44)
[2025-02-23 06:19] LABS: Hematocrit 21.3 % (39.0-52.0); Hemoglobin 6.4 g/dL (13.0-18.0); Mean Corp Hgb Conc. 30.0 g/dL (33.0-37.0); Mean Corpuscular Volume 96.8 fL (80.0-94.0); Platelet Count 179 10^3/uL (130-400); Red Cell Dist. Width 16.5 % (11.5-14.5)
--- NOTE | 2025-02-23 06:38 | PTCARENOTE ---
Pt's AM CBC results discussed w terry [employer] SE[employer] ENGINEER Rosemarie. [employer] SE[employer] ENGINEER to unit, obtained blood consent and to order blood product.
No s/s bleeding. Pt's VS have been stable throughout night.
--- NOTE | 2025-02-23 06:47 | W.PN.UPDATE ---
Update Note
Progress Note Update
Pt H&H 6.4/.3 this morning no overt s/s of bleeding noted. blood consent signed- risks vs. benefits discussed. pt verbalized understanding. morning Eliquis held.
[2025-02-23 06:52] LABS: Blood Urea Nitrogen 14 mg/dl (9-20); Calcium 6.9 mg/dl (8.4-10.2); Carbon Dioxide 18 mmol/L (22-30); Chloride 117 mmol/L (98-107); Estimated Creatinine Clearance 67 ml/min; Glucose 168 mg/dl (70-99); Potassium 3.4 mmol/L (3.5-5.1); Sodium 139 mmol/L (135-145); eGFR > 60.00
[2025-02-23 08:14] LABS: Glucose - Point of Care 166 mg/dl (70-99)
[2025-02-23] MEDS: NOVOLOG FLEXPEN-LOW RESISTANCE 1 UNITS SC ×2 (08:57→17:59)
[2025-02-23] MEDS: COLACE 100 MG PO ×2 (09:00→20:11)
[2025-02-23] MEDS: NEURONTIN 300 MG PO ×2 (09:00→20:11)
[2025-02-23] MEDS: TOPROL XL 50 MG PO (09:00)
[2025-02-23] MEDS: MIRALAX 17 GRAMS PO (09:00)
[2025-02-23] MEDS: LIDOCAINE 4% PATCH TOPICAL (09:00)
[2025-02-23] MEDS: MUCINEX 600 MG PO ×2 (09:00→20:12)
[2025-02-23] MEDS: FLOMAX 0.4 MG PO (09:00)
[2025-02-23] MEDS: VIBRAMYCIN 100 MG PO ×2 (09:00→20:11)
--- NOTE | 2025-02-23 10:25 | W.PN.ID1 ---
Date of Service
Date of Service: February 23, 2025
Today's Communication
Continue current course of doxycycline.
Assessment / Plan
Ongoing/intractable low back pain
- Seems improved today.
Recent Hx MDRO UTI (Enterobacter cloacae)
- On course of antibiotics
Low-grade fever
- No further fevers following isolated temperature in ER
Normal white count with left shift
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
Neuropathy
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
Hypothyroidism
Hypertension
Paroxysmal atrial fibrillation
Heart failure with reduced EF
CAD
Depression/anxiety
Rheumatoid arthritis on chronic plaquenil, prednisone 17.5 mg/d and Bactrim prophylaxis
CKD 3
Recommendations:
Continue on prior course of doxycycline with close observation.
- Admission blood cultures and urine culture remain negative.
Will continue to follow pending cultures.
����������������������������������������������������������
Chief Complaint
-: UTI and Other (Weakness)
Subjective / Review of Systems
Review of Systems: No Fever and No Chills
Vital Signs / Physical Exam
Vital Signs
Vital Signs
Temp Pulse Resp BP Pulse Ox
97.7 F 54 10 155/63 93
02/23/25 07:15 02/23/25 03:00 02/23/25 03:00 02/23/25 03:00 02/22/25 20:00
Physical Exam
Constitutional: No Acute Distress, Comfortable, Chronically Ill and Non-toxic
Eyes: Sclera Anicteric
Cardiovascular: S1/S2; Negative S3/S4
Pulmonary: Non Labored
Gastrointestinal: Soft, Non Tender and Non Distended
Neurological: Awake and Alert
Psychological: Calm
Objective Data
Lab Data
Lab Results
02/23/25 05:47
02/23/25 05:47
PT 20.6 Sec (11.4-14.6) H 02/21/25 12:20
INR 1.75 02/21/25 12:20
APTT 44.9 Sec (23.4-35.0) H 02/21/25 12:20
Estimated Creat Clear 67 ml/min 02/23/25 05:47
Lactic Acid Cancelled 02/21/25 16:15
Total Bilirubin 0.4 mg/dl (0.2-1.3) 02/22/25 04:16
AST 15 U/L (17-59) L 02/22/25 04:16
ALT 11 U/L (0-50) 02/22/25 04:16
Alkaline Phosphatase 94 U/L (38-126) 02/22/25 04:16
Most recent labs reviewed.
Micro Results:
02/21/25 17:31 MRSA Screen - Final
Nose No Methicillin Resistant Staphylococcus aureus isolated.
02/21/25 14:38 Blood Culture - Preliminary
Blood/Venous No Growth in 24 hours- Final report to follow
02/21/25 13:00 Blood Culture - Preliminary
Blood/Venous No Growth in 24 hours- Final report to follow
02/21/25 12:21 Urine Culture - Final
Urine NO GROWTH
Imaging:
02/21/2025 CXR (portable): Slightly prominent markings, as described, felt to be related to technical factors. Mild pulmonary edema would be difficult to exclude with certainty. Slightly more prominent asymmetric opacity suggested at the left lung
base resulting in slight obscuration of left diaphragm. This may be related atelectasis or subtle/early pneumonia.
[2025-02-23 12:46] LABS: Glucose - Point of Care 135 mg/dl (70-99)
--- NOTE | 2025-02-23 12:46 | CM ---
Patient from [facility] with Hx Chronic back pain status post L2 percutaneous vertebroplasty with Dx Sepsis due to persistent UTI. Room air. Receiving IVF, PO Abx, Solucortef, Roxicodone prn. Per nurse; forgetful, assist of 1,
sat on side of bed.
Met with patient who was extremely APACHE and difficult to hold conversation with.
Spoke with patient's son Law;
the patient resides at [facility] in the Personal Care Unit.
Per son, patient was independent in ADLs and ambulation until about a month ago. He then went to SNF after admission in December which was not helpful to improve his mobility, and fell while there. After most recent admit in January the patient went home
with for SN/PT/OT but was not seen by therapy before readmitted here again.
Law states that his father was not given any assistance with his ADLs at [facility] and son was having to go there and assist patient with bathing/dressing. For the past few days he has been unable to get OOB.
Was using RW for ambulation until recently, and mobility scooter for longer distances.
DME - hearing aides, RW, shower chair, mobility scooter, home O2 concentrator/portable (patient not using)
Current with [facility]
Recent [facility] - bad experience per son and will not return there
PCP- Jaylin Holguin
Pharmacy - [facility]
Son asking if patient could go to rehab at discharge and asking for [facility]. Explained levels of care for acute rehab vs SNF and that outcome of therapy evals will help determine rehab needs. Son feels patient cannot return to [facility] at this
time, until his mobility improves.
Message to Dr Lawrence requesting PT/OT Evals.
Plan follow up after seen by PT/OT.
[2025-02-23] MEDS: NOVOLOG FLEXPEN-LOW RESISTANCE SC (13:05)
--- NOTE | 2025-02-23 14:00 | PTCARENOTE ---
Transfused one unit PRBC's without incident. All VS stable(see work list). Patient using urinal independently. No BM today. Appetite good. Call calhoun in reach.
--- NOTE | 2025-02-23 15:12 | W.PN.HOSP.TC ---
Today's Communication/Plan
-
Assessment / Plan
Assessment / Plan
Gen: NAD, Awake and alert
Eyes: EOMI, PERRLA, no scleral icterus.
Neck: supple.
CV: RRR, +S1/S2, no m/r/g.
Resp: CTAB, no rales, wheezes, or rhonchi.
Abd: +BS, soft, NT, ND
Skin: No rashes.
MSK: no tenderness to palpation in lumbar spine. No bony deformities.
Neuro: CN 2-12 intact, non-focal.
Psych: Normal mood and affect.
Septic shock due to persistent UTI:
-Recent UTI with multidrug-resistant Enterobacter
-with acute metabolic encephalopathy
-Immunocompromised due to treatment for interstitial lung disease and rheumatoid arthritis with CellCept/Prednisone
-U/A not particularly impressive for UTI although currently on doxycycline
-CXR with slightly more prominent asymmetric opacities suggestive the left lung base may be related to atelectasis/subtle/early pneumonia. Clinically doubt PNA.
-was on Invanz, now switched back to Doxy by ID
-cont IVFs
-was on Levophed, now off as of 299
-cont stress dose steroids
-follow BCxs/UCx
Anemia
Will give additional 1 unit PRBCs
Without evidence of bleeding
Hemodynamically stable
Other problems:
CAD: cont statin/BB (with holding parameters)
PAF: cont Eliquis
Pulmonary HTN
ILD: remains on Cellcept (will stop with fever and concern for persistent infection), stress dose steroids. 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
Interstitial lung disease
RA: on chronic prednisone
Chronic HFrEF: Jardiance previously stopped due to frequent UTI, home Lasix on hold
Hypothyroidism: cont levothyroxine
Essential HTN: currently hypotensive requiring vasopressors. BB continued with CAD (will place holding parameters).
PAD: cont statin
AAA s/p endograft repair
Chronic anemia: trend Hb (check again this evening with AM Hb 7.3)
DM2 with diabetic neuropathy: SSI/accuchecks, cont neurontin
Anxiety/depression: cont Zoloft
Chronic back pain status post L2 percutaneous vertebroplasty on 01/29/25: cont oxycodone PRN
DNR/DNI/Heparin
Anticipated Discharge: 24 - 48 hours
Subjective/Interval History
-
Date of Service: February 23, 2025
Seen and examined. No new complaints. No acute overnight events.
Objective Data
-
Labs:
Laboratory Results
02/23/25
05:47
WBC 4.2 L
Hgb 6.4 L*
Hct 21.3 L
Plt Count 179
Sodium 139
Potassium 3.4 L
Chloride 117 H
Carbon Dioxide 18 L
BUN 14
Creatinine 0.8
Glucose 168 H
Calcium 6.9 L*
Vital Signs:
Vital Signs
Temp Pulse Resp BP Pulse Ox
97.9 F 55 18 183/83 94
02/23/25 13:14 02/23/25 13:14 02/23/25 13:14 02/23/25 13:14 02/23/25 13:12
I&O
02/22/25 02/23/25 02/24/25
06:59 06:59 06:59
Intake Total 3450 / 3450 2220 / 2220 490 / 490
Output Total 1620 / 1620 750 / 750
Balance 1830 / 1830 1470 / 1470 490 / 490
[2025-02-23] MEDS: TYLENOL 650 MG PO ×2 (15:25→23:16)
[2025-02-23 18:11] LABS: Glucose - Point of Care 188 mg/dl (70-99)
[2025-02-23] MEDS: ELIQUIS 5 MG PO (20:11)
--- NOTE | 2025-02-23 21:20 | PTCARENOTE ---
Pt received from previous RN. Pt is AAOx3. NSR on monitor, HR 60-70 bpm. . Assessment as documented. Pt assisted with HS oral care. call light in reach.
[2025-02-23 21:30] LABS: Glucose - Point of Care 170 mg/dl (70-99)
[2025-02-23] MEDS: ANESTHETIC LOZENGE 1 LOZENGE PO (22:18)
[2025-02-23] MEDS: LIPITOR 40 MG PO (22:18)
[2025-02-23] MEDS: TESSALON PERLES 100 MG PO (22:18)
[2025-02-23] MEDS: TUMS CHEWABLE TABLET 200 MG PO (22:18)
[2025-02-23] MEDS: ZOLOFT 50 MG PO (22:18)
[2025-02-23] MEDS: ROXICODONE 5 MG PO (23:16)
[2025-02-24] VITALS (18 sets, daily range): BP systolic 105–185; BP diastolic 59–91; PULSE 54–71; BMI 30.3
[2025-02-24] MEDS: SYNTHROID 100 MCG PO (04:54)
[2025-02-24 05:02] LABS: Blood Urea Nitrogen 15 mg/dl (9-20); Calcium 7.8 mg/dl (8.4-10.2); Carbon Dioxide 21 mmol/L (22-30); Chloride 117 mmol/L (98-107); Estimated Creatinine Clearance 86 ml/min; Glucose 161 mg/dl (70-99); Potassium 3.8 mmol/L (3.5-5.1); Sodium 140 mmol/L (135-145); eGFR > 60.00
[2025-02-24 05:03] LABS: Hematocrit 26.0 % (39.0-52.0); Hemoglobin 8.1 g/dL (13.0-18.0); Mean Corp Hgb Conc. 31.2 g/dL (33.0-37.0); Mean Corpuscular Volume 94.9 fL (80.0-94.0); Platelet Count 189 10^3/uL (130-400); Red Cell Dist. Width 18.4 % (11.5-14.5)
--- NOTE | 2025-02-24 08:24 | W.PN.ID1 ---
Date of Service
Date of Service: February 24, 2025
Today's Communication
Continue current course of doxycycline through 03/01/2025
Assessment / Plan
Ongoing/intractable low back pain
- Seems improved today.
Recent Hx MDRO UTI (Enterobacter cloacae)
- On course of antibiotics
Low-grade fever
- No further fevers following isolated temperature in ER
Normal white count with left shift
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
Neuropathy
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
Hypothyroidism
Hypertension
Paroxysmal atrial fibrillation
Heart failure with reduced EF
CAD
Depression/anxiety
Rheumatoid arthritis on chronic plaquenil, prednisone 17.5 mg/d and Bactrim prophylaxis
CKD 3
Recommendations:
Patient overall clinically improved. No evidence of acute infectious process.
Admission blood cultures and urine culture negative.
Continue on prior course of doxycycline through 03/01/2025
Will see again at your request. Please call with any questions.
����������������������������������������������������������
Chief Complaint
-: UTI and Other (Weakness)
Subjective / Review of Systems
Patient seen and examined. Still feels weak to some degree. No fevers or chills. Back pain controlled.
Review of Systems: No Fever and No Chills
Vital Signs / Physical Exam
Vital Signs
Vital Signs
Temp Pulse Resp BP Pulse Ox
98.0 F 50 13 171/77 92
02/24/25 03:19 02/24/25 06:00 02/24/25 06:00 02/24/25 06:00 02/24/25 04:56
Physical Exam
Constitutional: No Acute Distress, Comfortable, Chronically Ill and Non-toxic
Eyes: Sclera Anicteric
Cardiovascular: S1/S2; Negative S3/S4
Pulmonary: Non Labored
Gastrointestinal: Soft, Non Tender and Non Distended
Neurological: Awake and Alert
Psychological: Calm
Objective Data
Lab Data
Lab Results
02/24/25 04:27
02/24/25 04:27
PT 20.6 Sec (11.4-14.6) H 02/21/25 12:20
INR 1.75 02/21/25 12:20
APTT 44.9 Sec (23.4-35.0) H 02/21/25 12:20
Estimated Creat Clear 86 ml/min 02/24/25 04:27
Lactic Acid Cancelled 02/21/25 16:15
Total Bilirubin 0.4 mg/dl (0.2-1.3) 02/22/25 04:16
AST 15 U/L (17-59) L 02/22/25 04:16
ALT 11 U/L (0-50) 02/22/25 04:16
Alkaline Phosphatase 94 U/L (38-126) 02/22/25 04:16
Most recent labs reviewed.
Micro Results:
02/21/25 14:38 Blood Culture - Preliminary
Blood/Venous No Growth in 48 hours- Final report to follow
02/21/25 13:00 Blood Culture - Preliminary
Blood/Venous No Growth in 48 hours- Final report to follow
02/21/25 17:31 MRSA Screen - Final
Nose No Methicillin Resistant Staphylococcus aureus isolated.
02/21/25 12:21 Urine Culture - Final
Urine NO GROWTH
Imaging:
02/21/2025 CXR (portable): Slightly prominent markings, as described, felt to be related to technical factors. Mild pulmonary edema would be difficult to exclude with certainty. Slightly more prominent asymmetric opacity suggested at the left lung
base resulting in slight obscuration of left diaphragm. This may be related atelectasis or subtle/early pneumonia.
[2025-02-24 08:27] LABS: Glucose - Point of Care 105 mg/dl (70-99)
[2025-02-24] MEDS: NOVOLOG FLEXPEN-LOW RESISTANCE SC ×3 (08:28→18:38)
[2025-02-24] MEDS: MIRALAX 17 GRAMS PO (08:54)
[2025-02-24] MEDS: DELTASONE 30 MG PO (08:54)
[2025-02-24] MEDS: VIBRAMYCIN 100 MG PO ×2 (08:54→19:43)
[2025-02-24] MEDS: NEURONTIN 300 MG PO ×2 (08:55→19:43)
[2025-02-24] MEDS: ELIQUIS 5 MG PO ×2 (08:55→19:43)
[2025-02-24] MEDS: COLACE 100 MG PO ×2 (08:55→19:43)
[2025-02-24] MEDS: TOPROL XL 50 MG PO (08:56)
[2025-02-24] MEDS: MUCINEX 600 MG PO ×2 (08:56→19:43)
[2025-02-24] MEDS: FLOMAX 0.4 MG PO (08:56)
[2025-02-24] MEDS: LIDOCAINE 4% PATCH TOPICAL (08:56)
[2025-02-24 12:25] LABS: Glucose - Point of Care 141 mg/dl (70-99)
--- NOTE | 2025-02-24 17:02 | W.PN.HOSP.TC ---
Today's Communication/Plan
-
Dispo planning
PT/OT rec SNF
CM consulted
Son Law updated about disposition and agrees with plan
Assessment / Plan
Assessment / Plan
Gen: NAD, Awake and alert
Eyes: EOMI, PERRLA, no scleral icterus.
Neck: supple.
CV: RRR, +S1/S2, no m/r/g.
Resp: CTAB, no rales, wheezes, or rhonchi.
Abd: +BS, soft, NT, ND
Skin: No rashes.
MSK: no tenderness to palpation in lumbar spine. No bony deformities.
Neuro: CN 2-12 intact, non-focal.
Psych: Normal mood and affect.
Septic shock resolved
UTI with MDR of Enterobacter Cloacae
-Per ID continue doxycycline until 03/01
-Begin tapering stress dose steroids, start her oral 30 mg prednisone today we will taper every other day to home dose of 17.5 mg daily
-Blood culture urine culture no growth
Anemia
Hemoglobin stable 8.1
Without evidence of bleeding
Hemodynamically stable
Other problems:
CAD: cont statin/BB (with holding parameters)
PAF: cont Eliquis
Pulmonary HTN
ILD: remains on Cellcept (will stop with fever and concern for persistent infection), stress dose steroids. 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
Interstitial lung disease
RA: on chronic prednisone
Chronic HFrEF: Jardiance previously stopped due to frequent UTI, home Lasix on hold
Hypothyroidism: cont levothyroxine
Essential HTN: currently hypotensive requiring vasopressors. BB continued with CAD (will place holding parameters).
PAD: cont statin
AAA s/p endograft repair
Chronic anemia: trend Hb (check again this evening with AM Hb 7.3)
DM2 with diabetic neuropathy: SSI/accuchecks, cont neurontin
Anxiety/depression: cont Zoloft
Chronic back pain status post L2 percutaneous vertebroplasty on 01/29/25: cont oxycodone PRN
DNR/DNI/Heparin
Anticipated Discharge: 24 - 48 hours
Subjective/Interval History
-
Date of Service: February 24, 2025
Seen and examined. No new complaints. No acute overnight events.
Evaluated him while he was working with physical therapy. He required significant assistance as he was using a walker in both physical therapist to help get him into the chair he was shaky with even using the walker with the to assist and required
additional help from myself to get him safely in the chair.
Objective Data
-
Labs:
Laboratory Results
02/24/25
04:27
WBC 5.8
Hgb 8.1 L D
Hct 26.0 L
Plt Count 189
Sodium 140
Potassium 3.8
Chloride 117 H
Carbon Dioxide 21 L
BUN 15
Creatinine 0.7
Glucose 161 H
Calcium 7.8 L
Vital Signs:
Vital Signs
Temp Pulse Resp BP Pulse Ox
98.6 F 54 14 169/69 95
02/24/25 11:15 02/24/25 10:00 02/24/25 10:00 02/24/25 10:00 02/24/25 11:06
I&O
02/23/25 02/24/25 02/25/25
06:59 06:59 06:59
Intake Total 2220 / 2220 2415 / 2415 360 / 360
Output Total 750 / 750 930 / 930 240 / 240
Balance 1470 / 1470 1485 / 1485 120 / 120
[2025-02-24 18:24] LABS: Glucose - Point of Care 140 mg/dl (70-99)
--- NOTE | 2025-02-24 20:49 | PTCARENOTE ---
Report received from [facility]. Pt is AAOx3. making needs known. NSR on monitor, HR 65-70 bpm. Pt ate 75% of dinner. HS hygiene offered, Pt declining at this time. took hs pills whole with water. using urinal independently. 01/03 chronic back pain,
pt requesting to hold off on pains Meds at this time assessment as documented. call light in reach.
[2025-02-24] MEDS: LIPITOR 40 MG PO (21:16)
[2025-02-24] MEDS: ZOLOFT 50 MG PO (21:16)
[2025-02-24] MEDS: TYLENOL 650 MG PO (21:49)
[2025-02-24] MEDS: ROXICODONE 5 MG PO (21:50)
[2025-02-24 22:32] LABS: Glucose - Point of Care 163 mg/dl (70-99)
[2025-02-25] VITALS (13 sets, daily range): BP systolic 120–173; BP diastolic 53–88; PULSE 56–58; O2SAT 92; BMI 29.5
[2025-02-25] MEDS: SYNTHROID 100 MCG PO (04:34)
[2025-02-25 09:16] LABS: Glucose - Point of Care 94 mg/dl (70-99)
[2025-02-25] MEDS: MIRALAX 17 GRAMS PO (09:31)
[2025-02-25] MEDS: COLACE 100 MG PO (09:31)
[2025-02-25] MEDS: NOVOLOG FLEXPEN-LOW RESISTANCE SC ×2 (09:31→12:59)
[2025-02-25] MEDS: MUCINEX 600 MG PO (09:31)
[2025-02-25] MEDS: DELTASONE 30 MG PO (09:31)
[2025-02-25] MEDS: FLOMAX 0.4 MG PO (09:32)
[2025-02-25] MEDS: VIBRAMYCIN 100 MG PO (09:32)
[2025-02-25] MEDS: NEURONTIN 300 MG PO (09:32)
[2025-02-25] MEDS: ELIQUIS 5 MG PO (09:32)
[2025-02-25] MEDS: TOPROL XL PO (09:33)
[2025-02-25] MEDS: LIDOCAINE 4% PATCH TOPICAL (09:33)
--- NOTE | 2025-02-25 12:22 | CM ---
Addendum entered by Bambi Lucas RN 02/25/25 15:34:
Covid test pending.
Spoke with Erica G[facility]; they are able to accept the patient today. They require Covid test result before d/c. The for report [phone], fax [phone].
Met with patient and spoke with son Law by phone; both agree to [facility] today by ambulance. IMM completed.
Plan [facility] today by ambulance.
Original Note:
Patient from [facility] with Hx Chronic back pain status post L2 percutaneous vertebroplasty with Dx Sepsis, UTI, anemia. Room air. PT/OT recommend skilled rehab.
Met with patient and spoke with son Law by phone; son initially interested in [facility] however understands that Dr Lawrence feels he would not be able to tolerate 3 hrs therapy/day. Discussed local SNF options and provided [facility] ratings; son chooses
[facility] and [facility]. He plans on doing a tour of [facility] today. Confirmed with son he is only interested in short term rehab.
Phone call to Erica Goff [facility]; left message re; SNF referral for STR.
Plan follow up SNF referrals.
[2025-02-25 12:53] LABS: Glucose - Point of Care 129 mg/dl (70-99)
--- NOTE | 2025-02-25 13:58 | W.PN.HOSP.TC ---
Today's Communication/Plan
-
Assessment / Plan
Assessment / Plan
Gen: NAD, Awake and alert
Eyes: EOMI, PERRLA, no scleral icterus.
Neck: supple.
CV: RRR, +S1/S2, no m/r/g.
Resp: CTAB, no rales, wheezes, or rhonchi.
Abd: +BS, soft, NT, ND
Skin: No rashes.
MSK: no tenderness to palpation in lumbar spine. No bony deformities.
Neuro: CN 2-12 intact, non-focal.
Psych: Normal mood and affect.
Septic shock resolved
UTI with MDR of Enterobacter Cloacae
-Per ID continue doxycycline until 03/01
-Begin tapering stress dose steroids, start her oral 30 mg prednisone today we will taper every other day to home dose of 17.5 mg daily
-Blood culture urine culture no growth
Anemia
Hemoglobin stable 8.1
Without evidence of bleeding
Hemodynamically stable
Other problems:
CAD: cont statin/BB (with holding parameters)
PAF: cont Eliquis
Pulmonary HTN
ILD: remains on Cellcept (will stop with fever and concern for persistent infection), stress dose steroids. 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
Interstitial lung disease
RA: on chronic prednisone
Chronic HFrEF: Jardiance previously stopped due to frequent UTI, home Lasix on hold
Hypothyroidism: cont levothyroxine
Essential HTN: currently hypotensive requiring vasopressors. BB continued with CAD (will place holding parameters).
PAD: cont statin
AAA s/p endograft repair
Chronic anemia: trend Hb (check again this evening with AM Hb 7.3)
DM2 with diabetic neuropathy: SSI/accuchecks, cont neurontin
Anxiety/depression: cont Zoloft
Chronic back pain status post L2 percutaneous vertebroplasty on 01/29/25: cont oxycodone PRN
DNR/DNI/Heparin
For SNF
Anticipated Discharge: Today
Subjective/Interval History
-
Date of Service: February 25, 2025
seen and exained. no new compalitns. no acute ovenright evetns
Objective Data
-
Vital Signs:
Vital Signs
Temp Pulse Resp BP Pulse Ox
98.3 F 58 18 173/88 92
02/25/25 11:05 02/25/25 12:00 02/25/25 12:00 02/25/25 12:00 02/25/25 11:56
I&O
02/24/25 02/25/25 02/26/25
06:59 06:59 06:59
Intake Total 2415 / 2415 360 / 360
Output Total 930 / 930 240 / 240 200 / 200
Balance 1485 / 1485 120 / 120 -200 / -200
[2025-02-25 16:36] LABS: COVID-19 Antigen Negative (Negative)
[2025-02-25 18:01] LABS: Glucose - Point of Care 180 mg/dl (70-99)
[2025-02-25] MEDS: NOVOLOG FLEXPEN-LOW RESISTANCE 1 UNITS SC (18:16)
== END 2025-02-25 09:00 | DRG 871 ==
LOC: IMU 14:30
PROVIDERS: Internal Medicine; Nurse Practitioner Gerontology; Physician Assistant Medical; ADMITTING PHYSICIAN Hospitalist; ATTENDING PHYSICIAN Hospitalist; CONSULT PHYSICIAN Internal Medicine Infectious Disease; EMERGENCY PHYSICIAN Student in an Organized Health Care Education/Training Program; FAMILY PHYSICIAN Nurse Practitioner
DX: A41.9 Sepsis, unspecified organism (principal); R65.21 Severe sepsis with septic shock; N39.0 Urinary tract infection, site not specified; I13.0 Hypertensive heart and chronic kidney disease with heart failure and stage 1 through stage 4 chronic kidney disease, or unspecified chronic kidney disease; I50.22 Chronic systolic (congestive) heart failure; J84.9 Interstitial pulmonary disease, unspecified; J96.11 Chronic respiratory failure with hypoxia; Z16.24 Resistance to multiple antibiotics; D84.821 Immunodeficiency due to drugs; B96.89 Other specified bacterial agents as the cause of diseases classified elsewhere; I25.10 Atherosclerotic heart disease of native coronary artery without angina pectoris; N18.30 Chronic kidney disease, stage 3 unspecified; E11.22 Type 2 diabetes mellitus with diabetic chronic kidney disease; D64.9 Anemia, unspecified; I48.0 Paroxysmal atrial fibrillation; M06.9 Rheumatoid arthritis, unspecified; Z79.52 Long term (current) use of systemic steroids; E03.9 Hypothyroidism, unspecified; I95.89 Other hypotension; E11.40 Type 2 diabetes mellitus with diabetic neuropathy, unspecified; F41.9 Anxiety disorder, unspecified; F32.A Depression, unspecified; G89.29 Other chronic pain; Z66 Do not resuscitate; Z96.651 Presence of right artificial knee joint; Z87.891 Personal history of nicotine dependence; Z79.01 Long term (current) use of anticoagulants; Z79.890 Hormone replacement therapy; Z79.891 Long term (current) use of opiate analgesic; E78.00 Pure hypercholesterolemia, unspecified; H91.90 Unspecified hearing loss, unspecified ear; I27.20 Pulmonary hypertension, unspecified; J44.9 Chronic obstructive pulmonary disease, unspecified; R32 Unspecified urinary incontinence; Z86.73 Personal history of transient ischemic attack (TIA), and cerebral infarction without residual deficits; Z86.79 Personal history of other diseases of the circulatory system; Z87.440 Personal history of urinary (tract) infections
CPT/HCPCS: 71045; 80048; 80053; 81003; 81015; 82550; 82962; 83036; 83605; 83735; 84443; 85014; 85018; 85025; 85027; 85610; 85730; 86850; 86900; 86901; 86920; 87040; 87070; 87086; 87811; 93005; 96361; 96365; 96367; 97163; 97167; 97530; 99285; J1335; P9016

== ENCOUNTER 2025-03-19 13:22 | Emergency (ER) | payer MEDICARE, OTHER, SELFPAY ==
[2025-03-19 13:32] VITALS: BP 102/61
[2025-03-19 14:09] LABS: Hematocrit 38.8 % (39.0-52.0); Hemoglobin 11.4 g/dL (13.0-18.0); Mean Corp Hgb Conc. 29.4 g/dL (33.0-37.0); Mean Corpuscular Volume 98.0 fL (80.0-94.0); Nucleated Red Blood Cells % 0 % (-); Platelet Count 193 10^3/uL (130-400); Red Cell Dist. Width 18.0 % (11.5-14.5)
[2025-03-19 14:21] LABS: ALT (SGPT) 21 U/L (0-50); AST (SGOT) 26 U/L (17-59); Albumin 3.9 g/dl (3.5-5.0); Alkaline Phosphatase 150 U/L (38-126); Blood Urea Nitrogen 20 mg/dl (9-20); Calcium 8.6 mg/dl (8.4-10.2); Carbon Dioxide 24 mmol/L (22-30); Chloride 105 mmol/L (98-107); Glucose 172 mg/dl (70-99); Potassium 4.6 mmol/L (3.5-5.1); Sodium 137 mmol/L (135-145); Total Protein 6.2 g/dl (6.3-8.2); eGFR 58.53
--- NOTE | 2025-03-19 15:01 | ED.GENMED ---
History of Present Illness
General
Chief Complaint: Urinary Symptoms
Source: patient, records and family
Exam Limitations: none
Time Seen by Provider: 03/19/25 14:33
History of Present Illness
History of Present Illness:
89yoM with a history of interstitial lung disease on Cellcept, coronary artery disease, atrial fibrillation on Eliquis, rheumatoid arthritis on chronic prednisone, peripheral artery disease, CHF, type 2 diabetes, hypertension, hyperlipidemia, AAA
s/p repair, hypothyroidism, and chronic back pain with recent vertebroplasty in January on oxycodone presenting via EMS for concern for possible UTI. Patient has had multiple recent admissions for urinary tract infections. He just got out of short
term rehab and is now back at [facility]. He was trying to get on a scale this afternoon but he was unable to due to his legs feels weak. He was lowered to the ground and he is adamant that he did not fall. Son states that weakness has been his
first symptom with his prior infections so he wanted the patient evaluated. Patient does admit to losing a lot of muscle mass in his lower extremities due to his low back issues and PAD. Patient currently reports left lower back pain which is
chronic and no worse today. He also has some pressure in his urinary tract which has been present for at least 1.5 months and is also not any worse today. He denies any fevers, chills, body aches, chest pain, shortness of breath, vomiting, dysuria,
hematuria.
Patient was admitted from 02/13/25-02/19/25 for sepsis secondary to a UTI. Urine culture grew out MDRO Enterobacter. He was readmitted from 02/21/25-02/25/25 for recurrent fever. Last urine culture on 02/21/25 came back negative for growth.
Past History
Past History
ED Past Medical History: Arrthythmia, CHF, COPD, CVA, HTN, Hypercholesterolemia, NIDDM, Other (Interstitial lung disease) and Other (AAA)
ED Past Surgical History: Orthopedic (Right knee replacement, kyphoplasty) and Other (Left carotid endarterectomy, aortic aneurysm repair)
Social History
Tobacco: Non-smoker
Alcohol: None
Drug: None
Personal:
Living: assisted living
Phy Exam
General Physical Exam
General Presentation: well appearing and no apparent distress
General Skin: warm and dry
General Habitus: elderly
General Mental: alert
ENT Exam
ENT Exam: normocephalic
Cardiovascular Exam
Cardiovascular Exam: regular rate/rhythm and normal peripheral pulses (2+ DP pulses bilaterally.)
Pulmonary Exam
Pulmonary Exam: lungs clear, no respiratory distress, no rales, no crackles, no rhonchi and no wheezing
Gastrointestinal Exam
Gastrointestinal Exam: non tender, soft, non distended, no cva tenderness and other (Abdomen soft, non-distended, non-tender. No CVA tenderness.)
Neurological Exam
Neurological Exam: alert
[place] Coma Scale
Eye Opening: Spontaneous
Verbal Response: Oriented
Motor Response: Obeys Commands
GCS Total Score: 15
Musculoskeletal Exam
Musculoskeletal Exam: other (+Tenderness in L SI joint region. No skin changes. )
Skin Exam
Skin Exam: normal color and warm/dry
Psychiatric Exam
Psychiatric Exam: normal mood/affect
Course
Orders/Labs/Results
Orders:
Orders
03/19/25 13:57
Complete Blood Count/With Diff Urgent
Comprehensive Metabolic Panel Urgent
Blood Culture Q20M
KIKA Source: Blood/Venous
Specimen Description:
Comment: Urgent from separate sites. If patient screens positive for possible sepsis
03/19/25 15:00
CR Lumbar Spine Comp Min 4 Vw* Urgent
Comment:
Reason For Exam: low back pain
03/19/25 15:02
Bladder Scan- Treatment ONCE
03/19/25 15:58
Blood Culture Q20M
KIKA Source: Blood/Venous
Specimen Description:
Comment: Urgent from separate sites. If patient screens positive for possible sepsis
03/19/25 16:56
Urinalysis Reflex To Culture Urgent
Date Specimen was Collected: 03/19/25
Time Specimen was Collected: 13:38
03/19/25 16:59
Oxycodone [Roxicodone] 10 mg PO NOW STA
Abnormal Lab Results
03/19/25 03/19/25
13:57 16:56
RBC 3.96 L 10^6/uL
(4.70-6.10)
Hgb 11.4 L g/dL
(13.0-18.0)
Hct 38.8 L %
(39.0-52.0)
MCV 98.0 H fL
(80.0-94.0)
MCHC 29.4 L g/dL
(33.0-37.0)
RDW 18.0 H %
(11.5-14.5)
Abs Immat Gran (auto) 0.1 H 10^3/uL
(0-0.05)
Absolute Neuts (auto) 9.2 H 10^3/uL
(1.4-6.5)
Absolute Lymphs (auto) 0.6 L 10^3/uL
(1.2-3.4)
Neutrophils % 89.9 H %
(42.2-75.2)
Lymphocytes % 5.6 L %
(20.5-51.1)
Glucose 172 H mg/dl
(70-99)
Alkaline Phosphatase 150 H U/L
(38-126)
Total Protein 6.2 L g/dl
(6.3-8.2)
Urine Glucose 4+ A
(Negative)
03/19/25 13:57
03/19/25 13:57
Vital Signs
Initial and Last Documented VS:
Initial Vital Signs
Temp Pulse Resp BP Pulse Ox
98.6 F 79 16 102/61 92
03/19/25 13:32 03/19/25 13:32 03/19/25 13:32 03/19/25 13:32 03/19/25 13:32
Last Documented Vital Signs
Temp Pulse Resp BP Pulse Ox
98.6 F 57 28 126/71 95
03/19/25 13:32 03/19/25 17:45 03/19/25 17:45 03/19/25 16:00 03/19/25 16:15
MDM/Problems Addressed
Differential Diagnosis Includes:
89yoM here after he was lowered to the ground due to leg weakness. Son worried about a UTI. Pt denies fevers/chills and only c/o low back pain which is chronic in nature. VSS. He is well appearing in no distress. No CVA tenderness on exam.
Differential diagnosis includes but is not limited to: UTI, chronic low back pain, physical deconditioning
Initial ED plan: Labs obtained in triage. White count is normal. Hemoglobin is improved compared to prior labs. Creatinine 1.2. Blood culture sent and pending. Will check bladder scan, UA, and lumbar spine x-rays.
*Pulse Oximetry
SaO2: 92
Oxygen Mode of Delivery: Room air
Patient hypoxic: no (95%)
*Critical Care Note
Total Time (30-74mins, 75-104mins- exclusive of procedures): Not Applicable
Update Note
Update Note:
No signs of infection on urinalysis. Leukocytes and nitrites are negative. Lumbar spine x-rays show a mild L1 compression fracture which is new from prior imaging and is likely acute/subacute. Vital stable throughout ED stay. No indication for
hospitalization. Both patient and son are comfortable with patient going back to [facility]. ED return precautions reviewed. Patient discharged in stable condition.
ED Attending Note
-
Portions of this chart may have been created with voice recognition software.� Occasional wrong word or��sound alike� substitutions may have occurred due to the inherent limitations of voice recognition software.
Discharge Plan
Departure
Patient Disposition: Home (Routine Discharge)
Date of Disposition: 03/19/25
Time of Disposition: 17:32
Patient with high blood pressure during this ER visit?: No
Discharge Problem:
Low back pain, Closed compression fracture of L1 vertebra
Instructions: Back Pain
Prescriptions:
No Action
sulfamethoxazole-trimethoprim 800-160 mg Tablet
1 tab PO MOWEFR
mycophenolate mofetil 500 mg Tablet
1,000 mg PO BID
Eliquis 5 mg tablet
5 mg PO BID
gabapentin 300 mg Capsule
300 mg PO BID
acetaminophen 325 mg tablet
650 mg PO Q4HPRN PRN (Reason: mild pain/fever)
guaifenesin 600 mg tablet extended release 12hr
600 mg PO Q12H
levothyroxine [Synthroid] 100 mcg Tablet
100 mcg PO DAILY
metoprolol succinate 50 mg tablet extended release 24 hr
50 mg PO DAILY
sitagliptin 100 mg Tablet
100 mg PO DAILY
furosemide [Lasix] 40 mg Tablet
40 mg PO DAILY
benzonatate 100 mg Capsule
100 mg PO Q8HPRN PRN (Reason: cough)
docusate sodium [Colace] 100 mg Capsule
100 mg PO BID Qty: 0 0RF
atorvastatin 40 mg Tablet
40 mg PO HS
methocarbamol 500 mg Tablet
500 mg PO Q6HPRN PRN (Reason: muscle spasms)
ondansetron HCl 4 mg Tablet
4 mg PO Q6HPRN PRN (Reason: nausea/vomiting)
sertraline 50 mg Tablet
50 mg PO HS
zinc oxide 13 % Cream
1 applic TOPICAL BID
Zdboyqumhwa-Fvkkp-NGQ Complex 950-102-75-0.5 mg Tablet
1 tab PO DAILY
lidocaine 4 % adhesive patch,medicated
1 patch topical DAILY
Rx Instructions:
lower back
tamsulosin 0.4 mg capsule
0.4 mg PO DAILY
oxycodone 5 mg Tablet
5 mg PO Q6HPRN PRN (Reason: moderate pain)
saxagliptin 5 mg Tablet
5 mg PO DAILY
empagliflozin 25 mg Tablet
12.5 mg PO DAILY
oxycodone 10 mg tablet
10 mg PO TIDPRN PRN (Reason: severe pain)
doxycycline hyclate 100 mg capsule
100 mg PO Q12
doxycycline hyclate 100 mg Capsule
100 mg PO Q12 Qty: 6 0RF
prednisone 20 mg tablet
20 mg PO DAILY Qty: 2 0RF
prednisone 5 mg Tablet
17.5 mg PO DAILY Qty: 0 0RF
Rx Instructions:
start on 03/01/2025
Referrals:
Monica Baca CRNP [Family Provider, General]
Activity Restrictions/Additional Instructions:
There was no evidence of a urinary tract infection on today's urine test. We will call you if the blood cultures come back positive.
Continue taking oxycodone for your back pain.
Please follow-up with your family doctor. Return to the ER with any new or worsening symptoms including fevers.
Interventions
Interventions:
*Risk Screen - Suicide Last Done: 03/19/25 13:32
*General Assessment Last Done: 03/19/25 16:00
*Neglect/Abuse Screening Last Done: 03/19/25 13:32
*ED- Fall Risk Assessment Last Done: 03/19/25 16:00
*ED COVID-19 Vaccine History Last Done: 03/19/25 16:00
*Nursing Disposition Last Done: 03/19/25 18:09
ED-Male Genitourinary Assessment Last Done: 03/19/25 16:00
Discharge Date and Time
Discharge Date/Time: 03/19/25 18:09
Print Language: MOROCCAN
[2025-03-19 15:58] VITALS: BP 133/71
[2025-03-19 16:00] VITALS: BP 126/71
[2025-03-19 17:08] LABS: Urine Character Clear (Clear)
[2025-03-19] MEDS: ROXICODONE 10 MG PO (17:09)
== END 2025-03-19 18:09 | disposition home or self-care (01) ==
LOC: EMR 13:22
PROVIDERS: EMERGENCY PHYSICIAN Student in an Organized Health Care Education/Training Program; FAMILY PHYSICIAN Nurse Practitioner
DX: M48.56XA Collapsed vertebra, not elsewhere classified, lumbar region, initial encounter for fracture (principal); M54.50 Low back pain, unspecified; G89.29 Other chronic pain; E03.9 Hypothyroidism, unspecified; E78.00 Pure hypercholesterolemia, unspecified; E11.9 Type 2 diabetes mellitus without complications; I11.0 Hypertensive heart disease with heart failure; I50.9 Heart failure, unspecified; I25.10 Atherosclerotic heart disease of native coronary artery without angina pectoris; I48.91 Unspecified atrial fibrillation; J44.9 Chronic obstructive pulmonary disease, unspecified; M06.9 Rheumatoid arthritis, unspecified; Z79.01 Long term (current) use of anticoagulants; Z79.52 Long term (current) use of systemic steroids; Z86.73 Personal history of transient ischemic attack (TIA), and cerebral infarction without residual deficits; Z87.440 Personal history of urinary (tract) infections
CPT/HCPCS: 99284; 72110; 80053; 81003; 85025; 87040

== ENCOUNTER 2025-08-21 03:29 | Emergency (ER) | payer MEDICARE, OTHER, SELFPAY ==
[2025-08-21 03:40] VITALS: BP 113/59
[2025-08-21] MEDS: TYLENOL 650 MG PO (05:07)
--- NOTE | 2025-08-21 06:01 | ED.GENMED ---
History of Present Illness
General
Chief Complaint: Nose Bleed
Source: patient
Exam Limitations: none
Time Seen by Provider: 08/21/25 04:09
Nursing documentation reviewed up to this point in time: agreed with
History of Present Illness
History of Present Illness:
Note:
CHIEF COMPLAINT(S)
Persistent epistaxis (nosebleed) for the past year and a half.
HISTORY OF PRESENT ILLNESS
The patient is an 89-year-old male with a history of traumatic nose injury sustained during his service in [place]. The patient reports a persistent nosebleed, primarily from one nostril, occurring over the past year and a half. He has been
on apixaban (Eliquis) as an anticoagulant, which may be exacerbating the bleeding. The patient noted that the bleeding began as heavy, and despite multiple attempts at intervention, including cauterization, it has not been adequately controlled. The
patient visited an Ear, Nose, and Throat (ENT) specialist who recently cauterized the affected nostril, and also used nasal packing with oxymetazoline (Neosynephrine) to stop the bleeding. The patient used the oxymetazoline intranasally three times
on the night of the visit, following advice from an emergency physician in [place], although his ENT advised against repeated use due to potential complications such as rebound congestion and addiction. The patient described the bleeding as
originally heavy, with nasal crusts forming and then lifting, resuming bleeding. Despite these efforts, the nosebleed resumed after pack removal.
PAST MEDICAL AND SURIGICAL HISTORY
- History of nosebleed for year and a half.
- Traumatic nose injury during [place] service with one nostril completely affected.
- Known history of multiple injuries from service, including leg wounds.
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
- History of service in [place] resulting in trauma-related health issues.
PHYSICAL EXAM
General: Alert, no acute distress.
Skin: Warm, dry.
Head: Normocephalic, atraumatic.
Neck: Supple, trachea midline.
Eye, Ears, Nose, Mouth, and Throat: Oral mucosa moist. Significantly dry blood and crusting observed in the affected nostril. Unable to visualize any distinct bleeding source due to dry blood.
Cardiovascular: Normal peripheral perfusion, No edema.
Respiratory: Respirations are non-labored.
Gastrointestinal: Abdomen nondistended.
Back: Normal range of motion, Normal alignment.
Musculoskeletal: Normal range of motion, normal strength.
Neurological: Alert and oriented to person, place, time, and situation, No focal neurological deficit observed.
Psychiatric: Cooperative, appropriate mood & affect.
PLAN
- Advise follow-up with an Ear, Nose, and Throat specialist for further evaluation and management of persistent epistaxis.
- Consideration of alternative or additional treatment options for epistaxis management due to ongoing bleeding despite current interventions.
- Counseling regarding the risks of overuse of oxymetazoline nasal spray to avoid complications of rebound congestion.
DIFFERENTIAL DIAGNOSIS
The Differential Diagnosis includes, in no particular order and is not limited to:
- Trauma-related nasal injury
- Anticoagulation-related epistaxis
- Nasal septal perforation
- Hereditary hemorrhagic telangiectasia
- Hypertension-induced bleeding
- Coagulopathy
- Nasal tumor or polyp
- Chronic sinusitis
- Aneurysm of a sphenopalatine artery
- Allergic rhinitis-induced nasal vessels friability
Disposition:
SUMMARY OF ENCOUNTER
The patient, an 89-year-old male, presented to the emergency department with right nostril epistaxis. The patient reported having identical bleeding last week, which was evaluated by an ENT specialist who treated the issue successfully at that time.
The patient denies any acute symptoms and reports a history of traumatic nose injury sustained during [place] service. He is not on any blood thinners currently. The patients nasal bleeding was managed as per previous ENT recommendations, and he was
assessed for any further acute issues or complications.
DISPOSITION
Discharge home.
ASSESSMENT
Traumatic-related nasal injury leading to epistaxis.
PLAN
The patient is advised to maintain follow-up care with the ENT specialist to ensure the effective management of his recurrent epistaxis and to explore additional treatment options if necessary.
PATIENT EDUCATION AND COUNSELING
The patient was counseled on the importance of follow-up care with his ENT specialist and discussed avoiding any known factors that might exacerbate the bleeding.
FOLLOW-UP INSTRUCTIONS
Please follow up with the ENT specialist to evaluate the current treatment plan and consider other treatment modalities if needed.
MEDICATION RECONCILIATION
No new medications prescribed or administered during this emergency department visit.
MEDICAL DECISION MAKING
-Complexity of Data Reviewed:
Chronic conditions affecting care include traumatic-related nasal injury and history of multiple service-related injuries. The differential diagnosis for his nasal bleeding included trauma-related nasal injury, nasal septal perforation,
hypertension-induced bleeding, and coagulopathy, but no new acute conditions were noted.
-Data:
Category 1:
There were no new tests or data reviewed during this visit. The patient reports previous management by an ENT specialist.
-Risk:
Patient management includes emphasizing the need for follow-up with an ENT specialist to avoid potential complications of recurrent epistaxis.
DIAGNOSIS
- Traumatic epistaxis due to service injury (ICD-10: S09.9XXA)
- Recurrent epistaxis with no acute complications (ICD-10: R04.0)
Past History
Past History
ED Past Medical History: Arrthythmia, CHF, COPD, CVA, HTN, Hypercholesterolemia, NIDDM, Other (Interstitial lung disease) and Other (AAA)
ED Past Surgical History: Orthopedic (Right knee replacement, kyphoplasty) and Other (Left carotid endarterectomy, aortic aneurysm repair)
Social History
Tobacco: Non-smoker
Alcohol: None
Drug: None
Personal:
Living: assisted living
Phy Exam
Physical Exam
Physical Exam:
.
Course
Orders/Labs/Results
Orders:
Orders
08/21/25 04:19
Phenylephrine 0.5% Regular Spr [[place]-Synephrine 0.5% Nasal [place]] 1 spray .ROUTE .STK-MED ONE
08/21/25 05:03
Acetaminophen [Tylenol] 650 mg .ROUTE .STK-MED ONE
08/21/25 05:05
Acetaminophen [Tylenol] 650 mg PO NOW STA
Vital Signs
Initial and Last Documented VS:
Initial Vital Signs
Temp Pulse Resp BP Pulse Ox
97.9 F 70 26 113/59 90
08/21/25 03:40 08/21/25 03:40 08/21/25 03:40 08/21/25 03:40 08/21/25 03:40
Last Documented Vital Signs
Temp Pulse Resp BP Pulse Ox
97.9 F 70 26 113/59 90
08/21/25 03:40 08/21/25 03:40 08/21/25 03:40 08/21/25 03:40 08/21/25 06:02
*Pulse Oximetry
SaO2: 90
Oxygen Mode of Delivery: Room air
Patient hypoxic: no
*Critical Care Note
Total Time (30-74mins, 75-104mins- exclusive of procedures): Not Applicable
ED Attending Note
-
Portions of this chart may have been created with voice recognition software.� Occasional wrong word or��sound alike� substitutions may have occurred due to the inherent limitations of voice recognition software.
Discharge Plan
Departure
Patient Disposition: Home (Routine Discharge)
Date of Disposition: 08/21/25
Time of Disposition: 06:24
Patient with high blood pressure during this ER visit?: Yes
Condition: Good
Discharge Problem:
Acute anterior epistaxis
Instructions: Nosebleeds (DC), BLOOD PRESSURE
Prescriptions:
No Action
sulfamethoxazole-trimethoprim 800-160 mg Tablet
1 tab PO MOWEFR
mycophenolate mofetil 500 mg Tablet
1,000 mg PO BID
Eliquis 5 mg tablet
5 mg PO BID
gabapentin 300 mg Capsule
300 mg PO BID
acetaminophen 325 mg tablet
650 mg PO Q4HPRN PRN (Reason: mild pain/fever)
guaifenesin 600 mg tablet extended release 12hr
600 mg PO Q12H
levothyroxine [Synthroid] 100 mcg Tablet
100 mcg PO DAILY
metoprolol succinate 50 mg tablet extended release 24 hr
50 mg PO DAILY
sitagliptin 100 mg Tablet
100 mg PO DAILY
furosemide [Lasix] 40 mg Tablet
40 mg PO DAILY
benzonatate 100 mg Capsule
100 mg PO Q8HPRN PRN (Reason: cough)
docusate sodium [Colace] 100 mg Capsule
100 mg PO BID Qty: 0 0RF
atorvastatin 40 mg Tablet
40 mg PO HS
methocarbamol 500 mg Tablet
500 mg PO Q6HPRN PRN (Reason: muscle spasms)
ondansetron HCl 4 mg Tablet
4 mg PO Q6HPRN PRN (Reason: nausea/vomiting)
sertraline 50 mg Tablet
50 mg PO HS
zinc oxide 13 % Cream
1 applic TOPICAL BID
Yugjktddzqp-Edcgi-XXF Complex 571-010-88-0.5 mg Tablet
1 tab PO DAILY
lidocaine 4 % adhesive patch,medicated
1 patch topical DAILY
Rx Instructions:
lower back
tamsulosin 0.4 mg capsule
0.4 mg PO DAILY
oxycodone 5 mg Tablet
5 mg PO Q6HPRN PRN (Reason: moderate pain)
saxagliptin 5 mg Tablet
5 mg PO DAILY
empagliflozin 25 mg Tablet
12.5 mg PO DAILY
oxycodone 10 mg tablet
10 mg PO TIDPRN PRN (Reason: severe pain)
doxycycline hyclate 100 mg capsule
100 mg PO Q12
doxycycline hyclate 100 mg Capsule
100 mg PO Q12 Qty: 6 0RF
prednisone 20 mg tablet
20 mg PO DAILY Qty: 2 0RF
prednisone 5 mg Tablet
17.5 mg PO DAILY Qty: 0 0RF
Rx Instructions:
start on 03/01/2025
Referrals:
Magdiel Camargo MD [Active, Otology]
Souleymane Denis DO [Family Provider, Internal Medicine]
Activity Restrictions/Additional Instructions:
Thank You for choosing [facility].
It was a pleasure meeting you and taking part in your care. We hope for your continued healing and wellness.
Please read discharge instructions in their entirety. However, they are for general education and may not describe your exact diagnosis at discharge. Information on your ER visit and medical conditions were discussed with you along with appropriate
follow up information...
If indicated, please take your medications as instructed and indicated on discharge paperwork.
Please schedule a follow up appointment as directed. Call to schedule an appointment
Please return to the emergency department with ANY change in, persisting, or worsening of symptoms. If any of your symptoms do not improve, or persist, or become more severe within 6-12 hours, please return to the emergency department for further
care.
Please return to the emergency department if you develop a headache, neck pain/stiffness, fever greater than 100.4F, chest pain, shortness of breath, persistent nausea, vomiting, slurred speech, difficulty walking, numbness/tingling, weakness, signs
of infection or any other symptoms that are worrisome to you.
If you have any questions or concerns please do not hesitate to call the Hospital at .
Interventions
Interventions:
*General Assessment Last Done: 08/21/25 04:00
*Neglect/Abuse Screening Last Done: 08/21/25 04:00
*ED COVID-19 Vaccine History Last Done: 08/21/25 04:00
*ED Influenza Vaccine History Last Done: 08/21/25 04:00
[facility] Risk Assessment Tool Last Done: 08/21/25 04:00
*Risk Screen - Suicide (C-SSRS) Last Done: 08/21/25 03:40
*Nursing Disposition Last Done: 08/21/25 07:40
ED-EENT Assessment Last Done: 08/21/25 04:00
Discharge Date and Time
Discharge Date/Time: 08/21/25 07:40
Print Language: ARMENIAN
== END 2025-08-21 07:40 | disposition home or self-care (01) ==
LOC: EMR 03:29
PROVIDERS: EMERGENCY PHYSICIAN Student in an Organized Health Care Education/Training Program; FAMILY PHYSICIAN Internal Medicine
DX: S09.92XA Unspecified injury of nose, initial encounter (principal); R04.0 Epistaxis; X58.XXXA Exposure to other specified factors, initial encounter; I11.0 Hypertensive heart disease with heart failure; I50.9 Heart failure, unspecified; E78.00 Pure hypercholesterolemia, unspecified; E11.9 Type 2 diabetes mellitus without complications; J84.9 Interstitial pulmonary disease, unspecified; J44.9 Chronic obstructive pulmonary disease, unspecified; I48.91 Unspecified atrial fibrillation; F32.A Depression, unspecified; F41.9 Anxiety disorder, unspecified; Z79.01 Long term (current) use of anticoagulants; Z79.84 Long term (current) use of oral hypoglycemic drugs; Z86.73 Personal history of transient ischemic attack (TIA), and cerebral infarction without residual deficits; Z96.651 Presence of right artificial knee joint; Z86.79 Personal history of other diseases of the circulatory system; Z88.5 Allergy status to narcotic agent
CPT/HCPCS: 99283